=== PATIENT | male | born 1935 | race Caucasian/White ===

== ENCOUNTER 2017-06-27 16:12 | Inpatient (IN) | payer OTHER, MEDICARE ==
--- NOTE | 2017-06-27 16:53 | PDOC ---
History of Present Illness - General History Source: Patient Exam Limitations: No Limitations - History of Present Illness Initial Comments: 06/27/17 17:22 The patient is a 82 year old male with a significant past medical history of breast cancer s/p right mastectomy (2003), anemia, AFib (1999 on coumadin, PPM, 2004), s/p pacemaker, diabetes, hypertension and hyperlipidemia who presents to the ED, via EMS, s/p injury earlier today. Patient states he was at [employer] in a self-driving shopping cart when he went to turn a corner and fell onto his left side. Patient comes into the ED with a wound to his left wrist, pain to his left shoulder and pain to his left hip. Denies head injury. Denies loss of consciousness. Denies focal numbness, weakness or tingling. Denies nausea or vomiting. Denies any other symptoms. <Nishant Sutton - Last Filed: 06/27/17 19:55> <Barbara Orellana - Last Filed: 06/27/17 23:09> - General Stated Complaint: FALL Time Seen by Provider: 06/27/17 16:29 Past History <Nishant Sutton - Last Filed: 06/27/17 19:55> - Past Medical History Anemia: Yes Asthma: No Cancer: Yes (S/P RIGHT BREAST CANCER;MASTECTOMY 2003) Cardiac Disorders: Yes (H/O A FIB 1999,PPM 2004) CVA: No COPD: No CHF: No Dementia: No Diabetes: Yes GI Disorders: No Disorders: No HTN: Yes Hypercholesterolemia: Yes Liver Disease: No Seizures: No Thyroid Disease: No - Surgical History Abdominal Surgery: No Appendectomy: No Cardiac Surgery: Yes (PACEMAKER) Cholecystectomy: No Lung Surgery: No Neurologic Surgery: No Orthopedic Surgery: No - Immunization History Immunization Up to Date: Yes - Suicide/Smoking/Psychosocial Hx Smoking Status: No Smoking History: Unknown if ever smoked Have you smoked in the past 12 months: No Number of Cigarettes Smoked Daily: 0 Cigars Per Day: 0 Hx Alcohol Use: No Drug/Substance Use Hx: No Substance Use Type: None Hx Substance Use Treatment: No <Barbara Orellana - Last Filed: 06/27/17 23:09> - Past Medical History Allergies/Adverse Reactions: Allergies Allergy/AdvReac Type Severity Reaction Status Date / Time levofloxacin [From Levaquin] Allergy Rash Verified 06/27/17 17:39 Home Medications: Ambulatory Orders Colchicine [Colcrys] 0.6 mg PO DAILY 03/27/15 Pantoprazole Sodium [Protonix] 40 mg PO DAILY 03/27/15 Sertraline HCl [Zoloft -] 50 mg PO DAILY 03/27/15 Simvastatin [Zocor -] 20 mg PO HS 03/27/15 Amlodipine Besylate [Norvasc -] 5 mg PO DAILY #30 tablet 09/27/15 Carvedilol [Coreg -] 25 mg PO BID #60 tablet 09/27/15 Furosemide [Lasix -] 40 mg PO DAILY #30 tablet 09/27/15 Polyethylene Glycol 3350 [Miralax 119 gm Btl -] 17 gm PO DAILY PRN #1 bottle Valsartan [Diovan] 160 mg PO DAILY #30 tablet 09/27/15 Warfarin Na [Coumadin -] 5 mg PO DAILY@1800 #30 tablet 09/27/15 Review of Systems - Review of Systems Able to Perform ROS?: Yes Comments:: 06/27/17 17:22 CONSTITUTIONAL: Absent: fever, chills, diaphoresis, generalized weakness, malaise, loss of appetite HEENT: Absent: rhinorrhea, nasal congestion, throat pain, throat swelling, difficulty swallowing, mouth swelling, ear pain, eye pain, visual Changes CARDIOVASCULAR: Absent: chest pain, syncope, palpitations, irregular heart rate, lightheadedness , peripheral edema RESPIRATORY: Absent: cough, shortness of breath, dyspnea with exertion, orthopnea, wheezing, stridor, hemoptysis GASTROINTESTINAL: Absent: abdominal pain, abdominal distension, nausea, vomiting, diarrhea, constipation, melena, hematochezia GENITOURINARY: Absent: dysuria, frequency, urgency, hesitancy, hematuria, flank pain, genital pain MUSCULOSKELETAL: + left hip pain, left shoulder pain Absent: joint swelling SKIN: + wrist wound Absent: rash, itching, pallor HEMATOLOGIC/IMMUNOLOGIC: Absent: easy bleeding, easy bruising, lymphadenopathy, frequent infections ENDOCRINE: Absent: unexplained weight gain, unexplained weight loss, heat intolerance, cold intolerance NEUROLOGIC: Absent: headache, focal weakness or paresthesias, dizziness, unsteady gait, seizure, mental status changes, bladder or bowel incontinence PSYCHIATRIC: Absent: anxiety, depression, suicidal or homicidal ideation, hallucinations. All Other Systems: Reviewed and Negative <Nishant Sutton - Last Filed: 06/27/17 19:55> *Physical Exam - Physical Exam Comments: 06/27/17 17:22 GENERAL: + cachectic Awake and alert. No acute distress. HEENT: Normocephalic, atraumatic. PERRLA, EOMI. No conjunctival pallor. Sclera are non- icteric. Moist mucous membranes. Oropharynx is clear. NECK: Supple. Full ROM. No JVD. Carotid pulses 2+ and symmetric, without bruits. No thyromegaly. No lymphadenopathy. CARDIOVASCULAR: Regular rate and rhythm. No murmurs, rubs, or gallops. Distal pulses are 2+ and symmetric. PULMONARY: No evidence of respiratory distress. Lungs clear to auscultation bilaterally. No wheezing, rales or rhonchi. ABDOMINAL: Soft. Non-tender. Non-distended. No rebound or guarding. No organomegaly. Normoactive bowel sounds. MUSCULOSKELETAL Normal range of motion at all joints. No bony deformities or tenderness. No CVA tenderness. EXTREMITIES: + left shoulder pain, left hip pain No cyanosis. No clubbing. No edema. No calf tenderness. SKIN: + abrasion on left wrist. well healed right mastectomy scar Warm and dry. Normal capillary refill. No rashes. No jaundice. NEUROLOGICAL: + require walker for ambulation Alert, awake, appropriate. Cranial nerves 2-12 intact. No deficits to light touch and temperature in face, upper extremities and lower extremities. No motor deficits in the in face, upper extremities and lower extremities. Normoreflexic in the upper and lower extremities. Normal speech. Toes are down- going bilaterally. PSYCHIATRIC: Cooperative. Good eye contact. Appropriate mood and affect. <Nishant Sutton - Last Filed: 06/27/17 19:55> ED Treatment Course - RADIOLOGY Radiograph Interpretation: 06/27/17 19:55 EXAM: CT HEAD WITHOUT IV CONTRAST IMPRESSION: No acute intracranial abnormality or skull fracture. This CT exam has been performed using low dose protocols to limit radiation exposure to as low as reasonably achievable. This center is recognized and certified by the [employer], a designation awarded to centers who have demonstrated faculty competency, clinical image excellence and radiation safety compliance requirements. Reported by: Imaging loan documentation specialist <Nishant Sutton - Last Filed: 06/27/17 19:55> - LABORATORY CBC & Chemistry Diagram: 06/27/17 19:42 06/27/17 19:42 - RADIOLOGY Radiology Studies Ordered: Category Date Time Status HEAD CT WITHOUT CONTRAST [CT] Stat CT Scan 06/27/17 16:51 Ordered <Barbara Orellana - Last Filed: 06/27/17 23:09> *DC/Admit/Observation/Transfer - Attestations Scribe Attestion: 06/27/17 17:23 Documentation prepared by Nishant Sutton, acting as diagnostic medical sonographer for Barbara Orellana MD <Nishant Sutton - Last Filed: 06/27/17 19:55> - Discharge Dispostion Decision to Admit order: Yes <Barbara Orellana - Last Filed: 06/27/17 23:09> Diagnosis at time of Disposition: Pacemaker, Supratherapeutic INR Chronic kidney disease (CKD) Qualifiers: Chronic kidney disease stage: unspecified stage Qualified Code(s): N18.9 - Chronic kidney disease, unspecified Anemia Qualifiers: Anemia type: unspecified type Qualified Code(s): D64.9 - Anemia, unspecified Afib Qualifiers: Atrial fibrillation type: chronic Qualified Code(s): I48.2 - Chronic atrial fibrillation Closed left hip fracture Qualifiers: Encounter type: initial encounter Qualified Code(s): S72.002A - Fracture of unspecified part of neck of left femur, initial encounter for closed fracture Shoulder injury Qualifiers: Encounter type: initial encounter Laterality: left Qualified Code(s): S49.92XA - Unspecified injury of left shoulder and upper arm, initial encounter - Referrals Referrals: Garret Huang MD [Primary Care Provider] - - Patient Instructions - Post Discharge Activity
[2017-06-27 17:39] VITALS: BMI 22.1
[2017-06-27] MEDS ORDERED: morphine CARPU-JECT 2 MG/1 ML DISP.SYRIN IVPUSH ONE (20:04)
[2017-06-27] MEDS ORDERED: morphine SULFATE 4 MG/ML VIAL ONE (20:33)
[2017-06-27 20:52] LABS: BASO % 0.6 % (0-2.0); EOS % 0.8 % (0-4.5); HEMOGLOBIN 10.4 GM/dL (11.7-16.9); LYMPH % 15.1 % (8-40); MCH 27.8 pg (25.7-33.7); MCHC 32.5 g/dl (32.0-35.9); MEAN CELL VOLUME 85.5 fl (80-96); MEAN PLT VOLUME 8.8 fl (7.5-11.1); NEUT % 68.5 % (42.8-82.8); PLATELET COUNT 203 K/MM3 (134-434); RBC 3.75 M/mm3 (4.00-5.60); RDW 20.2 % (11.9-15.9); WHITE BLOOD COUNT 5.3 K/mm3 (4.0-10.0)
[2017-06-27 21:08] LABS: PROTHROMBIN TIME (PATIENT) 69.9 SEC (9.7-13.0)
[2017-06-27 21:14] LABS: INR 6.19 (0.82-1.09)
[2017-06-27 21:19] LABS: ALBUMIN 3.1 g/dl (3.4-5.0); ALK PHOS 131 U/L (45-117); ANION GAP 9 (8-16); BILIRUBIN,TOTAL 0.9 mg/dL (0.2-1.0); BLOOD UREA NITROGEN 57 mg/dL (7-18); CALCIUM 8.7 mg/dL (8.5-10.1); CHLORIDE 101 mmol/L (98-107); CO2 28 mmol/L (21-32); CREATININE 1.9 mg/dL (0.7-1.3); GLUCOSE,RANDOM 92 mg/dL (74-106); POTASSIUM 3.9 mmol/L (3.5-5.1); SGOT/AST 21 U/L (15-37); SGPT/ALT 24 U/L (12-78); SODIUM 138 mmol/L (136-145); TOT PROT 6.4 g/dl (6.4-8.2)
--- NOTE | 2017-06-27 23:29 | HP ---
CHIEF COMPLAINT: L hip and shoulder pain PCP: Sal HISTORY OF PRESENT ILLNESS: This is an 82 year old male with a significant PMH of Afib on warfarin, anemia, HTN< CHF who presented to the ED s/p mechanical fall. Pt states that he was riding a mechanical shopping cart which tipped when he made a turn and he fell onto his left side. He is c/o pain to left shoulder and left hip. ER course was notable for: (1) L hip fx (2) ? L shoulder avulsion fx (3) INR 6.1 Recent Travel: pt denies PAST MEDICAL HISTORY: Afib, HTN, HLD, CHF, Anemia, DM, BrCA R, gout PAST SURGICAL HISTORY: PPM R mastectomy with LND (negative) 2003 PPM 2004 Social History: Smoking: pt denies Alcohol: pt denies Drugs: pt denies Family History: mother age 82, unk COD father age 86, unk COD Allergies levofloxacin [From Levaquin] Allergy (Verified 06/27/17 17:39) Rash HOME MEDICATIONS: 3 Medication Instructions Recorded Colchicine [Colcrys] 0.6 mg PO DAILY 03/27/15 Pantoprazole Sodium [Protonix] 40 mg PO DAILY 03/27/15 Sertraline HCl [Zoloft -] 50 mg PO DAILY 03/27/15 Simvastatin [Zocor -] 20 mg PO HS 03/27/15 Amlodipine Besylate [Norvasc -] 5 mg PO DAILY #30 tablet 09/27/15 Carvedilol [Coreg -] 25 mg PO BID #60 tablet 09/27/15 Furosemide [Lasix -] 40 mg PO DAILY #30 tablet 09/27/15 Polyethylene Glycol 3350 [Miralax 17 gm PO DAILY PRN #1 bottle 09/27/15 119 gm Btl -] Valsartan [Diovan] 160 mg PO DAILY #30 tablet 09/27/15 Warfarin Na [Coumadin -] 5 mg PO DAILY@1800 #30 tablet 09/27/15 REVIEW OF SYSTEMS CONSTITUTIONAL: Absent: fever, chills, diaphoresis, generalized weakness, malaise, loss of appetite, weight change HEENT: Absent: rhinorrhea, nasal congestion, throat pain, throat swelling, difficulty swallowing, mouth swelling, ear pain, eye pain, visual changes CARDIOVASCULAR: Absent: chest pain, syncope, palpitations, irregular heart rate, lightheadedness , peripheral edema RESPIRATORY: Absent: cough, shortness of breath, dyspnea with exertion, orthopnea, wheezing, stridor, hemoptysis GASTROINTESTINAL: Absent: abdominal pain, abdominal distension, nausea, vomiting, diarrhea, constipation, melena, hematochezia GENITOURINARY: Absent: dysuria, frequency, urgency, hesitancy, hematuria, flank pain, genital pain MUSCULOSKELETAL: Present: L hip and shoulder pain Absent: myalgia, arthralgia, joint swelling, back pain, neck pain SKIN: Absent: rash, itching, pallor HEMATOLOGIC/IMMUNOLOGIC: Absent: easy bleeding, easy bruising, lymphadenopathy, frequent infections ENDOCRINE: Absent: unexplained weight gain, unexplained weight loss, heat intolerance, cold intolerance NEUROLOGIC: Absent: headache, focal weakness or paresthesias, dizziness, unsteady gait, seizure, mental status changes, bladder or bowel incontinence PSYCHIATRIC: Absent: anxiety, depression, suicidal or homicidal ideation, hallucinations. PHYSICAL EXAMINATION Vital Signs - 24 hr 3 06/27/17 17:37 Temperature 97.3 F L Pulse Rate 67 Respiratory 17 Rate Blood Pressure 103/66 O2 Sat by Pulse 98 Oximetry (%) GENERAL: Awake, alert, and fully oriented, in no acute distress. HEAD: Normal with no signs of trauma. EYES: Pupils equal, round and reactive to light, extraocular movements intact, sclera anicteric, conjunctiva clear. No lid lag. EARS, NOSE, THROAT: Ears normal, nares patent, oropharynx clear without exudates. Moist mucous membranes. NECK: Normal range of motion, supple without lymphadenopathy, JVD, or masses. LUNGS: Breath sounds equal, clear to auscultation bilaterally. No wheezes, and no crackles. No accessory muscle use. HEART: Regular rate and rhythm, normal S1 and S2 without murmur, rub or gallop. ABDOMEN: Soft, nontender, not distended, normoactive bowel sounds, no guarding, no rebound, no masses. No hepatomegaly or splenomegaly. MUSCULOSKELETAL: Normal range of motion at all joints except L hip. No bony deformities or tenderness. No CVA tenderness. L leg shortened and rotated UPPER EXTREMITIES: 2+ pulses, warm, well-perfused. No cyanosis. No clubbing. No peripheral edema. LOWER EXTREMITIES: 2+ pulses, warm, well-perfused. No calf tenderness. No peripheral edema. NEUROLOGICAL: Cranial nerves II-XII intact. Normal speech. PSYCHIATRIC: Cooperative. Good eye contact. Appropriate mood and affect. SKIN: Warm, dry, normal turgor, no rashes or lesions noted, normal capillary refill. Laboratory Results - last 24 hr 3 06/27/17 06/27/17 06/27/17 06/27/17 19:42 19:42 19:42 19:47 WBC 5.3 D RBC 3.75 L D Hgb 10.4 L D Hct 32.0 L MCV 85.5 MCH 27.8 MCHC 32.5 RDW 20.2 H D Plt Count 203 D MPV 8.8 D Neutrophils % 68.5 Lymphocytes % 15.1 Monocytes % 15.0 H Eosinophils % 0.8 Basophils % 0.6 PT with INR 69.90 H INR 6.19 H* D Sodium 138 Potassium 3.9 Chloride 101 Carbon Dioxide 28 Anion Gap 9 BUN 57 H Creatinine 1.9 H Creat Clearance w eGFR 34.19 Random Glucose 92 D Calcium 8.7 Total Bilirubin 0.9 D AST 21 D ALT 24 D Alkaline Phosphatase 131 H B-Natriuretic Peptide 7633.37 H Total Protein 6.4 Albumin 3.1 L Blood Type B POSITIVE Antibody Screen Negative ECG ventricular paced rhythm with frequent premature ventricular complexes vent rate 66, QTC 555 Radiology Report L hip xray + fem neck fracture L shoulder ? avulsion fx CT head, read pending ASSESSMENT/PLAN: 82yM with PMH Afib, HTN, HLD, CHF, Anemia, DM, BrCA R mastectomy, gout, PPM presented to the ED with left hip and shoulder pain s/p fall. Left hip fracture - ortho consult - INR elevated, hold warfarin - will need surgery when INR normalizes - morphine prn Left shoulder pain, ? avulsion fx - await xray read - ortho consult Afib with supratherapeutic INR - INR 6.1, hold coumadin, if active bleeding noted or drop in H/H will give vit K HTN/HLD/CHF - cont home meds, no s/s fluid overload. DM - as per history, glucose 92 on labs, cont to monitor on BMP and add novolog ss and bgm if elevated CKD - bun / cr close to baseline, cont to monitor DVT PPX - heparin deferred as INR elevated, would start after surgery FEN - defer IVF. tolerating po - BMP in am - low sodium diet as tolerated Dispo: pt currently requires further inpatient management of his emergent condition. Visit type - Emergency Visit Emergency Visit: Yes ED Registration Date: 06/27/17 Care time: The patient presented to the Emergency Department on the above date and was hospitalized for further evaluation of their emergent condition. - New Patient This patient is new to me today: Yes Date on this admission: 06/27/17 - Critical Care Critical Care patient: No Hospitalist Screening - Colonoscopy Questionnaire Colonoscopy Questionnaire: Colonoscopy Questionnaire - Patient: 50 - 75 years old and never had a screening colonoscopy: No History of colon or rectal polyps, or CA: No History of IBD, Crohn's disease or UC: No History of abdominal radiation therapy as a child: No - Relative: 1 with colon or rectal CA, or polyps at age 60 or younger: No Colon or rectal CA diagnosed at age 45 or younger: No Multiple relatives with colon or rectal CA: No - Outcome: Screening Result: Negative Screen
[2017-06-28] MEDS ORDERED: morphine CARPU-JECT 4 MG/1 ML DISP.SYRIN IVPUSH STA (00:02)
[2017-06-28] MEDS ORDERED: morphine SULFATE 4 MG/ML VIAL ONE (00:04)
[2017-06-28] MEDS ORDERED: POLYETHYLENE GLYCOL 3350 119 GM BTL PO PRN (00:35)
[2017-06-28] MEDS: morphine CARPU-JECT 2 MG/1 ML DISP.SYRIN IVPUSH PRN ×2 (06:02→10:41)
[2017-06-28] MEDS ORDERED: morphine CARPU-JECT 2 MG/1 ML DISP.SYRIN ONE ×2 (06:03→10:38)
[2017-06-28 07:45] LABS: BASO % 0.8 % (0-2.0); EOS % 1.4 % (0-4.5); HEMATOCRIT 29.4 % (35.4-49); HEMOGLOBIN 9.7 GM/dL (11.7-16.9); LYMPH % 19.4 % (8-40); MCH 28.2 pg (25.7-33.7); MCHC 32.9 g/dl (32.0-35.9); MEAN CELL VOLUME 85.9 fl (80-96); MEAN PLT VOLUME 9.3 fl (7.5-11.1); MONO % 17.8 % (3.8-10.2); NEUT % 60.6 % (42.8-82.8); PLATELET COUNT 187 K/MM3 (134-434); RBC 3.43 M/mm3 (4.00-5.60); RDW 20.1 % (11.9-15.9); WHITE BLOOD COUNT 4.3 K/mm3 (4.0-10.0)
[2017-06-28 08:22] LABS: CHLORIDE 99 mmol/L (98-107); POTASSIUM 3.8 mmol/L (3.5-5.1); SODIUM 137 mmol/L (136-145)
[2017-06-28 08:38] LABS: ANION GAP 9 (8-16); BLOOD UREA NITROGEN 60 mg/dL (7-18); CALCIUM 8.6 mg/dL (8.5-10.1); CO2 29 mmol/L (21-32); CREATININE 1.9 mg/dL (0.7-1.3); GLUCOSE,RANDOM 155 mg/dL (74-106); MAGNESIUM 2.1 mg/dL (1.8-2.4); PHOSPHOROUS 3.7 mg/dL (2.5-4.9)
[2017-06-28] MEDS ORDERED: VALSARTAN 160 MG TABLET (UD) PO SCH (10:00)
[2017-06-28] MEDS ORDERED: COLCHICINE 0.6 MG TABLET (FP) PO SCH (10:00)
[2017-06-28] MEDS ORDERED: FUROSEMIDE 40 MG TABLET (FP) PO SCH (10:00)
[2017-06-28] MEDS ORDERED: CARVEDILOL 25 MG TABLET (FP) PO SCH (10:00)
[2017-06-28] MEDS ORDERED: PANTOPRAZOLE 40 MG TABLET (FP) PO SCH (10:00)
[2017-06-28] MEDS ORDERED: SERTRALINE HCL 50 MG TABLET (FP) PO SCH (10:00)
[2017-06-28] MEDS ORDERED: amLODIPine BESYLATE 5 MG TABLET (FP) PO SCH (10:00)
[2017-06-28 10:07] LABS: PROTHROMBIN TIME (PATIENT) 88.2 SEC (9.7-13.0)
[2017-06-28 10:31] LABS: INR 7.81 (0.82-1.09)
--- NOTE | 2017-06-28 11:33 | CON.ORTH ---
Consult Reason for Consultation:: left hip fx, shoulder fx - Past Medical History Cardio/Vascular: Yes: AFIB, CAD, CHF, HTN, Hyperlipdemia Renal/: Yes: Renal Inusuff Endocrine: Yes: Diabetes Mellitus - Past Surgical History Past Surgical History: Yes: Permanent Pacemaker - Alcohol/Substance Use Hx Alcohol Use: No - Smoking History Smoking history: Unknown if ever smoked Have you smoked in the past 12 months: No Aproximately how many cigarettes per day: 0 Home Medications - Allergies Allergies/Adverse Reactions: Allergies Allergy/AdvReac Type Severity Reaction Status Date / Time levofloxacin [From Levaquin] Allergy Rash Verified 06/27/17 17:39 - Home Medications Home Medications: Ambulatory Orders Colchicine [Colcrys] 0.6 mg PO DAILY 03/27/15 Pantoprazole Sodium [Protonix] 40 mg PO DAILY 03/27/15 Sertraline HCl [Zoloft -] 50 mg PO DAILY 03/27/15 Simvastatin [Zocor -] 20 mg PO HS 03/27/15 Amlodipine Besylate [Norvasc -] 5 mg PO DAILY #30 tablet 09/27/15 Carvedilol [Coreg -] 25 mg PO BID #60 tablet 09/27/15 Furosemide [Lasix -] 40 mg PO DAILY #30 tablet 09/27/15 Polyethylene Glycol 3350 [Miralax 119 gm Btl -] 17 gm PO DAILY PRN #1 bottle Valsartan [Diovan] 160 mg PO DAILY #30 tablet 09/27/15 Warfarin Na [Coumadin -] 5 mg PO DAILY@1800 #30 tablet 09/27/15 Physical Exam for Ortho Vital Signs: Vital Signs Temperature 98.6 F 06/28/17 05:39 Pulse Rate 73 06/28/17 10:42 Respiratory Rate 18 06/28/17 10:42 Blood Pressure 113/71 06/28/17 10:42 O2 Sat by Pulse Oximetry (%) 100 06/28/17 10:42 Labs: CBC, BMP 06/28/17 06:33 06/28/17 06:33 INR, PTT INR 7.81 (0.82-1.09) H* 06/28/17 09:35 - Upper Extremity Shoulder: Yes: Left, Limited ROM, Pain, Tenderness, Other (nvi) - Lower Extremity Hip: Yes: Left, Decreased ROM, Leg Externally Rotated, Leg Shortened, Pain, Swelling, Other (nvi) Imaging - Results X-ray: Report Reviewed, Image Reviewed Assessment/Plan 82 year old male with a significant PMH of Afib on warfarin, anemia, HTN< CHF who presented to the ED s/p mechanical fall. Pt states that he was riding a mechanical shopping cart which tipped when he made a turn and he fell onto his left side. He is c/o pain to left shoulder and left hip. a/p left displaced femoral neck fx, left acromion avulsion fx NTD for acromion other than pain control, ROM exercises- no immobilization needed Risks and benefits were d/w pt and family regarding left hip Recommend left hip hemiarthroplasty Pt and family are thinking about transferring to another hospital If decide not to, will need surgical clearance INR significantly elevated Family to decide shortly d/w Dr. Sandoval
--- NOTE | 2017-06-28 11:49 | PN ---
Progress Note, Physician History of Present Illness: pt seen/ examined in er chart reviewed. comfortable pain ok Family at bedside Requesting transfer to [facility] Pt denies cp/ sob. no bleeding - Current Medication List Current Medications: Active Medications Amlodipine Besylate (Norvasc -) 5 mg PO DAILY [facility] Last Admin: 06/28/17 10:18 Dose: 5 mg Atorvastatin Calcium (Lipitor -) 10 mg PO [facility] Carvedilol (Coreg -) 25 mg PO BID [facility] Last Admin: 06/28/17 10:17 Dose: 25 mg Colchicine (Colcrys -) 0.6 mg PO DAILY [facility] Last Admin: 06/28/17 10:17 Dose: 0.6 mg Furosemide (Lasix -) 40 mg PO DAILY [facility] Last Admin: 06/28/17 10:18 Dose: 40 mg Morphine Sulfate (Morphine Injection -) 2 mg IVPUSH Q4H PRN PRN Reason: PAIN LEVEL 6-10 Last Admin: 06/28/17 10:41 Dose: 2 mg Pantoprazole Sodium (Protonix -) 40 mg PO DAILY [facility] Last Admin: 06/28/17 10:18 Dose: 40 mg Polyethylene Glycol (Miralax (For Daily Use) -) 17 gm PO DAILY PRN PRN Reason: CONSTIPATION Sertraline HCl (Zoloft -) 50 mg PO DAILY [facility] Last Admin: 06/28/17 10:18 Dose: 50 mg Valsartan (Diovan -) 160 mg PO DAILY [facility] Last Admin: 06/28/17 10:18 Dose: 160 mg - Objective Vital Signs: Vital Signs Temperature 98.6 F 06/28/17 05:39 Pulse Rate 73 06/28/17 10:42 Respiratory Rate 18 06/28/17 10:42 Blood Pressure 113/71 06/28/17 10:42 O2 Sat by Pulse Oximetry (%) 100 06/28/17 10:42 Constitutional: Yes: No Distress, Calm Eyes: Yes: Conjunctiva Clear Neck: Yes: Supple, Trachea Midline Cardiovascular: Yes: Pulse Irregular Respiratory: Yes: Diminished Gastrointestinal: Yes: Normal Bowel Sounds, Soft, Other (Anterior Abdominal wall hernia +) Edema: No Peripheral Pulses WNL: Yes Neurological: Yes: Alert Psychiatric: Yes: Alert Labs: CBC, BMP 06/28/17 06:33 06/28/17 06:33 INR, PTT INR 7.81 (0.82-1.09) H* 06/28/17 09:35 - ....Imaging Chest X-ray: Report Reviewed X-ray: Report Reviewed Problem List - Problems (1) Afib Code(s): I48.91 - UNSPECIFIED ATRIAL FIBRILLATION Qualifiers: Atrial fibrillation type: chronic Qualified Code(s): I48.2 - Chronic atrial fibrillation (2) Anemia Code(s): D64.9 - ANEMIA, UNSPECIFIED Qualifiers: Anemia type: unspecified type Qualified Code(s): D64.9 - Anemia, unspecified (3) Chronic kidney disease (CKD) Code(s): N18.9 - CHRONIC KIDNEY DISEASE, UNSPECIFIED Qualifiers: Chronic kidney disease stage: unspecified stage Qualified Code(s): N18.9 - Chronic kidney disease, unspecified (4) Closed left hip fracture Code(s): S72.002A - FRACTURE OF UNSP PART OF NECK OF LEFT FEMUR, INIT Qualifiers: Encounter type: initial encounter Qualified Code(s): S72.002A - Fracture of unspecified part of neck of left femur, initial encounter for closed fracture (5) Pacemaker Code(s): Z95.0 - PRESENCE OF CARDIAC PACEMAKER (6) Shoulder injury Code(s): S49.90XA - UNSP INJURY OF SHOULDER AND UPPER ARM, UNSP ARM, INIT ENCNTR Qualifiers: Encounter type: initial encounter Laterality: left Qualified Code(s): S49.92XA - Unspecified injury of left shoulder and upper arm, initial encounter (7) Supratherapeutic INR Code(s): R79.1 - ABNORMAL COAGULATION PROFILE (8) Coronary artery disease Code(s): I25.10 - ATHSCL HEART DISEASE OF [place] CORONARY ARTERY W/O ANG PCTRS Qualifiers: Coronary Disease-Associated Artery/Lesion type: [place] artery [place] vs. transplanted heart: [place] heart Associated angina: without angina Qualified Code(s): I25.10 - Atherosclerotic heart disease of [place] coronary artery without angina pectoris Assessment/Plan Discussed in detail wit pts family They are making arrangement for transfer continue present care Coumadin on hold will allow inr to come down on its own - unless develops bleed. Ortho consult also noted I expect transfer later today Discussed with nursing staff also Time spend 30 min in examining/ documenting and coordating care will follow
[2017-06-28 19:03] VITALS: BP 99/68; PULSE 63; TEMP 96
[2017-06-28] MEDS ORDERED: ATORVASTATIN CA 10 MG TABLET (FP) PO SCH (22:00)
--- NOTE | 2017-06-28 23:45 | EKG ---
Test Reason : Blood Pressure : / mmHG Vent. Rate : 066 BPM Atrial Rate : 416 BPM P-R Int : 000 ms QRS Dur : 214 ms QT Int : 530 ms P-R-T Axes : 000 -73 093 degrees QTc Int : 555 ms Ventricular-paced rhythm WITH FREQUENT PREMATURE VENTRICULAR COMPLEXES UNDERLYING ATRIAL FIBRILLATION ABNORMAL ECG WHEN COMPARED WITH ECG OF 14-SEP-2015 09:40, PREMATURE VENTRICULAR COMPLEXES ARE NOW PRESENT VENT. RATE HAS INCREASED BY 3 BPM Confirmed by JETT ORTEGA, BRYANT ([id number]) on 06/28/2017 11:45:01 PM Referred By: Confirmed By:BRYANT FRAUSTO MD
--- NOTE | 2017-06-29 15:15 | DS ---
Physical Examination Vital Signs: Vital Signs Temperature 96.0 F L 06/28/17 18:00 Pulse Rate 63 06/28/17 18:00 Respiratory Rate 20 06/28/17 18:00 Blood Pressure 99/68 06/28/17 18:00 O2 Sat by Pulse Oximetry (%) 100 06/28/17 10:42 Findings/Remarks: see progress note of 06/28 Labs: CBC, BMP 06/28/17 06:33 06/28/17 06:33 Discharge Summary Reason For Visit: CHRONIC KIDNEY DISEASE, ANEMIA Hospital Course: patient transferred to another hospital----for further care--- per patient's family request Diagnoses--- fall----hip fracture Condition: Stable - Instructions Referrals: Garret Huang MD [Primary Care Provider] - Disposition: TRANSFER ACUTE CARE/OTHER HOSP - Home Medications Comprehensive Discharge Medication List: Ambulatory Orders Colchicine [Colcrys] 0.6 mg PO DAILY 03/27/15 Pantoprazole Sodium [Protonix] 40 mg PO DAILY 03/27/15 Sertraline HCl [Zoloft -] 50 mg PO DAILY 03/27/15 Simvastatin [Zocor -] 20 mg PO HS 03/27/15 Amlodipine Besylate [Norvasc -] 5 mg PO DAILY #30 tablet 09/27/15 Carvedilol [Coreg -] 25 mg PO BID #60 tablet 09/27/15 Furosemide [Lasix -] 40 mg PO DAILY #30 tablet 09/27/15 Polyethylene Glycol 3350 [Miralax 119 gm Btl -] 17 gm PO DAILY PRN #1 bottle Valsartan [Diovan] 160 mg PO DAILY #30 tablet 09/27/15 Warfarin Na [Coumadin -] 5 mg PO DAILY@1800 #30 tablet 09/27/15
== END 2017-06-28 20:15 | disposition short-term general hospital (02) | DRG 536 ==
LOC: JER 16:12 → JERBED 23:21 → J5S 06-28 14:45
PROVIDERS: ADMIT Internal Medicine; ATTEND Internal Medicine
DX: S72.002A Fracture of unspecified part of neck of left femur, initial encounter for closed fracture (principal); I13.0 Hypertensive heart and chronic kidney disease with heart failure and stage 1 through stage 4 chronic kidney disease, or unspecified chronic kidney disease; S42.122A Displaced fracture of acromial process, left shoulder, initial encounter for closed fracture; I48.2 Chronic atrial fibrillation; I25.10 Atherosclerotic heart disease of native coronary artery without angina pectoris; E78.5 Hyperlipidemia, unspecified; D64.9 Anemia, unspecified; M10.9 Gout, unspecified; E11.22 Type 2 diabetes mellitus with diabetic chronic kidney disease; N18.9 Chronic kidney disease, unspecified; K46.9 Unspecified abdominal hernia without obstruction or gangrene; I50.9 Heart failure, unspecified; R79.1 Abnormal coagulation profile; Z85.3 Personal history of malignant neoplasm of breast; Z95.0 Presence of cardiac pacemaker; W17.82XA Fall from (out of) grocery cart, initial encounter; Y93.89 Activity, other specified
CPT/HCPCS: 36415; 70450-TC; 71045-TC-FY; 73030-TC-LT-FY; 73523-TC-FY; 80048; 80053; 83735; 83880; 84100; 85025; 85610; 85730; 86850; 86900; 86901; 93005; 93010; 99283-25

== ENCOUNTER 2018-02-07 16:01 | Inpatient (IN) | payer OTHER, MEDICARE ==
[2018-02-07] MEDS ORDERED: ONDANSETRON 4 MG/2 ML VIAL IVPUSH ONE (16:38)
--- NOTE | 2018-02-07 16:57 | PDOC ---
Attending Attestation - HPI HPI: 02/07/18 17:54 "The patient is an 82-year-old male with a past medical history significant for CAD s/p PCI stent, AFib on Warfarin, HTN, CHF, DM, hx of breast CA s/p mastectomy, CKD presents to the emergency department with nausea, vomiting, and shortness of breath. The patient presents with several days of nausea with NBNB vomiting accompanied with shortness of breath. The patient denies abdominal pain but reports pressure with palpation. The patient reports relief with laying on his right side. The patient has a hx of a right-sided hernia. Pt dneis any cp, fever/chills, cough, diarrhea, dysuria, Pt endorses some LE edema but is currently improved. per aid pt usually sleeps in an incline, and has been asking her to reposition him to the R side recently. Allergies: Levofloxacin Social history: None reported Surgical history: PPM, R mastectomy 2003 PCP: Garret Ahn MD" 02/07/18 18:03 - Medical Decision Making 02/07/18 17:55 Documentation prepared by Liana Gomes, acting as medical imaging director for Travis Singh MD. <Liana Gomes - Last Filed: 02/07/18 18:03> - Resident Resident Name: Esteban Mendosa - ED Attending Attestation I have performed the following: I have examined & evaluated the patient, The case was reviewed & discussed with the resident, I agree w/resident's findings & plan, Exceptions are as noted - Physicial Exam PE: 02/07/18 17:46 GENERAL: The patient is awake, alert, and fully oriented, Nontoxic - in no acute distress. HEAD: Normocephalic, atraumatic. EYES: extraocular movements intact, sclera anicteric, conjunctiva clear. ENT: Normal voice, Moist mucous membranes. NECK: Normal range of motion, supple LUNGS:deminished breasth sounds in R base HEART: Regular rate and rhythm, normal S1 and S2 without murmur, rub or gallop. ABDOMEN: +abd hernia without focal tenderness, reducible, soft EXTREMITIES: Normal range of motion, trace edema. no calf tenderness NEUROLOGICAL: No facial assymetry, Normal speech, moving all 4 ext spontaneously and symmetrically PSYCH: Normal mood, normal affect. SKIN: Warm, Dry, normal turgor, - Medical Decision Making 02/07/18 17:46 The patient is an 82-year-old male with a past medical history significant for CAD s/p PCI stent, AFib on Warfarin, HTN, CHF, DM, hx of breast CA s/p mastectomy, CKD presents with sob x several days associated with nauesa. on exam pt in no distress +soft reducible abd hernia deminshed breath sounds in R base trace pitting edmea ddx - pna, chf, pleural effusion, pericardial effusion will ck labs, cxr, ekg will reasesss A portion of this note was documented by scribe services under my direction. I have reviewed the details of the note, within reason, and agree with the documentation with the following case summary and management plan written by me 02/07/18 18:43 The patient's lab work was reviewed cxr suggestive of pleural effusion - will obtain CT to furthe evaluate signed out to evening team to fu with results and dispo pt, likely admission original sat noted to be hypoxic, but repeat sat was normal <Travis Singh - Last Filed: 02/12/18 07:09> Heart Score/ECG Review - ECG Impressions Comment:: 02/07/18 17:50 Twelve-lead EKG was performed and reviewed by me. irregularly irregular rate of 78 twi in lateral leads <Travis Singh - Last Filed: 02/12/18 07:09>
[2018-02-07] MEDS ORDERED: ONDANSETRON 4 MG/2 ML VIAL ONE (18:01)
[2018-02-07 18:02] LABS: BASO % 0.5 % (0-2.0); EOS % 0.6 % (0-4.5); HEMATOCRIT 37.5 % (35.4-49); HEMOGLOBIN 11.9 GM/dL (11.7-16.9); LYMPH % 13.3 % (8-40); MCHC 31.7 g/dl (32.0-35.9); MEAN CELL VOLUME 97.6 fl (80-96); MEAN PLT VOLUME 8.6 fl (7.5-11.1); MONO % 6.3 % (3.8-10.2); NEUT % 79.3 % (42.8-82.8); PLATELET COUNT 186 K/MM3 (134-434); RBC 3.84 M/mm3 (4.00-5.60); RDW 17.7 % (11.9-15.9); WHITE BLOOD COUNT 6.2 K/mm3 (4.0-10.0)
[2018-02-07 18:22] LABS: INR 3.17 (0.83-1.09); PROTHROMBIN TIME (PATIENT) 37.9 SEC (9.7-13.0)
[2018-02-07 18:34] LABS: ALBUMIN 2.4 g/dl (3.4-5.0); ALK PHOS 155 U/L (45-117); ANION GAP 8 MMOL/L (8-16); BILIRUBIN,TOTAL 0.4 mg/dL (0.2-1); BLOOD UREA NITROGEN 25 mg/dL (7-18); CALCIUM 7.5 mg/dL (8.5-10.1); CHLORIDE 112 mmol/L (98-107); CO2 23 mmol/L (21-32); CREATININE 1.4 mg/dL (0.55-1.3); GLUCOSE,RANDOM 93 mg/dL (74-106); LIPASE 110 U/L (73-393); POTASSIUM 3.7 mmol/L (3.5-5.1); SGOT/AST 19 U/L (15-37); SGPT/ALT 15 U/L (13-61); SODIUM 143 mmol/L (136-145)
--- NOTE | 2018-02-07 19:00 | PDOC ---
History of Present Illness - General Chief Complaint: Pain Stated Complaint: ABD PAIN Time Seen by Provider: 02/07/18 16:27 History Source: Patient, Care Provider Exam Limitations: No Limitations - History of Present Illness Initial Comments: 02/07/18 18:55 Patient is an 82M with history of CAD s/p stenting, afib on warfain, HTN, CHF, DM, breast cancer s/p mastectomy, CKD here today complaining of vomiting and shortness of breath for the past two days. Denies fevers chills. Denies blood in vomit. Patient does have history of right sided hernia but denies pain. Patient only complains of a pressure in his abdomen. Patient states that he has had to sleep more on his right side lately. Past History - Past Medical History Allergies/Adverse Reactions: Allergies Allergy/AdvReac Type Severity Reaction Status Date / Time levofloxacin [From Levaquin] Allergy Rash Verified 02/07/18 16:18 Home Medications: Ambulatory Orders Colchicine [Colcrys] 0.6 mg PO DAILY 03/27/15 Pantoprazole Sodium [Protonix] 40 mg PO DAILY 03/27/15 Sertraline HCl [Zoloft -] 50 mg PO DAILY 03/27/15 Simvastatin [Zocor -] 20 mg PO HS 03/27/15 Amlodipine Besylate [Norvasc -] 5 mg PO DAILY #30 tablet 09/27/15 Carvedilol [Coreg -] 25 mg PO BID #60 tablet 09/27/15 Furosemide [Lasix -] 40 mg PO DAILY #30 tablet 09/27/15 Polyethylene Glycol 3350 [Miralax 119 gm Btl -] 17 gm PO DAILY PRN #1 bottle Valsartan [Diovan] 160 mg PO DAILY #30 tablet 09/27/15 Warfarin Na [Coumadin -] 5 mg PO DAILY@1800 #30 tablet 09/27/15 Anemia: Yes Asthma: No Cancer: Yes (S/P RIGHT BREAST CANCER;MASTECTOMY 2003) Cardiac Disorders: Yes (H/O A FIB 1999,PPM 2004) CVA: No COPD: No CHF: No Dementia: No Diabetes: Yes GI Disorders: No Disorders: No HTN: Yes Hypercholesterolemia: Yes Liver Disease: No Seizures: No Thyroid Disease: No - Surgical History Abdominal Surgery: No Appendectomy: No Cardiac Surgery: Yes (PACEMAKER) Cholecystectomy: No Lung Surgery: No Neurologic Surgery: No Orthopedic Surgery: No - Immunization History Immunization Up to Date: Yes - Suicide/Smoking/Psychosocial Hx Smoking Status: No Smoking History: Never smoked Have you smoked in the past 12 months: No Number of Cigarettes Smoked Daily: 0 Cigars Per Day: 0 Hx Alcohol Use: No Drug/Substance Use Hx: No Substance Use Type: None Hx Substance Use Treatment: No Review of Systems - Review of Systems Comments:: 02/07/18 18:56 GENERAL/CONSTITUTIONAL: No fever or chills. No weakness. HEAD, EYES, EARS, NOSE AND THROAT: No change in vision. No sore throat. CARDIOVASCULAR: No chest pain +shortness of breath RESPIRATORY: No cough, wheezing, or hemoptysis. GASTROINTESTINAL: +nausea, +vomiting, no diarrhea or constipation. GENITOURINARY: No dysuria, frequency, or change in urination. MUSCULOSKELETAL: No joint or muscle swelling or pain. No neck or back pain. SKIN: No rash NEUROLOGIC: No headache, vertigo, loss of consciousness, or change in strength/ sensation. ALLERGIC/IMMUNOLOGIC: No hives or skin allergy. *Physical Exam - Vital Signs Last Vital Signs Temp Pulse Resp BP Pulse Ox 97.4 F L 80 22 H 150/93 98 02/07/18 16:07 02/07/18 17:30 02/07/18 17:30 02/07/18 17:30 02/07/18 18:18 - Physical Exam Comments: 02/07/18 18:57 GENERAL: Awake, alert, and fully oriented, laying on right side HEAD: No signs of trauma, normocephalic, atraumatic EYES: PERRLA, EOMI, sclera anicteric, conjunctiva clear ENT: Auricles normal inspection, hearing grossly normal, nares patent, oropharynx clear without exudates. Moist mucosa NECK: Normal ROM, supple, no lymphadenopathy, JVD, or masses LUNGS: No distress, speaks full sentences, coarse breath sounds on right HEART: Regular rate and rhythm, normal S1 and S2, no murmurs, rubs or gallops, peripheral pulses normal and equal bilaterally. ABDOMEN: Soft, nontender, normoactive bowel sounds. No guarding, no rebound. No masses EXTREMITIES: Normal inspection, Normal range of motion, no edema. No clubbing or cyanosis. NEUROLOGICAL: Cranial nerves II through XII grossly intact. Normal speech, normal gait, no focal sensorimotor deficits SKIN: Warm, Dry, normal turgor, no rashes or lesions noted. Moderate Sedation - Procedure Monitoring Vital Signs: Procedure Monitoring Vital Signs Temperature 97.4 F L 02/07/18 16:07 Pulse Rate 80 02/07/18 17:30 Respiratory Rate 22 H 02/07/18 17:30 Blood Pressure 150/93 02/07/18 17:30 O2 Sat by Pulse Oximetry (%) 98 02/07/18 18:18 ED Treatment Course - LABORATORY CBC & Chemistry Diagram: 02/07/18 17:55 02/07/18 17:55 - ADDITIONAL ORDERS Additional order review: Laboratory Results 02/07/18 02/07/18 17:55 17:55 PT with INR 37.90 H INR 3.17 H Sodium 143 Potassium 3.7 Chloride 112 H Carbon Dioxide 23 Anion Gap 8 BUN 25 H Creatinine 1.4 H Creat Clearance w eGFR 48.64 Random Glucose 93 Calcium 7.5 L Total Bilirubin 0.4 AST 19 ALT 15 Alkaline Phosphatase 155 H Creatine Kinase 53 Troponin I 0.02 Total Protein 6.0 L Albumin 2.4 L Lipase 110 02/07/18 17:55 RBC 3.84 L MCV 97.6 H MCHC 31.7 L RDW 17.7 H MPV 8.6 Neutrophils % 79.3 D Lymphocytes % 13.3 D Monocytes % 6.3 Eosinophils % 0.6 Basophils % 0.5 - RADIOLOGY Radiology Studies Ordered: Category Date Time Status ABDOMEN & PELVIS CT WITH CONTR [CT] Stat CT Scan 02/07/18 16:[address] WITH CONTRAST [CT] Stat CT Scan 02/07/18 18:41 Ordered CXRPORT [CHEST X-RAY PORTABLE*] [RAD] Stat Radiology 02/07/18 16:39 Taken - Medications Given in the ED: ED Medications Discontinued Medications Generic Name Dose Route Start Last Admin Trade Name Freq PRN Reason Stop Dose Admin Ondansetron HCl 4 mg 02/07/18 16:38 02/07/18 17:58 Zofran Injection IVPUSH 02/07/18 16:39 4 mg ONCE ONE Administration Medical Decision Making - Medical Decision Making 02/07/18 18:58 Patient is 82m with history of afib on coumadin, cad, htn, chf, dm, breast cancer here today with vomiting and shortness of breath. Vitals normal and stable. Patient is a limited historian, and it's difficult to link his symptoms of vomiting and shortness of breath. Given patient laying on right side, concern for an aspiration of fluid in the right lung. DDx includes, but is not limited to: sbo, pneumonia, chf, aspiration. EKG shows afib with rate of 78. No st elevations. ST depressions in V4-V6. T wave inversions in lateral leads. Normal axis. Normal QRS/QTc intervals. CXR shows effusion vs infiltrate on right. Will evaluate further with CT chest and a/p given vomiting and hernia. Cr 1.4. Trop <.05. CBC stable. Pending CTs. Signed out to night team. *DC/Admit/Observation/Transfer Diagnosis at time of Disposition: Vomiting - Discharge Dispostion Condition at time of disposition: Stable - Referrals - Patient Instructions - Post Discharge Activity
[2018-02-07 19:03] LABS: URINE APPEARANCE CLOUDY; URINE BILIRUBIN NEGATIVE (<2.0 mg/dL); URINE COLOR YELLOW; URINE GLUCOSE (UA) NEGATIVE (NEGATIVE); URINE KETONE NEGATIVE (NEGATIVE); URINE LEUK ESTERASE 3+ (NEGATIVE); URINE NITRITE NEGATIVE (NEGATIVE); URINE PROTEIN 2+ (NEGATIVE); URINE UROBILINOGEN NEGATIVE mg/dL (0.2-1.0)
[2018-02-07 19:10] LABS: URINE BACTERIA MODERATE /hpf (NONE SEEN); URINE MUCUS RARE; YEAST FEW
--- NOTE | 2018-02-07 19:57 | PDOC ---
*Physical Exam - Vital Signs Last Vital Signs Temp Pulse Resp BP Pulse Ox 97.4 F L 80 22 H 150/93 98 02/07/18 16:07 02/07/18 17:30 02/07/18 17:30 02/07/18 17:30 02/07/18 18:18 - Physical Exam Comments: 02/07/18 20:03 GENERAL: Awake, alert, and fully oriented, in no acute distress HEAD: No signs of trauma, normocephalic, atraumatic EYES: PERRLA, EOMI, sclera anicteric, conjunctiva clear ENT: Hearing grossly normal, nares patent, oropharynx clear without exudates. Moist mucosa NECK: Normal ROM, supple, no lymphadenopathy, JVD, or masses LUNGS: Diminished right sided lung sounds at base. No distress, speaks full sentences. HEART: Regular rate and rhythm, normal S1 and S2, no murmurs, rubs or gallops, peripheral pulses normal and equal bilaterally. ABDOMEN: + Epigastric ttp. Soft, nontender, normoactive bowel sounds. No guarding, no rebound. No masses. Neg CVA ttp. EXTREMITIES : Normal inspection, Normal range of motion, no edema. No clubbing or cyanosis. NEUROLOGICAL: Cranial nerves II through XII grossly intact. Normal speech, normal gait, no focal sensorimotor deficits SKIN: Warm, Dry, normal turgor, no rashes or lesions noted ED Treatment Course - LABORATORY CBC & Chemistry Diagram: 02/07/18 17:55 02/07/18 17:55 - ADDITIONAL ORDERS Additional order review: Laboratory Results 02/07/18 02/07/18 02/07/18 18:54 17:55 17:55 PT with INR 37.90 H INR 3.17 H Sodium 143 Potassium 3.7 Chloride 112 H Carbon Dioxide 23 Anion Gap 8 BUN 25 H Creatinine 1.4 H Creat Clearance w eGFR 48.64 Random Glucose 93 Calcium 7.5 L Total Bilirubin 0.4 AST 19 ALT 15 Alkaline Phosphatase 155 H Creatine Kinase 53 Troponin I 0.02 Total Protein 6.0 L Albumin 2.4 L Lipase 110 Urine Color Yellow Urine Appearance Cloudy Urine pH 5.0 D Ur Specific [place] 1.006 L Urine Protein 2+ H Urine Glucose (UA) Negative Urine Ketones Negative Urine Blood 2+ H Urine Nitrite Negative Urine Bilirubin Negative Urine Urobilinogen Negative Ur Leukocyte Esterase 3+ H Urine WBC (Auto) 776 Urine RBC (Auto) 13 Urine Bacteria Moderate Urine Mucus Rare Urine Yeast Few 02/07/18 17:55 RBC 3.84 L MCV 97.6 H MCHC 31.7 L RDW 17.7 H MPV 8.6 Neutrophils % 79.3 D Lymphocytes % 13.3 D Monocytes % 6.3 Eosinophils % 0.6 Basophils % 0.5 - Medications Given in the ED: ED Medications Discontinued Medications Generic Name Dose Route Start Last Admin Trade Name Kendra PRN Reason Stop Dose Admin Ondansetron HCl 4 mg 02/07/18 16:38 02/07/18 17:58 Zofran Injection IVPUSH 02/07/18 16:39 4 mg ONCE ONE Administration Medical Decision Making - Medical Decision Making 02/07/18 19:53 82 yo M with h/o HTN, CAD, CHF, DM, A-fib on Coumadin, CAD, who p/w worsening vomiting and SOB. Worsening SOB, when laying on left side. Received sign out from Dr. Mendosa. CXR with worsening R sided plerual effusion compared to 2017. O2 90% RA, vitals otherwise wnl. Trop neg, CBC, CMP Unremarkable. EKG shows afib with rate of 78. STD V4-V6. TWI lateral leads. Normal axis and interval duration. Pending CT AP, and CT CHEST. ED Course: UA: 2+ blood, 3 + LE, 776 wbc, RBC 13 02/07/18 20:52 CT CHEST: Very large/large Right pleural effusion. Plan to admit to med/surg Pleural effusion 02/07/18 21:57 BNP: 44,403 02/07/18 22:17 Pt. endorsed to medicine service. Admitted to med/surg. Ifudu. *DC/Admit/Observation/Transfer Diagnosis at time of Disposition: Vomiting, Pleural effusion, right - Discharge Dispostion Condition at time of disposition: Stable Decision to Admit order: Yes - Referrals - Patient Instructions - Post Discharge Activity
[2018-02-07 21:53] LABS: N-TERMINAL BNP 44440.3 pg/ml (5-450)
--- NOTE | 2018-02-08 01:04 | PN ---
Teaching Attending Note Name of Resident: Farrukh Lisa ATTENDING PHYSICIAN STATEMENT I saw and evaluated the patient. I reviewed the resident's note and discussed the case with the resident. I agree with the resident's findings and plan as documented. SUBJECTIVE: Patient is an 82 year old man with a PMH of CAD s/p PCI stent, AFib on Warfarin , HTN, wheel chair use, CHF, DM, hx of breast CA s/p mastectomy, and ?CKD who presents to the ER with nausea, vomiting, and shortness of breath for several days. The patient denies abdominal pain but reports pressure with palpation. The patient reports relief with laying on his right side. The patient has a hx of a right-sided hernia. He dneis any chest pain, fever/chills, cough, diarrhea , or dysuria. He has LE edema but is currently improved and also lower abdominal bloating. His CAKE WRINGER says he usually sleeps in an incline, and has been asking her to reposition him to the R side recently. OBJECTIVE: Alert Vital Signs Period Temp Pulse Resp BP Sys/Soria Pulse Ox Last 24 Hr 97.4 F 80-82 20-22 150-150/93-93 90-98 HEENT: No Jaundice, eye redness or discharge, PERRLA, EOMI. Normocephalic, atraumatic. External ears are normal and hearing is grossly intact. No nasal discharge. Neck: Supple, nontender. No palpable adenopathy or thyromegaly. No JVD Chest: Good effort. Right mastectomy. Diminished breath sounds in lung bases with R>L. Heart: Irregularly irregular. No S3, rub or murmur Abdomen: Not distended, soft, nontender and no HSM. Reducible right abdominal ventral hernia; No rebound or guarding. Normoactive bowel sounds. Ext: Peripheral pulses intact. No leg edema. Flank edema. Skin: Warm and dry. No petechiae, rash or ecchymosis. Neuro: Alert. Oriented x3. CN 2-12 grossly intact. Sensation grossly intact in all four extremities and DTR are symmetric. Home Medications Medication Instructions Recorded Colchicine [Colcrys] 0.6 mg PO DAILY 03/27/15 Pantoprazole Sodium [Protonix] 40 mg PO DAILY 03/27/15 Sertraline HCl [Zoloft -] 50 mg PO DAILY 03/27/15 Simvastatin [Zocor -] 20 mg PO HS 03/27/15 Amlodipine Besylate [Norvasc -] 5 mg PO DAILY #30 tablet 09/27/15 Carvedilol [Coreg -] 25 mg PO BID #60 tablet 09/27/15 Furosemide [Lasix -] 40 mg PO DAILY #30 tablet 09/27/15 Polyethylene Glycol 3350 [Miralax 17 gm PO DAILY PRN #1 bottle 09/27/15 119 gm Btl -] Valsartan [Diovan] 160 mg PO DAILY #30 tablet 09/27/15 Warfarin Na [Coumadin -] 5 mg PO DAILY@1800 #30 tablet 09/27/15 Abnormal Lab Results 02/07/18 02/07/18 02/07/18 17:55 17:55 17:55 RBC 3.84 L MCV 97.6 H MCHC 31.7 L RDW 17.7 H PT with INR 37.90 H INR 3.17 H Chloride 112 H BUN 25 H Creatinine 1.4 H Calcium 7.5 L Alkaline Phosphatase 155 H B-Natriuretic Peptide 38996.3 H Total Protein 6.0 L Albumin 2.4 L Ur Specific [place] Urine Protein Urine Blood Ur Leukocyte Esterase 02/07/18 18:54 RBC MCV MCHC RDW PT with INR INR Chloride BUN Creatinine Calcium Alkaline Phosphatase B-Natriuretic Peptide Total Protein Albumin Ur Specific [place] 1.006 L Urine Protein 2+ H Urine Blood 2+ H Ur Leukocyte Esterase 3+ H ASSESSMENT AND PLAN: 1. Right pleural effusion/SOB - Most recent ECHO showed moderately reduced LV systolic function. CHF may be the primary cause of the bilateral effusion (R>L) , but with history of breast cancer, must exclude malignant effusion and/or hemothorax in view of high INR. Will hold coumadin, get a diagnostic thoracentesis once INR is in the acceptable range and consult cardiology. EKG shows Afib with t wave inversion in V4-6. Troponin is normal. Will repeat EKG. He has flank edema but does not have pedal edema - low albumin and proteinuria suggest concomitant nephrotic syndrome. Will treat with IV lasix, monitor daily weight, K and Mg and restrict dietary salt intake. Consult cardiology (and repeat ECHO?). Consult PT. Will treat asymptomatic UTI with Ceftriaxone 1 gm q 24 hours pending urine culture report. 2. Hypoalbuminemia - Possibly due to combined effects of proteinuria, malnutrition and inflammation associated with comorbid chronic conditions. Will ensure adequate dietary protein intake and also consult helicopter pilot instructor. 3. Diet controlled DM - Says he stopped his oral diabetes medication 3 years ago. Will implement sliding scale insulin regimen. Provide comprehensive diabetes care with patient teaching and counseling about the importance of euglycemia, eye care and foot care. 4. CKD? - Needs nephrologic workup for nephrosis - it may not necessarily be diabetic nephropathy. Will consult nephrology and avoid nephrotoxic agents such as NSAIDS, aminoglycosides, contrast dyes and certain Alternative medicine products. 5. DVT prophylaxis - On coumadin 6. Advance directives - Full code
--- NOTE | 2018-02-08 01:24 | HP ---
CHIEF COMPLAINT: PCP: Garret Ahn HISTORY OF PRESENT ILLNESS: 82 yo M PMH CAD s/p PCI stent, s/p PPM (2004), AFib on Warfarin, HTN, HLD, Anemia, CHF, DM, hx of breast CA s/p R mastectomy (2003), gout, CKD, R sided hernia p/w n/v, bloating, and SOB x2wks but acutely worsening x2d. vomit is NBNB. The patient denies abdominal pain but reports pressure with palpation/ bloating. The patient reports relief with laying on his right side. Pt endorses some LE edema and says he thinks he has been eating a little more salt in the past few weeks but has been compliant w/ his meds and has otherwise been in good health w/o complaints or obvious inciting factors. Per aid pt usually sleeps in an incline, and has been asking her to reposition him to the R side recently. Denies any cp, fever/chills, cough, diarrhea, blood in stools, urinary sxs, weight loss, night sweats, recent illness ER course was notable for: (1)Zofran (2)3+ leuk est, wbc 776, moderate bacteria. BNP 13818. INR 3.17 (3)CXR: R side opacification. CT chest: Very large Right pleural effusion, small L pleural effusion. Focal opacity, scarring? R apex. b/l flank SQ edema. CT A/P R anterior pelvic wall hernia w/ segment R colon small ascites. small ascites in RUQ but improved from 03/2015 (4)EKG shows afib with rate of 78. No st elevations. ST depressions in V4-V6. T wave inversions in lateral leads. Normal axis. Normal QRS intervals. QTc 476 Recent Travel: pt denies PAST MEDICAL HISTORY: echo 09/2015: severe pulm HTN, RV > 60, severe apical wall hypokinesis, LVSFN mod reduced, mod global hypokinesis of LV PAST SURGICAL HISTORY: R mastectomy with LND (negative) 2003 PPM 2005 L hip arthroplasty Social History: Smoking: pt denies Alcohol: pt denies Drugs: pt denies Lives at home w/ . mostly wheelchair bound. has Home health aide Family History: mother age 82, unk COD father age 86, unk COD Allergies levofloxacin [From Levaquin] Allergy (Verified 02/07/18 16:18) Rash HOME MEDICATIONS: Home Medications Medication Instructions Recorded Colchicine [Colcrys] 0.6 mg PO DAILY 03/27/15 Pantoprazole Sodium [Protonix] 40 mg PO DAILY 03/27/15 Sertraline HCl [Zoloft -] 50 mg PO DAILY 03/27/15 Simvastatin [Zocor -] 20 mg PO HS 03/27/15 Amlodipine Besylate [Norvasc -] 5 mg PO DAILY #30 tablet 09/27/15 Carvedilol [Coreg -] 25 mg PO BID #60 tablet 09/27/15 Furosemide [Lasix -] 40 mg PO DAILY #30 tablet 09/27/15 Polyethylene Glycol 3350 [Miralax 17 gm PO DAILY PRN #1 bottle 09/27/15 119 gm Btl -] Valsartan [Diovan] 160 mg PO DAILY #30 tablet 09/27/15 Warfarin Na [Coumadin -] 5 mg PO DAILY@1800 #30 tablet 09/27/15 REVIEW OF SYSTEMS as per hpi PHYSICAL EXAMINATION Vital Signs - 24 hr 02/07/18 02/07/18 02/07/18 16:07 17:30 18:18 Temperature 97.4 F L Pulse Rate 82 Pulse Rate [ 80 Apical] Respiratory 20 22 H Rate Blood Pressure 150/93 Blood Pressure 150/93 [Right Arm] O2 Sat by Pulse 90 L 97 98 Oximetry (%) GENERAL: AOX3 NAD. lying on R side HEAD: NCAT EYES: extraocular movements intact, sclera anicteric, conjunctiva clear. No lid lag. EARS, NOSE, THROAT: nares patent, oropharynx clear without exudates. Moist mucous membranes. NECK: Normal range of motion, supple without lymphadenopathy, JVD, or masses. LUNGS: diminished breath sounds R lung. L lung CTA. HEART: irregular , normal S1 and S2 without murmur, rub or gallop. ABDOMEN: Soft, NT distended and edematous, , normoactive bowel sounds, no guarding, no rebound, no masses. +ventral hernia MUSCULOSKELETAL: Normal range of motion at all joints. No bony deformities or tenderness. +flank SQ edema UPPER EXTREMITIES: 2+ pulses, warm, well-perfused. No cyanosis. No clubbing. No peripheral edema. LOWER EXTREMITIES: 2+ pulses, warm, well-perfused. No calf tenderness. No peripheral edema. NEUROLOGICAL: Cranial nerves II-XII intact. Normal speech. PSYCHIATRIC: Cooperative. Good eye contact. Appropriate mood and affect. SKIN: Warm, dry, normal turgor, no rashes or lesions noted, normal capillary refill. Laboratory Results - last 24 hr 02/07/18 02/07/18 02/07/18 17:55 17:55 17:55 WBC 6.2 RBC 3.84 L Hgb 11.9 Hct 37.5 D MCV 97.6 H MCH 31.0 MCHC 31.7 L RDW 17.7 H Plt Count 186 MPV 8.6 Absolute Neuts (auto) 4.9 Neutrophils % 79.3 D Lymphocytes % 13.3 D Monocytes % 6.3 Eosinophils % 0.6 Basophils % 0.5 Nucleated RBC % 0 PT with INR 37.90 H INR 3.17 H Sodium 143 Potassium 3.7 Chloride 112 H Carbon Dioxide 23 Anion Gap 8 BUN 25 H Creatinine 1.4 H Creat Clearance w eGFR 48.64 Random Glucose 93 Calcium 7.5 L Total Bilirubin 0.4 AST 19 ALT 15 Alkaline Phosphatase 155 H Creatine Kinase 53 Troponin I 0.02 B-Natriuretic Peptide 06399.3 H Total Protein 6.0 L Albumin 2.4 L Lipase 110 Urine Color Urine Appearance Urine pH Ur Specific [place] Urine Protein Urine Glucose (UA) Urine Ketones Urine Blood Urine Nitrite Urine Bilirubin Urine Urobilinogen Ur Leukocyte Esterase Urine WBC (Auto) Urine RBC (Auto) Urine Bacteria Urine Mucus Urine Yeast 02/07/18 18:54 WBC RBC Hgb Hct MCV MCH MCHC RDW Plt Count MPV Absolute Neuts (auto) Neutrophils % Lymphocytes % Monocytes % Eosinophils % Basophils % Nucleated RBC % PT with INR INR Sodium Potassium Chloride Carbon Dioxide Anion Gap BUN Creatinine Creat Clearance w eGFR Random Glucose Calcium Total Bilirubin AST ALT Alkaline Phosphatase Creatine Kinase Troponin I B-Natriuretic Peptide Total Protein Albumin Lipase Urine Color Yellow Urine Appearance Cloudy Urine pH 5.0 D Ur Specific [place] 1.006 L Urine Protein 2+ H Urine Glucose (UA) Negative Urine Ketones Negative Urine Blood 2+ H Urine Nitrite Negative Urine Bilirubin Negative Urine Urobilinogen Negative Ur Leukocyte Esterase 3+ H Urine WBC (Auto) 776 Urine RBC (Auto) 13 Urine Bacteria Moderate Urine Mucus Rare Urine Yeast Few ASSESSMENT/PLAN: 82 yo M PMH CAD s/p PCI stent, s/p PPM (2004), AFib on Warfarin, HTN, CHF, DM, hx of breast CA s/p R mastectomy (2003), gout, CKD p/w n/v and SOB x2wks but acutely worsening x2d. R pleural effusion - CXR: R side opacification. CT chest: Very large Right pleural effusion, small L pleural effusion. Focal opacity, scarring? R apex. b/ l flank SQ edema. unlikely due to CHF given unilateral effusion rather than typical b/l. possibly neoplastic given pt PMH of R breast CA and unilateral effusion. hold coumadin for IR procedure until INR at safe levels monitor INR IR consult for therapeutic and diagnostic thoracentisis r/o ACS - EKG shows afib with rate of 78. No st elevations. ST depressions in V4 -V6. T wave inversions in lateral leads. Normal axis. Normal QRS intervals. QTc 476 trop neg x1 rpt trop and EKG cardio consult for possible echo? echo 09/2015: severe pulm HTN, RV > 60, severe apical wall hypokinesis, LVSFN mod reduced, mod global hypokinesis of LV UTI - 3+ leuk est, wbc 776, moderate bacteria. CTX 1g qd IV monitor Cr Afib - High INR 3.17. HR ctl hold coumadin for potential IR guided thoracentisis of R pleural effusion coreg MINOO? on CKD - Cr 1.4 may be pt baseline, has had worse Cr in prior visits. Prerenal? unlikely post renal given CT findings. encourage PO liquids CT A/P - Mild bilateral renal atrophy. There is no hydronephrosis Bilateral renal cortical cysts. A stable 2 cm left renal upper pole cortical mildly hyperdense focus is seen which is also unchanged in comparison to a more remote CT study of 01/26/2013 probably representing a complex cyst. avoid nephrotoxic agents monitor Cr hold lasix, pt may be intravascular depleted CHF home coreg, diovan hold lasix, pt may be intravascular depleted and does not clinically appear to be in CHF exacerbation HTN home dose norvasc CAD/HLD Lipitor Gout home dose colchicine DM BGM ACHS ISS FEN no IVF replete prn renal diet, low sodium, low fat, diabetic ctl ppx SCDs, hold coumadin for potential IR guided thoracentisis protonix Full code Dispo Med/surg Visit type - Emergency Visit Emergency Visit: Yes ED Registration Date: 02/08/18 Care time: The patient presented to the Emergency Department on the above date and was hospitalized for further evaluation of their emergent condition. - New Patient This patient is new to me today: Yes Date on this admission: 02/08/18 - Critical Care Critical Care patient: No
[2018-02-08] MEDS ORDERED: CEFTRIAXONE 1 GM in DEXTROSE 5%-WATER - 50 ML IVPB ONE (01:36)
[2018-02-08] MEDS ORDERED: CEFTRIAXONE 1 GM/50 ML BAG ONE (01:58)
[2018-02-08] MEDS: INSULIN SLIDING SCALE (NOVOLOG) 1 VIAL SQ SCH ×4 (06:02→21:35)
[2018-02-08 06:36] VITALS: BMI 25.7
[2018-02-08 09:01] LABS: BASO % 0.5 % (0-2.0); EOS % 0.7 % (0-4.5); HEMATOCRIT 36.7 % (35.4-49); HEMOGLOBIN 11.5 GM/dL (11.7-16.9); LYMPH % 19.2 % (8-40); MCH 30.6 pg (25.7-33.7); MCHC 31.3 g/dl (32.0-35.9); MEAN CELL VOLUME 97.8 fl (80-96); MEAN PLT VOLUME 8.5 fl (7.5-11.1); MONO % 9.4 % (3.8-10.2); NEUT % 70.2 % (42.8-82.8); PLATELET COUNT 169 K/MM3 (134-434); RBC 3.75 M/mm3 (4.00-5.60); RDW 17.5 % (11.9-15.9); WHITE BLOOD COUNT 5.8 K/mm3 (4.0-10.0)
[2018-02-08] MEDS ORDERED: INSULIN (NOVOLOG) ASPART 100 UNITS/ML 10ML VIAL ONE (09:12)
[2018-02-08 09:28] LABS: INR 3.16 (0.83-1.09); PROTHROMBIN TIME (PATIENT) 37.7 SEC (9.7-13.0)
[2018-02-08 09:30] LABS: ACTIVATED PTT 45.7 SECONDS (25.2-36.5)
[2018-02-08] MEDS: amLODIPine BESYLATE 5 MG TABLET (FP) PO SCH (09:48)
[2018-02-08] MEDS: PANTOPRAZOLE 40 MG TABLET (FP) PO SCH (09:48)
[2018-02-08] MEDS: COLCHICINE 0.6 MG TABLET (FP) PO SCH (09:48)
[2018-02-08] MEDS: SERTRALINE HCL 50 MG TABLET (FP) PO SCH (09:48)
[2018-02-08] MEDS: CARVEDILOL 25 MG TABLET (FP) PO SCH ×2 (09:48→21:35)
[2018-02-08 09:54] LABS: ALBUMIN 2.4 g/dl (3.4-5.0); ALK PHOS 133 U/L (45-117); ANION GAP 9 MMOL/L (8-16); BILIRUBIN,TOTAL 0.4 mg/dL (0.2-1); BLOOD UREA NITROGEN 27 mg/dL (7-18); CALCIUM 7.3 mg/dL (8.5-10.1); CHLORIDE 112 mmol/L (98-107); CO2 21 mmol/L (21-32); CREATININE 1.6 mg/dL (0.55-1.3); GLUCOSE,RANDOM 68 mg/dL (74-106); MAGNESIUM 1.3 mg/dL (1.8-2.4); PHOSPHOROUS 3.1 mg/dL (2.5-4.9); POTASSIUM 3.8 mmol/L (3.5-5.1); SGOT/AST 14 U/L (15-37); SGPT/ALT 13 U/L (13-61); SODIUM 142 mmol/L (136-145); TOT PROT 5.5 g/dl (6.4-8.2)
[2018-02-08] MEDS ORDERED: VALSARTAN 160 MG TABLET (UD) PO SCH (10:00)
--- NOTE | 2018-02-08 13:04 | PN ---
Progress Note (short form) - Note Progress Note: Events noted Pt known to me from previous admission He has recurrent right pleural effusion-- had thoracentesis done 2016 -- no malignant cells seen Today he is comfortable No distress No chest pain Lying down Vital Signs - 24 hr 02/07/18 02/07/18 02/07/18 16:07 17:30 18:18 Temperature 97.4 F L Pulse Rate 82 Pulse Rate [ 80 Apical] Respiratory 20 22 H Rate Blood Pressure 150/93 Blood Pressure 150/93 [Right Arm] O2 Sat by Pulse 90 L 97 98 Oximetry (%) 02/08/18 02/08/18 02/08/18 02:41 03:20 03:32 Temperature 98.1 F Pulse Rate 86 Pulse Rate [ 76 Apical] Respiratory 18 20 Rate Blood Pressure 139/88 Blood Pressure 146/80 [Right Arm] O2 Sat by Pulse 98 95 Oximetry (%) 02/08/18 09:25 Temperature 97.8 F Pulse Rate 98 H Pulse Rate [ Apical] Respiratory 18 Rate Blood Pressure 127/84 Blood Pressure [Right Arm] O2 Sat by Pulse Oximetry (%) Current Medications Generic Name Dose Route Start Last Admin Trade Name Freq PRN Reason Stop Dose Admin Amlodipine Besylate 5 mg 02/08/18 10:00 02/08/18 09:48 Norvasc - PO 5 mg DAILY ALEX Administration Atorvastatin Calcium 10 mg 02/08/18 22:00 Lipitor - PO HS ALEX Carvedilol 25 mg 02/08/18 10:00 02/08/18 09:48 Coreg - PO 25 mg BID ALEX Administration Colchicine 0.6 mg 02/08/18 10:00 02/08/18 09:48 Colcrys - PO 0.6 mg DAILY ALEX Administration Ceftriaxone Sodium 1,000 mg/ 50 mls @ 100 mls/hr 02/09/18 08:00 Dextrose IVPB DAILY@0800 [facility] Insulin Aspart 1 vial 02/08/18 07:00 02/08/18 11:34 Novolog Vial Sliding Scale - SQ Not Given ACHS [facility] Protocol Pantoprazole Sodium 40 mg 02/08/18 10:00 02/08/18 09:48 Protonix - PO 40 mg DAILY ALEX Administration Sertraline HCl 50 mg 02/08/18 10:00 02/08/18 09:48 Zoloft - PO 50 mg DAILY ALEX Administration Valsartan 160 mg 02/08/18 10:00 02/08/18 09:48 Diovan - PO 160 mg DAILY ALEX Administration Laboratory Results - last 24 hr 02/07/18 02/07/18 02/07/18 17:55 17:55 17:55 WBC 6.2 RBC 3.84 L Hgb 11.9 Hct 37.5 D MCV 97.6 H MCH 31.0 MCHC 31.7 L RDW 17.7 H Plt Count 186 MPV 8.6 Absolute Neuts (auto) 4.9 Neutrophils % 79.3 D Lymphocytes % 13.3 D Monocytes % 6.3 Eosinophils % 0.6 Basophils % 0.5 Nucleated RBC % 0 PT with INR 37.90 H INR 3.17 H PTT (Actin FS) Sodium 143 Potassium 3.7 Chloride 112 H Carbon Dioxide 23 Anion Gap 8 BUN 25 H Creatinine 1.4 H Creat Clearance w eGFR 48.64 POC Glucometer Random Glucose 93 Calcium 7.5 L Phosphorus Magnesium Total Bilirubin 0.4 AST 19 ALT 15 Alkaline Phosphatase 155 H Creatine Kinase 53 Troponin I 0.02 B-Natriuretic Peptide 62065.3 H Total Protein 6.0 L Albumin 2.4 L Lipase 110 Urine Color Urine Appearance Urine pH Ur Specific [place] Urine Protein Urine Glucose (UA) Urine Ketones Urine Blood Urine Nitrite Urine Bilirubin Urine Urobilinogen Ur Leukocyte Esterase Urine WBC (Auto) Urine RBC (Auto) Urine Bacteria Urine Mucus Urine Yeast Blood Type Antibody Screen 02/07/18 02/08/18 02/08/18 18:54 02:50 05:33 WBC RBC Hgb Hct MCV MCH MCHC RDW Plt Count MPV Absolute Neuts (auto) Neutrophils % Lymphocytes % Monocytes % Eosinophils % Basophils % Nucleated RBC % PT with INR INR PTT (Actin FS) Sodium Potassium Chloride Carbon Dioxide Anion Gap BUN Creatinine Creat Clearance w eGFR POC Glucometer 55 Random Glucose Calcium Phosphorus Magnesium Total Bilirubin AST ALT Alkaline Phosphatase Creatine Kinase Troponin I 0.02 B-Natriuretic Peptide Total Protein Albumin Lipase Urine Color Yellow Urine Appearance Cloudy Urine pH 5.0 D Ur Specific [place] 1.006 L Urine Protein 2+ H Urine Glucose (UA) Negative Urine Ketones Negative Urine Blood 2+ H Urine Nitrite Negative Urine Bilirubin Negative Urine Urobilinogen Negative Ur Leukocyte Esterase 3+ H Urine WBC (Auto) 776 Urine RBC (Auto) 13 Urine Bacteria Moderate Urine Mucus Rare Urine Yeast Few Blood Type Antibody Screen 02/08/18 02/08/18 02/08/18 07:07 08:43 08:43 WBC 5.8 RBC 3.75 L Hgb 11.5 L Hct 36.7 MCV 97.8 H MCH 30.6 MCHC 31.3 L RDW 17.5 H Plt Count 169 MPV 8.5 Absolute Neuts (auto) 4.0 Neutrophils % 70.2 Lymphocytes % 19.2 D Monocytes % 9.4 Eosinophils % 0.7 Basophils % 0.5 Nucleated RBC % 0 PT with INR 37.70 H INR 3.16 H PTT (Actin FS) 45.7 H Sodium Potassium Chloride Carbon Dioxide Anion Gap BUN Creatinine Creat Clearance w eGFR POC Glucometer 105 Random Glucose Calcium Phosphorus Magnesium Total Bilirubin AST ALT Alkaline Phosphatase Creatine Kinase Troponin I B-Natriuretic Peptide Total Protein Albumin Lipase Urine Color Urine Appearance Urine pH Ur Specific [place] Urine Protein Urine Glucose (UA) Urine Ketones Urine Blood Urine Nitrite Urine Bilirubin Urine Urobilinogen Ur Leukocyte Esterase Urine WBC (Auto) Urine RBC (Auto) Urine Bacteria Urine Mucus Urine Yeast Blood Type Antibody Screen 02/08/18 02/08/18 02/08/18 08:43 08:43 11:33 WBC RBC Hgb Hct MCV MCH MCHC RDW Plt Count MPV Absolute Neuts (auto) Neutrophils % Lymphocytes % Monocytes % Eosinophils % Basophils % Nucleated RBC % PT with INR INR PTT (Actin FS) Sodium 142 Potassium 3.8 Chloride 112 H Carbon Dioxide 21 Anion Gap 9 BUN 27 H Creatinine 1.6 H Creat Clearance w eGFR 41.69 POC Glucometer 65 Random Glucose 68 L Calcium 7.3 L Phosphorus 3.1 Magnesium 1.3 L Total Bilirubin 0.4 AST 14 L ALT 13 Alkaline Phosphatase 133 H Creatine Kinase Troponin I B-Natriuretic Peptide Total Protein 5.5 L Albumin 2.4 L Lipase Urine Color Urine Appearance Urine pH Ur Specific [place] Urine Protein Urine Glucose (UA) Urine Ketones Urine Blood Urine Nitrite Urine Bilirubin Urine Urobilinogen Ur Leukocyte Esterase Urine WBC (Auto) Urine RBC (Auto) Urine Bacteria Urine Mucus Urine Yeast Blood Type B POSITIVE Antibody Screen Negative S1 S2 Irregular Lungs decreased breath sounds right ABd- soft,NT ND. BS+, ventral hernia+ no edema PLAN Pleural effusion -- recurrent -- unsure malignant --INR elevated- will hold off Coumadin and have INR decrease without reversing it, in anticipation for thoracentesis -- Pulmonary eval Afib-- rate is controlled -- spoke with Cardiology -- coumadin on hold UTI -- on IV Ceftriaxone -- urine cultures pending -- check a bladder scan if pt has urinary retention -as CT shows bladder to have 600ml urine, may need to place anne if retention Acute on CKD -- creatinine worsening -- Lasix on hold -- dc Valsartan spoke with daughter Piper manzanares Problem List - Problems (1) Pleural effusion, right Code(s): J90 - PLEURAL EFFUSION, NOT ELSEWHERE CLASSIFIED (2) Acute on chronic renal failure Code(s): N17.9 - ACUTE KIDNEY FAILURE, UNSPECIFIED; N18.9 - CHRONIC KIDNEY DISEASE, UNSPECIFIED (3) Afib Code(s): I48.91 - UNSPECIFIED ATRIAL FIBRILLATION Qualifiers: Atrial fibrillation type: chronic Qualified Code(s): I48.2 - Chronic atrial fibrillation (4) Anemia Code(s): D64.9 - ANEMIA, UNSPECIFIED Qualifiers: Anemia type: unspecified type Qualified Code(s): D64.9 - Anemia, unspecified (5) Ascites Code(s): R18.8 - OTHER ASCITES Qualifiers: Ascites type: other type Qualified Code(s): R18.8 - Other ascites (6) Breast cancer in male Code(s): C50.929 - MALIGNANT NEOPLASM OF UNSP SITE OF UNSPECIFIED MALE BREAST
[2018-02-08] MEDS ORDERED: MAGNESIUM SULF 50% (8.12 MEQ/2 ML-1 GM VIAL) IVPB ONE (13:15)
--- NOTE | 2018-02-08 13:26 | CON.CARD ---
Consult Consult Specialty:: Cardiology Referred by:: Adán Martinez MD Reason for Consultation:: Cardiac evaluation - History of Present Illness Chief Complaint: SOB History of Present Illness: Patient is an 82 year old male with underlying history of CAD, s/p PCI/stent, angina pectoris, systolic LV dysfunction with chronic class 2 NYHA classification LV failure, persistent AF [id number] score of 6 on chronic anticoagulation with Coumadin, sinus node dysfunction, AV block, s/p PPM, advanced pulmonary HTN, mitral valve regurgitation, tricuspid valve regurgitation, HTN/HCVD, DM, hypercholesterolemia, breast CA post mastectomy post chemotherapy, CKD and pleural effusion who presents with worsening shortness of breath for past 2 weeks. CXR reveals right side opacification. CT chest reveals large right pleural effusion, small left pleural effusion, focal opacity and scarring. He denies paroxysmal nocturnal dyspnea or orthopnea. He denies fever or chills. He denies headache or lightheadedness. He denies nausea or abdominal pain, but had an episode of vomiting. - History Source History Provided By: Patient, Medical Record Limitations to Obtaining History: No Limitations - Past Medical History Cardio/Vascular: Yes: AFIB, CAD, CHF, HTN, Hyperlipdemia, Mitral Insufficiency, Pulmonary Hypertension, Other (LV systolic dysfunction with class 2 NYHA classification LV failure) Renal/: Yes: Renal Inusuff Heme/Onc: Yes: Cancer (Breast CA s/p mastectomy and chemotherapy) Endocrine: Yes: Diabetes Mellitus - Past Surgical History Past Surgical History: Yes: Mastectomy, Permanent Pacemaker - Alcohol/Substance Use Hx Alcohol Use: No - Smoking History Smoking history: Never smoked Have you smoked in the past 12 months: No Aproximately how many cigarettes per day: 0 Home Medications - Allergies Allergies/Adverse Reactions: Allergies Allergy/AdvReac Type Severity Reaction Status Date / Time levofloxacin [From Levaquin] Allergy Rash Verified 02/07/18 16:18 - Home Medications Home Medications: Ambulatory Orders Colchicine [Colcrys] 0.6 mg PO DAILY 03/27/15 Pantoprazole Sodium [Protonix] 40 mg PO DAILY 03/27/15 Sertraline HCl [Zoloft -] 50 mg PO DAILY 03/27/15 Simvastatin [Zocor -] 20 mg PO HS 03/27/15 Amlodipine Besylate [Norvasc -] 5 mg PO DAILY #30 tablet 09/27/15 Carvedilol [Coreg -] 25 mg PO BID #60 tablet 09/27/15 Furosemide [Lasix -] 40 mg PO DAILY #30 tablet 09/27/15 Polyethylene Glycol 3350 [Miralax 119 gm Btl -] 17 gm PO DAILY PRN #1 bottle Valsartan [Diovan] 160 mg PO DAILY #30 tablet 09/27/15 Warfarin Na [Coumadin -] 5 mg PO DAILY@1800 #30 tablet 09/27/15 Family Disease History - Family Disease History Other Family History: CAD Review of Systems - Review of Systems Constitutional: denies: Chills, Fever Cardiovascular: reports: Shortness of Breath. denies: Chest Pain, Palpitations Respiratory: reports: SOB, SOB on Exertion. denies: Cough, Hemoptysis, Orthopnea, PND Gastrointestinal: reports: Vomiting. denies: Abdominal Pain, Constipation, Diarrhea, Melena, Nausea, Rectal Bleeding Genitourinary: denies: Dysuria, Hematuria Neurological: denies: Dizziness, Headache, Seizure, Syncope Vital Signs: Vital Signs Temperature 97.8 F 02/08/18 09:25 Pulse Rate 98 H 02/08/18 09:25 Respiratory Rate 18 02/08/18 09:25 Blood Pressure 127/84 02/08/18 09:25 O2 Sat by Pulse Oximetry (%) 95 02/08/18 03:32 Eyes: Yes: PERRL HENT: Yes: Atraumatic Neck: Yes: Supple Respiratory: Yes: Diminished Gastrointestinal: Yes: Normal Bowel Sounds, Soft. No: Tenderness Cardiovascular: Yes: Pulse Irregular JVD: No Carotid Bruit: No PMI: Non-Displaced Heart Sounds: Yes: S1, S2 Murmur: Yes: Systolic Murmur, Grade 2 (apical systolic murmur) Edema: No - Other Data Labs, Other Data: CBC, BMP 02/08/18 08:43 02/08/18 08:43 INR, PTT INR 3.16 (0.83-1.09) H 02/08/18 08:43 Troponin, BNP 02/07/18 02/08/18 17:55 02:50 Troponin I 0.02 0.02 B-Natriuretic Peptide 71360.3 H Laboratory Results - last 24 hr 02/07/18 02/07/18 02/07/18 17:55 17:55 17:55 WBC 6.2 RBC 3.84 L Hgb 11.9 Hct 37.5 D MCV 97.6 H MCH 31.0 MCHC 31.7 L RDW 17.7 H Plt Count 186 MPV 8.6 Absolute Neuts (auto) 4.9 Neutrophils % 79.3 D Lymphocytes % 13.3 D Monocytes % 6.3 Eosinophils % 0.6 Basophils % 0.5 Nucleated RBC % 0 PT with INR 37.90 H INR 3.17 H PTT (Actin FS) Sodium 143 Potassium 3.7 Chloride 112 H Carbon Dioxide 23 Anion Gap 8 BUN 25 H Creatinine 1.4 H Creat Clearance w eGFR 48.64 POC Glucometer Random Glucose 93 Calcium 7.5 L Phosphorus Magnesium Total Bilirubin 0.4 AST 19 ALT 15 Alkaline Phosphatase 155 H Creatine Kinase 53 Troponin I 0.02 B-Natriuretic Peptide 30502.3 H Total Protein 6.0 L Albumin 2.4 L Lipase 110 Urine Color Urine Appearance Urine pH Ur Specific [place] Urine Protein Urine Glucose (UA) Urine Ketones Urine Blood Urine Nitrite Urine Bilirubin Urine Urobilinogen Ur Leukocyte Esterase Urine WBC (Auto) Urine RBC (Auto) Urine Bacteria Urine Mucus Urine Yeast Blood Type Antibody Screen 02/07/18 02/08/18 02/08/18 18:54 02:50 05:33 WBC RBC Hgb Hct MCV MCH MCHC RDW Plt Count MPV Absolute Neuts (auto) Neutrophils % Lymphocytes % Monocytes % Eosinophils % Basophils % Nucleated RBC % PT with INR INR PTT (Actin FS) Sodium Potassium Chloride Carbon Dioxide Anion Gap BUN Creatinine Creat Clearance w eGFR POC Glucometer 55 Random Glucose Calcium Phosphorus Magnesium Total Bilirubin AST ALT Alkaline Phosphatase Creatine Kinase Troponin I 0.02 B-Natriuretic Peptide Total Protein Albumin Lipase Urine Color Yellow Urine Appearance Cloudy Urine pH 5.0 D Ur Specific [place] 1.006 L Urine Protein 2+ H Urine Glucose (UA) Negative Urine Ketones Negative Urine Blood 2+ H Urine Nitrite Negative Urine Bilirubin Negative Urine Urobilinogen Negative Ur Leukocyte Esterase 3+ H Urine WBC (Auto) 776 Urine RBC (Auto) 13 Urine Bacteria Moderate Urine Mucus Rare Urine Yeast Few Blood Type Antibody Screen 02/08/18 02/08/18 02/08/18 07:07 08:43 08:43 WBC 5.8 RBC 3.75 L Hgb 11.5 L Hct 36.7 MCV 97.8 H MCH 30.6 MCHC 31.3 L RDW 17.5 H Plt Count 169 MPV 8.5 Absolute Neuts (auto) 4.0 Neutrophils % 70.2 Lymphocytes % 19.2 D Monocytes % 9.4 Eosinophils % 0.7 Basophils % 0.5 Nucleated RBC % 0 PT with INR 37.70 H INR 3.16 H PTT (Actin FS) 45.7 H Sodium Potassium Chloride Carbon Dioxide Anion Gap BUN Creatinine Creat Clearance w eGFR POC Glucometer 105 Random Glucose Calcium Phosphorus Magnesium Total Bilirubin AST ALT Alkaline Phosphatase Creatine Kinase Troponin I B-Natriuretic Peptide Total Protein Albumin Lipase Urine Color Urine Appearance Urine pH Ur Specific [place] Urine Protein Urine Glucose (UA) Urine Ketones Urine Blood Urine Nitrite Urine Bilirubin Urine Urobilinogen Ur Leukocyte Esterase Urine WBC (Auto) Urine RBC (Auto) Urine Bacteria Urine Mucus Urine Yeast Blood Type Antibody Screen 02/08/18 02/08/18 02/08/18 08:43 08:43 11:33 WBC RBC Hgb Hct MCV MCH MCHC RDW Plt Count MPV Absolute Neuts (auto) Neutrophils % Lymphocytes % Monocytes % Eosinophils % Basophils % Nucleated RBC % PT with INR INR PTT (Actin FS) Sodium 142 Potassium 3.8 Chloride 112 H Carbon Dioxide 21 Anion Gap 9 BUN 27 H Creatinine 1.6 H Creat Clearance w eGFR 41.69 POC Glucometer 65 Random Glucose 68 L Calcium 7.3 L Phosphorus 3.1 Magnesium 1.3 L Total Bilirubin 0.4 AST 14 L ALT 13 Alkaline Phosphatase 133 H Creatine Kinase Troponin I B-Natriuretic Peptide Total Protein 5.5 L Albumin 2.4 L Lipase Urine Color Urine Appearance Urine pH Ur Specific [place] Urine Protein Urine Glucose (UA) Urine Ketones Urine Blood Urine Nitrite Urine Bilirubin Urine Urobilinogen Ur Leukocyte Esterase Urine WBC (Auto) Urine RBC (Auto) Urine Bacteria Urine Mucus Urine Yeast Blood Type B POSITIVE Antibody Screen Negative Atrial fibrillation with nonspecific ST-T abnormality Problem List - Problems (1) Pleural effusion, right Code(s): J90 - PLEURAL EFFUSION, NOT ELSEWHERE CLASSIFIED (2) Acute on chronic congestive heart failure Code(s): I50.9 - HEART FAILURE, UNSPECIFIED Qualifiers: Qualified Code(s): I50.43 - Acute on chronic combined systolic (congestive) and diastolic (congestive) heart failure (3) Afib Code(s): I48.91 - UNSPECIFIED ATRIAL FIBRILLATION Qualifiers: Qualified Code(s): I48.2 - Chronic atrial fibrillation (4) Anemia Code(s): D64.9 - ANEMIA, UNSPECIFIED Qualifiers: Qualified Code(s): D64.9 - Anemia, unspecified (5) Breast cancer in male Code(s): C50.929 - MALIGNANT NEOPLASM OF UNSP SITE OF UNSPECIFIED MALE BREAST (6) Chronic kidney disease (CKD) Code(s): N18.9 - CHRONIC KIDNEY DISEASE, UNSPECIFIED Qualifiers: Qualified Code(s): N18.9 - Chronic kidney disease, unspecified (7) Coronary artery disease Code(s): I25.10 - ATHSCL HEART DISEASE OF [place] CORONARY ARTERY W/O ANG PCTRS Qualifiers: Qualified Code(s): I25.10 - Atherosclerotic heart disease of [place] coronary artery without angina pectoris (8) HTN (hypertension) Code(s): I10 - ESSENTIAL (PRIMARY) HYPERTENSION Qualifiers: Qualified Code(s): I10 - Essential (primary) hypertension (9) Hyperlipidemia Code(s): E78.5 - HYPERLIPIDEMIA, UNSPECIFIED Qualifiers: Qualified Code(s): E78.00 - Pure hypercholesterolemia, unspecified; E78.0 - Pure hypercholesterolemia (10) Pacemaker Code(s): Z95.0 - PRESENCE OF CARDIAC PACEMAKER (11) Pulmonary hypertension Code(s): I27.2 - OTHER SECONDARY PULMONARY HYPERTENSION * DO NOT USE * (12) Sick sinus syndrome Code(s): I49.5 - SICK SINUS SYNDROME (13) Status post coronary artery stent placement Code(s): Z95.5 - PRESENCE OF CORONARY ANGIOPLASTY IMPLANT AND GRAFT (14) Systolic and diastolic CHF, acute on chronic Code(s): I50.43 - ACUTE ON CHRONIC COMBINED SYSTOLIC AND DIASTOLIC HRT FAIL (15) Type 2 diabetes mellitus Code(s): E11.9 - TYPE 2 DIABETES MELLITUS WITHOUT COMPLICATIONS Assessment/Plan 1. Right pleural effusion with underlying history of breast CA s/p mastectomy and chemotherapy 2. History of acute on chronic LV systolic dysfunction and class 2 NYHA classification LV failure 3. Persistent AF on NOAC, [id number] score of 6 4. HTN/HCVD 5. Hypercholesterolemia 6. DM 7. CAD, PCI/stent, angina pectoris 8. AV block s/p PPM 9. Mitral valve and tricuspid valve regurgitation 10. CKD PLAN: 1. Hold Warfarin and let INR drift down. Once INR below 2.0, bridge with Heparin 2. IR evaluation for drainage of pleural effusion 3. Continue Carvedilol, Valsartan and Amlodipin 4. Continue statin 5. Continue Colchicine 6. Diuretic as needed 7. Empiric antibiotic coverage Further plans are to follow Chente Gasca MD
[2018-02-08] MEDS: ATORVASTATIN CA 10 MG TABLET (FP) PO SCH (21:35)
[2018-02-09] MEDS: INSULIN SLIDING SCALE (NOVOLOG) 1 VIAL SQ SCH ×4 (06:00→22:05)
[2018-02-09 06:30] LABS: HEMATOCRIT 30.3 % (35.4-49); HEMOGLOBIN 9.8 GM/dL (11.7-16.9); MCH 31.3 pg (25.7-33.7); MCHC 32.6 g/dl (32.0-35.9); MEAN CELL VOLUME 96.3 fl (80-96); MEAN PLT VOLUME 8.4 fl (7.5-11.1); PLATELET COUNT 130 K/MM3 (134-434); RBC 3.14 M/mm3 (4.00-5.60); RDW 17.3 % (11.9-15.9); WHITE BLOOD COUNT 4.8 K/mm3 (4.0-10.0)
[2018-02-09 06:56] LABS: INR 3.52 (0.83-1.09); PROTHROMBIN TIME (PATIENT) 42.1 SEC (9.7-13.0)
[2018-02-09 07:04] LABS: ALK PHOS 111 U/L (45-117); ANION GAP 7 MMOL/L (8-16); BILIRUBIN,TOTAL 0.4 mg/dL (0.2-1); BLOOD UREA NITROGEN 28 mg/dL (7-18); CHLORIDE 110 mmol/L (98-107); CO2 23 mmol/L (21-32); CREATININE 1.7 mg/dL (0.55-1.3); GLUCOSE,RANDOM 58 mg/dL (74-106); POTASSIUM 3.8 mmol/L (3.5-5.1); SGOT/AST 12 U/L (15-37); SGPT/ALT 11 U/L (13-61); SODIUM 140 mmol/L (136-145); TOT PROT 4.7 g/dl (6.4-8.2)
[2018-02-09] MEDS ORDERED: cefTRIAXone SODIUM 1 GM VIAL ONE (09:42)
[2018-02-09] MEDS ORDERED: PT OWN MED DRAWER 7, Y5N ONE ×2 (09:42→12:59)
[2018-02-09] MEDS ORDERED: DEXTROSE 5%-WATER - 50 ML IVPB ONE (09:43)
[2018-02-09] MEDS: PANTOPRAZOLE 40 MG TABLET (FP) PO SCH (10:58)
[2018-02-09] MEDS: CEFTRIAXONE 1 GM in DEXTROSE 5%-WATER - 50 ML IVPB SCH (10:58)
[2018-02-09] MEDS: COLCHICINE 0.6 MG TABLET (FP) PO SCH (10:58)
[2018-02-09] MEDS: amLODIPine BESYLATE 5 MG TABLET (FP) PO SCH (10:58)
[2018-02-09] MEDS: CARVEDILOL 25 MG TABLET (FP) PO SCH ×2 (10:58→21:49)
[2018-02-09] MEDS: SERTRALINE HCL 50 MG TABLET (FP) PO SCH (10:58)
--- NOTE | 2018-02-09 11:00 | PN ---
Progress Note (short form) - Note Progress Note: No distress No chest pain Lying down Vital Signs - 24 hr 02/08/18 02/08/18 02/08/18 14:09 18:00 21:00 Temperature 97.5 F L 97.9 F Pulse Rate 98 H 66 Respiratory 18 18 18 Rate Blood Pressure 129/69 120/58 L O2 Sat by Pulse 96 Oximetry (%) 02/08/18 02/09/18 02/09/18 22:00 01:48 05:00 Temperature 97.8 F 98.5 F -97 F L Pulse Rate 64 60 Respiratory 18 18 Rate Blood Pressure 120/74 109/61 O2 Sat by Pulse Oximetry (%) 02/09/18 09:00 Temperature 97.3 F L Pulse Rate 67 Respiratory 18 Rate Blood Pressure 116/73 O2 Sat by Pulse Oximetry (%) Current Medications Generic Name Dose Route Start Last Admin Trade Name Freq PRN Reason Stop Dose Admin Amlodipine Besylate 5 mg 02/08/18 10:00 02/09/18 10:58 Norvasc - PO 5 mg DAILY ALEX Administration Atorvastatin Calcium 10 mg 02/08/18 22:00 02/08/18 21:35 Lipitor - PO 10 mg HS ALEX Administration Carvedilol 25 mg 02/08/18 10:00 02/09/18 10:58 Coreg - PO 25 mg BID ALEX Administration Colchicine 0.6 mg 02/08/18 10:00 02/09/18 10:58 Colcrys - PO 0.6 mg DAILY ALEX Administration Ceftriaxone Sodium 1 gm/ 50 mls @ 100 mls/hr 02/09/18 08:00 02/09/18 10:58 Dextrose IVPB 100 mls/hr DAILY@0800 ALEX Administration Insulin Aspart 1 vial 02/08/18 07:00 02/09/18 06:00 Novolog Vial Sliding Scale - SQ Not Given ACHS ALEX Protocol Pantoprazole Sodium 40 mg 02/08/18 10:00 02/09/18 10:58 Protonix - PO 40 mg DAILY ALEX Administration Phytonadione 5 mg 02/09/18 11:00 Mephyton - PO 02/09/18 11:01 ONCE ONE Sertraline HCl 50 mg 02/08/18 10:00 02/09/18 10:58 Zoloft - PO 50 mg DAILY ALEX Administration Laboratory Results - last 24 hr 02/08/18 02/08/18 02/08/18 11:33 16:55 21:34 WBC RBC Hgb Hct MCV MCH MCHC RDW Plt Count MPV PT with INR INR Sodium Potassium Chloride Carbon Dioxide Anion Gap BUN Creatinine Creat Clearance w eGFR POC Glucometer 65 86 64 Random Glucose Calcium Total Bilirubin AST ALT Alkaline Phosphatase Total Protein Albumin 02/09/18 02/09/18 02/09/18 05:35 05:35 05:35 WBC 4.8 RBC 3.14 L Hgb 9.8 L Hct 30.3 L D MCV 96.3 H MCH 31.3 MCHC 32.6 RDW 17.3 H Plt Count 130 L D MPV 8.4 PT with INR 42.10 H INR 3.52 H Sodium 140 Potassium 3.8 Chloride 110 H Carbon Dioxide 23 Anion Gap 7 L BUN 28 H Creatinine 1.7 H Creat Clearance w eGFR 38.88 POC Glucometer Random Glucose 58 L Calcium 7.0 L Total Bilirubin 0.4 AST 12 L ALT 11 L Alkaline Phosphatase 111 Total Protein 4.7 L Albumin 2.0 L 02/09/18 05:51 WBC RBC Hgb Hct MCV MCH MCHC RDW Plt Count MPV PT with INR INR Sodium Potassium Chloride Carbon Dioxide Anion Gap BUN Creatinine Creat Clearance w eGFR POC Glucometer 66 Random Glucose Calcium Total Bilirubin AST ALT Alkaline Phosphatase Total Protein Albumin S1 S2 Irregular Lungs decreased breath sounds right ABd- soft,NT ND. BS+, ventral hernia+ no edema PLAN Pleural effusion -- recurrent -- unsure malignant --INR elevated- more today- will give Vit K -- Pulmonary eval Afib-- rate is controlled -- spoke with Cardiology -- coumadin on hold UTI -- on IV Ceftriaxone -- urine cultures pending Acute on CKD -- creatinine worsening -- Lasix on hold -- dc Valsartan Problem List - Problems (1) Pleural effusion, right Code(s): J90 - PLEURAL EFFUSION, NOT ELSEWHERE CLASSIFIED (2) Acute on chronic renal failure Code(s): N17.9 - ACUTE KIDNEY FAILURE, UNSPECIFIED; N18.9 - CHRONIC KIDNEY DISEASE, UNSPECIFIED (3) Afib Code(s): I48.91 - UNSPECIFIED ATRIAL FIBRILLATION Qualifiers: Atrial fibrillation type: chronic Qualified Code(s): I48.2 - Chronic atrial fibrillation (4) Anemia Code(s): D64.9 - ANEMIA, UNSPECIFIED Qualifiers: Anemia type: unspecified type Qualified Code(s): D64.9 - Anemia, unspecified (5) Ascites Code(s): R18.8 - OTHER ASCITES Qualifiers: Ascites type: other type Qualified Code(s): R18.8 - Other ascites (6) Breast cancer in male Code(s): C50.929 - MALIGNANT NEOPLASM OF UNSP SITE OF UNSPECIFIED MALE BREAST
[2018-02-09] MEDS ORDERED: PHYTONADIONE 5 MG TABLET PO ONE (12:30)
--- NOTE | 2018-02-09 15:06 | PN ---
Progress Note (short form) - Note Progress Note: PULMONARY CONSULTATION DICTATED 02/09/18 IMP ACUTE ON CHRONIC CHF BILATERAL EFFUSIONS R>L ? SECONDARY TO CHF,? MALIGNANT AFIB ASHD S/P STENTS S/P PPM ACUTE ON CHRONIC KIDNEY DISEASE H/O BREAST CA S/P R MASTECTOMY,S/P CHEMO PULMONARY HTN MITRAL AND TRICUSPID REGURG DM HTN HLD PLAN LASIX O2 DAILY WTS HOLD COUMADIN THORACENTESIS WHEN INR CORRECTED MONITOR LYTES,RENAL FUNCTION DR AKINS Problem List - Problems (1) Pleural effusion, right Code(s): J90 - PLEURAL EFFUSION, NOT ELSEWHERE CLASSIFIED (2) Acute on chronic congestive heart failure Code(s): I50.9 - HEART FAILURE, UNSPECIFIED Qualifiers: Qualified Code(s): I50.43 - Acute on chronic combined systolic (congestive) and diastolic (congestive) heart failure (3) Acute on chronic renal failure Code(s): N17.9 - ACUTE KIDNEY FAILURE, UNSPECIFIED; N18.9 - CHRONIC KIDNEY DISEASE, UNSPECIFIED (4) Afib Code(s): I48.91 - UNSPECIFIED ATRIAL FIBRILLATION Qualifiers: Atrial fibrillation type: chronic Qualified Code(s): I48.2 - Chronic atrial fibrillation (5) Anemia Code(s): D64.9 - ANEMIA, UNSPECIFIED Qualifiers: Anemia type: unspecified type Qualified Code(s): D64.9 - Anemia, unspecified (6) Breast cancer in male Code(s): C50.929 - MALIGNANT NEOPLASM OF UNSP SITE OF UNSPECIFIED MALE BREAST (7) Coronary artery disease Code(s): I25.10 - ATHSCL HEART DISEASE OF [place] CORONARY ARTERY W/O ANG PCTRS Qualifiers: Coronary Disease-Associated Artery/Lesion type: [place] artery [place] vs. transplanted heart: [place] heart Associated angina: without angina Qualified Code(s): I25.10 - Atherosclerotic heart disease of [place] coronary artery without angina pectoris (8) Edema, peripheral Code(s): R60.9 - EDEMA, UNSPECIFIED (9) HTN (hypertension) Code(s): I10 - ESSENTIAL (PRIMARY) HYPERTENSION Qualifiers: Hypertension type: essential hypertension Qualified Code(s): I10 - Essential (primary) hypertension (10) Hyperlipidemia Code(s): E78.5 - HYPERLIPIDEMIA, UNSPECIFIED Qualifiers: Hyperlipidemia type: pure hypercholesterolemia (11) Pulmonary hypertension Code(s): I27.2 - OTHER SECONDARY PULMONARY HYPERTENSION * DO NOT USE * (12) Sick sinus syndrome Code(s): I49.5 - SICK SINUS SYNDROME (13) Status post coronary artery stent placement Code(s): Z95.5 - PRESENCE OF CORONARY ANGIOPLASTY IMPLANT AND GRAFT (14) Supratherapeutic INR Code(s): R79.1 - ABNORMAL COAGULATION PROFILE (15) Type 2 diabetes mellitus Code(s): E11.9 - TYPE 2 DIABETES MELLITUS WITHOUT COMPLICATIONS Qualifiers: Diabetes mellitus complication status: with kidney complications Diabetes mellitus complication detail: with chronic kidney disease Chronic kidney disease stage: stage 3 (moderate)
--- NOTE | 2018-02-09 15:29 | CONS ---
DATE OF CONSULTATION: 02/09/2018 REFERRING PHYSICIAN: Adán Martinez MD HISTORY: The patient is an 82-year-old white male with a past medical history of ASHD status post stents, systolic LV dysfunction, persistent atrial fibrillation maintained on anticoagulation, AV block status post permanent pacemaker, advanced pulmonary hypertension, mitral regurgitation, tricuspid valve regurgitation, hypertensive cardiovascular disease, diabetes, hypertension, hypercholesterolemia; history of breast cancer status post right mastectomy in 2004, postop treated with chemo; chronic kidney disease, nonsmoker, admitted to [facility] on February 08 with complaint of 2-week history of increasing shortness of breath. Patient denies any complaints of chest pain, nausea, vomiting, or diaphoresis. Denies any fevers, chills. Denies any cough or hemoptysis. He states for the past couple of weeks though he started noticing increasing shortness of breath with minimal exertion. He also states that he sleeps on his left side on 2 pillows secondary to orthopnea. He denies any history of DVT or PE in the past. There is no history of recent travel. PAST MEDICAL HISTORY: Again includes atrial fibrillation, ASHD status post stents, status post permanent pacemaker secondary to AV block, LV dysfunction, pulmonary hypertension, mitral regurgitation, tricuspid regurgitation, hypertensive cardiovascular disease, diabetes, hypercholesterolemia, history of breast cancer status post mastectomy status post chemo. SOCIAL HISTORY: Nonsmoker. 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 Denies any occupational exposures to chemicals, fumes. CURRENT MEDICATIONS: Include Flomax, ceftriaxone, Zoloft, Colcrys, Coreg, Norvasc, Lipitor, NovoLog, and Protonix. REVIEW OF SYSTEMS: Positive orthopnea, positive dyspnea. No chest pain, no cough, no hemoptysis. No abdominal pain. Positive lower extremity edema. PHYSICAL EXAMINATION: General: The patient is an elderly white male, thin, , awake, alert, currently in no acute distress. Vital Signs: He is currently afebrile. Blood pressure is 122/74. Respiratory rate is 18. O2 saturation is 97% on nasal O2. HEENT: Exam is normocephalic, atraumatic. Neck: Supple. Heart: Irregularly irregular, S1, S2. Chest: Diminished breath sounds on the right, few crackles on the left base. Abdomen: Soft. Bowel sounds are positive. Extremities: Bilateral lower extremity edema. LABORATORY: BUN 28, creatinine 1.7. BNP is 44,440. INR is 3.52. WBC is 4.8, hemoglobin 9.8, hematocrit 30.3, and platelet count of 133,000. Chest CT: Very large right pleural effusion with compressive atelectasis of right lung. There is small left pleural effusion as well as a focal opacity in the right apex. No change since 2016. IMPRESSION: 1. Dyspnea, most likely secondary to [id number] congestive heart failure. 2. Arteriosclerotic heart disease status post stents. 3. Large right pleural effusion, small left pleural effusion, possibly secondary to congestive heart failure. Cannot exclude possible malignant etiology in view of history of breast cancer. 4. Permanent atrial fibrillation. 5. Pulmonary hypertension. 6. [id number] kidney injury. 7. Hypertension. 8. Tricuspid and mitral valve regurgitation. PLAN: Supplemental O2, Lasix, daily weights, chest x-rays. Will schedule for thoracentesis with ultrasound guidance once INR corrected. Monitor electrolytes and renal function. Thank you. Will follow closely with you. HIWOT AKINS M.D. [id number]
--- NOTE | 2018-02-09 19:01 | ECHO ---
Version: 1 Name: EFREN CORDOBA Exam: Adult Echocardiogram Study Date: 02/09/2018, 9:49 AM Age: 82 Years MMode/2D Measurements & Calculations IVSd: 1.05 cm LVIDs: 4.2 cm LVIDd: 4.9 cm LVPWd: 0.77 cm LAV (MOD-bp): 135.0 ml LVOT diam: 2.39 cm Ao root diam: 3.3 cm LA dimension: 3.7 cm Doppler Measurements & Calculations MV E max joo: 47.9 cm/sec Med E/e': 15.4 MV A max joo: 23.7 cm/sec Med Peak E' Joo: 3.1 cm/sec MV E/A: 2.02 Lat E/e': 7.5 Lat Peak E' Joo: 6.4 cm/sec MR max P.7 mmHg Ao max P.8 mmHg CATHY(I,D): 0.40 cm Ao mean P.8 mmHg LV V1 mean: 16.6 cm/sec Ao V2 max: 151.9 cm/sec LV V1 mean P.17 mmHg AI P1/2t: 614.5 msec PI end-d joo: 136.6 cm/sec TR max joo: 309.3 cm/sec TR max P.0 mmHg Procedure A two-dimensional transthoracic echocardiogram with color flow and Doppler was performed. The study was technically difficult with many images being suboptimal in quality. Left Ventricle The left ventricle is grossly normal size. Left ventricular systolic function is severely reduced. A pical wall motion abnormality may reflect pacemaker activation. There is severe global hypokinesis of the left ventricle. Right Ventricle There is a pacemaker lead in the right ventricle. The right ventricle is not well visualized. Atria Normal left and right atrial size and function. The atrial septum is aneurysmal. Mitral Valve There is mild mitral valve thickening. There is no mitral valve stenosis. There is moderate mitral regurgitation. Tricuspid Valve There is mild to moderate tricuspid valve thickening. There is no tricuspid stenosis. There is sever e pulmonary hypertension. Right ventricular systolic pressure is elevated at >60mmHg. There is severe tricuspid regurgitation. Aortic Valve The aortic valve is not well visualized. There is mild to moderate aortic valve thickening. There is mild to moderate aortic sclerosis.;. Hemodynamically significant valvular aortic stenosis cannot be excluded . Moderate aortic regurgitation. Pulmonic Valve The pulmonic valve is not well visualized. There is no pulmonic valvular stenosis. Moderate pulmonic valvular regurgitation. Great Vessels The aortic root is normal size. There is aortic root sclerosis/calcification. Pericardium/Pleura There is no pericardial effusion. Summary Statements The left ventricle is grossly normal size. Apical wall motion abnormality may reflect pacemaker activation. Left ventricular systolic function is severely reduced. There is severe global hypokinesis of the left ventricle. There is a pacemaker lead in the right ventricle. There is severe pulmonary hypertension. Right ventricular systolic pressure is elevated at >60mmHg. There is severe tricuspid regurgitation. The aortic valve is not well visualized. There is mild to moderate aortic valve thickening. There is mild to moderate aortic sclerosis.; The study was technically difficult with many images being suboptimal in quality. The right ventricle is not well visualized. The atrial septum is aneurysmal. There is moderate mitral regurgitation. Hemodynamically significant valvular aortic stenosis cannot be excluded. There is aortic root sclerosis/calcification. MD Jorge Denise 02/09/2018, 7:00 PM Ordering Physician: Ginette Ayala Referring Physician: GINETTE AYALA Performed By: Lisa Marie
--- NOTE | 2018-02-09 19:05 | EKG ---
Test Reason : Blood Pressure : / mmHG Vent. Rate : 086 BPM Atrial Rate : 060 BPM P-R Int : 000 ms QRS Dur : 104 ms QT Int : 416 ms P-R-T Axes : 000 -20 209 degrees QTc Int : 497 ms ATRIAL FIBRILLATION WITH PREMATURE VENTRICULAR OR ABERRANTLY CONDUCTED COMPLEXES BASELINE ARTIFACT PROLONGED QT ABNORMAL ECG WHEN COMPARED WITH ECG OF 27-JUN-2017 22:47, ATRIAL FIBRILLATION HAS REPLACED BASELINE ARTIFACT; SUGGEST REPEAT STUDY Confirmed by KELTON ORTEGA, JULIANN ([id number]) on 02/09/2018 7:05:24 PM Referred By: Confirmed By:JULIANN MELARA MD
--- NOTE | 2018-02-09 19:06 | EKG ---
Test Reason : Blood Pressure : / mmHG Vent. Rate : 078 BPM Atrial Rate : 081 BPM P-R Int : 000 ms QRS Dur : 116 ms QT Int : 418 ms P-R-T Axes : 000 -23 159 degrees QTc Int : 476 ms ATRIAL FIBRILLATION POSSIBLE ANTERIOR INFARCT , AGE UNDETERMINED ABNORMAL ECG WHEN COMPARED WITH ECG OF 27-JUN-2017 22:47, ATRIAL FIBRILLATION HAS REPLACED ELECTRONIC VENTRICULAR PACEMAKER Confirmed by KELTON ORTEGA, JULIANN ([id number]) on 02/09/2018 7:06:28 PM Referred By: Confirmed By:JULIANN MELARA MD
[2018-02-09] MEDS: FUROSEMIDE 40 MG/4 ML INJECTABLE VIAL IVPUSH SCH (21:49)
[2018-02-09] MEDS: ATORVASTATIN CA 10 MG TABLET (FP) PO SCH (21:49)
[2018-02-10] MEDS: INSULIN SLIDING SCALE (NOVOLOG) 1 VIAL SQ SCH ×4 (06:46→21:48)
[2018-02-10 08:09] LABS: INR 2.03 (0.83-1.09); PROTHROMBIN TIME (PATIENT) 24.1 SEC (9.7-13.0)
[2018-02-10 08:26] LABS: ANION GAP 7 MMOL/L (8-16); BLOOD UREA NITROGEN 28 mg/dL (7-18); CHLORIDE 108 mmol/L (98-107); CO2 23 mmol/L (21-32); CREATININE 1.9 mg/dL (0.55-1.3); GLUCOSE,RANDOM 79 mg/dL (74-106); POTASSIUM 4.3 mmol/L (3.5-5.1); SODIUM 138 mmol/L (136-145)
[2018-02-10] MEDS ORDERED: cefTRIAXone SODIUM 1 GM VIAL ONE (09:20)
[2018-02-10] MEDS ORDERED: DEXTROSE 5%-WATER - 50 ML IVPB ONE (09:20)
[2018-02-10] MEDS: CEFTRIAXONE 1 GM in DEXTROSE 5%-WATER - 50 ML IVPB SCH (09:38)
[2018-02-10] MEDS: FUROSEMIDE 40 MG/4 ML INJECTABLE VIAL IVPUSH SCH (09:38)
[2018-02-10] MEDS: TAMSULOSIN HCL 0.4 MG CAP PO SCH (09:38)
[2018-02-10] MEDS: COLCHICINE 0.6 MG TABLET (FP) PO SCH (09:38)
[2018-02-10] MEDS: PANTOPRAZOLE 40 MG TABLET (FP) PO SCH (09:38)
[2018-02-10] MEDS: SERTRALINE HCL 50 MG TABLET (FP) PO SCH (09:38)
[2018-02-10] MEDS: CARVEDILOL 25 MG TABLET (FP) PO SCH ×2 (09:38→21:48)
[2018-02-10] MEDS: amLODIPine BESYLATE 5 MG TABLET (FP) PO SCH (09:38)
--- NOTE | 2018-02-10 10:16 | PN ---
Progress Note, Physician Chief Complaint: Not in distress History of Present Illness: Patient was seen and examined. Chart was reviewed - Current Medication List Current Medications: Active Medications Amlodipine Besylate (Norvasc -) 5 mg PO DAILY [facility] Last Admin: 02/10/18 09:38 Dose: 5 mg Atorvastatin Calcium (Lipitor -) 10 mg PO HS [facility] Last Admin: 02/09/18 21:49 Dose: 10 mg Carvedilol (Coreg -) 25 mg PO BID [facility] Last Admin: 02/10/18 09:38 Dose: 25 mg Colchicine (Colcrys -) 0.6 mg PO DAILY [facility] Last Admin: 02/10/18 09:38 Dose: 0.6 mg Furosemide (Lasix Injection -) 40 mg IVPUSH DAILY [facility] Last Admin: 02/10/18 09:38 Dose: 40 mg Ceftriaxone Sodium 1 gm/ (Dextrose) 50 mls @ 100 mls/hr IVPB DAILY@0800 [facility] Last Admin: 02/10/18 09:38 Dose: 100 mls/hr Insulin Aspart (Novolog Vial Sliding Scale -) 1 vial SQ ACHS [facility]; Protocol Last Admin: 02/10/18 06:46 Dose: Not Given Pantoprazole Sodium (Protonix -) 40 mg PO DAILY [facility] Last Admin: 02/10/18 09:38 Dose: 40 mg Sertraline HCl (Zoloft -) 50 mg PO DAILY [facility] Last Admin: 02/10/18 09:38 Dose: 50 mg Tamsulosin HCl (Flomax -) 0.4 mg PO DAILY@0830 [facility] Last Admin: 02/10/18 09:38 Dose: 0.4 mg - Objective Vital Signs: Vital Signs Temperature 97.4 F L 02/10/18 05:30 Pulse Rate 62 02/10/18 06:38 Respiratory Rate 18 02/10/18 06:38 Blood Pressure 97/61 02/10/18 06:38 O2 Sat by Pulse Oximetry (%) 94 L 02/09/18 21:00 Neck: Yes: Supple Cardiovascular: Yes: Pulse Irregular, S1, S2 Respiratory: Yes: Diminished Gastrointestinal: Yes: Normal Bowel Sounds, Soft. No: Tenderness Edema: No Labs: CBC, BMP 02/09/18 05:35 02/10/18 07:00 INR, PTT INR 2.03 (0.83-1.09) H 02/10/18 07:00 Problem List - Problems (1) Pleural effusion, right Code(s): J90 - PLEURAL EFFUSION, NOT ELSEWHERE CLASSIFIED (2) Acute on chronic congestive heart failure Code(s): I50.9 - HEART FAILURE, UNSPECIFIED (3) Afib Code(s): I48.91 - UNSPECIFIED ATRIAL FIBRILLATION Qualifiers: Atrial fibrillation type: chronic Qualified Code(s): I48.2 - Chronic atrial fibrillation (4) Anemia Code(s): D64.9 - ANEMIA, UNSPECIFIED Qualifiers: Anemia type: unspecified type Qualified Code(s): D64.9 - Anemia, unspecified (5) Breast cancer in male Code(s): C50.929 - MALIGNANT NEOPLASM OF UNSP SITE OF UNSPECIFIED MALE BREAST (6) Chronic kidney disease (CKD) Code(s): N18.9 - CHRONIC KIDNEY DISEASE, UNSPECIFIED Qualifiers: Chronic kidney disease stage: unspecified stage Qualified Code(s): N18.9 - Chronic kidney disease, unspecified (7) Coronary artery disease Code(s): I25.10 - ATHSCL HEART DISEASE OF [place] CORONARY ARTERY W/O ANG PCTRS Qualifiers: Coronary Disease-Associated Artery/Lesion type: [place] artery [place] vs. transplanted heart: [place] heart Associated angina: without angina Qualified Code(s): I25.10 - Atherosclerotic heart disease of [place] coronary artery without angina pectoris (8) HTN (hypertension) Code(s): I10 - ESSENTIAL (PRIMARY) HYPERTENSION Qualifiers: Hypertension type: essential hypertension Qualified Code(s): I10 - Essential (primary) hypertension (9) Hyperlipidemia Code(s): E78.5 - HYPERLIPIDEMIA, UNSPECIFIED Qualifiers: Hyperlipidemia type: pure hypercholesterolemia Qualified Code(s): E78.00 - Pure hypercholesterolemia, unspecified; E78.0 - Pure hypercholesterolemia (10) Pacemaker Code(s): Z95.0 - PRESENCE OF CARDIAC PACEMAKER (11) Pulmonary hypertension Code(s): I27.2 - OTHER SECONDARY PULMONARY HYPERTENSION * DO NOT USE * (12) Sick sinus syndrome Code(s): I49.5 - SICK SINUS SYNDROME (13) Status post coronary artery stent placement Code(s): Z95.5 - PRESENCE OF CORONARY ANGIOPLASTY IMPLANT AND GRAFT (14) Systolic and diastolic CHF, acute on chronic Code(s): I50.43 - ACUTE ON CHRONIC COMBINED SYSTOLIC AND DIASTOLIC HRT FAIL (15) Type 2 diabetes mellitus Code(s): E11.9 - TYPE 2 DIABETES MELLITUS WITHOUT COMPLICATIONS Qualifiers: Diabetes mellitus complication status: with kidney complications Diabetes mellitus complication detail: with chronic kidney disease Chronic kidney disease stage: stage 3 (moderate) Assessment/Plan 1. Right pleural effusion with underlying history of breast CA s/p mastectomy and chemotherapy 2. History of acute on chronic LV systolic dysfunction and class 2 NYHA classification LV failure 3. Persistent AF on NOAC, [id number] score of 6 4. HTN/HCVD 5. Hypercholesterolemia 6. DM 7. CAD, PCI/stent, angina pectoris 8. AV block s/p PPM 9. Mitral valve and tricuspid valve regurgitation 10. CKD PLAN: 1. Hold Warfarin and let INR drift down. Once INR below 2.0, bridge with Heparin 2. IR evaluation for drainage of pleural effusion 3. Continue Carvedilol, Valsartan and Amlodipine 4. Continue statin 5. Continue Colchicine 6. Diuretic as needed 7. Empiric antibiotic coverage Further plans are to follow Chente Gasca MD
--- NOTE | 2018-02-10 11:43 | PN ---
Progress Note (short form) - Note Progress Note: PULMONARY States breathing about the same. No chest pain. No cough or fevers. Vital Signs Period Temp Pulse Resp BP Sys/Soria Pulse Ox Last 24 Hr 97.4 F-97.6 F 60-70 18-18 91-122/55-74 94 Gen: NAD at rest Heart: RRR Lung: decreased breath sounds R 2/3 up Abd: soft, nontender Ext: no edema CBC, BMP 02/09/18 05:35 02/10/18 07:00 Active Medications Amlodipine Besylate (Norvasc -) 5 mg PO DAILY [facility] Last Admin: 02/10/18 09:38 Dose: 5 mg Atorvastatin Calcium (Lipitor -) 10 mg PO HS [facility] Last Admin: 02/09/18 21:49 Dose: 10 mg Carvedilol (Coreg -) 25 mg PO BID [facility] Last Admin: 02/10/18 09:38 Dose: 25 mg Colchicine (Colcrys -) 0.6 mg PO DAILY [facility] Last Admin: 02/10/18 09:38 Dose: 0.6 mg Furosemide (Lasix Injection -) 40 mg IVPUSH DAILY [facility] Last Admin: 02/10/18 09:38 Dose: 40 mg Ceftriaxone Sodium 1 gm/ (Dextrose) 50 mls @ 100 mls/hr IVPB DAILY@0800 [facility] Last Admin: 02/10/18 09:38 Dose: 100 mls/hr Insulin Aspart (Novolog Vial Sliding Scale -) 1 vial SQ ACHS [facility]; Protocol Last Admin: 02/10/18 06:46 Dose: Not Given Pantoprazole Sodium (Protonix -) 40 mg PO DAILY [facility] Last Admin: 02/10/18 09:38 Dose: 40 mg Sertraline HCl (Zoloft -) 50 mg PO DAILY [facility] Last Admin: 02/10/18 09:38 Dose: 50 mg Tamsulosin HCl (Flomax -) 0.4 mg PO DAILY@0830 [facility] Last Admin: 02/10/18 09:38 Dose: 0.4 mg A/P Acute on Chronic Systolic Heart Failure Bilateral Pleural Effusions R>L Atrial Fibrillation h/o AV Block s/p PPM CAD Mitral/Tricuspid Regurgitation HTN DM Hypercholesterolemia CKD - continue lasix - monitor urine output, creatinine - daily weights - for right thoracentesis when INR allows - o2 to keep SpO2>90%
--- NOTE | 2018-02-10 12:22 | PN ---
Progress Note (short form) - Note Progress Note: No distress No chest pain Lying down Vital Signs - 24 hr 02/09/18 02/09/18 02/09/18 12:59 21:00 22:00 Temperature 97.4 F L Pulse Rate 64 60 Respiratory 18 18 Rate Blood Pressure 122/74 118/59 L O2 Sat by Pulse 94 L Oximetry (%) 02/10/18 02/10/18 02/10/18 01:37 05:30 06:38 Temperature 97.5 F L 97.4 F L Pulse Rate 65 70 62 Respiratory 18 18 18 Rate Blood Pressure 111/69 91/55 L 97/61 O2 Sat by Pulse Oximetry (%) 02/10/18 09:00 Temperature 97.6 F Pulse Rate 61 Respiratory 18 Rate Blood Pressure 117/63 O2 Sat by Pulse Oximetry (%) Current Medications Generic Name Dose Route Start Last Admin Trade Name Freq PRN Reason Stop Dose Admin Amlodipine Besylate 5 mg 02/08/18 10:00 02/10/18 09:38 Norvasc - PO 5 mg DAILY [facility] Administration Atorvastatin Calcium 10 mg 02/08/18 22:00 02/09/18 21:49 Lipitor - PO 10 mg HS [facility] Administration Carvedilol 25 mg 02/08/18 10:00 02/10/18 09:38 Coreg - PO 25 mg BID [facility] Administration Colchicine 0.6 mg 02/08/18 10:00 02/10/18 09:38 Colcrys - PO 0.6 mg DAILY [facility] Administration Furosemide 40 mg 02/09/18 19:15 02/10/18 09:38 Lasix Injection - IVPUSH 40 mg DAILY [facility] Administration Ceftriaxone Sodium 1 gm/ 50 mls @ 100 mls/hr 02/09/18 08:00 02/10/18 09:38 Dextrose IVPB 100 mls/hr DAILY@0800 [facility] Administration Insulin Aspart 1 vial 02/08/18 07:00 02/10/18 12:05 Novolog Vial Sliding Scale - SQ Not Given ACHS [facility] Protocol Pantoprazole Sodium 40 mg 02/08/18 10:00 02/10/18 09:38 Protonix - PO 40 mg DAILY [facility] Administration Sertraline HCl 50 mg 02/08/18 10:00 02/10/18 09:38 Zoloft - PO 50 mg DAILY [facility] Administration Tamsulosin HCl 0.4 mg 02/10/18 08:30 02/10/18 09:38 Flomax - PO 0.4 mg DAILY@0830 [facility] Administration Laboratory Results - last 24 hr 02/09/18 02/09/18 02/10/18 17:00 22:03 06:34 PT with INR INR Sodium Potassium Chloride Carbon Dioxide Anion Gap BUN Creatinine Creat Clearance w eGFR POC Glucometer 71 97 57 Random Glucose Calcium 02/10/18 02/10/18 02/10/18 07:00 07:00 07:52 PT with INR 24.10 H INR 2.03 H Sodium 138 Potassium 4.3 Chloride 108 H Carbon Dioxide 23 Anion Gap 7 L BUN 28 H Creatinine 1.9 H Creat Clearance w eGFR 34.19 POC Glucometer 90 Random Glucose 79 Calcium 7.0 L S1 S2 Irregular Lungs decreased breath sounds right ABd- soft,NT ND. BS+, ventral hernia+ no edema PLAN Pleural effusion -- recurrent -- unsure malignant --INR therapeutic, will need thoracentesis when INR is low -- Pulmonary eval noted Afib-- rate is controlled -- coumadin on hold UTI -- dc IV Ceftriaxone -- urine cultures noted Acute on CKD -- creatinine worsening -- dc Lasix -- check renal sono -- dc Valsartan Problem List - Problems (1) Pleural effusion, right Code(s): J90 - PLEURAL EFFUSION, NOT ELSEWHERE CLASSIFIED (2) Acute on chronic renal failure Code(s): N17.9 - ACUTE KIDNEY FAILURE, UNSPECIFIED; N18.9 - CHRONIC KIDNEY DISEASE, UNSPECIFIED (3) Afib Code(s): I48.91 - UNSPECIFIED ATRIAL FIBRILLATION Qualifiers: Atrial fibrillation type: chronic Qualified Code(s): I48.2 - Chronic atrial fibrillation (4) Anemia Code(s): D64.9 - ANEMIA, UNSPECIFIED Qualifiers: Anemia type: unspecified type Qualified Code(s): D64.9 - Anemia, unspecified (5) Ascites Code(s): R18.8 - OTHER ASCITES Qualifiers: Ascites type: other type Qualified Code(s): R18.8 - Other ascites (6) Breast cancer in male Code(s): C50.929 - MALIGNANT NEOPLASM OF UNSP SITE OF UNSPECIFIED MALE BREAST
[2018-02-10] MEDS: ATORVASTATIN CA 10 MG TABLET (FP) PO SCH (21:48)
[2018-02-11] MEDS: INSULIN SLIDING SCALE (NOVOLOG) 1 VIAL SQ SCH ×4 (07:13→21:57)
[2018-02-11 07:37] LABS: INR 1.57 (0.83-1.09); PROTHROMBIN TIME (PATIENT) 18.6 SEC (9.7-13.0)
[2018-02-11 07:40] LABS: HEMATOCRIT 33.1 % (35.4-49); HEMOGLOBIN 10.6 GM/dL (11.7-16.9); MCH 30.7 pg (25.7-33.7); MCHC 32.1 g/dl (32.0-35.9); MEAN CELL VOLUME 95.6 fl (80-96); MEAN PLT VOLUME 8.3 fl (7.5-11.1); PLATELET COUNT 130 K/MM3 (134-434); RBC 3.46 M/mm3 (4.00-5.60); RDW 16.5 % (11.9-15.9); WHITE BLOOD COUNT 4.5 K/mm3 (4.0-10.0)
[2018-02-11 08:49] LABS: ANION GAP 8 MMOL/L (8-16); BLOOD UREA NITROGEN 29 mg/dL (7-18); CALCIUM 7.3 mg/dL (8.5-10.1); CHLORIDE 108 mmol/L (98-107); CO2 23 mmol/L (21-32); POTASSIUM 4.5 mmol/L (3.5-5.1); SODIUM 139 mmol/L (136-145)
[2018-02-11 08:54] LABS: GLUCOSE,RANDOM 48 mg/dL (74-106)
[2018-02-11] MEDS ORDERED: cefTRIAXone SODIUM 1 GM VIAL ONE (09:07)
[2018-02-11] MEDS ORDERED: DEXTROSE 5%-WATER - 50 ML IVPB ONE (09:07)
[2018-02-11] MEDS: CEFTRIAXONE 1 GM in DEXTROSE 5%-WATER - 50 ML IVPB SCH (09:10)
[2018-02-11] MEDS: TAMSULOSIN HCL 0.4 MG CAP PO SCH (09:10)
[2018-02-11] MEDS: SERTRALINE HCL 50 MG TABLET (FP) PO SCH (09:11)
[2018-02-11] MEDS: CARVEDILOL 25 MG TABLET (FP) PO SCH ×2 (09:11→22:25)
[2018-02-11] MEDS: amLODIPine BESYLATE 5 MG TABLET (FP) PO SCH (09:11)
[2018-02-11] MEDS: PANTOPRAZOLE 40 MG TABLET (FP) PO SCH (09:11)
[2018-02-11] MEDS ORDERED: HEPARIN NA (PORCINE) 5,000 UNITS/ML 1ML VIAL IVPUSH PRN ×2 (10:38)
--- NOTE | 2018-02-11 10:41 | PN ---
Progress Note (short form) - Note Progress Note: pt seen/ examined chart reviewed. awake/ comfortable denies cp/sob going for Thoracocentesis today Vital Signs Temp 98 F 02/11/18 10:00 Pulse 62 02/11/18 10:00 Resp 18 02/11/18 10:00 BP 113/61 02/11/18 10:00 Pulse Ox 97 02/10/18 21:00 Intake & Output 02/10/18 02/10/18 02/11/18 11:59 23:59 11:59 Intake Total 890 240 Output Total 800 400 200 Balance -800 490 40 Intake: IVPB 50 Oral 840 240 Output: Urine 800 400 200 Void 800 400 200 Other: Voiding Method Urinal Toilet Bowel Movement No No No Active Medications Amlodipine Besylate (Norvasc -) 5 mg PO DAILY [facility] Last Admin: 02/11/18 09:11 Dose: 5 mg Atorvastatin Calcium (Lipitor -) 10 mg PO HS [facility] Last Admin: 02/10/18 21:48 Dose: 10 mg Carvedilol (Coreg -) 25 mg PO BID [facility] Last Admin: 02/11/18 09:11 Dose: 25 mg Heparin Sodium (Porcine) (Heparin -) 1,000 unit IVPUSH PRN PRN PRN Reason: Heparin Heparin Sodium (Porcine) (Heparin -) 5,000 unit IVPUSH PRN PRN PRN Reason: Heparin Ceftriaxone Sodium 1 gm/ (Dextrose) 50 mls @ 100 mls/hr IVPB DAILY@0800 [facility] Last Admin: 02/11/18 09:10 Dose: 100 mls/hr Heparin Sodium/Dextrose (Heparin Infusion -) 25,000 units in 500 mls @ 20 mls/ hr IVPB TITR [facility]; Protocol Insulin Aspart (Novolog Vial Sliding Scale -) 1 vial SQ ACHS [facility]; Protocol Last Admin: 02/11/18 10:19 Dose: Not Given Pantoprazole Sodium (Protonix -) 40 mg PO DAILY [facility] Last Admin: 02/11/18 09:11 Dose: 40 mg Sertraline HCl (Zoloft -) 50 mg PO DAILY [facility] Last Admin: 02/11/18 09:11 Dose: 50 mg Tamsulosin HCl (Flomax -) 0.4 mg PO DAILY@0830 [facility] Last Admin: 02/11/18 09:10 Dose: 0.4 mg Warfarin Sodium (Coumadin -) 5 mg PO DAILY@1800 [facility] CBC, BMP 02/11/18 07:00 02/11/18 07:00 Physical Exam. S1 S2 Irregular Lungs decreased breath sounds right>left ABd- soft,NT ND. BS+, ventral hernia+ no edema. Neuro- aox 3 PLAN For thoracocentesis today. Meds reviewed Restart coumadin tonight Bridge with heparin after procedure monitor lytes will follow physical therapy continue present care. Problem List - Problems (1) Pleural effusion, right Code(s): J90 - PLEURAL EFFUSION, NOT ELSEWHERE CLASSIFIED (2) Acute on chronic renal failure Code(s): N17.9 - ACUTE KIDNEY FAILURE, UNSPECIFIED; N18.9 - CHRONIC KIDNEY DISEASE, UNSPECIFIED (3) Afib Code(s): I48.91 - UNSPECIFIED ATRIAL FIBRILLATION Qualifiers: Atrial fibrillation type: chronic Qualified Code(s): I48.2 - Chronic atrial fibrillation (4) Anemia Code(s): D64.9 - ANEMIA, UNSPECIFIED Qualifiers: Anemia type: unspecified type Qualified Code(s): D64.9 - Anemia, unspecified (5) Breast cancer in male Code(s): C50.929 - MALIGNANT NEOPLASM OF UNSP SITE OF UNSPECIFIED MALE BREAST (6) Chronic kidney disease (CKD) Code(s): N18.9 - CHRONIC KIDNEY DISEASE, UNSPECIFIED Qualifiers: Chronic kidney disease stage: unspecified stage Qualified Code(s): N18.9 - Chronic kidney disease, unspecified (7) Status post coronary artery stent placement Code(s): Z95.5 - PRESENCE OF CORONARY ANGIOPLASTY IMPLANT AND GRAFT
--- NOTE | 2018-02-11 15:35 | PN ---
Progress Note, Physician History of Present Illness: pulmonary alert,no distress,s/p r thoracentesis tolerated procedure well w/o complications - Current Medication List Current Medications: Active Medications Amlodipine Besylate (Norvasc -) 5 mg PO DAILY [facility] Last Admin: 02/11/18 09:11 Dose: 5 mg Atorvastatin Calcium (Lipitor -) 10 mg PO HS [facility] Last Admin: 02/10/18 21:48 Dose: 10 mg Carvedilol (Coreg -) 25 mg PO BID [facility] Last Admin: 02/11/18 09:11 Dose: 25 mg Heparin Sodium (Porcine) (Heparin -) 1,000 unit IVPUSH PRN PRN PRN Reason: Heparin Heparin Sodium (Porcine) (Heparin -) 5,000 unit IVPUSH PRN PRN PRN Reason: Heparin Ceftriaxone Sodium 1 gm/ (Dextrose) 50 mls @ 100 mls/hr IVPB DAILY@0800 [facility] Last Admin: 02/11/18 09:10 Dose: 100 mls/hr Heparin Sodium/Dextrose (Heparin Infusion -) 25,000 units in 500 mls @ 20 mls/ hr IVPB TITR [facility]; Protocol Insulin Aspart (Novolog Vial Sliding Scale -) 1 vial SQ ACHS [facility]; Protocol Last Admin: 02/11/18 10:19 Dose: Not Given Pantoprazole Sodium (Protonix -) 40 mg PO DAILY [facility] Last Admin: 02/11/18 09:11 Dose: 40 mg Sertraline HCl (Zoloft -) 50 mg PO DAILY [facility] Last Admin: 02/11/18 09:11 Dose: 50 mg Tamsulosin HCl (Flomax -) 0.4 mg PO DAILY@0830 [facility] Last Admin: 02/11/18 09:10 Dose: 0.4 mg Warfarin Sodium (Coumadin -) 5 mg PO DAILY@1800 [facility] - Objective Vital Signs: Vital Signs Temperature 97.2 F L 02/11/18 14:20 Pulse Rate 63 02/11/18 11:09 Respiratory Rate 18 02/11/18 14:20 Blood Pressure 114/67 02/11/18 14:20 O2 Sat by Pulse Oximetry (%) 97 02/10/18 21:00 Constitutional: Yes: Well Nourished, Calm Eyes: Yes: WNL HENT: Yes: WNL Neck: Yes: WNL Cardiovascular: Yes: Pulse Irregular, S1, S2 Respiratory: Yes: Diminished Gastrointestinal: Yes: Normal Bowel Sounds, Soft Extremities: Yes: WNL Edema: No Labs: CBC, BMP 02/11/18 07:00 02/11/18 07:00 INR, PTT INR 1.57 (0.83-1.09) H 02/11/18 07:00 Problem List - Problems (1) Pleural effusion, right Code(s): J90 - PLEURAL EFFUSION, NOT ELSEWHERE CLASSIFIED (2) Acute on chronic congestive heart failure Code(s): I50.9 - HEART FAILURE, UNSPECIFIED (3) Acute on chronic renal failure Code(s): N17.9 - ACUTE KIDNEY FAILURE, UNSPECIFIED; N18.9 - CHRONIC KIDNEY DISEASE, UNSPECIFIED (4) Afib Code(s): I48.91 - UNSPECIFIED ATRIAL FIBRILLATION Qualifiers: Atrial fibrillation type: chronic Qualified Code(s): I48.2 - Chronic atrial fibrillation (5) Anemia Code(s): D64.9 - ANEMIA, UNSPECIFIED Qualifiers: Anemia type: unspecified type Qualified Code(s): D64.9 - Anemia, unspecified (6) Breast cancer in male Code(s): C50.929 - MALIGNANT NEOPLASM OF UNSP SITE OF UNSPECIFIED MALE BREAST (7) Coronary artery disease Code(s): I25.10 - ATHSCL HEART DISEASE OF [place] CORONARY ARTERY W/O ANG PCTRS Qualifiers: Coronary Disease-Associated Artery/Lesion type: [place] artery [place] vs. transplanted heart: [place] heart Associated angina: without angina Qualified Code(s): I25.10 - Atherosclerotic heart disease of [place] coronary artery without angina pectoris (8) Edema, peripheral Code(s): R60.9 - EDEMA, UNSPECIFIED (9) HTN (hypertension) Code(s): I10 - ESSENTIAL (PRIMARY) HYPERTENSION Qualifiers: Hypertension type: essential hypertension Qualified Code(s): I10 - Essential (primary) hypertension (10) Hyperlipidemia Code(s): E78.5 - HYPERLIPIDEMIA, UNSPECIFIED Qualifiers: Hyperlipidemia type: pure hypercholesterolemia Qualified Code(s): E78.00 - Pure hypercholesterolemia, unspecified; E78.0 - Pure hypercholesterolemia (11) Pulmonary hypertension Code(s): I27.2 - OTHER SECONDARY PULMONARY HYPERTENSION * DO NOT USE * (12) Sick sinus syndrome Code(s): I49.5 - SICK SINUS SYNDROME (13) Status post coronary artery stent placement Code(s): Z95.5 - PRESENCE OF CORONARY ANGIOPLASTY IMPLANT AND GRAFT (14) Supratherapeutic INR Code(s): R79.1 - ABNORMAL COAGULATION PROFILE (15) Type 2 diabetes mellitus Code(s): E11.9 - TYPE 2 DIABETES MELLITUS WITHOUT COMPLICATIONS Qualifiers: Diabetes mellitus complication status: with kidney complications Diabetes mellitus complication detail: with chronic kidney disease Chronic kidney disease stage: stage 3 (moderate) Assessment/Plan IMP ACUTE ON CHRONIC CHF BILATERAL EFFUSIONS R>L ? SECONDARY TO CHF,? MALIGNANT AFIB ASHD S/P STENTS S/P PPM ACUTE ON CHRONIC KIDNEY DISEASE H/O BREAST CA S/P R MASTECTOMY,S/P CHEMO PULMONARY HTN MITRAL AND TRICUSPID REGURG DM HTN HLD PLAN LASIX O2 DAILY WTS HOLD COUMADIN CHECK RESULTS OF PLEURAL FLUID MONITOR LYTES,RENAL FUNCTION DR AKINS Problem List - Problems (1) Pleural effusion, right Code(s): J90 - PLEURAL EFFUSION, NOT ELSEWHERE CLASSIFIED (2) Acute on chronic congestive heart failure Code(s): I50.9 - HEART FAILURE, UNSPECIFIED Qualifiers: Qualified Code(s): I50.43 - Acute on chronic combined systolic (congestive) and diastolic (congestive) heart failure (3) Acute on chronic renal failure Code(s): N17.9 - ACUTE KIDNEY FAILURE, UNSPECIFIED; N18.9 - CHRONIC KIDNEY DISEASE, UNSPECIFIED (4) Afib Code(s): I48.91 - UNSPECIFIED ATRIAL FIBRILLATION Qualifiers: Atrial fibrillation type: chronic Qualified Code(s): I48.2 - Chronic atrial fibrillation (5) Anemia Code(s): D64.9 - ANEMIA, UNSPECIFIED Qualifiers: Anemia type: unspecified type Qualified Code(s): D64.9 - Anemia, unspecified (6) Breast cancer in male Code(s): C50.929 - MALIGNANT NEOPLASM OF UNSP SITE OF UNSPECIFIED MALE BREAST (7) Coronary artery disease Code(s): I25.10 - ATHSCL HEART DISEASE OF [place] CORONARY ARTERY W/O ANG PCTRS Qualifiers: Coronary Disease-Associated Artery/Lesion type: [place] artery [place] vs. transplanted heart: [place] heart Associated angina: without angina Qualified Code(s): I25.10 - Atherosclerotic heart disease of [place] coronary artery without angina pectoris (8) Edema, peripheral Code(s): R60.9 - EDEMA, UNSPECIFIED (9) HTN (hypertension) Code(s): I10 - ESSENTIAL (PRIMARY) HYPERTENSION Qualifiers: Hypertension type: essential hypertension Qualified Code(s): I10 - Essential (primary) hypertension (10) Hyperlipidemia Code(s): E78.5 - HYPERLIPIDEMIA, UNSPECIFIED Qualifiers: Hyperlipidemia type: pure hypercholesterolemia (11) Pulmonary hypertension Code(s): I27.2 - OTHER SECONDARY PULMONARY HYPERTENSION * DO NOT USE * (12) Sick sinus syndrome Code(s): I49.5 - SICK SINUS SYNDROME (13) Status post coronary artery stent placement Code(s): Z95.5 - PRESENCE OF CORONARY ANGIOPLASTY IMPLANT AND GRAFT (14) Supratherapeutic INR Code(s): R79.1 - ABNORMAL COAGULATION PROFILE (15) Type 2 diabetes mellitus Code(s): E11.9 - TYPE 2 DIABETES MELLITUS WITHOUT COMPLICATIONS Qualifiers: Diabetes mellitus complication status: with kidney complications Diabetes mellitus complication detail: with chronic kidney disease Chronic kidney disease stage: stage 3 (moderate)
[2018-02-11] MEDS: HEPARIN INFUSION - 25,000 UNITS/500 ML INFUS.BAG IVPB SCH (16:33)
[2018-02-11 17:41] LABS: BF WBC & OTHER NUCLEATED CELLS 33 /mm3; BODY FLUID MACROPHAGES 10 %; BODY FLUID MONOCYTE 40 %; BODYL FLD EOSINOPHIL 2 %
--- NOTE | 2018-02-11 17:41 | PN ---
Progress Note, Physician History of Present Illness: Dyspnea improved after right thoracentesis. - Current Medication List Current Medications: Active Medications Amlodipine Besylate (Norvasc -) 5 mg PO DAILY [facility] Last Admin: 02/11/18 09:11 Dose: 5 mg Atorvastatin Calcium (Lipitor -) 10 mg PO HS [facility] Last Admin: 02/10/18 21:48 Dose: 10 mg Carvedilol (Coreg -) 25 mg PO BID [facility] Last Admin: 02/11/18 09:11 Dose: 25 mg Heparin Sodium (Porcine) (Heparin -) 1,000 unit IVPUSH PRN PRN PRN Reason: Heparin Heparin Sodium (Porcine) (Heparin -) 5,000 unit IVPUSH PRN PRN PRN Reason: Heparin Ceftriaxone Sodium 1 gm/ (Dextrose) 50 mls @ 100 mls/hr IVPB DAILY@0800 [facility] Last Admin: 02/11/18 09:10 Dose: 100 mls/hr Heparin Sodium/Dextrose (Heparin Infusion -) 25,000 units in 500 mls @ 20 mls/ hr IVPB TITR [facility]; Protocol Last Admin: 02/11/18 16:33 Dose: 1,000 units/hr, 20 mls/hr Insulin Aspart (Novolog Vial Sliding Scale -) 1 vial SQ ACHS [facility]; Protocol Last Admin: 02/11/18 16:52 Dose: Not Given Pantoprazole Sodium (Protonix -) 40 mg PO DAILY [facility] Last Admin: 02/11/18 09:11 Dose: 40 mg Sertraline HCl (Zoloft -) 50 mg PO DAILY [facility] Last Admin: 02/11/18 09:11 Dose: 50 mg Tamsulosin HCl (Flomax -) 0.4 mg PO DAILY@0830 [facility] Last Admin: 02/11/18 09:10 Dose: 0.4 mg Warfarin Sodium (Coumadin -) 5 mg PO DAILY@1800 [facility] - Objective Vital Signs: Vital Signs Temperature 97.2 F L 02/11/18 14:20 Pulse Rate 63 02/11/18 11:09 Respiratory Rate 18 02/11/18 14:20 Blood Pressure 114/67 02/11/18 14:20 O2 Sat by Pulse Oximetry (%) 97 02/10/18 21:00 Constitutional: Yes: No Distress, Calm, Thin Neck: Yes: Supple Cardiovascular: Yes: Regular Rate and Rhythm Respiratory: Yes: Regular, Diminished Gastrointestinal: Yes: Normal Bowel Sounds, Soft Edema: No Labs: CBC, BMP 02/11/18 07:00 02/11/18 07:00 INR, PTT INR 1.57 (0.83-1.09) H 02/11/18 07:00 Problem List - Problems (1) Pleural effusion, right Code(s): J90 - PLEURAL EFFUSION, NOT ELSEWHERE CLASSIFIED (2) Acute on chronic congestive heart failure Code(s): I50.9 - HEART FAILURE, UNSPECIFIED (3) Afib Code(s): I48.91 - UNSPECIFIED ATRIAL FIBRILLATION Qualifiers: Atrial fibrillation type: chronic Qualified Code(s): I48.2 - Chronic atrial fibrillation (4) Chronic kidney disease (CKD) Code(s): N18.9 - CHRONIC KIDNEY DISEASE, UNSPECIFIED Qualifiers: Chronic kidney disease stage: unspecified stage Qualified Code(s): N18.9 - Chronic kidney disease, unspecified (5) Coronary artery disease Code(s): I25.10 - ATHSCL HEART DISEASE OF [place] CORONARY ARTERY W/O ANG PCTRS Qualifiers: Coronary Disease-Associated Artery/Lesion type: [place] artery [place] vs. transplanted heart: [place] heart Associated angina: without angina Qualified Code(s): I25.10 - Atherosclerotic heart disease of [place] coronary artery without angina pectoris (6) HTN (hypertension) Code(s): I10 - ESSENTIAL (PRIMARY) HYPERTENSION Qualifiers: Hypertension type: essential hypertension Qualified Code(s): I10 - Essential (primary) hypertension (7) Hyperlipidemia Code(s): E78.5 - HYPERLIPIDEMIA, UNSPECIFIED Qualifiers: Hyperlipidemia type: pure hypercholesterolemia Qualified Code(s): E78.00 - Pure hypercholesterolemia, unspecified; E78.0 - Pure hypercholesterolemia (8) Pacemaker Code(s): Z95.0 - PRESENCE OF CARDIAC PACEMAKER (9) Sick sinus syndrome Code(s): I49.5 - SICK SINUS SYNDROME (10) Status post coronary artery stent placement Code(s): Z95.5 - PRESENCE OF CORONARY ANGIOPLASTY IMPLANT AND GRAFT (11) Systolic and diastolic CHF, acute on chronic Code(s): I50.43 - ACUTE ON CHRONIC COMBINED SYSTOLIC AND DIASTOLIC HRT FAIL (12) Type 2 diabetes mellitus Code(s): E11.9 - TYPE 2 DIABETES MELLITUS WITHOUT COMPLICATIONS Qualifiers: Diabetes mellitus complication status: with kidney complications Diabetes mellitus complication detail: with chronic kidney disease Chronic kidney disease stage: stage 3 (moderate) Assessment/Plan 1. Right pleural effusion with underlying history of breast CA s/p mastectomy and chemotherapy post thoracentesis 2. History of acute on chronic LV systolic dysfunction and class 2 NYHA classification LV failure 3. Persistent AF on NOAC, [id number] score of 6 4. HTN/HCVD 5. Hypercholesterolemia 6. DM 7. CAD, PCI/stent, angina pectoris 8. AV block s/p PPM 9. Mitral valve and tricuspid valve regurgitation 10. Acute on CKD with proteinuria PLAN: 1. Heparin -> coumadin per INR 2. F/u pleural effusion fluid studies 3. Continue Carvedilol 25 bid, Lipitor 10 qhs and Amlodipine 5 qd 4. Resume Valsartan and diuretics once renal function stabilizes 5. Complete empiric antibiotic coverage
[2018-02-11] MEDS: WARFARIN NA 5 MG TABLET (UD) PO SCH (17:58)
[2018-02-11] MEDS: ATORVASTATIN CA 10 MG TABLET (FP) PO SCH (22:25)
[2018-02-12] MEDS: INSULIN SLIDING SCALE (NOVOLOG) 1 VIAL SQ SCH ×4 (06:07→21:55)
[2018-02-12 09:06] LABS: BASO % 0.7 % (0-2.0); EOS % 1.5 % (0-4.5); HEMATOCRIT 31.7 % (35.4-49); HEMOGLOBIN 10.2 GM/dL (11.7-16.9); LYMPH % 15.8 % (8-40); MCH 30.6 pg (25.7-33.7); MCHC 32.1 g/dl (32.0-35.9); MEAN CELL VOLUME 95.3 fl (80-96); MEAN PLT VOLUME 8.3 fl (7.5-11.1); MONO % 9.8 % (3.8-10.2); NEUT % 72.2 % (42.8-82.8); PLATELET COUNT 115 K/MM3 (134-434); RBC 3.33 M/mm3 (4.00-5.60); RDW 16.4 % (11.9-15.9); WHITE BLOOD COUNT 5.2 K/mm3 (4.0-10.0)
[2018-02-12 09:17] LABS: INR 1.76 (0.83-1.09); PROTHROMBIN TIME (PATIENT) 20.9 SEC (9.7-13.0)
[2018-02-12] MEDS ORDERED: PT OWN MED DRAWER 7, Y5N ONE (09:25)
[2018-02-12] MEDS ORDERED: DEXTROSE 5%-WATER - 50 ML IVPB ONE (09:25)
[2018-02-12] MEDS ORDERED: cefTRIAXone SODIUM 1 GM VIAL ONE (09:25)
[2018-02-12] MEDS: PANTOPRAZOLE 40 MG TABLET (FP) PO SCH (09:29)
[2018-02-12] MEDS: SERTRALINE HCL 50 MG TABLET (FP) PO SCH (09:29)
[2018-02-12] MEDS: CEFTRIAXONE 1 GM in DEXTROSE 5%-WATER - 50 ML IVPB SCH (09:30)
[2018-02-12] MEDS: CARVEDILOL 25 MG TABLET (FP) PO SCH ×2 (09:30→21:54)
[2018-02-12] MEDS: amLODIPine BESYLATE 5 MG TABLET (FP) PO SCH (09:30)
[2018-02-12] MEDS: TAMSULOSIN HCL 0.4 MG CAP PO SCH (09:30)
[2018-02-12] MEDS: HEPARIN INFUSION - 25,000 UNITS/500 ML INFUS.BAG IVPB SCH (11:00)
[2018-02-12 11:19] LABS: ALBUMIN 1.9 g/dl (3.4-5.0); ALK PHOS 137 U/L (45-117); ANION GAP 9 MMOL/L (8-16); BILIRUBIN,TOTAL 0.4 mg/dL (0.2-1); BLOOD UREA NITROGEN 30 mg/dL (7-18); CHLORIDE 107 mmol/L (98-107); CO2 22 mmol/L (21-32); GLUCOSE,RANDOM 63 mg/dL (74-106); POTASSIUM 4.1 mmol/L (3.5-5.1); SGOT/AST 17 U/L (15-37); SGPT/ALT 12 U/L (13-61); SODIUM 138 mmol/L (136-145); TOT PROT 4.6 g/dl (6.4-8.2)
[2018-02-12 11:31] LABS: CALCIUM 6.9 mg/dL (8.5-10.1)
--- NOTE | 2018-02-12 12:06 | PN ---
Progress Note (short form) - Note Progress Note: Lying in bed off O2, comfortable. Denies CP or SOB. No acute events overnight. Intake & Output 02/09/18 02/10/18 02/11/18 02/12/18 23:59 23:59 23:59 23:59 Intake Total 850 890 490 200 Output Total 1200 450 Balance 850 -310 40 200 Weight 174 lb Last Vital Signs Temp Pulse Resp BP Pulse Ox 98.2 F 66 18 107/60 97 02/12/18 05:47 02/12/18 05:47 02/12/18 05:47 02/12/18 05:47 02/11/18 21:00 Active Medications Amlodipine Besylate (Norvasc -) 5 mg PO DAILY [facility] Last Admin: 02/12/18 09:30 Dose: 5 mg Atorvastatin Calcium (Lipitor -) 10 mg PO HS [facility] Last Admin: 02/11/18 22:25 Dose: 10 mg Carvedilol (Coreg -) 25 mg PO BID [facility] Last Admin: 02/12/18 09:30 Dose: 25 mg Heparin Sodium (Porcine) (Heparin -) 1,000 unit IVPUSH PRN PRN PRN Reason: Heparin Heparin Sodium (Porcine) (Heparin -) 5,000 unit IVPUSH PRN PRN PRN Reason: Heparin Ceftriaxone Sodium 1 gm/ (Dextrose) 50 mls @ 100 mls/hr IVPB DAILY@0800 [facility] Last Admin: 02/12/18 09:30 Dose: 100 mls/hr Heparin Sodium/Dextrose (Heparin Infusion -) 25,000 units in 500 mls @ 20 mls/ hr IVPB TITR [facility]; Protocol Last Admin: 02/12/18 11:00 Dose: 650 units/hr, 13 mls/hr Insulin Aspart (Novolog Vial Sliding Scale -) 1 vial SQ ACHS [facility]; Protocol Last Admin: 02/12/18 06:07 Dose: Not Given Pantoprazole Sodium (Protonix -) 40 mg PO DAILY [facility] Last Admin: 02/12/18 09:29 Dose: 40 mg Sertraline HCl (Zoloft -) 50 mg PO DAILY [facility] Last Admin: 02/12/18 09:29 Dose: 50 mg Tamsulosin HCl (Flomax -) 0.4 mg PO DAILY@0830 [facility] Last Admin: 02/12/18 09:30 Dose: 0.4 mg Warfarin Sodium (Coumadin -) 5 mg PO DAILY@1800 [facility] Last Admin: 02/11/18 17:58 Dose: 5 mg Constitutional: Yes: NAD Eyes: Yes: WNL HENT: Yes: WNL Neck: Yes: WNL Cardiovascular: Yes: Pulse Irregular, S1, S2 Respiratory: Yes: Diminished at the bases Gastrointestinal: Yes: Normal Bowel Sounds, Soft Extremities: Yes: WNL Edema: No Labs: Laboratory Results - last 24 hr 02/11/18 02/11/18 02/11/18 14:00 15:10 16:50 WBC RBC Hgb Hct MCV MCH MCHC RDW Plt Count MPV Absolute Neuts (auto) Neutrophils % Lymphocytes % Monocytes % Eosinophils % Basophils % Nucleated RBC % PT with INR INR PTT (Actin FS) 37.8 H Sodium Potassium Chloride Carbon Dioxide Anion Gap BUN Creatinine Creat Clearance w eGFR POC Glucometer 72 Random Glucose Calcium Total Bilirubin AST ALT Alkaline Phosphatase Total Protein Albumin Fluid Source Pleural fluid Fluid WBC 33 Fluid RBC 563 Fluid Neutrophils 16 Fluid Lymphocytes 36 Pleural Monocytes 40 Pleural Eosinophils 2 Pleural Macrophages 10 02/11/18 02/11/18 02/12/18 22:30 22:32 05:30 WBC RBC Hgb Hct MCV MCH MCHC RDW Plt Count MPV Absolute Neuts (auto) Neutrophils % Lymphocytes % Monocytes % Eosinophils % Basophils % Nucleated RBC % PT with INR INR PTT (Actin FS) 80.5 H Sodium Potassium Chloride Carbon Dioxide Anion Gap BUN Creatinine Creat Clearance w eGFR POC Glucometer 88 88 Random Glucose Calcium Total Bilirubin AST ALT Alkaline Phosphatase Total Protein Albumin Fluid Source Fluid WBC Fluid RBC Fluid Neutrophils Fluid Lymphocytes Pleural Monocytes Pleural Eosinophils Pleural Macrophages 02/12/18 02/12/18 02/12/18 08:50 08:50 08:50 WBC 5.2 RBC 3.33 L Hgb 10.2 L Hct 31.7 L MCV 95.3 MCH 30.6 MCHC 32.1 RDW 16.4 H Plt Count 115 L MPV 8.3 Absolute Neuts (auto) 3.8 Neutrophils % 72.2 Lymphocytes % 15.8 Monocytes % 9.8 Eosinophils % 1.5 D Basophils % 0.7 Nucleated RBC % 0 PT with INR 20.90 H INR 1.76 H PTT (Actin FS) Sodium 138 Potassium 4.1 Chloride 107 Carbon Dioxide 22 Anion Gap 9 BUN 30 H Creatinine 2.0 H Creat Clearance w eGFR 32.23 POC Glucometer Random Glucose 63 L Calcium 6.9 L* Total Bilirubin 0.4 AST 17 ALT 12 L Alkaline Phosphatase 137 H Total Protein 4.6 L Albumin 1.9 L Fluid Source Fluid WBC Fluid RBC Fluid Neutrophils Fluid Lymphocytes Pleural Monocytes Pleural Eosinophils Pleural Macrophages 02/12/18 08:50 WBC RBC Hgb Hct MCV MCH MCHC RDW Plt Count MPV Absolute Neuts (auto) Neutrophils % Lymphocytes % Monocytes % Eosinophils % Basophils % Nucleated RBC % PT with INR INR PTT (Actin FS) 191.0 H Sodium Potassium Chloride Carbon Dioxide Anion Gap BUN Creatinine Creat Clearance w eGFR POC Glucometer Random Glucose Calcium Total Bilirubin AST ALT Alkaline Phosphatase Total Protein Albumin Fluid Source Fluid WBC Fluid RBC Fluid Neutrophils Fluid Lymphocytes Pleural Monocytes Pleural Eosinophils Pleural Macrophages Problem List - Problems (1) Pleural effusion, right Code(s): J90 - PLEURAL EFFUSION, NOT ELSEWHERE CLASSIFIED (2) Acute on chronic congestive heart failure Code(s): I50.9 - HEART FAILURE, UNSPECIFIED (3) Acute on chronic renal failure Code(s): N17.9 - ACUTE KIDNEY FAILURE, UNSPECIFIED; N18.9 - CHRONIC KIDNEY DISEASE, UNSPECIFIED (4) Afib Code(s): I48.91 - UNSPECIFIED ATRIAL FIBRILLATION Qualifiers: Atrial fibrillation type: chronic Qualified Code(s): I48.2 - Chronic atrial fibrillation (5) Anemia Code(s): D64.9 - ANEMIA, UNSPECIFIED Qualifiers: Anemia type: unspecified type Qualified Code(s): D64.9 - Anemia, unspecified (6) Breast cancer in male Code(s): C50.929 - MALIGNANT NEOPLASM OF UNSP SITE OF UNSPECIFIED MALE BREAST (7) Coronary artery disease Code(s): I25.10 - ATHSCL HEART DISEASE OF [place] CORONARY ARTERY W/O ANG PCTRS Qualifiers: Coronary Disease-Associated Artery/Lesion type: [place] artery [place] vs. transplanted heart: [place] heart Associated angina: without angina Qualified Code(s): I25.10 - Atherosclerotic heart disease of [place] coronary artery without angina pectoris (8) Edema, peripheral Code(s): R60.9 - EDEMA, UNSPECIFIED (9) HTN (hypertension) Code(s): I10 - ESSENTIAL (PRIMARY) HYPERTENSION Qualifiers: Hypertension type: essential hypertension Qualified Code(s): I10 - Essential (primary) hypertension (10) Hyperlipidemia Code(s): E78.5 - HYPERLIPIDEMIA, UNSPECIFIED Qualifiers: Hyperlipidemia type: pure hypercholesterolemia Qualified Code(s): E78.00 - Pure hypercholesterolemia, unspecified; E78.0 - Pure hypercholesterolemia (11) Pulmonary hypertension Code(s): I27.2 - OTHER SECONDARY PULMONARY HYPERTENSION * DO NOT USE * (12) Sick sinus syndrome Code(s): I49.5 - SICK SINUS SYNDROME (13) Status post coronary artery stent placement Code(s): Z95.5 - PRESENCE OF CORONARY ANGIOPLASTY IMPLANT AND GRAFT (14) Supratherapeutic INR Code(s): R79.1 - ABNORMAL COAGULATION PROFILE (15) Type 2 diabetes mellitus Code(s): E11.9 - TYPE 2 DIABETES MELLITUS WITHOUT COMPLICATIONS Qualifiers: Diabetes mellitus complication status: with kidney complications Diabetes mellitus complication detail: with chronic kidney disease Chronic kidney disease stage: stage 3 (moderate) Assessment/Plan IMP ACUTE ON CHRONIC CHF BILATERAL EFFUSIONS R>L ? SECONDARY TO CHF,? MALIGNANT AFIB ASHD S/P STENTS S/P PPM ACUTE ON CHRONIC KIDNEY DISEASE H/O BREAST CA S/P R MASTECTOMY,S/P CHEMO PULMONARY HTN MITRAL AND TRICUSPID REGURG DM HTN HLD PLAN LASIX O2 DAILY WTS FOLLOW RESULTS OF PLEURAL FLUID ABX AC WITH IV HEPRAIN AND COUMADIN DR HART
--- NOTE | 2018-02-12 12:08 | PN ---
Progress Note (short form) - Note Progress Note: pt seen/ examined awake/ comfortable denies pain s/p thoracocentesis yesterday Vital Signs Temp 98.2 F 02/12/18 05:47 Pulse 66 02/12/18 05:47 Resp 18 02/12/18 05:47 BP 107/60 02/12/18 05:47 Pulse Ox 97 02/11/18 21:00 Intake & Output 02/11/18 02/12/18 02/12/18 23:59 11:59 23:59 Intake Total 250 200 Output Total 250 Balance 0 200 Weight 174 lb Intake: IVPB 50 Oral 200 200 Output: Urine 250 Void 250 Other: Voiding Method Urinal Urinal # Unmeasured Voids Void 1 2 Bowel Movement Yes # Bowel Movements 1 Height 5 ft 9 in Body Mass Index (BMI) 25.7 Active Medications Amlodipine Besylate (Norvasc -) 5 mg PO DAILY [facility] Last Admin: 02/12/18 09:30 Dose: 5 mg Atorvastatin Calcium (Lipitor -) 10 mg PO HS [facility] Last Admin: 02/11/18 22:25 Dose: 10 mg Carvedilol (Coreg -) 25 mg PO BID [facility] Last Admin: 02/12/18 09:30 Dose: 25 mg Heparin Sodium (Porcine) (Heparin -) 1,000 unit IVPUSH PRN PRN PRN Reason: Heparin Heparin Sodium (Porcine) (Heparin -) 5,000 unit IVPUSH PRN PRN PRN Reason: Heparin Ceftriaxone Sodium 1 gm/ (Dextrose) 50 mls @ 100 mls/hr IVPB DAILY@0800 [facility] Last Admin: 02/12/18 09:30 Dose: 100 mls/hr Heparin Sodium/Dextrose (Heparin Infusion -) 25,000 units in 500 mls @ 20 mls/ hr IVPB TITR [facility]; Protocol Last Admin: 02/12/18 11:00 Dose: 650 units/hr, 13 mls/hr Insulin Aspart (Novolog Vial Sliding Scale -) 1 vial SQ ACHS [facility]; Protocol Last Admin: 02/12/18 06:07 Dose: Not Given Pantoprazole Sodium (Protonix -) 40 mg PO DAILY [facility] Last Admin: 02/12/18 09:29 Dose: 40 mg Sertraline HCl (Zoloft -) 50 mg PO DAILY [facility] Last Admin: 02/12/18 09:29 Dose: 50 mg Tamsulosin HCl (Flomax -) 0.4 mg PO DAILY@0830 [facility] Last Admin: 02/12/18 09:30 Dose: 0.4 mg Warfarin Sodium (Coumadin -) 5 mg PO DAILY@1800 [facility] Last Admin: 02/11/18 17:58 Dose: 5 mg CBC, BMP 02/12/18 08:50 02/12/18 08:50 Physical Exam. awake/ comfortable S1 S2 Irregular Lungs decreased breath sounds -- better ABd- soft,NT ND. BS+, ventral hernia+ no edema. Neuro- aox 3 PLAN s/p thoracocentesis. Meds reviewed Restarted coumadin Bridged with heparin after procedure monitor lytes cr remains elevated [place] held will consult renal abx will follow physical therapy continue present care. Problem List - Problems (1) Pleural effusion, right Code(s): J90 - PLEURAL EFFUSION, NOT ELSEWHERE CLASSIFIED (2) Acute on chronic renal failure Code(s): N17.9 - ACUTE KIDNEY FAILURE, UNSPECIFIED; N18.9 - CHRONIC KIDNEY DISEASE, UNSPECIFIED (3) Afib Code(s): I48.91 - UNSPECIFIED ATRIAL FIBRILLATION Qualifiers: Atrial fibrillation type: chronic Qualified Code(s): I48.2 - Chronic atrial fibrillation (4) Anemia Code(s): D64.9 - ANEMIA, UNSPECIFIED Qualifiers: Anemia type: unspecified type Qualified Code(s): D64.9 - Anemia, unspecified (5) Breast cancer in male Code(s): C50.929 - MALIGNANT NEOPLASM OF UNSP SITE OF UNSPECIFIED MALE BREAST (6) Chronic kidney disease (CKD) Code(s): N18.9 - CHRONIC KIDNEY DISEASE, UNSPECIFIED Qualifiers: Chronic kidney disease stage: unspecified stage Qualified Code(s): N18.9 - Chronic kidney disease, unspecified (7) Status post coronary artery stent placement Code(s): Z95.5 - PRESENCE OF CORONARY ANGIOPLASTY IMPLANT AND GRAFT Problem List - Problems (1) Pleural effusion, right Code(s): J90 - PLEURAL EFFUSION, NOT ELSEWHERE CLASSIFIED (2) Acute on chronic renal failure Code(s): N17.9 - ACUTE KIDNEY FAILURE, UNSPECIFIED; N18.9 - CHRONIC KIDNEY DISEASE, UNSPECIFIED (3) Afib Code(s): I48.91 - UNSPECIFIED ATRIAL FIBRILLATION Qualifiers: Atrial fibrillation type: chronic Qualified Code(s): I48.2 - Chronic atrial fibrillation (4) Anemia Code(s): D64.9 - ANEMIA, UNSPECIFIED Qualifiers: Anemia type: unspecified type Qualified Code(s): D64.9 - Anemia, unspecified (5) Breast cancer in male Code(s): C50.929 - MALIGNANT NEOPLASM OF UNSP SITE OF UNSPECIFIED MALE BREAST (6) Chronic kidney disease (CKD) Code(s): N18.9 - CHRONIC KIDNEY DISEASE, UNSPECIFIED Qualifiers: Chronic kidney disease stage: unspecified stage Qualified Code(s): N18.9 - Chronic kidney disease, unspecified (7) Status post coronary artery stent placement Code(s): Z95.5 - PRESENCE OF CORONARY ANGIOPLASTY IMPLANT AND GRAFT
--- NOTE | 2018-02-12 13:31 | CONSULT ---
Consult Consult Specialty:: Nephrology ( Jose C/ Mookie) Reason for Consultation:: Abnormal kidney functions, Low serum Calcium - History of Present Illness Chief Complaint: 82 yo M PMH CAD s/p PCI stent, s/p PPM, AFib on Warfarin, HTN, HLD, Anemia, CHF, DM, breast CA s/p R mastectomy, gout, CKD, Right sided hernia , bloating, and SOB x2wks but acutely worsening x2d. Pt had LE edema. CXR: R side opacification. CT chest: Very large Right pleural effusion, small L pleural effusion. The patient had thoracentesis yesteday, and 2 lit of fluid removal. - History Source History Provided By: Patient, Medical Record - Past Medical History Cardio/Vascular: Yes: AFIB, CAD, CHF, HTN, Hyperlipdemia, Mitral Insufficiency, Pulmonary Hypertension, Other (LV systolic dysfunction with class 2 NYHA classification LV failure) Renal/: Yes: Renal Inusuff Endocrine: Yes: Diabetes Mellitus - Past Surgical History Past Surgical History: Yes: Mastectomy, Permanent Pacemaker - Alcohol/Substance Use Hx Alcohol Use: No - Smoking History Smoking history: Never smoked Have you smoked in the past 12 months: No Aproximately how many cigarettes per day: 0 Home Medications - Allergies Allergies/Adverse Reactions: Allergies Allergy/AdvReac Type Severity Reaction Status Date / Time levofloxacin [From Levaquin] Allergy Rash Verified 02/07/18 16:18 - Home Medications Home Medications: Ambulatory Orders Colchicine [Colcrys] 0.6 mg PO DAILY 03/27/15 Pantoprazole Sodium [Protonix] 40 mg PO DAILY 03/27/15 Sertraline HCl [Zoloft -] 50 mg PO DAILY 03/27/15 Simvastatin [Zocor -] 20 mg PO HS 03/27/15 Amlodipine Besylate [Norvasc -] 5 mg PO DAILY #30 tablet 09/27/15 Carvedilol [Coreg -] 25 mg PO BID #60 tablet 09/27/15 Furosemide [Lasix -] 40 mg PO DAILY #30 tablet 09/27/15 Polyethylene Glycol 3350 [Miralax 119 gm Btl -] 17 gm PO DAILY PRN #1 bottle Valsartan [Diovan] 160 mg PO DAILY #30 tablet 09/27/15 Warfarin Na [Coumadin -] 5 mg PO DAILY@1800 #30 tablet 09/27/15 Family Disease History - Family Disease History Other Family History: CAD Review of Systems - Review of Systems Constitutional: reports: No Symptoms, Lethargy HENT: reports: No Symptoms, Throat Pain Cardiovascular: reports: Shortness of Breath. denies: Chest Pain Respiratory: reports: Cough Genitourinary: denies: Burning Breasts: reports: Other (h/o Ca breast) Musculoskeletal: reports: No Symptoms Physical Exam Vital Signs: Vital Signs Temperature 98.2 F 02/12/18 05:47 Pulse Rate 66 02/12/18 05:47 Respiratory Rate 18 02/12/18 05:47 Blood Pressure 107/60 02/12/18 05:47 O2 Sat by Pulse Oximetry (%) 97 02/11/18 21:00 Constitutional: Yes: No Distress, Calm, Pallor Eyes: Yes: Conjunctiva Clear HENT: Yes: Normocephalic Neck: Yes: Trachea Midline Cardiovascular: Yes: Bradycardia, Tachycardia, Pulse Irregular, S1, S2 Respiratory: Yes: CTA Bilaterally, Diminished, Poor Air Entry Gastrointestinal: Yes: Normal Bowel Sounds, Soft Renal/: No: Bladder Distention, CVA Tenderness - Left, CVA Tenderness - Right Labs: CBC, BMP 02/12/18 08:50 02/12/18 08:50 Problem List - Problems (1) Pleural effusion, right Code(s): J90 - PLEURAL EFFUSION, NOT ELSEWHERE CLASSIFIED (2) Acute on chronic congestive heart failure Code(s): I50.9 - HEART FAILURE, UNSPECIFIED (3) Acute on chronic renal failure Code(s): N17.9 - ACUTE KIDNEY FAILURE, UNSPECIFIED; N18.9 - CHRONIC KIDNEY DISEASE, UNSPECIFIED (4) Anemia Code(s): D64.9 - ANEMIA, UNSPECIFIED Qualifiers: Anemia type: unspecified type Qualified Code(s): D64.9 - Anemia, unspecified (5) Ascites Code(s): R18.8 - OTHER ASCITES Qualifiers: Ascites type: other type Qualified Code(s): R18.8 - Other ascites (6) Breast cancer in male Code(s): C50.929 - MALIGNANT NEOPLASM OF UNSP SITE OF UNSPECIFIED MALE BREAST (7) Chronic kidney disease (CKD) Code(s): N18.9 - CHRONIC KIDNEY DISEASE, UNSPECIFIED Qualifiers: Chronic kidney disease stage: unspecified stage Qualified Code(s): N18.9 - Chronic kidney disease, unspecified (8) Coronary artery disease Code(s): I25.10 - ATHSCL HEART DISEASE OF [place] CORONARY ARTERY W/O ANG PCTRS Qualifiers: Coronary Disease-Associated Artery/Lesion type: [place] artery [place] vs. transplanted heart: [place] heart Associated angina: without angina Qualified Code(s): I25.10 - Atherosclerotic heart disease of [place] coronary artery without angina pectoris (9) HTN (hypertension) Code(s): I10 - ESSENTIAL (PRIMARY) HYPERTENSION Qualifiers: Hypertension type: essential hypertension Qualified Code(s): I10 - Essential (primary) hypertension (10) Hyperlipidemia Code(s): E78.5 - HYPERLIPIDEMIA, UNSPECIFIED Qualifiers: Hyperlipidemia type: pure hypercholesterolemia Qualified Code(s): E78.00 - Pure hypercholesterolemia, unspecified; E78.0 - Pure hypercholesterolemia (11) Pacemaker Code(s): Z95.0 - PRESENCE OF CARDIAC PACEMAKER Assessment/Plan 82 yo M PMH CAD s/p PCI stent, s/p PPM, AFib on Warfarin, HTN, HLD, Anemia, CHF , DM, breast CA s/p R mastectomy, gout, CKD, Right sided hernia, bloating, and SOB x2wks but acutely worsening x2d. Pt had LE edema. CXR: R side opacification. CT chest: Very large Right pleural effusion, small L pleural effusion. The patient had thoracentesis and 2 lit of fluid removal. IMP: Acute Kidney Injury, superimposed on CKD. The MINOO is hemodynamic due to altered hemodynamics, resulting in renal hypoperfusion. Hypocalcemia... in the presence of severe Hypoalbuminemia. Corrected Serum Calcium in acceptable range. Nutritional deficiency a major factor. There is no indication at this point to start the patient on any Calcium supplements. It is highly unlikely that the patient will become symptomatic from the apparent Hypocalcemia. Will monitor the renal / electrolyte profile with you. No specific interventions suggested at this point. Will check Serum Mg. Thank you. Nela Woodall MD
--- NOTE | 2018-02-12 13:46 | PN ---
Progress Note (short form) - Note Progress Note: Chief Complaint: Events noted, notes reviewed, dyspnea improved, denies any chest pain History of Present Illness: Patient seen and examined. Events noted, notes reviewed, dyspnea improved, denies any chest pain - Current Medication List Current Medications: Active Medications Current Medications Amlodipine Besylate (Norvasc -) 5 mg PO DAILY [facility] Last Admin: 02/12/18 09:30 Dose: 5 mg Atorvastatin Calcium (Lipitor -) 10 mg PO HS [facility] Last Admin: 02/11/18 22:25 Dose: 10 mg Carvedilol (Coreg -) 25 mg PO BID [facility] Last Admin: 02/12/18 09:30 Dose: 25 mg Heparin Sodium (Porcine) (Heparin -) 1,000 unit IVPUSH PRN PRN PRN Reason: Heparin Heparin Sodium (Porcine) (Heparin -) 5,000 unit IVPUSH PRN PRN PRN Reason: Heparin Ceftriaxone Sodium 1 gm/ (Dextrose) 50 mls @ 100 mls/hr IVPB DAILY@0800 [facility] Last Admin: 02/12/18 09:30 Dose: 100 mls/hr Heparin Sodium/Dextrose (Heparin Infusion -) 25,000 units in 500 mls @ 20 mls/ hr IVPB TITR [facility]; Protocol Last Admin: 02/12/18 11:00 Dose: 650 units/hr, 13 mls/hr Insulin Aspart (Novolog Vial Sliding Scale -) 1 vial SQ ACHS [facility]; Protocol Last Admin: 02/12/18 12:44 Dose: Not Given Pantoprazole Sodium (Protonix -) 40 mg PO DAILY [facility] Last Admin: 02/12/18 09:29 Dose: 40 mg Sertraline HCl (Zoloft -) 50 mg PO DAILY [facility] Last Admin: 02/12/18 09:29 Dose: 50 mg Tamsulosin HCl (Flomax -) 0.4 mg PO DAILY@0830 [facility] Last Admin: 02/12/18 09:30 Dose: 0.4 mg Warfarin Sodium (Coumadin -) 5 mg PO DAILY@1800 [facility] Last Admin: 02/11/18 17:58 Dose: 5 mg - Review of Systems Constitutional: denies: Chills, Fever Cardiovascular: As noted above Respiratory: denies: Cough or Sputum Production Gastrointestinal: denies: Nausea, Vomiting, Diarrhea, Constipation or Abdominal Pain Genitourinary: denies: Dysuria, Hematuria Neurological: denies: Dizziness - Objective Vital Signs: Last Vital Signs Temp Pulse Resp BP Pulse Ox 98.2 F 66 18 107/60 97 02/12/18 05:47 02/12/18 05:47 02/12/18 05:47 02/12/18 05:47 02/11/18 21:00 Intake & Output 02/09/18 02/10/18 02/11/18 02/12/18 23:59 23:59 23:59 23:59 Intake Total 850 890 490 200 Output Total 1200 450 100 Balance 850 -310 40 100 Weight 174 lb Neck: Supple Negative JVD Cardiovascular: S1 S2 Regularly Rate and Rhythm Respiratory: diminished Breath Sounds Bilaterally Gastrointestinal: Soft Benign Normal Bowel Sounds Ext: negative Edema Labs: CBC, BMP 02/12/18 08:50 02/12/18 08:50 Hepatic Panel Total Bilirubin 0.4 mg/dL (0.2-1) 02/12/18 08:50 AST 17 U/L (15-37) 02/12/18 08:50 ALT 12 U/L (13-61) L 02/12/18 08:50 Alkaline Phosphatase 137 U/L (45-117) H 02/12/18 08:50 Albumin 1.9 g/dl (3.4-5.0) L 02/12/18 08:50 INR, PTT INR 1.76 (0.83-1.09) H 02/12/18 08:50 Assessment/Plan ASSESSMENT: 1. Right pleural effusion with underlying history of breast CA post mastectomy and chemotherapy post thoracentesis 2. Acute on chronic class II NYHA classification LV failure related LV systolic dysfunction, resolved 3. CAD post PCI/stent angina pectoris 4. Persistent atrial fibrillation on A/C, [id number] score of 6 5. AV block s/p PPM 6. Mitral valve and tricuspid valve regurgitation 7. HTN/HCVD 8. DM 9. Hypercholesterolemia 10. Acute on CKD PLAN: 1. Continue A/C with Heparin and Coumadin as per INR 2. Continue Carvedilol 3. Continue Amlodipine 4. Continue Lipitor 5. Resume Valsartan and diuretics once renal function stabilizes/at baseline with close monitoring of renal function 6. Antibiotic coverage as per the primary team Adriel Phoenix M.D.
[2018-02-12 18:45] LABS: INR 1.83 (0.83-1.09); PROTHROMBIN TIME (PATIENT) 21.7 SEC (9.7-13.0)
[2018-02-12] MEDS: WARFARIN NA 5 MG TABLET (UD) PO SCH (18:48)
[2018-02-12 18:56] LABS: ACTIVATED PTT 78.5 SECONDS (25.2-36.5)
[2018-02-12] MEDS: ATORVASTATIN CA 10 MG TABLET (FP) PO SCH (21:54)
[2018-02-13] MEDS: INSULIN SLIDING SCALE (NOVOLOG) 1 VIAL SQ SCH ×4 (06:02→22:22)
--- NOTE | 2018-02-13 09:29 | PN ---
Progress Note, Physician Chief Complaint: The patient seen in his room, lying comfortably in bed. Maintains good urine output. "I want to go home". Seems to be comfortable. History of Present Illness: 82 yo M PMH CAD s/p PCI stent, s/p PPM, AFib on Warfarin, HTN, HLD, Anemia, CHF , DM, breast CA s/p R mastectomy, gout, CKD, Right sided hernia, LE edema. CXR: R side opacification. CT chest: Very large Right pleural effusion, small L pleural effusion. The patient had thoracentesis 2 lit of fluid removal. Renal functions acutely worsened - Current Medication List Current Medications: Active Medications Amlodipine Besylate (Norvasc -) 5 mg PO DAILY [facility] Last Admin: 02/12/18 09:30 Dose: 5 mg Atorvastatin Calcium (Lipitor -) 10 mg PO HS [facility] Last Admin: 02/12/18 21:54 Dose: 10 mg Carvedilol (Coreg -) 25 mg PO BID [facility] Last Admin: 02/12/18 21:54 Dose: 25 mg Heparin Sodium (Porcine) (Heparin -) 1,000 unit IVPUSH PRN PRN PRN Reason: Heparin Heparin Sodium (Porcine) (Heparin -) 5,000 unit IVPUSH PRN PRN PRN Reason: Heparin Ceftriaxone Sodium 1 gm/ (Dextrose) 50 mls @ 100 mls/hr IVPB DAILY@0800 [facility] Last Admin: 02/12/18 09:30 Dose: 100 mls/hr Heparin Sodium/Dextrose (Heparin Infusion -) 25,000 units in 500 mls @ 20 mls/ hr IVPB TITR [facility]; Protocol Last Titration: 02/12/18 18:59 Dose: 600 units/hr, 12 mls/hr Insulin Aspart (Novolog Vial Sliding Scale -) 1 vial SQ ACHS [facility]; Protocol Last Admin: 02/13/18 06:02 Dose: Not Given Pantoprazole Sodium (Protonix -) 40 mg PO DAILY [facility] Last Admin: 02/12/18 09:29 Dose: 40 mg Sertraline HCl (Zoloft -) 50 mg PO DAILY [facility] Last Admin: 02/12/18 09:29 Dose: 50 mg Tamsulosin HCl (Flomax -) 0.4 mg PO DAILY@0830 [facility] Last Admin: 02/12/18 09:30 Dose: 0.4 mg Warfarin Sodium (Coumadin -) 5 mg PO DAILY@1800 [facility] Last Admin: 02/12/18 18:48 Dose: 5 mg - Objective Vital Signs: Vital Signs Temperature 97.8 F 02/12/18 21:50 Pulse Rate 70 02/13/18 05:02 Respiratory Rate 18 02/13/18 05:02 Blood Pressure 107/56 L 02/13/18 05:02 O2 Sat by Pulse Oximetry (%) 97 02/12/18 09:00 Constitutional: Yes: Anxious, Mild Distress Eyes: Yes: Conjunctiva Clear HENT: Yes: Normocephalic Neck: Yes: Trachea Midline Respiratory: Yes: Diminished, Dullness, Poor Air Entry Gastrointestinal: Yes: Normal Bowel Sounds, Soft Genitourinary: No: Bladder Distention, CVA Tenderness - Left, CVA Tenderness - Right, Hematuria Edema: Yes Edema: LLE: 1+, RLE: 1+ Neurological: Yes: Alert, Confusion Labs: INR, PTT INR 1.83 (0.83-1.09) H 02/12/18 17:36 Problem List - Problems (1) Pleural effusion, right Code(s): J90 - PLEURAL EFFUSION, NOT ELSEWHERE CLASSIFIED (2) Acute on chronic congestive heart failure Code(s): I50.9 - HEART FAILURE, UNSPECIFIED (3) Acute on chronic renal failure Code(s): N17.9 - ACUTE KIDNEY FAILURE, UNSPECIFIED; N18.9 - CHRONIC KIDNEY DISEASE, UNSPECIFIED (4) Anemia Code(s): D64.9 - ANEMIA, UNSPECIFIED Qualifiers: Anemia type: unspecified type Qualified Code(s): D64.9 - Anemia, unspecified (5) Ascites Code(s): R18.8 - OTHER ASCITES Qualifiers: Ascites type: other type Qualified Code(s): R18.8 - Other ascites (6) Breast cancer in male Code(s): C50.929 - MALIGNANT NEOPLASM OF UNSP SITE OF UNSPECIFIED MALE BREAST (7) Chronic kidney disease (CKD) Code(s): N18.9 - CHRONIC KIDNEY DISEASE, UNSPECIFIED Qualifiers: Chronic kidney disease stage: unspecified stage Qualified Code(s): N18.9 - Chronic kidney disease, unspecified (8) Coronary artery disease Code(s): I25.10 - ATHSCL HEART DISEASE OF [place] CORONARY ARTERY W/O ANG PCTRS Qualifiers: Coronary Disease-Associated Artery/Lesion type: [place] artery [place] vs. transplanted heart: [place] heart Associated angina: without angina Qualified Code(s): I25.10 - Atherosclerotic heart disease of [place] coronary artery without angina pectoris (9) HTN (hypertension) Code(s): I10 - ESSENTIAL (PRIMARY) HYPERTENSION Qualifiers: Hypertension type: essential hypertension Qualified Code(s): I10 - Essential (primary) hypertension (10) Hyperlipidemia Code(s): E78.5 - HYPERLIPIDEMIA, UNSPECIFIED Qualifiers: Hyperlipidemia type: pure hypercholesterolemia Qualified Code(s): E78.00 - Pure hypercholesterolemia, unspecified; E78.0 - Pure hypercholesterolemia (11) Pacemaker Code(s): Z95.0 - PRESENCE OF CARDIAC PACEMAKER Assessment/Plan 82 yo M PMH CAD s/p PCI stent, s/p PPM, AFib on Warfarin, HTN, HLD, Anemia, CHF , DM, breast CA s/p R mastectomy, gout, CKD, Right sided hernia, bloating, and SOB. Pt had LE edema. The patient had thoracentesis and 2 lit of fluid removed. IMP: Acute Kidney Injury, superimposed on CKD. The MINOO is hemodynamic due to altered hemodynamics, resulting in renal hypoperfusion. Today's labs pending. Hypocalcemia... in the presence of severe Hypoalbuminemia. Corrected Serum Calcium in acceptable range. Nutritional deficiency a major factor. There is no indication at this point to start the patient on any Calcium supplements. It is highly unlikely that the patient will become symptomatic from the apparent Hypocalcemia. Will monitor the renal / electrolyte profile with you. No specific interventions suggested at this point. Serum Mg pending. Will follow Nela Woodall MD
[2018-02-13] MEDS ORDERED: cefTRIAXone SODIUM 1 GM VIAL ONE (11:05)
[2018-02-13] MEDS ORDERED: DEXTROSE 5%-WATER - 50 ML IVPB ONE (11:06)
[2018-02-13] MEDS: CEFTRIAXONE 1 GM in DEXTROSE 5%-WATER - 50 ML IVPB SCH (11:07)
[2018-02-13] MEDS: CARVEDILOL 25 MG TABLET (FP) PO SCH ×2 (11:08→22:20)
[2018-02-13] MEDS: PANTOPRAZOLE 40 MG TABLET (FP) PO SCH (11:08)
[2018-02-13] MEDS: TAMSULOSIN HCL 0.4 MG CAP PO SCH (11:08)
[2018-02-13] MEDS: SERTRALINE HCL 50 MG TABLET (FP) PO SCH (11:08)
[2018-02-13] MEDS: amLODIPine BESYLATE 5 MG TABLET (FP) PO SCH (11:08)
--- NOTE | 2018-02-13 11:17 | PN ---
Progress Note (short form) - Note Progress Note: Awake/ comfortable no distress denies pain Vital Signs Temp 97.8 F 02/12/18 21:50 Pulse 70 02/13/18 05:02 Resp 18 02/13/18 05:02 BP 107/56 L 02/13/18 05:02 Pulse Ox 97 02/12/18 09:00 Intake & Output 02/12/18 02/12/18 02/13/18 11:59 23:59 11:59 Intake Total 200 700 144 Output Total 400 300 Balance 200 300 -156 Intake: IV 100 144 HEPARIN INFUSION - 25,000 100 144 units In 500 ml @ 1,000 UNITS/HR 20 mls/hr IVPB TITR [facility] Rx#:[id number] IVPB 100 Oral 200 500 Output: Urine 400 300 Void 400 300 Other: Voiding Method Urinal Urinal Urinal # Unmeasured Voids Void 2 Bowel Movement No Active Medications Amlodipine Besylate (Norvasc -) 5 mg PO DAILY [facility] Last Admin: 02/13/18 11:08 Dose: 5 mg Atorvastatin Calcium (Lipitor -) 10 mg PO HS [facility] Last Admin: 02/12/18 21:54 Dose: 10 mg Carvedilol (Coreg -) 25 mg PO BID [facility] Last Admin: 02/13/18 11:08 Dose: 25 mg Heparin Sodium (Porcine) (Heparin -) 1,000 unit IVPUSH PRN PRN PRN Reason: Heparin Heparin Sodium (Porcine) (Heparin -) 5,000 unit IVPUSH PRN PRN PRN Reason: Heparin Ceftriaxone Sodium 1 gm/ (Dextrose) 50 mls @ 100 mls/hr IVPB DAILY@0800 [facility] Last Admin: 02/13/18 11:07 Dose: 100 mls/hr Heparin Sodium/Dextrose (Heparin Infusion -) 25,000 units in 500 mls @ 20 mls/ hr IVPB TITR [facility]; Protocol Last Titration: 02/12/18 18:59 Dose: 600 units/hr, 12 mls/hr Insulin Aspart (Novolog Vial Sliding Scale -) 1 vial SQ ACHS [facility]; Protocol Last Admin: 02/13/18 06:02 Dose: Not Given Pantoprazole Sodium (Protonix -) 40 mg PO DAILY [facility] Last Admin: 02/13/18 11:08 Dose: 40 mg Sertraline HCl (Zoloft -) 50 mg PO DAILY [facility] Last Admin: 02/13/18 11:08 Dose: 50 mg Tamsulosin HCl (Flomax -) 0.4 mg PO DAILY@0830 [facility] Last Admin: 02/13/18 11:08 Dose: 0.4 mg Warfarin Sodium (Coumadin -) 5 mg PO DAILY@1800 [facility] Last Admin: 02/12/18 18:48 Dose: 5 mg Today Labs - Pending Physical Exam. awake/ comfortable S1 S2 Irregular Lungs decreased breath sounds -- better ABd- soft,NT ND. BS+, ventral hernia+ no edema. Neuro- aox 3 PLAN s/p thoracocentesis. Meds reviewed Restarted coumadin Bridged with heparin after procedure monitor lytes cr remains elevated [place] held renal consult noted/ appreciated abx physical therapy continue present care. overall better anticipate d/c tomorrow Problem List - Problems (1) Pleural effusion, right Code(s): J90 - PLEURAL EFFUSION, NOT ELSEWHERE CLASSIFIED (2) Acute on chronic renal failure Code(s): N17.9 - ACUTE KIDNEY FAILURE, UNSPECIFIED; N18.9 - CHRONIC KIDNEY DISEASE, UNSPECIFIED (3) Afib Code(s): I48.91 - UNSPECIFIED ATRIAL FIBRILLATION Qualifiers: Atrial fibrillation type: chronic Qualified Code(s): I48.2 - Chronic atrial fibrillation (4) Anemia Code(s): D64.9 - ANEMIA, UNSPECIFIED Qualifiers: Anemia type: unspecified type Qualified Code(s): D64.9 - Anemia, unspecified (5) Breast cancer in male Code(s): C50.929 - MALIGNANT NEOPLASM OF UNSP SITE OF UNSPECIFIED MALE BREAST (6) Chronic kidney disease (CKD) Code(s): N18.9 - CHRONIC KIDNEY DISEASE, UNSPECIFIED Qualifiers: Chronic kidney disease stage: unspecified stage Qualified Code(s): N18.9 - Chronic kidney disease, unspecified (7) Status post coronary artery stent placement Code(s): Z95.5 - PRESENCE OF CORONARY ANGIOPLASTY IMPLANT AND GRAFT
--- NOTE | 2018-02-13 11:34 | PN ---
Progress Note (short form) - Note Progress Note: Chief Complaint: Events noted, notes reviewed, dyspnea improved, denies any chest pain History of Present Illness: Patient seen and examined. Events noted, notes reviewed, dyspnea improved, denies any chest pain, A/C in progress with Heparin and Coumadin - Current Medication List Current Medications: Active Medications Current Medications Amlodipine Besylate (Norvasc -) 5 mg PO DAILY [facility] Last Admin: 02/13/18 11:08 Dose: 5 mg Atorvastatin Calcium (Lipitor -) 10 mg PO HS [facility] Last Admin: 02/12/18 21:54 Dose: 10 mg Carvedilol (Coreg -) 25 mg PO BID [facility] Last Admin: 02/13/18 11:08 Dose: 25 mg Heparin Sodium (Porcine) (Heparin -) 1,000 unit IVPUSH PRN PRN PRN Reason: Heparin Heparin Sodium (Porcine) (Heparin -) 5,000 unit IVPUSH PRN PRN PRN Reason: Heparin Ceftriaxone Sodium 1 gm/ (Dextrose) 50 mls @ 100 mls/hr IVPB DAILY@0800 [facility] Last Admin: 02/13/18 11:07 Dose: 100 mls/hr Heparin Sodium/Dextrose (Heparin Infusion -) 25,000 units in 500 mls @ 20 mls/ hr IVPB TITR [facility]; Protocol Last Titration: 02/12/18 18:59 Dose: 600 units/hr, 12 mls/hr Insulin Aspart (Novolog Vial Sliding Scale -) 1 vial SQ ACHS [facility]; Protocol Last Admin: 02/13/18 06:02 Dose: Not Given Pantoprazole Sodium (Protonix -) 40 mg PO DAILY [facility] Last Admin: 02/13/18 11:08 Dose: 40 mg Sertraline HCl (Zoloft -) 50 mg PO DAILY [facility] Last Admin: 02/13/18 11:08 Dose: 50 mg Tamsulosin HCl (Flomax -) 0.4 mg PO DAILY@0830 [facility] Last Admin: 02/13/18 11:08 Dose: 0.4 mg Warfarin Sodium (Coumadin -) 5 mg PO DAILY@1800 [facility] Last Admin: 02/12/18 18:48 Dose: 5 mg - Review of Systems Constitutional: denies: Chills, Fever Cardiovascular: As noted above Respiratory: denies: Cough or Sputum Production Gastrointestinal: denies: Nausea, Vomiting, Diarrhea, Constipation or Abdominal Pain Genitourinary: denies: Dysuria, Hematuria Neurological: denies: Dizziness - Objective Vital Signs: Last Vital Signs Temp Pulse Resp BP Pulse Ox 97.8 F 70 18 107/56 L 97 02/12/18 21:50 02/13/18 05:02 02/13/18 05:02 02/13/18 05:02 02/12/18 09:00 Intake & Output 02/10/18 02/11/18 02/12/18 02/13/18 23:59 23:59 23:59 23:59 Intake Total 890 490 900 144 Output Total 1200 450 400 300 Balance -310 40 500 -156 Weight 174 lb Neck: Supple Negative JVD Cardiovascular: S1 S2 Irregularly Irregular Respiratory: diminished Breath Sounds Bilaterally Gastrointestinal: Soft Benign Normal Bowel Sounds Ext: negative Edema Labs: INR, PTT INR 1.83 (0.83-1.09) H 02/12/18 17:36 Blood test pending from today, (lab was contacted; there is a system error which explains AM lab delay) Assessment/Plan ASSESSMENT: 1. Right pleural effusion with underlying history of breast CA post mastectomy and chemotherapy post thoracentesis 2. Acute on chronic class II NYHA classification LV failure related LV systolic dysfunction, resolved 3. CAD post PCI/stent angina pectoris 4. Persistent atrial fibrillation on A/C, [id number] score of 6 5. AV block s/p PPM 6. Mitral valve and tricuspid valve regurgitation 7. HTN/HCVD 8. DM 9. Hypercholesterolemia 10. Acute on CKD PLAN: 1. Continue A/C with Heparin and Coumadin as per INR 2. Continue Carvedilol 3. Continue Amlodipine 4. Continue Lipitor 5. Resume Valsartan and diuretics once renal function stabilizes/at baseline with close monitoring of renal function 6. Antibiotic as per the primary team Adriel Phoenix M.D.
--- NOTE | 2018-02-13 12:17 | PN ---
Progress Note (short form) - Note Progress Note: Resting in NAD. Denies CP or SOB. No acute events overnight. Intake & Output 02/10/18 02/11/18 02/12/18 02/13/18 23:59 23:59 23:59 23:59 Intake Total 890 490 900 144 Output Total 1200 450 400 300 Balance -310 40 500 -156 Weight 174 lb Last Vital Signs Temp Pulse Resp BP Pulse Ox 97.8 F 70 18 107/56 L 97 02/12/18 21:50 02/13/18 05:02 02/13/18 05:02 02/13/18 05:02 02/12/18 09:00 Active Medications Amlodipine Besylate (Norvasc -) 5 mg PO DAILY [facility] Last Admin: 02/13/18 11:08 Dose: 5 mg Atorvastatin Calcium (Lipitor -) 10 mg PO HS [facility] Last Admin: 02/12/18 21:54 Dose: 10 mg Carvedilol (Coreg -) 25 mg PO BID [facility] Last Admin: 02/13/18 11:08 Dose: 25 mg Heparin Sodium (Porcine) (Heparin -) 1,000 unit IVPUSH PRN PRN PRN Reason: Heparin Heparin Sodium (Porcine) (Heparin -) 5,000 unit IVPUSH PRN PRN PRN Reason: Heparin Ceftriaxone Sodium 1 gm/ (Dextrose) 50 mls @ 100 mls/hr IVPB DAILY@0800 [facility] Last Admin: 02/13/18 11:07 Dose: 100 mls/hr Heparin Sodium/Dextrose (Heparin Infusion -) 25,000 units in 500 mls @ 20 mls/ hr IVPB TITR [facility]; Protocol Last Titration: 02/12/18 18:59 Dose: 600 units/hr, 12 mls/hr Insulin Aspart (Novolog Vial Sliding Scale -) 1 vial SQ ACHS [facility]; Protocol Last Admin: 02/13/18 06:02 Dose: Not Given Pantoprazole Sodium (Protonix -) 40 mg PO DAILY [facility] Last Admin: 02/13/18 11:08 Dose: 40 mg Sertraline HCl (Zoloft -) 50 mg PO DAILY [facility] Last Admin: 02/13/18 11:08 Dose: 50 mg Tamsulosin HCl (Flomax -) 0.4 mg PO DAILY@0830 [facility] Last Admin: 02/13/18 11:08 Dose: 0.4 mg Warfarin Sodium (Coumadin -) 5 mg PO DAILY@1800 [facility] Last Admin: 02/12/18 18:48 Dose: 5 mg Constitutional: Yes: NAD Eyes: Yes: WNL HENT: Yes: WNL Neck: Yes: WNL Cardiovascular: Yes: Pulse Irregular, S1, S2 Respiratory: Yes: Diminished at the bases Gastrointestinal: Yes: Normal Bowel Sounds, Soft Extremities: Yes: WNL Edema: No Labs: Laboratory Results - last 24 hr 02/12/18 02/12/18 02/12/18 12:40 17:27 17:36 PT with INR 21.70 H INR 1.83 H PTT (Actin FS) 78.5 H POC Glucometer 64 68 02/12/18 02/13/18 02/13/18 21:52 05:28 06:35 PT with INR INR PTT (Actin FS) Cancelled POC Glucometer 58 99 Problem List - Problems (1) Pleural effusion, right Code(s): J90 - PLEURAL EFFUSION, NOT ELSEWHERE CLASSIFIED (2) Acute on chronic congestive heart failure Code(s): I50.9 - HEART FAILURE, UNSPECIFIED (3) Acute on chronic renal failure Code(s): N17.9 - ACUTE KIDNEY FAILURE, UNSPECIFIED; N18.9 - CHRONIC KIDNEY DISEASE, UNSPECIFIED (4) Afib Code(s): I48.91 - UNSPECIFIED ATRIAL FIBRILLATION Qualifiers: Atrial fibrillation type: chronic Qualified Code(s): I48.2 - Chronic atrial fibrillation (5) Anemia Code(s): D64.9 - ANEMIA, UNSPECIFIED Qualifiers: Anemia type: unspecified type Qualified Code(s): D64.9 - Anemia, unspecified (6) Breast cancer in male Code(s): C50.929 - MALIGNANT NEOPLASM OF UNSP SITE OF UNSPECIFIED MALE BREAST (7) Coronary artery disease Code(s): I25.10 - ATHSCL HEART DISEASE OF [place] CORONARY ARTERY W/O ANG PCTRS Qualifiers: Coronary Disease-Associated Artery/Lesion type: [place] artery [place] vs. transplanted heart: [place] heart Associated angina: without angina Qualified Code(s): I25.10 - Atherosclerotic heart disease of [place] coronary artery without angina pectoris (8) Edema, peripheral Code(s): R60.9 - EDEMA, UNSPECIFIED (9) HTN (hypertension) Code(s): I10 - ESSENTIAL (PRIMARY) HYPERTENSION Qualifiers: Hypertension type: essential hypertension Qualified Code(s): I10 - Essential (primary) hypertension (10) Hyperlipidemia Code(s): E78.5 - HYPERLIPIDEMIA, UNSPECIFIED Qualifiers: Hyperlipidemia type: pure hypercholesterolemia Qualified Code(s): E78.00 - Pure hypercholesterolemia, unspecified; E78.0 - Pure hypercholesterolemia (11) Pulmonary hypertension Code(s): I27.2 - OTHER SECONDARY PULMONARY HYPERTENSION * DO NOT USE * (12) Sick sinus syndrome Code(s): I49.5 - SICK SINUS SYNDROME (13) Status post coronary artery stent placement Code(s): Z95.5 - PRESENCE OF CORONARY ANGIOPLASTY IMPLANT AND GRAFT (14) Supratherapeutic INR Code(s): R79.1 - ABNORMAL COAGULATION PROFILE (15) Type 2 diabetes mellitus Code(s): E11.9 - TYPE 2 DIABETES MELLITUS WITHOUT COMPLICATIONS Qualifiers: Diabetes mellitus complication status: with kidney complications Diabetes mellitus complication detail: with chronic kidney disease Chronic kidney disease stage: stage 3 (moderate) Assessment/Plan IMP ACUTE ON CHRONIC CHF BILATERAL EFFUSIONS R>L ? SECONDARY TO CHF,? MALIGNANT AFIB ASHD S/P STENTS S/P PPM ACUTE ON CHRONIC KIDNEY DISEASE H/O BREAST CA S/P R MASTECTOMY,S/P CHEMO PULMONARY HTN MITRAL AND TRICUSPID REGURG DM HTN HLD PLAN LASIX O2 DAILY WTS FOLLOW RESULTS OF PLEURAL FLUID ABX AC WITH IV HEPRAIN AND COUMADIN D/C PLANNING DR HART
[2018-02-13 12:32] LABS: ALK PHOS 140 U/L (45-117); ANION GAP 7 MMOL/L (8-16); BILIRUBIN,TOTAL 0.3 mg/dL (0.2-1); BLOOD UREA NITROGEN 31 mg/dL (7-18); CALCIUM 7.1 mg/dL (8.5-10.1); CHLORIDE 106 mmol/L (98-107); CO2 25 mmol/L (21-32); CREATININE 2.2 mg/dL (0.55-1.3); GLUCOSE,RANDOM 67 mg/dL (74-106); MAGNESIUM 1.6 mg/dL (1.8-2.4); POTASSIUM 4.3 mmol/L (3.5-5.1); SGOT/AST 13 U/L (15-37); SGPT/ALT 11 U/L (13-61); SODIUM 138 mmol/L (136-145); TOT PROT 4.7 g/dl (6.4-8.2)
[2018-02-13 12:49] LABS: ACTIVATED PTT 54.9 SECONDS (25.2-36.5); INR 1.88 (0.83-1.09); PROTHROMBIN TIME (PATIENT) 22.3 SEC (9.7-13.0)
[2018-02-13] MEDS: HEPARIN INFUSION - 25,000 UNITS/500 ML INFUS.BAG IVPB SCH ×2 (13:31→18:58)
[2018-02-13 14:04] LABS: BASO % 0.6 % (0-2.0); EOS % 1.3 % (0-4.5); HEMATOCRIT 32.3 % (35.4-49); HEMOGLOBIN 10.4 GM/dL (11.7-16.9); LYMPH % 18.7 % (8-40); MCH 30.8 pg (25.7-33.7); MCHC 32.2 g/dl (32.0-35.9); MEAN CELL VOLUME 95.5 fl (80-96); MEAN PLT VOLUME 8.5 fl (7.5-11.1); MONO % 9.7 % (3.8-10.2); NEUT % 69.7 % (42.8-82.8); PLATELET COUNT 116 K/MM3 (134-434); RBC 3.39 M/mm3 (4.00-5.60); WHITE BLOOD COUNT 4.8 K/mm3 (4.0-10.0)
[2018-02-13] MEDS: WARFARIN NA 5 MG TABLET (UD) PO SCH (18:02)
[2018-02-13] MEDS: ATORVASTATIN CA 10 MG TABLET (FP) PO SCH (22:20)
[2018-02-14] MEDS: INSULIN SLIDING SCALE (NOVOLOG) 1 VIAL SQ SCH ×2 (06:08→12:46)
[2018-02-14 07:25] LABS: INR 2.37 (0.83-1.09); PROTHROMBIN TIME (PATIENT) 28.2 SEC (9.7-13.0)
[2018-02-14 07:41] LABS: ALBUMIN 2.2 g/dl (3.4-5.0); ALK PHOS 138 U/L (45-117); ANION GAP 8 MMOL/L (8-16); BILIRUBIN,TOTAL 0.6 mg/dL (0.2-1); BLOOD UREA NITROGEN 32 mg/dL (7-18); CALCIUM 7.4 mg/dL (8.5-10.1); CHLORIDE 107 mmol/L (98-107); CO2 24 mmol/L (21-32); GLUCOSE,RANDOM 71 mg/dL (74-106); POTASSIUM 4.7 mmol/L (3.5-5.1); SGOT/AST 19 U/L (15-37); SGPT/ALT 14 U/L (13-61); SODIUM 138 mmol/L (136-145); TOT PROT 4.9 g/dl (6.4-8.2)
[2018-02-14 07:58] VITALS: BP 102/62; PULSE 72; TEMP 97.1
[2018-02-14 08:30] LABS: HEMATOCRIT 31.5 % (35.4-49); HEMOGLOBIN 11.2 GM/dL (11.7-16.9); MCH 33.2 pg (25.7-33.7); MCHC 35.5 g/dl (32.0-35.9); MEAN CELL VOLUME 93.5 fl (80-96); MEAN PLT VOLUME 9.2 fl (7.5-11.1); PLATELET COUNT 123 K/MM3 (134-434); RBC 3.36 M/mm3 (4.00-5.60); RDW 16.2 % (11.9-15.9); WHITE BLOOD COUNT 4.1 K/mm3 (4.0-10.0)
[2018-02-14] MEDS ORDERED: DEXTROSE 5%-WATER - 50 ML IVPB ONE (10:26)
[2018-02-14] MEDS ORDERED: cefTRIAXone SODIUM 1 GM VIAL ONE (10:26)
[2018-02-14] MEDS: TAMSULOSIN HCL 0.4 MG CAP PO SCH (10:47)
[2018-02-14] MEDS: SERTRALINE HCL 50 MG TABLET (FP) PO SCH (10:47)
[2018-02-14] MEDS: PANTOPRAZOLE 40 MG TABLET (FP) PO SCH (10:47)
[2018-02-14] MEDS: amLODIPine BESYLATE 5 MG TABLET (FP) PO SCH (10:47)
[2018-02-14] MEDS: CARVEDILOL 25 MG TABLET (FP) PO SCH (10:47)
[2018-02-14] MEDS: HEPARIN INFUSION - 25,000 UNITS/500 ML INFUS.BAG IVPB SCH (10:48)
[2018-02-14] MEDS: CEFTRIAXONE 1 GM in DEXTROSE 5%-WATER - 50 ML IVPB SCH (10:48)
--- NOTE | 2018-02-14 11:45 | PN ---
Progress Note, Physician History of Present Illness: Dyspnea improved after right thoracentesis. - Current Medication List Current Medications: Active Medications Amlodipine Besylate (Norvasc -) 5 mg PO DAILY [facility] Last Admin: 02/14/18 10:47 Dose: 5 mg Atorvastatin Calcium (Lipitor -) 10 mg PO HS [facility] Last Admin: 02/13/18 22:20 Dose: 10 mg Carvedilol (Coreg -) 25 mg PO BID [facility] Last Admin: 02/14/18 10:47 Dose: 25 mg Heparin Sodium (Porcine) (Heparin -) 1,000 unit IVPUSH PRN PRN PRN Reason: Heparin Heparin Sodium (Porcine) (Heparin -) 5,000 unit IVPUSH PRN PRN PRN Reason: Heparin Ceftriaxone Sodium 1 gm/ (Dextrose) 50 mls @ 100 mls/hr IVPB DAILY@0800 [facility] Last Admin: 02/14/18 10:48 Dose: 100 mls/hr Heparin Sodium/Dextrose (Heparin Infusion -) 25,000 units in 500 mls @ 20 mls/ hr IVPB TITR [facility]; Protocol Last Admin: 02/14/18 10:48 Dose: Not Given Insulin Aspart (Novolog Vial Sliding Scale -) 1 vial SQ ACHS [facility]; Protocol Last Admin: 02/14/18 06:08 Dose: Not Given Pantoprazole Sodium (Protonix -) 40 mg PO DAILY [facility] Last Admin: 02/14/18 10:47 Dose: 40 mg Sertraline HCl (Zoloft -) 50 mg PO DAILY [facility] Last Admin: 02/14/18 10:47 Dose: 50 mg Tamsulosin HCl (Flomax -) 0.4 mg PO DAILY@0830 [facility] Last Admin: 02/14/18 10:47 Dose: 0.4 mg Warfarin Sodium (Coumadin -) 5 mg PO DAILY@1800 [facility] Last Admin: 02/13/18 18:02 Dose: 5 mg - Objective Vital Signs: Vital Signs Temperature 97.1 F L 02/14/18 06:00 Pulse Rate 72 02/14/18 06:00 Respiratory Rate 18 02/14/18 06:00 Blood Pressure 102/62 02/14/18 06:00 O2 Sat by Pulse Oximetry (%) 99 02/13/18 21:00 Constitutional: Yes: No Distress, Calm, Thin Neck: Yes: Supple Cardiovascular: Yes: Regular Rate and Rhythm, Murmur (3/6 SM) Respiratory: Yes: Regular, Diminished Gastrointestinal: Yes: Normal Bowel Sounds, Soft Edema: No Labs: CBC, BMP 02/14/18 06:00 02/14/18 06:00 INR, PTT INR 2.37 (0.83-1.09) H 02/14/18 06:00 Problem List - Problems (1) Pleural effusion, right Code(s): J90 - PLEURAL EFFUSION, NOT ELSEWHERE CLASSIFIED (2) Acute on chronic congestive heart failure Code(s): I50.9 - HEART FAILURE, UNSPECIFIED (3) Afib Code(s): I48.91 - UNSPECIFIED ATRIAL FIBRILLATION Qualifiers: Atrial fibrillation type: chronic Qualified Code(s): I48.2 - Chronic atrial fibrillation (4) Chronic kidney disease (CKD) Code(s): N18.9 - CHRONIC KIDNEY DISEASE, UNSPECIFIED Qualifiers: Chronic kidney disease stage: unspecified stage Qualified Code(s): N18.9 - Chronic kidney disease, unspecified (5) Coronary artery disease Code(s): I25.10 - ATHSCL HEART DISEASE OF [place] CORONARY ARTERY W/O ANG PCTRS Qualifiers: Coronary Disease-Associated Artery/Lesion type: [place] artery [place] vs. transplanted heart: [place] heart Associated angina: without angina Qualified Code(s): I25.10 - Atherosclerotic heart disease of [place] coronary artery without angina pectoris (6) HTN (hypertension) Code(s): I10 - ESSENTIAL (PRIMARY) HYPERTENSION Qualifiers: Hypertension type: essential hypertension Qualified Code(s): I10 - Essential (primary) hypertension (7) Hyperlipidemia Code(s): E78.5 - HYPERLIPIDEMIA, UNSPECIFIED Qualifiers: Hyperlipidemia type: pure hypercholesterolemia Qualified Code(s): E78.00 - Pure hypercholesterolemia, unspecified; E78.0 - Pure hypercholesterolemia (8) Pacemaker Code(s): Z95.0 - PRESENCE OF CARDIAC PACEMAKER (9) Sick sinus syndrome Code(s): I49.5 - SICK SINUS SYNDROME (10) Status post coronary artery stent placement Code(s): Z95.5 - PRESENCE OF CORONARY ANGIOPLASTY IMPLANT AND GRAFT (11) Systolic and diastolic CHF, acute on chronic Code(s): I50.43 - ACUTE ON CHRONIC COMBINED SYSTOLIC AND DIASTOLIC HRT FAIL (12) Type 2 diabetes mellitus Code(s): E11.9 - TYPE 2 DIABETES MELLITUS WITHOUT COMPLICATIONS Qualifiers: Diabetes mellitus complication status: with kidney complications Diabetes mellitus complication detail: with chronic kidney disease Chronic kidney disease stage: stage 3 (moderate) Assessment/Plan 02/09/2018 Echo: Normal LV size with severely decreased LV fxn, severe TR, severe pulm HTN, pacer in RV 1. Right pleural effusion with underlying history of breast CA post mastectomy and chemotherapy post thoracentesis 2. Acute on chronic class II NYHA classification LV failure related LV systolic dysfunction, resolved 3. CAD post PCI/stent angina pectoris 4. Persistent atrial fibrillation on A/C, [id number] score of 6 with therapeutic INR 5. AV block s/p PPM 6. Mitral valve and tricuspid valve regurgitation 7. HTN/HCVD 8. DM 9. Hypercholesterolemia 10. Acute on CKD PLAN: 1. Continue A/C with Coumadin as per INR 2. Continue Carvedilol 25 bid 3. Continue Amlodipine 5 qd 4. Continue Lipitor 10 qhs 5. Resume Valsartan and diuretics once renal function stabilizes/at baseline with close monitoring of renal function 6. Antibiotic as per the primary team
--- NOTE | 2018-02-14 12:07 | DS ---
Physical Examination Vital Signs: Vital Signs Temperature 97.1 F L 02/14/18 06:00 Pulse Rate 72 02/14/18 06:00 Respiratory Rate 18 02/14/18 06:00 Blood Pressure 102/62 02/14/18 06:00 O2 Sat by Pulse Oximetry (%) 99 02/13/18 21:00 Findings/Remarks: pt seen/ examined awake/ comfortable denies pain wants to go home Constitutional: Yes: No Distress, Calm Neck: Yes: Supple Cardiovascular: Yes: Pulse Irregular. No: Regular Rate and Rhythm Respiratory: Yes: Diminished Edema: No Neurological: Yes: Alert Psychiatric: Yes: Alert Labs: CBC, BMP 02/14/18 06:00 02/14/18 06:00 Discharge Summary Reason For Visit: PLEURAL EFFUSION ON RIGHT Current Active Problems Pleural effusion, right (Acute) Vomiting (Acute) Hospital Course: In summary--82 yo M PMH CAD s/p PCI stent, s/p PPM (2004), AFib on Warfarin, HTN , HLD, Anemia, CHF, DM, hx of breast CA s/p R mastectomy (2003), gout, CKD, R sided hernia p/w n/v, bloating, and SOB x2wks but acutely worsening x2d. vomit is NBNB. The patient denies abdominal pain but reports pressure with palpation/ bloating. The patient reports relief with laying on his right side Pt followed by cardiology/ pulmonary treated with abx for possible pneumonia lasix and camden held due to worsening of ckd echo also done Underwent thoracocentesis-- fluid Exudative Pathology pending. discussed with pulmonary can be followed as out pt. pt to follow with her pmd in 2-3 days/ pulmonary and cardiology as advised. meds reconcilled discussed with nursing staff also. cr back to baseline-- almost-- will restart lasix cam[place] to be restarted as out pt -- when cr back to baseline-- as per his pmd time spend approx - 30 min in examining/ documenting and coordating care Condition: Stable - Instructions Disposition: HOME - Home Medications Comprehensive Discharge Medication List: Ambulatory Orders Colchicine [Colcrys] 0.6 mg PO DAILY 03/27/15 Pantoprazole Sodium [Protonix] 40 mg PO DAILY 03/27/15 Sertraline HCl [Zoloft -] 50 mg PO DAILY 03/27/15 Simvastatin [Zocor -] 20 mg PO HS 03/27/15 Amlodipine Besylate [Norvasc -] 5 mg PO DAILY #30 tablet 09/27/15 Carvedilol [Coreg -] 25 mg PO BID #60 tablet 09/27/15 Polyethylene Glycol 3350 [Miralax 119 gm Btl -] 17 gm PO DAILY PRN #1 bottle Warfarin Na [Coumadin -] 5 mg PO DAILY@1800 #30 tablet 09/27/15 Furosemide [Lasix] 40 mg PO DAILY 30 Days #30 tablet 02/14/18 Tamsulosin HCl [Flomax -] 0.4 mg PO DAILY@0830 cap.er.24h 02/14/18
--- NOTE | 2018-02-14 12:14 | PN ---
Progress Note (short form) - Note Progress Note: Renal follow up for MINOO/CKD Pt seen and examined at the bedside no acute complaints for discharge today making urine no sob, cp Vital Signs Temperature 97.1 F L 02/14/18 06:00 Pulse Rate 72 02/14/18 06:00 Respiratory Rate 18 02/14/18 06:00 Blood Pressure 102/62 02/14/18 06:00 O2 Sat by Pulse Oximetry (%) 99 02/13/18 21:00 Intake & Output 02/11/18 02/12/18 02/13/18 02/14/18 23:59 23:59 23:59 23:59 Intake Total 490 900 384 400 Output Total 450 400 300 Balance 40 500 84 400 Weight 78.925 kg NAD no LE edema CBC, BMP 02/14/18 06:00 02/14/18 06:00 Laboratory Tests 02/09/18 02/10/18 02/11/18 05:35 07:00 07:00 Creatinine 1.7 H 1.9 H 2.0 H 02/12/18 02/13/18 02/14/18 08:50 06:35 06:00 Creatinine 2.0 H 2.2 H 2.0 H Renal Us showed mild right renal atrophy but no hydronephrosis. Did have urinary retention. Current Medications Amlodipine Besylate (Norvasc -) 5 mg PO DAILY [facility] Last Admin: 02/14/18 10:47 Dose: 5 mg Atorvastatin Calcium (Lipitor -) 10 mg PO HS [facility] Last Admin: 02/13/18 22:20 Dose: 10 mg Carvedilol (Coreg -) 25 mg PO BID [facility] Last Admin: 02/14/18 10:47 Dose: 25 mg Heparin Sodium (Porcine) (Heparin -) 1,000 unit IVPUSH PRN PRN PRN Reason: Heparin Heparin Sodium (Porcine) (Heparin -) 5,000 unit IVPUSH PRN PRN PRN Reason: Heparin Insulin Aspart (Novolog Vial Sliding Scale -) 1 vial SQ ACHS [facility]; Protocol Last Admin: 02/14/18 06:08 Dose: Not Given Pantoprazole Sodium (Protonix -) 40 mg PO DAILY [facility] Last Admin: 02/14/18 10:47 Dose: 40 mg Sertraline HCl (Zoloft -) 50 mg PO DAILY [facility] Last Admin: 02/14/18 10:47 Dose: 50 mg Tamsulosin HCl (Flomax -) 0.4 mg PO DAILY@0830 [facility] Last Admin: 02/14/18 10:47 Dose: 0.4 mg Warfarin Sodium (Coumadin -) 5 mg PO DAILY@1800 [facility] Last Admin: 02/13/18 18:02 Dose: 5 mg 82 yo M PMH CAD s/p PCI stent, s/p PPM, AFib on Warfarin, HTN, HLD, Anemia, CHF , DM, breast CA s/p R mastectomy, gout, CKD, Right sided hernia, LE edema. #MINOO/CKD #Pleural effusion s/p Thoracentesis #Urinary retention/BPH Renal function stable SOB improved s/p thoracentesis will need repeat labs within 1 week of discharge advised to follow up with primary liner replacer on discharge d/c planning as per primary Epifanio Damico DO
--- NOTE | 2018-02-14 12:29 | PN ---
Progress Note (short form) - Note Progress Note: Resting in NAD. Denies CP or SOB. No acute events overnight. Intake & Output 02/11/18 02/12/18 02/13/18 02/14/18 23:59 23:59 23:59 23:59 Intake Total 490 900 384 400 Output Total 450 400 300 Balance 40 500 84 400 Weight 174 lb Last Vital Signs Temp Pulse Resp BP Pulse Ox 97.1 F L 72 18 102/62 99 02/14/18 06:00 02/14/18 06:00 02/14/18 06:00 02/14/18 06:00 02/13/18 21:00 Active Medications Amlodipine Besylate (Norvasc -) 5 mg PO DAILY [facility] Last Admin: 02/14/18 10:47 Dose: 5 mg Atorvastatin Calcium (Lipitor -) 10 mg PO HS [facility] Last Admin: 02/13/18 22:20 Dose: 10 mg Carvedilol (Coreg -) 25 mg PO BID [facility] Last Admin: 02/14/18 10:47 Dose: 25 mg Heparin Sodium (Porcine) (Heparin -) 1,000 unit IVPUSH PRN PRN PRN Reason: Heparin Heparin Sodium (Porcine) (Heparin -) 5,000 unit IVPUSH PRN PRN PRN Reason: Heparin Insulin Aspart (Novolog Vial Sliding Scale -) 1 vial SQ [facility]; Protocol Last Admin: 02/14/18 06:08 Dose: Not Given Pantoprazole Sodium (Protonix -) 40 mg PO DAILY [facility] Last Admin: 02/14/18 10:47 Dose: 40 mg Sertraline HCl (Zoloft -) 50 mg PO DAILY [facility] Last Admin: 02/14/18 10:47 Dose: 50 mg Tamsulosin HCl (Flomax -) 0.4 mg PO DAILY@0830 [facility] Last Admin: 02/14/18 10:47 Dose: 0.4 mg Warfarin Sodium (Coumadin -) 5 mg PO DAILY@1800 [facility] Last Admin: 02/13/18 18:02 Dose: 5 mg Constitutional: Yes: NAD Eyes: Yes: WNL HENT: Yes: WNL Neck: Yes: WNL Cardiovascular: Yes: Pulse Irregular, S1, S2 Respiratory: Yes: Diminished at the bases Gastrointestinal: Yes: Normal Bowel Sounds, Soft Extremities: Yes: WNL Edema: No Labs: Laboratory Results - last 24 hr 02/13/18 02/13/18 02/13/18 06:35 06:35 06:35 WBC 4.8 RBC 3.39 L Hgb 10.4 L Hct 32.3 L MCV 95.5 MCH 30.8 MCHC 32.2 RDW 17.0 H Plt Count 116 L MPV 8.5 Absolute Neuts (auto) 3.4 Neutrophils % 69.7 Lymphocytes % 18.7 Monocytes % 9.7 Eosinophils % 1.3 Basophils % 0.6 Nucleated RBC % 0 PT with INR 22.30 H INR 1.88 H PTT (Actin FS) 54.9 H Sodium 138 Potassium 4.3 Chloride 106 Carbon Dioxide 25 Anion Gap 7 L BUN 31 H Creatinine 2.2 H Creat Clearance w eGFR 28.87 POC Glucometer Random Glucose 67 L Calcium 7.1 L Magnesium 1.6 L Total Bilirubin 0.3 AST 13 L ALT 11 L Alkaline Phosphatase 140 H Total Protein 4.7 L Albumin 2.0 L 02/13/18 02/13/18 02/13/18 13:33 17:51 22:21 WBC RBC Hgb Hct MCV MCH MCHC RDW Plt Count MPV Absolute Neuts (auto) Neutrophils % Lymphocytes % Monocytes % Eosinophils % Basophils % Nucleated RBC % PT with INR INR PTT (Actin FS) Sodium Potassium Chloride Carbon Dioxide Anion Gap BUN Creatinine Creat Clearance w eGFR POC Glucometer 116 103 123 Random Glucose Calcium Magnesium Total Bilirubin AST ALT Alkaline Phosphatase Total Protein Albumin 02/14/18 02/14/18 02/14/18 06:00 06:00 06:00 WBC 4.1 RBC 3.36 L Hgb 11.2 L Hct 31.5 L MCV 93.5 MCH 33.2 MCHC 35.5 RDW 16.2 H Plt Count 123 L MPV 9.2 Absolute Neuts (auto) Neutrophils % Lymphocytes % Monocytes % Eosinophils % Basophils % Nucleated RBC % PT with INR 28.20 H INR 2.37 H PTT (Actin FS) 104.6 H Sodium Potassium Chloride Carbon Dioxide Anion Gap BUN Creatinine Creat Clearance w eGFR POC Glucometer Random Glucose Calcium Magnesium Total Bilirubin AST ALT Alkaline Phosphatase Total Protein Albumin 02/14/18 02/14/18 06:00 06:01 WBC RBC Hgb Hct MCV MCH MCHC RDW Plt Count MPV Absolute Neuts (auto) Neutrophils % Lymphocytes % Monocytes % Eosinophils % Basophils % Nucleated RBC % PT with INR INR PTT (Actin FS) Sodium 138 Potassium 4.7 Chloride 107 Carbon Dioxide 24 Anion Gap 8 BUN 32 H Creatinine 2.0 H Creat Clearance w eGFR 32.23 POC Glucometer 80 Random Glucose 71 L Calcium 7.4 L Magnesium Total Bilirubin 0.6 AST 19 ALT 14 Alkaline Phosphatase 138 H Total Protein 4.9 L Albumin 2.2 L Problem List - Problems (1) Pleural effusion, right Code(s): J90 - PLEURAL EFFUSION, NOT ELSEWHERE CLASSIFIED (2) Acute on chronic congestive heart failure Code(s): I50.9 - HEART FAILURE, UNSPECIFIED (3) Acute on chronic renal failure Code(s): N17.9 - ACUTE KIDNEY FAILURE, UNSPECIFIED; N18.9 - CHRONIC KIDNEY DISEASE, UNSPECIFIED (4) Afib Code(s): I48.91 - UNSPECIFIED ATRIAL FIBRILLATION Qualifiers: Atrial fibrillation type: chronic Qualified Code(s): I48.2 - Chronic atrial fibrillation (5) Anemia Code(s): D64.9 - ANEMIA, UNSPECIFIED Qualifiers: Anemia type: unspecified type Qualified Code(s): D64.9 - Anemia, unspecified (6) Breast cancer in male Code(s): C50.929 - MALIGNANT NEOPLASM OF UNSP SITE OF UNSPECIFIED MALE BREAST (7) Coronary artery disease Code(s): I25.10 - ATHSCL HEART DISEASE OF [place] CORONARY ARTERY W/O ANG PCTRS Qualifiers: Coronary Disease-Associated Artery/Lesion type: [place] artery [place] vs. transplanted heart: [place] heart Associated angina: without angina Qualified Code(s): I25.10 - Atherosclerotic heart disease of [place] coronary artery without angina pectoris (8) Edema, peripheral Code(s): R60.9 - EDEMA, UNSPECIFIED (9) HTN (hypertension) Code(s): I10 - ESSENTIAL (PRIMARY) HYPERTENSION Qualifiers: Hypertension type: essential hypertension Qualified Code(s): I10 - Essential (primary) hypertension (10) Hyperlipidemia Code(s): E78.5 - HYPERLIPIDEMIA, UNSPECIFIED Qualifiers: Hyperlipidemia type: pure hypercholesterolemia Qualified Code(s): E78.00 - Pure hypercholesterolemia, unspecified; E78.0 - Pure hypercholesterolemia (11) Pulmonary hypertension Code(s): I27.2 - OTHER SECONDARY PULMONARY HYPERTENSION * DO NOT USE * (12) Sick sinus syndrome Code(s): I49.5 - SICK SINUS SYNDROME (13) Status post coronary artery stent placement Code(s): Z95.5 - PRESENCE OF CORONARY ANGIOPLASTY IMPLANT AND GRAFT (14) Supratherapeutic INR Code(s): R79.1 - ABNORMAL COAGULATION PROFILE (15) Type 2 diabetes mellitus Code(s): E11.9 - TYPE 2 DIABETES MELLITUS WITHOUT COMPLICATIONS Qualifiers: Diabetes mellitus complication status: with kidney complications Diabetes mellitus complication detail: with chronic kidney disease Chronic kidney disease stage: stage 3 (moderate) Assessment/Plan IMP ACUTE ON CHRONIC CHF BILATERAL EFFUSIONS R>L ? SECONDARY TO CHF,? MALIGNANT AFIB ASHD S/P STENTS S/P PPM ACUTE ON CHRONIC KIDNEY DISEASE H/O BREAST CA S/P R MASTECTOMY,S/P CHEMO PULMONARY HTN MITRAL AND TRICUSPID REGURG DM HTN HLD PLAN LASIX O2 COUMADIN D/C PLANNING DR HART
--- NOTE | 2018-02-15 13:54 | PATH ---
Cytology Non-Gynecological Report Patient Name: EFREN CORDOBA [facility]. Rec. #: [id number] /Age/Gender: 1935 (Age: 82) / M Account: [id number] Location: [address] [place] [address] Taken: 02/11/2018 Received: 02/14/2018 Reported: 02/15/2018 Physicians: Colleen Talavera MD Specimen(s) Received A: RIGHT PLEURAL FLUID B: RIGHT PLEURAL FLUID Clinical History Pleural effusion Final Diagnosis A & B. PLEURAL FLUID, RIGHT, THORACENTESIS: SATISFACTORY FOR EVALUATION NO MALIGNANT CELLS IDENTIFIED. MESOTHELIAL CELLS, RARE MACROPHAGES AND FEW LYMPHOCYTES PRESENT. Electronically Signed Tarah Mathis M.D. Gross Description A. Approximately 1500 cc of yellow fluid received fresh. One cytofunnel prepared and Pap stained. One cellblock prepared. B. Approximately 50 cc of yellow fluid received fixed in 50% alcohol. One cytofunnel prepared and Pap stained. One cellblock prepared.
== END 2018-02-14 15:31 | disposition home health service (06) | DRG 186 ==
LOC: JER 16:01 → JERBED 20:43 → OBSVTOIN 02-08 01:26 → J5S 02-08 03:24
PROVIDERS: ADMIT Internal Medicine; ATTEND Internal Medicine
PROC: 0W993ZX Drainage of Right Pleural Cavity, Percutaneous Approach, Diagnostic (ICD-10-PCS; principal; 2018-02-11)
DX: J90 Pleural effusion, not elsewhere classified (principal); I50.43 Acute on chronic combined systolic (congestive) and diastolic (congestive) heart failure; I13.0 Hypertensive heart and chronic kidney disease with heart failure and stage 1 through stage 4 chronic kidney disease, or unspecified chronic kidney disease; N17.9 Acute kidney failure, unspecified; N39.0 Urinary tract infection, site not specified; R18.8 Other ascites; I25.10 Atherosclerotic heart disease of native coronary artery without angina pectoris; D64.9 Anemia, unspecified; E11.22 Type 2 diabetes mellitus with diabetic chronic kidney disease; N18.3 Chronic kidney disease, stage 3 (moderate); I48.2 Chronic atrial fibrillation; E78.00 Pure hypercholesterolemia, unspecified; I27.20 Pulmonary hypertension, unspecified; N40.1 Benign prostatic hyperplasia with lower urinary tract symptoms; R33.8 Other retention of urine; I08.1 Rheumatic disorders of both mitral and tricuspid valves; E88.09 Other disorders of plasma-protein metabolism, not elsewhere classified; M10.9 Gout, unspecified; Z85.3 Personal history of malignant neoplasm of breast; Z95.0 Presence of cardiac pacemaker; Z95.5 Presence of coronary angioplasty implant and graft
CPT/HCPCS: 36415; 71045-TC-FY; 71260-TC; 74177-TC; 76775-TC; 76856-TC; 76942; 80048; 80053; 81003; 81015; 82042; 82150; 82550; 82945; 82962; 83615; 83690; 83735; 83880; 83986; 84100; 84157; 84478; 84484; 85025; 85027; 85610; 85730; 86850; 86900; 86901; 87070; 87075; 87086; 87102; 87116; 87205; 87206; 87210; 88108; 88305-TC; 93005; 93010; 93306-TC; 97116-GP; 97161-GP; 99283-25; G0378; J1644

== ENCOUNTER 2018-02-20 11:46 | Emergency (ER) | payer OTHER, MEDICARE ==
[2018-02-20 11:53] VITALS: BP 126/77; PULSE 69; TEMP 97.3; BMI 22.1
--- NOTE | 2018-02-20 12:47 | PDOC ---
History of Present Illness - General Chief Complaint: Revisit, Lab Variance Stated Complaint: INR HIGH Time Seen by Provider: 02/20/18 11:57 History Source: Patient, Old Records Exam Limitations: No Limitations - History of Present Illness Initial Comments: HPI: 82 y/o male presenting to [facility] ER complaining of supratherapeutic INR of 6. Not able to provide documentation of this result. Pt takes Coumadin for a-fib. PT/ INR was measured at home by home health care nurse. Pt denies acute complaints. Denies bleeding or other recent trauma. Denies recent illness or change in diet. PCP: Dr. Adán Martinez Medical Hx: - CAD s/p PCI stent - s/p Pacemaker Placement (2004) - AFib on Warfarin - HTN - HLD - Anemia - CHF - DM, - hx of breast CA s/p R mastectomy (2003) - Gout - CKD - R sided hernia Past History - Past Medical History Allergies/Adverse Reactions: Allergies Allergy/AdvReac Type Severity Reaction Status Date / Time levofloxacin [From Levaquin] Allergy Rash Verified 02/20/18 11:53 Home Medications: Ambulatory Orders Colchicine [Colcrys] 0.6 mg PO DAILY 03/27/15 Pantoprazole Sodium [Protonix] 40 mg PO DAILY 03/27/15 Sertraline HCl [Zoloft -] 50 mg PO DAILY 03/27/15 Simvastatin [Zocor -] 20 mg PO HS 03/27/15 Amlodipine Besylate [Norvasc -] 5 mg PO DAILY #30 tablet 09/27/15 Carvedilol [Coreg -] 25 mg PO BID #60 tablet 09/27/15 Polyethylene Glycol 3350 [Miralax 119 gm Btl -] 17 gm PO DAILY PRN #1 bottle Warfarin Na [Coumadin -] 5 mg PO DAILY@1800 #30 tablet 09/27/15 Furosemide [Lasix] 40 mg PO DAILY 30 Days #30 tablet 02/14/18 Tamsulosin HCl [Flomax -] 0.4 mg PO DAILY@0830 cap.er.24h 02/14/18 Anemia: Yes Asthma: No Cancer: Yes (S/P RIGHT BREAST CANCER;MASTECTOMY 2003) Cardiac Disorders: Yes (H/O A FIB 1999,PPM 2004) CVA: No COPD: No CHF: Yes Dementia: No Diabetes: Yes GI Disorders: No Disorders: No HTN: Yes Hypercholesterolemia: Yes Liver Disease: No Seizures: No Thyroid Disease: No - Surgical History Abdominal Surgery: No Appendectomy: No Cardiac Surgery: Yes (PACEMAKER) Cholecystectomy: No Lung Surgery: No Neurologic Surgery: No Orthopedic Surgery: No - Immunization History Immunization Up to Date: Yes - Suicide/Smoking/Psychosocial Hx Smoking Status: No Smoking History: Former smoker Have you smoked in the past 12 months: No Number of Cigarettes Smoked Daily: 0 Cigars Per Day: 0 Information on smoking cessation initiated: No Hx Alcohol Use: No Drug/Substance Use Hx: No Substance Use Type: None Hx Substance Use Treatment: No Review of Systems - Review of Systems Able to Perform ROS?: Yes Comments:: In addition to that documented in the HPI above, the additional ROS was obtained : Constitutional: Denies fevers or chills CV: Denies chest pain Resp: Denies SOB GI: Denies vomiting or diarrhea : Denies dysuria, hematuria, or urinary frequency Trauma: denies recent injury Heme: Endorses chronic bruising from Coumadin therapy, no active bleeding *Physical Exam - Vital Signs Last Vital Signs Temp Pulse Resp BP Pulse Ox 97.3 F L 69 18 126/77 100 02/20/18 11:51 02/20/18 11:51 02/20/18 11:51 02/20/18 11:51 02/20/18 11:51 - Physical Exam Comments: Constitutional: Nontoxic elderly male in no acute distress or obvious discomfort. Found semi-fowlers on hospital hallway bed. Alert and oriented x4. Answered all questions appropriately and completely. Speech was non-labored, non -pressured. Head: Normocephalic. No obvious external signs of trauma. Eyes: Sclerae white. EARS: Hearing grossly intact. NOSE: No nasal discharge. Neck: Supple, trachea is midline. Cardiovascular: Irregularly irregular rate and rhythm. No murmur, rubs, clicks, or gallops. Peripheral pulses: Radial pulses full. Respiratory: Breathing unlabored. Equal chest rise and fall. Clear to auscultation bilaterally. No stridor, no wheezing, no rhonchi. Neuro: Alert and oriented. Moving all four extremities spontaneously. Skin: Warm, dry, and intact. Multiple bruises of varying ages on upper and lower extremities. Psych: Affect: appropriate. Mood: normal. Moderate Sedation - Procedure Monitoring Vital Signs: Procedure Monitoring Vital Signs Temperature 97.3 F L 02/20/18 11:51 Pulse Rate 69 02/20/18 11:51 Respiratory Rate 18 02/20/18 11:51 Blood Pressure 126/77 02/20/18 11:51 O2 Sat by Pulse Oximetry (%) 100 02/20/18 11:51 Medical Decision Making - Medical Decision Making *Reviewed vital signs, nursing notes, and prior visit documentation (if available). 82 y/o male presenting with INR elevated to 6.91 without bleeding or other complaints. On Coumadin. 14:07 Telephone page sent for physician covering for Dr. Martinez via answering service. Awaiting call back. 14:[address] Martinez. Verbally appraised of the pts HPI, ED course, and current plan of management. Requests pt hold coumadin today and follow up with with clinic tomorrow. Discussed laboratory results with pt. Answered all questions. Provided return precautions. Pt expressed verbal understanding and agreement with plan to discharge home with outpatient follow up. *DC/Admit/Observation/Transfer Diagnosis at time of Disposition: Abnormal INR, Anticoagulated on Coumadin - Discharge Dispostion Disposition: HOME Condition at time of disposition: Good Decision to Admit order: No - Referrals Referrals: Adán Martinez MD [Staff Physician] - Garret Huang MD [Primary Care Provider] - - Patient Instructions Additional Instructions: You were seen today for an elevated INR. It was elevated to 6.91. This puts you at a high risk of bleeding. Be careful to not fall or brush your teeth with a lot of force. Do not take your Coumadin tonight. Call Dr. Reyes office tomorrow to follow up for further instruction. Go to the nearest emergency department if your condition worsens or you feel like you need additional emergency evaluation. - Post Discharge Activity
[2018-02-20 13:29] LABS: PROTHROMBIN TIME (PATIENT) 83.1 SEC (9.7-13.0)
[2018-02-20 13:49] LABS: INR 6.91 (0.83-1.09)
--- NOTE | 2018-02-20 14:05 | PDOC ---
Attending Attestation - HPI HPI: 02/20/18 14:31 The patient is a 82 year old male, with a significant past medical history of CAD (s/p PCI stent), AFib (on Warfarin), HTN, CHF, DM, breast CA (s/p mastectomy ), and CKD , who presents to the emergency department with, an at home INR of 6. Patient denies any currently symptoms present. He denies any recent fevers, chills, headache or dizziness. He denies any recent nausea, vomit, diarrhea or constipation. He denies any recent chest pain or shortness of breath. He denies any recent dysuria, frequency, urgency or hematuria. Allergies: Levofloxacin Past surgical history: PPM, R mastectomy 2003 Social History: Nonsmoker. Denies EtOH use and recreational drug use. Primary Care Physician: Garret Ahn <Ivelisse Parker - Last Filed: 02/20/18 14:31> - Resident Resident Name: Martín Sloan - ED Attending Attestation I have performed the following: I have examined & evaluated the patient, The case was reviewed & discussed with the resident, I agree w/resident's findings & plan, Exceptions are as noted - Physicial Exam PE: GENERAL: Awake, alert, and fully oriented, in no acute distress HEAD: No signs of trauma EYES: PERRLA, EOMI, sclera anicteric, conjunctiva clear ENT: Auricles normal inspection, hearing grossly normal, nares patent, oropharynx clear without exudates. Moist mucosa NECK: Normal ROM, supple, no lymphadenopathy, JVD, or masses LUNGS: Breath sounds equal, clear to auscultation bilaterally. No wheezes, and no crackles HEART: Regular rate and rhythm, normal S1 and S2, no murmurs, rubs or gallops ABDOMEN: Soft, nontender, normoactive bowel sounds. No guarding, no rebound. No masses EXTREMITIES: Normal range of motion, no edema. No clubbing or cyanosis. No cords, erythema, or tenderness NEUROLOGICAL: Cranial nerves II through XII grossly intact. Normal speech, normal gait. Motor and sensation intact SKIN: Warm, Dry, normal turgor, no rashes. No open lesions. - Medical Decision Making Pt with high INR, however, no bleeding gums, no open lesions. No anemic symptoms. Will DC home, as he has 24 hr care. D/w Dr. Martinez. <Saniya Heart - Last Filed: 02/20/18 14:55> Attestations - Attestations 02/20/18 14:31 Documentation prepared by Ivelisse Parker, acting as medical records auditor for Saniya Heart MD. <Ivelisse Parker - Last Filed: 02/20/18 14:31>
== END 2018-02-20 16:55 | disposition home or self-care (01) ==
LOC: SUPCPDRO 11:46 → JER 11:46
DX: D68.8 Other specified coagulation defects (principal); I25.10 Atherosclerotic heart disease of native coronary artery without angina pectoris; I13.0 Hypertensive heart and chronic kidney disease with heart failure and stage 1 through stage 4 chronic kidney disease, or unspecified chronic kidney disease; N18.9 Chronic kidney disease, unspecified; I50.9 Heart failure, unspecified; Z95.5 Presence of coronary angioplasty implant and graft; I48.91 Unspecified atrial fibrillation; Z79.01 Long term (current) use of anticoagulants; E11.9 Type 2 diabetes mellitus without complications; E78.5 Hyperlipidemia, unspecified; D64.9 Anemia, unspecified; M10.9 Gout, unspecified; Z95.0 Presence of cardiac pacemaker; Z85.3 Personal history of malignant neoplasm of breast; Z90.11 Acquired absence of right breast and nipple
CPT/HCPCS: 36415; 85610; 99281-25

== ENCOUNTER 2018-03-17 19:05 | Inpatient (IN) | payer OTHER, MEDICARE ==
--- NOTE | 2018-03-17 20:00 | PDOC ---
Attending Attestation - HPI HPI: 03/17/18 20:27 The patient is an 82 year old male with a significant past medical history of CAD (s/p PCI stent), AFib (on Warfarin), HTN, CHF, DM, breast CA (s/p mastectomy ), and CKD, who presents to the emergency department today complaining of mucous congestion for over a month. He states for the last week the mucus build up has been so severe that he has the feeling that he cant get it up and has associated nausea and vomiting. Patient also reports RLQ pain, which he states to be related to a hernia he has. The patient denies chest pain, shortness of breath, headache and dizziness. Denies fever, chills, diarrhea and constipation. Denies dysuria, frequency, urgency and hematuria. Allergies: Levofloxacin Past surgical history: PPM, R mastectomy 2004 Social History: None reported Primary Care Physician: Dr. Huang - Physicial Exam PE: 03/17/18 20:28 Agree with resident's exam. <Linda Quach - Last Filed: 03/17/18 20:27> - Resident Resident Name: Wan Reddy - ED Attending Attestation I have performed the following: I have examined & evaluated the patient, The case was reviewed & discussed with the resident, I agree w/resident's findings & plan - Critical Care Time Total Critical Care Time: 40 Critical Care Statement: The care of this patient involved high complexity decision making to prevent further life threatening deterioration of the patient 's condition and/or to evaluate & treat vital organ system(s) failure or risk of failure. - Medical Decision Making 03/18/18 00:36 82-year-old male with complaints of cough and abdominal pain CT scan was performed of the chest abdomen and pelvis and showed a large right pleural effusion as well as an area of incarcerated large bowel with no evidence of strangulation Case was discussed with the on-call surgeon, Dr. Hill who recommends ICU admission and will see the patient in the morning <Treva Sales - Last Filed: 03/18/18 00:37> Attestations - Attestations 03/17/18 20:28 Documentation prepared by Linda Quach, acting as medical hospital sales for Treva Sales DO. <Linda Quach - Last Filed: 03/17/18 20:27>
--- NOTE | 2018-03-17 20:17 | PDOC ---
History of Present Illness - General Chief Complaint: Pain, Acute Stated Complaint: ABDOMINAL PAIN Time Seen by Provider: 03/17/18 19:50 History Source: Patient Exam Limitations: No Limitations - History of Present Illness Initial Comments: 03/17/18 20:04 The patient is an 82M with a PMH of CAD (s/p PCI stent), AFib (on Warfarin), HTN , CHF, DM, breast CA (s/p mastectomy), and CKD who presents to the ER with complaints of 1 month of worsening mucous and 1 week of nausea and vomiting from the worsening sputum production with "feeling like it's stuck". He denies any CP, SOB, fever, chills, dysuria, and cough. Past History - Past Medical History Allergies/Adverse Reactions: Allergies Allergy/AdvReac Type Severity Reaction Status Date / Time levofloxacin [From Levaquin] Allergy Rash Verified 03/17/18 19:27 Home Medications: Ambulatory Orders Colchicine [Colcrys] 0.6 mg PO DAILY 03/27/15 Pantoprazole Sodium [Protonix] 40 mg PO DAILY 03/27/15 Sertraline HCl [Zoloft -] 50 mg PO DAILY 03/27/15 Simvastatin [Zocor -] 20 mg PO HS 03/27/15 Amlodipine Besylate [Norvasc -] 5 mg PO DAILY #30 tablet 09/27/15 Carvedilol [Coreg -] 25 mg PO BID #60 tablet 09/27/15 Polyethylene Glycol 3350 [Miralax 119 gm Btl -] 17 gm PO DAILY PRN #1 bottle Warfarin Na [Coumadin -] 5 mg PO DAILY@1800 #30 tablet 09/27/15 Furosemide [Lasix] 40 mg PO DAILY 30 Days #30 tablet 02/14/18 Tamsulosin HCl [Flomax -] 0.4 mg PO DAILY@0830 cap.er.24h 02/14/18 Anemia: Yes Asthma: No Cancer: Yes (S/P RIGHT BREAST CANCER;MASTECTOMY 2003) Cardiac Disorders: Yes (H/O A FIB 1999,PPM 2004) CVA: No COPD: No CHF: Yes Dementia: No Diabetes: Yes GI Disorders: No Disorders: No HTN: Yes Hypercholesterolemia: Yes Liver Disease: No Seizures: No Thyroid Disease: No - Surgical History Abdominal Surgery: No Appendectomy: No Cardiac Surgery: Yes (PACEMAKER) Cholecystectomy: No Lung Surgery: No Neurologic Surgery: No Orthopedic Surgery: No - Immunization History Immunization Up to Date: Yes - Suicide/Smoking/Psychosocial Hx Smoking Status: No Smoking History: Never smoked Have you smoked in the past 12 months: No Number of Cigarettes Smoked Daily: 0 Cigars Per Day: 0 Information on smoking cessation initiated: No Hx Alcohol Use: No Drug/Substance Use Hx: No Substance Use Type: None Hx Substance Use Treatment: No Review of Systems - Review of Systems Able to Perform ROS?: Yes Comments:: 03/17/18 20:32 GENERAL/CONSTITUTIONAL: No fever or chills. No weakness. HEAD, EYES, EARS, NOSE AND THROAT: Positive for No change in vision. No ear pain or discharge. CARDIOVASCULAR: No chest pain, palpitations, or lightheadedness. RESPIRATORY: Positive for mucous production. No cough, wheezing, shortness of breath, or hemoptysis. GASTROINTESTINAL: Positive for nausea, vomiting, and abdominal pain. GENITOURINARY: No dysuria, frequency, hematuria, or change in urination. MUSCULOSKELETAL: No joint or muscle swelling or pain. No neck or back pain. SKIN: No rash or lesions. NEUROLOGIC: No headache, numbness, tingling, focal weakness, loss of consciousness, or change in strength/sensation. Is the patient limited [place] proficient: No *Physical Exam - Vital Signs Last Vital Signs Temp Pulse Resp BP Pulse Ox 98.9 F 92 H 18 133/115 H 96 03/17/18 19:27 03/17/18 19:27 03/17/18 19:27 03/17/18 19:27 03/17/18 19:27 - Physical Exam Comments: 03/17/18 20:34 GENERAL: Well developed, well nourished. Awake and alert. No acute distress. HEENT: Normocephalic, atraumatic. Hearing grossly normal. Moist mucous membranes. PERRLA, EOMI. No conjunctival pallor. Sclera are non-icteric. NECK: Supple. Full ROM. No JVD. CARDIOVASCULAR: Regular rate and rhythm. No murmurs, rubs, or gallops. PULMONARY: No evidence of respiratory distress. Decreased lung sounds on the R side. ABDOMINAL: Soft. Large hernia appreciated on R side, TTP. No rebound or guarding. GENITOURINARY: No CVA tenderness bilaterally. MUSCULOSKELETAL: Normal range of motion at all joints. No bony deformities or tenderness. EXTREMITIES: No cyanosis. No clubbing. No edema. No calf tenderness or swelling. SKIN: Warm and dry. Normal capillary refill. No rashes. No jaundice. NEUROLOGICAL: Alert, awake, appropriate. Cranial nerves 2-12 grossly intact. Normal speech. PSYCHIATRIC: Cooperative. Good eye contact. Appropriate mood and affect. Moderate Sedation - Procedure Monitoring Vital Signs: Procedure Monitoring Vital Signs Temperature 98.9 F 03/17/18 19:27 Pulse Rate 92 H 03/17/18 19:27 Respiratory Rate 18 03/17/18 19:27 Blood Pressure 133/115 H 03/17/18 19:27 O2 Sat by Pulse Oximetry (%) 96 03/17/18 19:27 ED Treatment Course - LABORATORY CBC & Chemistry Diagram: 03/17/18 20:25 03/17/18 20:25 - RADIOLOGY Radiology Studies Ordered: Category Date Time Status ABDOMEN & PELVIS CT WITH CONTR [CT] Stat CT Scan 03/17/18 19:[address] WITHOUT CONTRAST [CT] Stat CT Scan 03/17/18 19:56 Ordered Medical Decision Making - Medical Decision Making 03/17/18 20:38 The patient is an 82M with MMP who presents to the ER with worsening sputum production and decreased lung sounds concerning for PNA, pleural effusion, sepsis. Pending labs and imaging. 03/17/18 21:08 CBC WNL. Pending CMP. 03/17/18 22:33 Cr 2.2, GFR 28. Will cancel contrast and do noncon CT's. 03/17/18 22:34 Influenza negative. 03/17/18 22:42 Lactic acid of 3.2. Will give hydration. 03/18/18 00:30 D/w Dr. Hill. I informed him that he has an incarcerated hernia with elevated lactate, concerning for bowel ischemia. He agrees with ICU admission and states he will see the patient later in the morning. 03/18/18 01:30 Pt endorsed to ICU resident for ICU admission. Pending callback from hospitalist. 03/18/18 02:01 Pt endorsed to [facility] Jimenez for admission under Dr. Martinez. *DC/Admit/Observation/Transfer Diagnosis at time of Disposition: Incarcerated hernia - Discharge Dispostion Condition at time of disposition: Critical Decision to Admit order: Yes - Referrals - Patient Instructions - Post Discharge Activity
[2018-03-17 20:40] LABS: BASO % 0.4 % (0-2.0); EOS % 0.3 % (0-4.5); HEMATOCRIT 33.4 % (35.4-49); HEMOGLOBIN 11.3 GM/dL (11.7-16.9); LYMPH % 10.7 % (8-40); MCH 32.8 pg (25.7-33.7); MCHC 33.8 g/dl (32.0-35.9); MEAN CELL VOLUME 96.9 fl (80-96); MEAN PLT VOLUME 9.5 fl (7.5-11.1); MONO % 15.7 % (3.8-10.2); NEUT % 72.9 % (42.8-82.8); PLATELET COUNT 200 K/MM3 (134-434); RBC 3.45 M/mm3 (4.00-5.60); RDW 15.4 % (11.9-15.9); WHITE BLOOD COUNT 7.4 K/mm3 (4.0-10.0)
[2018-03-17] MEDS ORDERED: ACETAMINOPHEN INJECTION 100 ML IVPB ONE (20:59)
[2018-03-17] MEDS ORDERED: ACETAMINOPHEN 1000 MG/100 ML VIAL (NON FORMULARY) IVPB ONE (20:59)
[2018-03-17 21:12] LABS: PROTHROMBIN TIME (PATIENT) 52.4 SEC (9.7-13.0)
[2018-03-17 21:15] LABS: ACTIVATED PTT 43.9 SECONDS (25.2-36.5)
[2018-03-17 21:20] LABS: INR 4.37 (0.83-1.09)
[2018-03-17 21:27] LABS: ALBUMIN 2.6 g/dl (3.4-5.0); ALK PHOS 134 U/L (45-117); ANION GAP 10 MMOL/L (8-16); BILIRUBIN,TOTAL 0.6 mg/dL (0.2-1); BLOOD UREA NITROGEN 43 mg/dL (7-18); CALCIUM 8.3 mg/dL (8.5-10.1); CHLORIDE 99 mmol/L (98-107); CO2 28 mmol/L (21-32); CREATININE 2.2 mg/dL (0.55-1.3); GLUCOSE,RANDOM 60 mg/dL (74-106); POTASSIUM 5.1 mmol/L (3.5-5.1); SGOT/AST 23 U/L (15-37); SGPT/ALT 17 U/L (13-61); SODIUM 137 mmol/L (136-145); TOT PROT 6.1 g/dl (6.4-8.2)
[2018-03-17] MEDS ORDERED: SODIUM CHLORIDE 0.9% 1000 ML INFUS.BAG IV ONE (22:41)
--- NOTE | 2018-03-18 03:25 | HP ---
Admitting History and Physical - Primary Care Physician PCP: Garret Huang - Admission Chief Complaint: Abdominal Pain, Nausea, Vomiting, Cough History of Present Illness: This is a 82 y/o man with a PMHx of: CAD s/p PCI Stent, Afib (on warfarin), CHF , HTN, DM, CKD, Breast Ca (s/p R- Mastectomy, Chemotherapy, 2003). Who presents to the ED with N/V abdominal pain x 1 week, cough and chest congestion x 1 month. History Source: Patient, Medical Record Limitations to Obtaining History: Poor Historian - Past Medical History Cardiovascular: Yes: AFIB, CAD, CHF, HTN, Hyperlipdemia, Mitral Insufficiency, Pulmonary Hypertension, Other (LV systolic dysfunction with class 2 NYHA classification LV failure) Renal/: Yes: Renal Inusuff Heme/Onc: Yes: Cancer (Breast CA s/p mastectomy and chemotherapy) Endocrine: Yes: Diabetes Mellitus - Past Surgical History Past Surgical History: Yes: Mastectomy, Permanent Pacemaker - Smoking History Smoking history: Never smoked Have you smoked in the past 12 months: No Aproximately how many cigarettes per day: 0 - Alcohol/Substance Use Hx Alcohol Use: No History of Substance Use: reports: None - Social History History of Recent Travel: No Home Medications - Allergies Allergies/Adverse Reactions: Allergies Allergy/AdvReac Type Severity Reaction Status Date / Time levofloxacin [From Levaquin] Allergy Rash Verified 03/17/18 19:27 - Home Medications Home Medications: Ambulatory Orders Colchicine [Colcrys] 0.6 mg PO DAILY 03/27/15 Pantoprazole Sodium [Protonix] 40 mg PO DAILY 03/27/15 Sertraline HCl [Zoloft -] 50 mg PO DAILY 03/27/15 Simvastatin [Zocor -] 20 mg PO HS 03/27/15 Amlodipine Besylate [Norvasc -] 5 mg PO DAILY #30 tablet 09/27/15 Carvedilol [Coreg -] 25 mg PO BID #60 tablet 09/27/15 Polyethylene Glycol 3350 [Miralax 119 gm Btl -] 17 gm PO DAILY PRN #1 bottle Warfarin Na [Coumadin -] 5 mg PO DAILY@1800 #30 tablet 09/27/15 Furosemide [Lasix] 40 mg PO DAILY 30 Days #30 tablet 02/14/18 Tamsulosin HCl [Flomax -] 0.4 mg PO DAILY@0830 cap.er.24h 02/14/18 Family Disease History - Family Disease History Family History: Unable to Obtain Review of Systems - Review of Systems Constitutional: reports: Loss of Appetite Eyes: reports: No Symptoms HENT: reports: No Symptoms Neck: reports: No Symptoms Cardiovascular: reports: No Symptoms Respiratory: reports: Cough Gastrointestinal: reports: Abdominal Pain, Nausea, Vomiting Genitourinary: reports: No Symptoms Breasts: reports: No Symptoms Reported Musculoskeletal: reports: No Symptoms Integumentary: reports: No Symptoms Neurological: reports: No Symptoms Endocrine: reports: No Symptoms Hematology/Lymphatic: reports: No Symptoms Psychiatric: reports: No Symptoms Physical Examination Vital Signs: Vital Signs Temperature 98.9 F 03/17/18 19:27 Pulse Rate 55 L 03/17/18 22:35 Respiratory Rate 18 03/17/18 22:35 Blood Pressure 109/91 03/17/18 22:35 O2 Sat by Pulse Oximetry (%) 95 03/17/18 22:35 Constitutional: Yes: Mild Distress, Poor Hygeine Eyes: Yes: WNL, Conjunctiva Clear, EOM Intact, PERRL HENT: Yes: WNL, Atraumatic, Normocephalic Neck: Yes: WNL, Supple, Trachea Midline Cardiovascular: Yes: Pulse Irregular, S1, S2, Other (PM) Respiratory: Yes: Cough (productive yellow-brown phlegm), Diminished (R- lobes) , Rhonchi Gastrointestinal: Yes: Normal Bowel Sounds, Hernia, Tenderness Edema: No Peripheral Pulses WNL: Yes Neurological: Yes: Alert, Oriented, Cran Nerves II-XII Intact ...Motor Strength: WNL Psychiatric: Yes: Alert, Oriented Labs: CBC, BMP 03/17/18 20:25 03/17/18 20:25 Laboratory Results - last 24 hr 03/17/18 03/17/18 03/17/18 20:25 20:25 20:25 WBC 7.4 RBC 3.45 L Hgb 11.3 L Hct 33.4 L MCV 96.9 H MCH 32.8 MCHC 33.8 RDW 15.4 Plt Count 200 D MPV 9.5 Absolute Neuts (auto) 5.4 Neutrophils % 72.9 Lymphocytes % 10.7 D Monocytes % 15.7 H Eosinophils % 0.3 Basophils % 0.4 Nucleated RBC % 0 PT with INR 52.40 H INR 4.37 H* PTT (Actin FS) 43.9 H Sodium 137 Potassium 5.1 Chloride 99 Carbon Dioxide 28 Anion Gap 10 BUN 43 H Creatinine 2.2 H Creat Clearance w eGFR 28.87 Random Glucose 60 L Lactic Acid Calcium 8.3 L Total Bilirubin 0.6 AST 23 ALT 17 Alkaline Phosphatase 134 H Creatine Kinase 59 Troponin I 0.02 Total Protein 6.1 L Albumin 2.6 L Influenza A (Rapid) Influenza B (Rapid) Blood Type Antibody Screen 03/17/18 03/17/18 03/17/18 20:30 20:30 21:15 WBC RBC Hgb Hct MCV MCH MCHC RDW Plt Count MPV Absolute Neuts (auto) Neutrophils % Lymphocytes % Monocytes % Eosinophils % Basophils % Nucleated RBC % PT with INR INR PTT (Actin FS) Sodium Potassium Chloride Carbon Dioxide Anion Gap BUN Creatinine Creat Clearance w eGFR Random Glucose Lactic Acid 3.2 H* Calcium Total Bilirubin AST ALT Alkaline Phosphatase Creatine Kinase Troponin I Total Protein Albumin Influenza A (Rapid) Negative Influenza B (Rapid) Negative Blood Type B POSITIVE Antibody Screen Negative Intake & Output 03/15/18 03/16/18 03/17/18 03/18/18 23:59 23:59 23:59 23:59 Weight 61.235 kg Imaging - Results Cat Scan: Image Reviewed (CT scan was performed of the chest abdomen and pelvis and showed a large right pleural effusion as well as an area of incarcerated large bowel with no evidence of strangulation) EKG: Image Reviewed (Afib 94bpm with PVCs QT/QTc 364/457) Problem List - Problems (1) Incarcerated hernia Code(s): K46.0 - UNSP ABDOMINAL HERNIA WITH OBSTRUCTION, WITHOUT GANGRENE (2) Vomiting Code(s): R11.10 - VOMITING, UNSPECIFIED (3) Supratherapeutic INR Code(s): R79.1 - ABNORMAL COAGULATION PROFILE (4) Acute on chronic renal failure Code(s): N17.9 - ACUTE KIDNEY FAILURE, UNSPECIFIED; N18.9 - CHRONIC KIDNEY DISEASE, UNSPECIFIED (5) Afib Code(s): I48.91 - UNSPECIFIED ATRIAL FIBRILLATION Qualifiers: Atrial fibrillation type: chronic Qualified Code(s): I48.2 - Chronic atrial fibrillation (6) Pleural effusion, right Code(s): J90 - PLEURAL EFFUSION, NOT ELSEWHERE CLASSIFIED (7) Coronary artery disease Code(s): I25.10 - ATHSCL HEART DISEASE OF [place] CORONARY ARTERY W/O ANG PCTRS Qualifiers: Coronary Disease-Associated Artery/Lesion type: [place] artery [place] vs. transplanted heart: [place] heart Associated angina: without angina Qualified Code(s): I25.10 - Atherosclerotic heart disease of [place] coronary artery without angina pectoris (8) HTN (hypertension) Code(s): I10 - ESSENTIAL (PRIMARY) HYPERTENSION Qualifiers: Hypertension type: essential hypertension Qualified Code(s): I10 - Essential (primary) hypertension (9) Hyperlipidemia Code(s): E78.5 - HYPERLIPIDEMIA, UNSPECIFIED Qualifiers: Hyperlipidemia type: pure hypercholesterolemia Qualified Code(s): E78.00 - Pure hypercholesterolemia, unspecified; E78.0 - Pure hypercholesterolemia (10) Pacemaker Code(s): Z95.0 - PRESENCE OF CARDIAC PACEMAKER (11) Pulmonary hypertension Code(s): I27.2 - OTHER SECONDARY PULMONARY HYPERTENSION * DO NOT USE * (12) Type 2 diabetes mellitus Code(s): E11.9 - TYPE 2 DIABETES MELLITUS WITHOUT COMPLICATIONS Qualifiers: Diabetes mellitus complication status: with kidney complications Diabetes mellitus complication detail: with chronic kidney disease Chronic kidney disease stage: stage 3 (moderate) Assessment/Plan 82 y/o man with a PMHx of: HTN, CAD s/p PCI Stent), Afib (on warfarin), CHF, DM , CKD, Breast Ca (s/p R- Mastectomy, Chemotherapy, 2003). Admitted to ICU for Incarcerated Hernia, Pleural Effusion, Supratherapeutic INR for further evaluation of their emergent condition. Plan: 1. GI: Incarcerated Hernia Admit to ICU Continue cardiac monitoring CTAP- showed a large right pleural effusion as well as an area of incarcerated large bowel with no evidence of strangulation Appreciate Surgical consult- Dr. Hill aware per ED resident will see in am NPO LR 1.5L given in ED Lactic Acid 2.9 possibly due to Sepsis vs ?mesenteric ischemia Trend Lactic Acid, treat accordingly Patient has LV systolic dysfunction with class 2 NYHA classification LV failure Continue gentle IVF monitoring judiciously secondary to HF Monitor CBC, BMP 2. Pulmonary: Pleural Effusion Cough CT Chest- Large right sided pleural effusion, compressive atelectasis to right lower lobe and right middle lobe. Small left sided pleural effusion no lung nodules, masses or infiltrates identified Appreciate Pulm consult Consider IR O2 3. Hematology: INR supratherapeutic 4.37 Hold warfarin Serial INRs 4. Cardiovascular: Afib CHF HTN CAD s/p PCI Stent EKG- Afib with PVCs [id number] Appreciate Cardiology consult- surgical clearance Hold warfarin secondary to supratherapuetic INR Serial INRs Monitor BP Hold po meds secondary to probable surgery 5. Nephrology: CKD Cr 2.2 at baseline (1.1-2.2) Monitor BMPs Consider Nephrology consult 6.Endocrinology: Hypoglycemia D50 prn Monitor BGMs Hold ISS secondary to NPO FEN LR@42ml/hr Monitor Lytes prn NPO DVT ppx SCDs Hold warfarin 2/2 Supratherapeutic Dispo: Requires Inpatient Care Visit type - Emergency Visit Emergency Visit: Yes ED Registration Date: 03/17/18 Care time: The patient presented to the Emergency Department on the above date and was hospitalized for further evaluation of their emergent condition. - New Patient This patient is new to me today: Yes Date on this admission: 03/18/18 - Critical Care Critical Care patient: Yes Total Critical Care Time (in minutes): 35 Critical Care Statement: The care of this patient involved high complexity decision making to prevent further life threatening deterioration of the patient 's condition and/or to evaluate & treat vital organ system(s) failure or risk of failure.
--- NOTE | 2018-03-18 04:04 | CONSULT ---
Consult - Past Medical History Cardio/Vascular: Yes: AFIB, CAD, CHF, HTN, Hyperlipdemia, Mitral Insufficiency, Pulmonary Hypertension, Other (LV systolic dysfunction with class 2 NYHA classification LV failure) Renal/: Yes: Renal Inusuff Endocrine: Yes: Diabetes Mellitus - Past Surgical History Past Surgical History: Yes: Mastectomy, Permanent Pacemaker - Alcohol/Substance Use Hx Alcohol Use: No - Smoking History Smoking history: Never smoked Have you smoked in the past 12 months: No Aproximately how many cigarettes per day: 0 <Gricelda Mcnulty - Last Filed: 03/18/18 10:30> Home Medications <Gricelda Mcnulty - Last Filed: 03/18/18 10:30> <Gordy North - Last Filed: 03/18/18 13:08> - Allergies Allergies/Adverse Reactions: Allergies Allergy/AdvReac Type Severity Reaction Status Date / Time levofloxacin [From Levaquin] Allergy Rash Verified 03/17/18 19:27 - Home Medications Home Medications: Ambulatory Orders Colchicine [Colcrys] 0.6 mg PO DAILY 03/27/15 Pantoprazole Sodium [Protonix] 40 mg PO DAILY 03/27/15 Sertraline HCl [Zoloft -] 50 mg PO DAILY 03/27/15 Simvastatin [Zocor -] 20 mg PO HS 03/27/15 Amlodipine Besylate [Norvasc -] 5 mg PO DAILY #30 tablet 09/27/15 Carvedilol [Coreg -] 25 mg PO BID #60 tablet 09/27/15 Polyethylene Glycol 3350 [Miralax 119 gm Btl -] 17 gm PO DAILY PRN #1 bottle Warfarin Na [Coumadin -] 5 mg PO DAILY@1800 #30 tablet 09/27/15 Furosemide [Lasix] 40 mg PO DAILY 30 Days #30 tablet 02/14/18 Tamsulosin HCl [Flomax -] 0.4 mg PO DAILY@0830 cap.er.24h 02/14/18 Physical Exam Vital Signs: Vital Signs Temperature 98.9 F 03/17/18 19:27 Pulse Rate 55 L 03/17/18 22:35 Respiratory Rate 18 03/17/18 22:35 Blood Pressure 109/91 03/17/18 22:35 O2 Sat by Pulse Oximetry (%) 95 03/17/18 22:35 Labs: CBC, BMP 03/17/18 20:25 <Gricelda Mcnulty - Last Filed: 03/18/18 10:30> Vital Signs: Vital Signs Temperature 98.0 F 03/18/18 11:35 Pulse Rate 92 H 03/18/18 11:35 Respiratory Rate 16 03/18/18 11:35 Blood Pressure 150/71 03/18/18 11:35 O2 Sat by Pulse Oximetry (%) 97 03/18/18 11:35 Labs: CBC, BMP 03/18/18 11:23 03/18/18 11:23 <Gordy North - Last Filed: 03/18/18 13:08> Assessment/Plan 82 yr old with hx of pleural effusions, afib on warfarin, HTN, DM, hx of breast CA presented with sob and abdominal pain found to have incarcerated hernia and elevated INR. CT w/o acute signs of inflammation. Patient is breathing comfortably on room air without c/o abdominal pain, and stable vital signs. He is stable for monitoring on med/surg floor pending any acute changes in medical condition. Thank you for this consultive opportunity. <Gricelda Mcnulty - Last Filed: 03/18/18 10:30> See follow up note: 03/18/2018. Dr North <Gordy North - Last Filed: 03/18/18 13:08>
[2018-03-18] MEDS ORDERED: SODIUM CHLORIDE 500 ML IV STA (06:18)
[2018-03-18] MEDS ORDERED: LACTATED RINGERS SOLUTION 1000 ML INFUS.BAG IV ONE ×2 (06:23→22:42)
[2018-03-18] MEDS ORDERED: DEXTROSE 50%-WATER - 25 GM/50 ML VIAL IVPUSH ONE (06:32)
[2018-03-18] MEDS ORDERED: DEXTROSE 50%-WATER 25 GM/50 ML DISP.SYRIN ONE (06:33)
[2018-03-18] MEDS: LACTATED RINGERS SOLUTION 1,000 ML/1,000 ML INFUS.BAG IV SCH (06:39)
[2018-03-18 07:06] LABS: BASO % 0.1 % (0-2.0); EOS % 0.2 % (0-4.5); HEMATOCRIT 30.6 % (35.4-49); HEMOGLOBIN 10.3 GM/dL (11.7-16.9); LYMPH % 15.2 % (8-40); MCH 32.5 pg (25.7-33.7); MCHC 33.7 g/dl (32.0-35.9); MEAN CELL VOLUME 96.4 fl (80-96); MONO % 12.3 % (3.8-10.2); NEUT % 72.2 % (42.8-82.8); PLATELET COUNT 182 K/MM3 (134-434); RBC 3.17 M/mm3 (4.00-5.60); RDW 15.3 % (11.9-15.9); WHITE BLOOD COUNT 5.7 K/mm3 (4.0-10.0)
[2018-03-18 07:41] LABS: ALBUMIN 2.4 g/dl (3.4-5.0); ALK PHOS 119 U/L (45-117); ANION GAP 8 MMOL/L (8-16); BILIRUBIN,TOTAL 0.5 mg/dL (0.2-1); BLOOD UREA NITROGEN 45 mg/dL (7-18); CALCIUM 7.9 mg/dL (8.5-10.1); CHLORIDE 99 mmol/L (98-107); CO2 28 mmol/L (21-32); CREATININE 2.4 mg/dL (0.55-1.3); GLUCOSE,RANDOM 265 mg/dL (74-106); POTASSIUM 5.3 mmol/L (3.5-5.1); SGOT/AST 20 U/L (15-37); SGPT/ALT 16 U/L (13-61); SODIUM 135 mmol/L (136-145); TOT PROT 5.6 g/dl (6.4-8.2)
[2018-03-18] MEDS ORDERED: MORPHINE SULFATE 2 MG/ML VIAL IVPUSH ONE (08:52)
[2018-03-18] MEDS ORDERED: MORPHINE SULFATE 2 MG/ML VIAL ONE (09:00)
[2018-03-18 09:04] LABS: PROTHROMBIN TIME (PATIENT) 61.4 SEC (9.7-13.0)
[2018-03-18 09:26] LABS: INR 5.12 (0.83-1.09)
[2018-03-18 10:02] LABS: ANISOCYTOSIS 1+; MACROCYTOSIS 1+; OVALOCYTE 1+; PLATELET ESTIMATE NORMAL
--- NOTE | 2018-03-18 10:26 | CON.CARD ---
Consult Consult Specialty:: Cardiology Referred by:: Adán Martinez MD Reason for Consultation:: Cough, dyspnea - History of Present Illness Chief Complaint: Cough, dyspnea History of Present Illness: Patient is an 82 year old male with underlying history of CAD, s/p PCI/stent, angina pectoris, systolic LV dysfunction with chronic class 2 NYHA classification LV failure, persistent AF [id number] score of 6 on chronic anticoagulation with Coumadin, sinus node dysfunction, AV block, s/p PPM, advanced pulmonary HTN, mitral valve regurgitation, tricuspid valve regurgitation, HTN/HCVD, DM, hypercholesterolemia, breast CA post mastectomy post chemotherapy, CKD and pleural effusion who presents with with N/V abdominal pain, cough and chest congestion. Chest CT shows persistent of large right sided pleural effusion with compressive ATX, small left effusion, abd CT shows incarcerated right-sided spigelian hernia w/o strangulation. He reports dyspnea, but denies paroxysmal nocturnal dyspnea or orthopnea, LE edema, near or true syncope, palpitations. He denies fever or chills. He denies headache or lightheadedness. - History Source History Provided By: Patient Limitations to Obtaining History: No Limitations - Past Medical History Cardio/Vascular: Yes: AFIB, CAD, CHF, HTN, Hyperlipdemia, Mitral Insufficiency, Pulmonary Hypertension, Other (LV systolic dysfunction with class 2 NYHA classification LV failure) Renal/: Yes: Renal Inusuff Endocrine: Yes: Diabetes Mellitus - Past Surgical History Past Surgical History: Yes: Mastectomy, Permanent Pacemaker, Stent - Alcohol/Substance Use Hx Alcohol Use: No History of Substance Use: reports: None - Smoking History Smoking history: Never smoked Have you smoked in the past 12 months: No Aproximately how many cigarettes per day: 0 - Social History History of Recent Travel: No Home Medications - Allergies Allergies/Adverse Reactions: Allergies Allergy/AdvReac Type Severity Reaction Status Date / Time levofloxacin [From Levaquin] Allergy Rash Verified 03/17/18 19:27 - Home Medications Home Medications: Ambulatory Orders Colchicine [Colcrys] 0.6 mg PO DAILY 03/27/15 Pantoprazole Sodium [Protonix] 40 mg PO DAILY 03/27/15 Sertraline HCl [Zoloft -] 50 mg PO DAILY 03/27/15 Simvastatin [Zocor -] 20 mg PO HS 03/27/15 Amlodipine Besylate [Norvasc -] 5 mg PO DAILY #30 tablet 09/27/15 Carvedilol [Coreg -] 25 mg PO BID #60 tablet 09/27/15 Polyethylene Glycol 3350 [Miralax 119 gm Btl -] 17 gm PO DAILY PRN #1 bottle Warfarin Na [Coumadin -] 5 mg PO DAILY@1800 #30 tablet 09/27/15 Furosemide [Lasix] 40 mg PO DAILY 30 Days #30 tablet 02/14/18 Tamsulosin HCl [Flomax -] 0.4 mg PO DAILY@0830 cap.er.24h 02/14/18 Review of Systems - Review of Systems Respiratory: reports: Cough, SOB, Wheezing Gastrointestinal: reports: Nausea, Vomiting Vital Signs: Vital Signs Temperature 97.5 F L 03/18/18 09:18 Pulse Rate 84 03/18/18 09:28 Respiratory Rate 18 03/18/18 09:18 Blood Pressure 128/79 03/18/18 09:18 O2 Sat by Pulse Oximetry (%) 96 03/18/18 09:28 Constitutional: Yes: No Distress, Calm, Thin Neck: Yes: Supple Respiratory: Yes: Regular, Diminished, On Nasal O2 Gastrointestinal: Yes: Soft, Hypoactive Bowel Sounds, Other (Right-sided hernia) Cardiovascular: Yes: Pulse Irregular JVD: No Carotid Bruit: No Heart Sounds: Yes: S1, S2 Murmur: Yes: Systolic Murmur, Grade 2 Edema: No - Other Data Labs, Other Data: CBC, BMP 03/18/18 06:52 03/18/18 06:52 INR, PTT INR 5.12 (0.83-1.09) H* 03/18/18 06:52 Troponin, BNP 03/17/18 03/18/18 20:25 06:52 Troponin I 0.02 0.02 Troponin, BNP 03/17/18 03/18/18 20:25 06:52 Troponin I 0.02 0.02 Afib occ PVC Echo: Report Reviewed Prior Cardiac Procedures: PTCA with Stent Ejection Fraction %: LVEF < 40 % Problem List - Problems (1) Incarcerated hernia Code(s): K46.0 - UNSP ABDOMINAL HERNIA WITH OBSTRUCTION, WITHOUT GANGRENE (2) Acute on chronic renal failure Code(s): N17.9 - ACUTE KIDNEY FAILURE, UNSPECIFIED; N18.9 - CHRONIC KIDNEY DISEASE, UNSPECIFIED Qualifiers: Chronic kidney disease stage: stage 3 (moderate) (3) Afib Code(s): I48.91 - UNSPECIFIED ATRIAL FIBRILLATION Qualifiers: Atrial fibrillation type: persistent Qualified Code(s): I48.1 - Persistent atrial fibrillation (4) Anemia Code(s): D64.9 - ANEMIA, UNSPECIFIED Qualifiers: Anemia type: unspecified type Qualified Code(s): D64.9 - Anemia, unspecified (5) Anticoagulated on Coumadin Code(s): Z79.01 - [employer] (CURRENT) USE OF ANTICOAGULANTS (6) Coronary artery disease Code(s): I25.10 - ATHSCL HEART DISEASE OF [place] CORONARY ARTERY W/O ANG PCTRS Qualifiers: Coronary Disease-Associated Artery/Lesion type: [place] artery [place] vs. transplanted heart: [place] heart Associated angina: without angina Qualified Code(s): I25.10 - Atherosclerotic heart disease of [place] coronary artery without angina pectoris (7) HTN (hypertension) Code(s): I10 - ESSENTIAL (PRIMARY) HYPERTENSION Qualifiers: Hypertension type: essential hypertension Qualified Code(s): I10 - Essential (primary) hypertension (8) Hyperlipidemia Code(s): E78.5 - HYPERLIPIDEMIA, UNSPECIFIED Qualifiers: Hyperlipidemia type: pure hypercholesterolemia Qualified Code(s): E78.00 - Pure hypercholesterolemia, unspecified; E78.0 - Pure hypercholesterolemia (9) Pacemaker Code(s): Z95.0 - PRESENCE OF CARDIAC PACEMAKER (10) Pleural effusion, right Code(s): J90 - PLEURAL EFFUSION, NOT ELSEWHERE CLASSIFIED (11) Pulmonary hypertension Code(s): I27.2 - OTHER SECONDARY PULMONARY HYPERTENSION * DO NOT USE * (12) Sick sinus syndrome Code(s): I49.5 - SICK SINUS SYNDROME (13) Status post coronary artery stent placement Code(s): Z95.5 - PRESENCE OF CORONARY ANGIOPLASTY IMPLANT AND GRAFT (14) Supratherapeutic INR Code(s): R79.1 - ABNORMAL COAGULATION PROFILE (15) Systolic and diastolic CHF, acute on chronic Code(s): I50.43 - ACUTE ON CHRONIC COMBINED SYSTOLIC AND DIASTOLIC HRT FAIL (16) Type 2 diabetes mellitus Code(s): E11.9 - TYPE 2 DIABETES MELLITUS WITHOUT COMPLICATIONS Qualifiers: Diabetes mellitus complication status: with kidney complications Diabetes mellitus complication detail: with chronic kidney disease Chronic kidney disease stage: stage 3 (moderate) Assessment/Plan 02/09/2018 Echo: Normal LV size with severely decreased LV fxn, severe TR, severe pulm HTN, pacer in RV 1. Incarcerated spigelian hernia w/o strangulation 2. Right pleural effusion with underlying history of breast CA post mastectomy and chemotherapy h/o thoracentesis 3. Chronic systolic heart failure 4. CAD post PCI/stent angina pectoris 5. Persistent atrial fibrillation on A/C, [id number] score of 6 with supratherapeutic INR 5. AV block s/p PPM 6. Mitral valve and tricuspid valve regurgitation 7. HTN/HCVD 8. DM 9. Hypercholesterolemia 10. Acute on CKD with hyperkalemia 11. Pre-operative cardiovascular evaluation PLAN: 1. Bowel rest, judicious hydration, surgical evaluation 2. Hold a/c with Coumadin pending possible OR 2. Continue Carvedilol 25 bid 3. Continue Amlodipine 5 qd 4. Continue Lipitor 10 qhs 5. Resume Valsartan and diuretics once renal function stabilizes/at baseline with close monitoring of renal function and potassium 6. Consider repeat right thoracentesis of right effusion prior to surgery and when INR acceptable 7. Thank you for consultative opportunity, patient follows up with Dr. Torres as outpatient
[2018-03-18] MEDS ORDERED: MORPHINE SULFATE 2 MG/ML VIAL IVPUSH PRN (11:18)
[2018-03-18] MEDS ORDERED: DEXTROSE 5%-0.45% SALINE 1,000 ML IV SCH (11:30)
[2018-03-18 12:00] LABS: BASO % 0.3 % (0-2.0); EOS % 0.3 % (0-4.5); HEMATOCRIT 32.2 % (35.4-49); HEMOGLOBIN 10.9 GM/dL (11.7-16.9); LYMPH % 15.5 % (8-40); MCH 33.1 pg (25.7-33.7); MEAN CELL VOLUME 97.2 fl (80-96); MEAN PLT VOLUME 9.9 fl (7.5-11.1); NEUT % 67.9 % (42.8-82.8); PLATELET COUNT 197 K/MM3 (134-434); RBC 3.31 M/mm3 (4.00-5.60); RDW 15.8 % (11.9-15.9); WHITE BLOOD COUNT 6.3 K/mm3 (4.0-10.0)
--- NOTE | 2018-03-18 12:06 | PN ---
Progress Note (short form) - Note Progress Note: pt seen/ examined in er chart reviewed had pain before feels better started on fluids -- was hypoglycemic Vital Signs Temp 98.0 F 03/18/18 11:35 Pulse 92 H 03/18/18 11:35 Resp 16 03/18/18 11:35 BP 150/71 03/18/18 11:35 Pulse Ox 97 03/18/18 11:35 Intake & Output 03/17/18 03/18/18 03/18/18 23:59 11:59 23:59 Weight 135 lb Other: Height 5 ft 5 in Body Mass Index (BMI) 22.4 Weight Measurement Method Estimated by Staff Active Medications Chlorhexidine Gluconate (Hibiclens For Decolonization -) 1 applic TP HS ALEX Lactated Ringer's (Lactated Ringers Solution) 1,000 ml in 1,000 mls @ 75 mls/ hr IV ASDIR ALEX Last Admin: 03/18/18 06:39 Dose: Not Given Dextrose/Sodium Chloride (D5-1/2ns -) 1,000 mls @ 100 mls/hr IV ASDIR ALEX Last Admin: 03/18/18 11:26 Dose: 100 mls/hr Morphine Sulfate (Morphine Sulfate) 1 mg IVPUSH Q6H PRN PRN Reason: PAIN LEVEL 6-10 Mupirocin (Bactroban Ointment (For Decolonization) -) 1 applic NS BID ALEX Stop: 03/23/18 09:59 CBC, BMP 03/18/18 11:23 CMP Sodium 135 mmol/L (136-145) L 03/18/18 06:52 Potassium 5.3 mmol/L (3.5-5.1) H 03/18/18 06:52 Chloride 99 mmol/L (98-107) 03/18/18 06:52 Carbon Dioxide 28 mmol/L (21-32) 03/18/18 06:52 Anion Gap 8 MMOL/L (8-16) 03/18/18 06:52 BUN 45 mg/dL (7-18) H 03/18/18 06:52 Creatinine 2.4 mg/dL (0.55-1.3) H 03/18/18 06:52 Creat Clearance w eGFR 26.11 (>60) 03/18/18 06:52 POC Glucometer 75 UNITS (80-120) 03/18/18 11:12 Random Glucose 265 mg/dL (74-106) H 03/18/18 06:52 Lactic Acid 1.9 mmol/L (0.4-2.0) 03/18/18 06:52 Calcium 7.9 mg/dL (8.5-10.1) L 03/18/18 06:52 Total Bilirubin 0.5 mg/dL (0.2-1) 03/18/18 06:52 AST 20 U/L (15-37) 03/18/18 06:52 ALT 16 U/L (13-61) 03/18/18 06:52 Alkaline Phosphatase 119 U/L (45-117) H 03/18/18 06:52 Creatine Kinase 53 U/L (26-308) 03/18/18 06:52 Troponin I 0.02 ng/ml (0.00-0.05) 03/18/18 06:52 Total Protein 5.6 g/dl (6.4-8.2) L 03/18/18 06:52 Albumin 2.4 g/dl (3.4-5.0) L 03/18/18 06:52 INR, PTT INR 5.12 (0.83-1.09) H* 03/18/18 06:52 Physical Examination Constitutional: Yes: No Distress, comfortable Cardiovascular: Yes: Regular Rate and Rhythm Respiratory: Yes: Diminished at bases Gastrointestinal: Yes: soft/ hernia + left side. Edema: No Neuro- a0x3 a/p stable continue present care fluids may start on liquid diet surgery to follow oob - chair manage on floor will follow monitor inr no sign of bleeding Problem List - Problems (1) Incarcerated hernia Code(s): K46.0 - UNSP ABDOMINAL HERNIA WITH OBSTRUCTION, WITHOUT GANGRENE (2) Abnormal INR Code(s): R79.1 - ABNORMAL COAGULATION PROFILE (3) Afib Code(s): I48.91 - UNSPECIFIED ATRIAL FIBRILLATION Qualifiers: Atrial fibrillation type: persistent Qualified Code(s): I48.1 - Persistent atrial fibrillation (4) Anticoagulated on Coumadin Code(s): Z79.01 - ASSISTED (CURRENT) USE OF ANTICOAGULANTS (5) Ascites Code(s): R18.8 - OTHER ASCITES Qualifiers: Ascites type: other type Qualified Code(s): R18.8 - Other ascites (6) Breast cancer in male Code(s): C50.929 - MALIGNANT NEOPLASM OF UNSP SITE OF UNSPECIFIED MALE BREAST (7) Chronic kidney disease (CKD) Code(s): N18.9 - CHRONIC KIDNEY DISEASE, UNSPECIFIED Qualifiers: Chronic kidney disease stage: unspecified stage Qualified Code(s): N18.9 - Chronic kidney disease, unspecified (8) Coronary artery disease Code(s): I25.10 - ATHSCL HEART DISEASE OF [place] CORONARY ARTERY W/O ANG PCTRS Qualifiers: Coronary Disease-Associated Artery/Lesion type: [place] artery [place] vs. transplanted heart: [place] heart Associated angina: without angina Qualified Code(s): I25.10 - Atherosclerotic heart disease of [place] coronary artery without angina pectoris (9) Pacemaker Code(s): Z95.0 - PRESENCE OF CARDIAC PACEMAKER (10) Pleural effusion Code(s): J90 - PLEURAL EFFUSION, NOT ELSEWHERE CLASSIFIED
[2018-03-18 12:41] LABS: ALBUMIN 2.4 g/dl (3.4-5.0); ALK PHOS 123 U/L (45-117); ANION GAP 10 MMOL/L (8-16); BILIRUBIN,TOTAL 0.6 mg/dL (0.2-1); BLOOD UREA NITROGEN 44 mg/dL (7-18); CALCIUM 8.3 mg/dL (8.5-10.1); CHLORIDE 100 mmol/L (98-107); CO2 26 mmol/L (21-32); CREATININE 2.4 mg/dL (0.55-1.3); GLUCOSE,RANDOM 62 mg/dL (74-106); POTASSIUM 4.8 mmol/L (3.5-5.1); SGOT/AST 20 U/L (15-37); SGPT/ALT 16 U/L (13-61); SODIUM 136 mmol/L (136-145); TOT PROT 5.8 g/dl (6.4-8.2)
--- NOTE | 2018-03-18 13:09 | PN ---
Progress Note (short form) - Note Progress Note: Remains in the ER. Resting in NAD. No CP or SOB. Abdominal pain is better. Intake & Output 03/15/18 03/16/18 03/17/18 03/18/18 23:59 23:59 23:59 23:59 Weight 135 lb Last Vital Signs Temp Pulse Resp BP Pulse Ox 98.0 F 92 H 16 150/71 97 03/18/18 11:35 03/18/18 11:35 03/18/18 11:35 03/18/18 11:35 03/18/18 11:35 Active Medications Chlorhexidine Gluconate (Hibiclens For Decolonization -) 1 applic TP HS ALEX Lactated Ringer's (Lactated Ringers Solution) 1,000 ml in 1,000 mls @ 75 mls/ hr IV [facility] Last Admin: 03/18/18 06:39 Dose: Not Given Dextrose/Sodium Chloride (D5-1/2ns -) 1,000 mls @ 100 mls/hr IV [facility] Last Admin: 03/18/18 11:26 Dose: 100 mls/hr Morphine Sulfate (Morphine Sulfate) 1 mg IVPUSH Q6H PRN PRN Reason: PAIN LEVEL 6-10 Mupirocin (Bactroban Ointment (For Decolonization) -) 1 applic NS BID [facility] Stop: 03/23/18 09:59 Constitutional: Yes: No Distress,Thin Neck: Yes: Supple Respiratory: Yes: Diminished at the bases Right > Left Gastrointestinal: Yes: Soft, Hypoactive Bowel Sounds, (+) Right-sided hernia Cardiovascular: Yes: Pulse Irregular JVD: No Carotid Bruit: No Heart Sounds: Yes: S1, S2 Murmur: Yes: Systolic Murmur, Grade 2 Edema: No - Other Data Labs, Other Data: Laboratory Results - last 24 hr 03/17/18 03/17/18 03/17/18 20:25 20:25 20:25 WBC 7.4 RBC 3.45 L Hgb 11.3 L Hct 33.4 L MCV 96.9 H MCH 32.8 MCHC 33.8 RDW 15.4 Plt Count 200 D MPV 9.5 Absolute Neuts (auto) 5.4 Neutrophils % 72.9 Neutrophils % (Manual) Band Neutrophils % Lymphocytes % 10.7 D Lymphocytes % (Manual) Monocytes % 15.7 H Monocytes % (Manual) Eosinophils % 0.3 Eosinophils % (Manual) Basophils % 0.4 Basophils % (Manual) Myelocytes % (Man) Promyelocytes % (Man) Blast Cells % (Manual) Nucleated RBC % 0 Metamyelocytes Hypochromia Platelet Estimate Polychromasia Poikilocytosis Anisocytosis Microcytosis Macrocytosis Ovalocytes PT with INR 52.40 H INR 4.37 H* PTT (Actin FS) 43.9 H Sodium 137 Potassium 5.1 Chloride 99 Carbon Dioxide 28 Anion Gap 10 BUN 43 H Creatinine 2.2 H Creat Clearance w eGFR 28.87 POC Glucometer Random Glucose 60 L Lactic Acid Calcium 8.3 L Total Bilirubin 0.6 AST 23 ALT 17 Alkaline Phosphatase 134 H Creatine Kinase 59 Troponin I 0.02 Total Protein 6.1 L Albumin 2.6 L Influenza A (Rapid) Influenza B (Rapid) Blood Type Antibody Screen 03/17/18 03/17/18 03/17/18 20:30 20:30 21:15 WBC RBC Hgb Hct MCV MCH MCHC RDW Plt Count MPV Absolute Neuts (auto) Neutrophils % Neutrophils % (Manual) Band Neutrophils % Lymphocytes % Lymphocytes % (Manual) Monocytes % Monocytes % (Manual) Eosinophils % Eosinophils % (Manual) Basophils % Basophils % (Manual) Myelocytes % (Man) Promyelocytes % (Man) Blast Cells % (Manual) Nucleated RBC % Metamyelocytes Hypochromia Platelet Estimate Polychromasia Poikilocytosis Anisocytosis Microcytosis Macrocytosis Ovalocytes PT with INR INR PTT (Actin FS) Sodium Potassium Chloride Carbon Dioxide Anion Gap BUN Creatinine Creat Clearance w eGFR POC Glucometer Random Glucose Lactic Acid 3.2 H* Calcium Total Bilirubin AST ALT Alkaline Phosphatase Creatine Kinase Troponin I Total Protein Albumin Influenza A (Rapid) Negative Influenza B (Rapid) Negative Blood Type B POSITIVE Antibody Screen Negative 03/18/18 03/18/18 03/18/18 06:31 06:52 06:52 WBC 5.7 RBC 3.17 L Hgb 10.3 L Hct 30.6 L MCV 96.4 H MCH 32.5 MCHC 33.7 RDW 15.3 Plt Count 182 MPV 9.0 Absolute Neuts (auto) 4.1 Neutrophils % 72.2 Neutrophils % (Manual) 76.3 Band Neutrophils % 1.0 Lymphocytes % 15.2 D Lymphocytes % (Manual) 11.4 Monocytes % 12.3 H Monocytes % (Manual) 8 Eosinophils % 0.2 Eosinophils % (Manual) 0.0 Basophils % 0.1 Basophils % (Manual) 0.0 Myelocytes % (Man) 1 Promyelocytes % (Man) 0 Blast Cells % (Manual) 0 Nucleated RBC % 1 H Metamyelocytes 1 Hypochromia 0 Platelet Estimate Normal Polychromasia 1+ Poikilocytosis 1+ Anisocytosis 1+ Microcytosis 0 Macrocytosis 1+ Ovalocytes 1+ PT with INR INR PTT (Actin FS) Sodium 135 L Potassium 5.3 H Chloride 99 Carbon Dioxide 28 Anion Gap 8 BUN 45 H Creatinine 2.4 H Creat Clearance w eGFR 26.11 POC Glucometer 21 Random Glucose 265 H Lactic Acid Calcium 7.9 L Total Bilirubin 0.5 AST 20 ALT 16 Alkaline Phosphatase 119 H Creatine Kinase 53 Troponin I 0.02 Total Protein 5.6 L Albumin 2.4 L Influenza A (Rapid) Influenza B (Rapid) Blood Type Antibody Screen 03/18/18 03/18/18 03/18/18 06:52 06:52 07:27 WBC RBC Hgb Hct MCV MCH MCHC RDW Plt Count MPV Absolute Neuts (auto) Neutrophils % Neutrophils % (Manual) Band Neutrophils % Lymphocytes % Lymphocytes % (Manual) Monocytes % Monocytes % (Manual) Eosinophils % Eosinophils % (Manual) Basophils % Basophils % (Manual) Myelocytes % (Man) Promyelocytes % (Man) Blast Cells % (Manual) Nucleated RBC % Metamyelocytes Hypochromia Platelet Estimate Polychromasia Poikilocytosis Anisocytosis Microcytosis Macrocytosis Ovalocytes PT with INR 61.40 H INR 5.12 H* PTT (Actin FS) Sodium Potassium Chloride Carbon Dioxide Anion Gap BUN Creatinine Creat Clearance w eGFR POC Glucometer 161 Random Glucose Lactic Acid 1.9 Calcium Total Bilirubin AST ALT Alkaline Phosphatase Creatine Kinase Troponin I Total Protein Albumin Influenza A (Rapid) Influenza B (Rapid) Blood Type Antibody Screen 03/18/18 03/18/18 03/18/18 11:12 11:23 11:23 WBC 6.3 RBC 3.31 L Hgb 10.9 L Hct 32.2 L MCV 97.2 H MCH 33.1 MCHC 34.0 RDW 15.8 Plt Count 197 MPV 9.9 Absolute Neuts (auto) 4.3 Neutrophils % 67.9 Neutrophils % (Manual) Band Neutrophils % Lymphocytes % 15.5 Lymphocytes % (Manual) Monocytes % 16.0 H Monocytes % (Manual) Eosinophils % 0.3 Eosinophils % (Manual) Basophils % 0.3 Basophils % (Manual) Myelocytes % (Man) Promyelocytes % (Man) Blast Cells % (Manual) Nucleated RBC % 1 H Metamyelocytes Hypochromia Platelet Estimate Polychromasia Poikilocytosis Anisocytosis Microcytosis Macrocytosis Ovalocytes PT with INR INR PTT (Actin FS) Sodium Potassium Chloride Carbon Dioxide Anion Gap BUN Creatinine Creat Clearance w eGFR POC Glucometer 75 Random Glucose Lactic Acid Calcium Total Bilirubin AST ALT Alkaline Phosphatase Creatine Kinase 59 Troponin I 0.02 Total Protein Albumin Influenza A (Rapid) Influenza B (Rapid) Blood Type Antibody Screen 03/18/18 11:23 WBC RBC Hgb Hct MCV MCH MCHC RDW Plt Count MPV Absolute Neuts (auto) Neutrophils % Neutrophils % (Manual) Band Neutrophils % Lymphocytes % Lymphocytes % (Manual) Monocytes % Monocytes % (Manual) Eosinophils % Eosinophils % (Manual) Basophils % Basophils % (Manual) Myelocytes % (Man) Promyelocytes % (Man) Blast Cells % (Manual) Nucleated RBC % Metamyelocytes Hypochromia Platelet Estimate Polychromasia Poikilocytosis Anisocytosis Microcytosis Macrocytosis Ovalocytes PT with INR INR PTT (Actin FS) Sodium 136 Potassium 4.8 Chloride 100 Carbon Dioxide 26 Anion Gap 10 BUN 44 H Creatinine 2.4 H Creat Clearance w eGFR 26.11 POC Glucometer Random Glucose 62 L Lactic Acid Calcium 8.3 L Total Bilirubin 0.6 AST 20 ALT 16 Alkaline Phosphatase 123 H Creatine Kinase Troponin I Total Protein 5.8 L Albumin 2.4 L Influenza A (Rapid) Influenza B (Rapid) Blood Type Antibody Screen Problem List - Problems (1) Incarcerated hernia Code(s): K46.0 - UNSP ABDOMINAL HERNIA WITH OBSTRUCTION, WITHOUT GANGRENE (2) Acute on chronic renal failure Code(s): N17.9 - ACUTE KIDNEY FAILURE, UNSPECIFIED; N18.9 - CHRONIC KIDNEY DISEASE, UNSPECIFIED Qualifiers: Chronic kidney disease stage: stage 3 (moderate) (3) Afib Code(s): I48.91 - UNSPECIFIED ATRIAL FIBRILLATION Qualifiers: Atrial fibrillation type: persistent Qualified Code(s): I48.1 - Persistent atrial fibrillation (4) Anemia Code(s): D64.9 - ANEMIA, UNSPECIFIED Qualifiers: Anemia type: unspecified type Qualified Code(s): D64.9 - Anemia, unspecified (5) Anticoagulated on Coumadin Code(s): Z79.01 - MCC (CURRENT) USE OF ANTICOAGULANTS (6) Coronary artery disease Code(s): I25.10 - ATHSCL HEART DISEASE OF [place] CORONARY ARTERY W/O ANG PCTRS Qualifiers: Coronary Disease-Associated Artery/Lesion type: [place] artery [place] vs. transplanted heart: [place] heart Associated angina: without angina Qualified Code(s): I25.10 - Atherosclerotic heart disease of [place] coronary artery without angina pectoris (7) HTN (hypertension) Code(s): I10 - ESSENTIAL (PRIMARY) HYPERTENSION Qualifiers: Hypertension type: essential hypertension Qualified Code(s): I10 - Essential (primary) hypertension (8) Hyperlipidemia Code(s): E78.5 - HYPERLIPIDEMIA, UNSPECIFIED Qualifiers: Hyperlipidemia type: pure hypercholesterolemia Qualified Code(s): E78.00 - Pure hypercholesterolemia, unspecified; E78.0 - Pure hypercholesterolemia (9) Pacemaker Code(s): Z95.0 - PRESENCE OF CARDIAC PACEMAKER (10) Pleural effusion, right Code(s): J90 - PLEURAL EFFUSION, NOT ELSEWHERE CLASSIFIED (11) Pulmonary hypertension Code(s): I27.2 - OTHER SECONDARY PULMONARY HYPERTENSION * DO NOT USE * (12) Sick sinus syndrome Code(s): I49.5 - SICK SINUS SYNDROME (13) Status post coronary artery stent placement Code(s): Z95.5 - PRESENCE OF CORONARY ANGIOPLASTY IMPLANT AND GRAFT (14) Supratherapeutic INR Code(s): R79.1 - ABNORMAL COAGULATION PROFILE (15) Systolic and diastolic CHF, acute on chronic Code(s): I50.43 - ACUTE ON CHRONIC COMBINED SYSTOLIC AND DIASTOLIC HRT FAIL (16) Type 2 diabetes mellitus Code(s): E11.9 - TYPE 2 DIABETES MELLITUS WITHOUT COMPLICATIONS Qualifiers: Diabetes mellitus complication status: with kidney complications Diabetes mellitus complication detail: with chronic kidney disease Chronic kidney disease stage: stage 3 (moderate) Assessment/Plan Bowel rest IVF Surgical evaluation has been called Hold AC if the patient needs OR May need to consider repeat Right thoracentesis if enlarges or becomes symptomatic Please call for any change in condition. Can be monitored on the Cardiac Telemetry unit for now Will follow Dr North
--- NOTE | 2018-03-18 13:19 | EKG ---
Test Reason : Blood Pressure : / mmHG Vent. Rate : 105 BPM Atrial Rate : 110 BPM P-R Int : 000 ms QRS Dur : 104 ms QT Int : 308 ms P-R-T Axes : 000 -30 163 degrees QTc Int : 407 ms ATRIAL FIBRILLATION WITH RAPID VENTRICULAR RESPONSE WITH PREMATURE VENTRICULAR OR ABERRANTLY CONDUCTED COMPLEXES LEFT AXIS DEVIATION ABNORMAL ECG WHEN COMPARED WITH ECG OF 08-FEB-2018 01:53, ST NO LONGER DEPRESSED IN ANTERIOR LEADS T WAVE INVERSION LESS EVIDENT IN ANTERIOR LEADS QT HAS SHORTENED Confirmed by RALPH ORTEGA, SUSANNE ([id number]) on 03/18/2018 1:18:52 PM Referred By: Confirmed By:SUSANNE ROSAS MD
[2018-03-18 13:48] LABS: ANISOCYTOSIS 1+; MACROCYTOSIS 1+; OVALOCYTE 1+; PLATELET ESTIMATE NORMAL
[2018-03-18 14:11] LABS: URINE APPEARANCE CLEAR; URINE BILIRUBIN NEGATIVE (<2.0 mg/dL); URINE COLOR YELLOW; URINE GLUCOSE (UA) NEGATIVE (NEGATIVE); URINE KETONE NEGATIVE (NEGATIVE); URINE LEUK ESTERASE 2+ (NEGATIVE); URINE NITRITE NEGATIVE (NEGATIVE); URINE PROTEIN 2+ (NEGATIVE); URINE UROBILINOGEN NEGATIVE mg/dL (0.2-1.0)
[2018-03-18] MEDS ORDERED: guaiFENesin 200 MG/10 ML 10 ML UNIT-DOSE CUPS ONE (18:44)
[2018-03-18] MEDS: guaiFENesin 200 MG/10 ML 10 ML UNIT-DOSE CUPS PO PRN (18:50)
--- NOTE | 2018-03-18 20:25 | CONSULT ---
- Consultation REQUESTING PROVIDER: Mónica ROSA CONSULT REQUEST: We have been asked to surgically evaluate this patient for a ? incarcerated abdominal wall hernia ? PCP:Adán Martinez HISTORY OF PRESENT ILLNESS: 82 y/o male presented w/ a known abdominal wall hernia for at least 10 years; he presented to the ER w/cough and SOB; he is on anticoagulation and has a known right pleural effusion PMHx: HTN/AFib/HLD/BPH/CAD/CKD PSHx: ? Home Medications Medication Instructions Recorded Colchicine [Colcrys] 0.6 mg PO DAILY 03/27/15 Pantoprazole Sodium [Protonix] 40 mg PO DAILY 03/27/15 Sertraline HCl [Zoloft -] 50 mg PO DAILY 03/27/15 Simvastatin [Zocor -] 20 mg PO HS 03/27/15 Amlodipine Besylate [Norvasc -] 5 mg PO DAILY #30 tablet 09/27/15 Carvedilol [Coreg -] 25 mg PO BID #60 tablet 09/27/15 Polyethylene Glycol 3350 [Miralax 17 gm PO DAILY PRN #1 bottle 09/27/15 119 gm Btl -] Warfarin Na [Coumadin -] 5 mg PO DAILY@1800 #30 tablet 09/27/15 Furosemide [Lasix] 40 mg PO DAILY 30 Days #30 tablet 02/14/18 Tamsulosin HCl [Flomax -] 0.4 mg PO DAILY@0830 cap.er.24h 02/14/18 Allergies Allergy/AdvReac Type Severity Reaction Status Date / Time levofloxacin [From Levaquin] Allergy Rash Verified 03/17/18 19:27 PHYSICAL EXAM: GENERAL: Awake, alert, and fully oriented, in no acute distress. HEAD: Normal with no signs of trauma. EYES: PERRL, sclera anicteric, conjunctiva clear. NECK: Normal ROM, supple without lymphadenopathy, JVD, or masses. ABDOMEN: Soft, nontender, not distended, normoactive bowel sounds, no guarding, no rebound, no masses. No organomegaly. partially reducinle hernia at the umbilicus. MUSCULOSKELETAL: Normal ROM at all joints. No bony deformities or tenderness. No CVA tenderness. UPPER EXTREMITIES: 2+ pulses, warm, well-perfused. No cyanosis. Cap refill <2 seconds. No peripheral edema. LOWER EXTREMITIES: 2+ pulses, warm, well-perfused. No calf tenderness. No peripheral edema. NEUROLOGICAL: Normal speech, gait not observed. PSYCH: Cooperative. Good eye contact. Appropriate mood and affect. SKIN: Warm, dry, normal turgor, no rashes or lesions noted. Vital Signs Temperature 98.1 F 03/18/18 18:57 Pulse Rate 94 H 03/18/18 18:57 Respiratory Rate 16 03/18/18 18:57 Blood Pressure 107/66 03/18/18 18:57 O2 Sat by Pulse Oximetry (%) 96 03/18/18 18:57 Lab Results WBC 6.3 K/mm3 (4.0-10.0) 03/18/18 11:23 RBC 3.31 M/mm3 (4.00-5.60) L 03/18/18 11:23 Hgb 10.9 GM/dL (11.7-16.9) L 03/18/18 11:23 Hct 32.2 % (35.4-49) L 03/18/18 11:23 MCV 97.2 fl (80-96) H 03/18/18 11:23 MCHC 34.0 g/dl (32.0-35.9) 03/18/18 11:23 RDW 15.8 % (11.9-15.9) 03/18/18 11:23 Plt Count 197 K/MM3 (134-434) 03/18/18 11:23 Sodium 136 mmol/L (136-145) 03/18/18 11:23 Potassium 4.8 mmol/L (3.5-5.1) 03/18/18 11:23 Chloride 100 mmol/L (98-107) 03/18/18 11:23 Carbon Dioxide 26 mmol/L (21-32) 03/18/18 11:23 Anion Gap 10 MMOL/L (8-16) 03/18/18 11:23 BUN 44 mg/dL (7-18) H 03/18/18 11:23 Creatinine 2.4 mg/dL (0.55-1.3) H 03/18/18 11:23 Random Glucose 62 mg/dL (74-106) L 03/18/18 11:23 Calcium 8.3 mg/dL (8.5-10.1) L 03/18/18 11:23 Blood Type B POSITIVE 03/17/18 20:30 Antibody Screen Negative 03/17/18 20:30 INR 5.12 (0.83-1.09) H* 03/18/18 06:52 CT a/p reviewed IMP:Chronically incarcerated but not strangulated abdominal wall hernia w/no evidence of an acute surgical abdomen PLAN: NPO/IVF/remainder of issues to be managed by the medical service. Regan Hill MD FACS
[2018-03-18] MEDS ORDERED: CHLORHEXIDINE GLUCONATE 4% CLEANSER FOR DECOLONIZATION TP SCH (22:00)
--- NOTE | 2018-03-19 06:54 | PN ---
Progress Note (short form) - Note Progress Note: Chief Complaint: Events noted, notes reviewed, Denies any chest discomfort, reports persistent dyspnea but improved History of Present Illness: Seen and examined. Events noted, notes reviewed, Denies any chest discomfort, reports persistent dyspnea but improved Echocardiography dated 02/09/2018 revealed normal LV size with severely decreased LV systolic function, severe TR, severe pulmonary HTN, pacer in RV Current Medications: Current Medications Guaifenesin (Robitussin -) 10 ml PO Q6H PRN PRN Reason: COUGH Last Admin: 03/18/18 18:50 Dose: 10 ml Potassium Chloride/Dextrose/Sod Cl (D5-1/2ns+20 Meq Kcl -) 20 meq in 1,000 mls @ 70 mls/hr IV ASDIR ALEX Morphine Sulfate (Morphine Sulfate) 1 mg IVPUSH Q6H PRN PRN Reason: PAIN LEVEL 6-10 Last Admin: 03/19/18 09:41 Dose: 1 mg - Objective Vital Signs: Last Vital Signs Temp Pulse Resp BP Pulse Ox 97.6 F 126 H 18 125/70 96 03/19/18 08:45 03/19/18 08:45 03/19/18 08:45 03/19/18 08:45 03/19/18 01:11 Intake & Output 03/16/18 03/17/18 03/18/18 03/19/18 23:59 23:59 23:59 23:59 Intake Total 400 Balance 400 Weight 135 lb Neck: Supple Negative JVD No bruit Respiratory: Diminished breath sounds at the bases Cardiovascular: S1, S2 Irregularly Irregular Gastrointestinal: Soft Benign Normal Bowel Sounds Ext: Negative Edema Labs: CBC, BMP 03/19/18 06:30 03/19/18 06:30 Troponin, BNP 03/18/18 11:23 Troponin I 0.02 Hepatic Panel Total Bilirubin 0.7 mg/dL (0.2-1) 03/19/18 06:30 AST 93 U/L (15-37) H 03/19/18 06:30 ALT 64 U/L (13-61) H 03/19/18 06:30 Alkaline Phosphatase 124 U/L (45-117) H 03/19/18 06:30 Albumin 2.5 g/dl (3.4-5.0) L 03/19/18 06:30 INR, PTT INR 7.24 (0.83-1.09) H* 03/19/18 06:30 Assessment/Plan ASSESSMENT: 1. Incarcerated spigelian hernia without strangulation 2. Right pleural effusion with underlying history of breast carcinoma post mastectomy post chemotherapy, prior history of thoracentesis 3. 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 CAD post PCI/stent angina pectoris 5. Persistent/chronic atrial fibrillation on A/C, [id number] score of 6, supra- therapeutic INR 6. AV block post PPM 7. Mitral valve and tricuspid valve regurgitation 8. HTN/HCVD 9. DM 10. Hypercholesterolemia 11. Acute on CKD with hyperkalemia, resolved Hyperkalemia PLAN: 1. Cautious hydration 2. Continue to withhold anticoagulation therapy/Coumadin in view of the above- noted supra-therapeutic INR 3. Resume Carvedilol once PO intake, hemodynamics permitting 4. Resume Amlodipine once PO intake, hemodynamics permitting 5. Resume Diovan preferably Entresto therapy and diuretics therapy once renal function stabilizes/at baseline/once PO intake, hemodynamics permitting; with close monitoring of renal function and potassium level 6. As outlined in the initial consult, consider repeat right thoracentesis once INR is acceptable/appropriate Adriel Phoenix M.D.
[2018-03-19 07:47] LABS: BASO % 0.2 % (0-2.0); EOS % 0.3 % (0-4.5); HEMATOCRIT 33.6 % (35.4-49); HEMOGLOBIN 10.9 GM/dL (11.7-16.9); LYMPH % 21.6 % (8-40); MCHC 32.5 g/dl (32.0-35.9); MEAN CELL VOLUME 98.4 fl (80-96); MEAN PLT VOLUME 9.5 fl (7.5-11.1); MONO % 15.4 % (3.8-10.2); NEUT % 62.5 % (42.8-82.8); PLATELET COUNT 230 K/MM3 (134-434); RBC 3.41 M/mm3 (4.00-5.60); RDW 15.9 % (11.9-15.9); WHITE BLOOD COUNT 9.7 K/mm3 (4.0-10.0)
[2018-03-19 07:58] LABS: PROTHROMBIN TIME (PATIENT) 87.1 SEC (9.7-13.0)
[2018-03-19 08:03] LABS: ALBUMIN 2.5 g/dl (3.4-5.0); ALK PHOS 124 U/L (45-117); ANION GAP 10 MMOL/L (8-16); BILIRUBIN,TOTAL 0.7 mg/dL (0.2-1); BLOOD UREA NITROGEN 45 mg/dL (7-18); CALCIUM 7.7 mg/dL (8.5-10.1); CHLORIDE 98 mmol/L (98-107); CO2 25 mmol/L (21-32); CREATININE 2.6 mg/dL (0.55-1.3); POTASSIUM 4.9 mmol/L (3.5-5.1); SGOT/AST 93 U/L (15-37); SGPT/ALT 64 U/L (13-61); SODIUM 134 mmol/L (136-145)
[2018-03-19 08:12] LABS: INR 7.24 (0.83-1.09)
[2018-03-19 08:13] LABS: GLUCOSE,RANDOM 39 mg/dL (74-106)
[2018-03-19] MEDS ORDERED: DEXTROSE 50%-WATER 25 GM/50 ML DISP.SYRIN ONE (08:27)
[2018-03-19] MEDS ORDERED: LACTATED RINGERS SOLUTION 1,000 ML/1,000 ML INFUS.BAG IV SCH (08:37)
[2018-03-19] MEDS ORDERED: DEXTROSE 50%-WATER - 25 GM/50 ML VIAL IVPUSH STA (08:40)
[2018-03-19] MEDS ORDERED: MUPIROCIN 2% TOPICAL OINTMENT FOR DECOLONIZATION NS SCH (10:00)
[2018-03-19 10:28] LABS: ANISOCYTOSIS 1+; MACROCYTOSIS 1+; OVALOCYTE 1+; PLATELET ESTIMATE NORMAL
[2018-03-19] MEDS ORDERED: D5-1/2NS+20 MEQ KCL - 20 MEQ/1,000 ML INFUS.BAG IV SCH (11:00)
--- NOTE | 2018-03-19 12:30 | PN ---
Progress Note (short form) - Note Progress Note: coughing+ not SOB no abd pain passed flatus+ Vital Signs - 24 hr 03/18/18 03/19/18 03/19/18 18:57 00:05 01:11 Temperature 98.1 F 97.8 F 97.9 F Pulse Rate 103 H Pulse Rate [ 94 H 98 H Left Radial] Respiratory 16 18 19 Rate Blood Pressure 149/86 Blood Pressure 107/66 102/73 [Left Arm] O2 Sat by Pulse 96 98 96 Oximetry (%) 03/19/18 08:45 Temperature 97.6 F Pulse Rate 126 H Pulse Rate [ Left Radial] Respiratory 18 Rate Blood Pressure 125/70 Blood Pressure [Left Arm] O2 Sat by Pulse Oximetry (%) Current Medications Generic Name Dose Route Start Last Admin Trade Name Freq PRN Reason Stop Dose Admin Guaifenesin 10 ml 03/18/18 18:32 03/18/18 18:50 Robitussin - PO 10 ml Q6H PRN Administration COUGH Potassium Chloride/Dextrose/Sod Cl 20 meq in 1,000 mls @ 60 mls/hr 03/19/18 12 :28 D5-1/2ns+20 Meq Kcl - IV ASDIR ALEX Morphine Sulfate 1 mg 03/18/18 11:18 03/19/18 09:41 Morphine Sulfate IVPUSH 1 mg Q6H PRN Administration PAIN LEVEL 6-10 Laboratory Results - last 24 hr 03/17/18 03/18/18 03/18/18 13:45 11:23 11:23 WBC RBC Hgb Hct MCV MCH MCHC RDW Plt Count MPV Absolute Neuts (auto) Neutrophils % Neutrophils % (Manual) 70.0 Band Neutrophils % 0.0 Lymphocytes % Lymphocytes % (Manual) 13.0 Monocytes % Monocytes % (Manual) 16 H D Eosinophils % Eosinophils % (Manual) 0.0 Basophils % Basophils % (Manual) 0.0 Myelocytes % (Man) 0 D Promyelocytes % (Man) 0 Blast Cells % (Manual) 0 Nucleated RBC % Metamyelocytes 0 D Hypochromia 0 Platelet Estimate Normal Polychromasia 1+ Poikilocytosis 1+ Anisocytosis 1+ Microcytosis 0 Macrocytosis 1+ Ovalocytes 1+ Schistocytes PT with INR INR Sodium Potassium Chloride Carbon Dioxide Anion Gap BUN Creatinine Creat Clearance w eGFR POC Glucometer Random Glucose Calcium Total Bilirubin AST ALT Alkaline Phosphatase Creatine Kinase 59 Troponin I 0.02 Total Protein Albumin Urine Color Yellow Urine Appearance Clear Urine pH 5.0 Ur Specific [place] 1.013 Urine Protein 2+ H Urine Glucose (UA) Negative Urine Ketones Negative Urine Blood 2+ H Urine Nitrite Negative Urine Bilirubin Negative Urine Urobilinogen Negative Ur Leukocyte Esterase 2+ H Urine WBC (Auto) 38 Urine RBC (Auto) 2 03/18/18 03/18/18 03/18/18 11:23 18:47 23:41 WBC RBC Hgb Hct MCV MCH MCHC RDW Plt Count MPV Absolute Neuts (auto) Neutrophils % Neutrophils % (Manual) Band Neutrophils % Lymphocytes % Lymphocytes % (Manual) Monocytes % Monocytes % (Manual) Eosinophils % Eosinophils % (Manual) Basophils % Basophils % (Manual) Myelocytes % (Man) Promyelocytes % (Man) Blast Cells % (Manual) Nucleated RBC % Metamyelocytes Hypochromia Platelet Estimate Polychromasia Poikilocytosis Anisocytosis Microcytosis Macrocytosis Ovalocytes Schistocytes PT with INR INR Sodium 136 Potassium 4.8 Chloride 100 Carbon Dioxide 26 Anion Gap 10 BUN 44 H Creatinine 2.4 H Creat Clearance w eGFR 26.11 POC Glucometer 87 123 Random Glucose 62 L Calcium 8.3 L Total Bilirubin 0.6 AST 20 ALT 16 Alkaline Phosphatase 123 H Creatine Kinase Troponin I Total Protein 5.8 L Albumin 2.4 L Urine Color Urine Appearance Urine pH Ur Specific [place] Urine Protein Urine Glucose (UA) Urine Ketones Urine Blood Urine Nitrite Urine Bilirubin Urine Urobilinogen Ur Leukocyte Esterase Urine WBC (Auto) Urine RBC (Auto) 03/19/18 03/19/18 03/19/18 06:30 06:30 06:30 WBC 9.7 RBC 3.41 L Hgb 10.9 L Hct 33.6 L MCV 98.4 H MCH 32.0 MCHC 32.5 RDW 15.9 Plt Count 230 MPV 9.5 Absolute Neuts (auto) 6.0 Neutrophils % 62.5 Neutrophils % (Manual) 61.0 Band Neutrophils % 2.0 Lymphocytes % 21.6 D Lymphocytes % (Manual) 20.0 D Monocytes % 15.4 H Monocytes % (Manual) 12 H Eosinophils % 0.3 Eosinophils % (Manual) 2.0 D Basophils % 0.2 Basophils % (Manual) 0.0 Myelocytes % (Man) 2 D Promyelocytes % (Man) 0 Blast Cells % (Manual) 0 Nucleated RBC % 2 H Metamyelocytes 0 Hypochromia 0 Platelet Estimate Normal Polychromasia 1+ Poikilocytosis 1+ Anisocytosis 1+ Microcytosis 0 Macrocytosis 1+ Ovalocytes 1+ Schistocytes 1+ PT with INR 87.10 H INR 7.24 H* Sodium 134 L Potassium 4.9 Chloride 98 Carbon Dioxide 25 Anion Gap 10 BUN 45 H Creatinine 2.6 H Creat Clearance w eGFR 23.81 POC Glucometer Random Glucose 39 L* Calcium 7.7 L Total Bilirubin 0.7 AST 93 H ALT 64 H Alkaline Phosphatase 124 H Creatine Kinase Troponin I Total Protein 6.0 L Albumin 2.5 L Urine Color Urine Appearance Urine pH Ur Specific [place] Urine Protein Urine Glucose (UA) Urine Ketones Urine Blood Urine Nitrite Urine Bilirubin Urine Urobilinogen Ur Leukocyte Esterase Urine WBC (Auto) Urine RBC (Auto) 03/19/18 03/19/18 08:10 08:55 WBC RBC Hgb Hct MCV MCH MCHC RDW Plt Count MPV Absolute Neuts (auto) Neutrophils % Neutrophils % (Manual) Band Neutrophils % Lymphocytes % Lymphocytes % (Manual) Monocytes % Monocytes % (Manual) Eosinophils % Eosinophils % (Manual) Basophils % Basophils % (Manual) Myelocytes % (Man) Promyelocytes % (Man) Blast Cells % (Manual) Nucleated RBC % Metamyelocytes Hypochromia Platelet Estimate Polychromasia Poikilocytosis Anisocytosis Microcytosis Macrocytosis Ovalocytes Schistocytes PT with INR INR Sodium Potassium Chloride Carbon Dioxide Anion Gap BUN Creatinine Creat Clearance w eGFR POC Glucometer 36 103 Random Glucose Calcium Total Bilirubin AST ALT Alkaline Phosphatase Creatine Kinase Troponin I Total Protein Albumin Urine Color Urine Appearance Urine pH Ur Specific [place] Urine Protein Urine Glucose (UA) Urine Ketones Urine Blood Urine Nitrite Urine Bilirubin Urine Urobilinogen Ur Leukocyte Esterase Urine WBC (Auto) Urine RBC (Auto) Physical Examination Constitutional: Yes: No Distress, comfortable Cardiovascular: Yes: Regular Rate and Rhythm Respiratory: Yes: Diminished ++ Gastrointestinal: Yes: soft/ hernia + bs present, NT Edema: No Neuro- a0x3 a/p stable gentle fluids monitor for hypoglycemia continue with meds Cardiology and surgical eval noted INR elevated-- no signs of bleeding --hold off Coumadin may start on clears Problem List - Problems (1) Incarcerated hernia Code(s): K46.0 - UNSP ABDOMINAL HERNIA WITH OBSTRUCTION, WITHOUT GANGRENE (2) Abnormal INR Code(s): R79.1 - ABNORMAL COAGULATION PROFILE (3) Afib Code(s): I48.91 - UNSPECIFIED ATRIAL FIBRILLATION Qualifiers: Atrial fibrillation type: persistent Qualified Code(s): I48.1 - Persistent atrial fibrillation (4) Anemia Code(s): D64.9 - ANEMIA, UNSPECIFIED Qualifiers: Anemia type: unspecified type Qualified Code(s): D64.9 - Anemia, unspecified (5) Anticoagulated on Coumadin 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
--- NOTE | 2018-03-19 13:49 | PN ---
Progress Note, Physician History of Present Illness: PULMONARY ALERT,C/O MILD SOB,+ MILD ABD DISCOMFORT - Current Medication List Current Medications: Active Medications Carvedilol (Coreg -) 25 mg PO BID ALEX Guaifenesin (Robitussin -) 10 ml PO Q6H PRN PRN Reason: COUGH Last Admin: 03/18/18 18:50 Dose: 10 ml Potassium Chloride/Dextrose/Sod Cl (D5-1/2ns+20 Meq Kcl -) 20 meq in 1,000 mls @ 60 mls/hr IV ASDIR ALEX Pantoprazole Sodium (Protonix -) 40 mg PO DAILY ALEX Sertraline HCl (Zoloft -) 50 mg PO DAILY ALEX Tamsulosin HCl (Flomax -) 0.4 mg PO DAILY@0830 [facility] - Objective Vital Signs: Vital Signs Temperature 97.6 F 03/19/18 08:45 Pulse Rate 126 H 03/19/18 08:45 Respiratory Rate 18 03/19/18 08:45 Blood Pressure 125/70 03/19/18 08:45 O2 Sat by Pulse Oximetry (%) 96 03/19/18 01:11 Constitutional: Yes: Well Nourished, Calm Eyes: Yes: WNL HENT: Yes: WNL Neck: Yes: WNL Cardiovascular: Yes: Pulse Irregular, S1, S2 Respiratory: Yes: Diminished Gastrointestinal: Yes: Soft, Tenderness Extremities: Yes: WNL Edema: No Labs: CBC, BMP 03/19/18 06:30 03/19/18 06:30 INR, PTT INR 7.24 (0.83-1.09) H* 03/19/18 06:30 Assessment/Plan Problem List - Problems (1) Incarcerated hernia Code(s): K46.0 - UNSP ABDOMINAL HERNIA WITH OBSTRUCTION, WITHOUT GANGRENE (2) Acute on chronic renal failure Code(s): N17.9 - ACUTE KIDNEY FAILURE, UNSPECIFIED; N18.9 - CHRONIC KIDNEY DISEASE, UNSPECIFIED Qualifiers: Chronic kidney disease stage: stage 3 (moderate) (3) Afib Code(s): I48.91 - UNSPECIFIED ATRIAL FIBRILLATION Qualifiers: Atrial fibrillation type: persistent Qualified Code(s): I48.1 - Persistent atrial fibrillation (4) Anemia Code(s): D64.9 - ANEMIA, UNSPECIFIED Qualifiers: Anemia type: unspecified type Qualified Code(s): D64.9 - Anemia, unspecified (5) Anticoagulated on Coumadin Code(s): Z79.01 - [facility] (CURRENT) USE OF ANTICOAGULANTS (6) Coronary artery disease Code(s): I25.10 - ATHSCL HEART DISEASE OF [place] CORONARY ARTERY W/O ANG PCTRS Qualifiers: Coronary Disease-Associated Artery/Lesion type: [place] artery Hoh vs. transplanted heart: [place] heart Associated angina: without angina Qualified Code(s): I25.10 - Atherosclerotic heart disease of [place] coronary artery without angina pectoris (7) HTN (hypertension) Code(s): I10 - ESSENTIAL (PRIMARY) HYPERTENSION Qualifiers: Hypertension type: essential hypertension Qualified Code(s): I10 - Essential (primary) hypertension (8) Hyperlipidemia Code(s): E78.5 - HYPERLIPIDEMIA, UNSPECIFIED Qualifiers: Hyperlipidemia type: pure hypercholesterolemia Qualified Code(s): E78.00 - Pure hypercholesterolemia, unspecified; E78.0 - Pure hypercholesterolemia (9) Pacemaker Code(s): Z95.0 - PRESENCE OF CARDIAC PACEMAKER (10) Pleural effusion, right Code(s): J90 - PLEURAL EFFUSION, NOT ELSEWHERE CLASSIFIED (11) Pulmonary hypertension Code(s): I27.2 - OTHER SECONDARY PULMONARY HYPERTENSION * DO NOT USE * (12) Sick sinus syndrome Code(s): I49.5 - SICK SINUS SYNDROME (13) Status post coronary artery stent placement Code(s): Z95.5 - PRESENCE OF CORONARY ANGIOPLASTY IMPLANT AND GRAFT (14) Supratherapeutic INR Code(s): R79.1 - ABNORMAL COAGULATION PROFILE (15) Systolic and diastolic CHF, acute on chronic Code(s): I50.43 - ACUTE ON CHRONIC COMBINED SYSTOLIC AND DIASTOLIC HRT FAIL (16) Type 2 diabetes mellitus Code(s): E11.9 - TYPE 2 DIABETES MELLITUS WITHOUT COMPLICATIONS Qualifiers: Diabetes mellitus complication status: with kidney complications Diabetes mellitus complication detail: with chronic kidney disease Chronic kidney disease stage: stage 3 (moderate) Assessment/Plan Bowel rest IVF repeat Right thoracentesis if enlarges or becomes symptomatic monitor inr f/u chest x-ray analgesics DR AKINS
--- NOTE | 2018-03-19 13:52 | PN ---
Progress Note (short form) - Note Progress Note: Attending Surgeon Seen in f/u No c/o VSS AF abdomen-soft; non tender; hernia reduces easily IMP: NO evidence of an acute surgical abdomen PLAN: Patient is a prohibitie risk for hernia repair given # co morbid conditions; advance diet as tolerated. Regan Hill MD FACS
[2018-03-19] MEDS: D5-1/2NS+20 MEQ KCL - 20 MEQ/1,000 ML INFUS.BAG IV SCH (15:00)
[2018-03-19] MEDS: guaiFENesin 200 MG/10 ML 10 ML UNIT-DOSE CUPS PO PRN (17:34)
[2018-03-19] MEDS ORDERED: ACETAMINOPHEN 500 MG TABLET (FP) PO ONE (17:38)
[2018-03-19] MEDS ORDERED: ALBUTEROL SO4 2.5/IPRATROPIUM 0.5 INH SOL 3 ML VIAL.NEB. NEB ONE (17:46)
[2018-03-19] MEDS ORDERED: MORPHINE SULFATE 2 MG/ML VIAL IVPUSH PRN (18:04)
[2018-03-19] MEDS: ALBUTEROL SO4 2.5/IPRATROPIUM 0.5 INH SOL 3 ML VIAL.NEB. NEB PRN ×2 (18:13→22:02)
[2018-03-19] MEDS: CARVEDILOL 25 MG TABLET (FP) PO SCH (21:53)
[2018-03-19] MEDS ORDERED: CHLORHEXIDINE GLUCONATE 4% CLEANSER FOR DECOLONIZATION TP SCH (22:00)
[2018-03-19] MEDS ORDERED: DEXTROSE 50%-WATER - 25 GM/50 ML VIAL ONE (23:15)
[2018-03-19] MEDS ORDERED: DEXTROSE 50%-WATER - 25 GM/50 ML VIAL IVPUSH ONE (23:21)
[2018-03-20] MEDS: guaiFENesin 200 MG/10 ML 10 ML UNIT-DOSE CUPS PO PRN ×2 (00:30→09:25)
[2018-03-20] MEDS: D5-1/2NS+20 MEQ KCL - 20 MEQ/1,000 ML INFUS.BAG IV SCH (02:52)
[2018-03-20] MEDS ORDERED: DEXTROSE 50%-WATER - 25 GM/50 ML VIAL IVPUSH ONE (04:32)
[2018-03-20] MEDS ORDERED: DEXTROSE 50%-WATER - 25 GM/50 ML VIAL ONE (04:35)
[2018-03-20] MEDS: DEXTROSE 4 GM TAB.CHEW PO PRN ×2 (04:44→22:04)
[2018-03-20 07:46] LABS: PROTHROMBIN TIME (PATIENT) 79.4 SEC (9.7-13.0)
--- NOTE | 2018-03-20 08:28 | PN ---
Progress Note (short form) - Note Progress Note: Chief Complaint: Events noted, notes reviewed, Denies any chest discomfort, reports persistent dyspnea but improved since yesterday History of Present Illness: Seen and examined. Events noted, notes reviewed, Denies any chest discomfort, reports persistent dyspnea but improved since yesterday Echocardiography dated 02/09/2018 revealed normal LV size with severely decreased LV systolic function, severe TR, severe pulmonary HTN, pacer in RV Current Medications: Current Medications Albuterol/Ipratropium (Duoneb -) 1 amp NEB Q6H PRN PRN Reason: SHORTNESS OF BREATH Last Admin: 03/19/18 22:02 Dose: 1 amp Carvedilol (Coreg -) 25 mg PO BID ALEX Last Admin: 03/19/18 21:53 Dose: 25 mg Dextrose (Glucose Tablet -) 4 gm PO ONCE PRN PRN Reason: BG < 60mg/dl Last Admin: 03/20/18 04:44 Dose: 4 gm Guaifenesin (Robitussin -) 10 ml PO Q6H PRN PRN Reason: COUGH Last Admin: 03/20/18 00:30 Dose: 10 ml Potassium Chloride/Dextrose/Sod Cl (D5-1/2ns+20 Meq Kcl -) 20 meq in 1,000 mls @ 60 mls/hr IV ASDIR ALEX Last Admin: 03/20/18 02:52 Dose: 60 mls/hr Morphine Sulfate (Morphine Sulfate) 1 mg IVPUSH Q6H PRN PRN Reason: PAIN LEVEL 7 - 10 Last Admin: 03/19/18 21:53 Dose: 1 mg Pantoprazole Sodium (Protonix -) 40 mg PO DAILY [facility] Sertraline HCl (Zoloft -) 50 mg PO DAILY ALEX Tamsulosin HCl (Flomax -) 0.4 mg PO DAILY@0830 [facility] - Objective Vital Signs: Last Vital Signs Temp Pulse Resp BP Pulse Ox 97.4 F L 76 18 102/62 95 03/20/18 06:00 03/20/18 06:00 03/20/18 06:00 03/20/18 06:00 03/19/18 21:00 Intake & Output 03/17/18 03/18/18 03/19/18 03/20/18 23:59 23:59 23:59 23:59 Intake Total 2059 1020 Balance 2059 1020 Weight 135 lb Neck: Supple Negative JVD No bruit Respiratory: Diminished breath sounds at the bases Cardiovascular: S1, S2 Irregularly Irregular Gastrointestinal: Soft Benign Normal Bowel Sounds Ext: Negative Edema Labs: CBC, BMP 03/19/18 06:30 INR, PTT INR 7.24 (0.83-1.09) H* 03/19/18 06:30 Hepatic Panel Total Bilirubin 0.7 mg/dL (0.2-1) 03/19/18 06:30 AST 93 U/L (15-37) H 03/19/18 06:30 ALT 64 U/L (13-61) H 03/19/18 06:30 Alkaline Phosphatase 124 U/L (45-117) H 03/19/18 06:30 Albumin 2.5 g/dl (3.4-5.0) L 03/19/18 06:30 Assessment/Plan ASSESSMENT: 1. Incarcerated spigelian hernia without strangulation, for conservative management as per surgical team considering patient's co-morbidities 2. Right pleural effusion with underlying history of breast carcinoma post mastectomy post chemotherapy, prior history of thoracentesis 3. 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 CAD post PCI/stent angina pectoris 5. Persistent/chronic atrial fibrillation on A/C, [id number] score of 6, supra- therapeutic INR 6. AV block post PPM 7. Mitral valve and tricuspid valve regurgitation 8. HTN/HCVD 9. DM 10. Hypercholesterolemia 11. Acute on CKD with hyperkalemia, resolved Hyperkalemia PLAN: 1. Continue to withhold anticoagulation therapy/Coumadin in view of the above- noted supra-therapeutic INR to be resumed once in range unless intervention is planned 2. Continue Carvedilol but decrease dosage, hemodynamics permitting 3. Initiate Entresto unless it is absolutely contraindicated, hemodynamics permitting with close monitoring of renal function and potassium level 4. Withhold resumption of Amlodipine 5. As outlined in the initial consult, consider repeat right thoracentesis once INR is acceptable/appropriate, to be discussed with the pulmonary team Adriel Phoenix M.D.
[2018-03-20 08:33] LABS: INR 6.6 (0.83-1.09)
[2018-03-20 09:07] LABS: ANION GAP 9 MMOL/L (8-16); BLOOD UREA NITROGEN 47 mg/dL (7-18); CHLORIDE 100 mmol/L (98-107); CO2 24 mmol/L (21-32); CREATININE 2.8 mg/dL (0.55-1.3); GLUCOSE,RANDOM 101 mg/dL (74-106); SODIUM 133 mmol/L (136-145)
[2018-03-20] MEDS: CARVEDILOL 25 MG TABLET (FP) PO SCH ×2 (11:18→21:48)
[2018-03-20] MEDS: TAMSULOSIN HCL 0.4 MG CAP PO SCH (11:19)
[2018-03-20] MEDS: SERTRALINE HCL 50 MG TABLET (FP) PO SCH (11:19)
[2018-03-20] MEDS: PANTOPRAZOLE 40 MG TABLET (FP) PO SCH (11:19)
--- NOTE | 2018-03-20 13:51 | PN ---
Progress Note, Physician History of Present Illness: PULMONARY ALERT, C/O COUGH DIFFICULTY BRING UP SPUTUM. LESS DYSPNEIC,LESS ABD DISCOMFORT - Current Medication List Current Medications: Active Medications Albuterol/Ipratropium (Duoneb -) 1 amp NEB Q6H PRN PRN Reason: SHORTNESS OF BREATH Last Admin: 03/19/18 22:02 Dose: 1 amp Carvedilol (Coreg -) 25 mg PO BID [facility] Last Admin: 03/20/18 11:18 Dose: Not Given Dextrose (Glucose Tablet -) 4 gm PO ONCE PRN PRN Reason: BG < 60mg/dl Last Admin: 03/20/18 04:44 Dose: 4 gm Guaifenesin (Robitussin -) 10 ml PO Q6H PRN PRN Reason: COUGH Last Admin: 03/20/18 09:25 Dose: 10 ml Morphine Sulfate (Morphine Sulfate) 1 mg IVPUSH Q6H PRN PRN Reason: PAIN LEVEL 7 - 10 Last Admin: 03/19/18 21:53 Dose: 1 mg Pantoprazole Sodium (Protonix -) 40 mg PO DAILY [facility] Last Admin: 03/20/18 11:19 Dose: 40 mg Sertraline HCl (Zoloft -) 50 mg PO DAILY [facility] Last Admin: 03/20/18 11:19 Dose: 50 mg Tamsulosin HCl (Flomax -) 0.4 mg PO DAILY@0830 [facility] Last Admin: 03/20/18 11:19 Dose: 0.4 mg - Objective Vital Signs: Vital Signs Temperature 97.4 F L 03/20/18 06:00 Pulse Rate 76 03/20/18 06:00 Respiratory Rate 18 03/20/18 06:00 Blood Pressure 102/62 03/20/18 06:00 O2 Sat by Pulse Oximetry (%) 95 03/19/18 21:00 Constitutional: Yes: Well Nourished, Calm Eyes: Yes: WNL HENT: Yes: WNL Neck: Yes: WNL Cardiovascular: Yes: Pulse Irregular, S1, S2 Respiratory: Yes: Diminished, Rales (FEW CRACKLES) Gastrointestinal: Yes: Normal Bowel Sounds, Soft Extremities: Yes: WNL Edema: No Labs: CBC, BMP 03/19/18 06:30 03/20/18 06:40 INR, PTT INR 6.60 (0.83-1.09) H* 03/20/18 06:40 Assessment/Plan Problem List - Problems (1) Incarcerated hernia Code(s): K46.0 - UNSP ABDOMINAL HERNIA WITH OBSTRUCTION, WITHOUT GANGRENE NOT A SURGICAL CANDIDATE (2) Acute on chronic renal failure Code(s): N17.9 - ACUTE KIDNEY FAILURE, UNSPECIFIED; N18.9 - CHRONIC KIDNEY DISEASE, UNSPECIFIED Qualifiers: Chronic kidney disease stage: stage 3 (moderate) (3) Afib Code(s): I48.91 - UNSPECIFIED ATRIAL FIBRILLATION Qualifiers: Atrial fibrillation type: persistent Qualified Code(s): I48.1 - Persistent atrial fibrillation (4) Anemia Code(s): D64.9 - ANEMIA, UNSPECIFIED Qualifiers: Anemia type: unspecified type Qualified Code(s): D64.9 - Anemia, unspecified (5) Anticoagulated on Coumadin Code(s): Z79.01 - PRINTING SPECIALIST (CURRENT) USE OF ANTICOAGULANTS (6) Coronary artery disease Code(s): I25.10 - ATHSCL HEART DISEASE OF [place] CORONARY ARTERY W/O ANG PCTRS Qualifiers: Coronary Disease-Associated Artery/Lesion type: [place] artery [place] vs. transplanted heart: [place] heart Associated angina: without angina Qualified Code(s): I25.10 - Atherosclerotic heart disease of [place] coronary artery without angina pectoris (7) HTN (hypertension) Code(s): I10 - ESSENTIAL (PRIMARY) HYPERTENSION Qualifiers: Hypertension type: essential hypertension Qualified Code(s): I10 - Essential (primary) hypertension (8) Hyperlipidemia Code(s): E78.5 - HYPERLIPIDEMIA, UNSPECIFIED Qualifiers: Hyperlipidemia type: pure hypercholesterolemia Qualified Code(s): E78.00 - Pure hypercholesterolemia, unspecified; E78.0 - Pure hypercholesterolemia (9) Pacemaker Code(s): Z95.0 - PRESENCE OF CARDIAC PACEMAKER (10) Pleural effusion, right Code(s): J90 - PLEURAL EFFUSION, NOT ELSEWHERE CLASSIFIED (11) Pulmonary hypertension Code(s): I27.2 - OTHER SECONDARY PULMONARY HYPERTENSION * DO NOT USE * (12) Sick sinus syndrome Code(s): I49.5 - SICK SINUS SYNDROME (13) Status post coronary artery stent placement Code(s): Z95.5 - PRESENCE OF CORONARY ANGIOPLASTY IMPLANT AND GRAFT (14) Supratherapeutic INR Code(s): R79.1 - ABNORMAL COAGULATION PROFILE (15) Systolic and diastolic CHF, acute on chronic Code(s): I50.43 - ACUTE ON CHRONIC COMBINED SYSTOLIC AND DIASTOLIC HRT FAIL (16) Type 2 diabetes mellitus Code(s): E11.9 - TYPE 2 DIABETES MELLITUS WITHOUT COMPLICATIONS Qualifiers: Diabetes mellitus complication status: with kidney complications Diabetes mellitus complication detail: with chronic kidney disease Chronic kidney disease stage: stage 3 (moderate) Assessment/Plan repeat Right thoracentesis if enlarges or becomes symptomatic monitor inr f/u chest x-ray analgesics inhaled bronchodilators DR AKINS
[2018-03-20] MEDS: ALBUTEROL SO4 2.5/IPRATROPIUM 0.5 INH SOL 3 ML VIAL.NEB. NEB PRN ×2 (14:28→21:45)
--- NOTE | 2018-03-20 16:20 | PN ---
Progress Note (short form) - Note Progress Note: coughing+ not SOB no abd pain tolerating diet Vital Signs - 24 hr 03/19/18 03/19/18 03/19/18 18:42 21:00 23:00 Temperature 97.6 F Pulse Rate 64 80 Respiratory 18 18 22 H Rate Blood Pressure 116/56 L 127/100 O2 Sat by Pulse 95 Oximetry (%) 03/20/18 03/20/18 03/20/18 06:00 09:00 10:54 Temperature 97.4 F L 97.2 F L Pulse Rate 76 108 H Respiratory 18 18 18 Rate Blood Pressure 102/62 90/55 L O2 Sat by Pulse 94 L Oximetry (%) 03/20/18 15:43 Temperature 97.4 F L Pulse Rate 74 Respiratory 18 Rate Blood Pressure 109/64 O2 Sat by Pulse Oximetry (%) Current Medications Generic Name Dose Route Start Last Admin Trade Name Freq PRN Reason Stop Dose Admin Albuterol/Ipratropium 1 amp 03/19/18 17:38 03/20/18 14:28 Duoneb - NEB 1 amp Q6H PRN Administration SHORTNESS OF BREATH Carvedilol 25 mg 03/19/18 22:00 03/20/18 11:18 Coreg - PO Not Given BID [facility] Dextrose 4 gm 03/19/18 23:22 03/20/18 04:44 Glucose Tablet - PO 4 gm ONCE PRN Administration BG < 60mg/dl Guaifenesin 10 ml 03/18/18 18:32 03/20/18 09:25 Robitussin - PO 10 ml Q6H PRN Administration COUGH Morphine Sulfate 1 mg 03/19/18 18:04 03/19/18 21:53 Morphine Sulfate IVPUSH 1 mg Q6H PRN Administration PAIN LEVEL 7 - 10 Pantoprazole Sodium 40 mg 03/20/18 10:00 03/20/18 11:19 Protonix - PO 40 mg DAILY [facility] Administration Sertraline HCl 50 mg 03/20/18 10:00 03/20/18 11:19 Zoloft - PO 50 mg DAILY [facility] Administration Tamsulosin HCl 0.4 mg 03/20/18 08:30 03/20/18 11:19 Flomax - PO 0.4 mg DAILY@0830 [facility] Administration Laboratory Results - last 24 hr 03/19/18 03/20/18 03/20/18 08:08 06:40 06:40 PT with INR 79.40 H INR 6.60 H* Sodium 133 L Potassium 5.0 Chloride 100 Carbon Dioxide 24 Anion Gap 9 BUN 47 H Creatinine 2.8 H Creat Clearance w eGFR 21.86 POC Glucometer 31 Random Glucose 101 Calcium 7.0 L 03/20/18 14:12 PT with INR INR Sodium Potassium Chloride Carbon Dioxide Anion Gap BUN Creatinine Creat Clearance w eGFR POC Glucometer 79 Random Glucose Calcium Physical Examination Constitutional: Yes: No Distress, comfortable Cardiovascular: Yes: Regular Rate and Rhythm Respiratory: Yes: Diminished ++ Gastrointestinal: Yes: soft/ hernia + bs present, NT Edema: No Neuro- a0x3 a/p stable dc iv fluids INR decreasing monitor for hypoglycemia continue with meds Cardiology and surgical eval noted advance diet as tolerated pt does not want any surgical interventions for hernia Problem List - Problems (1) Incarcerated hernia Code(s): K46.0 - UNSP ABDOMINAL HERNIA WITH OBSTRUCTION, WITHOUT GANGRENE (2) Abnormal INR Code(s): R79.1 - ABNORMAL COAGULATION PROFILE (3) Afib Code(s): I48.91 - UNSPECIFIED ATRIAL FIBRILLATION Qualifiers: Atrial fibrillation type: persistent Qualified Code(s): I48.1 - Persistent atrial fibrillation (4) Anemia Code(s): D64.9 - ANEMIA, UNSPECIFIED Qualifiers: Anemia type: unspecified type Qualified Code(s): D64.9 - Anemia, unspecified (5) Anticoagulated on Coumadin Code(s): Z79.01 - HALF-WAY (CURRENT) USE OF ANTICOAGULANTS (6) Breast cancer in male Code(s): C50.929 - MALIGNANT NEOPLASM OF UNSP SITE OF UNSPECIFIED MALE BREAST (7) Chronic kidney disease (CKD) Code(s): N18.9 - CHRONIC KIDNEY DISEASE, UNSPECIFIED Qualifiers: Chronic kidney disease stage: unspecified stage Qualified Code(s): N18.9 - Chronic kidney disease, unspecified
[2018-03-21] MEDS ORDERED: DEXTROSE 50%-WATER 25 GM/50 ML DISP.SYRIN ONE (02:52)
[2018-03-21] MEDS ORDERED: DEXTROSE 50%-WATER - 25 GM/50 ML VIAL IVPUSH ONE (03:00)
[2018-03-21] MEDS: LACTATED RINGERS SOLUTION 1,000 ML/1,000 ML INFUS.BAG IV SCH (07:58)
[2018-03-21] MEDS: MUPIROCIN 2% TOPICAL OINTMENT FOR DECOLONIZATION NS SCH (07:59)
[2018-03-21 09:16] LABS: PROTHROMBIN TIME (PATIENT) 78.3 SEC (9.7-13.0)
[2018-03-21 10:17] LABS: INR 6.51 (0.83-1.09)
[2018-03-21] MEDS: CARVEDILOL 25 MG TABLET (FP) PO SCH ×2 (11:01→21:13)
[2018-03-21] MEDS: TAMSULOSIN HCL 0.4 MG CAP PO SCH (11:02)
[2018-03-21] MEDS: guaiFENesin 200 MG/10 ML 10 ML UNIT-DOSE CUPS PO PRN (11:02)
[2018-03-21] MEDS: SERTRALINE HCL 50 MG TABLET (FP) PO SCH (11:02)
[2018-03-21] MEDS: PANTOPRAZOLE 40 MG TABLET (FP) PO SCH (11:02)
--- NOTE | 2018-03-21 11:40 | PN ---
Progress Note (short form) - Note Progress Note: pt seen/ examined comfortable c/c - cough tolerating diet denies abd pain Vital Signs Temp 97.9 F 03/21/18 09:13 Pulse 70 03/21/18 09:13 Resp 18 03/21/18 09:13 BP 108/61 03/21/18 09:13 Pulse Ox 94 L 03/20/18 21:00 Intake & Output 03/20/18 03/20/18 03/21/18 11:59 23:59 11:59 Intake Total 1380 840 450 Output Total 200 Balance 1380 840 250 Intake: IV 720 240 D5-1/2NS+20 MEQ KCL - 20 720 240 meq In 1,000 ml @ 60 mls/ hr IV ASDIR [facility] Rx#: [id number] IVPB 100 Oral 560 600 450 Output: Urine 200 Void 200 Other: Voiding Method Incontinent Incontinent Incontinent # Unmeasured Voids Void 2 1 Bowel Movement No No No Active Medications Albuterol/Ipratropium (Duoneb -) 1 amp NEB Q6H PRN PRN Reason: SHORTNESS OF BREATH Last Admin: 03/20/18 21:45 Dose: 1 amp Carvedilol (Coreg -) 25 mg PO BID [facility] Last Admin: 03/21/18 11:01 Dose: 25 mg Dextrose (Glucose Tablet -) 4 gm PO ONCE PRN PRN Reason: BG < 60mg/dl Last Admin: 03/20/18 22:04 Dose: 4 gm Guaifenesin (Robitussin -) 10 ml PO Q6H PRN PRN Reason: COUGH Last Admin: 03/21/18 11:02 Dose: 10 ml Morphine Sulfate (Morphine Sulfate) 1 mg IVPUSH Q6H PRN PRN Reason: PAIN LEVEL 7 - 10 Last Admin: 03/19/18 21:53 Dose: 1 mg Pantoprazole Sodium (Protonix -) 40 mg PO DAILY [facility] Last Admin: 03/21/18 11:02 Dose: 40 mg Sertraline HCl (Zoloft -) 50 mg PO DAILY [facility] Last Admin: 03/21/18 11:02 Dose: 50 mg Tamsulosin HCl (Flomax -) 0.4 mg PO DAILY@0830 [facility] Last Admin: 03/21/18 11:02 Dose: 0.4 mg CBC, BMP 03/19/18 06:30 03/20/18 06:40 INR, PTT INR 6.51 (0.83-1.09) H* 03/21/18 08:15 Physical exam Awake and comfortable No distress Lungs--- diminished at bases CVS--heart sounds irregular abdomen--soft. hernia present. Extremities--no edema Neuro--alert and awake assessment and plan Clinically stable no acute Hernia issues--- not incarcerated Conservative management f/u labs/ renal function still gets short of breath and coughing cxr Physical therapy daily oob - chair monitor inr Coumadin on hold no evidence of bleeding will follow Problem List - Problems (1) Incarcerated hernia Code(s): K46.0 - UNSP ABDOMINAL HERNIA WITH OBSTRUCTION, WITHOUT GANGRENE (2) Abnormal INR Code(s): R79.1 - ABNORMAL COAGULATION PROFILE (3) Afib Code(s): I48.91 - UNSPECIFIED ATRIAL FIBRILLATION Qualifiers: Atrial fibrillation type: persistent Qualified Code(s): I48.1 - Persistent atrial fibrillation (4) Anticoagulated on Coumadin Code(s): Z79.01 - CAR SPOTTER (CURRENT) USE OF ANTICOAGULANTS (5) Ascites Code(s): R18.8 - OTHER ASCITES Qualifiers: Ascites type: other type Qualified Code(s): R18.8 - Other ascites (6) Breast cancer in male Code(s): C50.929 - MALIGNANT NEOPLASM OF UNSP SITE OF UNSPECIFIED MALE BREAST (7) Chronic kidney disease (CKD) Code(s): N18.9 - CHRONIC KIDNEY DISEASE, UNSPECIFIED Qualifiers: Chronic kidney disease stage: unspecified stage Qualified Code(s): N18.9 - Chronic kidney disease, unspecified (8) Coronary artery disease Code(s): I25.10 - ATHSCL HEART DISEASE OF [place] CORONARY ARTERY W/O ANG PCTRS Qualifiers: Coronary Disease-Associated Artery/Lesion type: [place] artery [place] vs. transplanted heart: [place] heart Associated angina: without angina Qualified Code(s): I25.10 - Atherosclerotic heart disease of [place] coronary artery without angina pectoris (9) Pacemaker Code(s): Z95.0 - PRESENCE OF CARDIAC PACEMAKER (10) Pleural effusion Code(s): J90 - PLEURAL EFFUSION, NOT ELSEWHERE CLASSIFIED
[2018-03-21] MEDS: DEXTROSE 4 GM TAB.CHEW PO PRN ×2 (11:57→15:23)
--- NOTE | 2018-03-21 12:29 | PN ---
Progress Note, Physician History of Present Illness: N/V abdominal pain, cough and chest congestion, dyspnea resolving. Tolerating lunch. - Current Medication List Current Medications: Active Medications Albuterol/Ipratropium (Duoneb -) 1 amp NEB Q6H PRN PRN Reason: SHORTNESS OF BREATH Last Admin: 03/20/18 21:45 Dose: 1 amp Carvedilol (Coreg -) 25 mg PO BID [facility] Last Admin: 03/21/18 11:01 Dose: 25 mg Dextrose (Glucose Tablet -) 4 gm PO ONCE PRN PRN Reason: BG < 60mg/dl Last Admin: 03/21/18 11:57 Dose: 4 gm Guaifenesin (Robitussin -) 10 ml PO Q6H PRN PRN Reason: COUGH Last Admin: 03/21/18 11:02 Dose: 10 ml Morphine Sulfate (Morphine Sulfate) 1 mg IVPUSH Q6H PRN PRN Reason: PAIN LEVEL 7 - 10 Last Admin: 03/19/18 21:53 Dose: 1 mg Pantoprazole Sodium (Protonix -) 40 mg PO DAILY [facility] Last Admin: 03/21/18 11:02 Dose: 40 mg Sertraline HCl (Zoloft -) 50 mg PO DAILY [facility] Last Admin: 03/21/18 11:02 Dose: 50 mg Tamsulosin HCl (Flomax -) 0.4 mg PO DAILY@0830 [facility] Last Admin: 03/21/18 11:02 Dose: 0.4 mg - Objective Vital Signs: Vital Signs Temperature 97.9 F 03/21/18 09:13 Pulse Rate 70 03/21/18 09:13 Respiratory Rate 18 03/21/18 09:13 Blood Pressure 108/61 03/21/18 09:13 O2 Sat by Pulse Oximetry (%) 94 L 03/20/18 21:00 Constitutional: Yes: No Distress, Calm Neck: Yes: Supple Cardiovascular: Yes: Pulse Irregular Respiratory: Yes: Regular, Diminished Gastrointestinal: Yes: Normal Bowel Sounds, Soft Edema: No Labs: CBC, BMP 03/19/18 06:30 03/20/18 06:40 INR, PTT INR 6.51 (0.83-1.09) H* 03/21/18 08:15 Problem List - Problems (1) Incarcerated hernia Code(s): K46.0 - UNSP ABDOMINAL HERNIA WITH OBSTRUCTION, WITHOUT GANGRENE (2) Acute on chronic renal failure Code(s): N17.9 - ACUTE KIDNEY FAILURE, UNSPECIFIED; N18.9 - CHRONIC KIDNEY DISEASE, UNSPECIFIED Qualifiers: Chronic kidney disease stage: stage 3 (moderate) (3) Afib Code(s): I48.91 - UNSPECIFIED ATRIAL FIBRILLATION Qualifiers: Atrial fibrillation type: persistent Qualified Code(s): I48.1 - Persistent atrial fibrillation (4) Anemia Code(s): D64.9 - ANEMIA, UNSPECIFIED Qualifiers: Anemia type: unspecified type Qualified Code(s): D64.9 - Anemia, unspecified (5) Anticoagulated on Coumadin Code(s): Z79.01 - MCC (CURRENT) USE OF ANTICOAGULANTS (6) Coronary artery disease Code(s): I25.10 - ATHSCL HEART DISEASE OF [place] CORONARY ARTERY W/O ANG PCTRS Qualifiers: Coronary Disease-Associated Artery/Lesion type: [place] artery [place] vs. transplanted heart: [place] heart Associated angina: without angina Qualified Code(s): I25.10 - Atherosclerotic heart disease of [place] coronary artery without angina pectoris (7) HTN (hypertension) Code(s): I10 - ESSENTIAL (PRIMARY) HYPERTENSION Qualifiers: Hypertension type: essential hypertension Qualified Code(s): I10 - Essential (primary) hypertension (8) Hyperlipidemia Code(s): E78.5 - HYPERLIPIDEMIA, UNSPECIFIED Qualifiers: Hyperlipidemia type: pure hypercholesterolemia Qualified Code(s): E78.00 - Pure hypercholesterolemia, unspecified; E78.0 - Pure hypercholesterolemia (9) Pacemaker Code(s): Z95.0 - PRESENCE OF CARDIAC PACEMAKER (10) Pleural effusion, right Code(s): J90 - PLEURAL EFFUSION, NOT ELSEWHERE CLASSIFIED (11) Pulmonary hypertension Code(s): I27.2 - OTHER SECONDARY PULMONARY HYPERTENSION * DO NOT USE * (12) Sick sinus syndrome Code(s): I49.5 - SICK SINUS SYNDROME (13) Status post coronary artery stent placement Code(s): Z95.5 - PRESENCE OF CORONARY ANGIOPLASTY IMPLANT AND GRAFT (14) Supratherapeutic INR Code(s): R79.1 - ABNORMAL COAGULATION PROFILE (15) Systolic and diastolic CHF, acute on chronic Code(s): I50.43 - ACUTE ON CHRONIC COMBINED SYSTOLIC AND DIASTOLIC HRT FAIL (16) Type 2 diabetes mellitus Code(s): E11.9 - TYPE 2 DIABETES MELLITUS WITHOUT COMPLICATIONS Qualifiers: Diabetes mellitus complication status: with kidney complications Diabetes mellitus complication detail: with chronic kidney disease Chronic kidney disease stage: stage 3 (moderate) Assessment/Plan 02/09/2018 Echo: Normal LV size with severely decreased LV fxn, severe TR, severe pulm HTN, pacer in RV 1. Incarcerated spigelian hernia without strangulation, for conservative management as per surgical team considering patient's co-morbidities 2. Right pleural effusion with underlying history of breast carcinoma post mastectomy post chemotherapy, prior history of thoracentesis 3. 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 CAD post PCI/stent angina pectoris 5. Persistent/chronic atrial fibrillation on A/C, [id number] score of 6, supratherapeutic INR 6. AV block post PPM 7. Mitral valve and tricuspid valve regurgitation 8. HTN/HCVD 9. DM 10. Hypercholesterolemia 11. Acute on CKD with hyperkalemia, resolved Hyperkalemia PLAN: 1. Continue to withhold anticoagulation therapy/Coumadin in view of the above- noted supratherapeutic INR to be resumed once in range unless intervention is planned 2. Continue Carvedilol 25 bid hemodynamics permitting 3. Initiate Entresto once Acute on CKD with hyperkalemia resolves 4. As outlined in the initial consult, consider repeat right thoracentesis once INR is acceptable/appropriate, to be discussed with the pulmonary team
--- NOTE | 2018-03-21 12:46 | PN ---
Progress Note, Physician History of Present Illness: PULMONARY ALERT,ABD PAIN IMPROVED NO DISTRESS,+ COUGH - Current Medication List Current Medications: Active Medications Albuterol/Ipratropium (Duoneb -) 1 amp NEB Q6H PRN PRN Reason: SHORTNESS OF BREATH Last Admin: 03/20/18 21:45 Dose: 1 amp Carvedilol (Coreg -) 25 mg PO BID [facility] Last Admin: 03/21/18 11:01 Dose: 25 mg Dextrose (Glucose Tablet -) 4 gm PO ONCE PRN PRN Reason: BG < 60mg/dl Last Admin: 03/21/18 11:57 Dose: 4 gm Guaifenesin (Robitussin -) 10 ml PO Q6H PRN PRN Reason: COUGH Last Admin: 03/21/18 11:02 Dose: 10 ml Morphine Sulfate (Morphine Sulfate) 1 mg IVPUSH Q6H PRN PRN Reason: PAIN LEVEL 7 - 10 Last Admin: 03/19/18 21:53 Dose: 1 mg Pantoprazole Sodium (Protonix -) 40 mg PO DAILY [facility] Last Admin: 03/21/18 11:02 Dose: 40 mg Sertraline HCl (Zoloft -) 50 mg PO DAILY [facility] Last Admin: 03/21/18 11:02 Dose: 50 mg Tamsulosin HCl (Flomax -) 0.4 mg PO DAILY@0830 [facility] Last Admin: 03/21/18 11:02 Dose: 0.4 mg - Objective Vital Signs: Vital Signs Temperature 97.9 F 03/21/18 09:13 Pulse Rate 70 03/21/18 09:13 Respiratory Rate 18 03/21/18 09:13 Blood Pressure 108/61 03/21/18 09:13 O2 Sat by Pulse Oximetry (%) 94 L 03/20/18 21:00 Constitutional: Yes: Calm, Thin Eyes: Yes: WNL HENT: Yes: WNL Neck: Yes: WNL Cardiovascular: Yes: Regular Rate and Rhythm, S1, S2 Respiratory: Yes: Diminished Gastrointestinal: Yes: Normal Bowel Sounds, Soft Extremities: Yes: WNL Edema: No Labs: CBC, BMP Assessment/Plan Problem List - Problems (1) Incarcerated hernia Code(s): K46.0 - UNSP ABDOMINAL HERNIA WITH OBSTRUCTION, WITHOUT GANGRENE NOT A SURGICAL CANDIDATE (2) Acute on chronic renal failure Code(s): N17.9 - ACUTE KIDNEY FAILURE, UNSPECIFIED; N18.9 - CHRONIC KIDNEY DISEASE, UNSPECIFIED Qualifiers: Chronic kidney disease stage: stage 3 (moderate) (3) Afib Code(s): I48.91 - UNSPECIFIED ATRIAL FIBRILLATION Qualifiers: Atrial fibrillation type: persistent Qualified Code(s): I48.1 - Persistent atrial fibrillation (4) Anemia Code(s): D64.9 - ANEMIA, UNSPECIFIED Qualifiers: Anemia type: unspecified type Qualified Code(s): D64.9 - Anemia, unspecified (5) Anticoagulated on Coumadin Code(s): Z79.01 - SUGAR PLANTATION MANAGER (CURRENT) USE OF ANTICOAGULANTS (6) Coronary artery disease Code(s): I25.10 - ATHSCL HEART DISEASE OF [place] CORONARY ARTERY W/O ANG PCTRS Qualifiers: Coronary Disease-Associated Artery/Lesion type: [place] artery [place] vs. transplanted heart: [place] heart Associated angina: without angina Qualified Code(s): I25.10 - Atherosclerotic heart disease of [place] coronary artery without angina pectoris (7) HTN (hypertension) Code(s): I10 - ESSENTIAL (PRIMARY) HYPERTENSION Qualifiers: Hypertension type: essential hypertension Qualified Code(s): I10 - Essential (primary) hypertension (8) Hyperlipidemia Code(s): E78.5 - HYPERLIPIDEMIA, UNSPECIFIED Qualifiers: Hyperlipidemia type: pure hypercholesterolemia Qualified Code(s): E78.00 - Pure hypercholesterolemia, unspecified; E78.0 - Pure hypercholesterolemia (9) Pacemaker Code(s): Z95.0 - PRESENCE OF CARDIAC PACEMAKER (10) Pleural effusion, right Code(s): J90 - PLEURAL EFFUSION, NOT ELSEWHERE CLASSIFIED (11) Pulmonary hypertension Code(s): I27.2 - OTHER SECONDARY PULMONARY HYPERTENSION * DO NOT USE * (12) Sick sinus syndrome Code(s): I49.5 - SICK SINUS SYNDROME (13) Status post coronary artery stent placement Code(s): Z95.5 - PRESENCE OF CORONARY ANGIOPLASTY IMPLANT AND GRAFT (14) Supratherapeutic INR Code(s): R79.1 - ABNORMAL COAGULATION PROFILE (15) Systolic and diastolic CHF, acute on chronic Code(s): I50.43 - ACUTE ON CHRONIC COMBINED SYSTOLIC AND DIASTOLIC HRT FAIL (16) Type 2 diabetes mellitus Code(s): E11.9 - TYPE 2 DIABETES MELLITUS WITHOUT COMPLICATIONS Qualifiers: Diabetes mellitus complication status: with kidney complications Diabetes mellitus complication detail: with chronic kidney disease Chronic kidney disease stage: stage 3 (moderate) Assessment/Plan repeat Right thoracentesis if enlarges or becomes symptomatic monitor inr f/u chest x-ray today analgesics inhaled bronchodilators DR AKINS
[2018-03-22 07:38] LABS: BASO % 0.1 % (0-2.0); EOS % 1.1 % (0-4.5); HEMATOCRIT 29.3 % (35.4-49); HEMOGLOBIN 9.7 GM/dL (11.7-16.9); LYMPH % 8.9 % (8-40); MCH 32.1 pg (25.7-33.7); MCHC 33.1 g/dl (32.0-35.9); MEAN PLT VOLUME 8.7 fl (7.5-11.1); MONO % 8.8 % (3.8-10.2); NEUT % 81.1 % (42.8-82.8); PLATELET COUNT 159 K/MM3 (134-434); PROTHROMBIN TIME (PATIENT) 61.2 SEC (9.7-13.0); RBC 3.02 M/mm3 (4.00-5.60); RDW 15.9 % (11.9-15.9); WHITE BLOOD COUNT 8.3 K/mm3 (4.0-10.0)
[2018-03-22 08:09] LABS: ALBUMIN 2.2 g/dl (3.4-5.0); ALK PHOS 113 U/L (45-117); ANION GAP 5 MMOL/L (8-16); BILIRUBIN,TOTAL 0.8 mg/dL (0.2-1); BLOOD UREA NITROGEN 47 mg/dL (7-18); CHLORIDE 98 mmol/L (98-107); CO2 29 mmol/L (21-32); CREATININE 2.6 mg/dL (0.55-1.3); GLUCOSE,RANDOM 70 mg/dL (74-106); SGOT/AST 34 U/L (15-37); SGPT/ALT 57 U/L (13-61); SODIUM 132 mmol/L (136-145); TOT PROT 5.3 g/dl (6.4-8.2)
[2018-03-22 08:19] LABS: INR 5.1 (0.83-1.09)
[2018-03-22] MEDS: SERTRALINE HCL 50 MG TABLET (FP) PO SCH (09:10)
[2018-03-22] MEDS: CARVEDILOL 25 MG TABLET (FP) PO SCH ×2 (09:10→22:16)
[2018-03-22] MEDS: PANTOPRAZOLE 40 MG TABLET (FP) PO SCH (09:10)
[2018-03-22] MEDS: TAMSULOSIN HCL 0.4 MG CAP PO SCH (09:10)
[2018-03-22 11:19] LABS: ANISOCYTOSIS 1+; MACROCYTOSIS 1+; PLATELET ESTIMATE NORMAL
[2018-03-22 12:31] LABS: CALCIUM 6.9 mg/dL (8.5-10.1)
--- NOTE | 2018-03-22 12:33 | PN ---
Progress Note (short form) - Note Progress Note: PULMONARY Denies shortness of breath but with persistent cough. Vital Signs Period Temp Pulse Resp BP Sys/[place]oria Pulse Ox Last 24 Hr 97.3 F-98.0 F 63-92 18-20 95-104/49-72 96 Gen: NAD at rest Heart: RRR Lung: scattered rhonchi Abd: soft, nontender Ext: no edema CBC, BMP 03/22/18 06:45 03/22/18 06:45 INR, PTT INR 5.10 (0.83-1.09) H* 03/22/18 06:45 Active Medications Albuterol/Ipratropium (Duoneb -) 1 amp NEB Q6H PRN PRN Reason: SHORTNESS OF BREATH Last Admin: 03/20/18 21:45 Dose: 1 amp Carvedilol (Coreg -) 25 mg PO BID [facility] Last Admin: 03/22/18 09:10 Dose: 25 mg Dextrose (Glucose Tablet -) 4 gm PO ONCE PRN PRN Reason: BG < 60mg/dl Last Admin: 03/21/18 15:23 Dose: 4 gm Guaifenesin (Robitussin -) 10 ml PO Q6H PRN PRN Reason: COUGH Last Admin: 03/21/18 11:02 Dose: 10 ml Morphine Sulfate (Morphine Sulfate) 1 mg IVPUSH Q6H PRN PRN Reason: PAIN LEVEL 7 - 10 Last Admin: 03/19/18 21:53 Dose: 1 mg Pantoprazole Sodium (Protonix -) 40 mg PO DAILY [facility] Last Admin: 03/22/18 09:10 Dose: 40 mg Sertraline HCl (Zoloft -) 50 mg PO DAILY [facility] Last Admin: 03/22/18 09:10 Dose: 50 mg Tamsulosin HCl (Flomax -) 0.4 mg PO DAILY@0830 [facility] Last Admin: 03/22/18 09:10 Dose: 0.4 mg A/P Incarcerated Hernia Right Pleural Effusion h/o Breast Ca Acute on Chronic Renal Failure LV Systolic Dysfunction CAD Atrial Fibrillation/AV block s/p PPM Mitral Regurgitation HTN DM - inhaled bronchodilators - O2 to keep SpO2 >90% - hold anticoagulation - right sided thoracentesis when INR tolerates
--- NOTE | 2018-03-22 12:58 | PN ---
Progress Note (short form) - Note Progress Note: coughing+ not SOB no abd pain tolerating diet Vital Signs - 24 hr 03/21/18 03/21/18 03/21/18 15:28 21:00 22:00 Temperature 98.0 F 97.6 F Pulse Rate 68 67 Respiratory 18 20 20 Rate Blood Pressure 101/62 95/62 O2 Sat by Pulse 96 Oximetry (%) 03/22/18 03/22/18 03/22/18 02:00 06:00 09:12 Temperature 97.3 F L 98.0 F 97.3 F L Pulse Rate 63 90 92 H Respiratory 20 20 20 Rate Blood Pressure 104/57 L 101/49 L 104/72 O2 Sat by Pulse Oximetry (%) Current Medications Generic Name Dose Route Start Last Admin Trade Name Freq PRN Reason Stop Dose Admin Albuterol/Ipratropium 1 amp 03/19/18 17:38 03/20/18 21:45 Duoneb - NEB 1 amp Q6H PRN Administration SHORTNESS OF BREATH Carvedilol 25 mg 03/19/18 22:00 03/22/18 09:10 Coreg - PO 25 mg BID ALEX Administration Dextrose 4 gm 03/19/18 23:22 03/21/18 15:23 Glucose Tablet - PO 4 gm ONCE PRN Administration BG < 60mg/dl Guaifenesin 10 ml 03/18/18 18:32 03/21/18 11:02 Robitussin - PO 10 ml Q6H PRN Administration COUGH Morphine Sulfate 1 mg 03/19/18 18:04 03/19/18 21:53 Morphine Sulfate IVPUSH 1 mg Q6H PRN Administration PAIN LEVEL 7 - 10 Pantoprazole Sodium 40 mg 03/20/18 10:00 03/22/18 09:10 Protonix - PO 40 mg DAILY ALEX Administration Sertraline HCl 50 mg 03/20/18 10:00 03/22/18 09:10 Zoloft - PO 50 mg DAILY ALEX Administration Tamsulosin HCl 0.4 mg 03/20/18 08:30 03/22/18 09:10 Flomax - PO 0.4 mg DAILY@0830 ALEX Administration Laboratory Results - last 24 hr 03/21/18 03/22/18 03/22/18 15:18 03:59 06:29 WBC RBC Hgb Hct MCV MCH MCHC RDW Plt Count MPV Absolute Neuts (auto) Neutrophils % Neutrophils % (Manual) Band Neutrophils % Lymphocytes % Lymphocytes % (Manual) Monocytes % Monocytes % (Manual) Eosinophils % Eosinophils % (Manual) Basophils % Basophils % (Manual) Myelocytes % (Man) Promyelocytes % (Man) Blast Cells % (Manual) Nucleated RBC % Metamyelocytes Hypochromia Platelet Estimate Polychromasia Poikilocytosis Anisocytosis Microcytosis Macrocytosis PT with INR INR Sodium Potassium Chloride Carbon Dioxide Anion Gap BUN Creatinine Creat Clearance w eGFR POC Glucometer 60 61 77 Random Glucose Calcium Total Bilirubin AST ALT Alkaline Phosphatase Total Protein Albumin 03/22/18 03/22/18 03/22/18 06:45 06:45 06:45 WBC 8.3 RBC 3.02 L Hgb 9.7 L Hct 29.3 L MCV 97.0 H MCH 32.1 MCHC 33.1 RDW 15.9 Plt Count 159 D MPV 8.7 Absolute Neuts (auto) 6.7 Neutrophils % 81.1 D Neutrophils % (Manual) 80.0 D Band Neutrophils % 0.0 Lymphocytes % 8.9 D Lymphocytes % (Manual) 4.0 L D Monocytes % 8.8 Monocytes % (Manual) 14 H Eosinophils % 1.1 D Eosinophils % (Manual) 0.0 D Basophils % 0.1 Basophils % (Manual) 0.0 Myelocytes % (Man) 0 D Promyelocytes % (Man) 0 Blast Cells % (Manual) 0 Nucleated RBC % 0 Metamyelocytes 1 D Hypochromia 0 Platelet Estimate Normal Polychromasia 1+ Poikilocytosis 0 Anisocytosis 1+ Microcytosis 0 Macrocytosis 1+ PT with INR 61.20 H INR 5.10 H* Sodium 132 L Potassium 5.0 Chloride 98 Carbon Dioxide 29 Anion Gap 5 L BUN 47 H Creatinine 2.6 H Creat Clearance w eGFR 23.81 POC Glucometer Random Glucose 70 L Calcium 6.9 L* Total Bilirubin 0.8 AST 34 ALT 57 Alkaline Phosphatase 113 Total Protein 5.3 L Albumin 2.2 L Physical Examination Constitutional: Yes: No Distress, comfortable Cardiovascular: Yes: Regular Rate and Rhythm Respiratory: Yes: Diminished ++ Gastrointestinal: Yes: soft/ hernia + bs present, NT Edema: No Neuro- a0x3 a/p stable dc iv fluids INR decreasing monitor for hypoglycemia continue with meds Cardiology and surgical eval noted pt does not want any surgical interventions for hernia thoracentesis when INR permits Problem List - Problems (1) Incarcerated hernia Code(s): K46.0 - UNSP ABDOMINAL HERNIA WITH OBSTRUCTION, WITHOUT GANGRENE (2) Abnormal INR Code(s): R79.1 - ABNORMAL COAGULATION PROFILE (3) Afib Code(s): I48.91 - UNSPECIFIED ATRIAL FIBRILLATION Qualifiers: Atrial fibrillation type: persistent Qualified Code(s): I48.1 - Persistent atrial fibrillation (4) Anemia Code(s): D64.9 - ANEMIA, UNSPECIFIED Qualifiers: Anemia type: unspecified type Qualified Code(s): D64.9 - Anemia, unspecified (5) Anticoagulated on Coumadin Code(s): Z79.01 - 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
--- NOTE | 2018-03-22 13:28 | PN ---
Progress Note, Physician Chief Complaint: Events noted No chest pain or SOB History of Present Illness: Patient was seen and examined. Chart was reviewed - Current Medication List Current Medications: Active Medications Albuterol/Ipratropium (Duoneb -) 1 amp NEB Q6H PRN PRN Reason: SHORTNESS OF BREATH Last Admin: 03/20/18 21:45 Dose: 1 amp Carvedilol (Coreg -) 25 mg PO BID [facility] Last Admin: 03/22/18 09:10 Dose: 25 mg Dextrose (Glucose Tablet -) 4 gm PO ONCE PRN PRN Reason: BG < 60mg/dl Last Admin: 03/21/18 15:23 Dose: 4 gm Guaifenesin (Robitussin -) 10 ml PO Q6H PRN PRN Reason: COUGH Last Admin: 03/21/18 11:02 Dose: 10 ml Morphine Sulfate (Morphine Sulfate) 1 mg IVPUSH Q6H PRN PRN Reason: PAIN LEVEL 7 - 10 Last Admin: 03/19/18 21:53 Dose: 1 mg Pantoprazole Sodium (Protonix -) 40 mg PO DAILY [facility] Last Admin: 03/22/18 09:10 Dose: 40 mg Sertraline HCl (Zoloft -) 50 mg PO DAILY [facility] Last Admin: 03/22/18 09:10 Dose: 50 mg Tamsulosin HCl (Flomax -) 0.4 mg PO DAILY@0830 [facility] Last Admin: 03/22/18 09:10 Dose: 0.4 mg - Objective Vital Signs: Vital Signs Temperature 97.3 F L 03/22/18 09:12 Pulse Rate 92 H 03/22/18 09:12 Respiratory Rate 20 03/22/18 09:12 Blood Pressure 104/72 03/22/18 09:12 O2 Sat by Pulse Oximetry (%) 96 03/21/18 21:00 Neck: Yes: Supple Cardiovascular: Yes: Regular Rate and Rhythm, S1, S2 Respiratory: Yes: Diminished Gastrointestinal: Yes: Normal Bowel Sounds, Soft. No: Tenderness Edema: No Labs: CBC, BMP 03/22/18 06:45 03/22/18 06:45 INR, PTT INR 5.10 (0.83-1.09) H* 03/22/18 06:45 Problem List - Problems (1) Incarcerated hernia Code(s): K46.0 - UNSP ABDOMINAL HERNIA WITH OBSTRUCTION, WITHOUT GANGRENE (2) Acute on chronic congestive heart failure Code(s): I50.9 - HEART FAILURE, UNSPECIFIED (3) Acute on chronic renal failure Code(s): N17.9 - ACUTE KIDNEY FAILURE, UNSPECIFIED; N18.9 - CHRONIC KIDNEY DISEASE, UNSPECIFIED Qualifiers: Chronic kidney disease stage: stage 3 (moderate) (4) Afib Code(s): I48.91 - UNSPECIFIED ATRIAL FIBRILLATION Qualifiers: Atrial fibrillation type: persistent Qualified Code(s): I48.1 - Persistent atrial fibrillation (5) Anemia Code(s): D64.9 - ANEMIA, UNSPECIFIED Qualifiers: Anemia type: unspecified type Qualified Code(s): D64.9 - Anemia, unspecified (6) Anticoagulated on Coumadin Code(s): Z79.01 - STATISTICIAN MATHEMATICAL (CURRENT) USE OF ANTICOAGULANTS (7) Chronic kidney disease (CKD) Code(s): N18.9 - CHRONIC KIDNEY DISEASE, UNSPECIFIED Qualifiers: Chronic kidney disease stage: unspecified stage Qualified Code(s): N18.9 - Chronic kidney disease, unspecified (8) Coronary artery disease Code(s): I25.10 - ATHSCL HEART DISEASE OF [place] CORONARY ARTERY W/O ANG PCTRS Qualifiers: Coronary Disease-Associated Artery/Lesion type: [place] artery [place] vs. transplanted heart: [place] heart Associated angina: without angina Qualified Code(s): I25.10 - Atherosclerotic heart disease of [place] coronary artery without angina pectoris (9) HTN (hypertension) Code(s): I10 - ESSENTIAL (PRIMARY) HYPERTENSION Qualifiers: Hypertension type: essential hypertension Qualified Code(s): I10 - Essential (primary) hypertension (10) Hyperlipidemia Code(s): E78.5 - HYPERLIPIDEMIA, UNSPECIFIED Qualifiers: Hyperlipidemia type: pure hypercholesterolemia Qualified Code(s): E78.00 - Pure hypercholesterolemia, unspecified; E78.0 - Pure hypercholesterolemia (11) Pacemaker Code(s): Z95.0 - PRESENCE OF CARDIAC PACEMAKER (12) Pleural effusion Code(s): J90 - PLEURAL EFFUSION, NOT ELSEWHERE CLASSIFIED (13) Pulmonary hypertension Code(s): I27.2 - OTHER SECONDARY PULMONARY HYPERTENSION * DO NOT USE * (14) Sick sinus syndrome Code(s): I49.5 - SICK SINUS SYNDROME (15) Status post coronary artery stent placement Code(s): Z95.5 - PRESENCE OF CORONARY ANGIOPLASTY IMPLANT AND GRAFT (16) Supratherapeutic INR Code(s): R79.1 - ABNORMAL COAGULATION PROFILE (17) Systolic and diastolic CHF, acute on chronic Code(s): I50.43 - ACUTE ON CHRONIC COMBINED SYSTOLIC AND DIASTOLIC HRT FAIL (18) Type 2 diabetes mellitus Code(s): E11.9 - TYPE 2 DIABETES MELLITUS WITHOUT COMPLICATIONS Qualifiers: Diabetes mellitus complication status: with kidney complications Diabetes mellitus complication detail: with chronic kidney disease Chronic kidney disease stage: stage 3 (moderate) Assessment/Plan 1. Incarcerated spigelian hernia without strangulation, for conservative management considering patient's co-morbidities 2. Right pleural effusion with underlying history of breast carcinoma post mastectomy post chemotherapy, prior history of thoracentesis 3. 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 CAD post PCI/stent angina pectoris 5. Persistent/chronic atrial fibrillation on A/C, [id number] score of 6, supratherapeutic INR 6. AV block post PPM 7. Mitral valve and tricuspid valve regurgitation 8. HTN/HCVD 9. DM 10. Hypercholesterolemia 11. Acute on CKD with hyperkalemia PLAN: 1. Continue to withhold anticoagulation therapy/Coumadin in view of the above- noted supratherapeutic INR 2. Continue Carvedilol 25 mg BID as tolerated 3. Initiate Entresto once Acute on CKD with hyperkalemia resolves 4. Consider repeat right thoracentesis once INR is acceptable/appropriate Further plans are to follow Chente Gasca MD
[2018-03-22] MEDS: ALBUTEROL SO4 2.5/IPRATROPIUM 0.5 INH SOL 3 ML VIAL.NEB. NEB PRN ×2 (19:14→21:32)
[2018-03-22] MEDS ORDERED: PT OWN MED DRAWER 7, Y5N ONE (22:19)
[2018-03-22] MEDS: DEXTROSE 4 GM TAB.CHEW PO PRN (22:19)
[2018-03-23] MEDS: DEXTROSE 4 GM TAB.CHEW PO PRN (03:09)
[2018-03-23] MEDS: ALBUTEROL SO4 2.5/IPRATROPIUM 0.5 INH SOL 3 ML VIAL.NEB. NEB PRN ×3 (04:00→20:42)
[2018-03-23] MEDS ORDERED: PT OWN MED DRAWER 7, Y5N ONE (07:48)
[2018-03-23 08:29] LABS: INR 3.16 (0.83-1.09); PROTHROMBIN TIME (PATIENT) 37.7 SEC (9.7-13.0)
[2018-03-23] MEDS: TAMSULOSIN HCL 0.4 MG CAP PO SCH (09:25)
[2018-03-23] MEDS: SERTRALINE HCL 50 MG TABLET (FP) PO SCH (09:25)
[2018-03-23] MEDS: PANTOPRAZOLE 40 MG TABLET (FP) PO SCH (09:26)
[2018-03-23] MEDS: CARVEDILOL 25 MG TABLET (FP) PO SCH ×2 (09:26→21:56)
--- NOTE | 2018-03-23 11:17 | PN ---
Progress Note (short form) - Note Progress Note: coughing+ not SOB no abd pain appears to be weak Vital Signs - 24 hr 03/22/18 03/22/18 03/23/18 21:00 22:00 02:00 Temperature 97.6 F 97.8 F Pulse Rate 74 73 Respiratory 21 H 21 H 20 Rate Blood Pressure 121/62 111/56 L O2 Sat by Pulse 96 Oximetry (%) 03/23/18 03/23/18 03/23/18 06:00 09:00 09:04 Temperature 97.3 F L 97.5 F L Pulse Rate 70 65 Respiratory 21 H 20 20 Rate Blood Pressure 104/57 L 110/60 O2 Sat by Pulse 96 Oximetry (%) Current Medications Generic Name Dose Route Start Last Admin Trade Name Freq PRN Reason Stop Dose Admin Albuterol/Ipratropium 1 amp 03/19/18 17:38 03/23/18 11:39 Duoneb - NEB 1 amp Q6H PRN Administration SHORTNESS OF BREATH Carvedilol 25 mg 03/19/18 22:00 03/23/18 09:26 Coreg - PO 25 mg BID ALEX Administration Dextrose 4 gm 03/19/18 23:22 03/23/18 03:09 Glucose Tablet - PO 4 gm ONCE PRN Administration BG < 60mg/dl Guaifenesin 10 ml 03/18/18 18:32 03/21/18 11:02 Robitussin - PO 10 ml Q6H PRN Administration COUGH Pantoprazole Sodium 40 mg 03/20/18 10:00 03/23/18 09:26 Protonix - PO 40 mg DAILY ALEX Administration Polyethylene Glycol 17 gm 03/23/18 11:30 03/23/18 12:33 Miralax (For Daily Use) - PO 17 grams BID ALEX Administration Senna 2 tab 03/23/18 11:16 Senna - PO HS PRN CONSTIPATION Sertraline HCl 50 mg 03/20/18 10:00 03/23/18 09:25 Zoloft - PO 50 mg DAILY ALEX Administration Tamsulosin HCl 0.4 mg 03/20/18 08:30 03/23/18 09:25 Flomax - PO 0.4 mg DAILY@0830 ALEX Administration Laboratory Results - last 24 hr 03/19/18 03/19/18 03/19/18 11:11 15:03 17:21 PT with INR INR POC Glucometer 75 75 63 03/19/18 03/19/18 03/20/18 18:52 22:40 00:25 PT with INR INR POC Glucometer 84 56 99 03/20/18 03/20/18 03/20/18 04:21 05:25 10:07 PT with INR INR POC Glucometer 68 160 116 03/20/18 03/21/18 03/21/18 23:05 02:03 11:55 PT with INR INR POC Glucometer 87 54 55 03/21/18 03/21/18 03/22/18 19:28 22:44 11:20 PT with INR INR POC Glucometer 84 80 73 03/22/18 03/22/18 03/22/18 15:30 18:46 22:17 PT with INR INR POC Glucometer 76 73 55 03/23/18 03/23/18 03/23/18 03:06 06:30 06:30 PT with INR 37.70 H INR 3.16 H POC Glucometer 52 68 03/23/18 03/23/18 11:10 15:18 PT with INR INR POC Glucometer 71 82 Physical Examination Constitutional: Yes: No Distress, comfortable Cardiovascular: Yes: Regular Rate and Rhythm Respiratory: Yes: Diminished ++ Gastrointestinal: Yes: soft/ hernia + bs present, NT Edema: No Neuro- a0x3 a/p stable dc iv fluids nebs prn INR decreasing monitor for hypoglycemia continue with meds Cardiology and surgical eval noted pt does not want any surgical interventions for hernia thoracentesis when INR permits Problem List - Problems (1) Incarcerated hernia Code(s): K46.0 - UNSP ABDOMINAL HERNIA WITH OBSTRUCTION, WITHOUT GANGRENE (2) Abnormal INR Code(s): R79.1 - ABNORMAL COAGULATION PROFILE (3) Afib Code(s): I48.91 - UNSPECIFIED ATRIAL FIBRILLATION Qualifiers: Atrial fibrillation type: persistent Qualified Code(s): I48.1 - Persistent atrial fibrillation (4) Anemia Code(s): D64.9 - ANEMIA, UNSPECIFIED Qualifiers: Anemia type: unspecified type Qualified Code(s): D64.9 - Anemia, unspecified (5) Anticoagulated on Coumadin Code(s): Z79.01 - GROUP HOME (CURRENT) USE OF ANTICOAGULANTS (6) Breast cancer in male Code(s): C50.929 - MALIGNANT NEOPLASM OF UNSP SITE OF UNSPECIFIED MALE BREAST (7) Chronic kidney disease (CKD) Code(s): N18.9 - CHRONIC KIDNEY DISEASE, UNSPECIFIED Qualifiers: Chronic kidney disease stage: unspecified stage Qualified Code(s): N18.9 - Chronic kidney disease, unspecified
[2018-03-23] MEDS: POLYETHYLENE GLYCOL 3350 119 GM BTL PO SCH ×2 (12:33→21:56)
--- NOTE | 2018-03-23 15:31 | PN ---
Progress Note, Physician History of Present Illness: pulmonary awake,comfortable,-resp distress,+ moist cough,-sputum - Current Medication List Current Medications: Active Medications Albuterol/Ipratropium (Duoneb -) 1 amp NEB Q6H PRN PRN Reason: SHORTNESS OF BREATH Last Admin: 03/23/18 11:39 Dose: 1 amp Carvedilol (Coreg -) 25 mg PO BID [facility] Last Admin: 03/23/18 09:26 Dose: 25 mg Dextrose (Glucose Tablet -) 4 gm PO ONCE PRN PRN Reason: BG < 60mg/dl Last Admin: 03/23/18 03:09 Dose: 4 gm Guaifenesin (Robitussin -) 10 ml PO Q6H PRN PRN Reason: COUGH Last Admin: 03/21/18 11:02 Dose: 10 ml Pantoprazole Sodium (Protonix -) 40 mg PO DAILY [facility] Last Admin: 03/23/18 09:26 Dose: 40 mg Polyethylene Glycol (Miralax (For Daily Use) -) 17 gm PO BID [facility] Last Admin: 03/23/18 12:33 Dose: 17 grams Senna (Senna -) 2 tab PO HS PRN PRN Reason: CONSTIPATION Sertraline HCl (Zoloft -) 50 mg PO DAILY [facility] Last Admin: 03/23/18 09:25 Dose: 50 mg Tamsulosin HCl (Flomax -) 0.4 mg PO DAILY@0830 [facility] Last Admin: 03/23/18 09:25 Dose: 0.4 mg - Objective Vital Signs: Vital Signs Temperature 97.5 F L 03/23/18 09:04 Pulse Rate 65 03/23/18 09:04 Respiratory Rate 20 03/23/18 09:04 Blood Pressure 110/60 03/23/18 09:04 O2 Sat by Pulse Oximetry (%) 96 03/23/18 09:00 Constitutional: Yes: Calm, Thin Eyes: Yes: WNL HENT: Yes: WNL Neck: Yes: WNL Cardiovascular: Yes: Pulse Irregular, S1, S2 Respiratory: Yes: Rhonchi (scattered roseann rhonchi) Gastrointestinal: Yes: Normal Bowel Sounds, Soft Extremities: Yes: WNL Edema: No Assessment/Plan Problem List - Problems (1) Incarcerated hernia Code(s): K46.0 - UNSP ABDOMINAL HERNIA WITH OBSTRUCTION, WITHOUT GANGRENE NOT A SURGICAL CANDIDATE (2) Acute on chronic renal failure Code(s): N17.9 - ACUTE KIDNEY FAILURE, UNSPECIFIED; N18.9 - CHRONIC KIDNEY DISEASE, UNSPECIFIED Qualifiers: Chronic kidney disease stage: stage 3 (moderate) (3) Afib Code(s): I48.91 - UNSPECIFIED ATRIAL FIBRILLATION Qualifiers: Atrial fibrillation type: persistent Qualified Code(s): I48.1 - Persistent atrial fibrillation (4) Anemia Code(s): D64.9 - ANEMIA, UNSPECIFIED Qualifiers: Anemia type: unspecified type Qualified Code(s): D64.9 - Anemia, unspecified (5) Anticoagulated on Coumadin Code(s): Z79.01 - 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 transplanted heart: [place] heart Associated angina: without angina Qualified Code(s): I25.10 - Atherosclerotic heart disease of [place] coronary artery without angina pectoris (7) HTN (hypertension) Code(s): I10 - ESSENTIAL (PRIMARY) HYPERTENSION Qualifiers: Hypertension type: essential hypertension Qualified Code(s): I10 - Essential (primary) hypertension (8) Hyperlipidemia Code(s): E78.5 - HYPERLIPIDEMIA, UNSPECIFIED Qualifiers: Hyperlipidemia type: pure hypercholesterolemia Qualified Code(s): E78.00 - Pure hypercholesterolemia, unspecified; E78.0 - Pure hypercholesterolemia (9) Pacemaker Code(s): Z95.0 - PRESENCE OF CARDIAC PACEMAKER (10) Pleural effusion, right Code(s): J90 - PLEURAL EFFUSION, NOT ELSEWHERE CLASSIFIED (11) Pulmonary hypertension Code(s): I27.2 - OTHER SECONDARY PULMONARY HYPERTENSION * DO NOT USE * (12) Sick sinus syndrome Code(s): I49.5 - SICK SINUS SYNDROME (13) Status post coronary artery stent placement Code(s): Z95.5 - PRESENCE OF CORONARY ANGIOPLASTY IMPLANT AND GRAFT (14) Supratherapeutic INR Code(s): R79.1 - ABNORMAL COAGULATION PROFILE (15) Systolic and diastolic CHF, acute on chronic Code(s): I50.43 - ACUTE ON CHRONIC COMBINED SYSTOLIC AND DIASTOLIC HRT FAIL (16) Type 2 diabetes mellitus Code(s): E11.9 - TYPE 2 DIABETES MELLITUS WITHOUT COMPLICATIONS Qualifiers: Diabetes mellitus complication status: with kidney complications Diabetes mellitus complication detail: with chronic kidney disease Chronic kidney disease stage: stage 3 (moderate) A/P Incarcerated Hernia Right Pleural Effusion h/o Breast Ca Acute on Chronic Renal Failure LV Systolic Dysfunction CAD Atrial Fibrillation/AV block s/p PPM Mitral Regurgitation HTN DM Supratherapeutic INR - inhaled bronchodilators - O2 to keep SpO2 >90% - anticoagulation on hold - right sided thoracentesis when INR corrected DR AKINS
[2018-03-23] MEDS: guaiFENesin 200 MG/10 ML 10 ML UNIT-DOSE CUPS PO PRN (17:11)
[2018-03-24] MEDS ORDERED: PT OWN MED DRAWER 7, Y5N ONE ×3 (03:04→10:07)
[2018-03-24] MEDS: DEXTROSE 4 GM TAB.CHEW PO PRN (03:05)
[2018-03-24] MEDS: ALBUTEROL SO4 2.5/IPRATROPIUM 0.5 INH SOL 3 ML VIAL.NEB. NEB PRN ×3 (06:29→21:06)
[2018-03-24 07:39] LABS: HEMATOCRIT 29.4 % (35.4-49); HEMOGLOBIN 9.8 GM/dL (11.7-16.9); MCH 32.2 pg (25.7-33.7); MCHC 33.3 g/dl (32.0-35.9); MEAN CELL VOLUME 96.5 fl (80-96); PLATELET COUNT 142 K/MM3 (134-434); RBC 3.05 M/mm3 (4.00-5.60); RDW 15.9 % (11.9-15.9); WHITE BLOOD COUNT 8.1 K/mm3 (4.0-10.0)
[2018-03-24 07:50] LABS: INR 2.5 (0.83-1.09); PROTHROMBIN TIME (PATIENT) 29.8 SEC (9.7-13.0)
[2018-03-24 08:00] LABS: ANION GAP 5 MMOL/L (8-16); BLOOD UREA NITROGEN 44 mg/dL (7-18); CALCIUM 7.2 mg/dL (8.5-10.1); CHLORIDE 102 mmol/L (98-107); CO2 30 mmol/L (21-32); CREATININE 2.3 mg/dL (0.55-1.3); GLUCOSE,RANDOM 59 mg/dL (74-106); POTASSIUM 4.5 mmol/L (3.5-5.1); SODIUM 137 mmol/L (136-145)
[2018-03-24] MEDS: PANTOPRAZOLE 40 MG TABLET (FP) PO SCH (10:13)
[2018-03-24] MEDS: SERTRALINE HCL 50 MG TABLET (FP) PO SCH (10:13)
[2018-03-24] MEDS: TAMSULOSIN HCL 0.4 MG CAP PO SCH (10:13)
[2018-03-24] MEDS: CARVEDILOL 25 MG TABLET (FP) PO SCH ×2 (10:13→21:46)
[2018-03-24] MEDS: POLYETHYLENE GLYCOL 3350 119 GM BTL PO SCH ×2 (10:13→21:45)
--- NOTE | 2018-03-24 11:33 | PN ---
Progress Note (short form) - Note Progress Note: PULMONARY Denies shortness of breath but with persistent cough. Vital Signs Period Temp Pulse Resp BP Sys/Soria Pulse Ox Last 24 Hr 97.4 F-98.4 F 65-78 18-20 96-118/52-69 Gen: NAD at rest Heart: RRR Lung: scattered rhonchi Abd: soft, nontender Ext: no edema CBC, BMP 03/24/18 06:20 03/24/18 06:20 Active Medications Albuterol/Ipratropium (Duoneb -) 1 amp NEB Q6H PRN PRN Reason: SHORTNESS OF BREATH Last Admin: 03/24/18 06:29 Dose: 1 amp Carvedilol (Coreg -) 25 mg PO BID [facility] Last Admin: 03/24/18 10:13 Dose: 25 mg Dextrose (Glucose Tablet -) 4 gm PO ONCE PRN PRN Reason: BG < 60mg/dl Last Admin: 03/24/18 03:05 Dose: 4 gm Guaifenesin (Robitussin -) 10 ml PO Q6H PRN PRN Reason: COUGH Last Admin: 03/23/18 17:11 Dose: 10 ml Pantoprazole Sodium (Protonix -) 40 mg PO DAILY [facility] Last Admin: 03/24/18 10:13 Dose: 40 mg Polyethylene Glycol (Miralax (For Daily Use) -) 17 gm PO BID [facility] Last Admin: 03/24/18 10:13 Dose: 17 grams Senna (Senna -) 2 tab PO HS PRN PRN Reason: CONSTIPATION Sertraline HCl (Zoloft -) 50 mg PO DAILY [facility] Last Admin: 03/24/18 10:13 Dose: 50 mg Tamsulosin HCl (Flomax -) 0.4 mg PO DAILY@0830 [facility] Last Admin: 03/24/18 10:13 Dose: 0.4 mg A/P Incarcerated Hernia Right Pleural Effusion h/o Breast Ca Acute on Chronic Renal Failure LV Systolic Dysfunction CAD Atrial Fibrillation/AV block s/p PPM Mitral Regurgitation HTN DM - inhaled bronchodilators - O2 to keep SpO2 >90% - hold anticoagulation - right sided thoracentesis when INR allows
--- NOTE | 2018-03-24 11:48 | PN ---
Progress Note (short form) - Note Progress Note: coughing+ not SOB no abd pain Vital Signs - 24 hr 03/23/18 03/23/18 03/24/18 18:40 22:00 02:00 Temperature 97.4 F L 97.9 F Pulse Rate 74 74 65 Respiratory 19 20 18 Rate Blood Pressure 118/69 96/60 106/65 03/24/18 03/24/18 06:00 09:23 Temperature 98.4 F 97.7 F Pulse Rate 78 72 Respiratory 18 18 Rate Blood Pressure 107/52 L 114/67 Current Medications Generic Name Dose Route Start Last Admin Trade Name Freq PRN Reason Stop Dose Admin Albuterol/Ipratropium 1 amp 03/19/18 17:38 03/24/18 06:29 Duoneb - NEB 1 amp Q6H PRN Administration SHORTNESS OF BREATH Carvedilol 25 mg 03/19/18 22:00 03/24/18 10:13 Coreg - PO 25 mg BID ALEX Administration Dextrose 4 gm 03/19/18 23:22 03/24/18 03:05 Glucose Tablet - PO 4 gm ONCE PRN Administration BG < 60mg/dl Guaifenesin 10 ml 03/18/18 18:32 03/23/18 17:11 Robitussin - PO 10 ml Q6H PRN Administration COUGH Pantoprazole Sodium 40 mg 03/20/18 10:00 03/24/18 10:13 Protonix - PO 40 mg DAILY ALEX Administration Polyethylene Glycol 17 gm 03/23/18 11:30 03/24/18 10:13 Miralax (For Daily Use) - PO 17 grams BID ALEX Administration Senna 2 tab 03/23/18 11:16 Senna - PO HS PRN CONSTIPATION Sertraline HCl 50 mg 03/20/18 10:00 03/24/18 10:13 Zoloft - PO 50 mg DAILY ALEX Administration Tamsulosin HCl 0.4 mg 03/20/18 08:30 03/24/18 10:13 Flomax - PO 0.4 mg DAILY@0830 ALEX Administration Laboratory Results - last 24 hr 03/23/18 03/23/18 03/23/18 15:18 19:19 22:56 WBC RBC Hgb Hct MCV MCH MCHC RDW Plt Count MPV PT with INR INR Sodium Potassium Chloride Carbon Dioxide Anion Gap BUN Creatinine Creat Clearance w eGFR POC Glucometer 82 85 75 Random Glucose Calcium 03/24/18 03/24/18 03/24/18 02:54 06:09 06:20 WBC 8.1 RBC 3.05 L Hgb 9.8 L Hct 29.4 L MCV 96.5 H MCH 32.2 MCHC 33.3 RDW 15.9 Plt Count 142 MPV 8.0 PT with INR INR Sodium Potassium Chloride Carbon Dioxide Anion Gap BUN Creatinine Creat Clearance w eGFR POC Glucometer 59 81 Random Glucose Calcium 03/24/18 03/24/18 03/24/18 06:20 06:20 10:11 WBC RBC Hgb Hct MCV MCH MCHC RDW Plt Count MPV PT with INR 29.80 H INR 2.50 H Sodium 137 Potassium 4.5 Chloride 102 Carbon Dioxide 30 Anion Gap 5 L BUN 44 H Creatinine 2.3 H Creat Clearance w eGFR 27.43 POC Glucometer 67 Random Glucose 59 L Calcium 7.2 L Physical Examination rt eye -- slight erythema and increased lacrimation Constitutional: Yes: No Distress, comfortable Cardiovascular: Yes: Regular Rate and Rhythm Respiratory: Yes: Diminished ++ Gastrointestinal: Yes: soft/ hernia + bs present, NT Edema: No Neuro- a0x3 a/p stable not SOB no JVD dc iv fluids nebs prn INR decreasing will need INR to be 1.5 in order for him to undergo thoracentesis should be on Lovenox bridging if INR <2 monitor for hypoglycemia continue with meds Cardiology and surgical eval noted pt does not want any surgical interventions for hernia refusing eye drops Problem List - Problems (1) Incarcerated hernia Code(s): K46.0 - UNSP ABDOMINAL HERNIA WITH OBSTRUCTION, WITHOUT GANGRENE (2) Abnormal INR Code(s): R79.1 - ABNORMAL COAGULATION PROFILE (3) Afib Code(s): I48.91 - UNSPECIFIED ATRIAL FIBRILLATION Qualifiers: Atrial fibrillation type: persistent Qualified Code(s): I48.1 - Persistent atrial fibrillation (4) Anemia Code(s): D64.9 - ANEMIA, UNSPECIFIED Qualifiers: Anemia type: unspecified type Qualified Code(s): D64.9 - Anemia, unspecified (5) Anticoagulated on Coumadin Code(s): Z79.01 - SHELTER (CURRENT) USE OF ANTICOAGULANTS (6) Breast cancer in male Code(s): C50.929 - MALIGNANT NEOPLASM OF [facility] SITE OF UNSPECIFIED MALE BREAST (7) Chronic kidney disease (CKD) Code(s): N18.9 - CHRONIC KIDNEY DISEASE, UNSPECIFIED Qualifiers: Chronic kidney disease stage: unspecified stage Qualified Code(s): N18.9 - Chronic kidney disease, unspecified
--- NOTE | 2018-03-24 13:11 | PN ---
Progress Note, Physician History of Present Illness: Resting, dyspnea resolved, occ cough. - Current Medication List Current Medications: Active Medications Albuterol/Ipratropium (Duoneb -) 1 amp NEB Q6H PRN PRN Reason: SHORTNESS OF BREATH Last Admin: 03/24/18 06:29 Dose: 1 amp Carvedilol (Coreg -) 25 mg PO BID [facility] Last Admin: 03/24/18 10:13 Dose: 25 mg Dextrose (Glucose Tablet -) 4 gm PO ONCE PRN PRN Reason: BG < 60mg/dl Last Admin: 03/24/18 03:05 Dose: 4 gm Guaifenesin (Robitussin -) 10 ml PO Q6H PRN PRN Reason: COUGH Last Admin: 03/23/18 17:11 Dose: 10 ml Pantoprazole Sodium (Protonix -) 40 mg PO DAILY [facility] Last Admin: 03/24/18 10:13 Dose: 40 mg Polyethylene Glycol (Miralax (For Daily Use) -) 17 gm PO BID [facility] Last Admin: 03/24/18 10:13 Dose: 17 grams Senna (Senna -) 2 tab PO HS PRN PRN Reason: CONSTIPATION Sertraline HCl (Zoloft -) 50 mg PO DAILY [facility] Last Admin: 03/24/18 10:13 Dose: 50 mg Tamsulosin HCl (Flomax -) 0.4 mg PO DAILY@0830 [facility] Last Admin: 03/24/18 10:13 Dose: 0.4 mg - Objective Vital Signs: Vital Signs Temperature 97.7 F 03/24/18 09:23 Pulse Rate 72 03/24/18 09:23 Respiratory Rate 18 03/24/18 09:23 Blood Pressure 114/67 03/24/18 09:23 O2 Sat by Pulse Oximetry (%) 96 03/23/18 09:00 Constitutional: Yes: No Distress, Calm, Thin Neck: Yes: Supple Cardiovascular: Yes: Regular Rate and Rhythm Respiratory: Yes: Regular, Diminished Gastrointestinal: Yes: Normal Bowel Sounds, Soft, Hernia Edema: No Labs: CBC, BMP 03/24/18 06:20 03/24/18 06:20 INR, PTT INR 2.50 (0.83-1.09) H 03/24/18 06:20 Problem List - Problems (1) Incarcerated hernia Code(s): K46.0 - UNSP ABDOMINAL HERNIA WITH OBSTRUCTION, WITHOUT GANGRENE (2) Acute on chronic renal failure Code(s): N17.9 - ACUTE KIDNEY FAILURE, UNSPECIFIED; N18.9 - CHRONIC KIDNEY DISEASE, UNSPECIFIED Qualifiers: Chronic kidney disease stage: stage 3 (moderate) (3) Afib Code(s): I48.91 - UNSPECIFIED ATRIAL FIBRILLATION Qualifiers: Atrial fibrillation type: persistent Qualified Code(s): I48.1 - Persistent atrial fibrillation (4) Anemia Code(s): D64.9 - ANEMIA, UNSPECIFIED Qualifiers: Anemia type: unspecified type Qualified Code(s): D64.9 - Anemia, unspecified (5) Anticoagulated on Coumadin Code(s): Z79.01 - SUBASSEMBLIES WIRER (CURRENT) USE OF ANTICOAGULANTS (6) Coronary artery disease Code(s): I25.10 - ATHSCL HEART DISEASE OF [place] CORONARY ARTERY W/O ANG PCTRS Qualifiers: Coronary Disease-Associated Artery/Lesion type: [place] artery [place] vs. transplanted heart: [place] heart Associated angina: without angina Qualified Code(s): I25.10 - Atherosclerotic heart disease of [place] coronary artery without angina pectoris (7) HTN (hypertension) Code(s): I10 - ESSENTIAL (PRIMARY) HYPERTENSION Qualifiers: Hypertension type: essential hypertension Qualified Code(s): I10 - Essential (primary) hypertension (8) Hyperlipidemia Code(s): E78.5 - HYPERLIPIDEMIA, UNSPECIFIED Qualifiers: Hyperlipidemia type: pure hypercholesterolemia Qualified Code(s): E78.00 - Pure hypercholesterolemia, unspecified; E78.0 - Pure hypercholesterolemia (9) Pacemaker Code(s): Z95.0 - PRESENCE OF CARDIAC PACEMAKER (10) Pleural effusion, right Code(s): J90 - PLEURAL EFFUSION, NOT ELSEWHERE CLASSIFIED (11) Pulmonary hypertension Code(s): I27.2 - OTHER SECONDARY PULMONARY HYPERTENSION * DO NOT USE * (12) Sick sinus syndrome Code(s): I49.5 - SICK SINUS SYNDROME (13) Status post coronary artery stent placement Code(s): Z95.5 - PRESENCE OF CORONARY ANGIOPLASTY IMPLANT AND GRAFT (14) Systolic and diastolic CHF, acute on chronic Code(s): I50.43 - ACUTE ON CHRONIC COMBINED SYSTOLIC AND DIASTOLIC HRT FAIL (15) Type 2 diabetes mellitus Code(s): E11.9 - TYPE 2 DIABETES MELLITUS WITHOUT COMPLICATIONS Qualifiers: Diabetes mellitus complication status: with kidney complications Diabetes mellitus complication detail: with chronic kidney disease Chronic kidney disease stage: stage 3 (moderate) Assessment/Plan 02/09/2018 Echo: Normal LV size with severely decreased LV fxn, severe TR, severe pulm HTN, pacer in RV 1. Incarcerated spigelian hernia without strangulation, for conservative management considering patient's co-morbidities 2. Right pleural effusion with underlying history of breast carcinoma post mastectomy post chemotherapy, prior history of thoracentesis 3. 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 CAD post PCI/stent angina pectoris 5. Persistent/chronic atrial fibrillation on A/C, [id number] score of 6, therapeutic INR 6. AV block post PPM 7. Mitral valve and tricuspid valve regurgitation 8. HTN/HCVD 9. DM 10. Hypercholesterolemia 11. Acute on CKD with resolved hyperkalemia PLAN: 1. Continue to withhold anticoagulation therapy/Coumadin in view of the above- noted supratherapeutic INR 2. Continue Carvedilol 25 mg BID as tolerated 3. Initiate Entresto once Acute on CKD with hyperkalemia resolves 4. Consider repeat right thoracentesis once INR is acceptable/appropriate
[2018-03-25] MEDS ORDERED: INSULIN (NOVOLOG) ASPART 100 UNITS/ML 10ML VIAL ONE (06:26)
[2018-03-25 09:11] LABS: INR 1.94 (0.83-1.09); PROTHROMBIN TIME (PATIENT) 23.1 SEC (9.7-13.0)
--- NOTE | 2018-03-25 11:13 | PN ---
Progress Note, Physician History of Present Illness: Resting, dyspnea and cough resolved. - Current Medication List Current Medications: Active Medications Albuterol/Ipratropium (Duoneb -) 1 amp NEB Q6H PRN PRN Reason: SHORTNESS OF BREATH Last Admin: 03/24/18 21:06 Dose: 1 amp Carvedilol (Coreg -) 25 mg PO BID [facility] Last Admin: 03/24/18 21:46 Dose: 25 mg Dextrose (Glucose Tablet -) 4 gm PO ONCE PRN PRN Reason: BG < 60mg/dl Last Admin: 03/24/18 03:05 Dose: 4 gm Guaifenesin (Robitussin -) 10 ml PO Q6H PRN PRN Reason: COUGH Last Admin: 03/23/18 17:11 Dose: 10 ml Pantoprazole Sodium (Protonix -) 40 mg PO DAILY [facility] Last Admin: 03/24/18 10:13 Dose: 40 mg Polyethylene Glycol (Miralax (For Daily Use) -) 17 gm PO BID [facility] Last Admin: 03/24/18 21:45 Dose: 17 grams Senna (Senna -) 2 tab PO HS PRN PRN Reason: CONSTIPATION Sertraline HCl (Zoloft -) 50 mg PO DAILY [facility] Last Admin: 03/24/18 10:13 Dose: 50 mg Tamsulosin HCl (Flomax -) 0.4 mg PO DAILY@0830 [facility] Last Admin: 03/24/18 10:13 Dose: 0.4 mg - Objective Vital Signs: Vital Signs Temperature 98.1 F 03/25/18 06:00 Pulse Rate 73 03/25/18 09:07 Respiratory Rate 18 03/25/18 09:07 Blood Pressure 116/63 03/25/18 09:07 O2 Sat by Pulse Oximetry (%) 96 03/23/18 09:00 Constitutional: Yes: No Distress, Calm, Thin Neck: Yes: Supple Cardiovascular: Yes: Regular Rate and Rhythm Respiratory: Yes: Regular, Diminished Gastrointestinal: Yes: Soft, Hernia, Hypoactive Bowel Sounds Edema: No Labs: CBC, BMP 03/24/18 06:20 03/24/18 06:20 INR, PTT INR 1.94 (0.83-1.09) H 03/25/18 07:56 Problem List - Problems (1) Incarcerated hernia Code(s): K46.0 - UNSP ABDOMINAL HERNIA WITH OBSTRUCTION, WITHOUT GANGRENE (2) Acute on chronic renal failure Code(s): N17.9 - ACUTE KIDNEY FAILURE, UNSPECIFIED; N18.9 - CHRONIC KIDNEY DISEASE, UNSPECIFIED Qualifiers: Chronic kidney disease stage: stage 3 (moderate) (3) Afib Code(s): I48.91 - UNSPECIFIED ATRIAL FIBRILLATION Qualifiers: Atrial fibrillation type: persistent Qualified Code(s): I48.1 - Persistent atrial fibrillation (4) Anemia Code(s): D64.9 - ANEMIA, UNSPECIFIED Qualifiers: Anemia type: unspecified type Qualified Code(s): D64.9 - Anemia, unspecified (5) Anticoagulated on Coumadin Code(s): Z79.01 - FINISHER HOT STRIP (CURRENT) USE OF ANTICOAGULANTS (6) Coronary artery disease Code(s): I25.10 - ATHSCL HEART DISEASE OF [place] CORONARY ARTERY W/O ANG PCTRS Qualifiers: Coronary Disease-Associated Artery/Lesion type: [place] artery [place] vs. transplanted heart: [place] heart Associated angina: without angina Qualified Code(s): I25.10 - Atherosclerotic heart disease of [place] coronary artery without angina pectoris (7) HTN (hypertension) Code(s): I10 - ESSENTIAL (PRIMARY) HYPERTENSION Qualifiers: Hypertension type: essential hypertension Qualified Code(s): I10 - Essential (primary) hypertension (8) Hyperlipidemia Code(s): E78.5 - HYPERLIPIDEMIA, UNSPECIFIED Qualifiers: Hyperlipidemia type: pure hypercholesterolemia Qualified Code(s): E78.00 - Pure hypercholesterolemia, unspecified; E78.0 - Pure hypercholesterolemia (9) Pacemaker Code(s): Z95.0 - PRESENCE OF CARDIAC PACEMAKER (10) Pleural effusion, right Code(s): J90 - PLEURAL EFFUSION, NOT ELSEWHERE CLASSIFIED (11) Pulmonary hypertension Code(s): I27.2 - OTHER SECONDARY PULMONARY HYPERTENSION * DO NOT USE * (12) Sick sinus syndrome Code(s): I49.5 - SICK SINUS SYNDROME (13) Status post coronary artery stent placement Code(s): Z95.5 - PRESENCE OF CORONARY ANGIOPLASTY IMPLANT AND GRAFT (14) Systolic and diastolic CHF, acute on chronic Code(s): I50.43 - ACUTE ON CHRONIC COMBINED SYSTOLIC AND DIASTOLIC HRT FAIL (15) Type 2 diabetes mellitus Code(s): E11.9 - TYPE 2 DIABETES MELLITUS WITHOUT COMPLICATIONS Qualifiers: Diabetes mellitus complication status: with kidney complications Diabetes mellitus complication detail: with chronic kidney disease Chronic kidney disease stage: stage 3 (moderate) Assessment/Plan 02/09/2018 Echo: Normal LV size with severely decreased LV fxn, severe TR, severe pulm HTN, pacer in RV 1. Incarcerated spigelian hernia without strangulation, for conservative management considering patient's co-morbidities 2. Right pleural effusion with underlying history of breast carcinoma post mastectomy post chemotherapy, prior history of thoracentesis 3. 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 CAD post PCI/stent angina pectoris 5. Persistent/chronic atrial fibrillation on A/C, [id number] score of 6, subtherapeutic INR 6. AV block post PPM 7. Mitral valve and tricuspid valve regurgitation 8. HTN/HCVD 9. DM 10. Hypercholesterolemia 11. Acute on CKD with proteinuria and resolved hyperkalemia PLAN: 1. Continue to withhold anticoagulation therapy/Coumadin in view of planned right thoracentesis 2. Continue Carvedilol 25 mg BID as tolerated 3. Initiate Entresto once Acute on CKD with hyperkalemia resolves 4. Consider repeat right thoracentesis once INR is acceptable/appropriate
--- NOTE | 2018-03-25 11:33 | PN ---
Progress Note, Physician History of Present Illness: pulmonary awake,c/o sob,+ cough,-cp - Current Medication List Current Medications: Active Medications Albuterol/Ipratropium (Duoneb -) 1 amp NEB Q6H PRN PRN Reason: SHORTNESS OF BREATH Last Admin: 03/24/18 21:06 Dose: 1 amp Carvedilol (Coreg -) 25 mg PO BID [facility] Last Admin: 03/24/18 21:46 Dose: 25 mg Dextrose (Glucose Tablet -) 4 gm PO ONCE PRN PRN Reason: BG < 60mg/dl Last Admin: 03/24/18 03:05 Dose: 4 gm Guaifenesin (Robitussin -) 10 ml PO Q6H PRN PRN Reason: COUGH Last Admin: 03/23/18 17:11 Dose: 10 ml Pantoprazole Sodium (Protonix -) 40 mg PO DAILY [facility] Last Admin: 03/24/18 10:13 Dose: 40 mg Polyethylene Glycol (Miralax (For Daily Use) -) 17 gm PO BID [facility] Last Admin: 03/24/18 21:45 Dose: 17 grams Senna (Senna -) 2 tab PO HS PRN PRN Reason: CONSTIPATION Sertraline HCl (Zoloft -) 50 mg PO DAILY [facility] Last Admin: 03/24/18 10:13 Dose: 50 mg Tamsulosin HCl (Flomax -) 0.4 mg PO DAILY@0830 [facility] Last Admin: 03/24/18 10:13 Dose: 0.4 mg - Objective Vital Signs: Vital Signs Temperature 98.1 F 03/25/18 06:00 Pulse Rate 73 03/25/18 09:07 Respiratory Rate 18 03/25/18 09:07 Blood Pressure 116/63 03/25/18 09:07 O2 Sat by Pulse Oximetry (%) 96 03/23/18 09:00 Constitutional: Yes: Calm, Thin Eyes: Yes: WNL HENT: Yes: WNL Neck: Yes: WNL Cardiovascular: Yes: Pulse Irregular, S1 Respiratory: Yes: Diminished Gastrointestinal: Yes: Normal Bowel Sounds, Soft Extremities: Yes: WNL Edema: No Labs: CBC, BMP INR 1.94 (0.83-1.09) H 03/25/18 07:56 Assessment/Plan Problem List - Problems (1) Incarcerated hernia Code(s): K46.0 - UNSP ABDOMINAL HERNIA WITH OBSTRUCTION, WITHOUT GANGRENE NOT A SURGICAL CANDIDATE (2) Acute on chronic renal failure Code(s): N17.9 - ACUTE KIDNEY FAILURE, UNSPECIFIED; N18.9 - CHRONIC KIDNEY DISEASE, UNSPECIFIED Qualifiers: Chronic kidney disease stage: stage 3 (moderate) (3) Afib Code(s): I48.91 - UNSPECIFIED ATRIAL FIBRILLATION Qualifiers: Atrial fibrillation type: persistent Qualified Code(s): I48.1 - Persistent atrial fibrillation (4) Anemia Code(s): D64.9 - ANEMIA, UNSPECIFIED Qualifiers: Anemia type: unspecified type Qualified Code(s): D64.9 - Anemia, unspecified (5) Anticoagulated on Coumadin Code(s): Z79.01 - CUSTODIAL (CURRENT) USE OF ANTICOAGULANTS (6) Coronary artery disease Code(s): I25.10 - ATHSCL HEART DISEASE OF [place] CORONARY ARTERY W/O ANG PCTRS Qualifiers: Coronary Disease-Associated Artery/Lesion type: [place] artery [place] vs. transplanted heart: [place] heart Associated angina: without angina Qualified Code(s): I25.10 - Atherosclerotic heart disease of [place] coronary artery without angina pectoris (7) HTN (hypertension) Code(s): I10 - ESSENTIAL (PRIMARY) HYPERTENSION Qualifiers: Hypertension type: essential hypertension Qualified Code(s): I10 - Essential (primary) hypertension (8) Hyperlipidemia Code(s): E78.5 - HYPERLIPIDEMIA, UNSPECIFIED Qualifiers: Hyperlipidemia type: pure hypercholesterolemia Qualified Code(s): E78.00 - Pure hypercholesterolemia, unspecified; E78.0 - Pure hypercholesterolemia (9) Pacemaker Code(s): Z95.0 - PRESENCE OF CARDIAC PACEMAKER (10) Pleural effusion, right Code(s): J90 - PLEURAL EFFUSION, NOT ELSEWHERE CLASSIFIED (11) Pulmonary hypertension Code(s): I27.2 - OTHER SECONDARY PULMONARY HYPERTENSION * DO NOT USE * (12) Sick sinus syndrome Code(s): I49.5 - SICK SINUS SYNDROME (13) Status post coronary artery stent placement Code(s): Z95.5 - PRESENCE OF CORONARY ANGIOPLASTY IMPLANT AND GRAFT (14) Supratherapeutic INR Code(s): R79.1 - ABNORMAL COAGULATION PROFILE (15) Systolic and diastolic CHF, acute on chronic Code(s): I50.43 - ACUTE ON CHRONIC COMBINED SYSTOLIC AND DIASTOLIC HRT FAIL (16) Type 2 diabetes mellitus Code(s): E11.9 - TYPE 2 DIABETES MELLITUS WITHOUT COMPLICATIONS Qualifiers: Diabetes mellitus complication status: with kidney complications Diabetes mellitus complication detail: with chronic kidney disease Chronic kidney disease stage: stage 3 (moderate) A/P Incarcerated Hernia Right Pleural Effusion h/o Breast Ca Acute on Chronic Renal Failure LV Systolic Dysfunction CAD Atrial Fibrillation/AV block s/p PPM Mitral Regurgitation HTN DM Supratherapeutic INR improved - inhaled bronchodilators - O2 to keep SpO2 >90% - anticoagulation on hold - right sided thoracentesis when INR corrected DR AKINS
[2018-03-25] MEDS: DEXTROSE 4 GM TAB.CHEW PO PRN (11:43)
--- NOTE | 2018-03-25 12:00 | PN ---
Progress Note (short form) - Note Progress Note: pt seen/ examined awake/ comfortable going for thoracocentesis/ chest tube today discussed with nursing staff/ Dr. Oren espinoza cough + denies cp afebrile Vital Signs Temp 98.1 F 03/25/18 06:00 Pulse 73 03/25/18 09:07 Resp 18 03/25/18 09:07 BP 116/63 03/25/18 09:07 Pulse Ox 96 03/23/18 09:00 Intake & Output 03/24/18 03/24/18 03/25/18 11:59 23:59 11:59 Output Total 175 Balance -175 Output: Urine 175 Void 175 Other: Voiding Method Urinal Urinal Urinal # Unmeasured Voids Void 2 2 Bowel Movement No Body Mass Index (BMI) 19.9 Active Medications Albuterol/Ipratropium (Duoneb -) 1 amp NEB Q6H PRN PRN Reason: SHORTNESS OF BREATH Last Admin: 03/24/18 21:06 Dose: 1 amp Carvedilol (Coreg -) 25 mg PO BID [facility] Last Admin: 03/24/18 21:46 Dose: 25 mg Dextrose (Glucose Tablet -) 4 gm PO ONCE PRN PRN Reason: BG < 60mg/dl Last Admin: 03/25/18 11:43 Dose: 4 gm Guaifenesin (Robitussin -) 10 ml PO Q6H PRN PRN Reason: COUGH Last Admin: 03/23/18 17:11 Dose: 10 ml Pantoprazole Sodium (Protonix -) 40 mg PO DAILY [facility] Last Admin: 03/24/18 10:13 Dose: 40 mg Polyethylene Glycol (Miralax (For Daily Use) -) 17 gm PO BID [facility] Last Admin: 03/24/18 21:45 Dose: 17 grams Senna (Senna -) 2 tab PO HS PRN PRN Reason: CONSTIPATION Sertraline HCl (Zoloft -) 50 mg PO DAILY [facility] Last Admin: 03/24/18 10:13 Dose: 50 mg Tamsulosin HCl (Flomax -) 0.4 mg PO DAILY@0830 [facility] Last Admin: 03/24/18 10:13 Dose: 0.4 mg CBC, BMP 03/24/18 06:20 03/24/18 06:20 CMP Sodium 137 mmol/L (136-145) 03/24/18 06:20 Potassium 4.5 mmol/L (3.5-5.1) 03/24/18 06:20 Chloride 102 mmol/L (98-107) 03/24/18 06:20 Carbon Dioxide 30 mmol/L (21-32) 03/24/18 06:20 Anion Gap 5 MMOL/L (8-16) L 03/24/18 06:20 BUN 44 mg/dL (7-18) H 03/24/18 06:20 Creatinine 2.3 mg/dL (0.55-1.3) H 03/24/18 06:20 Creat Clearance w eGFR 27.43 (>60) 03/24/18 06:20 POC Glucometer 73 UNITS (80-120) 03/25/18 11:42 Random Glucose 59 mg/dL (74-106) L 03/24/18 06:20 Lactic Acid 1.9 mmol/L (0.4-2.0) 03/18/18 06:52 Calcium 7.2 mg/dL (8.5-10.1) L 03/24/18 06:20 Total Bilirubin 0.8 mg/dL (0.2-1) 03/22/18 06:45 AST 34 U/L (15-37) 03/22/18 06:45 ALT 57 U/L (13-61) 03/22/18 06:45 Alkaline Phosphatase 113 U/L (45-117) 03/22/18 06:45 Creatine Kinase 59 U/L (26-308) 03/18/18 11:23 Troponin I 0.02 ng/ml (0.00-0.05) 03/18/18 11:23 Total Protein 5.3 g/dl (6.4-8.2) L 03/22/18 06:45 Albumin 2.2 g/dl (3.4-5.0) L 03/22/18 06:45 INR, PTT INR 1.94 (0.83-1.09) H 03/25/18 07:56 Physical Examination Constitutional: Yes: No Distress, comfortable Cardiovascular: Yes: Regular Rate and Rhythm Respiratory: Yes: Diminished ++ at bases Gastrointestinal: Yes: soft/ hernia + bs present, non tender . Edema: No a/p stable nebs prn coumadin on hold continue with meds will follow Problem List - Problems (1) Incarcerated hernia Code(s): K46.0 - UNSP ABDOMINAL HERNIA WITH OBSTRUCTION, WITHOUT GANGRENE (2) Abnormal INR Code(s): R79.1 - ABNORMAL COAGULATION PROFILE (3) Afib Code(s): I48.91 - UNSPECIFIED ATRIAL FIBRILLATION Qualifiers: Atrial fibrillation type: persistent Qualified Code(s): I48.1 - Persistent atrial fibrillation (4) Anticoagulated on Coumadin Code(s): Z79.01 - BAR WELDER (CURRENT) USE OF ANTICOAGULANTS (5) Ascites Code(s): R18.8 - OTHER ASCITES Qualifiers: Ascites type: other type Qualified Code(s): R18.8 - Other ascites (6) Breast cancer in male Code(s): C50.929 - MALIGNANT NEOPLASM OF UNSP SITE OF UNSPECIFIED MALE BREAST (7) Chronic kidney disease (CKD) Code(s): N18.9 - CHRONIC KIDNEY DISEASE, UNSPECIFIED Qualifiers: Chronic kidney disease stage: unspecified stage Qualified Code(s): N18.9 - Chronic kidney disease, unspecified (8) Coronary artery disease Code(s): I25.10 - ATHSCL HEART DISEASE OF [place] CORONARY ARTERY W/O ANG PCTRS Qualifiers: Coronary Disease-Associated Artery/Lesion type: [place] artery [place] vs. transplanted heart: [place] heart Associated angina: without angina Qualified Code(s): I25.10 - Atherosclerotic heart disease of [place] coronary artery without angina pectoris (9) Pacemaker Code(s): Z95.0 - PRESENCE OF CARDIAC PACEMAKER (10) Pleural effusion Code(s): J90 - PLEURAL EFFUSION, NOT ELSEWHERE CLASSIFIED
[2018-03-25] MEDS: TAMSULOSIN HCL 0.4 MG CAP PO SCH (15:41)
[2018-03-25] MEDS: SERTRALINE HCL 50 MG TABLET (FP) PO SCH (15:41)
[2018-03-25] MEDS: CARVEDILOL 25 MG TABLET (FP) PO SCH ×2 (15:41→22:23)
[2018-03-25] MEDS: PANTOPRAZOLE 40 MG TABLET (FP) PO SCH (15:41)
[2018-03-25] MEDS: POLYETHYLENE GLYCOL 3350 119 GM BTL PO SCH ×2 (15:43→22:23)
[2018-03-25] MEDS ORDERED: PT OWN MED DRAWER 7, Y5N ONE (19:42)
[2018-03-25] MEDS: guaiFENesin 200 MG/10 ML 10 ML UNIT-DOSE CUPS PO PRN (22:28)
[2018-03-26] MEDS: PANTOPRAZOLE 40 MG TABLET (FP) PO SCH (10:21)
[2018-03-26] MEDS: SERTRALINE HCL 50 MG TABLET (FP) PO SCH (10:21)
[2018-03-26] MEDS: TAMSULOSIN HCL 0.4 MG CAP PO SCH (10:21)
[2018-03-26] MEDS: CARVEDILOL 25 MG TABLET (FP) PO SCH ×2 (10:21→22:27)
[2018-03-26] MEDS: POLYETHYLENE GLYCOL 3350 119 GM BTL PO SCH ×2 (10:21→22:27)
--- NOTE | 2018-03-26 13:03 | PN ---
Progress Note (short form) - Note Progress Note: PULMONARY s/p right sided chest tube placement with >2000mL serous drainage. Pleural studies pending.Denies shortness of breath but with persistent cough. Vital Signs Period Temp Pulse Resp BP Sys/[place] Pulse Ox Last 24 Hr 98.1 F-98.1 F 64-81 18-20 102-123/48-77 Intake & Output 03/23/18 03/24/18 03/25/18 03/26/18 23:59 23:59 23:59 23:59 Intake Total 300 200 Output Total 3175 1400 Balance -2875 -1200 Gen: NAD at rest Heart: RRR Lung: decreased breath sounds right base Abd: soft, nontender Ext: no edema CBC, BMP 03/24/18 06:20 03/24/18 06:20 INR, PTT INR 1.94 (0.83-1.09) H 03/25/18 07:56 Active Medications Albuterol/Ipratropium (Duoneb -) 1 amp NEB Q6H PRN PRN Reason: SHORTNESS OF BREATH Last Admin: 03/24/18 21:06 Dose: 1 amp Carvedilol (Coreg -) 25 mg PO BID [facility] Last Admin: 03/26/18 10:21 Dose: 25 mg Dextrose (Glucose Tablet -) 4 gm PO ONCE PRN PRN Reason: BG < 60mg/dl Last Admin: 03/25/18 11:43 Dose: 4 gm Guaifenesin (Robitussin -) 10 ml PO Q6H PRN PRN Reason: COUGH Last Admin: 03/25/18 22:28 Dose: 10 ml Pantoprazole Sodium (Protonix -) 40 mg PO DAILY [facility] Last Admin: 03/26/18 10:21 Dose: 40 mg Polyethylene Glycol (Miralax (For Daily Use) -) 17 gm PO BID [facility] Last Admin: 03/26/18 10:21 Dose: 17 grams Senna (Senna -) 2 tab PO HS PRN PRN Reason: CONSTIPATION Sertraline HCl (Zoloft -) 50 mg PO DAILY [facility] Last Admin: 03/26/18 10:21 Dose: 50 mg Tamsulosin HCl (Flomax -) 0.4 mg PO DAILY@0830 [facility] Last Admin: 03/26/18 10:21 Dose: 0.4 mg A/P Incarcerated Hernia Right Pleural Effusion s/p pigtail catheter placement h/o Breast Ca Acute on Chronic Renal Failure LV Systolic Dysfunction CAD Atrial Fibrillation/AV block s/p PPM Mitral Regurgitation HTN DM - monitor chest tube output - repeat CXR in AM - f/u pleural studies - inhaled bronchodilators - O2 to keep SpO2 >90% - can resume anticoagulation
--- NOTE | 2018-03-26 13:19 | PN ---
Progress Note (short form) - Note Progress Note: pt seen/ examined s/p right side chest tube feels better says cough better as well as sob Vital Signs Temp 98.1 F 03/26/18 06:00 Pulse 69 03/26/18 06:00 Resp 20 03/26/18 06:00 BP 102/60 03/26/18 06:00 Pulse Ox 96 03/23/18 09:00 Intake & Output 03/25/18 03/26/18 03/26/18 23:59 11:59 23:59 Intake Total 300 200 Output Total 3000 1400 Balance -2700 -1200 Intake: Oral 300 200 Output: Chest Tube Drainage 2600 1100 Right Mediastinal 2600 1100 Urine 400 300 Void 400 300 Other: Voiding Method Urinal Urinal # Unmeasured Voids Void 1 1 Bowel Movement No Active Medications Albuterol/Ipratropium (Duoneb -) 1 amp NEB Q6H PRN PRN Reason: SHORTNESS OF BREATH Last Admin: 03/24/18 21:06 Dose: 1 amp Carvedilol (Coreg -) 25 mg PO BID [facility] Last Admin: 03/26/18 10:21 Dose: 25 mg Dextrose (Glucose Tablet -) 4 gm PO ONCE PRN PRN Reason: BG < 60mg/dl Last Admin: 03/25/18 11:43 Dose: 4 gm Guaifenesin (Robitussin -) 10 ml PO Q6H PRN PRN Reason: COUGH Last Admin: 03/25/18 22:28 Dose: 10 ml Pantoprazole Sodium (Protonix -) 40 mg PO DAILY [facility] Last Admin: 03/26/18 10:21 Dose: 40 mg Polyethylene Glycol (Miralax (For Daily Use) -) 17 gm PO BID [facility] Last Admin: 03/26/18 10:21 Dose: 17 grams Senna (Senna -) 2 tab PO HS PRN PRN Reason: CONSTIPATION Sertraline HCl (Zoloft -) 50 mg PO DAILY [facility] Last Admin: 03/26/18 10:21 Dose: 50 mg Tamsulosin HCl (Flomax -) 0.4 mg PO DAILY@0830 [facility] Last Admin: 03/26/18 10:21 Dose: 0.4 mg Warfarin Sodium (Coumadin -) 5 mg PO DAILY@1800 [facility] CBC, BMP 03/24/18 06:20 02/14/19 06:20 Physical Examination Constitutional: Yes: No Distress, comfortable Cardiovascular: Yes: Regular Rate and Rhythm Respiratory: Yes: Diminished .. Right side chest tube + Gastrointestinal: Yes: soft/ hernia + bs present, non tender . Edema: No a/p stable nebs prn coumadin -- restart continue with meds f/u labs daily - oob -chair will follow Problem List - Problems (1) Incarcerated hernia Code(s): K46.0 - UNSP ABDOMINAL HERNIA WITH OBSTRUCTION, WITHOUT GANGRENE (2) Abnormal INR Code(s): R79.1 - ABNORMAL COAGULATION PROFILE (3) Afib Code(s): I48.91 - UNSPECIFIED ATRIAL FIBRILLATION Qualifiers: Atrial fibrillation type: persistent Qualified Code(s): I48.1 - Persistent atrial fibrillation (4) Anticoagulated on Coumadin Code(s): Z79.01 - HALF-WAY (CURRENT) USE OF ANTICOAGULANTS (5) Ascites Code(s): R18.8 - OTHER ASCITES Qualifiers: Ascites type: other type Qualified Code(s): R18.8 - Other ascites (6) Breast cancer in male Code(s): C50.929 - MALIGNANT NEOPLASM OF UNSP SITE OF UNSPECIFIED MALE BREAST (7) Chronic kidney disease (CKD) Code(s): N18.9 - CHRONIC KIDNEY DISEASE, UNSPECIFIED Qualifiers: Chronic kidney disease stage: unspecified stage Qualified Code(s): N18.9 - Chronic kidney disease, unspecified (8) Coronary artery disease Code(s): I25.10 - ATHSCL HEART DISEASE OF [place] CORONARY ARTERY W/O ANG PCTRS Qualifiers: Coronary Disease-Associated Artery/Lesion type: [place] artery [place] vs. transplanted heart: [place] heart Associated angina: without angina Qualified Code(s): I25.10 - Atherosclerotic heart disease of [place] coronary artery without angina pectoris (9) Pacemaker Code(s): Z95.0 - PRESENCE OF CARDIAC PACEMAKER (10) Pleural effusion Code(s): J90 - PLEURAL EFFUSION, NOT ELSEWHERE CLASSIFIED
[2018-03-26 16:18] LABS: INR 1.66 (0.83-1.09); PROTHROMBIN TIME (PATIENT) 19.7 SEC (9.7-13.0)
[2018-03-26] MEDS: WARFARIN NA 5 MG TABLET (UD) PO SCH (18:01)
[2018-03-27 09:16] LABS: BASO % 0.1 % (0-2.0); EOS % 0.8 % (0-4.5); HEMATOCRIT 29.7 % (35.4-49); HEMOGLOBIN 10.1 GM/dL (11.7-16.9); LYMPH % 11.3 % (8-40); MEAN PLT VOLUME 8.1 fl (7.5-11.1); MONO % 10.1 % (3.8-10.2); NEUT % 77.7 % (42.8-82.8); PLATELET COUNT 106 K/MM3 (134-434); RBC 3.06 M/mm3 (4.00-5.60); RDW 16.2 % (11.9-15.9); WHITE BLOOD COUNT 6.5 K/mm3 (4.0-10.0)
[2018-03-27 09:30] LABS: INR 1.7 (0.83-1.09); PROTHROMBIN TIME (PATIENT) 20.2 SEC (9.7-13.0)
[2018-03-27 09:53] LABS: ALBUMIN 2.1 g/dl (3.4-5.0); ALK PHOS 117 U/L (45-117); ANION GAP 9 MMOL/L (8-16); BILIRUBIN,TOTAL 0.7 mg/dL (0.2-1); BLOOD UREA NITROGEN 39 mg/dL (7-18); CALCIUM 7.2 mg/dL (8.5-10.1); CHLORIDE 106 mmol/L (98-107); CO2 27 mmol/L (21-32); CREATININE 1.9 mg/dL (0.55-1.3); GLUCOSE,RANDOM 59 mg/dL (74-106); POTASSIUM 4.4 mmol/L (3.5-5.1); SGOT/AST 20 U/L (15-37); SGPT/ALT 28 U/L (13-61); SODIUM 142 mmol/L (136-145); TOT PROT 4.9 g/dl (6.4-8.2)
--- NOTE | 2018-03-27 10:40 | PN ---
Progress Note (short form) - Note Progress Note: awake/ comfortable. denies pain cough better afebrile Vital Signs Temp 98.0 F 03/26/18 16:55 Pulse 74 03/27/18 09:04 Resp 18 03/27/18 09:04 BP 100/50 L 03/27/18 09:04 Pulse Ox 96 03/23/18 09:00 Intake & Output 03/26/18 03/26/18 03/27/18 11:59 23:59 11:59 Intake Total 200 Output Total 1400 200 40 Balance -1200 -200 -40 Intake: Oral 200 Output: Chest Tube Drainage 1100 40 Right Mediastinal 1100 40 Urine 300 200 Void 300 200 Other: Voiding Method Urinal Urinal # Unmeasured Voids Void 1 1 1 Bowel Movement Yes Active Medications Albuterol/Ipratropium (Duoneb -) 1 amp NEB Q6H PRN PRN Reason: SHORTNESS OF BREATH Last Admin: 03/24/18 21:06 Dose: 1 amp Carvedilol (Coreg -) 25 mg PO BID [facility] Last Admin: 03/26/18 22:27 Dose: 25 mg Dextrose (Glucose Tablet -) 4 gm PO ONCE PRN PRN Reason: BG < 60mg/dl Last Admin: 03/25/18 11:43 Dose: 4 gm Guaifenesin (Robitussin -) 10 ml PO Q6H PRN PRN Reason: COUGH Last Admin: 03/25/18 22:28 Dose: 10 ml Pantoprazole Sodium (Protonix -) 40 mg PO DAILY [facility] Last Admin: 03/26/18 10:21 Dose: 40 mg Polyethylene Glycol (Miralax (For Daily Use) -) 17 gm PO BID [facility] Last Admin: 03/26/18 22:27 Dose: Not Given Senna (Senna -) 2 tab PO HS PRN PRN Reason: CONSTIPATION Sertraline HCl (Zoloft -) 50 mg PO DAILY [facility] Last Admin: 03/26/18 10:21 Dose: 50 mg Tamsulosin HCl (Flomax -) 0.4 mg PO DAILY@0830 [facility] Last Admin: 03/26/18 10:21 Dose: 0.4 mg Warfarin Sodium (Coumadin -) 5 mg PO DAILY@1800 [facility] Last Admin: 03/26/18 18:01 Dose: 5 mg CBC, BMP 03/27/18 07:30 03/27/18 07:30 INR, PTT INR 1.70 (0.83-1.09) H 03/27/18 07:30 Physical Examination Constitutional: Yes: No Distress, comfortable. Cardiovascular: Yes: Regular Rate and Rhythm Respiratory: Yes: Diminished .. Right side chest tube + Gastrointestinal: Yes: soft/ hernia + bs present, non tender .bs + Edema: No. a/p stable nebs prn coumadin -- per inr continue with meds daily - oob -chair f/u cxr will follow Problem List - Problems (1) Incarcerated hernia Code(s): K46.0 - UNSP ABDOMINAL HERNIA WITH OBSTRUCTION, WITHOUT GANGRENE (2) Abnormal INR Code(s): R79.1 - ABNORMAL COAGULATION PROFILE (3) Afib Code(s): I48.91 - UNSPECIFIED ATRIAL FIBRILLATION Qualifiers: Atrial fibrillation type: persistent Qualified Code(s): I48.1 - Persistent atrial fibrillation (4) Anticoagulated on Coumadin Code(s): Z79.01 - RESIDENTIAL (CURRENT) USE OF ANTICOAGULANTS (5) Ascites Code(s): R18.8 - OTHER ASCITES Qualifiers: Ascites type: other type Qualified Code(s): R18.8 - Other ascites (6) Breast cancer in male Code(s): C50.929 - MALIGNANT NEOPLASM OF UNSP SITE OF UNSPECIFIED MALE BREAST (7) Chronic kidney disease (CKD) Code(s): N18.9 - CHRONIC KIDNEY DISEASE, UNSPECIFIED Qualifiers: Chronic kidney disease stage: unspecified stage Qualified Code(s): N18.9 - Chronic kidney disease, unspecified (8) Coronary artery disease Code(s): I25.10 - ATHSCL HEART DISEASE OF [place] CORONARY ARTERY W/O ANG PCTRS Qualifiers: Coronary Disease-Associated Artery/Lesion type: [place] artery [place] vs. transplanted heart: [place] heart Associated angina: without angina Qualified Code(s): I25.10 - Atherosclerotic heart disease of [place] coronary artery without angina pectoris (9) Pacemaker Code(s): Z95.0 - PRESENCE OF CARDIAC PACEMAKER (10) Pleural effusion Code(s): J90 - PLEURAL EFFUSION, NOT ELSEWHERE CLASSIFIED
--- NOTE | 2018-03-27 11:45 | PN ---
Progress Note (short form) - Note Progress Note: PULMONARY Chest tube output decreasing. Pleural studies pending.Denies shortness of breath but with persistent cough. Vital Signs Period Temp Pulse Resp BP Sys/[place]oria Pulse Ox Last 24 Hr 98.0 F 65-74 18-20 99-109/50-52 97 Gen: NAD at rest Heart: RRR Lung: decreased breath sounds right base Abd: soft, nontender Ext: no edema CBC, BMP 03/27/18 07:30 03/27/18 07:30 Active Medications Albuterol/Ipratropium (Duoneb -) 1 amp NEB Q6H PRN PRN Reason: SHORTNESS OF BREATH Last Admin: 03/24/18 21:06 Dose: 1 amp Carvedilol (Coreg -) 25 mg PO BID [facility] Last Admin: 03/26/18 22:27 Dose: 25 mg Dextrose (Glucose Tablet -) 4 gm PO ONCE PRN PRN Reason: BG < 60mg/dl Last Admin: 03/25/18 11:43 Dose: 4 gm Guaifenesin (Robitussin -) 10 ml PO Q6H PRN PRN Reason: COUGH Last Admin: 03/25/18 22:28 Dose: 10 ml Pantoprazole Sodium (Protonix -) 40 mg PO DAILY [facility] Last Admin: 03/26/18 10:21 Dose: 40 mg Polyethylene Glycol (Miralax (For Daily Use) -) 17 gm PO BID [facility] Last Admin: 03/26/18 22:27 Dose: Not Given Senna (Senna -) 2 tab PO HS PRN PRN Reason: CONSTIPATION Sertraline HCl (Zoloft -) 50 mg PO DAILY [facility] Last Admin: 03/26/18 10:21 Dose: 50 mg Tamsulosin HCl (Flomax -) 0.4 mg PO DAILY@0830 [facility] Last Admin: 03/26/18 10:21 Dose: 0.4 mg Warfarin Sodium (Coumadin -) 5 mg PO DAILY@1800 [facility] Last Admin: 03/26/18 18:01 Dose: 5 mg A/P Incarcerated Hernia Right Pleural Effusion s/p pigtail catheter placement h/o Breast Ca Acute on Chronic Renal Failure LV Systolic Dysfunction CAD Atrial Fibrillation/AV block s/p PPM Mitral Regurgitation HTN DM - monitor chest tube output - daily CXR - f/u pleural studies - inhaled bronchodilators - O2 to keep SpO2 >90% - can resume anticoagulation
--- NOTE | 2018-03-27 12:20 | PN ---
Progress Note, Physician History of Present Illness: Resting, dyspnea and cough resolved. - Current Medication List Current Medications: Active Medications Albuterol/Ipratropium (Duoneb -) 1 amp NEB Q6H PRN PRN Reason: SHORTNESS OF BREATH Last Admin: 03/24/18 21:06 Dose: 1 amp Carvedilol (Coreg -) 25 mg PO BID [facility] Last Admin: 03/26/18 22:27 Dose: 25 mg Dextrose (Glucose Tablet -) 4 gm PO ONCE PRN PRN Reason: BG < 60mg/dl Last Admin: 03/25/18 11:43 Dose: 4 gm Guaifenesin (Robitussin -) 10 ml PO Q6H PRN PRN Reason: COUGH Last Admin: 03/25/18 22:28 Dose: 10 ml Pantoprazole Sodium (Protonix -) 40 mg PO DAILY [facility] Last Admin: 03/26/18 10:21 Dose: 40 mg Polyethylene Glycol (Miralax (For Daily Use) -) 17 gm PO BID [facility] Last Admin: 03/26/18 22:27 Dose: Not Given Senna (Senna -) 2 tab PO HS PRN PRN Reason: CONSTIPATION Sertraline HCl (Zoloft -) 50 mg PO DAILY [facility] Last Admin: 03/26/18 10:21 Dose: 50 mg Tamsulosin HCl (Flomax -) 0.4 mg PO DAILY@0830 [facility] Last Admin: 03/26/18 10:21 Dose: 0.4 mg Warfarin Sodium (Coumadin -) 5 mg PO DAILY@1800 [facility] Last Admin: 03/26/18 18:01 Dose: 5 mg - Objective Vital Signs: Vital Signs Temperature 98.0 F 03/26/18 16:55 Pulse Rate 74 03/27/18 09:04 Respiratory Rate 18 03/27/18 09:04 Blood Pressure 100/50 L 03/27/18 09:04 O2 Sat by Pulse Oximetry (%) 97 03/27/18 10:00 Constitutional: Yes: No Distress, Calm Neck: Yes: Supple Cardiovascular: Yes: Pulse Irregular Respiratory: Yes: Regular, Diminished, Other (Right chest tube in place) Gastrointestinal: Yes: Normal Bowel Sounds, Soft Edema: No Labs: CBC, BMP 03/27/18 07:30 03/27/18 07:30 INR, PTT INR 1.70 (0.83-1.09) H 03/27/18 07:30 Problem List - Problems (1) Incarcerated hernia Code(s): K46.0 - UNSP ABDOMINAL HERNIA WITH OBSTRUCTION, WITHOUT GANGRENE (2) Acute on chronic renal failure Code(s): N17.9 - ACUTE KIDNEY FAILURE, UNSPECIFIED; N18.9 - CHRONIC KIDNEY DISEASE, UNSPECIFIED Qualifiers: Chronic kidney disease stage: stage 3 (moderate) (3) Afib Code(s): I48.91 - UNSPECIFIED ATRIAL FIBRILLATION Qualifiers: Atrial fibrillation type: persistent Qualified Code(s): I48.1 - Persistent atrial fibrillation (4) Anemia Code(s): D64.9 - ANEMIA, UNSPECIFIED Qualifiers: Anemia type: unspecified type Qualified Code(s): D64.9 - Anemia, unspecified (5) Anticoagulated on Coumadin Code(s): 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 transplanted heart: [place] heart Associated angina: without angina Qualified Code(s): I25.10 - Atherosclerotic heart disease of [place] coronary artery without angina pectoris (7) HTN (hypertension) Code(s): I10 - ESSENTIAL (PRIMARY) HYPERTENSION Qualifiers: Hypertension type: essential hypertension Qualified Code(s): I10 - Essential (primary) hypertension (8) Hyperlipidemia Code(s): E78.5 - HYPERLIPIDEMIA, UNSPECIFIED Qualifiers: Hyperlipidemia type: pure hypercholesterolemia Qualified Code(s): E78.00 - Pure hypercholesterolemia, unspecified; E78.0 - Pure hypercholesterolemia (9) Pacemaker Code(s): Z95.0 - PRESENCE OF CARDIAC PACEMAKER (10) Pleural effusion, right Code(s): J90 - PLEURAL EFFUSION, NOT ELSEWHERE CLASSIFIED (11) Pulmonary hypertension Code(s): I27.2 - OTHER SECONDARY PULMONARY HYPERTENSION * DO NOT USE * (12) Sick sinus syndrome Code(s): I49.5 - SICK SINUS SYNDROME (13) Status post coronary artery stent placement Code(s): Z95.5 - PRESENCE OF CORONARY ANGIOPLASTY IMPLANT AND GRAFT (14) Systolic and diastolic CHF, acute on chronic Code(s): I50.43 - ACUTE ON CHRONIC COMBINED SYSTOLIC AND DIASTOLIC HRT FAIL (15) Type 2 diabetes mellitus Code(s): E11.9 - TYPE 2 DIABETES MELLITUS WITHOUT COMPLICATIONS Qualifiers: Diabetes mellitus complication status: with kidney complications Diabetes mellitus complication detail: with chronic kidney disease Chronic kidney disease stage: stage 3 (moderate) Assessment/Plan 02/09/2018 Echo: Normal LV size with severely decreased LV fxn, severe TR, severe pulm HTN, pacer in RV 1. Incarcerated spigelian hernia without strangulation, for conservative management considering patient's co-morbidities 2. Right pleural effusion with underlying history of breast carcinoma post mastectomy post chemotherapy, s/p pigtail catheter placement 3. 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 CAD post PCI/stent angina pectoris 5. Persistent/chronic atrial fibrillation on A/C, [id number] score of 6, subtherapeutic INR 6. AV block post PPM 7. Mitral valve and tricuspid valve regurgitation 8. HTN/HCVD 9. DM 10. Hypercholesterolemia 11. Acute on CKD with proteinuria and resolved hyperkalemia PLAN: 1. Resume coumadin per INR post right pig-tail placement 2. Continue Carvedilol 25 mg BID as tolerated 3. Initiate Entresto once Acute on CKD with hyperkalemia resolves 4. Monitor chest tube output, daily CXR
[2018-03-27] MEDS: POLYETHYLENE GLYCOL 3350 119 GM BTL PO SCH ×2 (12:23→21:57)
[2018-03-27] MEDS: CARVEDILOL 25 MG TABLET (FP) PO SCH ×2 (12:26→22:06)
[2018-03-27] MEDS: DEXTROSE 4 GM TAB.CHEW PO PRN (12:26)
[2018-03-27] MEDS: SERTRALINE HCL 50 MG TABLET (FP) PO SCH (12:26)
[2018-03-27] MEDS: PANTOPRAZOLE 40 MG TABLET (FP) PO SCH (12:26)
[2018-03-27] MEDS: TAMSULOSIN HCL 0.4 MG CAP PO SCH (12:26)
[2018-03-27] MEDS: WARFARIN NA 5 MG TABLET (UD) PO SCH (18:12)
[2018-03-28] MEDS: ALBUTEROL SO4 2.5/IPRATROPIUM 0.5 INH SOL 3 ML VIAL.NEB. NEB PRN ×2 (07:25→14:12)
[2018-03-28 08:20] LABS: INR 2.34 (0.83-1.09); PROTHROMBIN TIME (PATIENT) 27.9 SEC (9.7-13.0)
[2018-03-28] MEDS: TAMSULOSIN HCL 0.4 MG CAP PO SCH (10:10)
[2018-03-28] MEDS: CARVEDILOL 25 MG TABLET (FP) PO SCH ×2 (10:10→21:24)
[2018-03-28] MEDS: SERTRALINE HCL 50 MG TABLET (FP) PO SCH (10:10)
[2018-03-28] MEDS: PANTOPRAZOLE 40 MG TABLET (FP) PO SCH (10:11)
[2018-03-28] MEDS: POLYETHYLENE GLYCOL 3350 119 GM BTL PO SCH ×2 (13:31→21:04)
--- NOTE | 2018-03-28 13:36 | PN ---
Progress Note (short form) - Note Progress Note: comfortable no distress Vital Signs Temp 97.3 F L 03/28/18 06:00 Pulse 67 03/28/18 06:00 Resp 18 03/28/18 09:00 BP 114/70 03/28/18 06:00 Pulse Ox 99 03/28/18 09:00 Intake & Output 03/27/18 03/28/18 03/28/18 23:59 11:59 23:59 Output Total 110 Balance -110 Output: Chest Tube Drainage 10 Right Mediastinal 10 Urine 100 Void 100 Other: Voiding Method Urinal Urinal # Unmeasured Voids Void 3 Bowel Movement Yes Active Medications Albuterol/Ipratropium (Duoneb -) 1 amp NEB Q6H PRN PRN Reason: SHORTNESS OF BREATH Last Admin: 03/28/18 07:25 Dose: 1 amp Carvedilol (Coreg -) 25 mg PO BID [facility] Last Admin: 03/28/18 10:10 Dose: 25 mg Dextrose (Glucose Tablet -) 4 gm PO ONCE PRN PRN Reason: BG < 60mg/dl Last Admin: 03/27/18 12:26 Dose: 4 gm Guaifenesin (Robitussin -) 10 ml PO Q6H PRN PRN Reason: COUGH Last Admin: 03/25/18 22:28 Dose: 10 ml Nystatin (Nystop Powder -) [facility] Pantoprazole Sodium (Protonix -) 40 mg PO DAILY [facility] Last Admin: 03/28/18 10:11 Dose: 40 mg Polyethylene Glycol (Miralax (For Daily Use) -) 17 gm PO BID [facility] Last Admin: 03/28/18 13:31 Dose: Not Given Senna (Senna -) 2 tab PO HS PRN PRN Reason: CONSTIPATION Sertraline HCl (Zoloft -) 50 mg PO DAILY [facility] Last Admin: 03/28/18 10:10 Dose: 50 mg Tamsulosin HCl (Flomax -) 0.4 mg PO DAILY@0830 [facility] Last Admin: 03/28/18 10:10 Dose: 0.4 mg Warfarin Sodium (Coumadin -) 5 mg PO DAILY@1800 [facility] Last Admin: 03/27/18 18:12 Dose: 5 mg CBC, BMP 03/27/18 07:30 03/27/18 07:30 INR, PTT INR 2.34 (0.83-1.09) H 03/28/18 07:28 Physical Examination Constitutional: Yes: No Distress, comfortable. Cardiovascular: Yes: Regular Rate and Rhythm Respiratory: Yes: Diminished .. Right side chest tube + Gastrointestinal: Yes: soft/ hernia + bs present, non tender .bs + Edema: No. a/p stable nebs prn coumadin -- per inr continue with meds daily - oob -chair discussed with today -- Chest tube to be adjusted will follow Problem List - Problems (1) Incarcerated hernia Code(s): K46.0 - UNSP ABDOMINAL HERNIA WITH OBSTRUCTION, WITHOUT GANGRENE (2) Abnormal INR Code(s): R79.1 - ABNORMAL COAGULATION PROFILE (3) Afib Code(s): I48.91 - UNSPECIFIED ATRIAL FIBRILLATION Qualifiers: Atrial fibrillation type: persistent Qualified Code(s): I48.1 - Persistent atrial fibrillation (4) Anticoagulated on Coumadin Code(s): Z79.01 - INTERMEDIATE (CURRENT) USE OF ANTICOAGULANTS (5) Ascites Code(s): R18.8 - OTHER ASCITES Qualifiers: Ascites type: other type Qualified Code(s): R18.8 - Other ascites (6) Breast cancer in male Code(s): C50.929 - MALIGNANT NEOPLASM OF UNSP SITE OF UNSPECIFIED MALE BREAST (7) Chronic kidney disease (CKD) Code(s): N18.9 - CHRONIC KIDNEY DISEASE, UNSPECIFIED Qualifiers: Chronic kidney disease stage: unspecified stage Qualified Code(s): N18.9 - Chronic kidney disease, unspecified (8) Coronary artery disease Code(s): I25.10 - ATHSCL HEART DISEASE OF [place] CORONARY ARTERY W/O ANG PCTRS Qualifiers: Coronary Disease-Associated Artery/Lesion type: [place] artery [place] vs. transplanted heart: [place] heart Associated angina: without angina Qualified Code(s): I25.10 - Atherosclerotic heart disease of [place] coronary artery without angina pectoris (9) Pacemaker Code(s): Z95.0 - PRESENCE OF CARDIAC PACEMAKER (10) Pleural effusion Code(s): J90 - PLEURAL EFFUSION, NOT ELSEWHERE CLASSIFIED
[2018-03-28] MEDS ORDERED: PT OWN MED DRAWER 7, Y5N ONE (13:52)
[2018-03-28] MEDS: NYSTATIN POWDER 100,000 UNITS/GM - 15 GM TOPICAL POWDER TP SCH (13:59)
--- NOTE | 2018-03-28 15:00 | PN ---
Progress Note (short form) - Note Progress Note: PULMONARY Chest tube output decreasing, sent for repositioning of tube. afebrile Gen: NAD at rest Heart: RRR Lung: decreased breath sounds right base Abd: soft, nontender Ext: no edema Active Medications reviewed labs/notes/images/reviewed A/P Incarcerated Hernia Right Pleural Effusion s/p pigtail catheter placement h/o Breast Ca Acute on Chronic Renal Failure LV Systolic Dysfunction CAD Atrial Fibrillation/AV block s/p PPM Mitral Regurgitation HTN DM - monitor chest tube output - daily CXR - f/u pleural studies - inhaled bronchodilators - O2 to keep SpO2 >90% - can resume anticoagulation Primo CAMP MD
--- NOTE | 2018-03-28 15:41 | PN ---
Progress Note, Physician History of Present Illness: Resting, dyspnea and cough resolved. Right chest tube external catheters and pleurvac replaced. - Current Medication List Current Medications: Active Medications Albuterol/Ipratropium (Duoneb -) 1 amp NEB Q6H PRN PRN Reason: SHORTNESS OF BREATH Last Admin: 03/28/18 14:12 Dose: 1 amp Carvedilol (Coreg -) 25 mg PO BID [facility] Last Admin: 03/28/18 10:10 Dose: 25 mg Dextrose (Glucose Tablet -) 4 gm PO ONCE PRN PRN Reason: BG < 60mg/dl Last Admin: 03/27/18 12:26 Dose: 4 gm Guaifenesin (Robitussin -) 10 ml PO Q6H PRN PRN Reason: COUGH Last Admin: 03/25/18 22:28 Dose: 10 ml Nystatin (Nystop Powder -) 1 applic TP QSHIFT [facility] Last Admin: 03/28/18 13:59 Dose: 1 applic Pantoprazole Sodium (Protonix -) 40 mg PO DAILY [facility] Last Admin: 03/28/18 10:11 Dose: 40 mg Polyethylene Glycol (Miralax (For Daily Use) -) 17 gm PO BID [facility] Last Admin: 03/28/18 13:31 Dose: Not Given Senna (Senna -) 2 tab PO HS PRN PRN Reason: CONSTIPATION Sertraline HCl (Zoloft -) 50 mg PO DAILY [facility] Last Admin: 03/28/18 10:10 Dose: 50 mg Tamsulosin HCl (Flomax -) 0.4 mg PO DAILY@0830 [facility] Last Admin: 03/28/18 10:10 Dose: 0.4 mg Warfarin Sodium (Coumadin -) 5 mg PO DAILY@1800 [facility] Last Admin: 03/27/18 18:12 Dose: 5 mg - Objective Vital Signs: Vital Signs Temperature 97.3 F L 03/28/18 06:00 Pulse Rate 67 03/28/18 06:00 Respiratory Rate 18 03/28/18 09:00 Blood Pressure 114/70 03/28/18 06:00 O2 Sat by Pulse Oximetry (%) 99 03/28/18 09:00 Constitutional: Yes: No Distress, Calm, Thin Neck: Yes: Supple Cardiovascular: Yes: Regular Rate and Rhythm Respiratory: Yes: Regular, Diminished Gastrointestinal: Yes: Soft, Hypoactive Bowel Sounds Edema: No Labs: CBC, BMP 03/27/18 07:30 03/27/18 07:30 INR, PTT INR 2.34 (0.83-1.09) H 03/28/18 07:28 Problem List - Problems (1) Incarcerated hernia Code(s): K46.0 - UNSP ABDOMINAL HERNIA WITH OBSTRUCTION, WITHOUT GANGRENE (2) Acute on chronic renal failure Code(s): N17.9 - ACUTE KIDNEY FAILURE, UNSPECIFIED; N18.9 - CHRONIC KIDNEY DISEASE, UNSPECIFIED Qualifiers: Chronic kidney disease stage: stage 3 (moderate) (3) Afib Code(s): I48.91 - UNSPECIFIED ATRIAL FIBRILLATION Qualifiers: Atrial fibrillation type: persistent Qualified Code(s): I48.1 - Persistent atrial fibrillation (4) Anemia Code(s): D64.9 - ANEMIA, UNSPECIFIED Qualifiers: Anemia type: unspecified type Qualified Code(s): D64.9 - Anemia, unspecified (5) Anticoagulated on Coumadin Code(s): Z79.01 - ASSISTED (CURRENT) USE OF ANTICOAGULANTS (6) Coronary artery disease Code(s): I25.10 - ATHSCL HEART DISEASE OF [place] CORONARY ARTERY W/O ANG PCTRS Qualifiers: Coronary Disease-Associated Artery/Lesion type: [place] artery [place] vs. transplanted heart: [place] heart Associated angina: without angina Qualified Code(s): I25.10 - Atherosclerotic heart disease of [place] coronary artery without angina pectoris (7) HTN (hypertension) Code(s): I10 - ESSENTIAL (PRIMARY) HYPERTENSION Qualifiers: Hypertension type: essential hypertension Qualified Code(s): I10 - Essential (primary) hypertension (8) Hyperlipidemia Code(s): E78.5 - HYPERLIPIDEMIA, UNSPECIFIED Qualifiers: Hyperlipidemia type: pure hypercholesterolemia Qualified Code(s): E78.00 - Pure hypercholesterolemia, unspecified; E78.0 - Pure hypercholesterolemia (9) Pacemaker Code(s): Z95.0 - PRESENCE OF CARDIAC PACEMAKER (10) Pleural effusion, right Code(s): J90 - PLEURAL EFFUSION, NOT ELSEWHERE CLASSIFIED (11) Pulmonary hypertension Code(s): I27.2 - OTHER SECONDARY PULMONARY HYPERTENSION * DO NOT USE * (12) Sick sinus syndrome Code(s): I49.5 - SICK SINUS SYNDROME (13) Status post coronary artery stent placement Code(s): Z95.5 - PRESENCE OF CORONARY ANGIOPLASTY IMPLANT AND GRAFT (14) Systolic and diastolic CHF, acute on chronic Code(s): I50.43 - ACUTE ON CHRONIC COMBINED SYSTOLIC AND DIASTOLIC HRT FAIL (15) Type 2 diabetes mellitus Code(s): E11.9 - TYPE 2 DIABETES MELLITUS WITHOUT COMPLICATIONS Qualifiers: Diabetes mellitus complication status: with kidney complications Diabetes mellitus complication detail: with chronic kidney disease Chronic kidney disease stage: stage 3 (moderate) Assessment/Plan 02/09/2018 Echo: Normal LV size with severely decreased LV fxn, severe TR, severe pulm HTN, pacer in RV 1. Incarcerated spigelian hernia without strangulation, for conservative management considering patient's co-morbidities 2. Right pleural effusion with underlying history of breast carcinoma post mastectomy post chemotherapy, s/p pigtail catheter placement and repositioning for decreased drainage 3. 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 CAD post PCI/stent angina pectoris 5. Persistent/chronic atrial fibrillation on A/C, [id number] score of 6, with therapeutic INR 6. AV block post PPM 7. Mitral valve and tricuspid valve regurgitation 8. HTN/HCVD 9. DM 10. Hypercholesterolemia 11. Acute on CKD with proteinuria and resolved hyperkalemia PLAN: 1. Resumed coumadin per INR post right pig-tail placement and repositioning 2. Continue Carvedilol 25 mg BID as tolerated 3. Initiate Entresto once Acute on CKD with hyperkalemia resolves 4. Monitor chest tube output, daily CXR, BD, O2 to keep SpO2 >90%
[2018-03-28] MEDS: WARFARIN NA 5 MG TABLET (UD) PO SCH (17:12)
[2018-03-29] MEDS: NYSTATIN POWDER 100,000 UNITS/GM - 15 GM TOPICAL POWDER TP SCH ×4 (00:39→23:10)
[2018-03-29 06:56] LABS: BASO % 0.2 % (0-2.0); EOS % 1.1 % (0-4.5); HEMATOCRIT 29.1 % (35.4-49); HEMOGLOBIN 9.8 GM/dL (11.7-16.9); LYMPH % 8.4 % (8-40); MCH 32.5 pg (25.7-33.7); MCHC 33.8 g/dl (32.0-35.9); MEAN CELL VOLUME 96.3 fl (80-96); MEAN PLT VOLUME 9.2 fl (7.5-11.1); MONO % 8.9 % (3.8-10.2); NEUT % 81.4 % (42.8-82.8); PLATELET COUNT 103 K/MM3 (134-434); RBC 3.03 M/mm3 (4.00-5.60); RDW 16.6 % (11.9-15.9); WHITE BLOOD COUNT 7.3 K/mm3 (4.0-10.0)
[2018-03-29 07:31] LABS: ALK PHOS 124 U/L (45-117); ANION GAP 6 MMOL/L (8-16); BILIRUBIN,TOTAL 0.8 mg/dL (0.2-1); BLOOD UREA NITROGEN 38 mg/dL (7-18); CALCIUM 7.5 mg/dL (8.5-10.1); CHLORIDE 106 mmol/L (98-107); CO2 29 mmol/L (21-32); CREATININE 1.8 mg/dL (0.55-1.3); GLUCOSE,RANDOM 96 mg/dL (74-106); SGOT/AST 16 U/L (15-37); SGPT/ALT 21 U/L (13-61); SODIUM 141 mmol/L (136-145); TOT PROT 4.9 g/dl (6.4-8.2)
[2018-03-29 07:32] LABS: INR 3.31 (0.83-1.09); PROTHROMBIN TIME (PATIENT) 39.5 SEC (9.7-13.0)
[2018-03-29] MEDS: ALBUTEROL SO4 2.5/IPRATROPIUM 0.5 INH SOL 3 ML VIAL.NEB. NEB PRN ×2 (08:40→20:36)
[2018-03-29] MEDS: TAMSULOSIN HCL 0.4 MG CAP PO SCH (08:53)
[2018-03-29] MEDS ORDERED: PT OWN MED DRAWER 7, Y5N ONE (09:04)
[2018-03-29] MEDS: CARVEDILOL 25 MG TABLET (FP) PO SCH ×2 (09:09→21:18)
[2018-03-29] MEDS: PANTOPRAZOLE 40 MG TABLET (FP) PO SCH (09:09)
[2018-03-29] MEDS: SERTRALINE HCL 50 MG TABLET (FP) PO SCH (09:09)
[2018-03-29] MEDS: POLYETHYLENE GLYCOL 3350 119 GM BTL PO SCH ×2 (09:11→21:19)
--- NOTE | 2018-03-29 12:11 | PN ---
Progress Note, Physician History of Present Illness: PULMONARY ALERT,NO DISTRESS,SOB IMPROVED. CHEST TUBE DRAINAGE 820CC - Current Medication List Current Medications: Active Medications Albuterol/Ipratropium (Duoneb -) 1 amp NEB Q6H PRN PRN Reason: SHORTNESS OF BREATH Last Admin: 03/29/18 08:40 Dose: 1 amp Carvedilol (Coreg -) 25 mg PO BID [facility] Last Admin: 03/29/18 09:09 Dose: 25 mg Dextrose (Glucose Tablet -) 4 gm PO ONCE PRN PRN Reason: BG < 60mg/dl Last Admin: 03/27/18 12:26 Dose: 4 gm Guaifenesin (Robitussin -) 10 ml PO Q6H PRN PRN Reason: COUGH Last Admin: 03/25/18 22:28 Dose: 10 ml Nystatin (Nystop Powder -) 1 applic TP QSHIFT [facility] Last Admin: 03/29/18 06:23 Dose: 1 applic Pantoprazole Sodium (Protonix -) 40 mg PO DAILY [facility] Last Admin: 03/29/18 09:09 Dose: 40 mg Polyethylene Glycol (Miralax (For Daily Use) -) 17 gm PO BID [facility] Last Admin: 03/29/18 09:11 Dose: 17 grams Senna (Senna -) 2 tab PO HS PRN PRN Reason: CONSTIPATION Sertraline HCl (Zoloft -) 50 mg PO DAILY [facility] Last Admin: 03/29/18 09:09 Dose: 50 mg Tamsulosin HCl (Flomax -) 0.4 mg PO DAILY@0830 [facility] Last Admin: 03/29/18 08:53 Dose: 0.4 mg Warfarin Sodium (Coumadin -) 5 mg PO DAILY@1800 [facility] Last Admin: 03/28/18 17:12 Dose: 5 mg - Objective Vital Signs: Vital Signs Temperature 97.5 F L 03/29/18 09:00 Pulse Rate 68 03/29/18 09:00 Respiratory Rate 18 03/29/18 09:00 Blood Pressure 119/60 03/29/18 09:00 O2 Sat by Pulse Oximetry (%) 99 03/28/18 21:00 Constitutional: Yes: Calm, Thin Eyes: Yes: WNL HENT: Yes: WNL Neck: Yes: WNL Cardiovascular: Yes: Pulse Irregular, S1, S2 Respiratory: Yes: Other (IMPROVED BS ON R) Gastrointestinal: Yes: Normal Bowel Sounds, Soft Extremities: Yes: WNL Edema: No Labs: CBC, BMP 03/29/18 06:00 03/29/18 06:00 INR, PTT INR 3.31 (0.83-1.09) H 03/29/18 06:00 Assessment/Plan Problem List - Problems (1) Incarcerated hernia Code(s): K46.0 - UNSP ABDOMINAL HERNIA WITH OBSTRUCTION, WITHOUT GANGRENE NOT A SURGICAL CANDIDATE (2) Acute on chronic renal failure Code(s): N17.9 - ACUTE KIDNEY FAILURE, UNSPECIFIED; N18.9 - CHRONIC KIDNEY DISEASE, UNSPECIFIED Qualifiers: Chronic kidney disease stage: stage 3 (moderate) (3) Afib Code(s): I48.91 - UNSPECIFIED ATRIAL FIBRILLATION Qualifiers: Atrial fibrillation type: persistent Qualified Code(s): I48.1 - Persistent atrial fibrillation (4) Anemia Code(s): D64.9 - ANEMIA, UNSPECIFIED Qualifiers: Anemia type: unspecified type Qualified Code(s): D64.9 - Anemia, unspecified (5) Anticoagulated on Coumadin Code(s): Z79.01 - RETIREMENT (CURRENT) USE OF ANTICOAGULANTS (6) Coronary artery disease Code(s): I25.10 - ATHSCL HEART DISEASE OF [place] CORONARY ARTERY W/O ANG PCTRS Qualifiers: Coronary Disease-Associated Artery/Lesion type: [place] artery [place] vs. transplanted heart: [place] heart Associated angina: without angina Qualified Code(s): I25.10 - Atherosclerotic heart disease of [place] coronary artery without angina pectoris (7) HTN (hypertension) Code(s): I10 - ESSENTIAL (PRIMARY) HYPERTENSION Qualifiers: Hypertension type: essential hypertension Qualified Code(s): I10 - Essential (primary) hypertension (8) Hyperlipidemia Code(s): E78.5 - HYPERLIPIDEMIA, UNSPECIFIED Qualifiers: Hyperlipidemia type: pure hypercholesterolemia Qualified Code(s): E78.00 - Pure hypercholesterolemia, unspecified; E78.0 - Pure hypercholesterolemia (9) Pacemaker Code(s): Z95.0 - PRESENCE OF CARDIAC PACEMAKER (10) Pleural effusion, right Code(s): J90 - PLEURAL EFFUSION, NOT ELSEWHERE CLASSIFIED (11) Pulmonary hypertension Code(s): I27.2 - OTHER SECONDARY PULMONARY HYPERTENSION * DO NOT USE * (12) Sick sinus syndrome Code(s): I49.5 - SICK SINUS SYNDROME (13) Status post coronary artery stent placement Code(s): Z95.5 - PRESENCE OF CORONARY ANGIOPLASTY IMPLANT AND GRAFT (14) Supratherapeutic INR Code(s): R79.1 - ABNORMAL COAGULATION PROFILE (15) Systolic and diastolic CHF, acute on chronic Code(s): I50.43 - ACUTE ON CHRONIC COMBINED SYSTOLIC AND DIASTOLIC HRT FAIL (16) Type 2 diabetes mellitus Code(s): E11.9 - TYPE 2 DIABETES MELLITUS WITHOUT COMPLICATIONS Qualifiers: Diabetes mellitus complication status: with kidney complications Diabetes mellitus complication detail: with chronic kidney disease Chronic kidney disease stage: stage 3 (moderate) A/P Incarcerated Hernia Right Pleural Effusion S/P chest tube h/o Breast Ca Acute on Chronic Renal Failure LV Systolic Dysfunction CAD Atrial Fibrillation/AV block s/p PPM Mitral Regurgitation HTN DM Supratherapeutic INR improved - inhaled bronchodilators - O2 to keep SpO2 >90% - anticoagulation as per cardiology - monitor chest tube output DR AKINS
--- NOTE | 2018-03-29 12:29 | PN ---
Progress Note (short form) - Note Progress Note: coughing less s/p thoracentesis chest tube draining not SOB no abd pain Vital Signs - 24 hr 03/28/18 03/28/18 03/28/18 14:46 18:00 21:00 Temperature 97.4 F L 97.0 F L Pulse Rate 73 69 Respiratory 18 18 Rate Blood Pressure 96/57 L O2 Sat by Pulse 99 Oximetry (%) 03/28/18 03/29/18 03/29/18 21:23 06:00 09:00 Temperature 98.0 F 97.5 F L Pulse Rate 64 66 68 Respiratory 18 18 18 Rate Blood Pressure 118/75 114/56 L 119/60 O2 Sat by Pulse Oximetry (%) Current Medications Generic Name Dose Route Start Last Admin Trade Name Freq PRN Reason Stop Dose Admin Albuterol/Ipratropium 1 amp 03/19/18 17:38 03/29/18 08:40 Duoneb - NEB 1 amp Q6H PRN Administration SHORTNESS OF BREATH Carvedilol 25 mg 03/19/18 22:00 03/29/18 09:09 Coreg - PO 25 mg BID [facility] Administration Dextrose 4 gm 03/19/18 23:22 03/27/18 12:26 Glucose Tablet - PO 4 gm ONCE PRN Administration BG < 60mg/dl Guaifenesin 10 ml 03/18/18 18:32 03/25/18 22:28 Robitussin - PO 10 ml Q6H PRN Administration COUGH Insulin Aspart 0 units 03/29/18 16:30 Novolog Vial SQ ACHS [facility] Protocol Nystatin 1 applic 03/28/18 14:00 03/29/18 06:23 Nystop Powder - TP 1 applic QSHIFT [facility] Administration Pantoprazole Sodium 40 mg 03/20/18 10:00 03/29/18 09:09 Protonix - PO 40 mg DAILY [facility] Administration Polyethylene Glycol 17 gm 03/23/18 11:30 03/29/18 09:11 Miralax (For Daily Use) - PO 17 grams BID [facility] Administration Senna 2 tab 03/23/18 11:16 Senna - PO HS PRN CONSTIPATION Sertraline HCl 50 mg 03/20/18 10:00 03/29/18 09:09 Zoloft - PO 50 mg DAILY [facility] Administration Tamsulosin HCl 0.4 mg 03/20/18 08:30 03/29/18 08:53 Flomax - PO 0.4 mg DAILY@0830 [facility] Administration Laboratory Results - last 24 hr 03/25/18 03/28/18 03/28/18 02:53 16:33 21:18 WBC RBC Hgb Hct MCV MCH MCHC RDW Plt Count MPV Absolute Neuts (auto) Neutrophils % Lymphocytes % Monocytes % Eosinophils % Basophils % Nucleated RBC % PT with INR INR Sodium Potassium Chloride Carbon Dioxide Anion Gap BUN Creatinine Creat Clearance w eGFR POC Glucometer 91 183 186 Random Glucose Calcium Total Bilirubin AST ALT Alkaline Phosphatase Total Protein Albumin 03/29/18 03/29/18 03/29/18 05:53 06:00 06:00 WBC 7.3 RBC 3.03 L Hgb 9.8 L Hct 29.1 L MCV 96.3 H MCH 32.5 MCHC 33.8 RDW 16.6 H Plt Count 103 L MPV 9.2 D Absolute Neuts (auto) 5.9 Neutrophils % 81.4 Lymphocytes % 8.4 D Monocytes % 8.9 Eosinophils % 1.1 Basophils % 0.2 Nucleated RBC % 0 PT with INR 39.50 H INR 3.31 H Sodium Potassium Chloride Carbon Dioxide Anion Gap BUN Creatinine Creat Clearance w eGFR POC Glucometer 97 Random Glucose Calcium Total Bilirubin AST ALT Alkaline Phosphatase Total Protein Albumin 03/29/18 03/29/18 06:00 11:05 WBC RBC Hgb Hct MCV MCH MCHC RDW Plt Count MPV Absolute Neuts (auto) Neutrophils % Lymphocytes % Monocytes % Eosinophils % Basophils % Nucleated RBC % PT with INR INR Sodium 141 Potassium 4.0 Chloride 106 Carbon Dioxide 29 Anion Gap 6 L BUN 38 H Creatinine 1.8 H Creat Clearance w eGFR 36.39 POC Glucometer 171 Random Glucose 96 Calcium 7.5 L Total Bilirubin 0.8 AST 16 ALT 21 Alkaline Phosphatase 124 H Total Protein 4.9 L Albumin 2.0 L Physical Examination Constitutional: Yes: No Distress, comfortable Cardiovascular: Yes: Regular Rate and Rhythm Respiratory: Yes: Diminished - chest tube Gastrointestinal: Yes: soft/ hernia + bs present, NT Edema: No Neuro- a0x3 a/p stable not SOB no JVD dc iv fluids nebs prn hold coumadin today , INR high monitor for hypoglycemia continue with meds pt does not want any surgical interventions for hernia Problem List - Problems (1) Incarcerated hernia Code(s): K46.0 - UNSP ABDOMINAL HERNIA WITH OBSTRUCTION, WITHOUT GANGRENE (2) Abnormal INR Code(s): R79.1 - ABNORMAL COAGULATION PROFILE (3) Afib Code(s): I48.91 - UNSPECIFIED ATRIAL FIBRILLATION Qualifiers: Atrial fibrillation type: persistent Qualified Code(s): I48.1 - Persistent atrial fibrillation (4) Anemia Code(s): D64.9 - ANEMIA, UNSPECIFIED Qualifiers: Anemia type: unspecified type Qualified Code(s): D64.9 - Anemia, unspecified (5) Anticoagulated on Coumadin Code(s): Z79.01 - PRISON (CURRENT) USE OF ANTICOAGULANTS (6) Breast cancer in male Code(s): C50.929 - MALIGNANT NEOPLASM OF UNSP SITE OF UNSPECIFIED MALE BREAST (7) Chronic kidney disease (CKD) Code(s): N18.9 - CHRONIC KIDNEY DISEASE, UNSPECIFIED Qualifiers: Chronic kidney disease stage: unspecified stage Qualified Code(s): N18.9 - Chronic kidney disease, unspecified
--- NOTE | 2018-03-29 14:14 | PN ---
Progress Note, Physician Chief Complaint: Events noted No chest pain or SOB History of Present Illness: Patient was seen and examined. Chart was reviewed Not in distress Chest tube draining - Current Medication List Current Medications: Active Medications Albuterol/Ipratropium (Duoneb -) 1 amp NEB Q6H PRN PRN Reason: SHORTNESS OF BREATH Last Admin: 03/29/18 08:40 Dose: 1 amp Carvedilol (Coreg -) 25 mg PO BID [facility] Last Admin: 03/29/18 09:09 Dose: 25 mg Dextrose (Glucose Tablet -) 4 gm PO ONCE PRN PRN Reason: BG < 60mg/dl Last Admin: 03/27/18 12:26 Dose: 4 gm Guaifenesin (Robitussin -) 10 ml PO Q6H PRN PRN Reason: COUGH Last Admin: 03/25/18 22:28 Dose: 10 ml Insulin Aspart (Novolog Vial Sliding Scale -) 1 vial SQ [facility]; Protocol Nystatin (Nystop Powder -) 1 applic TP QSHIFT [facility] Last Admin: 03/29/18 13:21 Dose: 1 applic Pantoprazole Sodium (Protonix -) 40 mg PO DAILY [facility] Last Admin: 03/29/18 09:09 Dose: 40 mg Polyethylene Glycol (Miralax (For Daily Use) -) 17 gm PO BID [facility] Last Admin: 03/29/18 09:11 Dose: 17 grams Senna (Senna -) 2 tab PO HS PRN PRN Reason: CONSTIPATION Sertraline HCl (Zoloft -) 50 mg PO DAILY [facility] Last Admin: 03/29/18 09:09 Dose: 50 mg Tamsulosin HCl (Flomax -) 0.4 mg PO DAILY@0830 [facility] Last Admin: 03/29/18 08:53 Dose: 0.4 mg - Objective Vital Signs: Vital Signs Temperature 97.5 F L 03/29/18 09:00 Pulse Rate 68 03/29/18 09:00 Respiratory Rate 18 03/29/18 09:00 Blood Pressure 119/60 03/29/18 09:00 O2 Sat by Pulse Oximetry (%) 99 03/28/18 21:00 Neck: Yes: Supple Cardiovascular: Yes: Regular Rate and Rhythm, S1, S2 Respiratory: Yes: Diminished Gastrointestinal: Yes: Normal Bowel Sounds, Soft. No: Tenderness Edema: No Labs: CBC, BMP 03/29/18 06:00 03/29/18 06:00 INR, PTT INR 3.31 (0.83-1.09) H 03/29/18 06:00 Problem List - Problems (1) Incarcerated hernia Code(s): K46.0 - UNSP ABDOMINAL HERNIA WITH OBSTRUCTION, WITHOUT GANGRENE (2) Acute on chronic congestive heart failure Code(s): I50.9 - HEART FAILURE, UNSPECIFIED (3) Acute on chronic renal failure Code(s): N17.9 - ACUTE KIDNEY FAILURE, UNSPECIFIED; N18.9 - CHRONIC KIDNEY DISEASE, UNSPECIFIED Qualifiers: Chronic kidney disease stage: stage 3 (moderate) (4) Afib Code(s): I48.91 - UNSPECIFIED ATRIAL FIBRILLATION Qualifiers: Atrial fibrillation type: persistent Qualified Code(s): I48.1 - Persistent atrial fibrillation (5) Anemia Code(s): D64.9 - ANEMIA, UNSPECIFIED Qualifiers: Anemia type: unspecified type Qualified Code(s): D64.9 - Anemia, unspecified (6) Anticoagulated on Coumadin 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 transplanted heart: [place] heart Associated angina: without angina Qualified Code(s): I25.10 - Atherosclerotic heart disease of [place] coronary artery without angina pectoris (9) HTN (hypertension) Code(s): I10 - ESSENTIAL (PRIMARY) HYPERTENSION Qualifiers: Hypertension type: essential hypertension Qualified Code(s): I10 - Essential (primary) hypertension (10) Hyperlipidemia Code(s): E78.5 - HYPERLIPIDEMIA, UNSPECIFIED Qualifiers: Hyperlipidemia type: pure hypercholesterolemia Qualified Code(s): E78.00 - Pure hypercholesterolemia, unspecified; E78.0 - Pure hypercholesterolemia (11) Pacemaker Code(s): Z95.0 - PRESENCE OF CARDIAC PACEMAKER (12) Pleural effusion Code(s): J90 - PLEURAL EFFUSION, NOT ELSEWHERE CLASSIFIED (13) Pulmonary hypertension Code(s): I27.2 - OTHER SECONDARY PULMONARY HYPERTENSION * DO NOT USE * (14) Sick sinus syndrome Code(s): I49.5 - SICK SINUS SYNDROME (15) Status post coronary artery stent placement Code(s): Z95.5 - PRESENCE OF CORONARY ANGIOPLASTY IMPLANT AND GRAFT (16) Supratherapeutic INR Code(s): R79.1 - ABNORMAL COAGULATION PROFILE (17) Systolic and diastolic CHF, acute on chronic Code(s): I50.43 - ACUTE ON CHRONIC COMBINED SYSTOLIC AND DIASTOLIC HRT FAIL (18) Type 2 diabetes mellitus Code(s): E11.9 - TYPE 2 DIABETES MELLITUS WITHOUT COMPLICATIONS Qualifiers: Diabetes mellitus complication status: with kidney complications Diabetes mellitus complication detail: with chronic kidney disease Chronic kidney disease stage: stage 3 (moderate) Assessment/Plan 1. Incarcerated spigelian hernia without strangulation, for conservative management considering patient's co-morbidities 2. Right pleural effusion with underlying history of breast carcinoma post mastectomy post chemotherapy, s/p pigtail catheter placement and chest tube 3. 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 CAD post PCI/stent angina pectoris 5. Persistent/chronic atrial fibrillation on A/C, [id number] score of 6, with therapeutic INR 6. AV block post PPM 7. Mitral valve and tricuspid valve regurgitation 8. HTN/HCVD 9. DM 10. Hypercholesterolemia 11. Acute on CKD with proteinuria and resolved hyperkalemia PLAN: 1. Coumadin per INR 2. Continue Carvedilol 25 mg BID as tolerated 3. Initiate Entresto once Acute on CKD with hyperkalemia resolves 4. Monitor chest tube output, daily CXR, bronchodilator and O2 Further plans are to follow Chente Gasca MD
[2018-03-29] MEDS: INSULIN SLIDING SCALE (NOVOLOG) 1 VIAL SQ SCH ×2 (16:41→21:24)
[2018-03-30] MEDS: INSULIN SLIDING SCALE (NOVOLOG) 1 VIAL SQ SCH ×4 (06:41→22:28)
[2018-03-30] MEDS: NYSTATIN POWDER 100,000 UNITS/GM - 15 GM TOPICAL POWDER TP SCH ×3 (06:53→22:17)
[2018-03-30 07:30] LABS: INR 3.4 (0.83-1.09); PROTHROMBIN TIME (PATIENT) 40.6 SEC (9.7-13.0)
[2018-03-30] MEDS: PANTOPRAZOLE 40 MG TABLET (FP) PO SCH (09:19)
[2018-03-30] MEDS: TAMSULOSIN HCL 0.4 MG CAP PO SCH (09:19)
[2018-03-30] MEDS: SERTRALINE HCL 50 MG TABLET (FP) PO SCH (09:19)
[2018-03-30] MEDS: CARVEDILOL 25 MG TABLET (FP) PO SCH ×2 (09:20→22:17)
[2018-03-30] MEDS: POLYETHYLENE GLYCOL 3350 119 GM BTL PO SCH ×2 (09:21→22:17)
--- NOTE | 2018-03-30 11:43 | PN ---
Progress Note (short form) - Note Progress Note: coughing less s/p thoracentesis chest tube draining not SOB no abd pain wants to go home Vital Signs - 24 hr 03/29/18 03/29/18 03/29/18 15:52 18:22 21:00 Temperature 97.1 F L Pulse Rate 69 67 Respiratory 18 18 Rate Blood Pressure 102/62 115/70 O2 Sat by Pulse 98 Oximetry (%) 03/29/18 03/30/18 03/30/18 21:16 06:00 10:00 Temperature 98.0 F 97.4 F L Pulse Rate 69 82 86 Respiratory 18 18 18 Rate Blood Pressure 123/50 L 124/65 105/71 O2 Sat by Pulse Oximetry (%) Current Medications Generic Name Dose Route Start Last Admin Trade Name Freq PRN Reason Stop Dose Admin Albuterol/Ipratropium 1 amp 03/19/18 17:38 03/29/18 20:36 Duoneb - NEB 1 amp Q6H PRN Administration SHORTNESS OF BREATH Carvedilol 25 mg 03/19/18 22:00 03/30/18 09:20 Coreg - PO 25 mg BID [facility] Administration Dextrose 4 gm 03/19/18 23:22 03/27/18 12:26 Glucose Tablet - PO 4 gm ONCE PRN Administration BG < 60mg/dl Guaifenesin 10 ml 03/18/18 18:32 03/25/18 22:28 Robitussin - PO 10 ml Q6H PRN Administration COUGH Insulin Aspart 1 vial 03/29/18 16:30 03/30/18 06:41 Novolog Vial Sliding Scale - SQ Not Given ACHS [facility] Protocol Nystatin 1 applic 03/28/18 14:00 03/30/18 06:53 Nystop Powder - TP 1 applic QSHIFT [facility] Administration Pantoprazole Sodium 40 mg 03/20/18 10:00 03/30/18 09:19 Protonix - PO 40 mg DAILY [facility] Administration Polyethylene Glycol 17 gm 03/23/18 11:30 03/30/18 09:21 Miralax (For Daily Use) - PO 17 grams BID [facility] Administration Senna 2 tab 03/23/18 11:16 Senna - PO HS PRN CONSTIPATION Sertraline HCl 50 mg 03/20/18 10:00 03/30/18 09:19 Zoloft - PO 50 mg DAILY [facility] Administration Tamsulosin HCl 0.4 mg 03/20/18 08:30 03/30/18 09:19 Flomax - PO 0.4 mg DAILY@0830 [facility] Administration Laboratory Results - last 24 hr 03/29/18 03/29/18 03/30/18 16:39 21:23 05:58 PT with INR INR POC Glucometer 134 140 75 03/30/18 03/30/18 06:00 11:34 PT with INR 40.60 H INR 3.40 H POC Glucometer 100 Physical Examination Constitutional: Yes: No Distress, comfortable Cardiovascular: Yes: Regular Rate and Rhythm Respiratory: Yes: Diminished - chest tube Gastrointestinal: Yes: soft/ hernia + bs present, NT Edema: No Neuro- a0x3 a/p stable not SOB no JVD dc iv fluids nebs prn hold coumadin today , INR high check CXR monitor for hypoglycemia continue with meds pt does not want any surgical interventions for hernia Problem List - Problems (1) Incarcerated hernia Code(s): K46.0 - UNSP ABDOMINAL HERNIA WITH OBSTRUCTION, WITHOUT GANGRENE (2) Abnormal INR Code(s): R79.1 - ABNORMAL COAGULATION PROFILE (3) Afib Code(s): I48.91 - UNSPECIFIED ATRIAL FIBRILLATION Qualifiers: Atrial fibrillation type: persistent Qualified Code(s): I48.1 - Persistent atrial fibrillation (4) Anemia Code(s): D64.9 - ANEMIA, UNSPECIFIED Qualifiers: Anemia type: unspecified type Qualified Code(s): D64.9 - Anemia, unspecified (5) Anticoagulated on Coumadin Code(s): Z79.01 - SNF (CURRENT) USE OF ANTICOAGULANTS (6) Breast cancer in male Code(s): C50.929 - MALIGNANT NEOPLASM OF [place] SITE OF UNSPECIFIED MALE BREAST (7) Chronic kidney disease (CKD) Code(s): N18.9 - CHRONIC KIDNEY DISEASE, UNSPECIFIED Qualifiers: Chronic kidney disease stage: unspecified stage Qualified Code(s): N18.9 - Chronic kidney disease, unspecified
--- NOTE | 2018-03-30 13:38 | PN ---
Progress Note, Physician Chief Complaint: pulmonary alert,no distress,sob improved. chest tube drainage 600cc - Current Medication List Current Medications: Active Medications Albuterol/Ipratropium (Duoneb -) 1 amp NEB Q6H PRN PRN Reason: SHORTNESS OF BREATH Last Admin: 03/29/18 20:36 Dose: 1 amp Carvedilol (Coreg -) 25 mg PO BID [facility] Last Admin: 03/30/18 09:20 Dose: 25 mg Dextrose (Glucose Tablet -) 4 gm PO ONCE PRN PRN Reason: BG < 60mg/dl Last Admin: 03/27/18 12:26 Dose: 4 gm Guaifenesin (Robitussin -) 10 ml PO Q6H PRN PRN Reason: COUGH Last Admin: 03/25/18 22:28 Dose: 10 ml Insulin Aspart (Novolog Vial Sliding Scale -) 1 vial SQ [facility]; Protocol Last Admin: 03/30/18 11:40 Dose: Not Given Nystatin (Nystop Powder -) 1 applic TP QSHIFT [facility] Last Admin: 03/30/18 06:53 Dose: 1 applic Pantoprazole Sodium (Protonix -) 40 mg PO DAILY [facility] Last Admin: 03/30/18 09:19 Dose: 40 mg Polyethylene Glycol (Miralax (For Daily Use) -) 17 gm PO BID [facility] Last Admin: 03/30/18 09:21 Dose: 17 grams Senna (Senna -) 2 tab PO HS PRN PRN Reason: CONSTIPATION Sertraline HCl (Zoloft -) 50 mg PO DAILY [facility] Last Admin: 03/30/18 09:19 Dose: 50 mg Tamsulosin HCl (Flomax -) 0.4 mg PO DAILY@0830 [facility] Last Admin: 03/30/18 09:19 Dose: 0.4 mg - Objective Vital Signs: Vital Signs Temperature 97.4 F L 03/30/18 10:00 Pulse Rate 86 03/30/18 10:00 Respiratory Rate 18 03/30/18 10:00 Blood Pressure 105/71 03/30/18 10:00 O2 Sat by Pulse Oximetry (%) 98 03/29/18 21:00 Constitutional: Yes: Calm, Thin Eyes: Yes: WNL HENT: Yes: WNL Neck: Yes: WNL Cardiovascular: Yes: Pulse Irregular, S1, S2 Respiratory: Yes: Other (improving bs on r) Gastrointestinal: Yes: Normal Bowel Sounds, Soft Extremities: Yes: WNL Edema: No Labs: CBC, BMP 03/29/18 06:00 INR, PTT INR 3.40 (0.83-1.09) H 03/30/18 06:00 Assessment/Plan Problem List - Problems (1) Incarcerated hernia Code(s): K46.0 - UNSP ABDOMINAL HERNIA WITH OBSTRUCTION, WITHOUT GANGRENE NOT A SURGICAL CANDIDATE (2) Acute on chronic renal failure Code(s): N17.9 - ACUTE KIDNEY FAILURE, UNSPECIFIED; N18.9 - CHRONIC KIDNEY DISEASE, UNSPECIFIED Qualifiers: Chronic kidney disease stage: stage 3 (moderate) (3) Afib Code(s): I48.91 - UNSPECIFIED ATRIAL FIBRILLATION Qualifiers: Atrial fibrillation type: persistent Qualified Code(s): I48.1 - Persistent atrial fibrillation (4) Anemia Code(s): D64.9 - ANEMIA, UNSPECIFIED Qualifiers: Anemia type: unspecified type Qualified Code(s): D64.9 - Anemia, unspecified (5) Anticoagulated on Coumadin Code(s): Z79.01 - SUPERINTENDENT METERS (CURRENT) USE OF ANTICOAGULANTS (6) Coronary artery disease Code(s): I25.10 - ATHSCL HEART DISEASE OF [place] CORONARY ARTERY W/O ANG PCTRS Qualifiers: Coronary Disease-Associated Artery/Lesion type: [place] artery [place] vs. transplanted heart: [place] heart Associated angina: without angina Qualified Code(s): I25.10 - Atherosclerotic heart disease of [place] coronary artery without angina pectoris (7) HTN (hypertension) Code(s): I10 - ESSENTIAL (PRIMARY) HYPERTENSION Qualifiers: Hypertension type: essential hypertension Qualified Code(s): I10 - Essential (primary) hypertension (8) Hyperlipidemia Code(s): E78.5 - HYPERLIPIDEMIA, UNSPECIFIED Qualifiers: Hyperlipidemia type: pure hypercholesterolemia Qualified Code(s): E78.00 - Pure hypercholesterolemia, unspecified; E78.0 - Pure hypercholesterolemia (9) Pacemaker Code(s): Z95.0 - PRESENCE OF CARDIAC PACEMAKER (10) Pleural effusion, right Code(s): J90 - PLEURAL EFFUSION, NOT ELSEWHERE CLASSIFIED (11) Pulmonary hypertension Code(s): I27.2 - OTHER SECONDARY PULMONARY HYPERTENSION * DO NOT USE * (12) Sick sinus syndrome Code(s): I49.5 - SICK SINUS SYNDROME (13) Status post coronary artery stent placement Code(s): Z95.5 - PRESENCE OF CORONARY ANGIOPLASTY IMPLANT AND GRAFT (14) Supratherapeutic INR Code(s): R79.1 - ABNORMAL COAGULATION PROFILE (15) Systolic and diastolic CHF, acute on chronic Code(s): I50.43 - ACUTE ON CHRONIC COMBINED SYSTOLIC AND DIASTOLIC HRT FAIL (16) Type 2 diabetes mellitus Code(s): E11.9 - TYPE 2 DIABETES MELLITUS WITHOUT COMPLICATIONS Qualifiers: Diabetes mellitus complication status: with kidney complications Diabetes mellitus complication detail: with chronic kidney disease Chronic kidney disease stage: stage 3 (moderate) A/P Incarcerated Hernia Right Pleural Effusion S/P chest tube h/o Breast Ca Acute on Chronic Renal Failure LV Systolic Dysfunction CAD Atrial Fibrillation/AV block s/p PPM Mitral Regurgitation HTN DM Supratherapeutic INR improved - inhaled bronchodilators - O2 to keep SpO2 >90% - anticoagulation as per INR - monitor chest tube output DR AKINS
[2018-03-30] MEDS: ALBUTEROL SO4 2.5/IPRATROPIUM 0.5 INH SOL 3 ML VIAL.NEB. NEB PRN (20:48)
[2018-03-30] MEDS: SENNOSIDES 8.6MG TABLET (FP) PO PRN (22:17)
[2018-03-30] MEDS: guaiFENesin 200 MG/10 ML 10 ML UNIT-DOSE CUPS PO PRN (22:22)
[2018-03-31] MEDS: INSULIN SLIDING SCALE (NOVOLOG) 1 VIAL SQ SCH ×4 (06:54→22:15)
[2018-03-31] MEDS: NYSTATIN POWDER 100,000 UNITS/GM - 15 GM TOPICAL POWDER TP SCH ×3 (06:54→22:09)
[2018-03-31] MEDS ORDERED: PT OWN MED DRAWER 7, Y5N ONE ×3 (06:56→14:24)
[2018-03-31] MEDS: DEXTROSE 4 GM TAB.CHEW PO PRN (06:56)
[2018-03-31 07:49] LABS: INR 3.11 (0.83-1.09); PROTHROMBIN TIME (PATIENT) 37.1 SEC (9.7-13.0)
[2018-03-31] MEDS: TAMSULOSIN HCL 0.4 MG CAP PO SCH (09:08)
[2018-03-31] MEDS: CARVEDILOL 25 MG TABLET (FP) PO SCH ×2 (10:17→22:09)
[2018-03-31] MEDS: SERTRALINE HCL 50 MG TABLET (FP) PO SCH (10:17)
[2018-03-31] MEDS: PANTOPRAZOLE 40 MG TABLET (FP) PO SCH (10:17)
[2018-03-31] MEDS: POLYETHYLENE GLYCOL 3350 119 GM BTL PO SCH ×2 (10:20→22:10)
--- NOTE | 2018-03-31 10:44 | PN ---
Progress Note (short form) - Note Progress Note: coughing less s/p thoracentesis chest tube draining not SOB as per RN, during the evening shift around 400 cc of fluid drained Vital Signs - 24 hr 03/30/18 03/30/18 03/30/18 14:45 18:00 21:00 Temperature 97.7 F 97.0 F L Pulse Rate 71 64 Respiratory 18 18 Rate Blood Pressure 103/63 112/60 O2 Sat by Pulse 96 Oximetry (%) 03/30/18 03/31/18 03/31/18 22:00 06:00 10:06 Temperature 97.5 F L 97.3 F L Pulse Rate 82 73 63 Respiratory 18 18 20 Rate Blood Pressure 116/65 110/60 103/47 L O2 Sat by Pulse Oximetry (%) Current Medications Generic Name Dose Route Start Last Admin Trade Name Freq PRN Reason Stop Dose Admin Albuterol/Ipratropium 1 amp 03/19/18 17:38 03/30/18 20:48 Duoneb - NEB 1 amp Q6H PRN Administration SHORTNESS OF BREATH Carvedilol 25 mg 03/19/18 22:00 03/31/18 10:17 Coreg - PO 25 mg BID ALEX Administration Dextrose 4 gm 03/19/18 23:22 03/31/18 06:56 Glucose Tablet - PO 4 gm ONCE PRN Administration BG < 60mg/dl Guaifenesin 10 ml 03/18/18 18:32 03/25/18 22:28 Robitussin - PO 10 ml Q6H PRN Administration COUGH Insulin Aspart 1 vial 03/29/18 16:30 03/31/18 06:54 Novolog Vial Sliding Scale - SQ Not Given ACHS [facility] Protocol Nystatin 1 applic 03/28/18 14:00 03/31/18 06:54 Nystop Powder - TP 1 applic QSHIFT ALEX Administration Pantoprazole Sodium 40 mg 03/20/18 10:00 03/31/18 10:17 Protonix - PO 40 mg DAILY ALEX Administration Polyethylene Glycol 17 gm 03/23/18 11:30 03/31/18 10:20 Miralax (For Daily Use) - PO 17 grams BID ALEX Administration Senna 2 tab 03/23/18 11:16 03/30/18 22:17 Senna - PO 2 tab HS PRN Administration CONSTIPATION Sertraline HCl 50 mg 03/20/18 10:00 03/31/18 10:17 Zoloft - PO 50 mg DAILY ALEX Administration Tamsulosin HCl 0.4 mg 03/20/18 08:30 03/31/18 09:08 Flomax - PO 0.4 mg DAILY@0830 ALEX Administration Laboratory Results - last 24 hr 03/30/18 03/30/18 03/30/18 11:34 16:14 22:26 PT with INR INR POC Glucometer 100 102 97 03/31/18 03/31/18 03/31/18 06:30 06:53 08:14 PT with INR 37.10 H INR 3.11 H POC Glucometer 55 71 Intake & Output 03/28/18 03/29/18 03/30/18 03/31/18 23:59 23:59 23:59 23:59 Intake Total 185 761 8447 Output Total 350 1525 750 200 Balance 315 -545 690 -200 Physical Examination Constitutional: Yes: No Distress, comfortable Cardiovascular: Yes: Regular Rate and Rhythm Respiratory: Yes: Diminished - chest tube Gastrointestinal: Yes: soft/ hernia + bs present, NT Edema: No Neuro- a0x3 a/p stable not SOB no JVD dc iv fluids nebs prn hold coumadin today , INR high check CXR monitor output from chest tube, cannot remove chest tube at this time as he is still having drainage monitor for hypoglycemia continue with meds pt does not want any surgical interventions for hernia Problem List - Problems (1) Incarcerated hernia Code(s): K46.0 - UNSP ABDOMINAL HERNIA WITH OBSTRUCTION, WITHOUT GANGRENE (2) Abnormal INR Code(s): R79.1 - ABNORMAL COAGULATION PROFILE (3) Afib Code(s): I48.91 - UNSPECIFIED ATRIAL FIBRILLATION Qualifiers: Atrial fibrillation type: persistent Qualified Code(s): I48.1 - Persistent atrial fibrillation (4) Anemia Code(s): D64.9 - ANEMIA, UNSPECIFIED Qualifiers: Anemia type: unspecified type Qualified Code(s): D64.9 - Anemia, unspecified (5) Anticoagulated on Coumadin Code(s): Z79.01 - [place] (CURRENT) USE OF ANTICOAGULANTS (6) Breast cancer in male Code(s): C50.929 - MALIGNANT NEOPLASM OF UNSP SITE OF UNSPECIFIED MALE BREAST (7) Chronic kidney disease (CKD) Code(s): N18.9 - CHRONIC KIDNEY DISEASE, UNSPECIFIED Qualifiers: Chronic kidney disease stage: unspecified stage Qualified Code(s): N18.9 - Chronic kidney disease, unspecified
--- NOTE | 2018-03-31 11:53 | PN ---
Progress Note, Physician History of Present Illness: Resting, dyspnea and cough resolved. Right chest tube external catheters and pleurvac removed. - Current Medication List Current Medications: Active Medications Acetaminophen (Tylenol -) 650 mg PO Q6H PRN PRN Reason: MODERATE PAIN Albuterol/Ipratropium (Duoneb -) 1 amp NEB Q6H PRN PRN Reason: SHORTNESS OF BREATH Last Admin: 03/30/18 20:48 Dose: 1 amp Carvedilol (Coreg -) 25 mg PO BID [facility] Last Admin: 03/31/18 10:17 Dose: 25 mg Dextrose (Glucose Tablet -) 4 gm PO ONCE PRN PRN Reason: BG < 60mg/dl Last Admin: 03/31/18 06:56 Dose: 4 gm Guaifenesin (Robitussin -) 10 ml PO Q6H PRN PRN Reason: COUGH Last Admin: 03/25/18 22:28 Dose: 10 ml Insulin Aspart (Novolog Vial Sliding Scale -) 1 vial SQ [facility]; Protocol Last Admin: 03/31/18 06:54 Dose: Not Given Nystatin (Nystop Powder -) 1 applic TP QSHIFT [facility] Last Admin: 03/31/18 06:54 Dose: 1 applic Pantoprazole Sodium (Protonix -) 40 mg PO DAILY [facility] Last Admin: 03/31/18 10:17 Dose: 40 mg Polyethylene Glycol (Miralax (For Daily Use) -) 17 gm PO BID [facility] Last Admin: 03/31/18 10:20 Dose: 17 grams Senna (Senna -) 2 tab PO HS PRN PRN Reason: CONSTIPATION Last Admin: 03/30/18 22:17 Dose: 2 tab Sertraline HCl (Zoloft -) 50 mg PO DAILY [facility] Last Admin: 03/31/18 10:17 Dose: 50 mg Tamsulosin HCl (Flomax -) 0.4 mg PO DAILY@0830 [facility] Last Admin: 03/31/18 09:08 Dose: 0.4 mg - Objective Vital Signs: Vital Signs Temperature 97.3 F L 03/31/18 10:06 Pulse Rate 63 03/31/18 10:06 Respiratory Rate 20 03/31/18 10:06 Blood Pressure 103/47 L 03/31/18 10:06 O2 Sat by Pulse Oximetry (%) 96 03/30/18 21:00 Constitutional: Yes: No Distress, Calm, Thin Neck: Yes: Supple Cardiovascular: Yes: Pulse Irregular, Murmur (2/6 SM) Respiratory: Yes: Regular, Diminished Gastrointestinal: Yes: Soft, Hypoactive Bowel Sounds Edema: No Labs: CBC, BMP 03/29/18 06:00 03/29/18 06:00 INR, PTT INR 3.11 (0.83-1.09) H 03/31/18 06:30 - ....Imaging Chest X-ray: Report Reviewed (Right effusion stable) Problem List - Problems (1) Incarcerated hernia Code(s): K46.0 - UNSP ABDOMINAL HERNIA WITH OBSTRUCTION, WITHOUT GANGRENE (2) Acute on chronic renal failure Code(s): N17.9 - ACUTE KIDNEY FAILURE, UNSPECIFIED; N18.9 - CHRONIC KIDNEY DISEASE, UNSPECIFIED Qualifiers: Chronic kidney disease stage: stage 3 (moderate) (3) Afib Code(s): I48.91 - UNSPECIFIED ATRIAL FIBRILLATION Qualifiers: Atrial fibrillation type: persistent Qualified Code(s): I48.1 - Persistent atrial fibrillation (4) Anemia Code(s): D64.9 - ANEMIA, UNSPECIFIED Qualifiers: Anemia type: unspecified type Qualified Code(s): D64.9 - Anemia, unspecified (5) Anticoagulated on Coumadin Code(s): Z79.01 - [place] (CURRENT) USE OF ANTICOAGULANTS (6) Coronary artery disease Code(s): I25.10 - ATHSCL HEART DISEASE OF [place] CORONARY ARTERY W/O ANG PCTRS Qualifiers: Coronary Disease-Associated Artery/Lesion type: [place] artery [place] vs. transplanted heart: [place] heart Associated angina: without angina Qualified Code(s): I25.10 - Atherosclerotic heart disease of [place] coronary artery without angina pectoris (7) HTN (hypertension) Code(s): I10 - ESSENTIAL (PRIMARY) HYPERTENSION Qualifiers: Hypertension type: essential hypertension Qualified Code(s): I10 - Essential (primary) hypertension (8) Hyperlipidemia Code(s): E78.5 - HYPERLIPIDEMIA, UNSPECIFIED Qualifiers: Hyperlipidemia type: pure hypercholesterolemia Qualified Code(s): E78.00 - Pure hypercholesterolemia, unspecified; E78.0 - Pure hypercholesterolemia (9) Pacemaker Code(s): Z95.0 - PRESENCE OF CARDIAC PACEMAKER (10) Pleural effusion, right Code(s): J90 - PLEURAL EFFUSION, NOT ELSEWHERE CLASSIFIED (11) Pulmonary hypertension Code(s): I27.2 - OTHER SECONDARY PULMONARY HYPERTENSION * DO NOT USE * (12) Sick sinus syndrome Code(s): I49.5 - SICK SINUS SYNDROME (13) Status post coronary artery stent placement Code(s): Z95.5 - PRESENCE OF CORONARY ANGIOPLASTY IMPLANT AND GRAFT (14) Systolic and diastolic CHF, acute on chronic Code(s): I50.43 - ACUTE ON CHRONIC COMBINED SYSTOLIC AND DIASTOLIC HRT FAIL (15) Type 2 diabetes mellitus Code(s): E11.9 - TYPE 2 DIABETES MELLITUS WITHOUT COMPLICATIONS Qualifiers: Diabetes mellitus complication status: with kidney complications Diabetes mellitus complication detail: with chronic kidney disease Chronic kidney disease stage: stage 3 (moderate) Assessment/Plan 02/09/2018 Echo: Normal LV size with severely decreased LV fxn, severe TR, severe pulm HTN, pacer in RV 1. Incarcerated spigelian hernia without strangulation, for conservative management considering patient's co-morbidities 2. Right pleural effusion with underlying history of breast carcinoma post mastectomy post chemotherapy, s/p pigtail catheter placement and chest tube 3. 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 CAD post PCI/stent angina pectoris 5. Persistent/chronic atrial fibrillation on A/C, [id number] score of 6, with supratherapeutic INR 6. AV block post PPM 7. Mitral valve and tricuspid valve regurgitation 8. HTN/HCVD 9. DM 10. Hypercholesterolemia 11. Acute on CKD with proteinuria and hyperkalemia resolving PLAN: 1. Dose coumadin per INR 2. Continue Carvedilol 25 mg BID as tolerated 3. Initiate Entresto 24/26 bid once Acute on CKD with hyperkalemia resolves 4. Chest tube d/lianet, bronchodilator and O2 as needed
[2018-03-31] MEDS: ACETAMINOPHEN 325 MG TABLET (FP) PO PRN ×2 (12:37→22:08)
--- NOTE | 2018-03-31 13:26 | PN ---
Progress Note, Physician History of Present Illness: pulmonary alert feeling better,-sob - Current Medication List Current Medications: Active Medications Acetaminophen (Tylenol -) 650 mg PO Q6H PRN PRN Reason: MODERATE PAIN Last Admin: 03/31/18 12:37 Dose: 650 mg Carvedilol (Coreg -) 25 mg PO BID [facility] Last Admin: 03/31/18 10:17 Dose: 25 mg Dextrose (Glucose Tablet -) 4 gm PO ONCE PRN PRN Reason: BG < 60mg/dl Last Admin: 03/31/18 06:56 Dose: 4 gm Guaifenesin (Robitussin -) 10 ml PO Q6H PRN PRN Reason: COUGH Last Admin: 03/25/18 22:28 Dose: 10 ml Insulin Aspart (Novolog Vial Sliding Scale -) 1 vial SQ [facility]; Protocol Last Admin: 03/31/18 12:07 Dose: Not Given Nystatin (Nystop Powder -) 1 applic TP QSHIFT [facility] Last Admin: 03/31/18 06:54 Dose: 1 applic Pantoprazole Sodium (Protonix -) 40 mg PO DAILY [facility] Last Admin: 03/31/18 10:17 Dose: 40 mg Polyethylene Glycol (Miralax (For Daily Use) -) 17 gm PO BID [facility] Last Admin: 03/31/18 10:20 Dose: 17 grams Senna (Senna -) 2 tab PO HS PRN PRN Reason: CONSTIPATION Last Admin: 03/30/18 22:17 Dose: 2 tab Sertraline HCl (Zoloft -) 50 mg PO DAILY [facility] Last Admin: 03/31/18 10:17 Dose: 50 mg Tamsulosin HCl (Flomax -) 0.4 mg PO DAILY@0830 [facility] Last Admin: 03/31/18 09:08 Dose: 0.4 mg - Objective Vital Signs: Vital Signs Temperature 97.3 F L 03/31/18 10:06 Pulse Rate 63 03/31/18 10:06 Respiratory Rate 20 03/31/18 10:06 Blood Pressure 103/47 L 03/31/18 10:06 O2 Sat by Pulse Oximetry (%) 96 03/30/18 21:00 Constitutional: Yes: Calm, Thin Eyes: Yes: WNL HENT: Yes: WNL Neck: Yes: WNL Cardiovascular: Yes: Pulse Irregular, S1, S2 Respiratory: Yes: Diminished Gastrointestinal: Yes: Normal Bowel Sounds, Soft Extremities: Yes: WNL Edema: No Labs: CBC, BMP 03/29/18 06:00 03/29/18 06:00 INR, PTT INR 3.11 (0.83-1.09) H 03/31/18 06:30 Assessment/Plan Problem List - Problems (1) Incarcerated hernia Code(s): K46.0 - UNSP ABDOMINAL HERNIA WITH OBSTRUCTION, WITHOUT GANGRENE NOT A SURGICAL CANDIDATE (2) Acute on chronic renal failure Code(s): N17.9 - ACUTE KIDNEY FAILURE, UNSPECIFIED; N18.9 - CHRONIC KIDNEY DISEASE, UNSPECIFIED Qualifiers: Chronic kidney disease stage: stage 3 (moderate) (3) Afib Code(s): I48.91 - UNSPECIFIED ATRIAL FIBRILLATION Qualifiers: Atrial fibrillation type: persistent Qualified Code(s): I48.1 - Persistent atrial fibrillation (4) Anemia Code(s): D64.9 - ANEMIA, UNSPECIFIED Qualifiers: Anemia type: unspecified type Qualified Code(s): D64.9 - Anemia, unspecified (5) Anticoagulated on Coumadin Code(s): Z79.01 - [facility] (CURRENT) USE OF ANTICOAGULANTS (6) Coronary artery disease Code(s): I25.10 - ATHSCL HEART DISEASE OF [place] CORONARY ARTERY W/O ANG PCTRS Qualifiers: Coronary Disease-Associated Artery/Lesion type: [place] artery [place] vs. transplanted heart: [place] heart Associated angina: without angina Qualified Code(s): I25.10 - Atherosclerotic heart disease of [place] coronary artery without angina pectoris (7) HTN (hypertension) Code(s): I10 - ESSENTIAL (PRIMARY) HYPERTENSION Qualifiers: Hypertension type: essential hypertension Qualified Code(s): I10 - Essential (primary) hypertension (8) Hyperlipidemia Code(s): E78.5 - HYPERLIPIDEMIA, UNSPECIFIED Qualifiers: Hyperlipidemia type: pure hypercholesterolemia Qualified Code(s): E78.00 - Pure hypercholesterolemia, unspecified; E78.0 - Pure hypercholesterolemia (9) Pacemaker Code(s): Z95.0 - PRESENCE OF CARDIAC PACEMAKER (10) Pleural effusion, right Code(s): J90 - PLEURAL EFFUSION, NOT ELSEWHERE CLASSIFIED (11) Pulmonary hypertension Code(s): I27.2 - OTHER SECONDARY PULMONARY HYPERTENSION * DO NOT USE * (12) Sick sinus syndrome Code(s): I49.5 - SICK SINUS SYNDROME (13) Status post coronary artery stent placement Code(s): Z95.5 - PRESENCE OF CORONARY ANGIOPLASTY IMPLANT AND GRAFT (14) Supratherapeutic INR Code(s): R79.1 - ABNORMAL COAGULATION PROFILE (15) Systolic and diastolic CHF, acute on chronic Code(s): I50.43 - ACUTE ON CHRONIC COMBINED SYSTOLIC AND DIASTOLIC HRT FAIL (16) Type 2 diabetes mellitus Code(s): E11.9 - TYPE 2 DIABETES MELLITUS WITHOUT COMPLICATIONS Qualifiers: Diabetes mellitus complication status: with kidney complications Diabetes mellitus complication detail: with chronic kidney disease Chronic kidney disease stage: stage 3 (moderate) A/P Incarcerated Hernia Right Pleural Effusion S/P chest tube h/o Breast Ca Acute on Chronic Renal Failure LV Systolic Dysfunction CAD Atrial Fibrillation/AV block s/p PPM Mitral Regurgitation HTN DM Supratherapeutic INR improved - inhaled bronchodilators - O2 to keep SpO2 >90% - anticoagulation as per INR - monitor chest tube output DR AKINS
[2018-03-31] MEDS: SENNOSIDES 8.6MG TABLET (FP) PO PRN (22:08)
[2018-04-01] MEDS: ALBUTEROL SO4 2.5/IPRATROPIUM 0.5 INH SOL 3 ML VIAL.NEB. NEB PRN ×4 (01:47→21:05)
[2018-04-01] MEDS: INSULIN SLIDING SCALE (NOVOLOG) 1 VIAL SQ SCH ×4 (06:01→22:03)
[2018-04-01] MEDS: NYSTATIN POWDER 100,000 UNITS/GM - 15 GM TOPICAL POWDER TP SCH ×3 (06:26→22:03)
[2018-04-01 07:18] LABS: ANION GAP 5 MMOL/L (8-16); BLOOD UREA NITROGEN 37 mg/dL (7-18); CALCIUM 7.8 mg/dL (8.5-10.1); CHLORIDE 107 mmol/L (98-107); CO2 27 mmol/L (21-32); CREATININE 1.5 mg/dL (0.55-1.3); GLUCOSE,RANDOM 81 mg/dL (74-106); POTASSIUM 4.1 mmol/L (3.5-5.1); SODIUM 139 mmol/L (136-145)
[2018-04-01 07:27] LABS: INR 2.64 (0.83-1.09); PROTHROMBIN TIME (PATIENT) 31.5 SEC (9.7-13.0)
[2018-04-01] MEDS ORDERED: PT OWN MED DRAWER 7, Y5N ONE (09:36)
[2018-04-01] MEDS: SERTRALINE HCL 50 MG TABLET (FP) PO SCH (09:38)
[2018-04-01] MEDS: PANTOPRAZOLE 40 MG TABLET (FP) PO SCH (09:38)
[2018-04-01] MEDS: TAMSULOSIN HCL 0.4 MG CAP PO SCH (09:38)
[2018-04-01] MEDS: POLYETHYLENE GLYCOL 3350 119 GM BTL PO SCH ×2 (09:39→22:03)
[2018-04-01] MEDS: CARVEDILOL 25 MG TABLET (FP) PO SCH ×2 (09:39→22:03)
--- NOTE | 2018-04-01 11:25 | PN ---
Progress Note (short form) - Note Progress Note: pt seen/ examined chart reviewed. awake/ comfortable denies pain wants to go home all f/u noted f/u cxr -- no change Vital Signs Temp 97.3 F L 04/01/18 09:40 Pulse 76 04/01/18 09:40 Resp 18 04/01/18 09:40 BP 95/45 L 04/01/18 09:40 Pulse Ox 96 03/31/18 21:00 Intake & Output 03/31/18 03/31/18 04/01/18 11:59 23:59 11:59 Intake Total 180 465 Output Total 600 9 0 Balance -420 456 0 Intake: Oral 180 465 Output: Chest Tube Drainage 400 9 0 Right Mediastinal 400 9 0 Urine 200 Void 200 Other: Voiding Method Incontinent Incontinent # Unmeasured Voids Void 2 Bowel Movement No Yes # Bowel Movements 1 Body Mass Index (BMI) 19.9 Active Medications Acetaminophen (Tylenol -) 650 mg PO Q6H PRN PRN Reason: MODERATE PAIN Last Admin: 03/31/18 22:08 Dose: 650 mg Albuterol/Ipratropium (Duoneb -) 1 amp NEB Q6H PRN PRN Reason: SHORTNESS OF BREATH Last Admin: 04/01/18 07:30 Dose: 1 amp Carvedilol (Coreg -) 25 mg PO BID [facility] Last Admin: 04/01/18 09:39 Dose: Not Given Dextrose (Glucose Tablet -) 4 gm PO ONCE PRN PRN Reason: BG < 60mg/dl Last Admin: 03/31/18 06:56 Dose: 4 gm Guaifenesin (Robitussin -) 10 ml PO Q6H PRN PRN Reason: COUGH Last Admin: 03/25/18 22:28 Dose: 10 ml Insulin Aspart (Novolog Vial Sliding Scale -) 1 vial SQ ACHS [facility]; Protocol Last Admin: 04/01/18 06:01 Dose: Not Given Nystatin (Nystop Powder -) 1 applic TP QSHIFT [facility] Last Admin: 04/01/18 06:26 Dose: 1 applic Pantoprazole Sodium (Protonix -) 40 mg PO DAILY [facility] Last Admin: 04/01/18 09:38 Dose: 40 mg Polyethylene Glycol (Miralax (For Daily Use) -) 17 gm PO BID [facility] Last Admin: 02/22/19 09:39 Dose: Not Given Senna (Senna -) 2 tab PO HS PRN PRN Reason: CONSTIPATION Last Admin: 03/31/18 22:08 Dose: 2 tab Sertraline HCl (Zoloft -) 50 mg PO DAILY [facility] Last Admin: 04/01/18 09:38 Dose: 50 mg Tamsulosin HCl (Flomax -) 0.4 mg PO DAILY@0830 [facility] Last Admin: 04/01/18 09:38 Dose: 0.4 mg Warfarin Sodium (Coumadin -) 3 mg PO DAILY@1800 [facility] CBC, BMP 03/29/18 06:00 04/01/18 05:40 INR, PTT INR 2.64 (0.83-1.09) H 04/01/18 05:40 Physical Examination Constitutional: Yes: No Distress, comfortable Cardiovascular: Yes: Regular Rate and Rhythm Respiratory: Yes: Diminished - chest tube + Gastrointestinal: Yes: soft/ hernia + bs present, NT . Edema: No Neuro- alert/awake A/P stable cxr - no change. nebs prn restart coumadin continue with meds pt does not want any surgical interventions for hernia daily oob - chair. pulmonary to follow will follow. Problem List - Problems (1) Incarcerated hernia Code(s): K46.0 - UNSP ABDOMINAL HERNIA WITH OBSTRUCTION, WITHOUT GANGRENE (2) Abnormal INR Code(s): R79.1 - ABNORMAL COAGULATION PROFILE (3) Afib Code(s): I48.91 - UNSPECIFIED ATRIAL FIBRILLATION Qualifiers: Atrial fibrillation type: persistent Qualified Code(s): I48.1 - Persistent atrial fibrillation (4) Anticoagulated on Coumadin Code(s): Z79.01 - [facility]F-WAY (CURRENT) USE OF ANTICOAGULANTS (5) Ascites Code(s): R18.8 - OTHER ASCITES Qualifiers: Ascites type: other type Qualified Code(s): R18.8 - Other ascites (6) Breast cancer in male Code(s): C50.929 - MALIGNANT NEOPLASM OF UNSP SITE OF UNSPECIFIED MALE BREAST (7) Chronic kidney disease (CKD) Code(s): N18.9 - CHRONIC KIDNEY DISEASE, UNSPECIFIED Qualifiers: Chronic kidney disease stage: unspecified stage Qualified Code(s): N18.9 - Chronic kidney disease, unspecified (8) Coronary artery disease Code(s): I25.10 - ATHSCL HEART DISEASE OF [place] CORONARY ARTERY W/O ANG PCTRS Qualifiers: Coronary Disease-Associated Artery/Lesion type: [place] artery [place] vs. transplanted heart: [place] heart Associated angina: without angina Qualified Code(s): I25.10 - Atherosclerotic heart disease of [place] coronary artery without angina pectoris (9) Pacemaker Code(s): Z95.0 - PRESENCE OF CARDIAC PACEMAKER (10) Pleural effusion Code(s): J90 - PLEURAL EFFUSION, NOT ELSEWHERE CLASSIFIED
--- NOTE | 2018-04-01 11:50 | PN ---
Progress Note, Physician History of Present Illness: Resting, dyspnea and cough resolved. Right chest tube external catheters and pleurvac in place. - Current Medication List Current Medications: Active Medications Acetaminophen (Tylenol -) 650 mg PO Q6H PRN PRN Reason: MODERATE PAIN Last Admin: 03/31/18 22:08 Dose: 650 mg Albuterol/Ipratropium (Duoneb -) 1 amp NEB Q6H PRN PRN Reason: SHORTNESS OF BREATH Last Admin: 04/01/18 07:30 Dose: 1 amp Carvedilol (Coreg -) 25 mg PO BID [facility] Last Admin: 04/01/18 09:39 Dose: Not Given Dextrose (Glucose Tablet -) 4 gm PO ONCE PRN PRN Reason: BG < 60mg/dl Last Admin: 03/31/18 06:56 Dose: 4 gm Guaifenesin (Robitussin -) 10 ml PO Q6H PRN PRN Reason: COUGH Last Admin: 03/25/18 22:28 Dose: 10 ml Insulin Aspart (Novolog Vial Sliding Scale -) 1 vial SQ [facility]; Protocol Last Admin: 04/01/18 06:01 Dose: Not Given Nystatin (Nystop Powder -) 1 applic TP QSHIFT [facility] Last Admin: 04/01/18 06:26 Dose: 1 applic Pantoprazole Sodium (Protonix -) 40 mg PO DAILY [facility] Last Admin: 04/01/18 09:38 Dose: 40 mg Polyethylene Glycol (Miralax (For Daily Use) -) 17 gm PO BID [facility] Last Admin: 04/01/18 09:39 Dose: Not Given Senna (Senna -) 2 tab PO HS PRN PRN Reason: CONSTIPATION Last Admin: 03/31/18 22:08 Dose: 2 tab Sertraline HCl (Zoloft -) 50 mg PO DAILY [facility] Last Admin: 04/01/18 09:38 Dose: 50 mg Tamsulosin HCl (Flomax -) 0.4 mg PO DAILY@0830 [facility] Last Admin: 04/01/18 09:38 Dose: 0.4 mg Warfarin Sodium (Coumadin -) 3 mg PO DAILY@1800 [facility] - Objective Vital Signs: Vital Signs Temperature 97.3 F L 04/01/18 09:40 Pulse Rate 76 04/01/18 09:40 Respiratory Rate 18 04/01/18 09:40 Blood Pressure 95/45 L 04/01/18 09:40 O2 Sat by Pulse Oximetry (%) 96 03/31/18 21:00 Constitutional: Yes: No Distress, Calm Neck: Yes: Supple Cardiovascular: Yes: Regular Rate and Rhythm Respiratory: Yes: Regular, Diminished, Other (Right chest tube) Gastrointestinal: Yes: Normal Bowel Sounds, Soft Edema: No Labs: CBC, BMP 03/29/18 06:00 04/01/18 05:40 INR, PTT INR 2.64 (0.83-1.09) H 04/01/18 05:40 - ....Imaging Chest X-ray: Report Reviewed (Right effusion and ATX with chest tube in place) Problem List - Problems (1) Incarcerated hernia Code(s): K46.0 - UNSP ABDOMINAL HERNIA WITH OBSTRUCTION, WITHOUT GANGRENE (2) Acute on chronic renal failure Code(s): N17.9 - ACUTE KIDNEY FAILURE, UNSPECIFIED; N18.9 - CHRONIC KIDNEY DISEASE, UNSPECIFIED Qualifiers: Chronic kidney disease stage: stage 3 (moderate) (3) Afib Code(s): I48.91 - UNSPECIFIED ATRIAL FIBRILLATION Qualifiers: Atrial fibrillation type: persistent Qualified Code(s): I48.1 - Persistent atrial fibrillation (4) Anemia Code(s): D64.9 - ANEMIA, UNSPECIFIED Qualifiers: Anemia type: unspecified type Qualified Code(s): D64.9 - Anemia, unspecified (5) Anticoagulated on Coumadin Code(s): Z79.01 - [employer] (CURRENT) USE OF ANTICOAGULANTS (6) Coronary artery disease Code(s): I25.10 - ATHSCL HEART DISEASE OF [place] CORONARY ARTERY W/O ANG PCTRS Qualifiers: Coronary Disease-Associated Artery/Lesion type: [place] artery [place] vs. transplanted heart: [place] heart Associated angina: without angina Qualified Code(s): I25.10 - Atherosclerotic heart disease of [place] coronary artery without angina pectoris (7) HTN (hypertension) Code(s): I10 - ESSENTIAL (PRIMARY) HYPERTENSION Qualifiers: Hypertension type: essential hypertension Qualified Code(s): I10 - Essential (primary) hypertension (8) Hyperlipidemia Code(s): E78.5 - HYPERLIPIDEMIA, UNSPECIFIED Qualifiers: Hyperlipidemia type: pure hypercholesterolemia Qualified Code(s): E78.00 - Pure hypercholesterolemia, unspecified; E78.0 - Pure hypercholesterolemia (9) Pacemaker Code(s): Z95.0 - PRESENCE OF CARDIAC PACEMAKER (10) Pleural effusion, right Code(s): J90 - PLEURAL EFFUSION, NOT ELSEWHERE CLASSIFIED (11) Pulmonary hypertension Code(s): I27.2 - OTHER SECONDARY PULMONARY HYPERTENSION * DO NOT USE * (12) Sick sinus syndrome Code(s): I49.5 - SICK SINUS SYNDROME (13) Status post coronary artery stent placement Code(s): Z95.5 - PRESENCE OF CORONARY ANGIOPLASTY IMPLANT AND GRAFT (14) Systolic and diastolic CHF, acute on chronic Code(s): I50.43 - ACUTE ON CHRONIC COMBINED SYSTOLIC AND DIASTOLIC HRT FAIL (15) Type 2 diabetes mellitus Code(s): E11.9 - TYPE 2 DIABETES MELLITUS WITHOUT COMPLICATIONS Qualifiers: Diabetes mellitus complication status: with kidney complications Diabetes mellitus complication detail: with chronic kidney disease Chronic kidney disease stage: stage 3 (moderate) Assessment/Plan 02/09/2018 Echo: Normal LV size with severely decreased LV fxn, severe TR, severe pulm HTN, pacer in RV 1. Incarcerated spigelian hernia without strangulation, for conservative management considering patient's co-morbidities 2. Right pleural effusion with underlying history of breast carcinoma post mastectomy post chemotherapy, s/p pigtail catheter placement and chest tube 3. 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 CAD post PCI/stent angina pectoris 5. Persistent/chronic atrial fibrillation on A/C, [id number] score of 6, with therapeutic INR 6. AV block post PPM 7. Mitral valve and tricuspid valve regurgitation 8. HTN/HCVD 9. DM 10. Hypercholesterolemia 11. Acute on CKD with proteinuria and hyperkalemia resolving PLAN: 1. Dose coumadin per INR 2. Continue Carvedilol 25 mg BID as tolerated 3. Initiate Entresto 24/26 bid once Acute on CKD with hyperkalemia resolves to baseline 4. Chest tube management, bronchodilator and O2 as needed 5. Declines hernia repair
--- NOTE | 2018-04-01 15:13 | PN ---
Progress Note (short form) - Note Progress Note: PULMONARY 400 CC out from 03/30 to 03/31 now 9 cc from 03/31 to now CXR pending for today afebrile Gen: NAD at rest Heart: RRR Lung: decreased breath sounds right base/right small bore tube in place Abd: soft, nontender Ext: no edema Active Medications reviewed labs/notes/images/reviewed A/P Incarcerated Hernia Right Pleural Effusion s/p pigtail catheter placement h/o Breast Ca Acute on Chronic Renal Failure LV Systolic Dysfunction CAD Atrial Fibrillation/AV block s/p PPM Mitral Regurgitation HTN DM - monitor chest tube output - daily CXR - f/u pleural studies - inhaled bronchodilators - O2 to keep SpO2 >90% - can resume anticoagulation - may need tube reposition like previous R ZOË ORTEGA
[2018-04-01] MEDS: WARFARIN NA 3 MG TABLET PO SCH (18:03)
[2018-04-01] MEDS: guaiFENesin 200 MG/10 ML 10 ML UNIT-DOSE CUPS PO PRN (22:03)
[2018-04-02] MEDS: NYSTATIN POWDER 100,000 UNITS/GM - 15 GM TOPICAL POWDER TP SCH ×3 (05:50→22:15)
[2018-04-02] MEDS: INSULIN SLIDING SCALE (NOVOLOG) 1 VIAL SQ SCH ×4 (06:01→22:15)
[2018-04-02] MEDS: ALBUTEROL SO4 2.5/IPRATROPIUM 0.5 INH SOL 3 ML VIAL.NEB. NEB PRN ×2 (07:40→21:08)
[2018-04-02] MEDS: TAMSULOSIN HCL 0.4 MG CAP PO SCH (08:51)
[2018-04-02] MEDS: CARVEDILOL 25 MG TABLET (FP) PO SCH ×2 (09:55→22:15)
[2018-04-02] MEDS: POLYETHYLENE GLYCOL 3350 119 GM BTL PO SCH ×2 (09:55→22:15)
[2018-04-02] MEDS: SERTRALINE HCL 50 MG TABLET (FP) PO SCH (09:55)
[2018-04-02] MEDS: PANTOPRAZOLE 40 MG TABLET (FP) PO SCH (09:55)
--- NOTE | 2018-04-02 12:43 | PN ---
Progress Note (short form) - Note Progress Note: no distress chest tube draining -4cc today documented not SOB Vital Signs - 24 hr 04/01/18 04/01/18 04/01/18 14:53 18:00 21:00 Temperature 97.3 F L 97.4 F L Pulse Rate 72 70 Respiratory 22 H 18 20 Rate Blood Pressure 117/59 L 116/63 O2 Sat by Pulse 95 Oximetry (%) 04/01/18 04/02/18 04/02/18 22:00 06:13 09:42 Temperature 98.5 F 97.3 F L Pulse Rate 63 75 73 Respiratory 20 20 24 H Rate Blood Pressure 127/65 101/53 L 127/68 O2 Sat by Pulse Oximetry (%) 04/02/18 10:30 Temperature Pulse Rate Respiratory Rate Blood Pressure O2 Sat by Pulse 100 Oximetry (%) Current Medications Generic Name Dose Route Start Last Admin Trade Name Freq PRN Reason Stop Dose Admin Acetaminophen 650 mg 03/31/18 10:44 03/31/18 22:08 Tylenol - PO 650 mg Q6H PRN Administration MODERATE PAIN Albuterol/Ipratropium 1 amp 04/01/18 01:10 04/02/18 07:40 Duoneb - NEB 1 amp Q6H PRN Administration SHORTNESS OF BREATH Carvedilol 25 mg 03/19/18 22:00 04/02/18 09:55 Coreg - PO 25 mg BID ALEX Administration Dextrose 4 gm 03/19/18 23:22 03/31/18 06:56 Glucose Tablet - PO 4 gm ONCE PRN Administration BG < 60mg/dl Guaifenesin 10 ml 03/18/18 18:32 04/01/18 22:03 Robitussin - PO 10 ml Q6H PRN Administration COUGH Insulin Aspart 1 vial 03/29/18 16:30 04/02/18 11:27 Novolog Vial Sliding Scale - SQ Not Given ACHS [facility] Protocol Nystatin 1 applic 03/28/18 14:00 04/02/18 05:50 Nystop Powder - TP 1 applic QSHIFT ALEX Administration Pantoprazole Sodium 40 mg 03/20/18 10:00 04/02/18 09:55 Protonix - PO 40 mg DAILY ALEX Administration Polyethylene Glycol 17 gm 03/23/18 11:30 04/02/18 09:55 Miralax (For Daily Use) - PO Not Given BID ALEX Senna 2 tab 03/23/18 11:16 03/31/18 22:08 Senna - PO 2 tab HS PRN Administration CONSTIPATION Sertraline HCl 50 mg 03/20/18 10:00 04/02/18 09:55 Zoloft - PO 50 mg DAILY ALEX Administration Tamsulosin HCl 0.4 mg 03/20/18 08:30 04/02/18 08:51 Flomax - PO 0.4 mg DAILY@0830 [facility] Administration Warfarin Sodium 3 mg 04/01/18 18:00 04/01/18 18:03 Coumadin - PO 3 mg DAILY@1800 ALEX Administration Laboratory Results - last 24 hr 04/01/18 04/01/18 04/02/18 17:21 22:01 05:45 POC Glucometer 180 134 79 04/02/18 11:26 POC Glucometer 99 Intake & Output 03/30/18 03/31/18 04/01/18 04/02/18 23:59 23:59 23:59 23:59 Intake Total 1440 645 445 680 Output Total 750 609 2 704 Balance 690 36 443 -24 Physical Examination Constitutional: Yes: No Distress, comfortable Cardiovascular: Yes: Regular Rate and Rhythm Respiratory: Yes: Diminished - chest tube Gastrointestinal: Yes: soft/ hernia + bs present, NT Edema: No Neuro- a0x3 a/p stable not SOB no JVD dc iv fluids nebs prn continue with coumadin check INR CXR noted monitor output from chest tube monitor for hypoglycemia continue with meds pt does not want any surgical interventions for hernia may need to reposition tube-- IR Problem List - Problems (1) Incarcerated hernia Code(s): K46.0 - UNSP ABDOMINAL HERNIA WITH OBSTRUCTION, WITHOUT GANGRENE (2) Abnormal INR Code(s): R79.1 - ABNORMAL COAGULATION PROFILE (3) Afib Code(s): I48.91 - UNSPECIFIED ATRIAL FIBRILLATION Qualifiers: Atrial fibrillation type: persistent Qualified Code(s): I48.1 - Persistent atrial fibrillation (4) Anemia Code(s): D64.9 - ANEMIA, UNSPECIFIED Qualifiers: Anemia type: unspecified type Qualified Code(s): D64.9 - Anemia, unspecified (5) Anticoagulated on Coumadin Code(s): Z79.01 - LONG-TERM (CURRENT) USE OF ANTICOAGULANTS (6) Breast cancer in male Code(s): C50.929 - [facility] S[facility] OF UNSPECIFIED MALE BREAST (7) Chronic kidney disease (CKD) Code(s): N18.9 - CHRONIC KIDNEY DISEASE, UNSPECIFIED Qualifiers: Chronic kidney disease stage: unspecified stage Qualified Code(s): N18.9 - Chronic kidney disease, unspecified
[2018-04-02 15:29] LABS: INR 2.68 (0.83-1.09); PROTHROMBIN TIME (PATIENT) 31.9 SEC (9.7-13.0)
--- NOTE | 2018-04-02 15:35 | PN ---
Progress Note (short form) - Note Progress Note: PULMONARY Little output from tube in 24 hours CXR pending for today afebrile Gen: NAD at rest Heart: RRR Lung: decreased breath sounds right base/right small bore tube in place Abd: soft, nontender Ext: no edema Active Medications reviewed labs/notes/images/reviewed A/P Incarcerated Hernia Right Pleural Effusion s/p pigtail catheter placement h/o Breast Ca Acute on Chronic Renal Failure LV Systolic Dysfunction CAD Atrial Fibrillation/AV block s/p PPM Mitral Regurgitation HTN DM - monitor chest tube output - daily CXR - f/u pleural studies - inhaled bronchodilators - O2 to keep SpO2 >90% - can resume anticoagulation - may need tube reposition like previous R ZOË ORTEGA
--- NOTE | 2018-04-02 15:46 | PN ---
Progress Note, Physician Chief Complaint: Events noted No chest pain or SOB History of Present Illness: Patient was seen and examined. Chart was reviewed Not in distress - Current Medication List Current Medications: Active Medications Acetaminophen (Tylenol -) 650 mg PO Q6H PRN PRN Reason: MODERATE PAIN Last Admin: 03/31/18 22:08 Dose: 650 mg Albuterol/Ipratropium (Duoneb -) 1 amp NEB Q6H PRN PRN Reason: SHORTNESS OF BREATH Last Admin: 04/02/18 07:40 Dose: 1 amp Carvedilol (Coreg -) 25 mg PO BID [facility] Last Admin: 04/02/18 09:55 Dose: 25 mg Dextrose (Glucose Tablet -) 4 gm PO ONCE PRN PRN Reason: BG < 60mg/dl Last Admin: 03/31/18 06:56 Dose: 4 gm Guaifenesin (Robitussin -) 10 ml PO Q6H PRN PRN Reason: COUGH Last Admin: 04/01/18 22:03 Dose: 10 ml Insulin Aspart (Novolog Vial Sliding Scale -) 1 vial SQ [facility]; Protocol Last Admin: 04/02/18 11:27 Dose: Not Given Nystatin (Nystop Powder -) 1 applic TP QSHIFT [facility] Last Admin: 04/02/18 13:41 Dose: 1 applic Pantoprazole Sodium (Protonix -) 40 mg PO DAILY [facility] Last Admin: 04/02/18 09:55 Dose: 40 mg Polyethylene Glycol (Miralax (For Daily Use) -) 17 gm PO BID [facility] Last Admin: 04/02/18 09:55 Dose: Not Given Senna (Senna -) 2 tab PO HS PRN PRN Reason: CONSTIPATION Last Admin: 03/31/18 22:08 Dose: 2 tab Sertraline HCl (Zoloft -) 50 mg PO DAILY [facility] Last Admin: 04/02/18 09:55 Dose: 50 mg Tamsulosin HCl (Flomax -) 0.4 mg PO DAILY@0830 [facility] Last Admin: 04/02/18 08:51 Dose: 0.4 mg Warfarin Sodium (Coumadin -) 3 mg PO DAILY@1800 [facility] Last Admin: 04/01/18 18:03 Dose: 3 mg - Objective Vital Signs: Vital Signs Temperature 97.1 F L 04/02/18 15:19 Pulse Rate 70 04/02/18 15:19 Respiratory Rate 20 04/02/18 15:19 Blood Pressure 91/55 L 04/02/18 15:19 O2 Sat by Pulse Oximetry (%) 100 04/02/18 10:30 Eyes: Yes: PERRL HENT: Yes: Atraumatic Neck: Yes: Supple Cardiovascular: Yes: Regular Rate and Rhythm, S1, S2 Respiratory: Yes: Diminished Gastrointestinal: Yes: Normal Bowel Sounds, Soft. No: Tenderness Edema: No Labs: CBC, BMP 03/29/18 06:00 04/01/18 05:40 INR, PTT INR 2.68 (0.83-1.09) H 04/02/18 14:48 Problem List - Problems (1) Incarcerated hernia Code(s): K46.0 - UNSP ABDOMINAL HERNIA WITH OBSTRUCTION, WITHOUT GANGRENE (2) Acute on chronic congestive heart failure Code(s): I50.9 - HEART FAILURE, UNSPECIFIED (3) Acute on chronic renal failure Code(s): N17.9 - ACUTE KIDNEY FAILURE, UNSPECIFIED; N18.9 - CHRONIC KIDNEY DISEASE, UNSPECIFIED Qualifiers: Chronic kidney disease stage: stage 3 (moderate) (4) Afib Code(s): I48.91 - UNSPECIFIED ATRIAL FIBRILLATION Qualifiers: Atrial fibrillation type: persistent Qualified Code(s): I48.1 - Persistent atrial fibrillation (5) Anemia Code(s): D64.9 - ANEMIA, UNSPECIFIED Qualifiers: Anemia type: unspecified type Qualified Code(s): D64.9 - Anemia, unspecified (6) Anticoagulated on Coumadin Code(s): Z79.01 - LONGTERM (CURRENT) USE OF ANTICOAGULANTS (7) Chronic kidney disease (CKD) Code(s): N18.9 - CHRONIC KIDNEY DISEASE, UNSPECIFIED Qualifiers: Chronic kidney disease stage: unspecified stage Qualified Code(s): N18.9 - Chronic kidney disease, unspecified (8) Coronary artery disease Code(s): I25.10 - ATHSCL HEART DISEASE OF [place] CORONARY ARTERY W/O ANG PCTRS Qualifiers: Coronary Disease-Associated Artery/Lesion type: [place] artery [place] vs. transplanted heart: [place] heart Associated angina: without angina Qualified Code(s): I25.10 - Atherosclerotic heart disease of [place] coronary artery without angina pectoris (9) HTN (hypertension) Code(s): I10 - ESSENTIAL (PRIMARY) HYPERTENSION Qualifiers: Hypertension type: essential hypertension Qualified Code(s): I10 - Essential (primary) hypertension (10) Hyperlipidemia Code(s): E78.5 - HYPERLIPIDEMIA, UNSPECIFIED Qualifiers: Hyperlipidemia type: pure hypercholesterolemia Qualified Code(s): E78.00 - Pure hypercholesterolemia, unspecified; E78.0 - Pure hypercholesterolemia (11) Pacemaker Code(s): Z95.0 - PRESENCE OF CARDIAC PACEMAKER (12) Pleural effusion Code(s): J90 - PLEURAL EFFUSION, NOT ELSEWHERE CLASSIFIED (13) Pulmonary hypertension Code(s): I27.2 - OTHER SECONDARY PULMONARY HYPERTENSION * DO NOT USE * (14) Sick sinus syndrome Code(s): I49.5 - SICK SINUS SYNDROME (15) Status post coronary artery stent placement Code(s): Z95.5 - PRESENCE OF CORONARY ANGIOPLASTY IMPLANT AND GRAFT (16) Supratherapeutic INR Code(s): R79.1 - ABNORMAL COAGULATION PROFILE (17) Systolic and diastolic CHF, acute on chronic Code(s): I50.43 - ACUTE ON CHRONIC COMBINED SYSTOLIC AND DIASTOLIC HRT FAIL (18) Type 2 diabetes mellitus Code(s): E11.9 - TYPE 2 DIABETES MELLITUS WITHOUT COMPLICATIONS Qualifiers: Diabetes mellitus complication status: with kidney complications Diabetes mellitus complication detail: with chronic kidney disease Chronic kidney disease stage: stage 3 (moderate) Assessment/Plan 1. Incarcerated spigelian hernia without strangulation, for conservative management 2. Right pleural effusion with underlying history of breast carcinoma post mastectomy post chemotherapy, s/p pigtail catheter placement and chest tube 3. 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 CAD post PCI/stent angina pectoris 5. Persistent/chronic atrial fibrillation on anticoagulation, [id number] score of 6, with therapeutic INR 6. AV block post PPM 7. Mitral valve and tricuspid valve regurgitation 8. HTN/HCVD 9. DM 10. Hypercholesterolemia 11. Acute on CKD with proteinuria and hyperkalemia resolving PLAN: 1. Dose Coumadin per INR 2. Continue Carvedilol 25 mg BID as tolerated 3. Entresto 24/26 mg BID once acute on CKD with hyperkalemia resolves to baseline 4. Chest tube management (pulmonary input noted), bronchodilator and O2 as needed Further plans are to follow Chente Gasca MD
[2018-04-02] MEDS: WARFARIN NA 3 MG TABLET PO SCH (18:21)
[2018-04-02] MEDS: guaiFENesin 200 MG/10 ML 10 ML UNIT-DOSE CUPS PO PRN (22:15)
[2018-04-03] MEDS: INSULIN SLIDING SCALE (NOVOLOG) 1 VIAL SQ SCH ×2 (06:51→17:27)
[2018-04-03] MEDS: NYSTATIN POWDER 100,000 UNITS/GM - 15 GM TOPICAL POWDER TP SCH ×3 (06:51→22:00)
[2018-04-03] MEDS: TAMSULOSIN HCL 0.4 MG CAP PO SCH (08:23)
[2018-04-03 08:26] LABS: INR 2.37 (0.83-1.09); PROTHROMBIN TIME (PATIENT) 28.2 SEC (9.7-13.0)
--- NOTE | 2018-04-03 09:32 | PN ---
Progress Note (short form) - Note Progress Note: no distress chest tube draining less pt has no c/o pain , SOB Vital Signs - 24 hr 04/02/18 04/02/18 04/02/18 18:00 21:00 22:00 Temperature 97.4 F L Pulse Rate 81 73 Respiratory 20 20 20 Rate Blood Pressure 137/56 L 111/65 O2 Sat by Pulse 97 Oximetry (%) 04/03/18 04/03/18 04/03/18 06:00 09:40 15:37 Temperature 98.4 F 97.0 F L Pulse Rate 67 72 70 Respiratory 20 20 20 Rate Blood Pressure 105/56 L 111/71 97/52 L O2 Sat by Pulse Oximetry (%) Current Medications Generic Name Dose Route Start Last Admin Trade Name Freq PRN Reason Stop Dose Admin Acetaminophen 650 mg 03/31/18 10:44 03/31/18 22:08 Tylenol - PO 650 mg Q6H PRN Administration MODERATE PAIN Albuterol/Ipratropium 1 amp 04/01/18 01:10 04/02/18 21:08 Duoneb - NEB 1 amp Q6H PRN Administration SHORTNESS OF BREATH Carvedilol 25 mg 03/19/18 22:00 04/03/18 09:45 Coreg - PO 25 mg BID ALEX Administration Dextrose 4 gm 03/19/18 23:22 03/31/18 06:56 Glucose Tablet - PO 4 gm ONCE PRN Administration BG < 60mg/dl Guaifenesin 10 ml 03/18/18 18:32 04/02/18 22:15 Robitussin - PO 10 ml Q6H PRN Administration COUGH Insulin Aspart 1 vial 04/03/18 16:30 04/03/18 17:27 Novolog Vial Sliding Scale - SQ Not Given BIDI [facility] Protocol Nystatin 1 applic 03/28/18 14:00 04/03/18 14:50 Nystop Powder - TP 1 applic QSHIFT ALEX Administration Pantoprazole Sodium 40 mg 03/20/18 10:00 04/03/18 09:45 Protonix - PO 40 mg DAILY ALEX Administration Polyethylene Glycol 17 gm 03/23/18 11:30 04/03/18 09:45 Miralax (For Daily Use) - PO 17 grams BID ALEX Administration Senna 2 tab 03/23/18 11:16 03/31/18 22:08 Senna - PO 2 tab HS PRN Administration CONSTIPATION Sertraline HCl 50 mg 03/20/18 10:00 04/03/18 09:45 Zoloft - PO 50 mg DAILY ALEX Administration Tamsulosin HCl 0.4 mg 03/20/18 08:30 04/03/18 08:23 Flomax - PO 0.4 mg DAILY@0830 ALEX Administration Warfarin Sodium 3 mg 04/01/18 18:00 04/02/18 18:21 Coumadin - PO 3 mg DAILY@1800 ALEX Administration Laboratory Results - last 24 hr 04/02/18 04/03/18 04/03/18 22:08 05:49 07:10 PT with INR 28.20 H INR 2.37 H POC Glucometer 103 74 04/03/18 17:26 PT with INR INR POC Glucometer 119 Physical Examination Constitutional: Yes: No Distress, comfortable Cardiovascular: Yes: Regular Rate and Rhythm Respiratory: Yes: Diminished - chest tube Gastrointestinal: Yes: soft/ hernia + bs present, NT Edema: No Neuro- a0x3 a/p stable not SOB no JVD nebs prn continue with coumadin check INR CXR daily monitor output from chest tube monitor for hypoglycemia continue with meds pt does not want any surgical interventions for hernia may need to reposition tube-- IR tomorrow Problem List - Problems (1) Incarcerated hernia Code(s): K46.0 - UNSP ABDOMINAL HERNIA WITH OBSTRUCTION, WITHOUT GANGRENE (2) Abnormal INR Code(s): R79.1 - ABNORMAL COAGULATION PROFILE (3) Afib Code(s): I48.91 - UNSPECIFIED ATRIAL FIBRILLATION Qualifiers: Atrial fibrillation type: persistent Qualified Code(s): I48.1 - Persistent atrial fibrillation (4) Anemia Code(s): D64.9 - ANEMIA, UNSPECIFIED Qualifiers: Anemia type: unspecified type Qualified Code(s): D64.9 - Anemia, unspecified (5) Anticoagulated on Coumadin Code(s): Z79.01 - [place] (CURRENT) USE OF ANTICOAGULANTS (6) Breast cancer in male Code(s): C50.929 - MALIGNANT NEOPLASM OF [place] SITE OF UNSPECIFIED MALE BREAST (7) Chronic kidney disease (CKD) Code(s): N18.9 - CHRONIC KIDNEY DISEASE, UNSPECIFIED Qualifiers: Chronic kidney disease stage: unspecified stage Qualified Code(s): N18.9 - Chronic kidney disease, unspecified
[2018-04-03] MEDS: PANTOPRAZOLE 40 MG TABLET (FP) PO SCH (09:45)
[2018-04-03] MEDS: SERTRALINE HCL 50 MG TABLET (FP) PO SCH (09:45)
[2018-04-03] MEDS: POLYETHYLENE GLYCOL 3350 119 GM BTL PO SCH ×2 (09:45→22:07)
[2018-04-03] MEDS: CARVEDILOL 25 MG TABLET (FP) PO SCH ×2 (09:45→22:07)
--- NOTE | 2018-04-03 12:33 | PN ---
Progress Note (short form) - Note Progress Note: PULMONARY Little output from tube in 24 hours CXR REVIEWED afebrile Gen: NAD at rest Heart: RRR Lung: decreased breath sounds right base/right small bore tube in place Abd: soft, nontender Ext: no edema Active Medications reviewed labs/notes/images/reviewed A/P Incarcerated Hernia Right Pleural Effusion s/p pigtail catheter placement h/o Breast Ca Acute on Chronic Renal Failure LV Systolic Dysfunction CAD Atrial Fibrillation/AV block s/p PPM Mitral Regurgitation HTN DM - monitor chest tube output - daily CXR - f/u pleural studies - inhaled bronchodilators - O2 to keep SpO2 >90% - can resume anticoagulation - likely needs tube reposition like previous R ZOË ORTEGA
[2018-04-03] MEDS: WARFARIN NA 3 MG TABLET PO SCH (18:00)
[2018-04-03] MEDS: ALBUTEROL SO4 2.5/IPRATROPIUM 0.5 INH SOL 3 ML VIAL.NEB. NEB PRN (19:55)
[2018-04-04] MEDS: INSULIN SLIDING SCALE (NOVOLOG) 1 VIAL SQ SCH ×2 (06:31→18:14)
[2018-04-04] MEDS: NYSTATIN POWDER 100,000 UNITS/GM - 15 GM TOPICAL POWDER TP SCH ×3 (06:31→23:42)
[2018-04-04] MEDS: TAMSULOSIN HCL 0.4 MG CAP PO SCH (09:35)
[2018-04-04] MEDS ORDERED: PT OWN MED DRAWER 7, Y5N ONE (10:07)
[2018-04-04] MEDS: SERTRALINE HCL 50 MG TABLET (FP) PO SCH (10:53)
[2018-04-04] MEDS: PANTOPRAZOLE 40 MG TABLET (FP) PO SCH (10:53)
[2018-04-04] MEDS: CARVEDILOL 25 MG TABLET (FP) PO SCH ×2 (10:53→23:41)
[2018-04-04] MEDS: POLYETHYLENE GLYCOL 3350 119 GM BTL PO SCH ×2 (10:54→23:41)
--- NOTE | 2018-04-04 11:32 | PN ---
Progress Note (short form) - Note Progress Note: pt seen/ examined chart reviewed all f/u noted for OR today for adjusting of Chest tube cxr-- Worsening Vital Signs Temp 97.6 F 04/04/18 10:00 Pulse 71 04/04/18 10:00 Resp 19 04/04/18 10:00 BP 105/63 04/04/18 10:00 Pulse Ox 100 04/03/18 21:00 Intake & Output 04/03/18 04/03/18 04/04/18 11:59 23:59 11:59 Intake Total 900 1130 Output Total 650 753 201 Balance 250 377 -201 Intake: Oral 900 1130 Output: Chest Tube Drainage 0 3 1 Right Mediastinal 0 3 1 Urine 650 750 200 Void 650 750 200 Other: Voiding Method Urinal Urinal Bowel Movement No Yes No Active Medications Acetaminophen (Tylenol -) 650 mg PO Q6H PRN PRN Reason: MODERATE PAIN Last Admin: 03/31/18 22:08 Dose: 650 mg Albuterol/Ipratropium (Duoneb -) 1 amp NEB Q6H PRN PRN Reason: SHORTNESS OF BREATH Last Admin: 04/03/18 19:55 Dose: 1 amp Carvedilol (Coreg -) 25 mg PO BID [facility] Last Admin: 04/04/18 10:53 Dose: 25 mg Dextrose (Glucose Tablet -) 4 gm PO ONCE PRN PRN Reason: BG < 60mg/dl Last Admin: 03/31/18 06:56 Dose: 4 gm Guaifenesin (Robitussin -) 10 ml PO Q6H PRN PRN Reason: COUGH Last Admin: 04/02/18 22:15 Dose: 10 ml Insulin Aspart (Novolog Vial Sliding Scale -) 1 vial SQ BIDI [facility]; Protocol Last Admin: 04/04/18 06:31 Dose: Not Given Nystatin (Nystop Powder -) 1 applic TP QSHIFT [facility] Last Admin: 04/04/18 06:31 Dose: 1 applic Pantoprazole Sodium (Protonix -) 40 mg PO DAILY [facility] Last Admin: 04/04/18 10:53 Dose: 40 mg Polyethylene Glycol (Miralax (For Daily Use) -) 17 gm PO BID [facility] Last Admin: 04/04/18 10:54 Dose: Not Given Senna (Senna -) 2 tab PO HS PRN PRN Reason: CONSTIPATION Last Admin: 03/31/18 22:08 Dose: 2 tab Sertraline HCl (Zoloft -) 50 mg PO DAILY [facility] Last Admin: 04/04/18 10:53 Dose: 50 mg Tamsulosin HCl (Flomax -) 0.4 mg PO DAILY@0830 [facility] Last Admin: 04/04/18 09:35 Dose: 0.4 mg Warfarin Sodium (Coumadin -) 3 mg PO DAILY@1800 [facility] Last Admin: 04/03/18 18:00 Dose: 3 mg CBC, BMP 03/29/18 06:00 04/01/18 05:40 INR, PTT INR 2.37 (0.83-1.09) H 04/03/18 07:10 cxr-- worse-- reviewed Physical Examination Constitutional: Yes: No Distress, awake. Cardiovascular: Yes: Regular Rate and Rhythm Respiratory: Yes: Diminished on right side - chest tube + Gastrointestinal: Yes: soft/ hernia + bs present, NT . Edema: No Neuro- alert/awake A/P stable cxr - worse nebs prn restarted coumadin continue with meds daily oob - chair. pulmonary on case for or today will follow. Problem List - Problems (1) Incarcerated hernia Code(s): K46.0 - UNSP ABDOMINAL HERNIA WITH OBSTRUCTION, WITHOUT GANGRENE (2) Abnormal INR Code(s): R79.1 - ABNORMAL COAGULATION PROFILE (3) Afib Code(s): I48.91 - UNSPECIFIED ATRIAL FIBRILLATION Qualifiers: Atrial fibrillation type: persistent Qualified Code(s): I48.1 - Persistent atrial fibrillation (4) Anticoagulated on Coumadin Code(s): Z79.01 - TRANSMISSION MECHANIC (CURRENT) USE OF ANTICOAGULANTS (5) Ascites Code(s): R18.8 - OTHER ASCITES Qualifiers: Ascites type: other type Qualified Code(s): R18.8 - Other ascites (6) Breast cancer in male Code(s): C50.929 - MALIGNANT NEOPLASM OF [place] SITE OF UNSPECIFIED MALE BREAST (7) Chronic kidney disease (CKD) Code(s): N18.9 - CHRONIC KIDNEY DISEASE, UNSPECIFIED Qualifiers: Chronic kidney disease stage: unspecified stage Qualified Code(s): N18.9 - Chronic kidney disease, unspecified (8) Coronary artery disease Code(s): I25.10 - ATHSCL HEART DISEASE OF [place] CORONARY ARTERY W/O ANG PCTRS Qualifiers: Coronary Disease-Associated Artery/Lesion type: [place] artery [place] vs. transplanted heart: [place] heart Associated angina: without angina Qualified Code(s): I25.10 - Atherosclerotic heart disease of [place] coronary artery without angina pectoris (9) Pacemaker Code(s): Z95.0 - PRESENCE OF CARDIAC PACEMAKER (10) Pleural effusion Code(s): J90 - PLEURAL EFFUSION, NOT ELSEWHERE CLASSIFIED
--- NOTE | 2018-04-04 11:44 | PN ---
Progress Note (short form) - Note Progress Note: PULMONARY Chest tube output decreasing. Denies shortness of breath but with persistent cough. Vital Signs Period Temp Pulse Resp BP Sys/Soria Pulse Ox Last 24 Hr 97.0 F-98.6 F 68-76 18-20 97-114/52-76 100 Gen: NAD at rest Heart: RRR Lung: decreased breath sounds right base Abd: soft, nontender Ext: no edema CBC, BMP 03/29/18 06:00 04/01/18 05:40 Active Medications Acetaminophen (Tylenol -) 650 mg PO Q6H PRN PRN Reason: MODERATE PAIN Last Admin: 03/31/18 22:08 Dose: 650 mg Albuterol/Ipratropium (Duoneb -) 1 amp NEB Q6H PRN PRN Reason: SHORTNESS OF BREATH Last Admin: 04/03/18 19:55 Dose: 1 amp Carvedilol (Coreg -) 25 mg PO BID [facility] Last Admin: 04/04/18 10:53 Dose: 25 mg Dextrose (Glucose Tablet -) 4 gm PO ONCE PRN PRN Reason: BG < 60mg/dl Last Admin: 03/31/18 06:56 Dose: 4 gm Guaifenesin (Robitussin -) 10 ml PO Q6H PRN PRN Reason: COUGH Last Admin: 04/02/18 22:15 Dose: 10 ml Insulin Aspart (Novolog Vial Sliding Scale -) 1 vial SQ BIDI [facility]; Protocol Last Admin: 04/04/18 06:31 Dose: Not Given Nystatin (Nystop Powder -) 1 applic TP QSHIFT [facility] Last Admin: 04/04/18 06:31 Dose: 1 applic Pantoprazole Sodium (Protonix -) 40 mg PO DAILY [facility] Last Admin: 04/04/18 10:53 Dose: 40 mg Polyethylene Glycol (Miralax (For Daily Use) -) 17 gm PO BID [facility] Last Admin: 04/04/18 10:54 Dose: Not Given Senna (Senna -) 2 tab PO HS PRN PRN Reason: CONSTIPATION Last Admin: 03/31/18 22:08 Dose: 2 tab Sertraline HCl (Zoloft -) 50 mg PO DAILY [facility] Last Admin: 04/04/18 10:53 Dose: 50 mg Tamsulosin HCl (Flomax -) 0.4 mg PO DAILY@0830 [facility] Last Admin: 02/25/19 09:35 Dose: 0.4 mg Warfarin Sodium (Coumadin -) 3 mg PO DAILY@1800 [facility] Last Admin: 04/03/18 18:00 Dose: 3 mg A/P Incarcerated Hernia Right Pleural Effusion s/p pigtail catheter placement h/o Breast Ca Acute on Chronic Renal Failure LV Systolic Dysfunction CAD Atrial Fibrillation/AV block s/p PPM Mitral Regurgitation HTN DM - for chest tube repositioning - send pleural studies, cytology - monitor chest tube output - inhaled bronchodilators - O2 to keep SpO2 >90% - rate controlled
--- NOTE | 2018-04-04 13:22 | PN ---
Progress Note, Physician History of Present Illness: Resting, dyspnea and cough resolved. Right chest tube with decreased drainage. - Current Medication List Current Medications: Active Medications Acetaminophen (Tylenol -) 650 mg PO Q6H PRN PRN Reason: MODERATE PAIN Last Admin: 03/31/18 22:08 Dose: 650 mg Albuterol/Ipratropium (Duoneb -) 1 amp NEB Q6H PRN PRN Reason: SHORTNESS OF BREATH Last Admin: 04/03/18 19:55 Dose: 1 amp Carvedilol (Coreg -) 25 mg PO BID [facility] Last Admin: 04/04/18 10:53 Dose: 25 mg Dextrose (Glucose Tablet -) 4 gm PO ONCE PRN PRN Reason: BG < 60mg/dl Last Admin: 03/31/18 06:56 Dose: 4 gm Guaifenesin (Robitussin -) 10 ml PO Q6H PRN PRN Reason: COUGH Last Admin: 04/02/18 22:15 Dose: 10 ml Insulin Aspart (Novolog Vial Sliding Scale -) 1 vial SQ BIDI [facility]; Protocol Last Admin: 04/04/18 06:31 Dose: Not Given Nystatin (Nystop Powder -) 1 applic TP QSHIFT [facility] Last Admin: 04/04/18 06:31 Dose: 1 applic Pantoprazole Sodium (Protonix -) 40 mg PO DAILY [facility] Last Admin: 04/04/18 10:53 Dose: 40 mg Polyethylene Glycol (Miralax (For Daily Use) -) 17 gm PO BID [facility] Last Admin: 04/04/18 10:54 Dose: Not Given Senna (Senna -) 2 tab PO HS PRN PRN Reason: CONSTIPATION Last Admin: 03/31/18 22:08 Dose: 2 tab Sertraline HCl (Zoloft -) 50 mg PO DAILY [facility] Last Admin: 04/04/18 10:53 Dose: 50 mg Tamsulosin HCl (Flomax -) 0.4 mg PO DAILY@0830 [facility] Last Admin: 04/04/18 09:35 Dose: 0.4 mg Warfarin Sodium (Coumadin -) 3 mg PO DAILY@1800 [facility] Last Admin: 04/03/18 18:00 Dose: 3 mg - Objective Vital Signs: Vital Signs Temperature 97.6 F 04/04/18 10:00 Pulse Rate 71 04/04/18 10:00 Respiratory Rate 19 04/04/18 10:00 Blood Pressure 105/63 04/04/18 10:00 O2 Sat by Pulse Oximetry (%) 100 04/03/18 21:00 Constitutional: Yes: No Distress, Calm Neck: Yes: Supple Cardiovascular: Yes: Pulse Irregular Respiratory: Yes: Regular, Diminished, Other (Right chest tube in place) Gastrointestinal: Yes: Normal Bowel Sounds, Soft Edema: No Labs: CBC, BMP 03/29/18 06:00 04/01/18 05:40 INR, PTT INR 2.37 (0.83-1.09) H 04/03/18 07:10 - ....Imaging Chest X-ray: Report Reviewed (Right effusion and chest tube) Problem List - Problems (1) Incarcerated hernia Code(s): K46.0 - UNSP ABDOMINAL HERNIA WITH OBSTRUCTION, WITHOUT GANGRENE (2) Acute on chronic renal failure Code(s): N17.9 - ACUTE KIDNEY FAILURE, UNSPECIFIED; N18.9 - CHRONIC KIDNEY DISEASE, UNSPECIFIED Qualifiers: Chronic kidney disease stage: stage 3 (moderate) (3) Afib Code(s): I48.91 - UNSPECIFIED ATRIAL FIBRILLATION Qualifiers: Atrial fibrillation type: persistent Qualified Code(s): I48.1 - Persistent atrial fibrillation (4) Anemia Code(s): D64.9 - ANEMIA, UNSPECIFIED Qualifiers: Anemia type: unspecified type Qualified Code(s): D64.9 - Anemia, unspecified (5) Anticoagulated on Coumadin Code(s): Z79.01 - SHELTER (CURRENT) USE OF ANTICOAGULANTS (6) Coronary artery disease Code(s): I25.10 - ATHSCL HEART DISEASE OF [place] CORONARY ARTERY W/O ANG PCTRS Qualifiers: Coronary Disease-Associated Artery/Lesion type: [place] artery [place] vs. transplanted heart: [place] heart Associated angina: without angina Qualified Code(s): I25.10 - Atherosclerotic heart disease of [place] coronary artery without angina pectoris (7) HTN (hypertension) Code(s): I10 - ESSENTIAL (PRIMARY) HYPERTENSION Qualifiers: Hypertension type: essential hypertension Qualified Code(s): I10 - Essential (primary) hypertension (8) Hyperlipidemia Code(s): E78.5 - HYPERLIPIDEMIA, UNSPECIFIED Qualifiers: Hyperlipidemia type: pure hypercholesterolemia Qualified Code(s): E78.00 - Pure hypercholesterolemia, unspecified; E78.0 - Pure hypercholesterolemia (9) Pacemaker Code(s): Z95.0 - PRESENCE OF CARDIAC PACEMAKER (10) Pleural effusion, right Code(s): J90 - PLEURAL EFFUSION, NOT ELSEWHERE CLASSIFIED (11) Pulmonary hypertension Code(s): I27.2 - OTHER SECONDARY PULMONARY HYPERTENSION * DO NOT USE * (12) Sick sinus syndrome Code(s): I49.5 - SICK SINUS SYNDROME (13) Status post coronary artery stent placement Code(s): Z95.5 - PRESENCE OF CORONARY ANGIOPLASTY IMPLANT AND GRAFT (14) Systolic and diastolic CHF, acute on chronic Code(s): I50.43 - ACUTE ON CHRONIC COMBINED SYSTOLIC AND DIASTOLIC HRT FAIL (15) Type 2 diabetes mellitus Code(s): E11.9 - TYPE 2 DIABETES MELLITUS WITHOUT COMPLICATIONS Qualifiers: Diabetes mellitus complication status: with kidney complications Diabetes mellitus complication detail: with chronic kidney disease Chronic kidney disease stage: stage 3 (moderate) Assessment/Plan 02/09/2018 Echo: Normal LV size with severely decreased LV fxn, severe TR, severe pulm HTN, pacer in RV 1. Incarcerated spigelian hernia without strangulation, for conservative management 2. Right pleural effusion with underlying history of breast carcinoma post mastectomy post chemotherapy, s/p pigtail catheter placement and chest tube 3. 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 CAD post PCI/stent angina pectoris 5. Persistent/chronic atrial fibrillation on anticoagulation, [id number] score of 6, with therapeutic INR 6. AV block post PPM 7. Mitral valve and tricuspid valve regurgitation 8. HTN/HCVD 9. DM 10. Hypercholesterolemia 11. Acute on CKD with proteinuria and hyperkalemia resolving PLAN: 1. Dose Coumadin per INR 2. Continue Carvedilol 25 mg BID as tolerated 3. Resume Entresto 24/26 mg BID as acute on CKD with hyperkalemia resolved to baseline 4. Chest tube repositioning and f/u fluid studies, bronchodilator and O2 as needed
[2018-04-04] MEDS: WARFARIN NA 3 MG TABLET PO SCH (20:05)
[2018-04-04 21:33] LABS: INR 2.31 (0.83-1.09); PROTHROMBIN TIME (PATIENT) 27.5 SEC (9.7-13.0)
[2018-04-04] MEDS: SENNOSIDES 8.6MG TABLET (FP) PO PRN (23:41)
[2018-04-04] MEDS: SACUBITRIL/VALSARTAN 24 MG-26 MG TABLET PO SCH (23:43)
[2018-04-05] MEDS ORDERED: WARFARIN NA 3 MG TABLET PO ONE (03:15)
[2018-04-05] MEDS: NYSTATIN POWDER 100,000 UNITS/GM - 15 GM TOPICAL POWDER TP SCH ×3 (06:39→23:37)
[2018-04-05] MEDS: INSULIN SLIDING SCALE (NOVOLOG) 1 VIAL SQ SCH ×2 (06:44→16:53)
[2018-04-05] MEDS ORDERED: PT OWN MED DRAWER 7, Y5N ONE (09:06)
[2018-04-05] MEDS: TAMSULOSIN HCL 0.4 MG CAP PO SCH (09:10)
[2018-04-05] MEDS: SERTRALINE HCL 50 MG TABLET (FP) PO SCH (09:10)
[2018-04-05] MEDS: POLYETHYLENE GLYCOL 3350 119 GM BTL PO SCH ×2 (09:10→22:54)
[2018-04-05] MEDS: PANTOPRAZOLE 40 MG TABLET (FP) PO SCH (09:10)
[2018-04-05] MEDS: SACUBITRIL/VALSARTAN 24 MG-26 MG TABLET PO SCH ×3 (09:11→23:45)
[2018-04-05] MEDS: CARVEDILOL 25 MG TABLET (FP) PO SCH ×3 (10:01→23:46)
--- NOTE | 2018-04-05 10:44 | PN ---
Progress Note, Physician Chief Complaint: Events noted No chest pain or SOB History of Present Illness: Patient was seen and examined. Chart was reviewed Not in distress - Current Medication List Current Medications: Active Medications Acetaminophen (Tylenol -) 650 mg PO Q6H PRN PRN Reason: MODERATE PAIN Last Admin: 03/31/18 22:08 Dose: 650 mg Albuterol/Ipratropium (Duoneb -) 1 amp NEB Q6H PRN PRN Reason: SHORTNESS OF BREATH Last Admin: 04/03/18 19:55 Dose: 1 amp Carvedilol (Coreg -) 25 mg PO BID [facility] Last Admin: 04/05/18 10:01 Dose: 25 mg Dextrose (Glucose Tablet -) 4 gm PO ONCE PRN PRN Reason: BG < 60mg/dl Last Admin: 03/31/18 06:56 Dose: 4 gm Guaifenesin (Robitussin -) 10 ml PO Q6H PRN PRN Reason: COUGH Last Admin: 04/02/18 22:15 Dose: 10 ml Insulin Aspart (Novolog Vial Sliding Scale -) 1 vial SQ BIDI [facility]; Protocol Last Admin: 04/05/18 06:44 Dose: Not Given Nystatin (Nystop Powder -) 1 applic TP QSHIFT [facility] Last Admin: 04/05/18 06:39 Dose: 1 applic Pantoprazole Sodium (Protonix -) 40 mg PO DAILY [facility] Last Admin: 04/05/18 09:10 Dose: 40 mg Polyethylene Glycol (Miralax (For Daily Use) -) 17 gm PO BID [facility] Last Admin: 04/05/18 09:10 Dose: 17 grams Sacubitril/Valsartan (Entresto 24 Mg-26 Mg Tablet) 1 tab PO BID [facility] Last Admin: 04/05/18 09:11 Dose: 1 tab Senna (Senna -) 2 tab PO HS PRN PRN Reason: CONSTIPATION Last Admin: 04/04/18 23:41 Dose: 2 tab Sertraline HCl (Zoloft -) 50 mg PO DAILY [facility] Last Admin: 04/05/18 09:10 Dose: 50 mg Tamsulosin HCl (Flomax -) 0.4 mg PO DAILY@0830 [facility] Last Admin: 04/05/18 09:10 Dose: 0.4 mg Warfarin Sodium (Coumadin -) 3 mg PO DAILY@1800 [facility] Last Admin: 04/04/18 20:05 Dose: Not Given - Objective Vital Signs: Vital Signs Temperature 98.1 F 04/05/18 09:25 Pulse Rate 69 04/05/18 09:25 Respiratory Rate 19 04/05/18 09:25 Blood Pressure 102/63 04/05/18 09:25 O2 Sat by Pulse Oximetry (%) 100 04/04/18 21:00 Eyes: Yes: PERRL HENT: Yes: Atraumatic Neck: Yes: Supple Cardiovascular: Yes: Regular Rate and Rhythm, S1, S2 Respiratory: Yes: Diminished Gastrointestinal: Yes: Normal Bowel Sounds, Soft. No: Tenderness Edema: No Labs: CBC, BMP 03/29/18 06:00 04/01/18 05:40 INR, PTT INR 2.31 (0.83-1.09) H 04/04/18 21:30 Problem List - Problems (1) Incarcerated hernia Code(s): K46.0 - UNSP ABDOMINAL HERNIA WITH OBSTRUCTION, WITHOUT GANGRENE (2) Acute on chronic congestive heart failure Code(s): I50.9 - HEART FAILURE, UNSPECIFIED (3) Acute on chronic renal failure Code(s): N17.9 - ACUTE KIDNEY FAILURE, UNSPECIFIED; N18.9 - CHRONIC KIDNEY DISEASE, UNSPECIFIED Qualifiers: Chronic kidney disease stage: stage 3 (moderate) (4) Afib Code(s): I48.91 - UNSPECIFIED ATRIAL FIBRILLATION Qualifiers: Atrial fibrillation type: persistent Qualified Code(s): I48.1 - Persistent atrial fibrillation (5) Anemia Code(s): D64.9 - ANEMIA, UNSPECIFIED Qualifiers: Anemia type: unspecified type Qualified Code(s): D64.9 - Anemia, unspecified (6) Anticoagulated on Coumadin Code(s): Z79.01 - SURGERY ASSISTANT (CURRENT) USE OF ANTICOAGULANTS (7) Chronic kidney disease (CKD) Code(s): N18.9 - CHRONIC KIDNEY DISEASE, UNSPECIFIED Qualifiers: Chronic kidney disease stage: unspecified stage Qualified Code(s): N18.9 - Chronic kidney disease, unspecified (8) Coronary artery disease Code(s): I25.10 - ATHSCL HEART DISEASE OF [place] CORONARY ARTERY W/O ANG PCTRS Qualifiers: Coronary Disease-Associated Artery/Lesion type: [place] artery [place] vs. transplanted heart: [place] heart Associated angina: without angina Qualified Code(s): I25.10 - Atherosclerotic heart disease of [place] coronary artery without angina pectoris (9) HTN (hypertension) Code(s): I10 - ESSENTIAL (PRIMARY) HYPERTENSION Qualifiers: Hypertension type: essential hypertension Qualified Code(s): I10 - Essential (primary) hypertension (10) Hyperlipidemia Code(s): E78.5 - HYPERLIPIDEMIA, UNSPECIFIED Qualifiers: Hyperlipidemia type: pure hypercholesterolemia Qualified Code(s): E78.00 - Pure hypercholesterolemia, unspecified; E78.0 - Pure hypercholesterolemia (11) Pacemaker Code(s): Z95.0 - PRESENCE OF CARDIAC PACEMAKER (12) Pleural effusion Code(s): J90 - PLEURAL EFFUSION, NOT ELSEWHERE CLASSIFIED (13) Pulmonary hypertension Code(s): I27.2 - OTHER SECONDARY PULMONARY HYPERTENSION * DO NOT USE * (14) Sick sinus syndrome Code(s): I49.5 - SICK SINUS SYNDROME (15) Status post coronary artery stent placement Code(s): Z95.5 - PRESENCE OF CORONARY ANGIOPLASTY IMPLANT AND GRAFT (16) Supratherapeutic INR Code(s): R79.1 - ABNORMAL COAGULATION PROFILE (17) Systolic and diastolic CHF, acute on chronic Code(s): I50.43 - ACUTE ON CHRONIC COMBINED SYSTOLIC AND DIASTOLIC HRT FAIL (18) Type 2 diabetes mellitus Code(s): E11.9 - TYPE 2 DIABETES MELLITUS WITHOUT COMPLICATIONS Qualifiers: Diabetes mellitus complication status: with kidney complications Diabetes mellitus complication detail: with chronic kidney disease Chronic kidney disease stage: stage 3 (moderate) Assessment/Plan 1. Incarcerated spigelian hernia without strangulation, for conservative management 2. Right pleural effusion with underlying history of breast carcinoma post mastectomy post chemotherapy, s/p pigtail catheter placement and chest tube 3. 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 CAD post PCI/stent angina pectoris 5. Persistent/chronic atrial fibrillation on anticoagulation, [id number] score of 6, with therapeutic INR 6. AV block post PPM 7. Mitral valve and tricuspid valve regurgitation 8. HTN/HCVD 9. DM 10. Hypercholesterolemia 11. Acute on CKD with proteinuria and hyperkalemia resolving PLAN: 1. Dose Coumadin per INR 2. Continue Carvedilol 25 mg BID as tolerated (BP permitting) 3. Entresto 24/26 mg BID once acute on CKD with hyperkalemia resolves to baseline 4. Chest tube management, bronchodilator and O2 as needed Further plans are to follow Chente Gasca MD
--- NOTE | 2018-04-05 11:34 | PN ---
Progress Note (short form) - Note Progress Note: PULMONARY s/p chest tube repositioning. CXR this AM showing small pneumothorax. Vital Signs Period Temp Pulse Resp BP Sys/Soria Pulse Ox Last 24 Hr 98.0 F-98.3 F 49-74 18-20 102-132/56-71 100 Gen: NAD at rest Heart: RRR Lung: decreased breath sounds right base Abd: soft, nontender Ext: no edema CBC, BMP 03/29/18 06:00 04/01/18 05:40 Active Medications Acetaminophen (Tylenol -) 650 mg PO Q6H PRN PRN Reason: MODERATE PAIN Last Admin: 03/31/18 22:08 Dose: 650 mg Albuterol/Ipratropium (Duoneb -) 1 amp NEB Q6H PRN PRN Reason: SHORTNESS OF BREATH Last Admin: 04/03/18 19:55 Dose: 1 amp Carvedilol (Coreg -) 25 mg PO BID [facility] Last Admin: 04/05/18 10:01 Dose: 25 mg Dextrose (Glucose Tablet -) 4 gm PO ONCE PRN PRN Reason: BG < 60mg/dl Last Admin: 03/31/18 06:56 Dose: 4 gm Guaifenesin (Robitussin -) 10 ml PO Q6H PRN PRN Reason: COUGH Last Admin: 04/02/18 22:15 Dose: 10 ml Insulin Aspart (Novolog Vial Sliding Scale -) 1 vial SQ BIDI [facility]; Protocol Last Admin: 04/05/18 06:44 Dose: Not Given Nystatin (Nystop Powder -) 1 applic TP QSHIFT [facility] Last Admin: 04/05/18 06:39 Dose: 1 applic Pantoprazole Sodium (Protonix -) 40 mg PO DAILY [facility] Last Admin: 04/05/18 09:10 Dose: 40 mg Polyethylene Glycol (Miralax (For Daily Use) -) 17 gm PO BID [facility] Last Admin: 04/05/18 09:10 Dose: 17 grams Sacubitril/Valsartan (Entresto 24 Mg-26 Mg Tablet) 1 tab PO BID [facility] Last Admin: 04/05/18 09:11 Dose: 1 tab Senna (Senna -) 2 tab PO HS PRN PRN Reason: CONSTIPATION Last Admin: 04/04/18 23:41 Dose: 2 tab Sertraline HCl (Zoloft -) 50 mg PO DAILY [facility] Last Admin: 04/05/18 09:10 Dose: 50 mg Tamsulosin HCl (Flomax -) 0.4 mg PO DAILY@0830 [facility] Last Admin: 04/05/18 09:10 Dose: 0.4 mg Warfarin Sodium (Coumadin -) 3 mg PO DAILY@1800 [facility] Last Admin: 04/04/18 20:05 Dose: Not Given A/P Incarcerated Hernia Right Pleural Effusion s/p pigtail catheter placement h/o Breast Ca Acute on Chronic Renal Failure LV Systolic Dysfunction CAD Atrial Fibrillation/AV block s/p PPM Mitral Regurgitation HTN DM - would place chest tube to low wall suction - send pleural studies, cytology - monitor chest tube output - inhaled bronchodilators - O2 to keep SpO2 >90% - rate controlled
--- NOTE | 2018-04-05 14:14 | PN ---
Progress Note (short form) - Note Progress Note: no distress chest tube repositioned pt has no c/o pain , SOB Vital Signs - 24 hr 04/04/18 04/04/18 04/04/18 16:25 18:00 21:00 Temperature 98.0 F 98.1 F Pulse Rate 72 49 L Respiratory 19 20 Rate Blood Pressure 116/70 132/71 O2 Sat by Pulse 100 Oximetry (%) 04/04/18 04/05/18 04/05/18 22:00 06:00 09:25 Temperature 98.3 F 98.1 F Pulse Rate 74 67 69 Respiratory 18 18 19 Rate Blood Pressure 116/59 L 105/56 L 102/63 O2 Sat by Pulse Oximetry (%) Current Medications Generic Name Dose Route Start Last Admin Trade Name Freq PRN Reason Stop Dose Admin Acetaminophen 650 mg 03/31/18 10:44 03/31/18 22:08 Tylenol - PO 650 mg Q6H PRN Administration MODERATE PAIN Albuterol/Ipratropium 1 amp 04/01/18 01:10 04/03/18 19:55 Duoneb - NEB 1 amp Q6H PRN Administration SHORTNESS OF BREATH Carvedilol 25 mg 03/19/18 22:00 04/05/18 10:01 Coreg - PO 25 mg BID [facility] Administration Dextrose 4 gm 03/19/18 23:22 03/31/18 06:56 Glucose Tablet - PO 4 gm ONCE PRN Administration BG < 60mg/dl Guaifenesin 10 ml 03/18/18 18:32 04/02/18 22:15 Robitussin - PO 10 ml Q6H PRN Administration COUGH Insulin Aspart 1 vial 04/03/18 16:30 04/05/18 06:44 Novolog Vial Sliding Scale - SQ Not Given BIDI [facility] Protocol Nystatin 1 applic 03/28/18 14:00 04/05/18 06:39 Nystop Powder - TP 1 applic QSHIFT [facility] Administration Pantoprazole Sodium 40 mg 03/20/18 10:00 04/05/18 09:10 Protonix - PO 40 mg DAILY [facility] Administration Polyethylene Glycol 17 gm 03/23/18 11:30 04/05/18 09:10 Miralax (For Daily Use) - PO 17 grams BID [facility] Administration Sacubitril/Valsartan 1 tab 04/04/18 22:00 04/05/18 09:11 Entresto 24 Mg-26 Mg Tablet PO 1 tab BID [facility] Administration Senna 2 tab 03/23/18 11:16 04/04/18 23:41 Senna - PO 2 tab HS PRN Administration CONSTIPATION Sertraline HCl 50 mg 03/20/18 10:00 04/05/18 09:10 Zoloft - PO 50 mg DAILY [facility] Administration Tamsulosin HCl 0.4 mg 03/20/18 08:30 04/05/18 09:10 Flomax - PO 0.4 mg DAILY@0830 [facility] Administration Warfarin Sodium 3 mg 04/01/18 18:00 04/04/18 20:05 Coumadin - PO Not Given DAILY@1800 [facility] Laboratory Results - last 24 hr 04/04/18 04/04/18 04/04/18 18:08 19:30 21:30 PT with INR Cancelled 27.50 H INR Cancelled 2.31 H POC Glucometer 109 04/05/18 06:44 PT with INR INR POC Glucometer 68 Physical Examination Constitutional: Yes: No Distress, comfortable Cardiovascular: Yes: Regular Rate and Rhythm Respiratory: Yes: Diminished - chest tube Gastrointestinal: Yes: soft/ hernia + bs present, NT Edema: No Neuro- a0x3 a/p stable not SOB no JVD nebs prn continue with coumadin check INR CXR daily-- small pneumothorax monitor output from chest tube monitor for hypoglycemia continue with meds pt does not want any surgical interventions for hernia Problem List - Problems (1) Incarcerated hernia Code(s): K46.0 - UNSP ABDOMINAL HERNIA WITH OBSTRUCTION, WITHOUT GANGRENE (2) Abnormal INR Code(s): R79.1 - ABNORMAL COAGULATION PROFILE (3) Afib Code(s): I48.91 - UNSPECIFIED ATRIAL FIBRILLATION Qualifiers: Atrial fibrillation type: persistent Qualified Code(s): I48.1 - Persistent atrial fibrillation (4) Anemia Code(s): D64.9 - ANEMIA, UNSPECIFIED Qualifiers: Anemia type: unspecified type Qualified Code(s): D64.9 - Anemia, unspecified (5) Anticoagulated on Coumadin Code(s): Z79.01 - PENITENTIARY (CURRENT) USE OF ANTICOAGULANTS (6) Breast cancer in male Code(s): C50.929 - MALIGNANT NEOPLASM OF UNSP SITE OF UNSPECIFIED MALE BREAST (7) Chronic kidney disease (CKD) Code(s): N18.9 - CHRONIC KIDNEY DISEASE, UNSPECIFIED Qualifiers: Chronic kidney disease stage: unspecified stage Qualified Code(s): N18.9 - Chronic kidney disease, unspecified
[2018-04-05] MEDS: WARFARIN NA 3 MG TABLET PO SCH (18:53)
[2018-04-05] MEDS: SENNOSIDES 8.6MG TABLET (FP) PO PRN (23:35)
[2018-04-06] MEDS: ALBUTEROL SO4 2.5/IPRATROPIUM 0.5 INH SOL 3 ML VIAL.NEB. NEB PRN (03:16)
[2018-04-06] MEDS: NYSTATIN POWDER 100,000 UNITS/GM - 15 GM TOPICAL POWDER TP SCH ×3 (06:24→23:10)
[2018-04-06] MEDS: INSULIN SLIDING SCALE (NOVOLOG) 1 VIAL SQ SCH ×2 (06:24→16:54)
[2018-04-06] MEDS: DEXTROSE 4 GM TAB.CHEW PO PRN (06:26)
[2018-04-06] MEDS ORDERED: SODIUM CHLORIDE 500 ML IV STA (06:50)
[2018-04-06 07:25] LABS: BASO % 0.3 % (0-2.0); EOS % 0.2 % (0-4.5); HEMOGLOBIN 10.4 GM/dL (11.7-16.9); LYMPH % 8.7 % (8-40); MCH 32.4 pg (25.7-33.7); MCHC 33.6 g/dl (32.0-35.9); MEAN CELL VOLUME 96.3 fl (80-96); MONO % 9.2 % (3.8-10.2); NEUT % 81.6 % (42.8-82.8); PLATELET COUNT 193 K/MM3 (134-434); RBC 3.22 M/mm3 (4.00-5.60); RDW 16.6 % (11.9-15.9); WHITE BLOOD COUNT 7.1 K/mm3 (4.0-10.0)
[2018-04-06 07:50] LABS: INR 3.08 (0.83-1.09); PROTHROMBIN TIME (PATIENT) 36.8 SEC (9.7-13.0)
[2018-04-06 07:56] LABS: ANION GAP 6 MMOL/L (8-16); BLOOD UREA NITROGEN 41 mg/dL (7-18); CALCIUM 8.7 mg/dL (8.5-10.1); CHLORIDE 108 mmol/L (98-107); CO2 28 mmol/L (21-32); CREATININE 1.7 mg/dL (0.55-1.3); POTASSIUM 4.9 mmol/L (3.5-5.1); SODIUM 141 mmol/L (136-145)
[2018-04-06 08:17] LABS: GLUCOSE,RANDOM 49 mg/dL (74-106)
[2018-04-06] MEDS: TAMSULOSIN HCL 0.4 MG CAP PO SCH (08:49)
[2018-04-06] MEDS: CARVEDILOL 25 MG TABLET (FP) PO SCH ×2 (10:24→22:45)
[2018-04-06] MEDS: PANTOPRAZOLE 40 MG TABLET (FP) PO SCH (10:24)
[2018-04-06] MEDS: POLYETHYLENE GLYCOL 3350 119 GM BTL PO SCH ×2 (10:24→22:15)
[2018-04-06] MEDS: SERTRALINE HCL 50 MG TABLET (FP) PO SCH (10:24)
[2018-04-06] MEDS: SACUBITRIL/VALSARTAN 24 MG-26 MG TABLET PO SCH ×2 (10:25→22:45)
[2018-04-06] MEDS ORDERED: PT OWN MED DRAWER 7, Y5N ONE ×3 (10:46→21:07)
[2018-04-06] MEDS: ACETAMINOPHEN 325 MG TABLET (FP) PO PRN (10:50)
--- NOTE | 2018-04-06 12:33 | PN ---
Progress Note (short form) - Note Progress Note: no distress chest tube repositioned pt has no c/o pain , SOB there's no drainage from tube per RN Vital Signs - 24 hr 04/05/18 04/05/18 04/05/18 18:30 21:00 22:00 Temperature 97.7 F Pulse Rate 65 76 Respiratory 18 18 Rate Blood Pressure 93/55 L 84/53 L O2 Sat by Pulse 98 Oximetry (%) 04/06/18 04/06/18 04/06/18 01:00 06:30 09:00 Temperature Pulse Rate 80 81 Respiratory 18 18 20 Rate Blood Pressure 96/53 L 81/43 L O2 Sat by Pulse 96 Oximetry (%) 04/06/18 04/06/18 04/06/18 10:00 14:08 15:42 Temperature 98.6 F 97.4 F L Pulse Rate 74 64 69 Respiratory 18 16 18 Rate Blood Pressure 102/73 166/86 109/67 O2 Sat by Pulse Oximetry (%) Current Medications Generic Name Dose Route Start Last Admin Trade Name Freq PRN Reason Stop Dose Admin Acetaminophen 650 mg 03/31/18 10:44 04/06/18 10:50 Tylenol - PO 650 mg Q6H PRN Administration MODERATE PAIN Albuterol/Ipratropium 1 amp 04/01/18 01:10 04/06/18 03:16 Duoneb - NEB 1 amp Q6H PRN Administration SHORTNESS OF BREATH Carvedilol 25 mg 03/19/18 22:00 04/06/18 10:24 Coreg - PO 25 mg BID [facility] Administration Dextrose 4 gm 03/19/18 23:22 04/06/18 06:26 Glucose Tablet - PO 4 gm ONCE PRN Administration BG < 60mg/dl Guaifenesin 10 ml 03/18/18 18:32 04/02/18 22:15 Robitussin - PO 10 ml Q6H PRN Administration COUGH Insulin Aspart 1 vial 04/03/18 16:30 04/06/18 16:54 Novolog Vial Sliding Scale - SQ Not Given [facility]IDI [facility] Protocol Nystatin 1 applic 03/28/18 14:00 04/06/18 15:44 Nystop Powder - TP 1 applic QSHIFT [facility] Administration Pantoprazole Sodium 40 mg 03/20/18 10:00 04/06/18 10:24 Protonix - PO 40 mg DAILY [facility] Administration Polyethylene Glycol 17 gm 03/23/18 11:30 04/06/18 10:24 Miralax (For Daily Use) - PO 17 grams BID [facility] Administration Sacubitril/Valsartan 1 tab 04/04/18 22:00 04/06/18 10:25 Entresto 24 Mg-26 Mg Tablet PO 1 tab BID [facility] Administration Senna 2 tab 03/23/18 11:16 04/05/18 23:35 Senna - PO 2 tab HS PRN Administration CONSTIPATION Sertraline HCl 50 mg 03/20/18 10:00 04/06/18 10:24 Zoloft - PO 50 mg DAILY [facility] Administration Tamsulosin HCl 0.4 mg 03/20/18 08:30 04/06/18 08:49 Flomax - PO 0.4 mg DAILY@0830 [facility] Administration Warfarin Sodium 3 mg 04/01/18 18:00 04/05/18 18:53 Coumadin - PO 3 mg DAILY@1800 [facility] Administration Laboratory Results - last 24 hr 04/05/18 04/06/18 04/06/18 18:19 06:15 06:20 WBC RBC Hgb Hct MCV MCH MCHC RDW Plt Count MPV Absolute Neuts (auto) Neutrophils % Lymphocytes % Monocytes % Eosinophils % Basophils % Nucleated RBC % PT with INR 36.80 H INR 3.08 H Sodium Potassium Chloride Carbon Dioxide Anion Gap BUN Creatinine Creat Clearance w eGFR POC Glucometer 82 46 Random Glucose Calcium 04/06/18 04/06/18 04/06/18 06:20 06:20 08:01 WBC 7.1 RBC 3.22 L Hgb 10.4 L Hct 31.0 L MCV 96.3 H MCH 32.4 MCHC 33.6 RDW 16.6 H Plt Count 193 D MPV 9.0 Absolute Neuts (auto) 5.8 Neutrophils % 81.6 Lymphocytes % 8.7 Monocytes % 9.2 Eosinophils % 0.2 D Basophils % 0.3 Nucleated RBC % 0 PT with INR INR Sodium 141 Potassium 4.9 Chloride 108 H Carbon Dioxide 28 Anion Gap 6 L BUN 41 H Creatinine 1.7 H Creat Clearance w eGFR 38.88 POC Glucometer 94 Random Glucose 49 L* Calcium 8.7 04/06/18 16:45 WBC RBC Hgb Hct MCV MCH MCHC RDW Plt Count MPV Absolute Neuts (auto) Neutrophils % Lymphocytes % Monocytes % Eosinophils % Basophils % Nucleated RBC % PT with INR INR Sodium Potassium Chloride Carbon Dioxide Anion Gap BUN Creatinine Creat Clearance w eGFR POC Glucometer 124 Random Glucose Calcium Physical Examination Constitutional: Yes: No Distress, comfortable Cardiovascular: Yes: Regular Rate and Rhythm Respiratory: Yes: Diminished - chest tube Gastrointestinal: Yes: soft/ hernia + bs present, NT Edema: No Neuro- a0x3 a/p stable not SOB no JVD nebs prn hold coumadin check INR wspoke with Pulmonary-- to clamp the tube and do CXR tomorrow , may be able to remove it tomorrow monitor output from chest tube monitor for hypoglycemia continue with meds pt does not want any surgical interventions for hernia Problem List - Problems (1) Incarcerated hernia Code(s): K46.0 - UNSP ABDOMINAL HERNIA WITH OBSTRUCTION, WITHOUT GANGRENE (2) Abnormal INR Code(s): R79.1 - ABNORMAL COAGULATION PROFILE (3) Afib Code(s): I48.91 - UNSPECIFIED ATRIAL FIBRILLATION Qualifiers: Atrial fibrillation type: persistent Qualified Code(s): I48.1 - Persistent atrial fibrillation (4) Anemia Code(s): D64.9 - ANEMIA, UNSPECIFIED Qualifiers: Anemia type: unspecified type Qualified Code(s): D64.9 - Anemia, unspecified (5) Anticoagulated on Coumadin Code(s): Z79.01 - CARE HOME (CURRENT) USE OF ANTICOAGULANTS (6) Breast cancer in male Code(s): C50.929 - MALIGNANT NEOPLASM OF [place] SITE OF UNSPECIFIED MALE BREAST (7) Chronic kidney disease (CKD) Code(s): N18.9 - CHRONIC KIDNEY DISEASE, UNSPECIFIED Qualifiers: Chronic kidney disease stage: unspecified stage Qualified Code(s): N18.9 - Chronic kidney disease, unspecified
--- NOTE | 2018-04-06 13:20 | PN ---
Progress Note, Physician History of Present Illness: PULMONARY DROWSY,-RESP DISTRESS,MIN CHEST TUBE DRAINAGE,LIKELY POSITIONAL,STILL HAS SIGNIFICANT R PLEURAL EFFUSION - Current Medication List Current Medications: Active Medications Acetaminophen (Tylenol -) 650 mg PO Q6H PRN PRN Reason: MODERATE PAIN Last Admin: 04/06/18 10:50 Dose: 650 mg Albuterol/Ipratropium (Duoneb -) 1 amp NEB Q6H PRN PRN Reason: SHORTNESS OF BREATH Last Admin: 04/06/18 03:16 Dose: 1 amp Carvedilol (Coreg -) 25 mg PO BID [facility] Last Admin: 04/06/18 10:24 Dose: 25 mg Dextrose (Glucose Tablet -) 4 gm PO ONCE PRN PRN Reason: BG < 60mg/dl Last Admin: 04/06/18 06:26 Dose: 4 gm Guaifenesin (Robitussin -) 10 ml PO Q6H PRN PRN Reason: COUGH Last Admin: 04/02/18 22:15 Dose: 10 ml Insulin Aspart (Novolog Vial Sliding Scale -) 1 vial SQ BIDI [facility]; Protocol Last Admin: 04/06/18 06:24 Dose: Not Given Nystatin (Nystop Powder -) 1 applic TP QSHIFT [facility] Last Admin: 04/06/18 06:24 Dose: 1 applic Pantoprazole Sodium (Protonix -) 40 mg PO DAILY [facility] Last Admin: 04/06/18 10:24 Dose: 40 mg Polyethylene Glycol (Miralax (For Daily Use) -) 17 gm PO BID [facility] Last Admin: 04/06/18 10:24 Dose: 17 grams Sacubitril/Valsartan (Entresto 24 Mg-26 Mg Tablet) 1 tab PO BID [facility] Last Admin: 04/06/18 10:25 Dose: 1 tab Senna (Senna -) 2 tab PO HS PRN PRN Reason: CONSTIPATION Last Admin: 04/05/18 23:35 Dose: 2 tab Sertraline HCl (Zoloft -) 50 mg PO DAILY [facility] Last Admin: 04/06/18 10:24 Dose: 50 mg Tamsulosin HCl (Flomax -) 0.4 mg PO DAILY@0830 [facility] Last Admin: 04/06/18 08:49 Dose: 0.4 mg Warfarin Sodium (Coumadin -) 3 mg PO DAILY@1800 [facility] Last Admin: 04/05/18 18:53 Dose: 3 mg - Objective Vital Signs: Vital Signs Temperature 97.7 F 04/05/18 18:30 Pulse Rate 81 04/06/18 06:30 Respiratory Rate 18 04/06/18 06:30 Blood Pressure 81/43 L 04/06/18 06:30 O2 Sat by Pulse Oximetry (%) 98 04/05/18 21:00 Constitutional: Yes: Calm, Thin Eyes: Yes: WNL HENT: Yes: WNL Neck: Yes: WNL Cardiovascular: Yes: Pulse Irregular, S1, S2 Respiratory: Yes: Diminished Gastrointestinal: Yes: Normal Bowel Sounds, Soft Extremities: Yes: WNL Edema: No Labs: CBC, BMP 04/06/18 06:20 04/06/18 06:20 INR, PTT INR 3.08 (0.83-1.09) H 04/06/18 06:20 Assessment/Plan Problem List - Problems (1) Incarcerated hernia Code(s): K46.0 - UNSP ABDOMINAL HERNIA WITH OBSTRUCTION, WITHOUT GANGRENE NOT A SURGICAL CANDIDATE (2) Acute on chronic renal failure Code(s): N17.9 - ACUTE KIDNEY FAILURE, UNSPECIFIED; N18.9 - CHRONIC KIDNEY DISEASE, UNSPECIFIED Qualifiers: Chronic kidney disease stage: stage 3 (moderate) (3) Afib Code(s): I48.91 - UNSPECIFIED ATRIAL FIBRILLATION Qualifiers: Atrial fibrillation type: persistent Qualified Code(s): I48.1 - Persistent atrial fibrillation (4) Anemia Code(s): D64.9 - ANEMIA, UNSPECIFIED Qualifiers: Anemia type: unspecified type Qualified Code(s): D64.9 - Anemia, unspecified (5) Anticoagulated on Coumadin Code(s): Z79.01 - FDC (CURRENT) USE OF ANTICOAGULANTS (6) Coronary artery disease Code(s): I25.10 - ATHSCL HEART DISEASE OF [place] CORONARY ARTERY W/O ANG PCTRS Qualifiers: Coronary Disease-Associated Artery/Lesion type: [place] artery [place] vs. transplanted heart: [place] heart Associated angina: without angina Qualified Code(s): I25.10 - Atherosclerotic heart disease of [place] coronary artery without angina pectoris (7) HTN (hypertension) Code(s): I10 - ESSENTIAL (PRIMARY) HYPERTENSION Qualifiers: Hypertension type: essential hypertension Qualified Code(s): I10 - Essential (primary) hypertension (8) Hyperlipidemia Code(s): E78.5 - HYPERLIPIDEMIA, UNSPECIFIED Qualifiers: Hyperlipidemia type: pure hypercholesterolemia Qualified Code(s): E78.00 - Pure hypercholesterolemia, unspecified; E78.0 - Pure hypercholesterolemia (9) Pacemaker Code(s): Z95.0 - PRESENCE OF CARDIAC PACEMAKER (10) Pleural effusion, right Code(s): J90 - PLEURAL EFFUSION, NOT ELSEWHERE CLASSIFIED (11) Pulmonary hypertension Code(s): I27.2 - OTHER SECONDARY PULMONARY HYPERTENSION * DO NOT USE * (12) Sick sinus syndrome Code(s): I49.5 - SICK SINUS SYNDROME (13) Status post coronary artery stent placement Code(s): Z95.5 - PRESENCE OF CORONARY ANGIOPLASTY IMPLANT AND GRAFT (14) Supratherapeutic INR Code(s): R79.1 - ABNORMAL COAGULATION PROFILE (15) Systolic and diastolic CHF, acute on chronic Code(s): I50.43 - ACUTE ON CHRONIC COMBINED SYSTOLIC AND DIASTOLIC HRT FAIL (16) Type 2 diabetes mellitus Code(s): E11.9 - TYPE 2 DIABETES MELLITUS WITHOUT COMPLICATIONS Qualifiers: Diabetes mellitus complication status: with kidney complications Diabetes mellitus complication detail: with chronic kidney disease Chronic kidney disease stage: stage 3 (moderate) A/P Incarcerated Hernia Right Pleural Effusion S/P chest tube h/o Breast Ca Acute on Chronic Renal Failure LV Systolic Dysfunction CAD Atrial Fibrillation/AV block s/p PPM Mitral Regurgitation HTN DM Supratherapeutic INR - inhaled bronchodilators - O2 to keep SpO2 >90% - anticoagulation as per INR - consider replacing chest tube but will require correcting INR DR AKINS
--- NOTE | 2018-04-06 16:41 | PN ---
Progress Note, Physician History of Present Illness: Resting, dyspnea and cough resolved. Right chest tube with decreased drainage. - Current Medication List Current Medications: Active Medications Acetaminophen (Tylenol -) 650 mg PO Q6H PRN PRN Reason: MODERATE PAIN Last Admin: 04/06/18 10:50 Dose: 650 mg Albuterol/Ipratropium (Duoneb -) 1 amp NEB Q6H PRN PRN Reason: SHORTNESS OF BREATH Last Admin: 04/06/18 03:16 Dose: 1 amp Carvedilol (Coreg -) 25 mg PO BID [facility] Last Admin: 04/06/18 10:24 Dose: 25 mg Dextrose (Glucose Tablet -) 4 gm PO ONCE PRN PRN Reason: BG < 60mg/dl Last Admin: 04/06/18 06:26 Dose: 4 gm Guaifenesin (Robitussin -) 10 ml PO Q6H PRN PRN Reason: COUGH Last Admin: 04/02/18 22:15 Dose: 10 ml Insulin Aspart (Novolog Vial Sliding Scale -) 1 vial SQ BIDI [facility]; Protocol Last Admin: 04/06/18 06:24 Dose: Not Given Nystatin (Nystop Powder -) 1 applic TP QSHIFT [facility] Last Admin: 04/06/18 15:44 Dose: 1 applic Pantoprazole Sodium (Protonix -) 40 mg PO DAILY [facility] Last Admin: 04/06/18 10:24 Dose: 40 mg Polyethylene Glycol (Miralax (For Daily Use) -) 17 gm PO BID [facility] Last Admin: 04/06/18 10:24 Dose: 17 grams Sacubitril/Valsartan (Entresto 24 Mg-26 Mg Tablet) 1 tab PO BID [facility] Last Admin: 04/06/18 10:25 Dose: 1 tab Senna (Senna -) 2 tab PO HS PRN PRN Reason: CONSTIPATION Last Admin: 04/05/18 23:35 Dose: 2 tab Sertraline HCl (Zoloft -) 50 mg PO DAILY [facility] Last Admin: 04/06/18 10:24 Dose: 50 mg Tamsulosin HCl (Flomax -) 0.4 mg PO DAILY@0830 [facility] Last Admin: 04/06/18 08:49 Dose: 0.4 mg Warfarin Sodium (Coumadin -) 3 mg PO DAILY@1800 [facility] Last Admin: 04/05/18 18:53 Dose: 3 mg - Objective Vital Signs: Vital Signs Temperature 97.4 F L 04/06/18 15:42 Pulse Rate 69 04/06/18 15:42 Respiratory Rate 18 04/06/18 15:42 Blood Pressure 109/67 04/06/18 15:42 O2 Sat by Pulse Oximetry (%) 96 04/06/18 09:00 Constitutional: Yes: No Distress, Calm, Thin Neck: Yes: Supple Cardiovascular: Yes: Regular Rate and Rhythm Respiratory: Yes: Regular, Diminished, Other (Rt chest tube in place) Gastrointestinal: Yes: Normal Bowel Sounds, Soft Edema: No Labs: CBC, BMP 04/06/18 06:20 04/06/18 06:20 INR, PTT INR 3.08 (0.83-1.09) H 04/06/18 06:20 - ....Imaging Chest X-ray: Report Reviewed (Rt PTX and chest tube in place) Problem List - Problems (1) Incarcerated hernia Code(s): K46.0 - UNSP ABDOMINAL HERNIA WITH OBSTRUCTION, WITHOUT GANGRENE (2) Acute on chronic renal failure Code(s): N17.9 - ACUTE KIDNEY FAILURE, UNSPECIFIED; N18.9 - CHRONIC KIDNEY DISEASE, UNSPECIFIED Qualifiers: Chronic kidney disease stage: stage 3 (moderate) (3) Afib Code(s): I48.91 - UNSPECIFIED ATRIAL FIBRILLATION Qualifiers: Atrial fibrillation type: persistent Qualified Code(s): I48.1 - Persistent atrial fibrillation (4) Anemia Code(s): D64.9 - ANEMIA, UNSPECIFIED Qualifiers: Anemia type: unspecified type Qualified Code(s): D64.9 - Anemia, unspecified (5) Anticoagulated on Coumadin 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 transplanted heart: [place] heart Associated angina: without angina Qualified Code(s): I25.10 - Atherosclerotic heart disease of [place] coronary artery without angina pectoris (7) HTN (hypertension) Code(s): I10 - ESSENTIAL (PRIMARY) HYPERTENSION Qualifiers: Hypertension type: essential hypertension Qualified Code(s): I10 - Essential (primary) hypertension (8) Hyperlipidemia Code(s): E78.5 - HYPERLIPIDEMIA, UNSPECIFIED Qualifiers: Hyperlipidemia type: pure hypercholesterolemia Qualified Code(s): E78.00 - Pure hypercholesterolemia, unspecified; E78.0 - Pure hypercholesterolemia (9) Pacemaker Code(s): Z95.0 - PRESENCE OF CARDIAC PACEMAKER (10) Pleural effusion, right Code(s): J90 - PLEURAL EFFUSION, NOT ELSEWHERE CLASSIFIED (11) Pulmonary hypertension Code(s): I27.2 - OTHER SECONDARY PULMONARY HYPERTENSION * DO NOT USE * (12) Sick sinus syndrome Code(s): I49.5 - SICK SINUS SYNDROME (13) Status post coronary artery stent placement Code(s): Z95.5 - PRESENCE OF CORONARY ANGIOPLASTY IMPLANT AND GRAFT (14) Systolic and diastolic CHF, acute on chronic Code(s): I50.43 - ACUTE ON CHRONIC COMBINED SYSTOLIC AND DIASTOLIC HRT FAIL (15) Type 2 diabetes mellitus Code(s): E11.9 - TYPE 2 DIABETES MELLITUS WITHOUT COMPLICATIONS Qualifiers: Diabetes mellitus complication status: with kidney complications Diabetes mellitus complication detail: with chronic kidney disease Chronic kidney disease stage: stage 3 (moderate) Assessment/Plan 02/09/2018 Echo: Normal LV size with severely decreased LV fxn, severe TR, severe pulm HTN, pacer in RV 1. Incarcerated spigelian hernia without strangulation, for conservative management 2. Right pleural effusion with underlying history of breast carcinoma post mastectomy post chemotherapy, s/p pigtail catheter placement and chest tube 3. 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 CAD post PCI/stent angina pectoris 5. Persistent/chronic atrial fibrillation on anticoagulation, [id number] score of 6, with therapeutic INR 6. AV block post PPM 7. Mitral valve and tricuspid valve regurgitation 8. HTN/HCVD 9. DM 10. Hypercholesterolemia 11. Acute on CKD with proteinuria and hyperkalemia resolving PLAN: 1. Dose Coumadin per INR 2. Continue Carvedilol 25 mg BID as tolerated (BP permitting) 3. Entresto 24/26 mg BID once acute on CKD with hyperkalemia resolves to baseline 4. Chest tube management, bronchodilator and O2 as needed
[2018-04-06] MEDS: MIRTAZAPINE 15 MG TABLET (FP) PO SCH (22:15)
[2018-04-07] MEDS: SENNOSIDES 8.6MG TABLET (FP) PO PRN (00:08)
[2018-04-07] MEDS: NYSTATIN POWDER 100,000 UNITS/GM - 15 GM TOPICAL POWDER TP SCH ×3 (06:09→22:21)
[2018-04-07] MEDS: INSULIN SLIDING SCALE (NOVOLOG) 1 VIAL SQ SCH ×2 (06:24→16:56)
[2018-04-07 08:21] LABS: PROTHROMBIN TIME (PATIENT) 55.7 SEC (9.7-13.0)
[2018-04-07 08:32] LABS: INR 4.65 (0.83-1.09)
[2018-04-07] MEDS ORDERED: PT OWN MED DRAWER 7, Y5N ONE (08:34)
[2018-04-07] MEDS: TAMSULOSIN HCL 0.4 MG CAP PO SCH (09:04)
[2018-04-07] MEDS: CARVEDILOL 25 MG TABLET (FP) PO SCH ×2 (10:05→22:21)
[2018-04-07] MEDS: SERTRALINE HCL 25 MG TABLET (FP) PO SCH (10:06)
[2018-04-07] MEDS: PANTOPRAZOLE 40 MG TABLET (FP) PO SCH (10:06)
[2018-04-07] MEDS: SACUBITRIL/VALSARTAN 24 MG-26 MG TABLET PO SCH ×2 (10:07→22:21)
[2018-04-07] MEDS: POLYETHYLENE GLYCOL 3350 119 GM BTL PO SCH ×2 (10:09→22:21)
--- NOTE | 2018-04-07 10:52 | PN ---
Progress Note (short form) - Note Progress Note: PULMONARY Minimal drainage from chest tube. CXR still with significant effusion but pt denies shortness of breath. Vital Signs Period Temp Pulse Resp BP Sys/Soria Pulse Ox Last 24 Hr 97.3 F-98.6 F 64-76 16-18 82-166/51-86 96 Intake & Output 04/04/18 04/05/18 04/06/18 04/07/18 23:59 23:59 23:59 23:59 Intake Total 927 934 3612 Output Total 901 470 600 0 Balance -141 130 600 0 Gen: NAD at rest Heart: RRR Lung: decreased breath sounds right base Abd: soft, nontender Ext: no edema CBC, BMP 04/06/18 06:20 04/06/18 06:20 Active Medications Acetaminophen (Tylenol -) 650 mg PO Q6H PRN PRN Reason: MODERATE PAIN Last Admin: 04/06/18 10:50 Dose: 650 mg Albuterol/Ipratropium (Duoneb -) 1 amp NEB Q6H PRN PRN Reason: SHORTNESS OF BREATH Last Admin: 04/06/18 03:16 Dose: 1 amp Carvedilol (Coreg -) 25 mg PO BID [facility] Last Admin: 04/07/18 10:05 Dose: Not Given Dextrose (Glucose Tablet -) 4 gm PO ONCE PRN PRN Reason: BG < 60mg/dl Last Admin: 04/06/18 06:26 Dose: 4 gm Guaifenesin (Robitussin -) 10 ml PO Q6H PRN PRN Reason: COUGH Last Admin: 04/02/18 22:15 Dose: 10 ml Insulin Aspart (Novolog Vial Sliding Scale -) 1 vial SQ BIDI [facility]; Protocol Last Admin: 04/07/18 06:24 Dose: Not Given Mirtazapine (Remeron -) 7.5 mg PO HS [facility] Last Admin: 04/06/18 22:15 Dose: Not Given Nystatin (Nystop Powder -) 1 applic TP QSHIFT [facility] Last Admin: 04/07/18 06:09 Dose: 1 applic Pantoprazole Sodium (Protonix -) 40 mg PO DAILY [facility] Last Admin: 04/07/18 10:06 Dose: 40 mg Polyethylene Glycol (Miralax (For Daily Use) -) 17 gm PO BID [facility] Last Admin: 04/07/18 10:09 Dose: Not Given Sacubitril/Valsartan (Entresto 24 Mg-26 Mg Tablet) 1 tab PO BID [facility] Last Admin: 04/07/18 10:07 Dose: 1 tab Senna (Senna -) 2 tab PO HS PRN PRN Reason: CONSTIPATION Last Admin: 04/07/18 00:08 Dose: 2 tab Sertraline HCl (Zoloft -) 25 mg PO DAILY [facility] Last Admin: 04/07/18 10:06 Dose: 25 mg Tamsulosin HCl (Flomax -) 0.4 mg PO DAILY@0830 [facility] Last Admin: 04/07/18 09:04 Dose: 0.4 mg A/P Incarcerated Hernia Right Pleural Effusion s/p pigtail catheter placement h/o Breast Ca Acute on Chronic Renal Failure LV Systolic Dysfunction CAD Atrial Fibrillation/AV block s/p PPM Mitral Regurgitation HTN DM - will ask thoracic surgery for their opinion but favor conservative treatment as effusion is transudative and pt asymptomatic and with multiple co-morbidities - monitor chest tube output - consider d/c chest tube if minimal output - inhaled bronchodilators - O2 to keep SpO2 >90% - rate controlled
--- NOTE | 2018-04-07 10:59 | PN ---
Progress Note, Physician History of Present Illness: Resting, dyspnea and cough resolved. Right chest tube with decreased drainage. - Current Medication List Current Medications: Active Medications Acetaminophen (Tylenol -) 650 mg PO Q6H PRN PRN Reason: MODERATE PAIN Last Admin: 04/06/18 10:50 Dose: 650 mg Albuterol/Ipratropium (Duoneb -) 1 amp NEB Q6H PRN PRN Reason: SHORTNESS OF BREATH Last Admin: 04/06/18 03:16 Dose: 1 amp Carvedilol (Coreg -) 25 mg PO BID [facility] Last Admin: 04/07/18 10:05 Dose: Not Given Dextrose (Glucose Tablet -) 4 gm PO ONCE PRN PRN Reason: BG < 60mg/dl Last Admin: 04/06/18 06:26 Dose: 4 gm Guaifenesin (Robitussin -) 10 ml PO Q6H PRN PRN Reason: COUGH Last Admin: 04/02/18 22:15 Dose: 10 ml Insulin Aspart (Novolog Vial Sliding Scale -) 1 vial SQ BIDI [facility]; Protocol Last Admin: 04/07/18 06:24 Dose: Not Given Mirtazapine (Remeron -) 7.5 mg PO HS [facility] Last Admin: 04/06/18 22:15 Dose: Not Given Nystatin (Nystop Powder -) 1 applic TP QSHIFT [facility] Last Admin: 04/07/18 06:09 Dose: 1 applic Pantoprazole Sodium (Protonix -) 40 mg PO DAILY [facility] Last Admin: 04/07/18 10:06 Dose: 40 mg Polyethylene Glycol (Miralax (For Daily Use) -) 17 gm PO BID [facility] Last Admin: 04/07/18 10:09 Dose: Not Given Sacubitril/Valsartan (Entresto 24 Mg-26 Mg Tablet) 1 tab PO BID [facility] Last Admin: 04/07/18 10:07 Dose: 1 tab Senna (Senna -) 2 tab PO HS PRN PRN Reason: CONSTIPATION Last Admin: 04/07/18 00:08 Dose: 2 tab Sertraline HCl (Zoloft -) 25 mg PO DAILY [facility] Last Admin: 04/07/18 10:06 Dose: 25 mg Tamsulosin HCl (Flomax -) 0.4 mg PO DAILY@0830 [facility] Last Admin: 04/07/18 09:04 Dose: 0.4 mg - Objective Vital Signs: Vital Signs Temperature 98 F 04/07/18 10:00 Pulse Rate 68 04/07/18 10:00 Respiratory Rate 18 04/07/18 10:00 Blood Pressure 85/51 L 04/07/18 10:00 O2 Sat by Pulse Oximetry (%) 96 04/06/18 21:00 Constitutional: Yes: No Distress, Calm, Thin Neck: Yes: Supple Cardiovascular: Yes: Regular Rate and Rhythm Respiratory: Yes: Regular, Diminished Gastrointestinal: Yes: Soft, Hypoactive Bowel Sounds Edema: No Labs: CBC, BMP 04/06/18 06:20 04/06/18 06:20 INR, PTT INR 4.65 (0.83-1.09) H* 04/07/18 06:40 Problem List - Problems (1) Incarcerated hernia Code(s): K46.0 - UNSP ABDOMINAL HERNIA WITH OBSTRUCTION, WITHOUT GANGRENE (2) Acute on chronic renal failure Code(s): N17.9 - ACUTE KIDNEY FAILURE, UNSPECIFIED; N18.9 - CHRONIC KIDNEY DISEASE, UNSPECIFIED Qualifiers: Chronic kidney disease stage: stage 3 (moderate) (3) Afib Code(s): I48.91 - UNSPECIFIED ATRIAL FIBRILLATION Qualifiers: Atrial fibrillation type: persistent Qualified Code(s): I48.1 - Persistent atrial fibrillation (4) Anemia Code(s): D64.9 - ANEMIA, UNSPECIFIED Qualifiers: Anemia type: unspecified type Qualified Code(s): D64.9 - Anemia, unspecified (5) Anticoagulated on Coumadin 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 transplanted heart: [place] heart Associated angina: without angina Qualified Code(s): I25.10 - Atherosclerotic heart disease of [place] coronary artery without angina pectoris (7) HTN (hypertension) Code(s): I10 - ESSENTIAL (PRIMARY) HYPERTENSION Qualifiers: Hypertension type: essential hypertension Qualified Code(s): I10 - Essential (primary) hypertension (8) Hyperlipidemia Code(s): E78.5 - HYPERLIPIDEMIA, UNSPECIFIED Qualifiers: Hyperlipidemia type: pure hypercholesterolemia Qualified Code(s): E78.00 - Pure hypercholesterolemia, unspecified; E78.0 - Pure hypercholesterolemia (9) Pacemaker Code(s): Z95.0 - PRESENCE OF CARDIAC PACEMAKER (10) Pleural effusion, right Code(s): J90 - PLEURAL EFFUSION, NOT ELSEWHERE CLASSIFIED (11) Pulmonary hypertension Code(s): I27.2 - OTHER SECONDARY PULMONARY HYPERTENSION * DO NOT USE * (12) Sick sinus syndrome Code(s): I49.5 - SICK SINUS SYNDROME (13) Status post coronary artery stent placement Code(s): Z95.5 - PRESENCE OF CORONARY ANGIOPLASTY IMPLANT AND GRAFT (14) Systolic and diastolic CHF, acute on chronic Code(s): I50.43 - ACUTE ON CHRONIC COMBINED SYSTOLIC AND DIASTOLIC HRT FAIL (15) Type 2 diabetes mellitus Code(s): E11.9 - TYPE 2 DIABETES MELLITUS WITHOUT COMPLICATIONS Qualifiers: Diabetes mellitus complication status: with kidney complications Diabetes mellitus complication detail: with chronic kidney disease Chronic kidney disease stage: stage 3 (moderate) Assessment/Plan 02/09/2018 Echo: Normal LV size with severely decreased LV fxn, severe TR, severe pulm HTN, pacer in RV 1. Incarcerated spigelian hernia without strangulation, for conservative management 2. Right pleural effusion with underlying history of breast carcinoma post mastectomy post chemotherapy, s/p pigtail catheter placement and chest tube 3. 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 CAD post PCI/stent angina pectoris 5. Persistent/chronic atrial fibrillation on anticoagulation, [id number] score of 6, with supratherapeutic INR 6. AV block post PPM 7. Mitral valve and tricuspid valve regurgitation 8. HTN/HCVD 9. DM 10. Hypercholesterolemia 11. Acute on CKD with proteinuria and hyperkalemia resolving PLAN: 1. Hold Coumadin per INR 2. Continue Carvedilol 25 mg BID as tolerated (BP permitting) 3. Entresto 24/26 mg BID once acute on CKD with hyperkalemia resolves to baseline 4. Chest tube repositioning, bronchodilator and O2 as needed
[2018-04-07] MEDS ORDERED: PHYTONADIONE 10 MG/1 ML AMP IVPB ONE (11:19)
--- NOTE | 2018-04-07 13:06 | PN ---
Progress Note (short form) - Note Progress Note: no distress chest tube - no drainage pt has no c/o pain , SOB Vital Signs - 24 hr 04/06/18 04/06/18 04/06/18 14:08 15:42 18:30 Temperature 98.6 F 97.4 F L 97.4 F L Pulse Rate 64 69 76 Respiratory 16 18 18 Rate Blood Pressure 166/86 109/67 119/70 O2 Sat by Pulse Oximetry (%) 04/06/18 04/06/18 04/07/18 21:00 22:00 02:33 Temperature Pulse Rate 66 71 Respiratory 18 18 Rate Blood Pressure 83/53 L 82/53 L O2 Sat by Pulse 96 Oximetry (%) 04/07/18 04/07/18 04/07/18 07:11 09:00 10:00 Temperature 97.3 F L 98 F Pulse Rate 73 68 Respiratory 18 18 18 Rate Blood Pressure 91/56 L 85/51 L O2 Sat by Pulse 97 Oximetry (%) Current Medications Generic Name Dose Route Start Last Admin Trade Name Freq PRN Reason Stop Dose Admin Acetaminophen 650 mg 03/31/18 10:44 04/06/18 10:50 Tylenol - PO 650 mg Q6H PRN Administration MODERATE PAIN Albuterol/Ipratropium 1 amp 04/01/18 01:10 04/06/18 03:16 Duoneb - NEB 1 amp Q6H PRN Administration SHORTNESS OF BREATH Carvedilol 25 mg 03/19/18 22:00 04/07/18 10:05 Coreg - PO Not Given BID [facility] Dextrose 4 gm 03/19/18 23:22 04/06/18 06:26 Glucose Tablet - PO 4 gm ONCE PRN Administration BG < 60mg/dl Guaifenesin 10 ml 03/18/18 18:32 04/02/18 22:15 Robitussin - PO 10 ml Q6H PRN Administration COUGH Insulin Aspart 1 vial 04/03/18 16:30 04/07/18 06:24 Novolog Vial Sliding Scale - SQ Not Given BIDI [facility] Protocol Mirtazapine 7.5 mg 04/06/18 22:00 04/06/18 22:15 Remeron - PO Not Given HS [facility] Nystatin 1 applic 03/28/18 14:00 04/07/18 13:01 Nystop Powder - TP 1 applic QSHIFT [facility] Administration Pantoprazole Sodium 40 mg 03/20/18 10:00 04/07/18 10:06 Protonix - PO 40 mg DAILY [facility] Administration Polyethylene Glycol 17 gm 03/23/18 11:30 04/07/18 10:09 Miralax (For Daily Use) - PO Not Given BID [facility] Sacubitril/Valsartan 1 tab 04/04/18 22:00 04/07/18 10:07 Entresto 24 Mg-26 Mg Tablet PO 1 tab BID [facility] Administration Senna 2 tab 03/23/18 11:16 04/07/18 00:08 Senna - PO 2 tab HS PRN Administration CONSTIPATION Sertraline HCl 25 mg 04/07/18 10:00 04/07/18 10:06 Zoloft - PO 25 mg DAILY [facility] Administration Tamsulosin HCl 0.4 mg 03/20/18 08:30 04/07/18 09:04 Flomax - PO 0.4 mg DAILY@0830 [facility] Administration Laboratory Results - last 24 hr 04/06/18 04/07/18 04/07/18 16:45 02:24 06:22 PT with INR INR POC Glucometer 124 110 Lactic Acid 1.5 04/07/18 06:40 PT with INR 55.70 H INR 4.65 H* POC Glucometer Lactic Acid Physical Examination Constitutional: Yes: No Distress, comfortable Cardiovascular: Yes: Regular Rate and Rhythm Respiratory: Yes: Diminished - chest tube Gastrointestinal: Yes: soft/ hernia + bs present, NT Edema: No Neuro- a0x3 a/p stable not SOB no JVD nebs prn hold Coumadin INR elevated -- give Vit K x 1 Pulmonary follow up noted-- may be able to remove chest tube , but will consult cardiothoracic surgeon for an opinion. monitor for hypoglycemia continue with meds pt does not want any surgical interventions for hernia Problem List - Problems (1) Incarcerated hernia Code(s): K46.0 - UNSP ABDOMINAL HERNIA WITH OBSTRUCTION, WITHOUT GANGRENE (2) Abnormal INR Code(s): R79.1 - ABNORMAL COAGULATION PROFILE (3) Afib Code(s): I48.91 - UNSPECIFIED ATRIAL FIBRILLATION Qualifiers: Atrial fibrillation type: persistent Qualified Code(s): I48.1 - Persistent atrial fibrillation (4) Anemia Code(s): D64.9 - ANEMIA, UNSPECIFIED Qualifiers: Anemia type: unspecified type Qualified Code(s): D64.9 - Anemia, unspecified (5) Anticoagulated on Coumadin 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
--- NOTE | 2018-04-07 14:01 | CONSULT ---
- Consultation REQUESTING PROVIDER: CONSULT REQUEST: We have been asked to surgically evaluate this patient for ( Right pleural effusion/pneumothorax). PCP:Adán Martinez HISTORY OF PRESENT ILLNESS: 82 y/o M w/ PMHx CAD s/p PCI Stent, Afib (on warfarin), CHF, HTN, DM, CKD, Breast Ca (s/p R- Mastectomy, Chemotherapy, 2003) , admitted 03/17 with N/V/abdominal pain, cough and chest congestion. Pt found to have R pleural effusion, now s/p chest tube placement on 03/25 with readjustment on 03/28. Thoracic consulted for evaluation. Unable to obtain adequate assessment from pt on how he is feeling currently. Pt requesting to be bottom of bed "pulled back". Multiple attempts made to adjust bed, pt in the bed, pillows/blankets/gown etc to no avail. RN called for assistance. PMHx: as above PSHx: Mastectomy, Permanent Pacemaker Home Medications Medication Instructions Recorded Colchicine [Colcrys] 0.6 mg PO DAILY 03/27/15 Pantoprazole Sodium [Protonix] 40 mg PO DAILY 03/27/15 Sertraline HCl [Zoloft -] 50 mg PO DAILY 03/27/15 Simvastatin [Zocor -] 20 mg PO HS 03/27/15 Amlodipine Besylate [Norvasc -] 5 mg PO DAILY #30 tablet 09/27/15 Carvedilol [Coreg -] 25 mg PO BID #60 tablet 09/27/15 Polyethylene Glycol 3350 [Miralax 17 gm PO DAILY PRN #1 bottle 09/27/15 119 gm Btl -] Warfarin Na [Coumadin -] 5 mg PO DAILY@1800 #30 tablet 09/27/15 Furosemide [Lasix] 40 mg PO DAILY 30 Days #30 tablet 02/14/18 Tamsulosin HCl [Flomax -] 0.4 mg PO DAILY@0830 cap.er.24h 02/14/18 Allergies Allergy/AdvReac Type Severity Reaction Status Date / Time levofloxacin [From Levaquin] Allergy Rash Verified 03/17/18 19:27 REVIEW OF SYSTEMS: Unable to obtain PHYSICAL EXAM: GENERAL: Awake, alert, nad. Shouting throughout evaluation LUNGS: Uncooperative, R chest tube dressing c/d/i, chest tube bedside with serous drainage in reservoir. Vital Signs Temperature 98 F 04/07/18 10:00 Pulse Rate 68 04/07/18 10:00 Respiratory Rate 18 04/07/18 10:00 Blood Pressure 85/51 L 04/07/18 10:00 O2 Sat by Pulse Oximetry (%) 97 04/07/18 09:00 Lab Results WBC 7.1 K/mm3 (4.0-10.0) 04/06/18 06:20 RBC 3.22 M/mm3 (4.00-5.60) L 04/06/18 06:20 Hgb 10.4 GM/dL (11.7-16.9) L 04/06/18 06:20 Hct 31.0 % (35.4-49) L 04/06/18 06:20 MCV 96.3 fl (80-96) H 04/06/18 06:20 MCHC 33.6 g/dl (32.0-35.9) 04/06/18 06:20 RDW 16.6 % (11.9-15.9) H 04/06/18 06:20 Plt Count 193 K/MM3 (134-434) D 04/06/18 06:20 Sodium 141 mmol/L (136-145) 04/06/18 06:20 Potassium 4.9 mmol/L (3.5-5.1) 04/06/18 06:20 Chloride 108 mmol/L (98-107) H 04/06/18 06:20 Carbon Dioxide 28 mmol/L (21-32) 04/06/18 06:20 Anion Gap 6 MMOL/L (8-16) L 04/06/18 06:20 BUN 41 mg/dL (7-18) H 04/06/18 06:20 Creatinine 1.7 mg/dL (0.55-1.3) H 04/06/18 06:20 Random Glucose 49 mg/dL (74-106) L* 04/06/18 06:20 Calcium 8.7 mg/dL (8.5-10.1) 04/06/18 06:20 Blood Type B POSITIVE 03/17/18 20:30 Antibody Screen Negative 03/17/18 20:30 INR 4.65 (0.83-1.09) H* 04/07/18 06:40 A/P: 82 y/o M w/ PMHx CAD s/p PCI Stent, Afib (on warfarin), CHF, HTN, DM, CKD , Breast Ca (s/p R- Mastectomy, Chemotherapy, 2003), admitted 03/17 with N/V/ abdominal pain, cough and chest congestion. Pt found to have R pleural effusion , now s/p chest tube placement on 03/25 with readjustment on 03/28. Thoracic consulted for evaluation. -Case discussed between Dr Berger and Dr Samayoa -No thoracic intervention at this time -June d/c pigtail -Management per medical team d/w attending Dr Samayoa
[2018-04-07] MEDS: ALBUTEROL SO4 2.5/IPRATROPIUM 0.5 INH SOL 3 ML VIAL.NEB. NEB PRN (20:25)
[2018-04-07] MEDS: MIRTAZAPINE 15 MG TABLET (FP) PO SCH (22:30)
[2018-04-08] MEDS: NYSTATIN POWDER 100,000 UNITS/GM - 15 GM TOPICAL POWDER TP SCH ×3 (06:44→22:05)
[2018-04-08] MEDS: INSULIN SLIDING SCALE (NOVOLOG) 1 VIAL SQ SCH ×2 (06:44→17:56)
[2018-04-08 07:45] LABS: INR 1.46 (0.83-1.09); PROTHROMBIN TIME (PATIENT) 17.3 SEC (9.7-13.0)
[2018-04-08] MEDS: TAMSULOSIN HCL 0.4 MG CAP PO SCH (09:05)
[2018-04-08] MEDS: CARVEDILOL 25 MG TABLET (FP) PO SCH ×2 (10:00→22:41)
[2018-04-08] MEDS: SACUBITRIL/VALSARTAN 24 MG-26 MG TABLET PO SCH ×2 (10:01→22:41)
[2018-04-08] MEDS: PANTOPRAZOLE 40 MG TABLET (FP) PO SCH (10:03)
[2018-04-08] MEDS: POLYETHYLENE GLYCOL 3350 119 GM BTL PO SCH ×2 (10:03→22:41)
[2018-04-08] MEDS: SERTRALINE HCL 25 MG TABLET (FP) PO SCH (10:03)
[2018-04-08] MEDS ORDERED: PT OWN MED DRAWER 7, Y5N ONE (10:26)
--- NOTE | 2018-04-08 12:48 | PN ---
Progress Note (short form) - Note Progress Note: pt seen/ examined chart reviewed. awake/ comfortable Vital Signs Temp 98 F 04/08/18 10:00 Pulse 78 04/08/18 10:00 Resp 19 04/08/18 10:00 BP 98/56 L 04/08/18 10:00 Pulse Ox 97 04/07/18 21:00 Intake & Output 04/07/18 04/08/18 04/08/18 23:59 11:59 23:59 Intake Total 950 Output Total 75 0 Balance 875 0 Weight 156 lb Intake: IVPB 50 Oral 900 Output: Chest Tube Drainage 0 0 Right Mediastinal 0 0 Urine 75 Void 75 Other: Voiding Method Urinal Urinal # Unmeasured Voids Void 2 2 Bowel Movement Yes # Bowel Movements 1 Weight Measurement Method Patient Lift Scale Active Medications Acetaminophen (Tylenol -) 650 mg PO Q6H PRN PRN Reason: MODERATE PAIN Last Admin: 04/06/18 10:50 Dose: 650 mg Albuterol/Ipratropium (Duoneb -) 1 amp NEB Q6H PRN PRN Reason: SHORTNESS OF BREATH Last Admin: 04/07/18 20:25 Dose: 1 amp Carvedilol (Coreg -) 25 mg PO BID [facility] Last Admin: 04/08/18 10:00 Dose: Not Given Dextrose (Glucose Tablet -) 4 gm PO ONCE PRN PRN Reason: BG < 60mg/dl Last Admin: 04/06/18 06:26 Dose: 4 gm Guaifenesin (Robitussin -) 10 ml PO Q6H PRN PRN Reason: COUGH Last Admin: 04/02/18 22:15 Dose: 10 ml Insulin Aspart (Novolog Vial Sliding Scale -) 1 vial SQ BIDI [facility]; Protocol Last Admin: 04/08/18 06:44 Dose: Not Given Mirtazapine (Remeron -) 7.5 mg PO HS [facility] Last Admin: 04/07/18 22:30 Dose: Not Given Nystatin (Nystop Powder -) 1 applic TP QSHIFT [facility] Last Admin: 04/08/18 06:44 Dose: 1 applic Pantoprazole Sodium (Protonix -) 40 mg PO DAILY [facility] Last Admin: 04/08/18 10:03 Dose: 40 mg Polyethylene Glycol (Miralax (For Daily Use) -) 17 gm PO BID [facility] Last Admin: 04/08/18 10:03 Dose: Not Given Sacubitril/Valsartan (Entresto 24 Mg-26 Mg Tablet) 1 tab PO BID [facility] Last Admin: 04/08/18 10:01 Dose: 1 tab Senna (Senna -) 2 tab PO HS PRN PRN Reason: CONSTIPATION Last Admin: 04/07/18 00:08 Dose: 2 tab Sertraline HCl (Zoloft -) 25 mg PO DAILY [facility] Last Admin: 04/08/18 10:03 Dose: 25 mg Tamsulosin HCl (Flomax -) 0.4 mg PO DAILY@0830 [facility] Last Admin: 04/08/18 09:05 Dose: 0.4 mg CBC, BMP 04/06/18 06:20 04/06/18 06:20 INR, PTT INR 1.46 (0.83-1.09) H 04/08/18 06:20 Physical Examination Constitutional: Yes: No Distress, comfortable Cardiovascular: Yes: Regular Rate and Rhythm Respiratory: Yes: Diminished - chest tube Gastrointestinal: Yes: soft/ hernia + bs present, NT Edema: No Neuro- Alert/ awake a/p stable c tube not draining discussed with IR-- Recommended to place new tube and replace old one. discussed with Pts daughter also will follow Problem List - Problems (1) Incarcerated hernia Code(s): K46.0 - UNSP ABDOMINAL HERNIA WITH OBSTRUCTION, WITHOUT GANGRENE (2) Abnormal INR Code(s): R79.1 - ABNORMAL COAGULATION PROFILE (3) Afib Code(s): I48.91 - UNSPECIFIED ATRIAL FIBRILLATION Qualifiers: Atrial fibrillation type: persistent Qualified Code(s): I48.1 - Persistent atrial fibrillation (4) Anticoagulated on Coumadin Code(s): Z79.01 - CORRECTION (CURRENT) USE OF ANTICOAGULANTS (5) Ascites Code(s): R18.8 - OTHER ASCITES Qualifiers: Ascites type: other type Qualified Code(s): R18.8 - Other ascites (6) Breast cancer in male Code(s): C50.929 - MALIGNANT NEOPLASM OF UNSP SITE OF UNSPECIFIED MALE BREAST (7) Chronic kidney disease (CKD) Code(s): N18.9 - CHRONIC KIDNEY DISEASE, UNSPECIFIED Qualifiers: Chronic kidney disease stage: unspecified stage Qualified Code(s): N18.9 - Chronic kidney disease, unspecified (8) Coronary artery disease Code(s): I25.10 - ATHSCL HEART DISEASE OF [place] CORONARY ARTERY W/O ANG PCTRS Qualifiers: Coronary Disease-Associated Artery/Lesion type: [place] artery [place] vs. transplanted heart: [place] heart Associated angina: without angina Qualified Code(s): I25.10 - Atherosclerotic heart disease of [place] coronary artery without angina pectoris (9) Pacemaker Code(s): Z95.0 - PRESENCE OF CARDIAC PACEMAKER (10) Pleural effusion Code(s): J90 - PLEURAL EFFUSION, NOT ELSEWHERE CLASSIFIED
--- NOTE | 2018-04-08 14:28 | PN ---
Progress Note, Physician History of Present Illness: PULMONARY ALERT,NO DISTRESS,FOR CHEST TUBE PLACEMENT TODAY - Current Medication List Current Medications: Active Medications Acetaminophen (Tylenol -) 650 mg PO Q6H PRN PRN Reason: MODERATE PAIN Last Admin: 04/06/18 10:50 Dose: 650 mg Albuterol/Ipratropium (Duoneb -) 1 amp NEB Q6H PRN PRN Reason: SHORTNESS OF BREATH Last Admin: 04/07/18 20:25 Dose: 1 amp Carvedilol (Coreg -) 25 mg PO BID [facility] Last Admin: 04/08/18 10:00 Dose: Not Given Dextrose (Glucose Tablet -) 4 gm PO ONCE PRN PRN Reason: BG < 60mg/dl Last Admin: 04/06/18 06:26 Dose: 4 gm Guaifenesin (Robitussin -) 10 ml PO Q6H PRN PRN Reason: COUGH Last Admin: 04/02/18 22:15 Dose: 10 ml Insulin Aspart (Novolog Vial Sliding Scale -) 1 vial SQ BIDI [facility]; Protocol Last Admin: 04/08/18 06:44 Dose: Not Given Mirtazapine (Remeron -) 7.5 mg PO HS [facility] Last Admin: 04/07/18 22:30 Dose: Not Given Nystatin (Nystop Powder -) 1 applic TP QSHIFT [facility] Last Admin: 04/08/18 14:19 Dose: 1 applic Pantoprazole Sodium (Protonix -) 40 mg PO DAILY [facility] Last Admin: 04/08/18 10:03 Dose: 40 mg Polyethylene Glycol (Miralax (For Daily Use) -) 17 gm PO BID [facility] Last Admin: 04/08/18 10:03 Dose: Not Given Sacubitril/Valsartan (Entresto 24 Mg-26 Mg Tablet) 1 tab PO BID [facility] Last Admin: 04/08/18 10:01 Dose: 1 tab Senna (Senna -) 2 tab PO HS PRN PRN Reason: CONSTIPATION Last Admin: 04/07/18 00:08 Dose: 2 tab Sertraline HCl (Zoloft -) 25 mg PO DAILY [facility] Last Admin: 04/08/18 10:03 Dose: 25 mg Tamsulosin HCl (Flomax -) 0.4 mg PO DAILY@0830 [facility] Last Admin: 04/08/18 09:05 Dose: 0.4 mg - Objective Vital Signs: Vital Signs Temperature 98 F 04/08/18 14:23 Pulse Rate 77 04/08/18 14:23 Respiratory Rate 17 04/08/18 14:23 Blood Pressure 93/53 L 04/08/18 14:23 O2 Sat by Pulse Oximetry (%) 97 04/08/18 09:00 Constitutional: Yes: Calm, Thin Eyes: Yes: WNL HENT: Yes: WNL Neck: Yes: WNL Cardiovascular: Yes: Pulse Irregular, S1, S2 Respiratory: Yes: Diminished Gastrointestinal: Yes: Normal Bowel Sounds, Soft Extremities: Yes: WNL Edema: No Labs: Assessment/Plan Problem List - Problems (1) Incarcerated hernia Code(s): K46.0 - UNSP ABDOMINAL HERNIA WITH OBSTRUCTION, WITHOUT GANGRENE NOT A SURGICAL CANDIDATE (2) Acute on chronic renal failure Code(s): N17.9 - ACUTE KIDNEY FAILURE, UNSPECIFIED; N18.9 - CHRONIC KIDNEY DISEASE, UNSPECIFIED Qualifiers: Chronic kidney disease stage: stage 3 (moderate) (3) Afib Code(s): I48.91 - UNSPECIFIED ATRIAL FIBRILLATION Qualifiers: Atrial fibrillation type: persistent Qualified Code(s): I48.1 - Persistent atrial fibrillation (4) Anemia Code(s): D64.9 - ANEMIA, UNSPECIFIED Qualifiers: Anemia type: unspecified type Qualified Code(s): D64.9 - Anemia, unspecified (5) Anticoagulated on Coumadin Code(s): Z79.01 - SKILLED NURSING (CURRENT) USE OF ANTICOAGULANTS (6) Coronary artery disease Code(s): I25.10 - ATHSCL HEART DISEASE OF [place] CORONARY ARTERY W/O ANG PCTRS Qualifiers: Coronary Disease-Associated Artery/Lesion type: [place] artery [place] vs. transplanted heart: [place] heart Associated angina: without angina Qualified Code(s): I25.10 - Atherosclerotic heart disease of [place] coronary artery without angina pectoris (7) HTN (hypertension) Code(s): I10 - ESSENTIAL (PRIMARY) HYPERTENSION Qualifiers: Hypertension type: essential hypertension Qualified Code(s): I10 - Essential (primary) hypertension (8) Hyperlipidemia Code(s): E78.5 - HYPERLIPIDEMIA, UNSPECIFIED Qualifiers: Hyperlipidemia type: pure hypercholesterolemia Qualified Code(s): E78.00 - Pure hypercholesterolemia, unspecified; E78.0 - Pure hypercholesterolemia (9) Pacemaker Code(s): Z95.0 - PRESENCE OF CARDIAC PACEMAKER (10) Pleural effusion, right Code(s): J90 - PLEURAL EFFUSION, NOT ELSEWHERE CLASSIFIED (11) Pulmonary hypertension Code(s): I27.2 - OTHER SECONDARY PULMONARY HYPERTENSION * DO NOT USE * (12) Sick sinus syndrome Code(s): I49.5 - SICK SINUS SYNDROME (13) Status post coronary artery stent placement Code(s): Z95.5 - PRESENCE OF CORONARY ANGIOPLASTY IMPLANT AND GRAFT (14) Supratherapeutic INR Code(s): R79.1 - ABNORMAL COAGULATION PROFILE (15) Systolic and diastolic CHF, acute on chronic Code(s): I50.43 - ACUTE ON CHRONIC COMBINED SYSTOLIC AND DIASTOLIC HRT FAIL (16) Type 2 diabetes mellitus Code(s): E11.9 - TYPE 2 DIABETES MELLITUS WITHOUT COMPLICATIONS Qualifiers: Diabetes mellitus complication status: with kidney complications Diabetes mellitus complication detail: with chronic kidney disease Chronic kidney disease stage: stage 3 (moderate) A/P Incarcerated Hernia Right Pleural Effusion S/P chest tube h/o Breast Ca Acute on Chronic Renal Failure LV Systolic Dysfunction CAD Atrial Fibrillation/AV block s/p PPM Mitral Regurgitation HTN DM Supratherapeutic INR - inhaled bronchodilators - O2 to keep SpO2 >90% - chest tube placement today DR AKINS
--- NOTE | 2018-04-08 14:52 | PN ---
Progress Note, Physician History of Present Illness: Resting, dyspnea and cough resolved. Right chest tube no longer draining and planned for replacement. - Current Medication List Current Medications: Active Medications Acetaminophen (Tylenol -) 650 mg PO Q6H PRN PRN Reason: MODERATE PAIN Last Admin: 04/06/18 10:50 Dose: 650 mg Albuterol/Ipratropium (Duoneb -) 1 amp NEB Q6H PRN PRN Reason: SHORTNESS OF BREATH Last Admin: 04/07/18 20:25 Dose: 1 amp Carvedilol (Coreg -) 25 mg PO BID [facility] Last Admin: 04/08/18 10:00 Dose: Not Given Dextrose (Glucose Tablet -) 4 gm PO ONCE PRN PRN Reason: BG < 60mg/dl Last Admin: 04/06/18 06:26 Dose: 4 gm Guaifenesin (Robitussin -) 10 ml PO Q6H PRN PRN Reason: COUGH Last Admin: 04/02/18 22:15 Dose: 10 ml Insulin Aspart (Novolog Vial Sliding Scale -) 1 vial SQ BIDI [facility]; Protocol Last Admin: 04/08/18 06:44 Dose: Not Given Mirtazapine (Remeron -) 7.5 mg PO HS [facility] Last Admin: 04/07/18 22:30 Dose: Not Given Nystatin (Nystop Powder -) 1 applic TP QSHIFT [facility] Last Admin: 04/08/18 14:19 Dose: 1 applic Pantoprazole Sodium (Protonix -) 40 mg PO DAILY [facility] Last Admin: 04/08/18 10:03 Dose: 40 mg Polyethylene Glycol (Miralax (For Daily Use) -) 17 gm PO BID [facility] Last Admin: 04/08/18 10:03 Dose: Not Given Sacubitril/Valsartan (Entresto 24 Mg-26 Mg Tablet) 1 tab PO BID [facility] Last Admin: 04/08/18 10:01 Dose: 1 tab Senna (Senna -) 2 tab PO HS PRN PRN Reason: CONSTIPATION Last Admin: 04/07/18 00:08 Dose: 2 tab Sertraline HCl (Zoloft -) 25 mg PO DAILY [facility] Last Admin: 04/08/18 10:03 Dose: 25 mg Tamsulosin HCl (Flomax -) 0.4 mg PO DAILY@0830 [facility] Last Admin: 04/08/18 09:05 Dose: 0.4 mg - Objective Vital Signs: Vital Signs Temperature 98 F 04/08/18 14:23 Pulse Rate 77 04/08/18 14:23 Respiratory Rate 17 04/08/18 14:23 Blood Pressure 93/53 L 04/08/18 14:23 O2 Sat by Pulse Oximetry (%) 97 04/08/18 09:00 Labs: CBC, BMP 04/06/18 06:20 04/06/18 06:20 INR, PTT INR 1.46 (0.83-1.09) H 04/08/18 06:20 Problem List - Problems (1) Incarcerated hernia Code(s): K46.0 - UNSP ABDOMINAL HERNIA WITH OBSTRUCTION, WITHOUT GANGRENE (2) Acute on chronic renal failure Code(s): N17.9 - ACUTE KIDNEY FAILURE, UNSPECIFIED; N18.9 - CHRONIC KIDNEY DISEASE, UNSPECIFIED Qualifiers: Chronic kidney disease stage: stage 3 (moderate) (3) Afib Code(s): I48.91 - UNSPECIFIED ATRIAL FIBRILLATION Qualifiers: Atrial fibrillation type: persistent Qualified Code(s): I48.1 - Persistent atrial fibrillation (4) Anemia Code(s): D64.9 - ANEMIA, UNSPECIFIED Qualifiers: Anemia type: unspecified type Qualified Code(s): D64.9 - Anemia, unspecified (5) Anticoagulated on Coumadin Code(s): Z79.01 - SENIOR CARE (CURRENT) USE OF ANTICOAGULANTS (6) Coronary artery disease Code(s): I25.10 - ATHSCL HEART DISEASE OF [place] CORONARY ARTERY W/O ANG PCTRS Qualifiers: Coronary Disease-Associated Artery/Lesion type: [place] artery [place] vs. transplanted heart: [place] heart Associated angina: without angina Qualified Code(s): I25.10 - Atherosclerotic heart disease of [place] coronary artery without angina pectoris (7) HTN (hypertension) Code(s): I10 - ESSENTIAL (PRIMARY) HYPERTENSION Qualifiers: Hypertension type: essential hypertension Qualified Code(s): I10 - Essential (primary) hypertension (8) Hyperlipidemia Code(s): E78.5 - HYPERLIPIDEMIA, UNSPECIFIED Qualifiers: Hyperlipidemia type: pure hypercholesterolemia Qualified Code(s): E78.00 - Pure hypercholesterolemia, unspecified; E78.0 - Pure hypercholesterolemia (9) Pacemaker Code(s): Z95.0 - PRESENCE OF CARDIAC PACEMAKER (10) Pleural effusion, right Code(s): J90 - PLEURAL EFFUSION, NOT ELSEWHERE CLASSIFIED (11) Pulmonary hypertension Code(s): I27.2 - OTHER SECONDARY PULMONARY HYPERTENSION * DO NOT USE * (12) Sick sinus syndrome Code(s): I49.5 - SICK SINUS SYNDROME (13) Status post coronary artery stent placement Code(s): Z95.5 - PRESENCE OF CORONARY ANGIOPLASTY IMPLANT AND GRAFT (14) Systolic and diastolic CHF, acute on chronic Code(s): I50.43 - ACUTE ON CHRONIC COMBINED SYSTOLIC AND DIASTOLIC HRT FAIL (15) Type 2 diabetes mellitus Code(s): E11.9 - TYPE 2 DIABETES MELLITUS WITHOUT COMPLICATIONS Qualifiers: Diabetes mellitus complication status: with kidney complications Diabetes mellitus complication detail: with chronic kidney disease Chronic kidney disease stage: stage 3 (moderate) Assessment/Plan 02/09/2018 Echo: Normal LV size with severely decreased LV fxn, severe TR, severe pulm HTN, pacer in RV 1. Incarcerated spigelian hernia without strangulation, for conservative management 2. Right pleural effusion with underlying history of breast carcinoma post mastectomy post chemotherapy, s/p pigtail catheter placement and chest tube 3. 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 CAD post PCI/stent angina pectoris 5. Persistent/chronic atrial fibrillation on anticoagulation, [id number] score of 6, with supratherapeutic INR 6. AV block post PPM 7. Mitral valve and tricuspid valve regurgitation 8. HTN/HCVD 9. DM 10. Hypercholesterolemia 11. Acute on CKD with proteinuria and hyperkalemia resolving PLAN: 1. Hold Coumadin per INR 2. Continue Carvedilol 25 mg BID as tolerated (BP permitting) 3. Entresto 24/26 mg BID once acute on CKD with hyperkalemia resolves to baseline 4. Chest tube replacement, bronchodilator and O2 as needed
[2018-04-08] MEDS: ALBUTEROL SO4 2.5/IPRATROPIUM 0.5 INH SOL 3 ML VIAL.NEB. NEB PRN (20:30)
[2018-04-08] MEDS: MIRTAZAPINE 15 MG TABLET (FP) PO SCH (22:41)
[2018-04-09] MEDS: INSULIN SLIDING SCALE (NOVOLOG) 1 VIAL SQ SCH ×2 (06:08→17:34)
[2018-04-09] MEDS: NYSTATIN POWDER 100,000 UNITS/GM - 15 GM TOPICAL POWDER TP SCH ×3 (06:08→23:22)
[2018-04-09 08:41] LABS: INR 1.3 (0.83-1.09); PROTHROMBIN TIME (PATIENT) 15.4 SEC (9.7-13.0)
[2018-04-09] MEDS ORDERED: PT OWN MED DRAWER 7, Y5N ONE ×2 (09:50→22:31)
[2018-04-09] MEDS: PANTOPRAZOLE 40 MG TABLET (FP) PO SCH (10:20)
[2018-04-09] MEDS: CARVEDILOL 25 MG TABLET (FP) PO SCH ×2 (10:20→23:21)
[2018-04-09] MEDS: POLYETHYLENE GLYCOL 3350 119 GM BTL PO SCH ×2 (10:20→23:16)
[2018-04-09] MEDS: SACUBITRIL/VALSARTAN 24 MG-26 MG TABLET PO SCH ×2 (10:20→23:21)
[2018-04-09] MEDS: SERTRALINE HCL 25 MG TABLET (FP) PO SCH (10:20)
[2018-04-09] MEDS: TAMSULOSIN HCL 0.4 MG CAP PO SCH (10:20)
--- NOTE | 2018-04-09 12:14 | PN ---
Progress Note (short form) - Note Progress Note: Awake and alert. Pleurl catheter changed yesterday and draining well. Denies CP. SOB is better. CXR: Improving Intake & Output 04/06/18 04/07/18 04/08/18 04/09/18 23:59 23:59 23:59 23:59 Intake Total 1200 950 450 Output Total 600 75 150 1125 Balance 600 875 300 -1125 Weight 156 lb Last Vital Signs Temp Pulse Resp BP Pulse Ox 97.9 F 74 19 104/60 97 04/09/18 06:00 04/09/18 10:00 04/09/18 10:00 04/09/18 10:00 04/08/18 21:00 Active Medications Acetaminophen (Tylenol -) 650 mg PO Q6H PRN PRN Reason: MODERATE PAIN Last Admin: 04/06/18 10:50 Dose: 650 mg Albuterol/Ipratropium (Duoneb -) 1 amp NEB Q6H PRN PRN Reason: SHORTNESS OF BREATH Last Admin: 04/08/18 20:30 Dose: 1 amp Carvedilol (Coreg -) 25 mg PO BID [facility] Last Admin: 04/09/18 10:20 Dose: 25 mg Dextrose (Glucose Tablet -) 4 gm PO ONCE PRN PRN Reason: BG < 60mg/dl Last Admin: 04/06/18 06:26 Dose: 4 gm Guaifenesin (Robitussin -) 10 ml PO Q6H PRN PRN Reason: COUGH Last Admin: 04/02/18 22:15 Dose: 10 ml Insulin Aspart (Novolog Vial Sliding Scale -) 1 vial SQ BIDI [facility]; Protocol Last Admin: 04/09/18 06:08 Dose: Not Given Mirtazapine (Remeron -) 7.5 mg PO HS [facility] Last Admin: 04/08/18 22:41 Dose: Not Given Nystatin (Nystop Powder -) 1 applic TP QSHIFT [facility] Last Admin: 04/09/18 06:08 Dose: 1 applic Pantoprazole Sodium (Protonix -) 40 mg PO DAILY [facility] Last Admin: 04/09/18 10:20 Dose: 40 mg Polyethylene Glycol (Miralax (For Daily Use) -) 17 gm PO BID [facility] Last Admin: 04/09/18 10:20 Dose: Not Given Sacubitril/Valsartan (Entresto 24 Mg-26 Mg Tablet) 1 tab PO BID [facility] Last Admin: 04/09/18 10:20 Dose: 1 tab Senna (Senna -) 2 tab PO HS PRN PRN Reason: CONSTIPATION Last Admin: 04/07/18 00:08 Dose: 2 tab Sertraline HCl (Zoloft -) 25 mg PO DAILY [facility] Last Admin: 04/09/18 10:20 Dose: 25 mg Tamsulosin HCl (Flomax -) 0.4 mg PO DAILY@0830 [facility] Last Admin: 04/09/18 10:20 Dose: 0.4 mg Constitutional: Yes: Calm, Thin Eyes: Yes: WNL HENT: Yes: WNL Neck: Yes: WNL Cardiovascular: Yes: Pulse Irregular, S1, S2 Respiratory: Yes: Diminished, right pleural catheter intact Gastrointestinal: Yes: Normal Bowel Sounds, Soft Extremities: Yes: WNL Edema: No Labs: Laboratory Results - last 24 hr 04/09/18 04/09/18 05:48 07:00 PT with INR 15.40 H INR 1.30 H POC Glucometer 130 Assessment/Plan Problem List - Problems (1) Incarcerated hernia Code(s): K46.0 - UNSP ABDOMINAL HERNIA WITH OBSTRUCTION, WITHOUT GANGRENE NOT A SURGICAL CANDIDATE (2) Acute on chronic renal failure Code(s): N17.9 - ACUTE KIDNEY FAILURE, UNSPECIFIED; N18.9 - CHRONIC KIDNEY DISEASE, UNSPECIFIED Qualifiers: Chronic kidney disease stage: stage 3 (moderate) (3) Afib Code(s): I48.91 - UNSPECIFIED ATRIAL FIBRILLATION Qualifiers: Atrial fibrillation type: persistent Qualified Code(s): I48.1 - Persistent atrial fibrillation (4) Anemia Code(s): D64.9 - ANEMIA, UNSPECIFIED Qualifiers: Anemia type: unspecified type Qualified Code(s): D64.9 - Anemia, unspecified (5) Anticoagulated on Coumadin Code(s): Z79.01 - MACHINE MAINTENANCE (CURRENT) USE OF ANTICOAGULANTS (6) Coronary artery disease Code(s): I25.10 - ATHSCL HEART DISEASE OF [place] CORONARY ARTERY W/O ANG PCTRS Qualifiers: Coronary Disease-Associated Artery/Lesion type: [place] artery [place] vs. transplanted heart: [place] heart Associated angina: without angina Qualified Code(s): I25.10 - Atherosclerotic heart disease of [place] coronary artery without angina pectoris (7) HTN (hypertension) Code(s): I10 - ESSENTIAL (PRIMARY) HYPERTENSION Qualifiers: Hypertension type: essential hypertension Qualified Code(s): I10 - Essential (primary) hypertension (8) Hyperlipidemia Code(s): E78.5 - HYPERLIPIDEMIA, UNSPECIFIED Qualifiers: Hyperlipidemia type: pure hypercholesterolemia Qualified Code(s): E78.00 - Pure hypercholesterolemia, unspecified; E78.0 - Pure hypercholesterolemia (9) Pacemaker Code(s): Z95.0 - PRESENCE OF CARDIAC PACEMAKER (10) Pleural effusion, right Code(s): J90 - PLEURAL EFFUSION, NOT ELSEWHERE CLASSIFIED (11) Pulmonary hypertension Code(s): I27.2 - OTHER SECONDARY PULMONARY HYPERTENSION * DO NOT USE * (12) Sick sinus syndrome Code(s): I49.5 - SICK SINUS SYNDROME (13) Status post coronary artery stent placement Code(s): Z95.5 - PRESENCE OF CORONARY ANGIOPLASTY IMPLANT AND GRAFT (14) Supratherapeutic INR Code(s): R79.1 - ABNORMAL COAGULATION PROFILE (15) Systolic and diastolic CHF, acute on chronic Code(s): I50.43 - ACUTE ON CHRONIC COMBINED SYSTOLIC AND DIASTOLIC HRT FAIL (16) Type 2 diabetes mellitus Code(s): E11.9 - TYPE 2 DIABETES MELLITUS WITHOUT COMPLICATIONS Qualifiers: Diabetes mellitus complication status: with kidney complications Diabetes mellitus complication detail: with chronic kidney disease Chronic kidney disease stage: stage 3 (moderate) A/P Incarcerated Hernia Right Pleural Effusion S/P chest tube h/o Breast Ca Acute on Chronic Renal Failure LV Systolic Dysfunction CAD Atrial Fibrillation/AV block s/p PPM Mitral Regurgitation HTN DM Supratherapeutic INR - inhaled bronchodilators - O2 to keep SpO2 >90% - Monitor pleural catheter drainage - CXR in AM Dr [place]
--- NOTE | 2018-04-09 13:31 | PN ---
Progress Note (short form) - Note Progress Note: pt seen/ examined c tube changed-- draining well now no complains Vital Signs Temp 97.9 F 04/09/18 06:00 Pulse 74 04/09/18 10:00 Resp 19 04/09/18 10:00 BP 104/60 04/09/18 10:00 Pulse Ox 97 04/09/18 09:00 Intake & Output 04/08/18 04/09/18 04/09/18 23:59 11:59 23:59 Intake Total 450 Output Total 150 1125 Balance 300 -1125 Weight 156 lb Intake: Oral 450 Output: Chest Tube Drainage 75 1125 Right Mediastinal 75 1125 Urine 75 Void 75 Other: Voiding Method Urinal Urinal # Unmeasured Voids Void 3 3 Bowel Movement No No Weight Measurement Method Patient Lift Scale Active Medications Acetaminophen (Tylenol -) 650 mg PO Q6H PRN PRN Reason: MODERATE PAIN Last Admin: 04/06/18 10:50 Dose: 650 mg Albuterol/Ipratropium (Duoneb -) 1 amp NEB Q6H PRN PRN Reason: SHORTNESS OF BREATH Last Admin: 04/08/18 20:30 Dose: 1 amp Carvedilol (Coreg -) 25 mg PO BID [facility] Last Admin: 04/09/18 10:20 Dose: 25 mg Dextrose (Glucose Tablet -) 4 gm PO ONCE PRN PRN Reason: BG < 60mg/dl Last Admin: 04/06/18 06:26 Dose: 4 gm Guaifenesin (Robitussin -) 10 ml PO Q6H PRN PRN Reason: COUGH Last Admin: 04/02/18 22:15 Dose: 10 ml Insulin Aspart (Novolog Vial Sliding Scale -) 1 vial SQ BIDI [facility]; Protocol Last Admin: 04/09/18 06:08 Dose: Not Given Mirtazapine (Remeron -) 7.5 mg PO HS [facility] Last Admin: 04/08/18 22:41 Dose: Not Given Nystatin (Nystop Powder -) 1 applic TP QSHIFT [facility] Last Admin: 04/09/18 06:08 Dose: 1 applic Pantoprazole Sodium (Protonix -) 40 mg PO DAILY [facility] Last Admin: 04/09/18 10:20 Dose: 40 mg Polyethylene Glycol (Miralax (For Daily Use) -) 17 gm PO BID [facility] Last Admin: 04/09/18 10:20 Dose: Not Given Sacubitril/Valsartan (Entresto 24 Mg-26 Mg Tablet) 1 tab PO BID [facility] Last Admin: 04/09/18 10:20 Dose: 1 tab Senna (Senna -) 2 tab PO HS PRN PRN Reason: CONSTIPATION Last Admin: 04/07/18 00:08 Dose: 2 tab Sertraline HCl (Zoloft -) 25 mg PO DAILY [facility] Last Admin: 04/09/18 10:20 Dose: 25 mg Tamsulosin HCl (Flomax -) 0.4 mg PO DAILY@0830 [facility] Last Admin: 04/09/18 10:20 Dose: 0.4 mg Warfarin Sodium (Coumadin -) 3 mg PO DAILY@1800 [facility] CBC, BMP 04/06/18 06:20 04/06/18 06:20 INR, PTT INR 1.30 (0.83-1.09) H 04/09/18 07:00 Physical Examination Constitutional: Yes: No Distress, comfortable Cardiovascular: Yes: Regular Rate and Rhythm Respiratory: Yes: Diminished - chest tube Gastrointestinal: Yes: soft/ hernia + bs present, NT Edema: No Neuro- Alert/ awake a/p stable c tube functioning well f/u labs restart on coumadin will follow. 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) USE OF ANTICOAGULANTS (5) Ascites Code(s): R18.8 - OTHER ASCITES Qualifiers: Ascites type: other type Qualified Code(s): R18.8 - Other ascites (6) Breast cancer in male Code(s): C50.929 - MALIGNANT NEOPLASM OF UNSP SITE OF UNSPECIFIED MALE BREAST (7) Chronic kidney disease (CKD) Code(s): N18.9 - CHRONIC KIDNEY DISEASE, UNSPECIFIED Qualifiers: Chronic kidney disease stage: unspecified stage Qualified Code(s): N18.9 - Chronic kidney disease, unspecified (8) Coronary artery disease Code(s): I25.10 - ATHSCL HEART DISEASE OF [place] CORONARY ARTERY W/O ANG PCTRS Qualifiers: Coronary Disease-Associated Artery/Lesion type: [place] artery [place] vs. transplanted heart: [place] heart Associated angina: without angina Qualified Code(s): I25.10 - Atherosclerotic heart disease of [place] coronary artery without angina pectoris (9) Pacemaker Code(s): Z95.0 - PRESENCE OF CARDIAC PACEMAKER (10) Pleural effusion Code(s): J90 - PLEURAL EFFUSION, NOT ELSEWHERE CLASSIFIED
[2018-04-09] MEDS: WARFARIN NA 3 MG TABLET PO SCH (17:34)
--- NOTE | 2018-04-09 18:43 | PN ---
Progress Note (short form) - Note Progress Note: Chief Complaint: Events noted, notes reviewed, Denies any chest discomfort, reports persistent dyspnea but improved History of Present Illness: Seen and examined. Events noted, notes reviewed, Denies any chest discomfort, reports persistent dyspnea Echocardiography dated 02/09/2018 revealed normal LV size with severely decreased LV systolic function, severe TR, severe pulmonary HTN, pacer in RV Current Medications: Current Medications Acetaminophen (Tylenol -) 650 mg PO Q6H PRN PRN Reason: MODERATE PAIN Last Admin: 04/06/18 10:50 Dose: 650 mg Albuterol/Ipratropium (Duoneb -) 1 amp NEB Q6H PRN PRN Reason: SHORTNESS OF BREATH Last Admin: 04/08/18 20:30 Dose: 1 amp Carvedilol (Coreg -) 25 mg PO BID [facility] Last Admin: 04/09/18 10:20 Dose: 25 mg Dextrose (Glucose Tablet -) 4 gm PO ONCE PRN PRN Reason: BG < 60mg/dl Last Admin: 04/06/18 06:26 Dose: 4 gm Guaifenesin (Robitussin -) 10 ml PO Q6H PRN PRN Reason: COUGH Last Admin: 04/02/18 22:15 Dose: 10 ml Insulin Aspart (Novolog Vial Sliding Scale -) 1 vial SQ BIDI [facility]; Protocol Last Admin: 04/09/18 17:34 Dose: Not Given Mirtazapine (Remeron -) 7.5 mg PO HS [facility] Last Admin: 04/08/18 22:41 Dose: Not Given Nystatin (Nystop Powder -) 1 applic TP QSHIFT [facility] Last Admin: 04/09/18 14:35 Dose: 1 applic Pantoprazole Sodium (Protonix -) 40 mg PO DAILY [facility] Last Admin: 04/09/18 10:20 Dose: 40 mg Polyethylene Glycol (Miralax (For Daily Use) -) 17 gm PO BID [facility] Last Admin: 04/09/18 10:20 Dose: Not Given Sacubitril/Valsartan (Entresto 24 Mg-26 Mg Tablet) 1 tab PO BID [facility] Last Admin: 04/09/18 10:20 Dose: 1 tab Senna (Senna -) 2 tab PO HS PRN PRN Reason: CONSTIPATION Last Admin: 04/07/18 00:08 Dose: 2 tab Sertraline HCl (Zoloft -) 25 mg PO DAILY [facility] Last Admin: 04/09/18 10:20 Dose: 25 mg Tamsulosin HCl (Flomax -) 0.4 mg PO DAILY@0830 [facility] Last Admin: 04/09/18 10:20 Dose: 0.4 mg Warfarin Sodium (Coumadin -) 3 mg PO DAILY@1800 [facility] Last Admin: 04/09/18 17:34 Dose: 3 mg - Objective Vital Signs: Last Vital Signs Temp Pulse Resp BP Pulse Ox 97.8 F 74 22 H 106/58 L 97 04/09/18 15:27 04/09/18 15:27 04/09/18 15:27 04/09/18 15:27 04/09/18 09:00 Intake & Output 04/06/18 04/07/18 04/08/18 04/09/18 23:59 23:59 23:59 23:59 Intake Total 1200 950 450 Output Total 600 75 150 1125 Balance 600 875 300 -1125 Weight 156 lb Neck: Supple Negative JVD No bruit Respiratory: Diminished breath sounds at the bases Cardiovascular: S1, S2 Irregularly Irregular Gastrointestinal: Soft Benign Normal Bowel Sounds Ext: Negative Edema Labs: CBC, BMP 04/06/18 06:20 04/06/18 06:20 Hepatic Panel Total Bilirubin 0.8 mg/dL (0.2-1) 03/29/18 06:00 AST 16 U/L (15-37) 03/29/18 06:00 ALT 21 U/L (13-61) 03/29/18 06:00 Alkaline Phosphatase 124 U/L (45-117) H 03/29/18 06:00 Albumin 2.0 g/dl (3.4-5.0) L 03/29/18 06:00 INR, PTT INR 1.30 (0.83-1.09) H 04/09/18 07:00 Assessment/Plan ASSESSMENT: 1. Incarcerated spigelian hernia without strangulation, for conservative management as per surgical team considering patient's co-morbidities 2. Right pleural effusion with underlying history of breast carcinoma post mastectomy post chemotherapy, post chest tube insertion 3. 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 CAD post PCI/stent angina pectoris 5. Persistent/chronic atrial fibrillation on A/C, [id number] score of 6 6. AV block post PPM 7. Mitral valve and tricuspid valve regurgitation 8. HTN/HCVD 9. DM 10. Hypercholesterolemia 11. CKD PLAN: 1. Continue anticoagulation therapy/Coumadin as per INR 2. Continue Carvedilol, hemodynamics permitting 3. Continue Entresto, hemodynamics permitting with close monitoring of renal function and potassium level Adriel Phoenix M.D.
[2018-04-09] MEDS: ALBUTEROL SO4 2.5/IPRATROPIUM 0.5 INH SOL 3 ML VIAL.NEB. NEB PRN (21:20)
[2018-04-09] MEDS: MIRTAZAPINE 15 MG TABLET (FP) PO SCH (23:16)
[2018-04-10] MEDS: NYSTATIN POWDER 100,000 UNITS/GM - 15 GM TOPICAL POWDER TP SCH ×3 (06:23→23:23)
[2018-04-10] MEDS: INSULIN SLIDING SCALE (NOVOLOG) 1 VIAL SQ SCH ×2 (06:25→17:47)
[2018-04-10 08:46] LABS: BASO % 0.2 % (0-2.0); EOS % 1.6 % (0-4.5); HEMATOCRIT 29.2 % (35.4-49); HEMOGLOBIN 9.7 GM/dL (11.7-16.9); LYMPH % 16.2 % (8-40); MCH 31.6 pg (25.7-33.7); MCHC 33.1 g/dl (32.0-35.9); MEAN CELL VOLUME 95.5 fl (80-96); MEAN PLT VOLUME 8.8 fl (7.5-11.1); MONO % 11.5 % (3.8-10.2); NEUT % 70.5 % (42.8-82.8); PLATELET COUNT 191 K/MM3 (134-434); RBC 3.06 M/mm3 (4.00-5.60); RDW 16.1 % (11.9-15.9); WHITE BLOOD COUNT 3.9 K/mm3 (4.0-10.0)
[2018-04-10] MEDS ORDERED: PT OWN MED DRAWER 7, Y5N ONE ×3 (09:13→20:57)
[2018-04-10 09:20] LABS: ALBUMIN 1.5 g/dl (3.4-5.0); ALK PHOS 163 U/L (45-117); ANION GAP 6 MMOL/L (8-16); BILIRUBIN,TOTAL 0.7 mg/dL (0.2-1); BLOOD UREA NITROGEN 47 mg/dL (7-18); CALCIUM 8.6 mg/dL (8.5-10.1); CHLORIDE 107 mmol/L (98-107); CO2 27 mmol/L (21-32); CREATININE 1.8 mg/dL (0.55-1.3); GLUCOSE,RANDOM 76 mg/dL (74-106); POTASSIUM 4.7 mmol/L (3.5-5.1); SGOT/AST 28 U/L (15-37); SGPT/ALT 32 U/L (13-61); SODIUM 141 mmol/L (136-145); TOT PROT 4.7 g/dl (6.4-8.2)
[2018-04-10] MEDS: PANTOPRAZOLE 40 MG TABLET (FP) PO SCH (09:20)
[2018-04-10] MEDS: TAMSULOSIN HCL 0.4 MG CAP PO SCH (09:20)
[2018-04-10] MEDS: POLYETHYLENE GLYCOL 3350 119 GM BTL PO SCH ×2 (09:20→23:23)
[2018-04-10] MEDS: SERTRALINE HCL 25 MG TABLET (FP) PO SCH (09:20)
[2018-04-10] MEDS: CARVEDILOL 25 MG TABLET (FP) PO SCH ×2 (09:22→23:24)
[2018-04-10] MEDS: SACUBITRIL/VALSARTAN 24 MG-26 MG TABLET PO SCH ×2 (09:22→23:24)
[2018-04-10 09:40] LABS: INR 1.27 (0.83-1.09)
--- NOTE | 2018-04-10 11:05 | PN ---
Progress Note (short form) - Note Progress Note: pt seen/ examined comfortable. no new issues Vital Signs Temp 98.0 F 04/10/18 09:18 Pulse 66 04/10/18 09:18 Resp 19 04/10/18 09:18 BP 98/55 L 04/10/18 09:18 Pulse Ox 97 04/10/18 09:00 Intake & Output 04/09/18 04/09/18 04/10/18 11:59 23:59 11:59 Intake Total 900 Output Total 1125 1280 550 Balance -1125 -380 -550 Intake: Oral 900 Output: Chest Tube Drainage 1125 880 250 Right Mediastinal 1125 880 250 Urine 400 300 Void 400 300 Other: Voiding Method Urinal Urinal Urinal # Unmeasured Voids Void 3 0 Bowel Movement No No No Active Medications Acetaminophen (Tylenol -) 650 mg PO Q6H PRN PRN Reason: MODERATE PAIN Last Admin: 04/06/18 10:50 Dose: 650 mg Albuterol/Ipratropium (Duoneb -) 1 amp NEB Q6H PRN PRN Reason: SHORTNESS OF BREATH Last Admin: 04/09/18 21:20 Dose: 1 amp Carvedilol (Coreg -) 25 mg PO BID [facility] Last Admin: 04/10/18 09:22 Dose: Not Given Dextrose (Glucose Tablet -) 4 gm PO ONCE PRN PRN Reason: BG < 60mg/dl Last Admin: 04/06/18 06:26 Dose: 4 gm Guaifenesin (Robitussin -) 10 ml PO Q6H PRN PRN Reason: COUGH Last Admin: 04/02/18 22:15 Dose: 10 ml Insulin Aspart (Novolog Vial Sliding Scale -) 1 vial SQ BIDI [facility]; Protocol Last Admin: 04/10/18 06:25 Dose: Not Given Mirtazapine (Remeron -) 7.5 mg PO HS [facility] Last Admin: 04/09/18 23:16 Dose: Not Given Nystatin (Nystop Powder -) 1 applic TP QSHIFT [facility] Last Admin: 04/10/18 06:23 Dose: 1 applic Pantoprazole Sodium (Protonix -) 40 mg PO DAILY [facility] Last Admin: 04/10/18 09:20 Dose: 40 mg Polyethylene Glycol (Miralax (For Daily Use) -) 17 gm PO BID [facility] Last Admin: 04/10/18 09:20 Dose: 17 grams Sacubitril/Valsartan (Entresto 24 Mg-26 Mg Tablet) 1 tab PO BID [facility] Last Admin: 04/10/18 09:22 Dose: Not Given Senna (Senna -) 2 tab PO HS PRN PRN Reason: CONSTIPATION Last Admin: 04/07/18 00:08 Dose: 2 tab Sertraline HCl (Zoloft -) 25 mg PO DAILY [facility] Last Admin: 04/10/18 09:20 Dose: 25 mg Tamsulosin HCl (Flomax -) 0.4 mg PO DAILY@0830 [facility] Last Admin: 04/10/18 09:20 Dose: 0.4 mg Warfarin Sodium (Coumadin -) 3 mg PO DAILY@1800 [facility] Last Admin: 04/09/18 17:34 Dose: 3 mg CBC, BMP 04/10/18 07:45 04/10/18 07:45 INR, PTT INR 1.27 (0.83-1.09) H 04/10/18 07:45 Physical Examination Constitutional: Yes: No Distress, comfortable Cardiovascular: Yes: Regular Rate and Rhythm Respiratory: Yes: Diminished - chest tube Gastrointestinal: Yes: soft/ hernia + bs present, NT Edema: No Neuro- Alert/ awake a/p stable c tube functioning well now f/u labs restarted on coumadin will follow. 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 (5) Ascites Code(s): R18.8 - OTHER ASCITES Qualifiers: Ascites type: other type Qualified Code(s): R18.8 - Other ascites (6) Breast cancer in male Code(s): C50.929 - MALIGNANT NEOPLASM OF UNSP SITE OF UNSPECIFIED MALE BREAST (7) Chronic kidney disease (CKD) Code(s): N18.9 - CHRONIC KIDNEY DISEASE, UNSPECIFIED Qualifiers: Chronic kidney disease stage: unspecified stage Qualified Code(s): N18.9 - Chronic kidney disease, unspecified (8) Coronary artery disease Code(s): I25.10 - ATHSCL HEART DISEASE OF [place] CORONARY ARTERY W/O ANG PCTRS Qualifiers: Coronary Disease-Associated Artery/Lesion type: [place] artery [place] vs. transplanted heart: [place] heart Associated angina: without angina Qualified Code(s): I25.10 - Atherosclerotic heart disease of [place] coronary artery without angina pectoris (9) Pacemaker Code(s): Z95.0 - PRESENCE OF CARDIAC PACEMAKER (10) Pleural effusion Code(s): J90 - PLEURAL EFFUSION, NOT ELSEWHERE CLASSIFIED
--- NOTE | 2018-04-10 11:41 | PN ---
Progress Note (short form) - Note Progress Note: Awake and alert. Pleural catheter continues to drain. Denies CP. SOB is better. CXR: Improving aeration on the right Intake & Output 04/07/18 04/08/18 04/09/18 04/10/18 23:59 23:59 23:59 23:59 Intake Total 950 450 900 Output Total 75 150 2405 550 Balance 875 300 -1505 -550 Weight 156 lb Last Vital Signs Temp Pulse Resp BP Pulse Ox 98.0 F 66 19 98/55 L 97 04/10/18 09:18 04/10/18 09:18 04/10/18 09:18 04/10/18 09:18 04/10/18 09:00 Active Medications Acetaminophen (Tylenol -) 650 mg PO Q6H PRN PRN Reason: MODERATE PAIN Last Admin: 04/06/18 10:50 Dose: 650 mg Carvedilol (Coreg -) 25 mg PO BID [facility] Last Admin: 04/10/18 09:22 Dose: Not Given Dextrose (Glucose Tablet -) 4 gm PO ONCE PRN PRN Reason: BG < 60mg/dl Last Admin: 04/06/18 06:26 Dose: 4 gm Guaifenesin (Robitussin -) 10 ml PO Q6H PRN PRN Reason: COUGH Last Admin: 04/02/18 22:15 Dose: 10 ml Insulin Aspart (Novolog Vial Sliding Scale -) 1 vial SQ BIDI [facility]; Protocol Last Admin: 04/10/18 06:25 Dose: Not Given Mirtazapine (Remeron -) 7.5 mg PO HS [facility] Last Admin: 04/09/18 23:16 Dose: Not Given Nystatin (Nystop Powder -) 1 applic TP QSHIFT [facility] Last Admin: 04/10/18 06:23 Dose: 1 applic Pantoprazole Sodium (Protonix -) 40 mg PO DAILY [facility] Last Admin: 04/10/18 09:20 Dose: 40 mg Polyethylene Glycol (Miralax (For Daily Use) -) 17 gm PO BID [facility] Last Admin: 04/10/18 09:20 Dose: 17 grams Sacubitril/Valsartan (Entresto 24 Mg-26 Mg Tablet) 1 tab PO BID [facility] Last Admin: 04/10/18 09:22 Dose: Not Given Senna (Senna -) 2 tab PO HS PRN PRN Reason: CONSTIPATION Last Admin: 04/07/18 00:08 Dose: 2 tab Sertraline HCl (Zoloft -) 25 mg PO DAILY [facility] Last Admin: 04/10/18 09:20 Dose: 25 mg Tamsulosin HCl (Flomax -) 0.4 mg PO DAILY@0830 [facility] Last Admin: 04/10/18 09:20 Dose: 0.4 mg Warfarin Sodium (Coumadin -) 3 mg PO DAILY@1800 [facility] Last Admin: 04/09/18 17:34 Dose: 3 mg Constitutional: Yes: Calm, Thin Eyes: Yes: WNL HENT: Yes: WNL Neck: Yes: WNL Cardiovascular: Yes: Pulse Irregular, S1, S2 Respiratory: Yes: Diminished, right pleural catheter intact Gastrointestinal: Yes: Normal Bowel Sounds, Soft Extremities: Yes: WNL Edema: No Labs: Laboratory Results - last 24 hr 04/10/18 04/10/18 04/10/18 06:21 07:45 07:45 WBC 3.9 L RBC 3.06 L Hgb 9.7 L Hct 29.2 L MCV 95.5 MCH 31.6 MCHC 33.1 RDW 16.1 H Plt Count 191 MPV 8.8 Absolute Neuts (auto) 2.7 Neutrophils % 70.5 Lymphocytes % 16.2 D Monocytes % 11.5 H Eosinophils % 1.6 D Basophils % 0.2 Nucleated RBC % 0 PT with INR 15.00 H INR 1.27 H Sodium Potassium Chloride Carbon Dioxide Anion Gap BUN Creatinine Creat Clearance w eGFR POC Glucometer 97 Random Glucose Calcium Total Bilirubin AST ALT Alkaline Phosphatase Total Protein Albumin 04/10/18 07:45 WBC RBC Hgb Hct MCV MCH MCHC RDW Plt Count MPV Absolute Neuts (auto) Neutrophils % Lymphocytes % Monocytes % Eosinophils % Basophils % Nucleated RBC % PT with INR INR Sodium 141 Potassium 4.7 Chloride 107 Carbon Dioxide 27 Anion Gap 6 L BUN 47 H Creatinine 1.8 H Creat Clearance w eGFR 36.39 POC Glucometer Random Glucose 76 Calcium 8.6 Total Bilirubin 0.7 AST 28 ALT 32 Alkaline Phosphatase 163 H Total Protein 4.7 L Albumin 1.5 L Assessment/Plan Problem List - Problems (1) Incarcerated hernia Code(s): K46.0 - UNSP ABDOMINAL HERNIA WITH OBSTRUCTION, WITHOUT GANGRENE NOT A SURGICAL CANDIDATE (2) Acute on chronic renal failure Code(s): N17.9 - ACUTE KIDNEY FAILURE, UNSPECIFIED; N18.9 - CHRONIC KIDNEY DISEASE, UNSPECIFIED Qualifiers: Chronic kidney disease stage: stage 3 (moderate) (3) Afib Code(s): I48.91 - UNSPECIFIED ATRIAL FIBRILLATION Qualifiers: Atrial fibrillation type: persistent Qualified Code(s): I48.1 - Persistent atrial fibrillation (4) Anemia Code(s): D64.9 - ANEMIA, UNSPECIFIED Qualifiers: Anemia type: unspecified type Qualified Code(s): D64.9 - Anemia, unspecified (5) Anticoagulated on Coumadin Code(s): Z79.01 - LACE PINNER (CURRENT) USE OF ANTICOAGULANTS (6) Coronary artery disease Code(s): I25.10 - ATHSCL HEART DISEASE OF [place] CORONARY ARTERY W/O ANG PCTRS Qualifiers: Coronary Disease-Associated Artery/Lesion type: [place] artery [place] vs. transplanted heart: [place] heart Associated angina: without angina Qualified Code(s): I25.10 - Atherosclerotic heart disease of [place] coronary artery without angina pectoris (7) HTN (hypertension) Code(s): I10 - ESSENTIAL (PRIMARY) HYPERTENSION Qualifiers: Hypertension type: essential hypertension Qualified Code(s): I10 - Essential (primary) hypertension (8) Hyperlipidemia Code(s): E78.5 - HYPERLIPIDEMIA, UNSPECIFIED Qualifiers: Hyperlipidemia type: pure hypercholesterolemia Qualified Code(s): E78.00 - Pure hypercholesterolemia, unspecified; E78.0 - Pure hypercholesterolemia (9) Pacemaker Code(s): Z95.0 - PRESENCE OF CARDIAC PACEMAKER (10) Pleural effusion, right Code(s): J90 - PLEURAL EFFUSION, NOT ELSEWHERE CLASSIFIED (11) Pulmonary hypertension Code(s): I27.2 - OTHER SECONDARY PULMONARY HYPERTENSION * DO NOT USE * (12) Sick sinus syndrome Code(s): I49.5 - SICK SINUS SYNDROME (13) Status post coronary artery stent placement Code(s): Z95.5 - PRESENCE OF CORONARY ANGIOPLASTY IMPLANT AND GRAFT (14) Supratherapeutic INR Code(s): R79.1 - ABNORMAL COAGULATION PROFILE (15) Systolic and diastolic CHF, acute on chronic Code(s): I50.43 - ACUTE ON CHRONIC COMBINED SYSTOLIC AND DIASTOLIC HRT FAIL (16) Type 2 diabetes mellitus Code(s): E11.9 - TYPE 2 DIABETES MELLITUS WITHOUT COMPLICATIONS Qualifiers: Diabetes mellitus complication status: with kidney complications Diabetes mellitus complication detail: with chronic kidney disease Chronic kidney disease stage: stage 3 (moderate) A/P Incarcerated Hernia Right Pleural Effusion S/P chest tube h/o Breast Ca Acute on Chronic Renal Failure LV Systolic Dysfunction CAD Atrial Fibrillation/AV block s/p PPM Mitral Regurgitation HTN DM Supratherapeutic INR - inhaled bronchodilators - O2 to keep SpO2 >90% - Monitor pleural catheter drainage - Incentive Spirometry - Follow CXR in AM Dr [place]
--- NOTE | 2018-04-10 14:54 | PN ---
Progress Note (short form) - Note Progress Note: Chief Complaint: Events noted, notes reviewed, Denies any chest discomfort, reports persistent dyspnea but improved History of Present Illness: Seen and examined. Events noted, notes reviewed, Denies any chest discomfort, reports persistent dyspnea Echocardiography dated 02/09/2018 revealed normal LV size with severely decreased LV systolic function, severe TR, severe pulmonary HTN, pacer in RV Current Medications: Current Medications Acetaminophen (Tylenol -) 650 mg PO Q6H PRN PRN Reason: MODERATE PAIN Last Admin: 04/06/18 10:50 Dose: 650 mg Carvedilol (Coreg -) 25 mg PO BID [facility] Last Admin: 04/10/18 09:22 Dose: Not Given Dextrose (Glucose Tablet -) 4 gm PO ONCE PRN PRN Reason: BG < 60mg/dl Last Admin: 04/06/18 06:26 Dose: 4 gm Guaifenesin (Robitussin -) 10 ml PO Q6H PRN PRN Reason: COUGH Last Admin: 04/02/18 22:15 Dose: 10 ml Insulin Aspart (Novolog Vial Sliding Scale -) 1 vial SQ BIDI [facility]; Protocol Last Admin: 04/10/18 06:25 Dose: Not Given Mirtazapine (Remeron -) 7.5 mg PO HS [facility] Last Admin: 04/09/18 23:16 Dose: Not Given Nystatin (Nystop Powder -) 1 applic TP QSHIFT [facility] Last Admin: 04/10/18 06:23 Dose: 1 applic Pantoprazole Sodium (Protonix -) 40 mg PO DAILY [facility] Last Admin: 04/10/18 09:20 Dose: 40 mg Polyethylene Glycol (Miralax (For Daily Use) -) 17 gm PO BID [facility] Last Admin: 04/10/18 09:20 Dose: 17 grams Sacubitril/Valsartan (Entresto 24 Mg-26 Mg Tablet) 1 tab PO BID [facility] Last Admin: 04/10/18 09:22 Dose: Not Given Senna (Senna -) 2 tab PO HS PRN PRN Reason: CONSTIPATION Last Admin: 04/07/18 00:08 Dose: 2 tab Sertraline HCl (Zoloft -) 25 mg PO DAILY [facility] Last Admin: 04/10/18 09:20 Dose: 25 mg Tamsulosin HCl (Flomax -) 0.4 mg PO DAILY@0830 [facility] Last Admin: 04/10/18 09:20 Dose: 0.4 mg Warfarin Sodium (Coumadin -) 3 mg PO DAILY@1800 [facility] Last Admin: 04/09/18 17:34 Dose: 3 mg - Objective Vital Signs: Last Vital Signs Temp Pulse Resp BP Pulse Ox 98.0 F 88 17 126/82 97 04/10/18 09:18 04/10/18 13:50 04/10/18 13:50 04/10/18 13:50 04/10/18 09:00 Intake & Output 04/07/18 04/08/18 04/09/18 04/10/18 23:59 23:59 23:59 23:59 Intake Total 950 450 900 Output Total 75 150 2405 550 Balance 875 300 -1505 -550 Weight 156 lb Neck: Supple Negative JVD No bruit Respiratory: Diminished breath sounds at the bases Cardiovascular: S1, S2 Irregularly Irregular Gastrointestinal: Soft Benign Normal Bowel Sounds Ext: Negative Edema Labs: CBC, BMP 04/10/18 07:45 04/10/18 07:45 INR, PTT INR 1.27 (0.83-1.09) H 04/10/18 07:45 Assessment/Plan ASSESSMENT: 1. Incarcerated spigelian hernia without strangulation, for conservative management as per surgical team considering patient's co-morbidities 2. Right pleural effusion with underlying history of breast carcinoma post mastectomy post chemotherapy, post chest tube insertion 3. 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 CAD post PCI/stent angina pectoris 5. Persistent/chronic atrial fibrillation on A/C, [id number] score of 6 6. AV block post PPM 7. Mitral valve and tricuspid valve regurgitation 8. HTN/HCVD 9. DM 10. Hypercholesterolemia 11. CKD PLAN: 1. Continue anticoagulation therapy/Coumadin as per INR 2. Continue Carvedilol, hemodynamics permitting 3. Continue Entresto, hemodynamics permitting with close monitoring of renal function and potassium level Adriel Phoenix M.D.
[2018-04-10] MEDS: WARFARIN NA 3 MG TABLET PO SCH (17:46)
[2018-04-10] MEDS: MIRTAZAPINE 15 MG TABLET (FP) PO SCH (23:24)
[2018-04-11] MEDS: NYSTATIN POWDER 100,000 UNITS/GM - 15 GM TOPICAL POWDER TP SCH ×3 (07:46→23:30)
[2018-04-11] MEDS: INSULIN SLIDING SCALE (NOVOLOG) 1 VIAL SQ SCH ×2 (07:46→16:31)
[2018-04-11] MEDS: TAMSULOSIN HCL 0.4 MG CAP PO SCH (09:19)
[2018-04-11] MEDS: CARVEDILOL 25 MG TABLET (FP) PO SCH ×2 (10:41→23:30)
[2018-04-11] MEDS: PANTOPRAZOLE 40 MG TABLET (FP) PO SCH (10:42)
[2018-04-11] MEDS: SACUBITRIL/VALSARTAN 24 MG-26 MG TABLET PO SCH ×2 (10:42→23:29)
[2018-04-11] MEDS: SERTRALINE HCL 25 MG TABLET (FP) PO SCH (10:42)
[2018-04-11] MEDS: POLYETHYLENE GLYCOL 3350 119 GM BTL PO SCH ×2 (10:43→23:30)
--- NOTE | 2018-04-11 11:57 | PN ---
Progress Note (short form) - Note Progress Note: pt seen/ examined comfortable draining chest tube now Vital Signs Temp 97.2 F L 04/11/18 10:00 Pulse 56 L 04/11/18 10:00 Resp 20 04/11/18 10:00 BP 94/62 04/11/18 10:00 Pulse Ox 98 04/10/18 21:00 Intake & Output 04/10/18 04/10/18 04/11/18 11:59 23:59 11:59 Intake Total 500 400 Output Total 550 675 250 Balance -550 -175 150 Intake: Oral 500 400 Output: Chest Tube Drainage 250 125 150 Right Mediastinal 250 125 150 Urine 300 550 100 Void 300 550 100 Other: Voiding Method Urinal Urinal Urinal Bowel Movement No No # Bowel Movements 1 Active Medications Acetaminophen (Tylenol -) 650 mg PO Q6H PRN PRN Reason: MODERATE PAIN Last Admin: 04/06/18 10:50 Dose: 650 mg Carvedilol (Coreg -) 25 mg PO BID [facility] Last Admin: 04/11/18 10:41 Dose: Not Given Dextrose (Glucose Tablet -) 4 gm PO ONCE PRN PRN Reason: BG < 60mg/dl Last Admin: 04/06/18 06:26 Dose: 4 gm Guaifenesin (Robitussin -) 10 ml PO Q6H PRN PRN Reason: COUGH Last Admin: 04/02/18 22:15 Dose: 10 ml Insulin Aspart (Novolog Vial Sliding Scale -) 1 vial SQ BIDI [facility]; Protocol Last Admin: 04/11/18 07:46 Dose: Not Given Mirtazapine (Remeron -) 7.5 mg PO [facility] Last Admin: 04/10/18 23:24 Dose: Not Given Nystatin (Nystop Powder -) 1 applic TP QSHIFT [facility] Last Admin: 04/11/18 07:46 Dose: Not Given Pantoprazole Sodium (Protonix -) 40 mg PO DAILY [facility] Last Admin: 04/11/18 10:42 Dose: 40 mg Polyethylene Glycol (Miralax (For Daily Use) -) 17 gm PO BID [facility] Last Admin: 04/11/18 10:43 Dose: Not Given Sacubitril/Valsartan (Entresto 24 Mg-26 Mg Tablet) 1 tab PO BID [facility] Last Admin: 04/11/18 10:42 Dose: 1 tab Senna (Senna -) 2 tab PO HS PRN PRN Reason: CONSTIPATION Last Admin: 04/07/18 00:08 Dose: 2 tab Sertraline HCl (Zoloft -) 25 mg PO DAILY [facility] Last Admin: 04/11/18 10:42 Dose: 25 mg Tamsulosin HCl (Flomax -) 0.4 mg PO DAILY@0830 [facility] Last Admin: 04/11/18 09:19 Dose: 0.4 mg Warfarin Sodium (Coumadin -) 3 mg PO DAILY@1800 [facility] Last Admin: 04/10/18 17:46 Dose: 3 mg Warfarin Sodium (Coumadin -) 2 mg PO ONCE@1800 ONE Stop: 04/11/18 18:01 CBC, BMP 04/10/18 07:45 04/10/18 07:45 cxr-- improved . Physical Examination Constitutional: Yes: No Distress, comfortable Cardiovascular: Yes: Regular Rate and Rhythm Respiratory: Yes: Diminished - chest tube Gastrointestinal: Yes: soft/ hernia + bs present, NT Edema: No Neuro- Alert/ awake a/p stable c tube functioning well f/u labs restarted on coumadin-- extra dose today will follow. Problem List - Problems (1) Incarcerated hernia Code(s): K46.0 - UNSP ABDOMINAL HERNIA WITH OBSTRUCTION, WITHOUT GANGRENE (2) Abnormal INR Code(s): R79.1 - ABNORMAL COAGULATION PROFILE (3) Afib Code(s): I48.91 - UNSPECIFIED ATRIAL FIBRILLATION Qualifiers: Atrial fibrillation type: persistent Qualified Code(s): I48.1 - Persistent atrial fibrillation (4) Anticoagulated on Coumadin Code(s): Z79.01 - STRUCTURAL WELDER (CURRENT) USE OF ANTICOAGULANTS (5) Ascites Code(s): R18.8 - OTHER ASCITES Qualifiers: Ascites type: other type Qualified Code(s): R18.8 - Other ascites (6) Breast cancer in male Code(s): C50.929 - MALIGNANT NEOPLASM OF UNSP SITE OF UNSPECIFIED MALE BREAST (7) Chronic kidney disease (CKD) Code(s): N18.9 - CHRONIC KIDNEY DISEASE, UNSPECIFIED Qualifiers: Chronic kidney disease stage: unspecified stage Qualified Code(s): N18.9 - Chronic kidney disease, unspecified (8) Coronary artery disease Code(s): I25.10 - ATHSCL HEART DISEASE OF [place] CORONARY ARTERY W/O ANG PCTRS Qualifiers: Coronary Disease-Associated Artery/Lesion type: [place] artery [place] vs. transplanted heart: [place] heart Associated angina: without angina Qualified Code(s): I25.10 - Atherosclerotic heart disease of [place] coronary artery without angina pectoris (9) Pacemaker Code(s): Z95.0 - PRESENCE OF CARDIAC PACEMAKER (10) Pleural effusion Code(s): J90 - PLEURAL EFFUSION, NOT ELSEWHERE CLASSIFIED
--- NOTE | 2018-04-11 12:17 | PN ---
Progress Note, Physician History of Present Illness: Resting, dyspnea and cough resolved. Right chest tube draining again. - Current Medication List Current Medications: Active Medications Acetaminophen (Tylenol -) 650 mg PO Q6H PRN PRN Reason: MODERATE PAIN Last Admin: 04/06/18 10:50 Dose: 650 mg Carvedilol (Coreg -) 25 mg PO BID [facility] Last Admin: 04/11/18 10:41 Dose: Not Given Dextrose (Glucose Tablet -) 4 gm PO ONCE PRN PRN Reason: BG < 60mg/dl Last Admin: 04/06/18 06:26 Dose: 4 gm Guaifenesin (Robitussin -) 10 ml PO Q6H PRN PRN Reason: COUGH Last Admin: 04/02/18 22:15 Dose: 10 ml Insulin Aspart (Novolog Vial Sliding Scale -) 1 vial SQ [facility]IDI [facility]; Protocol Last Admin: 04/11/18 07:46 Dose: Not Given Mirtazapine (Remeron -) 7.5 mg PO HS [facility] Last Admin: 04/10/18 23:24 Dose: Not Given Nystatin (Nystop Powder -) 1 applic TP QSHIFT [facility] Last Admin: 04/11/18 07:46 Dose: Not Given Pantoprazole Sodium (Protonix -) 40 mg PO DAILY [facility] Last Admin: 04/11/18 10:42 Dose: 40 mg Polyethylene Glycol (Miralax (For Daily Use) -) 17 gm PO BID [facility] Last Admin: 04/11/18 10:43 Dose: Not Given Sacubitril/Valsartan (Entresto 24 Mg-26 Mg Tablet) 1 tab PO BID [facility] Last Admin: 04/11/18 10:42 Dose: 1 tab Senna (Senna -) 2 tab PO HS PRN PRN Reason: CONSTIPATION Last Admin: 04/07/18 00:08 Dose: 2 tab Sertraline HCl (Zoloft -) 25 mg PO DAILY [facility] Last Admin: 04/11/18 10:42 Dose: 25 mg Tamsulosin HCl (Flomax -) 0.4 mg PO DAILY@0830 [facility] Last Admin: 04/11/18 09:19 Dose: 0.4 mg Warfarin Sodium (Coumadin -) 3 mg PO DAILY@1800 [facility] Last Admin: 04/10/18 17:46 Dose: 3 mg Warfarin Sodium (Coumadin -) 2 mg PO ONCE@1800 ONE Stop: 04/11/18 18:01 - Objective Vital Signs: Vital Signs Temperature 97.2 F L 04/11/18 10:00 Pulse Rate 56 L 04/11/18 10:00 Respiratory Rate 20 04/11/18 10:00 Blood Pressure 94/62 04/11/18 10:00 O2 Sat by Pulse Oximetry (%) 98 04/10/18 21:00 Constitutional: Yes: No Distress, Calm, Thin Neck: Yes: Supple Cardiovascular: Yes: Regular Rate and Rhythm Respiratory: Yes: Regular, Diminished Gastrointestinal: Yes: Normal Bowel Sounds, Soft Edema: No Labs: CBC, BMP 04/10/18 07:45 04/10/18 07:45 INR, PTT INR 1.27 (0.83-1.09) H 04/10/18 07:45 - ....Imaging Chest X-ray: Report Reviewed (Right effusion with chest tube in place) Problem List - Problems (1) Incarcerated hernia Code(s): K46.0 - UNSP ABDOMINAL HERNIA WITH OBSTRUCTION, WITHOUT GANGRENE (2) Acute on chronic renal failure Code(s): N17.9 - ACUTE KIDNEY FAILURE, UNSPECIFIED; N18.9 - CHRONIC KIDNEY DISEASE, UNSPECIFIED Qualifiers: Chronic kidney disease stage: stage 3 (moderate) (3) Afib Code(s): I48.91 - UNSPECIFIED ATRIAL FIBRILLATION Qualifiers: Atrial fibrillation type: persistent Qualified Code(s): I48.1 - Persistent atrial fibrillation (4) Anemia Code(s): D64.9 - ANEMIA, UNSPECIFIED Qualifiers: Anemia type: unspecified type Qualified Code(s): D64.9 - Anemia, unspecified (5) Anticoagulated on Coumadin Code(s): Z79.01 - SENIOR LIVING (CURRENT) USE OF ANTICOAGULANTS (6) Coronary artery disease Code(s): I25.10 - ATHSCL HEART DISEASE OF [place] CORONARY ARTERY W/O ANG PCTRS Qualifiers: Coronary Disease-Associated Artery/Lesion type: [place] artery [place] vs. transplanted heart: [place] heart Associated angina: without angina Qualified Code(s): I25.10 - Atherosclerotic heart disease of [place] coronary artery without angina pectoris (7) HTN (hypertension) Code(s): I10 - ESSENTIAL (PRIMARY) HYPERTENSION Qualifiers: Hypertension type: essential hypertension Qualified Code(s): I10 - Essential (primary) hypertension (8) Hyperlipidemia Code(s): E78.5 - HYPERLIPIDEMIA, UNSPECIFIED Qualifiers: Hyperlipidemia type: pure hypercholesterolemia Qualified Code(s): E78.00 - Pure hypercholesterolemia, unspecified; E78.0 - Pure hypercholesterolemia (9) Pacemaker Code(s): Z95.0 - PRESENCE OF CARDIAC PACEMAKER (10) Pleural effusion, right Code(s): J90 - PLEURAL EFFUSION, NOT ELSEWHERE CLASSIFIED (11) Pulmonary hypertension Code(s): I27.2 - OTHER SECONDARY PULMONARY HYPERTENSION * DO NOT USE * (12) Sick sinus syndrome Code(s): I49.5 - SICK SINUS SYNDROME (13) Status post coronary artery stent placement Code(s): Z95.5 - PRESENCE OF CORONARY ANGIOPLASTY IMPLANT AND GRAFT (14) Systolic and diastolic CHF, acute on chronic Code(s): I50.43 - ACUTE ON CHRONIC COMBINED SYSTOLIC AND DIASTOLIC HRT FAIL (15) Type 2 diabetes mellitus Code(s): E11.9 - TYPE 2 DIABETES MELLITUS WITHOUT COMPLICATIONS Qualifiers: Diabetes mellitus complication status: with kidney complications Diabetes mellitus complication detail: with chronic kidney disease Chronic kidney disease stage: stage 3 (moderate) Assessment/Plan 02/09/2018 Echo: Normal LV size with severely decreased LV fxn, severe TR, severe pulm HTN, pacer in RV 1. Incarcerated spigelian hernia without strangulation, for conservative management 2. Right pleural effusion with underlying history of breast carcinoma post mastectomy post chemotherapy, s/p pigtail catheter placement and chest tube 3. 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 CAD post PCI/stent angina pectoris 5. Persistent/chronic atrial fibrillation on anticoagulation, [id number] score of 6, with subtherapeutic INR 6. AV block post PPM 7. Mitral valve and tricuspid valve regurgitation 8. HTN/HCVD 9. DM 10. Hypercholesterolemia 11. Acute on CKD with proteinuria and hyperkalemia resolving PLAN: 1. Continue Coumadin per INR 2. Continue Carvedilol 25 mg BID as tolerated (BP permitting) 3. Entresto 24/26 mg BID once acute on CKD with hyperkalemia resolves to baseline 4. Chest tube management, bronchodilator and O2 as needed
--- NOTE | 2018-04-11 12:52 | PN ---
Progress Note, Physician History of Present Illness: PULMONARY SLEEPY,NO DISTRESS,CHEST TUBE DRAINING 150CC - Current Medication List Current Medications: Active Medications Acetaminophen (Tylenol -) 650 mg PO Q6H PRN PRN Reason: MODERATE PAIN Last Admin: 04/06/18 10:50 Dose: 650 mg Carvedilol (Coreg -) 25 mg PO BID [facility] Last Admin: 04/11/18 10:41 Dose: Not Given Dextrose (Glucose Tablet -) 4 gm PO ONCE PRN PRN Reason: BG < 60mg/dl Last Admin: 04/06/18 06:26 Dose: 4 gm Guaifenesin (Robitussin -) 10 ml PO Q6H PRN PRN Reason: COUGH Last Admin: 04/02/18 22:15 Dose: 10 ml Insulin Aspart (Novolog Vial Sliding Scale -) 1 vial SQ BIDI [facility]; Protocol Last Admin: 04/11/18 07:46 Dose: Not Given Mirtazapine (Remeron -) 7.5 mg PO HS [facility] Last Admin: 04/10/18 23:24 Dose: Not Given Nystatin (Nystop Powder -) 1 applic TP QSHIFT [facility] Last Admin: 04/11/18 07:46 Dose: Not Given Pantoprazole Sodium (Protonix -) 40 mg PO DAILY [facility] Last Admin: 04/11/18 10:42 Dose: 40 mg Polyethylene Glycol (Miralax (For Daily Use) -) 17 gm PO BID [facility] Last Admin: 04/11/18 10:43 Dose: Not Given Sacubitril/Valsartan (Entresto 24 Mg-26 Mg Tablet) 1 tab PO BID [facility] Last Admin: 04/11/18 10:42 Dose: 1 tab Senna (Senna -) 2 tab PO HS PRN PRN Reason: CONSTIPATION Last Admin: 04/07/18 00:08 Dose: 2 tab Sertraline HCl (Zoloft -) 25 mg PO DAILY [facility] Last Admin: 04/11/18 10:42 Dose: 25 mg Tamsulosin HCl (Flomax -) 0.4 mg PO DAILY@0830 [facility] Last Admin: 04/11/18 09:19 Dose: 0.4 mg Warfarin Sodium (Coumadin -) 3 mg PO DAILY@1800 [facility] Last Admin: 04/10/18 17:46 Dose: 3 mg Warfarin Sodium (Coumadin -) 2 mg PO ONCE@1800 ONE Stop: 03/04/19 18:01 - Objective Vital Signs: Vital Signs Temperature 97.2 F L 04/11/18 10:00 Pulse Rate 56 L 04/11/18 10:00 Respiratory Rate 20 04/11/18 10:00 Blood Pressure 94/62 04/11/18 10:00 O2 Sat by Pulse Oximetry (%) 98 04/11/18 09:00 Constitutional: Yes: Well Nourished, Calm Eyes: Yes: WNL HENT: Yes: WNL Neck: Yes: WNL Cardiovascular: Yes: Pulse Irregular, S1, S2 Respiratory: Yes: Diminished Gastrointestinal: Yes: Normal Bowel Sounds, Soft Extremities: Yes: WNL Edema: No Labs: CBC, BMP 04/10/18 07:45 Assessment/Plan Problem List - Problems (1) Incarcerated hernia Code(s): K46.0 - UNSP ABDOMINAL HERNIA WITH OBSTRUCTION, WITHOUT GANGRENE NOT A SURGICAL CANDIDATE (2) Acute on chronic renal failure Code(s): N17.9 - ACUTE KIDNEY FAILURE, UNSPECIFIED; N18.9 - CHRONIC KIDNEY DISEASE, UNSPECIFIED Qualifiers: Chronic kidney disease stage: stage 3 (moderate) (3) Afib Code(s): I48.91 - UNSPECIFIED ATRIAL FIBRILLATION Qualifiers: Atrial fibrillation type: persistent Qualified Code(s): I48.1 - Persistent atrial fibrillation (4) Anemia Code(s): D64.9 - ANEMIA, UNSPECIFIED Qualifiers: Anemia type: unspecified type Qualified Code(s): D64.9 - Anemia, unspecified (5) Anticoagulated on Coumadin Code(s): Z79.01 - SNF (CURRENT) USE OF ANTICOAGULANTS (6) Coronary artery disease Code(s): I25.10 - ATHSCL HEART DISEASE OF [place] CORONARY ARTERY W/O ANG PCTRS Qualifiers: Coronary Disease-Associated Artery/Lesion type: [place] artery [place] vs. transplanted heart: [place] heart Associated angina: without angina Qualified Code(s): I25.10 - Atherosclerotic heart disease of [place] coronary artery without angina pectoris (7) HTN (hypertension) Code(s): I10 - ESSENTIAL (PRIMARY) HYPERTENSION Qualifiers: Hypertension type: essential hypertension Qualified Code(s): I10 - Essential (primary) hypertension (8) Hyperlipidemia Code(s): E78.5 - HYPERLIPIDEMIA, UNSPECIFIED Qualifiers: Hyperlipidemia type: pure hypercholesterolemia Qualified Code(s): E78.00 - Pure hypercholesterolemia, unspecified; E78.0 - Pure hypercholesterolemia (9) Pacemaker Code(s): Z95.0 - PRESENCE OF CARDIAC PACEMAKER (10) Pleural effusion, right Code(s): J90 - PLEURAL EFFUSION, NOT ELSEWHERE CLASSIFIED (11) Pulmonary hypertension Code(s): I27.2 - OTHER SECONDARY PULMONARY HYPERTENSION * DO NOT USE * (12) Sick sinus syndrome Code(s): I49.5 - SICK SINUS SYNDROME (13) Status post coronary artery stent placement Code(s): Z95.5 - PRESENCE OF CORONARY ANGIOPLASTY IMPLANT AND GRAFT (14) Supratherapeutic INR Code(s): R79.1 - ABNORMAL COAGULATION PROFILE (15) Systolic and diastolic CHF, acute on chronic Code(s): I50.43 - ACUTE ON CHRONIC COMBINED SYSTOLIC AND DIASTOLIC HRT FAIL (16) Type 2 diabetes mellitus Code(s): E11.9 - TYPE 2 DIABETES MELLITUS WITHOUT COMPLICATIONS Qualifiers: Diabetes mellitus complication status: with kidney complications Diabetes mellitus complication detail: with chronic kidney disease Chronic kidney disease stage: stage 3 (moderate) A/P Incarcerated Hernia Right Pleural Effusion S/P chest tube h/o Breast Ca Acute on Chronic Renal Failure LV Systolic Dysfunction CAD Atrial Fibrillation/AV block s/p PPM Mitral Regurgitation HTN DM - inhaled bronchodilators - O2 to keep SpO2 >90% - monitor chest tube drainage DR AKINS
[2018-04-11 16:10] VITALS: BMI 23.0
[2018-04-11] MEDS ORDERED: WARFARIN NA 2 MG TABLET (UD) PO ONE (18:00)
[2018-04-11] MEDS: WARFARIN NA 3 MG TABLET PO SCH (18:13)
[2018-04-11] MEDS: MIRTAZAPINE 15 MG TABLET (FP) PO SCH (23:30)
[2018-04-12] MEDS: NYSTATIN POWDER 100,000 UNITS/GM - 15 GM TOPICAL POWDER TP SCH ×3 (06:39→21:39)
[2018-04-12] MEDS: INSULIN SLIDING SCALE (NOVOLOG) 1 VIAL SQ SCH ×2 (06:40→16:18)
[2018-04-12 07:30] LABS: INR 1.79 (0.83-1.09); PROTHROMBIN TIME (PATIENT) 21.2 SEC (9.7-13.0)
[2018-04-12 07:37] LABS: BASO % 0.2 % (0-2.0); EOS % 2.4 % (0-4.5); HEMATOCRIT 30.7 % (35.4-49); HEMOGLOBIN 10.5 GM/dL (11.7-16.9); MCH 32.6 pg (25.7-33.7); MCHC 34.2 g/dl (32.0-35.9); MEAN CELL VOLUME 95.5 fl (80-96); MEAN PLT VOLUME 8.3 fl (7.5-11.1); MONO % 12.1 % (3.8-10.2); NEUT % 68.3 % (42.8-82.8); PLATELET COUNT 213 K/MM3 (134-434); RBC 3.22 M/mm3 (4.00-5.60); RDW 15.7 % (11.9-15.9); WHITE BLOOD COUNT 4.5 K/mm3 (4.0-10.0)
[2018-04-12 08:13] LABS: ALBUMIN 1.6 g/dl (3.4-5.0); ALK PHOS 166 U/L (45-117); ANION GAP 5 MMOL/L (8-16); BILIRUBIN,TOTAL 0.7 mg/dL (0.2-1); BLOOD UREA NITROGEN 47 mg/dL (7-18); CALCIUM 9.1 mg/dL (8.5-10.1); CHLORIDE 107 mmol/L (98-107); CO2 28 mmol/L (21-32); CREATININE 1.9 mg/dL (0.55-1.3); GLUCOSE,RANDOM 68 mg/dL (74-106); POTASSIUM 4.5 mmol/L (3.5-5.1); SGOT/AST 14 U/L (15-37); SGPT/ALT 24 U/L (13-61); SODIUM 140 mmol/L (136-145); TOT PROT 4.1 g/dl (6.4-8.2)
[2018-04-12] MEDS: TAMSULOSIN HCL 0.4 MG CAP PO SCH (09:26)
[2018-04-12] MEDS ORDERED: PT OWN MED DRAWER 7, Y5N ONE (09:34)
[2018-04-12] MEDS: SERTRALINE HCL 25 MG TABLET (FP) PO SCH (09:36)
[2018-04-12] MEDS: PANTOPRAZOLE 40 MG TABLET (FP) PO SCH (09:36)
[2018-04-12] MEDS: CARVEDILOL 25 MG TABLET (FP) PO SCH ×2 (09:37→21:36)
[2018-04-12] MEDS: SACUBITRIL/VALSARTAN 24 MG-26 MG TABLET PO SCH ×2 (09:37→21:39)
[2018-04-12] MEDS: POLYETHYLENE GLYCOL 3350 119 GM BTL PO SCH ×2 (09:46→21:39)
--- NOTE | 2018-04-12 10:48 | PN ---
Progress Note, Physician Chief Complaint: Events noted No chest pain or SOB History of Present Illness: Patient was seen and examined. Chart was reviewed Not in distress - Current Medication List Current Medications: Active Medications Acetaminophen (Tylenol -) 650 mg PO Q6H PRN PRN Reason: MODERATE PAIN Last Admin: 04/06/18 10:50 Dose: 650 mg Carvedilol (Coreg -) 25 mg PO BID [facility] Last Admin: 04/12/18 09:37 Dose: Not Given Dextrose (Glucose Tablet -) 4 gm PO ONCE PRN PRN Reason: BG < 60mg/dl Last Admin: 04/06/18 06:26 Dose: 4 gm Guaifenesin (Robitussin -) 10 ml PO Q6H PRN PRN Reason: COUGH Last Admin: 04/02/18 22:15 Dose: 10 ml Insulin Aspart (Novolog Vial Sliding Scale -) 1 vial SQ BIDI [facility]; Protocol Last Admin: 04/12/18 06:40 Dose: Not Given Mirtazapine (Remeron -) 7.5 mg PO HS [facility] Last Admin: 04/11/18 23:30 Dose: Not Given Nystatin (Nystop Powder -) 1 applic TP QSHIFT [facility] Last Admin: 04/12/18 06:39 Dose: 1 applic Pantoprazole Sodium (Protonix -) 40 mg PO DAILY [facility] Last Admin: 04/12/18 09:36 Dose: 40 mg Polyethylene Glycol (Miralax (For Daily Use) -) 17 gm PO BID [facility] Last Admin: 04/12/18 09:46 Dose: 17 grams Sacubitril/Valsartan (Entresto 24 Mg-26 Mg Tablet) 1 tab PO BID [facility] Last Admin: 04/12/18 09:37 Dose: 1 tab Senna (Senna -) 2 tab PO HS PRN PRN Reason: CONSTIPATION Last Admin: 04/07/18 00:08 Dose: 2 tab Sertraline HCl (Zoloft -) 25 mg PO DAILY [facility] Last Admin: 04/12/18 09:36 Dose: 25 mg Tamsulosin HCl (Flomax -) 0.4 mg PO DAILY@0830 [facility] Last Admin: 04/12/18 09:26 Dose: 0.4 mg Warfarin Sodium (Coumadin -) 3 mg PO DAILY@1800 [facility] Last Admin: 04/11/18 18:13 Dose: 3 mg - Objective Vital Signs: Vital Signs Temperature 97.8 F 04/12/18 10:00 Pulse Rate 80 04/12/18 10:00 Respiratory Rate 18 04/12/18 10:00 Blood Pressure 98/59 L 04/12/18 10:00 O2 Sat by Pulse Oximetry (%) 98 04/11/18 21:00 Neck: Yes: Supple Cardiovascular: Yes: Regular Rate and Rhythm, S1, S2 Respiratory: Yes: Diminished Gastrointestinal: Yes: Normal Bowel Sounds, Soft. No: Tenderness Edema: No Labs: CBC, BMP 04/12/18 06:30 04/12/18 06:30 INR, PTT INR 1.79 (0.83-1.09) H 04/12/18 06:30 Problem List - Problems (1) Incarcerated hernia Code(s): K46.0 - UNSP ABDOMINAL HERNIA WITH OBSTRUCTION, WITHOUT GANGRENE (2) Acute on chronic congestive heart failure Code(s): I50.9 - HEART FAILURE, UNSPECIFIED (3) Acute on chronic renal failure Code(s): N17.9 - ACUTE KIDNEY FAILURE, UNSPECIFIED; N18.9 - CHRONIC KIDNEY DISEASE, UNSPECIFIED Qualifiers: Chronic kidney disease stage: stage 3 (moderate) (4) Afib Code(s): I48.91 - UNSPECIFIED ATRIAL FIBRILLATION Qualifiers: Atrial fibrillation type: persistent Qualified Code(s): I48.1 - Persistent atrial fibrillation (5) Anemia Code(s): D64.9 - ANEMIA, UNSPECIFIED Qualifiers: Anemia type: unspecified type Qualified Code(s): D64.9 - Anemia, unspecified (6) Anticoagulated on Coumadin Code(s): Z79.01 - 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 transplanted heart: [place] heart Associated angina: without angina Qualified Code(s): I25.10 - Atherosclerotic heart disease of [place] coronary artery without angina pectoris (9) HTN (hypertension) Code(s): I10 - ESSENTIAL (PRIMARY) HYPERTENSION Qualifiers: Hypertension type: essential hypertension Qualified Code(s): I10 - Essential (primary) hypertension (10) Hyperlipidemia Code(s): E78.5 - HYPERLIPIDEMIA, UNSPECIFIED Qualifiers: Hyperlipidemia type: pure hypercholesterolemia Qualified Code(s): E78.00 - Pure hypercholesterolemia, unspecified; E78.0 - Pure hypercholesterolemia (11) Pacemaker Code(s): Z95.0 - PRESENCE OF CARDIAC PACEMAKER (12) Pleural effusion Code(s): J90 - PLEURAL EFFUSION, NOT ELSEWHERE CLASSIFIED (13) Pulmonary hypertension Code(s): I27.2 - OTHER SECONDARY PULMONARY HYPERTENSION * DO NOT USE * (14) Sick sinus syndrome Code(s): I49.5 - SICK SINUS SYNDROME (15) Status post coronary artery stent placement Code(s): Z95.5 - PRESENCE OF CORONARY ANGIOPLASTY IMPLANT AND GRAFT (16) Supratherapeutic INR Code(s): R79.1 - ABNORMAL COAGULATION PROFILE (17) Systolic and diastolic CHF, acute on chronic Code(s): I50.43 - ACUTE ON CHRONIC COMBINED SYSTOLIC AND DIASTOLIC HRT FAIL (18) Type 2 diabetes mellitus Code(s): E11.9 - TYPE 2 DIABETES MELLITUS WITHOUT COMPLICATIONS Qualifiers: Diabetes mellitus complication status: with kidney complications Diabetes mellitus complication detail: with chronic kidney disease Chronic kidney disease stage: stage 3 (moderate) Assessment/Plan 1. Incarcerated spigelian hernia without strangulation, for conservative management 2. Right pleural effusion with underlying history of breast carcinoma post mastectomy post chemotherapy, s/p pigtail catheter placement and chest tube 3. 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 CAD post PCI/stent angina pectoris 5. Persistent/chronic atrial fibrillation on anticoagulation, [id number] score of 6 6. AV block post PPM 7. Mitral valve and tricuspid valve regurgitation 8. HTN/HCVD 9. DM 10. Hypercholesterolemia 11. Acute on CKD with proteinuria and hyperkalemia resolving PLAN: 1. Continue Coumadin per INR 2. Continue Carvedilol 25 mg BID as tolerated (BP permitting) 3. Entresto 24/26 mg BID and monitor renal function and electrolytes 4. Chest tube management, bronchodilator and O2 as needed Chente Gasca MD
--- NOTE | 2018-04-12 11:04 | PN ---
Progress Note (short form) - Note Progress Note: Awake and alert. Pleural catheter continues to drain: 210 cc in last 24 hours. Denies CP. SOB is better. Intake & Output 04/09/18 04/10/18 04/11/18 04/12/18 23:59 23:59 23:59 23:59 Intake Total 900 500 940 240 Output Total 2405 1225 410 270 Balance -1505 -725 530 -30 Last Vital Signs Temp Pulse Resp BP Pulse Ox 97.8 F 80 18 98/59 L 98 04/12/18 10:00 04/12/18 10:00 04/12/18 10:00 04/12/18 10:00 04/11/18 21:00 Active Medications Acetaminophen (Tylenol -) 650 mg PO Q6H PRN PRN Reason: MODERATE PAIN Last Admin: 04/06/18 10:50 Dose: 650 mg Carvedilol (Coreg -) 25 mg PO BID [facility] Last Admin: 04/12/18 09:37 Dose: Not Given Dextrose (Glucose Tablet -) 4 gm PO ONCE PRN PRN Reason: BG < 60mg/dl Last Admin: 04/06/18 06:26 Dose: 4 gm Guaifenesin (Robitussin -) 10 ml PO Q6H PRN PRN Reason: COUGH Last Admin: 04/02/18 22:15 Dose: 10 ml Insulin Aspart (Novolog Vial Sliding Scale -) 1 vial SQ BIDI [facility]; Protocol Last Admin: 04/12/18 06:40 Dose: Not Given Mirtazapine (Remeron -) 7.5 mg PO HS [facility] Last Admin: 04/11/18 23:30 Dose: Not Given Nystatin (Nystop Powder -) 1 applic TP QSHIFT [facility] Last Admin: 04/12/18 06:39 Dose: 1 applic Pantoprazole Sodium (Protonix -) 40 mg PO DAILY [facility] Last Admin: 04/12/18 09:36 Dose: 40 mg Polyethylene Glycol (Miralax (For Daily Use) -) 17 gm PO BID [facility] Last Admin: 04/12/18 09:46 Dose: 17 grams Sacubitril/Valsartan (Entresto 24 Mg-26 Mg Tablet) 1 tab PO BID [facility] Last Admin: 04/12/18 09:37 Dose: 1 tab Senna (Senna -) 2 tab PO HS PRN PRN Reason: CONSTIPATION Last Admin: 04/07/18 00:08 Dose: 2 tab Sertraline HCl (Zoloft -) 25 mg PO DAILY [facility] Last Admin: 04/12/18 09:36 Dose: 25 mg Tamsulosin HCl (Flomax -) 0.4 mg PO DAILY@0830 [facility] Last Admin: 04/12/18 09:26 Dose: 0.4 mg Warfarin Sodium (Coumadin -) 3 mg PO DAILY@1800 [facility] Last Admin: 04/11/18 18:13 Dose: 3 mg Constitutional: Yes: Calm, Thin Eyes: Yes: WNL HENT: Yes: WNL Neck: Yes: WNL Cardiovascular: Yes: Pulse Irregular, S1, S2 Respiratory: Yes: Diminished, right pleural catheter intact Gastrointestinal: Yes: Normal Bowel Sounds, Soft Extremities: Yes: WNL Edema: No Labs: Laboratory Results - last 24 hr 04/12/18 04/12/18 04/12/18 06:30 06:30 06:30 WBC 4.5 RBC 3.22 L Hgb 10.5 L Hct 30.7 L MCV 95.5 MCH 32.6 MCHC 34.2 RDW 15.7 Plt Count 213 MPV 8.3 Absolute Neuts (auto) 3.1 Neutrophils % 68.3 Lymphocytes % 17.0 Monocytes % 12.1 H Eosinophils % 2.4 Basophils % 0.2 Nucleated RBC % 0 PT with INR 21.20 H INR 1.79 H Sodium 140 Potassium 4.5 Chloride 107 Carbon Dioxide 28 Anion Gap 5 L BUN 47 H Creatinine 1.9 H Creat Clearance w eGFR 34.19 POC Glucometer Random Glucose 68 L Calcium 9.1 Total Bilirubin 0.7 AST 14 L ALT 24 Alkaline Phosphatase 166 H Total Protein 4.1 L Albumin 1.6 L 04/12/18 06:36 WBC RBC Hgb Hct MCV MCH MCHC RDW Plt Count MPV Absolute Neuts (auto) Neutrophils % Lymphocytes % Monocytes % Eosinophils % Basophils % Nucleated RBC % PT with INR INR Sodium Potassium Chloride Carbon Dioxide Anion Gap BUN Creatinine Creat Clearance w eGFR POC Glucometer 68 Random Glucose Calcium Total Bilirubin AST ALT Alkaline Phosphatase Total Protein Albumin Assessment/Plan Problem List - Problems (1) Incarcerated hernia Code(s): K46.0 - UNSP ABDOMINAL HERNIA WITH OBSTRUCTION, WITHOUT GANGRENE NOT A SURGICAL CANDIDATE (2) Acute on chronic renal failure Code(s): N17.9 - ACUTE KIDNEY FAILURE, UNSPECIFIED; N18.9 - CHRONIC KIDNEY DISEASE, UNSPECIFIED Qualifiers: Chronic kidney disease stage: stage 3 (moderate) (3) Afib Code(s): I48.91 - UNSPECIFIED ATRIAL FIBRILLATION Qualifiers: Atrial fibrillation type: persistent Qualified Code(s): I48.1 - Persistent atrial fibrillation (4) Anemia Code(s): D64.9 - ANEMIA, UNSPECIFIED Qualifiers: Anemia type: unspecified type Qualified Code(s): D64.9 - Anemia, unspecified (5) Anticoagulated on Coumadin Code(s): 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 transplanted heart: [place] heart Associated angina: without angina Qualified Code(s): I25.10 - Atherosclerotic heart disease of [place] coronary artery without angina pectoris (7) HTN (hypertension) Code(s): I10 - ESSENTIAL (PRIMARY) HYPERTENSION Qualifiers: Hypertension type: essential hypertension Qualified Code(s): I10 - Essential (primary) hypertension (8) Hyperlipidemia Code(s): E78.5 - HYPERLIPIDEMIA, UNSPECIFIED Qualifiers: Hyperlipidemia type: pure hypercholesterolemia Qualified Code(s): E78.00 - Pure hypercholesterolemia, unspecified; E78.0 - Pure hypercholesterolemia (9) Pacemaker Code(s): Z95.0 - PRESENCE OF CARDIAC PACEMAKER (10) Pleural effusion, right Code(s): J90 - PLEURAL EFFUSION, NOT ELSEWHERE CLASSIFIED (11) Pulmonary hypertension Code(s): I27.2 - OTHER SECONDARY PULMONARY HYPERTENSION * DO NOT USE * (12) Sick sinus syndrome Code(s): I49.5 - SICK SINUS SYNDROME (13) Status post coronary artery stent placement Code(s): Z95.5 - PRESENCE OF CORONARY ANGIOPLASTY IMPLANT AND GRAFT (14) Supratherapeutic INR Code(s): R79.1 - ABNORMAL COAGULATION PROFILE (15) Systolic and diastolic CHF, acute on chronic Code(s): I50.43 - ACUTE ON CHRONIC COMBINED SYSTOLIC AND DIASTOLIC HRT FAIL (16) Type 2 diabetes mellitus Code(s): E11.9 - TYPE 2 DIABETES MELLITUS WITHOUT COMPLICATIONS Qualifiers: Diabetes mellitus complication status: with kidney complications Diabetes mellitus complication detail: with chronic kidney disease Chronic kidney disease stage: stage 3 (moderate) A/P Incarcerated Hernia Right Pleural Effusion S/P pleural catheter: etiology ML CHF related h/o Breast Ca Acute on Chronic Renal Failure LV Systolic Dysfunction CAD Atrial Fibrillation/AV block s/p PPM Mitral Regurgitation HTN DM Supratherapeutic INR - inhaled bronchodilators - O2 to keep SpO2 >90% - Monitor pleural catheter drainage - Incentive Spirometry - Follow CXR in AM - Can consider PleureX if continued significant output Dr [place]
--- NOTE | 2018-04-12 11:28 | PN ---
Progress Note (short form) - Note Progress Note: no distress chest tube - s/p replacement output 210cc overnight pt has no c/o pain , SOB spoke with Pulmonary Vital Signs - 24 hr 04/11/18 04/11/18 04/11/18 13:49 18:24 21:00 Temperature 97.5 F L 97.3 F L Pulse Rate 67 79 Respiratory 18 18 20 Rate Blood Pressure 117/68 111/46 L O2 Sat by Pulse 98 Oximetry (%) 04/11/18 04/12/18 04/12/18 23:00 06:00 10:00 Temperature 98.2 F 97.8 F Pulse Rate 71 81 80 Respiratory 20 18 18 Rate Blood Pressure 95/54 L 101/58 L 98/59 L O2 Sat by Pulse Oximetry (%) Current Medications Generic Name Dose Route Start Last Admin Trade Name Freq PRN Reason Stop Dose Admin Acetaminophen 650 mg 03/31/18 10:44 04/06/18 10:50 Tylenol - PO 650 mg Q6H PRN Administration MODERATE PAIN Carvedilol 25 mg 03/19/18 22:00 04/12/18 09:37 Coreg - PO Not Given BID [facility] Dextrose 4 gm 03/19/18 23:22 04/06/18 06:26 Glucose Tablet - PO 4 gm ONCE PRN Administration BG < 60mg/dl Guaifenesin 10 ml 03/18/18 18:32 04/02/18 22:15 Robitussin - PO 10 ml Q6H PRN Administration COUGH Insulin Aspart 1 vial 04/03/18 16:30 04/12/18 06:40 Novolog Vial Sliding Scale - SQ Not Given BIDI [facility] Protocol Mirtazapine 7.5 mg 04/06/18 22:00 04/11/18 23:30 Remeron - PO Not Given HS ALEX Nystatin 1 applic 03/28/18 14:00 04/12/18 06:39 Nystop Powder - TP 1 applic QSHIFT [facility] Administration Pantoprazole Sodium 40 mg 03/20/18 10:00 04/12/18 09:36 Protonix - PO 40 mg DAILY [facility] Administration Polyethylene Glycol 17 gm 03/23/18 11:30 04/12/18 09:46 Miralax (For Daily Use) - PO 17 grams BID [facility] Administration Sacubitril/Valsartan 1 tab 04/04/18 22:00 04/12/18 09:37 Entresto 24 Mg-26 Mg Tablet PO 1 tab BID [facility] Administration Senna 2 tab 03/23/18 11:16 04/07/18 00:08 Senna - PO 2 tab HS PRN Administration CONSTIPATION Sertraline HCl 25 mg 04/07/18 10:00 04/12/18 09:36 Zoloft - PO 25 mg DAILY [facility] Administration Tamsulosin HCl 0.4 mg 03/20/18 08:30 04/12/18 09:26 Flomax - PO 0.4 mg DAILY@0830 [facility] Administration Warfarin Sodium 3 mg 04/09/18 18:00 04/11/18 18:13 Coumadin - PO 3 mg DAILY@1800 [facility] Administration Laboratory Results - last 24 hr 04/12/18 04/12/18 04/12/18 06:30 06:30 06:30 WBC 4.5 RBC 3.22 L Hgb 10.5 L Hct 30.7 L MCV 95.5 MCH 32.6 MCHC 34.2 RDW 15.7 Plt Count 213 MPV 8.3 Absolute Neuts (auto) 3.1 Neutrophils % 68.3 Lymphocytes % 17.0 Monocytes % 12.1 H Eosinophils % 2.4 Basophils % 0.2 Nucleated RBC % 0 PT with INR 21.20 H INR 1.79 H Sodium 140 Potassium 4.5 Chloride 107 Carbon Dioxide 28 Anion Gap 5 L BUN 47 H Creatinine 1.9 H Creat Clearance w eGFR 34.19 POC Glucometer Random Glucose 68 L Calcium 9.1 Total Bilirubin 0.7 AST 14 L ALT 24 Alkaline Phosphatase 166 H Total Protein 4.1 L Albumin 1.6 L 04/12/18 06:36 WBC RBC Hgb Hct MCV MCH MCHC RDW Plt Count MPV Absolute Neuts (auto) Neutrophils % Lymphocytes % Monocytes % Eosinophils % Basophils % Nucleated RBC % PT with INR INR Sodium Potassium Chloride Carbon Dioxide Anion Gap BUN Creatinine Creat Clearance w eGFR POC Glucometer 68 Random Glucose Calcium Total Bilirubin AST ALT Alkaline Phosphatase Total Protein Albumin Physical Examination Constitutional: Yes: No Distress, comfortable Cardiovascular: Yes: Regular Rate and Rhythm Respiratory: Yes: Diminished - chest tube Gastrointestinal: Yes: soft/ hernia + bs present, NT Edema: No Neuro- a0x3 a/p stable not SOB no JVD nebs prn increase coumadin. monitor for hypoglycemia continue with meds may consider pleurex if persistent effusion per Pulmonary Check CXR Problem List - Problems (1) Incarcerated hernia Code(s): K46.0 - UNSP ABDOMINAL HERNIA WITH OBSTRUCTION, WITHOUT GANGRENE (2) Abnormal INR Code(s): R79.1 - ABNORMAL COAGULATION PROFILE (3) Afib Code(s): I48.91 - UNSPECIFIED ATRIAL FIBRILLATION Qualifiers: Atrial fibrillation type: persistent Qualified Code(s): I48.1 - Persistent atrial fibrillation (4) Anemia Code(s): D64.9 - ANEMIA, UNSPECIFIED Qualifiers: Anemia type: unspecified type Qualified Code(s): D64.9 - Anemia, unspecified (5) Anticoagulated on Coumadin Code(s): 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
[2018-04-12] MEDS: WARFARIN NA 2 MG TABLET (UD) PO SCH (17:46)
[2018-04-12] MEDS: MIRTAZAPINE 15 MG TABLET (FP) PO SCH (21:39)
[2018-04-13] MEDS: INSULIN SLIDING SCALE (NOVOLOG) 1 VIAL SQ SCH ×2 (06:04→17:38)
[2018-04-13] MEDS: NYSTATIN POWDER 100,000 UNITS/GM - 15 GM TOPICAL POWDER TP SCH ×3 (06:04→21:45)
[2018-04-13 07:40] LABS: BASO % 0.3 % (0-2.0); EOS % 1.7 % (0-4.5); HEMATOCRIT 30.7 % (35.4-49); HEMOGLOBIN 10.3 GM/dL (11.7-16.9); LYMPH % 14.5 % (8-40); MCHC 33.5 g/dl (32.0-35.9); MEAN CELL VOLUME 95.5 fl (80-96); MEAN PLT VOLUME 8.5 fl (7.5-11.1); MONO % 13.4 % (3.8-10.2); NEUT % 70.1 % (42.8-82.8); PLATELET COUNT 197 K/MM3 (134-434); RBC 3.22 M/mm3 (4.00-5.60); RDW 15.8 % (11.9-15.9); WHITE BLOOD COUNT 5.1 K/mm3 (4.0-10.0)
[2018-04-13 08:19] LABS: ALBUMIN 1.5 g/dl (3.4-5.0); ALK PHOS 188 U/L (45-117); ANION GAP 6 MMOL/L (8-16); BILIRUBIN,TOTAL 0.5 mg/dL (0.2-1); BLOOD UREA NITROGEN 46 mg/dL (7-18); CALCIUM 8.9 mg/dL (8.5-10.1); CHLORIDE 106 mmol/L (98-107); CO2 25 mmol/L (21-32); CREATININE 1.7 mg/dL (0.55-1.3); GLUCOSE,RANDOM 101 mg/dL (74-106); POTASSIUM 4.9 mmol/L (3.5-5.1); SGOT/AST 24 U/L (15-37); SGPT/ALT 24 U/L (13-61); SODIUM 137 mmol/L (136-145); TOT PROT 4.4 g/dl (6.4-8.2)
[2018-04-13 08:28] LABS: INR 2.58 (0.83-1.09); PROTHROMBIN TIME (PATIENT) 30.7 SEC (9.7-13.0)
[2018-04-13] MEDS: TAMSULOSIN HCL 0.4 MG CAP PO SCH (10:07)
[2018-04-13] MEDS: CARVEDILOL 25 MG TABLET (FP) PO SCH ×2 (10:08→21:24)
[2018-04-13] MEDS: POLYETHYLENE GLYCOL 3350 119 GM BTL PO SCH ×2 (10:08→21:24)
[2018-04-13] MEDS ORDERED: SODIUM CHLORIDE 250 ML IV ONE (10:15)
[2018-04-13] MEDS: SERTRALINE HCL 25 MG TABLET (FP) PO SCH (10:55)
[2018-04-13] MEDS: SACUBITRIL/VALSARTAN 24 MG-26 MG TABLET PO SCH ×3 (10:55→21:24)
[2018-04-13] MEDS: PANTOPRAZOLE 40 MG TABLET (FP) PO SCH (10:55)
[2018-04-13 11:20] LABS: ANISOCYTOSIS 1+; MACROCYTOSIS 1+; OVALOCYTE 1+; PLATELET ESTIMATE NORMAL
--- NOTE | 2018-04-13 12:41 | PN ---
Progress Note, Physician History of Present Illness: PULMONARY ALERT,NO DISTRESS,CHEST TUBE DRAINAGE 30cc - Current Medication List Current Medications: Active Medications Acetaminophen (Tylenol -) 650 mg PO Q6H PRN PRN Reason: MODERATE PAIN Last Admin: 04/06/18 10:50 Dose: 650 mg Carvedilol (Coreg -) 25 mg PO BID [facility] Last Admin: 04/13/18 10:08 Dose: Not Given Dextrose (Glucose Tablet -) 4 gm PO ONCE PRN PRN Reason: BG < 60mg/dl Last Admin: 04/06/18 06:26 Dose: 4 gm Guaifenesin (Robitussin -) 10 ml PO Q6H PRN PRN Reason: COUGH Last Admin: 04/02/18 22:15 Dose: 10 ml Insulin Aspart (Novolog Vial Sliding Scale -) 1 vial SQ BIDI [facility]; Protocol Last Admin: 04/13/18 06:04 Dose: Not Given Mirtazapine (Remeron -) 7.5 mg PO HS [facility] Last Admin: 04/12/18 21:39 Dose: 7.5 mg Nystatin (Nystop Powder -) 1 applic TP QSHIFT [facility] Last Admin: 04/13/18 06:04 Dose: 1 applic Pantoprazole Sodium (Protonix -) 40 mg PO DAILY [facility] Last Admin: 04/13/18 10:55 Dose: 40 mg Polyethylene Glycol (Miralax (For Daily Use) -) 17 gm PO BID [facility] Last Admin: 04/13/18 10:08 Dose: Not Given Sacubitril/Valsartan (Entresto 24 Mg-26 Mg Tablet) 1 tab PO BID [facility] Senna (Senna -) 2 tab PO HS PRN PRN Reason: CONSTIPATION Last Admin: 04/07/18 00:08 Dose: 2 tab Sertraline HCl (Zoloft -) 25 mg PO DAILY [facility] Last Admin: 04/13/18 10:55 Dose: 25 mg Tamsulosin HCl (Flomax -) 0.4 mg PO DAILY@0830 [facility] Last Admin: 04/13/18 10:07 Dose: Not Given Warfarin Sodium (Coumadin -) 4 mg PO DAILY@1800 [facility] Last Admin: 04/12/18 17:46 Dose: 4 mg - Objective Vital Signs: Vital Signs Temperature 98 F 04/13/18 11:13 Pulse Rate 63 04/13/18 11:13 Respiratory Rate 18 03/06/19 11:13 Blood Pressure 97/57 L 04/13/18 11:13 O2 Sat by Pulse Oximetry (%) 97 04/12/18 21:00 Constitutional: Yes: Well Nourished, Calm Eyes: Yes: WNL HENT: Yes: WNL Neck: Yes: WNL Cardiovascular: Yes: Pulse Irregular, S1, S2 Respiratory: Yes: Diminished Gastrointestinal: Yes: Normal Bowel Sounds, Soft Extremities: Yes: WNL Edema: No Labs: CBC, BMP 04/13/18 07:00 04/13/18 07:00 INR, PTT INR 2.58 (0.83-1.09) H 04/13/18 07:00 Assessment/Plan Problem List - Problems (1) Incarcerated hernia Code(s): K46.0 - UNSP ABDOMINAL HERNIA WITH OBSTRUCTION, WITHOUT GANGRENE NOT A SURGICAL CANDIDATE (2) Acute on chronic renal failure Code(s): N17.9 - ACUTE KIDNEY FAILURE, UNSPECIFIED; N18.9 - CHRONIC KIDNEY DISEASE, UNSPECIFIED Qualifiers: Chronic kidney disease stage: stage 3 (moderate) (3) Afib Code(s): I48.91 - UNSPECIFIED ATRIAL FIBRILLATION Qualifiers: Atrial fibrillation type: persistent Qualified Code(s): I48.1 - Persistent atrial fibrillation (4) Anemia Code(s): D64.9 - ANEMIA, UNSPECIFIED Qualifiers: Anemia type: unspecified type Qualified Code(s): D64.9 - Anemia, unspecified (5) Anticoagulated on Coumadin Code(s): 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 transplanted heart: [place] heart Associated angina: without angina Qualified Code(s): I25.10 - Atherosclerotic heart disease of [place] coronary artery without angina pectoris (7) HTN (hypertension) Code(s): I10 - ESSENTIAL (PRIMARY) HYPERTENSION Qualifiers: Hypertension type: essential hypertension Qualified Code(s): I10 - Essential (primary) hypertension (8) Hyperlipidemia Code(s): E78.5 - HYPERLIPIDEMIA, UNSPECIFIED Qualifiers: Hyperlipidemia type: pure hypercholesterolemia Qualified Code(s): E78.00 - Pure hypercholesterolemia, unspecified; E78.0 - Pure hypercholesterolemia (9) Pacemaker Code(s): Z95.0 - PRESENCE OF CARDIAC PACEMAKER (10) Pleural effusion, right Code(s): J90 - PLEURAL EFFUSION, NOT ELSEWHERE CLASSIFIED (11) Pulmonary hypertension Code(s): I27.2 - OTHER SECONDARY PULMONARY HYPERTENSION * DO NOT USE * (12) Sick sinus syndrome Code(s): I49.5 - SICK SINUS SYNDROME (13) Status post coronary artery stent placement Code(s): Z95.5 - PRESENCE OF CORONARY ANGIOPLASTY IMPLANT AND GRAFT (14) Supratherapeutic INR Code(s): R79.1 - ABNORMAL COAGULATION PROFILE (15) Systolic and diastolic CHF, acute on chronic Code(s): I50.43 - ACUTE ON CHRONIC COMBINED SYSTOLIC AND DIASTOLIC HRT FAIL (16) Type 2 diabetes mellitus Code(s): E11.9 - TYPE 2 DIABETES MELLITUS WITHOUT COMPLICATIONS Qualifiers: Diabetes mellitus complication status: with kidney complications Diabetes mellitus complication detail: with chronic kidney disease Chronic kidney disease stage: stage 3 (moderate) A/P Incarcerated Hernia Right Pleural Effusion S/P chest tube h/o Breast Ca Acute on Chronic Renal Failure LV Systolic Dysfunction CAD Atrial Fibrillation/AV block s/p PPM Mitral Regurgitation HTN DM - inhaled bronchodilators - O2 to keep SpO2 >90% - monitor chest tube drainage - chest xray - consider pleur-x if significant amt of fluid noted on chest x-ray DR AKINS
--- NOTE | 2018-04-13 16:27 | PN ---
Progress Note, Physician History of Present Illness: Resting, dyspnea and cough resolved. Right chest tube draining again. - Current Medication List Current Medications: Active Medications Acetaminophen (Tylenol -) 650 mg PO Q6H PRN PRN Reason: MODERATE PAIN Last Admin: 04/06/18 10:50 Dose: 650 mg Carvedilol (Coreg -) 25 mg PO BID [facility] Last Admin: 04/13/18 10:08 Dose: Not Given Dextrose (Glucose Tablet -) 4 gm PO ONCE PRN PRN Reason: BG < 60mg/dl Last Admin: 04/06/18 06:26 Dose: 4 gm Guaifenesin (Robitussin -) 10 ml PO Q6H PRN PRN Reason: COUGH Last Admin: 04/02/18 22:15 Dose: 10 ml Insulin Aspart (Novolog Vial Sliding Scale -) 1 vial SQ BIDI [facility]; Protocol Last Admin: 04/13/18 06:04 Dose: Not Given Mirtazapine (Remeron -) 7.5 mg PO HS [facility] Last Admin: 04/12/18 21:39 Dose: 7.5 mg Nystatin (Nystop Powder -) 1 applic TP QSHIFT [facility] Last Admin: 04/13/18 14:19 Dose: 1 applic Pantoprazole Sodium (Protonix -) 40 mg PO DAILY [facility] Last Admin: 04/13/18 10:55 Dose: 40 mg Polyethylene Glycol (Miralax (For Daily Use) -) 17 gm PO BID [facility] Last Admin: 04/13/18 10:08 Dose: Not Given Sacubitril/Valsartan (Entresto 24 Mg-26 Mg Tablet) 1 tab PO BID [facility] Last Admin: 04/13/18 14:18 Dose: Not Given Senna (Senna -) 2 tab PO HS PRN PRN Reason: CONSTIPATION Last Admin: 04/07/18 00:08 Dose: 2 tab Sertraline HCl (Zoloft -) 25 mg PO DAILY [facility] Last Admin: 04/13/18 10:55 Dose: 25 mg Tamsulosin HCl (Flomax -) 0.4 mg PO DAILY@0830 [facility] Last Admin: 04/13/18 10:07 Dose: Not Given Warfarin Sodium (Coumadin -) 4 mg PO DAILY@1800 [facility] Last Admin: 04/12/18 17:46 Dose: 4 mg - Objective Vital Signs: Vital Signs Temperature 97.3 F L 04/13/18 14:12 Pulse Rate 72 04/13/18 14:12 Respiratory Rate 18 04/13/18 14:12 Blood Pressure 89/52 L 04/13/18 14:12 O2 Sat by Pulse Oximetry (%) 97 04/12/18 21:00 Constitutional: Yes: No Distress, Calm, Thin Neck: Yes: Supple Cardiovascular: Yes: Regular Rate and Rhythm, Murmur (2/6 SM) Respiratory: Yes: Regular, Diminished, On Nasal O2, Other (Right chest tube in place) Gastrointestinal: Yes: Normal Bowel Sounds, Soft Edema: No Labs: CBC, BMP 04/13/18 07:00 04/13/18 07:00 INR, PTT INR 2.58 (0.83-1.09) H 04/13/18 07:00 Problem List - Problems (1) Incarcerated hernia Code(s): K46.0 - UNSP ABDOMINAL HERNIA WITH OBSTRUCTION, WITHOUT GANGRENE (2) Acute on chronic renal failure Code(s): N17.9 - ACUTE KIDNEY FAILURE, UNSPECIFIED; N18.9 - CHRONIC KIDNEY DISEASE, UNSPECIFIED Qualifiers: Chronic kidney disease stage: stage 3 (moderate) (3) Afib Code(s): I48.91 - UNSPECIFIED ATRIAL FIBRILLATION Qualifiers: Atrial fibrillation type: persistent Qualified Code(s): I48.1 - Persistent atrial fibrillation (4) Anemia Code(s): D64.9 - ANEMIA, UNSPECIFIED Qualifiers: Anemia type: unspecified type Qualified Code(s): D64.9 - Anemia, unspecified (5) Anticoagulated on Coumadin 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 transplanted heart: [place] heart Associated angina: without angina Qualified Code(s): I25.10 - Atherosclerotic heart disease of [place] coronary artery without angina pectoris (7) HTN (hypertension) Code(s): I10 - ESSENTIAL (PRIMARY) HYPERTENSION Qualifiers: Hypertension type: essential hypertension Qualified Code(s): I10 - Essential (primary) hypertension (8) Hyperlipidemia Code(s): E78.5 - HYPERLIPIDEMIA, UNSPECIFIED Qualifiers: Hyperlipidemia type: pure hypercholesterolemia Qualified Code(s): E78.00 - Pure hypercholesterolemia, unspecified; E78.0 - Pure hypercholesterolemia (9) Pacemaker Code(s): Z95.0 - PRESENCE OF CARDIAC PACEMAKER (10) Pleural effusion, right Code(s): J90 - PLEURAL EFFUSION, NOT ELSEWHERE CLASSIFIED (11) Pulmonary hypertension Code(s): I27.2 - OTHER SECONDARY PULMONARY HYPERTENSION * DO NOT USE * (12) Sick sinus syndrome Code(s): I49.5 - SICK SINUS SYNDROME (13) Status post coronary artery stent placement Code(s): Z95.5 - PRESENCE OF CORONARY ANGIOPLASTY IMPLANT AND GRAFT (14) Systolic and diastolic CHF, acute on chronic Code(s): I50.43 - ACUTE ON CHRONIC COMBINED SYSTOLIC AND DIASTOLIC HRT FAIL (15) Type 2 diabetes mellitus Code(s): E11.9 - TYPE 2 DIABETES MELLITUS WITHOUT COMPLICATIONS Qualifiers: Diabetes mellitus complication status: with kidney complications Diabetes mellitus complication detail: with chronic kidney disease Chronic kidney disease stage: stage 3 (moderate) Assessment/Plan 02/09/2018 Echo: Normal LV size with severely decreased LV fxn, severe TR, severe pulm HTN, pacer in RV 1. Incarcerated spigelian hernia without strangulation, for conservative management 2. Right pleural effusion with underlying history of breast carcinoma post mastectomy post chemotherapy, s/p pigtail catheter placement and chest tube 3. 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 CAD post PCI/stent angina pectoris 5. Persistent/chronic atrial fibrillation on anticoagulation, [id number] score of 6 with therapeutic INR 6. AV block post PPM 7. Mitral valve and tricuspid valve regurgitation 8. HTN/HCVD 9. DM 10. Hypercholesterolemia 11. Acute on CKD with proteinuria and hyperkalemia resolving PLAN: 1. Continue Coumadin per INR 2. Continue Carvedilol 25 mg BID and Entresto 24/26 mg BID as hemodynamics tolerate 3. Chest tube management, bronchodilator and O2 as needed
[2018-04-13] MEDS: WARFARIN NA 2 MG TABLET (UD) PO SCH (17:31)
[2018-04-13] MEDS: MIRTAZAPINE 15 MG TABLET (FP) PO SCH (21:46)
[2018-04-14] MEDS: NYSTATIN POWDER 100,000 UNITS/GM - 15 GM TOPICAL POWDER TP SCH ×3 (05:56→22:01)
[2018-04-14] MEDS: INSULIN SLIDING SCALE (NOVOLOG) 1 VIAL SQ SCH ×2 (06:04→17:00)
[2018-04-14 07:21] LABS: INR 3.15 (0.83-1.09); PROTHROMBIN TIME (PATIENT) 37.6 SEC (9.7-13.0)
[2018-04-14] MEDS ORDERED: PT OWN MED DRAWER 7, Y5N ONE ×3 (08:48→20:34)
[2018-04-14] MEDS: SACUBITRIL/VALSARTAN 24 MG-26 MG TABLET PO SCH ×2 (09:42→22:03)
[2018-04-14] MEDS: SERTRALINE HCL 25 MG TABLET (FP) PO SCH (09:42)
[2018-04-14] MEDS: TAMSULOSIN HCL 0.4 MG CAP PO SCH (09:42)
[2018-04-14] MEDS: CARVEDILOL 25 MG TABLET (FP) PO SCH ×2 (09:42→22:01)
[2018-04-14] MEDS: POLYETHYLENE GLYCOL 3350 119 GM BTL PO SCH ×2 (09:42→22:01)
[2018-04-14] MEDS: PANTOPRAZOLE 40 MG TABLET (FP) PO SCH (09:44)
--- NOTE | 2018-04-14 09:48 | PN ---
Progress Note, Physician Chief Complaint: Events noted No chest pain or SOB History of Present Illness: Patient was seen and examined. Chart was reviewed Not in distress - Current Medication List Current Medications: Active Medications Acetaminophen (Tylenol -) 650 mg PO Q6H PRN PRN Reason: MODERATE PAIN Last Admin: 04/06/18 10:50 Dose: 650 mg Carvedilol (Coreg -) 25 mg PO BID [facility] Last Admin: 04/14/18 09:42 Dose: 25 mg Dextrose (Glucose Tablet -) 4 gm PO ONCE PRN PRN Reason: BG < 60mg/dl Last Admin: 04/06/18 06:26 Dose: 4 gm Guaifenesin (Robitussin -) 10 ml PO Q6H PRN PRN Reason: COUGH Last Admin: 04/02/18 22:15 Dose: 10 ml Insulin Aspart (Novolog Vial Sliding Scale -) 1 vial SQ BIDI [facility]; Protocol Last Admin: 04/14/18 06:04 Dose: Not Given Mirtazapine (Remeron -) 7.5 mg PO HS [facility] Last Admin: 04/13/18 21:46 Dose: 7.5 mg Nystatin (Nystop Powder -) 1 applic TP QSHIFT [facility] Last Admin: 04/14/18 05:56 Dose: 1 applic Pantoprazole Sodium (Protonix -) 40 mg PO DAILY [facility] Last Admin: 04/14/18 09:44 Dose: 40 mg Polyethylene Glycol (Miralax (For Daily Use) -) 17 gm PO BID [facility] Last Admin: 04/14/18 09:42 Dose: Not Given Sacubitril/Valsartan (Entresto 24 Mg-26 Mg Tablet) 1 tab PO BID [facility] Last Admin: 04/14/18 09:42 Dose: 1 tab Senna (Senna -) 2 tab PO HS PRN PRN Reason: CONSTIPATION Last Admin: 04/07/18 00:08 Dose: 2 tab Sertraline HCl (Zoloft -) 25 mg PO DAILY [facility] Last Admin: 04/14/18 09:42 Dose: 25 mg Tamsulosin HCl (Flomax -) 0.4 mg PO DAILY@0830 [facility] Last Admin: 04/14/18 09:42 Dose: 0.4 mg Warfarin Sodium (Coumadin -) 4 mg PO DAILY@1800 [facility] Last Admin: 04/13/18 17:31 Dose: 4 mg - Objective Vital Signs: Vital Signs Temperature 97.0 F L 04/14/18 09:40 Pulse Rate 76 04/14/18 09:40 Respiratory Rate 16 04/14/18 09:40 Blood Pressure 113/65 04/14/18 09:40 O2 Sat by Pulse Oximetry (%) 97 04/13/18 21:00 HENT: Yes: Atraumatic Neck: Yes: Supple Cardiovascular: Yes: Regular Rate and Rhythm, Murmur (SM), S1, S2 Respiratory: Yes: Diminished, Other (Chest tube) Gastrointestinal: Yes: Normal Bowel Sounds, Soft. No: Tenderness Edema: No Labs: CBC, BMP 04/13/18 07:00 04/13/18 07:00 INR, PTT INR 3.15 (0.83-1.09) H 04/14/18 07:00 Problem List - Problems (1) Incarcerated hernia Code(s): K46.0 - UNSP ABDOMINAL HERNIA WITH OBSTRUCTION, WITHOUT GANGRENE (2) Acute on chronic congestive heart failure Code(s): I50.9 - HEART FAILURE, UNSPECIFIED (3) Acute on chronic renal failure Code(s): N17.9 - ACUTE KIDNEY FAILURE, UNSPECIFIED; N18.9 - CHRONIC KIDNEY DISEASE, UNSPECIFIED Qualifiers: Chronic kidney disease stage: stage 3 (moderate) (4) Afib Code(s): I48.91 - UNSPECIFIED ATRIAL FIBRILLATION Qualifiers: Atrial fibrillation type: persistent Qualified Code(s): I48.1 - Persistent atrial fibrillation (5) Anemia Code(s): D64.9 - ANEMIA, UNSPECIFIED Qualifiers: Anemia type: unspecified type Qualified Code(s): D64.9 - Anemia, unspecified (6) Anticoagulated on Coumadin Code(s): Z79.01 - [facility] (CURRENT) USE OF ANTICOAGULANTS (7) Chronic kidney disease (CKD) Code(s): N18.9 - CHRONIC KIDNEY DISEASE, UNSPECIFIED Qualifiers: Chronic kidney disease stage: unspecified stage Qualified Code(s): N18.9 - Chronic kidney disease, unspecified (8) Coronary artery disease Code(s): I25.10 - ATHSCL HEART DISEASE OF [place] CORONARY ARTERY W/O ANG PCTRS Qualifiers: Coronary Disease-Associated Artery/Lesion type: [place] artery [place] vs. transplanted heart: hoh heart Associated angina: without angina Qualified Code(s): I25.10 - Atherosclerotic heart disease of [place] coronary artery without angina pectoris (9) HTN (hypertension) Code(s): I10 - ESSENTIAL (PRIMARY) HYPERTENSION Qualifiers: Hypertension type: essential hypertension Qualified Code(s): I10 - Essential (primary) hypertension (10) Hyperlipidemia Code(s): E78.5 - HYPERLIPIDEMIA, UNSPECIFIED Qualifiers: Hyperlipidemia type: pure hypercholesterolemia Qualified Code(s): E78.00 - Pure hypercholesterolemia, unspecified; E78.0 - Pure hypercholesterolemia (11) Pacemaker Code(s): Z95.0 - PRESENCE OF CARDIAC PACEMAKER (12) Pleural effusion Code(s): J90 - PLEURAL EFFUSION, NOT ELSEWHERE CLASSIFIED (13) Pulmonary hypertension Code(s): I27.2 - OTHER SECONDARY PULMONARY HYPERTENSION * DO NOT USE * (14) Sick sinus syndrome Code(s): I49.5 - SICK SINUS SYNDROME (15) Status post coronary artery stent placement Code(s): Z95.5 - PRESENCE OF CORONARY ANGIOPLASTY IMPLANT AND GRAFT (16) Supratherapeutic INR Code(s): R79.1 - ABNORMAL COAGULATION PROFILE (17) Systolic and diastolic CHF, acute on chronic Code(s): I50.43 - ACUTE ON CHRONIC COMBINED SYSTOLIC AND DIASTOLIC HRT FAIL (18) Type 2 diabetes mellitus Code(s): E11.9 - TYPE 2 DIABETES MELLITUS WITHOUT COMPLICATIONS Qualifiers: Diabetes mellitus complication status: with kidney complications Diabetes mellitus complication detail: with chronic kidney disease Chronic kidney disease stage: stage 3 (moderate) Assessment/Plan 1. Incarcerated spigelian hernia without strangulation, for conservative management 2. Right pleural effusion with underlying history of breast carcinoma post mastectomy post chemotherapy, s/p pigtail catheter placement and chest tube 3. 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 CAD post PCI/stent angina pectoris 5. Persistent/chronic atrial fibrillation on anticoagulation, [id number] score of 6 6. AV block post PPM 7. Mitral valve and tricuspid valve regurgitation 8. HTN/HCVD 9. DM 10. Hypercholesterolemia 11. Acute on CKD with proteinuria and hyperkalemia resolving PLAN: 1. Continue Coumadin per INR 2. Continue Carvedilol 25 mg BID as tolerated (BP permitting) 3. Entresto 24/26 mg BID and monitor renal function and electrolytes 4. Chest tube management, bronchodilator and O2 as needed Chente Gasca MD
--- NOTE | 2018-04-14 10:59 | PN ---
Progress Note (short form) - Note Progress Note: Lethargic but arousable. Pleural catheter drainage significantly decreased: 20 cc reported overnight. 30cc prior shift. CXR: persistent large right effusion. Intake & Output 04/11/18 04/12/18 04/13/18 04/14/18 23:59 23:59 23:59 23:59 Intake Total 940 1180 310 320 Output Total 410 340 30 120 Balance 530 840 280 200 Last Vital Signs Temp Pulse Resp BP Pulse Ox 97.0 F L 76 16 113/65 97 04/14/18 09:40 04/14/18 09:40 04/14/18 09:40 04/14/18 09:40 04/13/18 21:00 Active Medications Acetaminophen (Tylenol -) 650 mg PO Q6H PRN PRN Reason: MODERATE PAIN Last Admin: 04/06/18 10:50 Dose: 650 mg Carvedilol (Coreg -) 25 mg PO BID [facility] Last Admin: 04/14/18 09:42 Dose: 25 mg Dextrose (Glucose Tablet -) 4 gm PO ONCE PRN PRN Reason: BG < 60mg/dl Last Admin: 04/06/18 06:26 Dose: 4 gm Guaifenesin (Robitussin -) 10 ml PO Q6H PRN PRN Reason: COUGH Last Admin: 04/02/18 22:15 Dose: 10 ml Insulin Aspart (Novolog Vial Sliding Scale -) 1 vial SQ BIDI [facility]; Protocol Last Admin: 04/14/18 06:04 Dose: Not Given Mirtazapine (Remeron -) 7.5 mg PO HS [facility] Last Admin: 04/13/18 21:46 Dose: 7.5 mg Nystatin (Nystop Powder -) 1 applic TP QSHIFT [facility] Last Admin: 04/14/18 05:56 Dose: 1 applic Pantoprazole Sodium (Protonix -) 40 mg PO DAILY [facility] Last Admin: 04/14/18 09:44 Dose: 40 mg Polyethylene Glycol (Miralax (For Daily Use) -) 17 gm PO BID [facility] Last Admin: 04/14/18 09:42 Dose: Not Given Sacubitril/Valsartan (Entresto 24 Mg-26 Mg Tablet) 1 tab PO BID [facility] Last Admin: 04/14/18 09:42 Dose: 1 tab Senna (Senna -) 2 tab PO HS PRN PRN Reason: CONSTIPATION Last Admin: 04/07/18 00:08 Dose: 2 tab Sertraline HCl (Zoloft -) 25 mg PO DAILY [facility] Last Admin: 04/14/18 09:42 Dose: 25 mg Tamsulosin HCl (Flomax -) 0.4 mg PO DAILY@0830 [facility] Last Admin: 04/14/18 09:42 Dose: 0.4 mg Warfarin Sodium (Coumadin -) 4 mg PO DAILY@1800 [facility] Last Admin: 04/13/18 17:31 Dose: 4 mg Constitutional: Yes: Calm, Thin Eyes: Yes: WNL HENT: Yes: WNL Neck: Yes: WNL Cardiovascular: Yes: Pulse Irregular, S1, S2 Respiratory: Yes: Diminished, right pleural catheter intact Gastrointestinal: Yes: Normal Bowel Sounds, Soft Extremities: Yes: WNL Edema: No Neuro: Lethargy Labs: Laboratory Results - last 24 hr 04/13/18 04/13/18 04/14/18 07:00 17:37 05:55 Neutrophils % (Manual) 71.0 Band Neutrophils % 2.0 Lymphocytes % (Manual) 13.0 D Monocytes % (Manual) 12 H Eosinophils % (Manual) 0.0 Basophils % (Manual) 0.0 Myelocytes % (Man) 0 Promyelocytes % (Man) 0 Blast Cells % (Manual) 0 Metamyelocytes 0 D Hypochromia 0 Platelet Estimate Normal Polychromasia 0 Poikilocytosis 0 Anisocytosis 1+ Microcytosis 0 Macrocytosis 1+ Ovalocytes 1+ PT with INR INR POC Glucometer 118 121 04/14/18 07:00 Neutrophils % (Manual) Band Neutrophils % Lymphocytes % (Manual) Monocytes % (Manual) Eosinophils % (Manual) Basophils % (Manual) Myelocytes % (Man) Promyelocytes % (Man) Blast Cells % (Manual) Metamyelocytes Hypochromia Platelet Estimate Polychromasia Poikilocytosis Anisocytosis Microcytosis Macrocytosis Ovalocytes PT with INR 37.60 H INR 3.15 H POC Glucometer Assessment/Plan Problem List - Problems (1) Incarcerated hernia Code(s): K46.0 - UNSP ABDOMINAL HERNIA WITH OBSTRUCTION, WITHOUT GANGRENE NOT A SURGICAL CANDIDATE (2) Acute on chronic renal failure Code(s): N17.9 - ACUTE KIDNEY FAILURE, UNSPECIFIED; N18.9 - CHRONIC KIDNEY DISEASE, UNSPECIFIED Qualifiers: Chronic kidney disease stage: stage 3 (moderate) (3) Afib Code(s): I48.91 - UNSPECIFIED ATRIAL FIBRILLATION Qualifiers: Atrial fibrillation type: persistent Qualified Code(s): I48.1 - Persistent atrial fibrillation (4) Anemia Code(s): D64.9 - ANEMIA, UNSPECIFIED Qualifiers: Anemia type: unspecified type Qualified Code(s): D64.9 - Anemia, unspecified (5) Anticoagulated on Coumadin Code(s): Z79.01 - [facility] (CURRENT) USE OF ANTICOAGULANTS (6) Coronary artery disease Code(s): I25.10 - ATHSCL HEART DISEASE OF [place] CORONARY ARTERY W/O ANG PCTRS Qualifiers: Coronary Disease-Associated Artery/Lesion type: [place] artery [place] vs. transplanted heart: [place] heart Associated angina: without angina Qualified Code(s): I25.10 - Atherosclerotic heart disease of [place] coronary artery without angina pectoris (7) HTN (hypertension) Code(s): I10 - ESSENTIAL (PRIMARY) HYPERTENSION Qualifiers: Hypertension type: essential hypertension Qualified Code(s): I10 - Essential (primary) hypertension (8) Hyperlipidemia Code(s): E78.5 - HYPERLIPIDEMIA, UNSPECIFIED Qualifiers: Hyperlipidemia type: pure hypercholesterolemia Qualified Code(s): E78.00 - Pure hypercholesterolemia, unspecified; E78.0 - Pure hypercholesterolemia (9) Pacemaker Code(s): Z95.0 - PRESENCE OF CARDIAC PACEMAKER (10) Pleural effusion, right Code(s): J90 - PLEURAL EFFUSION, NOT ELSEWHERE CLASSIFIED (11) Pulmonary hypertension Code(s): I27.2 - OTHER SECONDARY PULMONARY HYPERTENSION * DO NOT USE * (12) Sick sinus syndrome Code(s): I49.5 - SICK SINUS SYNDROME (13) Status post coronary artery stent placement Code(s): Z95.5 - PRESENCE OF CORONARY ANGIOPLASTY IMPLANT AND GRAFT (14) Supratherapeutic INR Code(s): R79.1 - ABNORMAL COAGULATION PROFILE (15) Systolic and diastolic CHF, acute on chronic Code(s): I50.43 - ACUTE ON CHRONIC COMBINED SYSTOLIC AND DIASTOLIC HRT FAIL (16) Type 2 diabetes mellitus Code(s): E11.9 - TYPE 2 DIABETES MELLITUS WITHOUT COMPLICATIONS Qualifiers: Diabetes mellitus complication status: with kidney complications Diabetes mellitus complication detail: with chronic kidney disease Chronic kidney disease stage: stage 3 (moderate) A/P Incarcerated Hernia Right Pleural Effusion S/P pleural catheter: etiology ML CHF related h/o Breast Ca Acute on Chronic Renal Failure LV Systolic Dysfunction CAD Atrial Fibrillation/AV block s/p PPM Mitral Regurgitation HTN DM Supratherapeutic INR - inhaled bronchodilators - O2 to keep SpO2 >90% - Monitor pleural catheter drainage - Incentive Spirometry - Follow CXR today - Can consider PleureX at this point Dr [place]
--- NOTE | 2018-04-14 11:08 | PN ---
Progress Note (short form) - Note Progress Note: no distress chest tube - s/p replacement output decreased by chest x-ray results noted which is saying that it is worse Patient was drowsy this morning Poor appetite pt has no c/o pain , SOB spoke with Pulmonary Vital Signs - 24 hr 04/13/18 04/13/18 04/13/18 18:00 21:00 22:00 Temperature 98.3 F Pulse Rate 70 77 Respiratory 18 20 20 Rate Blood Pressure 103/61 90/54 L O2 Sat by Pulse 97 Oximetry (%) 04/14/18 09:40 Temperature 97.0 F L Pulse Rate 76 Respiratory 16 Rate Blood Pressure 113/65 O2 Sat by Pulse Oximetry (%) Current Medications Generic Name Dose Route Start Last Admin Trade Name Freq PRN Reason Stop Dose Admin Acetaminophen 650 mg 03/31/18 10:44 04/06/18 10:50 Tylenol - PO 650 mg Q6H PRN Administration MODERATE PAIN Carvedilol 25 mg 03/19/18 22:00 04/14/18 09:42 Coreg - PO 25 mg BID [facility] Administration Dextrose 4 gm 03/19/18 23:22 04/06/18 06:26 Glucose Tablet - PO 4 gm ONCE PRN Administration BG < 60mg/dl Guaifenesin 10 ml 03/18/18 18:32 04/02/18 22:15 Robitussin - PO 10 ml Q6H PRN Administration COUGH Insulin Aspart 1 vial 04/03/18 16:30 04/14/18 06:04 Novolog Vial Sliding Scale - SQ Not Given BIDI [facility] Protocol Mirtazapine 7.5 mg 04/06/18 22:00 04/13/18 21:46 Remeron - PO 7.5 mg HS [facility] Administration Nystatin 1 applic 03/28/18 14:00 04/14/18 05:56 Nystop Powder - TP 1 applic QSHIFT [facility] Administration Pantoprazole Sodium 40 mg 03/20/18 10:00 04/14/18 09:44 Protonix - PO 40 mg DAILY [facility] Administration Polyethylene Glycol 17 gm 03/23/18 11:30 04/14/18 09:42 Miralax (For Daily Use) - PO Not Given BID [facility] Sacubitril/Valsartan 1 tab 04/13/18 12:45 04/14/18 09:42 Entresto 24 Mg-26 Mg Tablet PO 1 tab BID [facility] Administration Senna 2 tab 03/23/18 11:16 04/07/18 00:08 Senna - PO 2 tab HS PRN Administration CONSTIPATION Sertraline HCl 25 mg 04/07/18 10:00 04/14/18 09:42 Zoloft - PO 25 mg DAILY [facility] Administration Tamsulosin HCl 0.4 mg 03/20/18 08:30 04/14/18 09:42 Flomax - PO 0.4 mg DAILY@0830 [facility] Administration Laboratory Results - last 24 hr 04/13/18 04/14/18 04/14/18 17:37 05:55 07:00 PT with INR 37.60 H INR 3.15 H POC Glucometer 118 121 Ammonia 04/14/18 04/14/18 12:20 12:20 PT with INR 35.90 H INR 3.01 H POC Glucometer Ammonia 19.17 Physical Examination Constitutional: Yes: No Distress, comfortable Cardiovascular: Yes: Regular Rate and Rhythm Respiratory: Yes: Diminished - chest tube Gastrointestinal: Yes: soft/ hernia + bs present, NT Edema: No Neuro- a0x3 a/p stable ammonia levels checked not SOB no JVD nebs prn hold Coumadin in anticipation for Pleurx catheter placement monitor for hypoglycemia continue with meds Problem List - Problems (1) Incarcerated hernia Code(s): K46.0 - UNSP ABDOMINAL HERNIA WITH OBSTRUCTION, WITHOUT GANGRENE (2) Abnormal INR Code(s): R79.1 - ABNORMAL COAGULATION PROFILE (3) Afib Code(s): I48.91 - UNSPECIFIED ATRIAL FIBRILLATION Qualifiers: Atrial fibrillation type: persistent Qualified Code(s): I48.1 - Persistent atrial fibrillation (4) Anemia Code(s): D64.9 - ANEMIA, UNSPECIFIED Qualifiers: Anemia type: unspecified type Qualified Code(s): D64.9 - Anemia, unspecified (5) Anticoagulated on Coumadin 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
[2018-04-14 13:16] LABS: INR 3.01 (0.83-1.09); PROTHROMBIN TIME (PATIENT) 35.9 SEC (9.7-13.0)
[2018-04-14] MEDS: MIRTAZAPINE 15 MG TABLET (FP) PO SCH (22:02)
[2018-04-15] MEDS: DEXTROSE 4 GM TAB.CHEW PO PRN (01:20)
[2018-04-15] MEDS: NYSTATIN POWDER 100,000 UNITS/GM - 15 GM TOPICAL POWDER TP SCH ×2 (06:25→23:11)
[2018-04-15] MEDS: INSULIN SLIDING SCALE (NOVOLOG) 1 VIAL SQ SCH (06:25)
[2018-04-15 07:08] LABS: INR 2.8 (0.83-1.09); PROTHROMBIN TIME (PATIENT) 33.4 SEC (9.7-13.0)
[2018-04-15] MEDS ORDERED: PT OWN MED DRAWER 7, Y5N ONE (08:53)
[2018-04-15] MEDS: TAMSULOSIN HCL 0.4 MG CAP PO SCH (09:25)
[2018-04-15] MEDS: PANTOPRAZOLE 40 MG TABLET (FP) PO SCH (09:25)
[2018-04-15] MEDS: POLYETHYLENE GLYCOL 3350 119 GM BTL PO SCH ×2 (09:25→23:12)
[2018-04-15] MEDS: SERTRALINE HCL 25 MG TABLET (FP) PO SCH (09:25)
[2018-04-15] MEDS: CARVEDILOL 25 MG TABLET (FP) PO SCH ×2 (09:25→23:12)
[2018-04-15] MEDS: SACUBITRIL/VALSARTAN 24 MG-26 MG TABLET PO SCH ×2 (09:25→23:12)
--- NOTE | 2018-04-15 10:07 | PN ---
Progress Note, Physician History of Present Illness: Resting, dyspnea and cough resolved. Right chest tube draining again. - Current Medication List Current Medications: Active Medications Acetaminophen (Tylenol -) 650 mg PO Q6H PRN PRN Reason: MODERATE PAIN Last Admin: 04/06/18 10:50 Dose: 650 mg Carvedilol (Coreg -) 25 mg PO BID [facility] Last Admin: 04/15/18 09:25 Dose: 25 mg Dextrose (Glucose Tablet -) 4 gm PO ONCE PRN PRN Reason: BG < 60mg/dl Last Admin: 04/15/18 01:20 Dose: 4 gm Guaifenesin (Robitussin -) 10 ml PO Q6H PRN PRN Reason: COUGH Last Admin: 04/02/18 22:15 Dose: 10 ml Insulin Aspart (Novolog Vial Sliding Scale -) 1 vial SQ BIDI [facility]; Protocol Last Admin: 04/15/18 06:25 Dose: Not Given Mirtazapine (Remeron -) 7.5 mg PO HS [facility] Last Admin: 04/14/18 22:02 Dose: 7.5 mg Nystatin (Nystop Powder -) 1 applic TP QSHIFT [facility] Last Admin: 04/15/18 06:25 Dose: 1 applic Pantoprazole Sodium (Protonix -) 40 mg PO DAILY [facility] Last Admin: 04/15/18 09:25 Dose: 40 mg Polyethylene Glycol (Miralax (For Daily Use) -) 17 gm PO BID [facility] Last Admin: 04/15/18 09:25 Dose: Not Given Sacubitril/Valsartan (Entresto 24 Mg-26 Mg Tablet) 1 tab PO BID [facility] Last Admin: 04/15/18 09:25 Dose: 1 tab Senna (Senna -) 2 tab PO HS PRN PRN Reason: CONSTIPATION Last Admin: 04/07/18 00:08 Dose: 2 tab Sertraline HCl (Zoloft -) 25 mg PO DAILY [facility] Last Admin: 04/15/18 09:25 Dose: 25 mg Tamsulosin HCl (Flomax -) 0.4 mg PO DAILY@0830 [facility] Last Admin: 04/15/18 09:25 Dose: 0.4 mg - Objective Vital Signs: Vital Signs Temperature 98.2 F 04/15/18 06:00 Pulse Rate 71 04/15/18 09:24 Respiratory Rate 18 04/15/18 06:00 Blood Pressure 119/63 04/15/18 09:24 O2 Sat by Pulse Oximetry (%) 97 04/14/18 21:00 Constitutional: Yes: No Distress, Calm, Thin Neck: Yes: Supple Cardiovascular: Yes: Regular Rate and Rhythm Respiratory: Yes: Regular, Diminished, Other (Right chest tube) Gastrointestinal: Yes: Normal Bowel Sounds, Soft Edema: No Labs: CBC, BMP 04/13/18 07:00 04/13/18 07:00 INR, PTT INR 2.80 (0.83-1.09) H 04/15/18 06:10 - ....Imaging Chest X-ray: Report Reviewed (Right pleural effusion with right pigtail catheter in place) Problem List - Problems (1) Incarcerated hernia Code(s): K46.0 - UNSP ABDOMINAL HERNIA WITH OBSTRUCTION, WITHOUT GANGRENE (2) Acute on chronic renal failure Code(s): N17.9 - ACUTE KIDNEY FAILURE, UNSPECIFIED; N18.9 - CHRONIC KIDNEY DISEASE, UNSPECIFIED Qualifiers: Chronic kidney disease stage: stage 3 (moderate) (3) Afib Code(s): I48.91 - UNSPECIFIED ATRIAL FIBRILLATION Qualifiers: Atrial fibrillation type: persistent Qualified Code(s): I48.1 - Persistent atrial fibrillation (4) Anemia Code(s): D64.9 - ANEMIA, UNSPECIFIED Qualifiers: Anemia type: unspecified type Qualified Code(s): D64.9 - Anemia, unspecified (5) Anticoagulated on Coumadin 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 transplanted heart: [place] heart Associated angina: without angina Qualified Code(s): I25.10 - Atherosclerotic heart disease of [place] coronary artery without angina pectoris (7) HTN (hypertension) Code(s): I10 - ESSENTIAL (PRIMARY) HYPERTENSION Qualifiers: Hypertension type: essential hypertension Qualified Code(s): I10 - Essential (primary) hypertension (8) Hyperlipidemia Code(s): E78.5 - HYPERLIPIDEMIA, UNSPECIFIED Qualifiers: Hyperlipidemia type: pure hypercholesterolemia Qualified Code(s): E78.00 - Pure hypercholesterolemia, unspecified; E78.0 - Pure hypercholesterolemia (9) Pacemaker Code(s): Z95.0 - PRESENCE OF CARDIAC PACEMAKER (10) Pleural effusion, right Code(s): J90 - PLEURAL EFFUSION, NOT ELSEWHERE CLASSIFIED (11) Pulmonary hypertension Code(s): I27.2 - OTHER SECONDARY PULMONARY HYPERTENSION * DO NOT USE * (12) Sick sinus syndrome Code(s): I49.5 - SICK SINUS SYNDROME (13) Status post coronary artery stent placement Code(s): Z95.5 - PRESENCE OF CORONARY ANGIOPLASTY IMPLANT AND GRAFT (14) Systolic and diastolic CHF, acute on chronic Code(s): I50.43 - ACUTE ON CHRONIC COMBINED SYSTOLIC AND DIASTOLIC HRT FAIL (15) Type 2 diabetes mellitus Code(s): E11.9 - TYPE 2 DIABETES MELLITUS WITHOUT COMPLICATIONS Qualifiers: Diabetes mellitus complication status: with kidney complications Diabetes mellitus complication detail: with chronic kidney disease Chronic kidney disease stage: stage 3 (moderate) Assessment/Plan 02/09/2018 Echo: Normal LV size with severely decreased LV fxn, severe TR, severe pulm HTN, pacer in RV 1. Incarcerated spigelian hernia without strangulation, for conservative management 2. Right pleural effusion with underlying history of breast carcinoma post mastectomy post chemotherapy, s/p pigtail catheter placement and chest tube 3. 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 CAD post PCI/stent angina pectoris 5. Persistent/chronic atrial fibrillation on anticoagulation, [id number] score of 6 with therapeutic INR 6. AV block post PPM 7. Mitral valve and tricuspid valve regurgitation 8. HTN/HCVD 9. DM 10. Hypercholesterolemia 11. Acute on CKD with proteinuria and hyperkalemia resolving PLAN: 1. Continue Coumadin per INR 2. Continue Carvedilol 25 mg BID as tolerated (BP permitting) 3. Entresto 24/26 mg BID and monitor renal function and electrolytes 4. Chest tube management, bronchodilator and O2 as needed, consider PleurX at this point
--- NOTE | 2018-04-15 10:23 | PN ---
Progress Note (short form) - Note Progress Note: pt seen/ examined chart reviewed all f/u noted afebrile Vital Signs Temp 98.2 F 04/15/18 06:00 Pulse 71 04/15/18 09:24 Resp 18 04/15/18 06:00 BP 119/63 04/15/18 09:24 Pulse Ox 97 04/14/18 21:00 Intake & Output 04/14/18 04/14/18 04/15/18 11:59 23:59 11:59 Intake Total 320 380 600 Output Total 120 210 Balance 200 170 600 Intake: Oral 320 380 600 Output: Chest Tube Drainage 20 10 Right Mediastinal 20 10 Urine 100 200 Void 100 200 Other: Voiding Method Incontinent Urinal # Unmeasured Voids Void 1 2 Bowel Movement No Yes Active Medications Acetaminophen (Tylenol -) 650 mg PO Q6H PRN PRN Reason: MODERATE PAIN Last Admin: 04/06/18 10:50 Dose: 650 mg Carvedilol (Coreg -) 25 mg PO BID [facility] Last Admin: 04/15/18 09:25 Dose: 25 mg Dextrose (Glucose Tablet -) 4 gm PO ONCE PRN PRN Reason: BG < 60mg/dl Last Admin: 04/15/18 01:20 Dose: 4 gm Guaifenesin (Robitussin -) 10 ml PO Q6H PRN PRN Reason: COUGH Last Admin: 04/02/18 22:15 Dose: 10 ml Insulin Aspart (Novolog Vial Sliding Scale -) 1 vial SQ BIDI [facility]; Protocol Last Admin: 04/15/18 06:25 Dose: Not Given Mirtazapine (Remeron -) 7.5 mg PO HS [facility] Last Admin: 04/14/18 22:02 Dose: 7.5 mg Nystatin (Nystop Powder -) 1 applic TP QSHIFT [facility] Last Admin: 04/15/18 06:25 Dose: 1 applic Pantoprazole Sodium (Protonix -) 40 mg PO DAILY [facility] Last Admin: 04/15/18 09:25 Dose: 40 mg Polyethylene Glycol (Miralax (For Daily Use) -) 17 gm PO BID [facility] Last Admin: 04/15/18 09:25 Dose: Not Given Sacubitril/Valsartan (Entresto 24 Mg-26 Mg Tablet) 1 tab PO BID [facility] Last Admin: 04/15/18 09:25 Dose: 1 tab Senna (Senna -) 2 tab PO HS PRN PRN Reason: CONSTIPATION Last Admin: 04/07/18 00:08 Dose: 2 tab Sertraline HCl (Zoloft -) 25 mg PO DAILY [facility] Last Admin: 04/15/18 09:25 Dose: 25 mg Tamsulosin HCl (Flomax -) 0.4 mg PO DAILY@0830 [facility] Last Admin: 04/15/18 09:25 Dose: 0.4 mg CBC, BMP 04/13/18 07:00 04/13/18 07:00 chest x-ray--- reviewed Physical Examination Constitutional: Yes: No Distress, comfortable Cardiovascular: Yes: Regular Rate and Rhythm Respiratory: Yes: Diminished - chest tube Gastrointestinal: Yes: soft/ hernia + bs present, NT Edema: No Neuro- alert and awake a/p stable hold Coumadin in anticipation for Pleurx catheter placement--- further care in this regard --- by pulmonary Pulmonary to follow Will discuss Monitored BGM Continue other medications Will follow Problem List - Problems (1) Incarcerated hernia Code(s): K46.0 - UNSP ABDOMINAL HERNIA WITH OBSTRUCTION, WITHOUT GANGRENE (2) Abnormal INR Code(s): R79.1 - ABNORMAL COAGULATION PROFILE (3) Afib Code(s): I48.91 - UNSPECIFIED ATRIAL FIBRILLATION Qualifiers: Atrial fibrillation type: persistent Qualified Code(s): I48.1 - Persistent atrial fibrillation (4) Anticoagulated on Coumadin Code(s): Z79.01 - RESIDENTIAL (CURRENT) USE OF ANTICOAGULANTS (5) Ascites Code(s): R18.8 - OTHER ASCITES Qualifiers: Ascites type: other type Qualified Code(s): R18.8 - Other ascites (6) Breast cancer in male Code(s): C50.929 - MALIGNANT NEOPLASM OF UNSP SITE OF UNSPECIFIED MALE BREAST (7) Chronic kidney disease (CKD) Code(s): N18.9 - CHRONIC KIDNEY DISEASE, UNSPECIFIED Qualifiers: Chronic kidney disease stage: unspecified stage Qualified Code(s): N18.9 - Chronic kidney disease, unspecified (8) Coronary artery disease Code(s): I25.10 - ATHSCL HEART DISEASE OF [place] CORONARY ARTERY W/O ANG PCTRS Qualifiers: Coronary Disease-Associated Artery/Lesion type: [place] artery [place] vs. transplanted heart: [place] heart Associated angina: without angina Qualified Code(s): I25.10 - Atherosclerotic heart disease of [place] coronary artery without angina pectoris (9) Pacemaker Code(s): Z95.0 - PRESENCE OF CARDIAC PACEMAKER (10) Pleural effusion Code(s): J90 - PLEURAL EFFUSION, NOT ELSEWHERE CLASSIFIED
--- NOTE | 2018-04-15 14:57 | PN ---
Progress Note, Physician History of Present Illness: pulmonary alert,comfortable,-resp distress,chest tube with min drainage - Current Medication List Current Medications: Active Medications Acetaminophen (Tylenol -) 650 mg PO Q6H PRN PRN Reason: MODERATE PAIN Last Admin: 04/06/18 10:50 Dose: 650 mg Carvedilol (Coreg -) 25 mg PO BID [facility] Last Admin: 04/15/18 09:25 Dose: 25 mg Dextrose (Glucose Tablet -) 4 gm PO ONCE PRN PRN Reason: BG < 60mg/dl Last Admin: 04/15/18 01:20 Dose: 4 gm Guaifenesin (Robitussin -) 10 ml PO Q6H PRN PRN Reason: COUGH Last Admin: 04/02/18 22:15 Dose: 10 ml Insulin Aspart (Novolog Vial Sliding Scale -) 1 vial SQ BIDI [facility]; Protocol Last Admin: 04/15/18 06:25 Dose: Not Given Mirtazapine (Remeron -) 7.5 mg PO HS [facility] Last Admin: 04/14/18 22:02 Dose: 7.5 mg Nystatin (Nystop Powder -) 1 applic TP QSHIFT [facility] Last Admin: 04/15/18 06:25 Dose: 1 applic Pantoprazole Sodium (Protonix -) 40 mg PO DAILY [facility] Last Admin: 04/15/18 09:25 Dose: 40 mg Polyethylene Glycol (Miralax (For Daily Use) -) 17 gm PO BID [facility] Last Admin: 04/15/18 09:25 Dose: Not Given Sacubitril/Valsartan (Entresto 24 Mg-26 Mg Tablet) 1 tab PO BID [facility] Last Admin: 04/15/18 09:25 Dose: 1 tab Senna (Senna -) 2 tab PO HS PRN PRN Reason: CONSTIPATION Last Admin: 04/07/18 00:08 Dose: 2 tab Sertraline HCl (Zoloft -) 25 mg PO DAILY [facility] Last Admin: 04/15/18 09:25 Dose: 25 mg Tamsulosin HCl (Flomax -) 0.4 mg PO DAILY@0830 [facility] Last Admin: 04/15/18 09:25 Dose: 0.4 mg - Objective Vital Signs: Vital Signs Temperature 98.0 F 04/15/18 09:24 Pulse Rate 71 04/15/18 09:24 Respiratory Rate 18 04/15/18 09:00 Blood Pressure 119/63 04/15/18 09:24 O2 Sat by Pulse Oximetry (%) 97 04/15/18 09:00 Constitutional: Yes: Well Nourished, Calm Eyes: Yes: WNL HENT: Yes: WNL Neck: Yes: WNL Cardiovascular: Yes: Pulse Irregular, S1, S2 Respiratory: Yes: Diminished Gastrointestinal: Yes: Normal Bowel Sounds, Soft Extremities: Yes: WNL Edema: No Labs: CBC, BMP 04/13/18 07:00 INR, PTT INR 2.80 (0.83-1.09) H 04/15/18 06:10 - ....Imaging Chest X-ray: Report Reviewed, Image Reviewed (no change r pleural effusion) Assessment/Plan Problem List - Problems (1) Incarcerated hernia Code(s): K46.0 - UNSP ABDOMINAL HERNIA WITH OBSTRUCTION, WITHOUT GANGRENE NOT A SURGICAL CANDIDATE (2) Acute on chronic renal failure Code(s): N17.9 - ACUTE KIDNEY FAILURE, UNSPECIFIED; N18.9 - CHRONIC KIDNEY DISEASE, UNSPECIFIED Qualifiers: Chronic kidney disease stage: stage 3 (moderate) (3) Afib Code(s): I48.91 - UNSPECIFIED ATRIAL FIBRILLATION Qualifiers: Atrial fibrillation type: persistent Qualified Code(s): I48.1 - Persistent atrial fibrillation (4) Anemia Code(s): D64.9 - ANEMIA, UNSPECIFIED Qualifiers: Anemia type: unspecified type Qualified Code(s): D64.9 - Anemia, unspecified (5) Anticoagulated on Coumadin Code(s): Z79.01 - SUPPLY CHAIN CONSULTANT (CURRENT) USE OF ANTICOAGULANTS (6) Coronary artery disease Code(s): I25.10 - ATHSCL HEART DISEASE OF [place] CORONARY ARTERY W/O ANG PCTRS Qualifiers: Coronary Disease-Associated Artery/Lesion type: [place] artery [place] vs. transplanted heart: [place] heart Associated angina: without angina Qualified Code(s): I25.10 - Atherosclerotic heart disease of [place] coronary artery without angina pectoris (7) HTN (hypertension) Code(s): I10 - ESSENTIAL (PRIMARY) HYPERTENSION Qualifiers: Hypertension type: essential hypertension Qualified Code(s): I10 - Essential (primary) hypertension (8) Hyperlipidemia Code(s): E78.5 - HYPERLIPIDEMIA, UNSPECIFIED Qualifiers: Hyperlipidemia type: pure hypercholesterolemia Qualified Code(s): E78.00 - Pure hypercholesterolemia, unspecified; E78.0 - Pure hypercholesterolemia (9) Pacemaker Code(s): Z95.0 - PRESENCE OF CARDIAC PACEMAKER (10) Pleural effusion, right Code(s): J90 - PLEURAL EFFUSION, NOT ELSEWHERE CLASSIFIED (11) Pulmonary hypertension Code(s): I27.2 - OTHER SECONDARY PULMONARY HYPERTENSION * DO NOT USE * (12) Sick sinus syndrome Code(s): I49.5 - SICK SINUS SYNDROME (13) Status post coronary artery stent placement Code(s): Z95.5 - PRESENCE OF CORONARY ANGIOPLASTY IMPLANT AND GRAFT (14) Supratherapeutic INR Code(s): R79.1 - ABNORMAL COAGULATION PROFILE (15) Systolic and diastolic CHF, acute on chronic Code(s): I50.43 - ACUTE ON CHRONIC COMBINED SYSTOLIC AND DIASTOLIC HRT FAIL (16) Type 2 diabetes mellitus Code(s): E11.9 - TYPE 2 DIABETES MELLITUS WITHOUT COMPLICATIONS Qualifiers: Diabetes mellitus complication status: with kidney complications Diabetes mellitus complication detail: with chronic kidney disease Chronic kidney disease stage: stage 3 (moderate) A/P Incarcerated Hernia Right Pleural Effusion S/P chest tube h/o Breast Ca Acute on Chronic Renal Failure LV Systolic Dysfunction CAD Atrial Fibrillation/AV block s/p PPM Mitral Regurgitation HTN DM - inhaled bronchodilators - O2 to keep SpO2 >90% - chest x-ray - consider pleur-x catheter will discuss with daughter DR AKINS
[2018-04-15] MEDS: MIRTAZAPINE 15 MG TABLET (FP) PO SCH (22:12)
[2018-04-16] MEDS: NYSTATIN POWDER 100,000 UNITS/GM - 15 GM TOPICAL POWDER TP SCH ×2 (06:35→21:28)
[2018-04-16 09:01] LABS: BASO % 0.3 % (0-2.0); EOS % 1.4 % (0-4.5); HEMATOCRIT 28.3 % (35.4-49); HEMOGLOBIN 9.3 GM/dL (11.7-16.9); LYMPH % 10.5 % (8-40); MCH 31.4 pg (25.7-33.7); MCHC 32.7 g/dl (32.0-35.9); MEAN PLT VOLUME 8.5 fl (7.5-11.1); MONO % 10.6 % (3.8-10.2); NEUT % 77.2 % (42.8-82.8); PLATELET COUNT 189 K/MM3 (134-434); RBC 2.95 M/mm3 (4.00-5.60); RDW 16.2 % (11.9-15.9); WHITE BLOOD COUNT 6.7 K/mm3 (4.0-10.0)
[2018-04-16] MEDS ORDERED: PT OWN MED DRAWER 7, Y5N ONE ×2 (09:06→16:55)
[2018-04-16 09:09] LABS: INR 2.52 (0.83-1.09)
[2018-04-16] MEDS: CARVEDILOL 25 MG TABLET (FP) PO SCH ×2 (09:11→21:28)
[2018-04-16] MEDS: SACUBITRIL/VALSARTAN 24 MG-26 MG TABLET PO SCH ×2 (09:18→21:28)
[2018-04-16] MEDS: POLYETHYLENE GLYCOL 3350 119 GM BTL PO SCH ×2 (09:18→21:28)
[2018-04-16] MEDS: SERTRALINE HCL 25 MG TABLET (FP) PO SCH (09:26)
[2018-04-16] MEDS: PANTOPRAZOLE 40 MG TABLET (FP) PO SCH (09:26)
[2018-04-16] MEDS: TAMSULOSIN HCL 0.4 MG CAP PO SCH (09:26)
[2018-04-16 09:30] LABS: ALBUMIN 1.4 g/dl (3.4-5.0); ALK PHOS 188 U/L (45-117); ANION GAP 5 MMOL/L (8-16); BILIRUBIN,TOTAL 0.5 mg/dL (0.2-1); BLOOD UREA NITROGEN 51 mg/dL (7-18); CHLORIDE 108 mmol/L (98-107); CO2 27 mmol/L (21-32); CREATININE 1.9 mg/dL (0.55-1.3); GLUCOSE,RANDOM 112 mg/dL (74-106); POTASSIUM 5.1 mmol/L (3.5-5.1); SGOT/AST 14 U/L (15-37); SGPT/ALT 18 U/L (13-61); SODIUM 140 mmol/L (136-145); TOT PROT 4.5 g/dl (6.4-8.2)
--- NOTE | 2018-04-16 11:15 | PN ---
Progress Note (short form) - Note Progress Note: no distress chest tube - s/p replacement Ct chest noted-- effusion is large BP low meds held pt is awake no complaints no SOB, has occasional cough Vital Signs - 24 hr 04/15/18 04/15/18 04/15/18 14:45 18:00 21:00 Temperature 98.2 F 98.3 F Pulse Rate 69 81 Respiratory 18 18 20 Rate Blood Pressure 91/56 L 104/58 L O2 Sat by Pulse 96 Oximetry (%) 04/15/18 04/16/18 04/16/18 22:00 00:00 09:00 Temperature 98.3 F Pulse Rate 76 56 L Respiratory 20 20 Rate Blood Pressure 90/45 L 98/55 L O2 Sat by Pulse 97 Oximetry (%) 04/16/18 10:00 Temperature 97.7 F Pulse Rate 67 Respiratory 18 Rate Blood Pressure 84/52 L O2 Sat by Pulse Oximetry (%) Current Medications Generic Name Dose Route Start Last Admin Trade Name Freq PRN Reason Stop Dose Admin Acetaminophen 650 mg 03/31/18 10:44 04/06/18 10:50 Tylenol - PO 650 mg Q6H PRN Administration MODERATE PAIN Carvedilol 25 mg 03/19/18 22:00 04/16/18 09:11 Coreg - PO Not Given BID [facility] Dextrose 4 gm 03/19/18 23:22 04/15/18 01:20 Glucose Tablet - PO 4 gm ONCE PRN Administration BG < 60mg/dl Guaifenesin 10 ml 03/18/18 18:32 04/02/18 22:15 Robitussin - PO 10 ml Q6H PRN Administration COUGH Mirtazapine 7.5 mg 04/06/18 22:00 04/15/18 22:12 Remeron - PO 7.5 mg HS [facility] Administration Nystatin 1 applic 03/28/18 14:00 04/16/18 06:35 Nystop Powder - TP Not Given QSHIFT [facility] Pantoprazole Sodium 40 mg 03/20/18 10:00 04/16/18 09:26 Protonix - PO 40 mg DAILY [facility] Administration Polyethylene Glycol 17 gm 03/23/18 11:30 04/16/18 09:18 Miralax (For Daily Use) - PO Not Given BID [facility] Sacubitril/Valsartan 1 tab 04/13/18 12:45 04/16/18 09:18 Entresto 24 Mg-26 Mg Tablet PO Not Given BID [facility] Senna 2 tab 03/23/18 11:16 04/07/18 00:08 Senna - PO 2 tab HS PRN Administration CONSTIPATION Sertraline HCl 25 mg 04/07/18 10:00 04/16/18 09:26 Zoloft - PO 25 mg DAILY [facility] Administration Tamsulosin HCl 0.4 mg 03/20/18 08:30 04/16/18 09:26 Flomax - PO 0.4 mg DAILY@0830 [facility] Administration Laboratory Results - last 24 hr 04/15/18 04/16/18 04/16/18 16:49 05:56 08:00 WBC RBC Hgb Hct MCV MCH MCHC RDW Plt Count MPV Absolute Neuts (auto) Neutrophils % Lymphocytes % Monocytes % Eosinophils % Basophils % Nucleated RBC % PT with INR 30.00 H INR 2.52 H Sodium Potassium Chloride Carbon Dioxide Anion Gap BUN Creatinine Creat Clearance w eGFR POC Glucometer 170 155 Random Glucose Hemoglobin A1c % Calcium Total Bilirubin AST ALT Alkaline Phosphatase Total Protein Albumin 04/16/18 04/16/18 04/16/18 08:00 08:00 08:00 WBC 6.7 RBC 2.95 L Hgb 9.3 L Hct 28.3 L MCV 96.0 MCH 31.4 MCHC 32.7 RDW 16.2 H Plt Count 189 MPV 8.5 Absolute Neuts (auto) 5.2 Neutrophils % 77.2 Lymphocytes % 10.5 D Monocytes % 10.6 H Eosinophils % 1.4 Basophils % 0.3 Nucleated RBC % 0 PT with INR INR Sodium 140 Potassium 5.1 Chloride 108 H Carbon Dioxide 27 Anion Gap 5 L BUN 51 H Creatinine 1.9 H Creat Clearance w eGFR 34.19 POC Glucometer Random Glucose 112 H Hemoglobin A1c % 5.6 Calcium 9.0 Total Bilirubin 0.5 AST 14 L ALT 18 Alkaline Phosphatase 188 H Total Protein 4.5 L Albumin 1.4 L Physical Examination Constitutional: Yes: No Distress, comfortable Cardiovascular: Yes: Regular Rate and Rhythm Respiratory: Yes: Diminished - chest tube Gastrointestinal: Yes: soft/ hernia + bs present, NT Edema: No Neuro- a0x3 a/p stable not SOB no JVD nebs prn hold Coumadin in anticipation for Pleurx catheter placement monitor for hypoglycemia continue with meds spoke with Pulmonary to speak with daughter with regards to pleurx vs no interventions as pt is bedbound, not in distress, does not have sob Problem List - Problems (1) Incarcerated hernia Code(s): K46.0 - UNSP ABDOMINAL HERNIA WITH OBSTRUCTION, WITHOUT GANGRENE (2) Abnormal INR Code(s): R79.1 - ABNORMAL COAGULATION PROFILE (3) Afib Code(s): I48.91 - UNSPECIFIED ATRIAL FIBRILLATION Qualifiers: Atrial fibrillation type: persistent Qualified Code(s): I48.1 - Persistent atrial fibrillation (4) Anemia Code(s): D64.9 - ANEMIA, UNSPECIFIED Qualifiers: Anemia type: unspecified type Qualified Code(s): D64.9 - Anemia, unspecified (5) Anticoagulated on Coumadin Code(s): Z79.01 - PENITENTIARY (CURRENT) USE OF ANTICOAGULANTS (6) Breast cancer in male Code(s): C50.929 - MALIGNANT NEOPLASM OF UNSP SITE OF UNSPECIFIED MALE BREAST (7) Chronic kidney disease (CKD) Code(s): N18.9 - CHRONIC KIDNEY DISEASE, UNSPECIFIED Qualifiers: Chronic kidney disease stage: unspecified stage Qualified Code(s): N18.9 - Chronic kidney disease, unspecified
--- NOTE | 2018-04-16 13:09 | PN ---
Progress Note, Physician History of Present Illness: PULMONARY ALERT,NO DISTRESS,MIN CHEST TUBE DRAINAGE 60CC,CHEST CT NO CHANGE SOLOMON EFFUSIONS R>L - Current Medication List Current Medications: Active Medications Acetaminophen (Tylenol -) 650 mg PO Q6H PRN PRN Reason: MODERATE PAIN Last Admin: 04/06/18 10:50 Dose: 650 mg Carvedilol (Coreg -) 25 mg PO BID [facility] Last Admin: 04/16/18 09:11 Dose: Not Given Dextrose (Glucose Tablet -) 4 gm PO ONCE PRN PRN Reason: BG < 60mg/dl Last Admin: 04/15/18 01:20 Dose: 4 gm Guaifenesin (Robitussin -) 10 ml PO Q6H PRN PRN Reason: COUGH Last Admin: 04/02/18 22:15 Dose: 10 ml Mirtazapine (Remeron -) 7.5 mg PO HS [facility] Last Admin: 04/15/18 22:12 Dose: 7.5 mg Nystatin (Nystop Powder -) [facility] Last Admin: 04/16/18 06:35 Dose: Not Given Pantoprazole Sodium (Protonix -) 40 mg PO DAILY [facility] Last Admin: 04/16/18 09:26 Dose: 40 mg Polyethylene Glycol (Miralax (For Daily Use) -) 17 gm PO BID [facility] Last Admin: 04/16/18 09:18 Dose: Not Given Sacubitril/Valsartan (Entresto 24 Mg-26 Mg Tablet) 1 tab PO BID [facility] Last Admin: 04/16/18 09:18 Dose: Not Given Senna (Senna -) 2 tab PO PRN PRN Reason: CONSTIPATION Last Admin: 04/07/18 00:08 Dose: 2 tab Sertraline HCl (Zoloft -) 25 mg PO DAILY [facility] Last Admin: 04/16/18 09:26 Dose: 25 mg Tamsulosin HCl (Flomax -) 0.4 mg PO DAILY@0830 [facility] Last Admin: 04/16/18 09:26 Dose: 0.4 mg - Objective Vital Signs: Vital Signs Temperature 97.7 F 04/16/18 10:00 Pulse Rate 67 04/16/18 10:00 Respiratory Rate 18 04/16/18 10:00 Blood Pressure 84/52 L 04/16/18 10:00 O2 Sat by Pulse Oximetry (%) 97 04/16/18 09:00 Constitutional: Yes: Calm, Thin Eyes: Yes: WNL HENT: Yes: WNL Neck: Yes: WNL Cardiovascular: Yes: Pulse Irregular, S1, S2 Respiratory: Yes: Diminished Gastrointestinal: Yes: Normal Bowel Sounds, Soft Extremities: Yes: WNL Edema: No Labs: CBC, BMP 04/16/18 08:00 04/16/18 08:00 INR, PTT INR 2.52 (0.83-1.09) H 04/16/18 08:00 - ....Imaging Cat Scan: Report Reviewed, Image Reviewed Assessment/Plan Problem List - Problems (1) Incarcerated hernia Code(s): K46.0 - UNSP ABDOMINAL HERNIA WITH OBSTRUCTION, WITHOUT GANGRENE NOT A SURGICAL CANDIDATE (2) Acute on chronic renal failure Code(s): N17.9 - ACUTE KIDNEY FAILURE, UNSPECIFIED; N18.9 - CHRONIC KIDNEY DISEASE, UNSPECIFIED Qualifiers: Chronic kidney disease stage: stage 3 (moderate) (3) Afib Code(s): I48.91 - UNSPECIFIED ATRIAL FIBRILLATION Qualifiers: Atrial fibrillation type: persistent Qualified Code(s): I48.1 - Persistent atrial fibrillation (4) Anemia Code(s): D64.9 - ANEMIA, UNSPECIFIED Qualifiers: Anemia type: unspecified type Qualified Code(s): D64.9 - Anemia, unspecified (5) Anticoagulated on Coumadin Code(s): Z79.01 - CORRECTIONAL COOK (CURRENT) USE OF ANTICOAGULANTS (6) Coronary artery disease Code(s): I25.10 - ATHSCL HEART DISEASE OF [place] CORONARY ARTERY W/O ANG PCTRS Qualifiers: Coronary Disease-Associated Artery/Lesion type: [place] artery [place] vs. transplanted heart: [place] heart Associated angina: without angina Qualified Code(s): I25.10 - Atherosclerotic heart disease of [place] coronary artery without angina pectoris (7) HTN (hypertension) Code(s): I10 - ESSENTIAL (PRIMARY) HYPERTENSION Qualifiers: Hypertension type: essential hypertension Qualified Code(s): I10 - Essential (primary) hypertension (8) Hyperlipidemia Code(s): E78.5 - HYPERLIPIDEMIA, UNSPECIFIED Qualifiers: Hyperlipidemia type: pure hypercholesterolemia Qualified Code(s): E78.00 - Pure hypercholesterolemia, unspecified; E78.0 - Pure hypercholesterolemia (9) Pacemaker Code(s): Z95.0 - PRESENCE OF CARDIAC PACEMAKER (10) Pleural effusion, right Code(s): J90 - PLEURAL EFFUSION, NOT ELSEWHERE CLASSIFIED (11) Pulmonary hypertension Code(s): I27.2 - OTHER SECONDARY PULMONARY HYPERTENSION * DO NOT USE * (12) Sick sinus syndrome Code(s): I49.5 - SICK SINUS SYNDROME (13) Status post coronary artery stent placement Code(s): Z95.5 - PRESENCE OF CORONARY ANGIOPLASTY IMPLANT AND GRAFT (14) Supratherapeutic INR Code(s): R79.1 - ABNORMAL COAGULATION PROFILE (15) Systolic and diastolic CHF, acute on chronic Code(s): I50.43 - ACUTE ON CHRONIC COMBINED SYSTOLIC AND DIASTOLIC HRT FAIL (16) Type 2 diabetes mellitus Code(s): E11.9 - TYPE 2 DIABETES MELLITUS WITHOUT COMPLICATIONS Qualifiers: Diabetes mellitus complication status: with kidney complications Diabetes mellitus complication detail: with chronic kidney disease Chronic kidney disease stage: stage 3 (moderate) A/P Incarcerated Hernia Right Pleural Effusion S/P chest tube transudate h/o Breast Ca Acute on Chronic Renal Failure LV Systolic Dysfunction CAD Atrial Fibrillation/AV block s/p PPM Mitral Regurgitation HTN DM - inhaled bronchodilators - O2 to keep SpO2 >90% - consider pleur-x catheter will discuss with daughter DR AKINS
[2018-04-16 13:44] LABS: ANISOCYTOSIS 2+; MACROCYTOSIS 1+; OVALOCYTE 1+; PLATELET ESTIMATE NORMAL; TEAR DROP CELLS 1+
[2018-04-16] MEDS: MIRTAZAPINE 15 MG TABLET (FP) PO SCH (21:28)
[2018-04-17] MEDS: NYSTATIN POWDER 100,000 UNITS/GM - 15 GM TOPICAL POWDER TP SCH ×3 (06:05→21:15)
[2018-04-17] MEDS: TAMSULOSIN HCL 0.4 MG CAP PO SCH (08:30)
[2018-04-17 08:39] LABS: INR 1.94 (0.83-1.09)
--- NOTE | 2018-04-17 09:27 | PN ---
Progress Note (short form) - Note Progress Note: no distress chest tube - s/p replacement Ct chest noted-- effusion is large BP better pt is awake no complaints Vital Signs - 24 hr 04/16/18 04/16/18 04/17/18 21:00 22:00 06:00 Temperature 97.6 F Pulse Rate 80 70 Respiratory 20 20 20 Rate Blood Pressure 90/80 101/65 O2 Sat by Pulse 97 Oximetry (%) 04/17/18 04/17/18 04/17/18 09:00 10:00 14:15 Temperature 97.3 F L 98.2 F Pulse Rate 73 77 Respiratory 20 20 20 Rate Blood Pressure 114/61 97/57 L O2 Sat by Pulse 100 Oximetry (%) Current Medications Generic Name Dose Route Start Last Admin Trade Name Freq PRN Reason Stop Dose Admin Acetaminophen 650 mg 03/31/18 10:44 04/06/18 10:50 Tylenol - PO 650 mg Q6H PRN Administration MODERATE PAIN Carvedilol 12.5 mg 04/17/18 09:36 04/17/18 10:18 Coreg - PO 12.5 mg BID ALEX Administration Dextrose 4 gm 03/19/18 23:22 04/15/18 01:20 Glucose Tablet - PO 4 gm ONCE PRN Administration BG < 60mg/dl Guaifenesin 10 ml 03/18/18 18:32 04/02/18 22:15 Robitussin - PO 10 ml Q6H PRN Administration COUGH Mirtazapine 7.5 mg 04/06/18 22:00 04/16/18 21:28 Remeron - PO 7.5 mg HS [facility]LEX Administration Nystatin 1 applic 03/28/18 14:00 04/17/18 14:52 Nystop Powder - TP 1 applic QSHIFT [facility]LEX Administration Pantoprazole Sodium 40 mg 03/20/18 10:00 04/17/18 10:17 Protonix - PO 40 mg DAILY [facility] Administration Polyethylene Glycol 17 gm 03/23/18 11:30 04/17/18 10:17 Miralax (For Daily Use) - PO 17 grams BID [facility] Administration Sacubitril/Valsartan 1 tab 04/13/18 12:45 04/17/18 10:17 Entresto 24 Mg-26 Mg Tablet PO 1 tab BID [facility] Administration Senna 2 tab 03/23/18 11:16 04/07/18 00:08 Senna - PO 2 tab HS PRN Administration CONSTIPATION Sertraline HCl 25 mg 04/07/18 10:00 04/17/18 10:17 Zoloft - PO 25 mg DAILY [facility] Administration Tamsulosin HCl 0.4 mg 03/20/18 08:30 04/17/18 08:30 Flomax - PO 0.4 mg DAILY@0830 [facility]LEX Administration Laboratory Results - last 24 hr 04/16/18 04/17/18 04/17/18 21:26 06:20 08:00 PT with INR 23.00 H INR 1.94 H POC Glucometer 130 108 Physical Examination Constitutional: Yes: No Distress, comfortable Cardiovascular: Yes: Regular Rate and Rhythm Respiratory: Yes: Diminished - chest tube Gastrointestinal: Yes: soft/ hernia + bs present, NT Edema: No Neuro- a0x3 a/p stable not SOB no JVD nebs prn hold Coumadin in anticipation for Pleurx catheter placement-- daughter in agreement now monitor for hypoglycemia continue with meds Problem List - Problems (1) Incarcerated hernia Code(s): K46.0 - UNSP ABDOMINAL HERNIA WITH OBSTRUCTION, WITHOUT GANGRENE (2) Abnormal INR Code(s): R79.1 - ABNORMAL COAGULATION PROFILE (3) Afib Code(s): I48.91 - UNSPECIFIED ATRIAL FIBRILLATION Qualifiers: Atrial fibrillation type: persistent Qualified Code(s): I48.1 - Persistent atrial fibrillation (4) Anemia Code(s): D64.9 - ANEMIA, UNSPECIFIED Qualifiers: Anemia type: unspecified type Qualified Code(s): D64.9 - Anemia, unspecified (5) Anticoagulated on Coumadin Code(s): Z79.01 - BAND TUMBLER (CURRENT) USE OF ANTICOAGULANTS (6) Breast cancer in male Code(s): C50.929 - MALIGNANT NEOPLASM OF UNSP SITE OF UNSPECIFIED MALE BREAST (7) Chronic kidney disease (CKD) Code(s): N18.9 - CHRONIC KIDNEY DISEASE, UNSPECIFIED Qualifiers: Chronic kidney disease stage: unspecified stage Qualified Code(s): N18.9 - Chronic kidney disease, unspecified
[2018-04-17] MEDS ORDERED: PT OWN MED DRAWER 7, Y5N ONE (10:00)
[2018-04-17] MEDS: SACUBITRIL/VALSARTAN 24 MG-26 MG TABLET PO SCH ×2 (10:17→21:15)
[2018-04-17] MEDS: SERTRALINE HCL 25 MG TABLET (FP) PO SCH (10:17)
[2018-04-17] MEDS: PANTOPRAZOLE 40 MG TABLET (FP) PO SCH (10:17)
[2018-04-17] MEDS: POLYETHYLENE GLYCOL 3350 119 GM BTL PO SCH ×2 (10:17→21:16)
[2018-04-17] MEDS: CARVEDILOL 12.5 MG TABLET (FP) PO SCH ×2 (10:18→21:15)
--- NOTE | 2018-04-17 13:47 | PN ---
Progress Note, Physician History of Present Illness: Resting, dyspnea and cough resolved. Right chest tube draining. - Current Medication List Current Medications: Active Medications Acetaminophen (Tylenol -) 650 mg PO Q6H PRN PRN Reason: MODERATE PAIN Last Admin: 04/06/18 10:50 Dose: 650 mg Carvedilol (Coreg -) 12.5 mg PO BID [facility] Last Admin: 04/17/18 10:18 Dose: 12.5 mg Dextrose (Glucose Tablet -) 4 gm PO ONCE PRN PRN Reason: BG < 60mg/dl Last Admin: 04/15/18 01:20 Dose: 4 gm Guaifenesin (Robitussin -) 10 ml PO Q6H PRN PRN Reason: COUGH Last Admin: 04/02/18 22:15 Dose: 10 ml Mirtazapine (Remeron -) 7.5 mg PO HS [facility] Last Admin: 04/16/18 21:28 Dose: 7.5 mg Nystatin (Nystop Powder -) 1 applic TP QSHIFT [facility] Last Admin: 04/17/18 06:05 Dose: Not Given Pantoprazole Sodium (Protonix -) 40 mg PO DAILY [facility] Last Admin: 04/17/18 10:17 Dose: 40 mg Polyethylene Glycol (Miralax (For Daily Use) -) 17 gm PO BID [facility] Last Admin: 04/17/18 10:17 Dose: 17 grams Sacubitril/Valsartan (Entresto 24 Mg-26 Mg Tablet) 1 tab PO BID [facility] Last Admin: 04/17/18 10:17 Dose: 1 tab Senna (Senna -) 2 tab PO HS PRN PRN Reason: CONSTIPATION Last Admin: 04/07/18 00:08 Dose: 2 tab Sertraline HCl (Zoloft -) 25 mg PO DAILY [facility] Last Admin: 04/17/18 10:17 Dose: 25 mg Tamsulosin HCl (Flomax -) 0.4 mg PO DAILY@0830 [facility] Last Admin: 04/17/18 08:30 Dose: 0.4 mg - Objective Vital Signs: Vital Signs Temperature 97.3 F L 04/17/18 10:00 Pulse Rate 73 04/17/18 10:00 Respiratory Rate 20 04/17/18 10:00 Blood Pressure 114/61 04/17/18 10:00 O2 Sat by Pulse Oximetry (%) 100 04/17/18 09:00 Constitutional: Yes: No Distress, Calm, Thin Neck: Yes: Supple Cardiovascular: Yes: Regular Rate and Rhythm Respiratory: Yes: Regular, Diminished, Other (Right chest tube in situ) Gastrointestinal: Yes: Normal Bowel Sounds, Soft Edema: No Labs: CBC, BMP 04/16/18 08:00 04/16/18 08:00 INR, PTT INR 1.94 (0.83-1.09) H 04/17/18 08:00 - ....Imaging Cat Scan: Report Reviewed (Chest CT: Right effusion) Problem List - Problems (1) Incarcerated hernia Code(s): K46.0 - UNSP ABDOMINAL HERNIA WITH OBSTRUCTION, WITHOUT GANGRENE (2) Acute on chronic renal failure Code(s): N17.9 - ACUTE KIDNEY FAILURE, UNSPECIFIED; N18.9 - CHRONIC KIDNEY DISEASE, UNSPECIFIED Qualifiers: Chronic kidney disease stage: stage 3 (moderate) (3) Afib Code(s): I48.91 - UNSPECIFIED ATRIAL FIBRILLATION Qualifiers: Atrial fibrillation type: persistent Qualified Code(s): I48.1 - Persistent atrial fibrillation (4) Anemia Code(s): D64.9 - ANEMIA, UNSPECIFIED Qualifiers: Anemia type: unspecified type Qualified Code(s): D64.9 - Anemia, unspecified (5) Anticoagulated on Coumadin Code(s): Z79.01 - ASSISTED (CURRENT) USE OF ANTICOAGULANTS (6) Coronary artery disease Code(s): I25.10 - ATHSCL HEART DISEASE OF [place] CORONARY ARTERY W/O ANG PCTRS Qualifiers: Coronary Disease-Associated Artery/Lesion type: [place] artery [place] vs. transplanted heart: [place] heart Associated angina: without angina Qualified Code(s): I25.10 - Atherosclerotic heart disease of [place] coronary artery without angina pectoris (7) HTN (hypertension) Code(s): I10 - ESSENTIAL (PRIMARY) HYPERTENSION Qualifiers: Hypertension type: essential hypertension Qualified Code(s): I10 - Essential (primary) hypertension (8) Hyperlipidemia Code(s): E78.5 - HYPERLIPIDEMIA, UNSPECIFIED Qualifiers: Hyperlipidemia type: pure hypercholesterolemia Qualified Code(s): E78.00 - Pure hypercholesterolemia, unspecified; E78.0 - Pure hypercholesterolemia (9) Pacemaker Code(s): Z95.0 - PRESENCE OF CARDIAC PACEMAKER (10) Pleural effusion, right Code(s): J90 - PLEURAL EFFUSION, NOT ELSEWHERE CLASSIFIED (11) Pulmonary hypertension Code(s): I27.2 - OTHER SECONDARY PULMONARY HYPERTENSION * DO NOT USE * (12) Sick sinus syndrome Code(s): I49.5 - SICK SINUS SYNDROME (13) Status post coronary artery stent placement Code(s): Z95.5 - PRESENCE OF CORONARY ANGIOPLASTY IMPLANT AND GRAFT (14) Systolic and diastolic CHF, acute on chronic Code(s): I50.43 - ACUTE ON CHRONIC COMBINED SYSTOLIC AND DIASTOLIC HRT FAIL (15) Type 2 diabetes mellitus Code(s): E11.9 - TYPE 2 DIABETES MELLITUS WITHOUT COMPLICATIONS Qualifiers: Diabetes mellitus complication status: with kidney complications Diabetes mellitus complication detail: with chronic kidney disease Chronic kidney disease stage: stage 3 (moderate) Assessment/Plan 02/09/2018 Echo: Normal LV size with severely decreased LV fxn, severe TR, severe pulm HTN, pacer in RV 1. Incarcerated spigelian hernia without strangulation, for conservative management 2. Right pleural effusion with underlying history of breast carcinoma post mastectomy post chemotherapy, s/p pigtail catheter placement and chest tube 3. 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 CAD post PCI/stent angina pectoris 5. Persistent/chronic atrial fibrillation on anticoagulation, [id number] score of 6 with therapeutic INR 6. AV block post PPM 7. Mitral valve and tricuspid valve regurgitation 8. HTN/HCVD 9. DM 10. Hypercholesterolemia 11. Acute on CKD with proteinuria and hyperkalemia resolving PLAN: 1. Continue Coumadin per INR 2. Continue Carvedilol 25 mg BID as tolerated (BP permitting) 3. Entresto 24/26 mg BID and monitor renal function and electrolytes 4. Chest tube management, bronchodilator and O2 as needed, consider Pleur-X at this point
--- NOTE | 2018-04-17 14:19 | PN ---
Progress Note, Physician History of Present Illness: pulmonary alert,no distress on nasal o2. discussed with pts daughter who agrees with pleur -x placement for drainage r pleural effusion - Current Medication List Current Medications: Active Medications Acetaminophen (Tylenol -) 650 mg PO Q6H PRN PRN Reason: MODERATE PAIN Last Admin: 04/06/18 10:50 Dose: 650 mg Carvedilol (Coreg -) 12.5 mg PO BID [facility] [place] Last Admin: 04/17/18 10:18 Dose: 12.5 mg Dextrose (Glucose Tablet -) 4 gm PO ONCE PRN PRN Reason: BG < 60mg/dl Last Admin: 04/15/18 01:20 Dose: 4 gm Guaifenesin (Robitussin -) 10 ml PO Q6H PRN PRN Reason: COUGH Last Admin: 04/02/18 22:15 Dose: 10 ml Mirtazapine (Remeron -) 7.5 mg PO HS [facility] Last Admin: 04/16/18 21:28 Dose: 7.5 mg Nystatin (Nystop Powder -) 1 applic TP QSHIFT [facility] Last Admin: 04/17/18 06:05 Dose: Not Given Pantoprazole Sodium (Protonix -) 40 mg PO DAILY [facility] [place] Last Admin: 04/17/18 10:17 Dose: 40 mg Polyethylene Glycol (Miralax (For Daily Use) -) 17 gm PO BID [facility] [place] Last Admin: 04/17/18 10:17 Dose: 17 grams Sacubitril/Valsartan (Entresto 24 Mg-26 Mg Tablet) 1 tab PO BID [facility] [place] Last Admin: 04/17/18 10:17 Dose: 1 tab Senna (Senna -) 2 tab PO HS PRN PRN Reason: CONSTIPATION Last Admin: 04/07/18 00:08 Dose: 2 tab Sertraline HCl (Zoloft -) 25 mg PO DAILY [facility] [place] Last Admin: 04/17/18 10:17 Dose: 25 mg Tamsulosin HCl (Flomax -) 0.4 mg PO DAILY@0830 [facility] Last Admin: 04/17/18 08:30 Dose: 0.4 mg - Objective Vital Signs: Vital Signs Temperature 97.3 F L 04/17/18 10:00 Pulse Rate 73 04/17/18 10:00 Respiratory Rate 20 04/17/18 10:00 Blood Pressure 114/61 04/17/18 10:00 O2 Sat by Pulse Oximetry (%) 100 04/17/18 09:00 Constitutional: Yes: Calm, Thin Eyes: Yes: WNL HENT: Yes: WNL Neck: Yes: WNL Cardiovascular: Yes: Pulse Irregular, S1, S2 Respiratory: Yes: Diminished Gastrointestinal: Yes: Normal Bowel Sounds, Soft Extremities: Yes: WNL Edema: No Labs: CBC, BMP Assessment/Plan Problem List - Problems (1) Incarcerated hernia Code(s): K46.0 - UNSP ABDOMINAL HERNIA WITH OBSTRUCTION, WITHOUT GANGRENE NOT A SURGICAL CANDIDATE (2) Acute on chronic renal failure Code(s): N17.9 - ACUTE KIDNEY FAILURE, UNSPECIFIED; N18.9 - CHRONIC KIDNEY DISEASE, UNSPECIFIED Qualifiers: Chronic kidney disease stage: stage 3 (moderate) (3) Afib Code(s): I48.91 - UNSPECIFIED ATRIAL FIBRILLATION Qualifiers: Atrial fibrillation type: persistent Qualified Code(s): I48.1 - Persistent atrial fibrillation (4) Anemia Code(s): D64.9 - ANEMIA, UNSPECIFIED Qualifiers: Anemia type: unspecified type Qualified Code(s): D64.9 - Anemia, unspecified (5) Anticoagulated on Coumadin Code(s): Z79.01 - HALFWAY (CURRENT) USE OF ANTICOAGULANTS (6) Coronary artery disease Code(s): I25.10 - ATHSCL HEART DISEASE OF [place] CORONARY ARTERY W/O ANG PCTRS Qualifiers: Coronary Disease-Associated Artery/Lesion type: [place] artery [place] vs. transplanted heart: [place] heart Associated angina: without angina Qualified Code(s): I25.10 - Atherosclerotic heart disease of [place] coronary artery without angina pectoris (7) HTN (hypertension) Code(s): I10 - ESSENTIAL (PRIMARY) HYPERTENSION Qualifiers: Hypertension type: essential hypertension Qualified Code(s): I10 - Essential (primary) hypertension (8) Hyperlipidemia Code(s): E78.5 - HYPERLIPIDEMIA, UNSPECIFIED Qualifiers: Hyperlipidemia type: pure hypercholesterolemia Qualified Code(s): E78.00 - Pure hypercholesterolemia, unspecified; E78.0 - Pure hypercholesterolemia (9) Pacemaker Code(s): Z95.0 - PRESENCE OF CARDIAC PACEMAKER (10) Pleural effusion, right Code(s): J90 - PLEURAL EFFUSION, NOT ELSEWHERE CLASSIFIED (11) Pulmonary hypertension Code(s): I27.2 - OTHER SECONDARY PULMONARY HYPERTENSION * DO NOT USE * (12) Sick sinus syndrome Code(s): I49.5 - SICK SINUS SYNDROME (13) Status post coronary artery stent placement Code(s): Z95.5 - PRESENCE OF CORONARY ANGIOPLASTY IMPLANT AND GRAFT (14) Supratherapeutic INR Code(s): R79.1 - ABNORMAL COAGULATION PROFILE (15) Systolic and diastolic CHF, acute on chronic Code(s): I50.43 - ACUTE ON CHRONIC COMBINED SYSTOLIC AND DIASTOLIC HRT FAIL (16) Type 2 diabetes mellitus Code(s): E11.9 - TYPE 2 DIABETES MELLITUS WITHOUT COMPLICATIONS Qualifiers: Diabetes mellitus complication status: with kidney complications Diabetes mellitus complication detail: with chronic kidney disease Chronic kidney disease stage: stage 3 (moderate) A/P Incarcerated Hernia Right Pleural Effusion S/P chest tube transudate h/o Breast Ca Acute on Chronic Renal Failure LV Systolic Dysfunction CAD Atrial Fibrillation/AV block s/p PPM Mitral Regurgitation HTN DM - inhaled bronchodilators - O2 to keep SpO2 >90% - IR for pleur-x catheter insertion DR AKINS
[2018-04-17] MEDS: MIRTAZAPINE 15 MG TABLET (FP) PO SCH (21:30)
[2018-04-18 06:55] LABS: INR 1.57 (0.83-1.09); PROTHROMBIN TIME (PATIENT) 18.6 SEC (9.7-13.0)
[2018-04-18] MEDS: NYSTATIN POWDER 100,000 UNITS/GM - 15 GM TOPICAL POWDER TP SCH ×5 (07:14→22:24)
--- NOTE | 2018-04-18 10:37 | CONS ---
DATE OF CONSULTATION: 04/18/2018 PHYSICAL MEDICATION REHABILITATION CONSULTATION HISTORY OF PRESENT ILLNESS: Patient is an 82-year-old male with an extensive past medical history which includes atrial fibrillation on anticoagulation as well as chronic kidney disease, coronary artery disease status post stent, permanent pacemaker for sick sinus syndrome, pulmonary hypertension, as well as breast cancer status post mastectomy, diabetes who was admitted on March 17, 2018, and has had a complicated course. Patient apparently has an incarcerated hernia but is not a surgical candidate. On March 17, he had elevated BUN 43 to creatinine 2.2. His WBCs were 7.4, hemoglobin 11.3, platelet count 200. His INR was supratherapeutic at 4.37. He had slight elevation of his potassium of 5.1. Albumen was low at 2.6. Most recent blood work on April 16, patient has normal WBCs 6.7, hemoglobin 9.3, platelet count of 189. His Potassium remains borderline at 5.1, elevated BUN 51 , creatinine 1.9, but albumin has decreased to 1.4. His INR as of today is subtherapeutic at 1.57. It had been supratherapeutic previously. Patient himself is not cooperative, does not open his eyes, and does not participate in any history or exam. All history taken from his hospital record. Patient was seen by Physical Therapy and apparently was mod assist of 2 for stand-pivot transfer. REVIEW OF PAST MEDICAL AND SURGICAL HISTORY: As above. Also congestive heart failure, hyperlipidemia, hypertension. SOCIAL HISTORY: Apparently lives with a 24-hour live-in home health aide and was at a wheelchair level requiring assistance for activities of daily living. Current function as above. REVIEW OF SYSTEMS: Impossible due to patient n to participating. PHYSICAL EXAMINATION: Thin, cachectic man who keeps his eyes closed. He is curled up on his right side and is not cooperative at all with examination. He moans and grunts but does not respond to any questions. Unable to get full range of motion in his right upper extremity as it withdraws. I can get full range in the hand itself but the elbow he resists any elbow extension or shoulder range of motion. Left hand appears a more natural posture and better range in the left elbow, but again he resists any examination of his shoulder on the left side. In the lower extremities, he has what appears to be full range of motion, and he withdraws to pin stimulus. He has some arthritic changes in his knees, but again very limited examination due to poor patient cooperation and resistance. No skin rash noted. No pitting edema in the lower extremities. OVERALL IMPRESSION: 1. Severe deficits in mobility and activities of daily living. 2. Incarcerated hernia for which he is not a surgical candidate. 3. Atrial fibrillation on anticoagulation status post supratherapeutic INR currently subtherapeutic at 1.57. 4. Pulmonary hypertension. 5. History of coronary artery disease status post stent with a history of congestive heart failure. 6. Acute on chronic kidney disease. 7. History of breast cancer status post mastectomy. 8. Anemia. 9. Increased risk for decubitus ulceration. 10. Possible poor mental status. PLAN/SUGGESTION: 1. Will try to follow up with the patient later in the day. Perhaps he is not awake as of yet, but currently a poor candidate for rehabilitation. 2. Continue to attempt physical therapy for at least range of motion to the upper and lower limbs as well as bed mobility and family or aide training as appropriate. 3. Continue supportive care. 4. Skin precautions. 5. Anticoagulated on Coumadin. No further DVT prophylaxis needed but subtherapeutic. 6. Monitor bowel regimen. Consider laxative if constipated. 7. Disposition: Difficult to determine at this point. Consider hospice care or short term rehab depending on his medical prognosis and response to therapy. Thank you for this referral. ANDREWS MARKS M.D. JACQUELINE/[id number] MTDD
[2018-04-18] MEDS: TAMSULOSIN HCL 0.4 MG CAP PO SCH (11:00)
--- NOTE | 2018-04-18 11:20 | PN ---
Progress Note, Physician History of Present Illness: Resting, dyspnea and cough resolved. Right chest tube draining. - Current Medication List Current Medications: Active Medications Acetaminophen (Tylenol -) 650 mg PO Q6H PRN PRN Reason: MODERATE PAIN Last Admin: 04/06/18 10:50 Dose: 650 mg Carvedilol (Coreg -) 12.5 mg PO BID [facility] Last Admin: 04/17/18 21:15 Dose: Not Given Dextrose (Glucose Tablet -) 4 gm PO ONCE PRN PRN Reason: BG < 60mg/dl Last Admin: 04/15/18 01:20 Dose: 4 gm Guaifenesin (Robitussin -) 10 ml PO Q6H PRN PRN Reason: COUGH Last Admin: 04/02/18 22:15 Dose: 10 ml Mirtazapine (Remeron -) 7.5 mg PO HS [facility] Last Admin: 04/17/18 21:30 Dose: 7.5 mg Nystatin ([facility]ystop Powder -) [facility] Last Admin: 04/18/18 07:14 Dose: Not Given Pantoprazole Sodium (Protonix -) 40 mg PO DAILY [facility] Last Admin: 04/17/18 10:17 Dose: 40 mg Polyethylene Glycol (Miralax (For Daily Use) -) 17 gm PO BID [facility] Last Admin: 04/17/18 21:16 Dose: Not Given Sacubitril/Valsartan (Entresto 24 Mg-26 Mg Tablet) 1 tab PO BID [facility] Last Admin: 04/17/18 21:15 Dose: Not Given Senna (Senna -) 2 tab PO HS PRN PRN Reason: CONSTIPATION Last Admin: 04/07/18 00:08 Dose: 2 tab Sertraline HCl (Zoloft -) 25 mg PO DAILY [facility] Last Admin: 04/17/18 10:17 Dose: 25 mg Tamsulosin HCl (Flomax -) 0.4 mg PO DAILY@0830 [facility] Last Admin: 04/17/18 08:30 Dose: 0.4 mg - Objective Vital Signs: Vital Signs Temperature 97.8 F 04/18/18 06:00 Pulse Rate 90 04/18/18 06:00 Respiratory Rate 20 04/18/18 06:00 Blood Pressure 112/58 L 04/18/18 06:00 O2 Sat by Pulse Oximetry (%) 96 04/17/18 21:00 Constitutional: Yes: No Distress, Calm, Thin Neck: Yes: Supple Cardiovascular: Yes: Regular Rate and Rhythm Respiratory: Yes: Regular, Diminished, Other (Right chest tube in place) Gastrointestinal: Yes: Normal Bowel Sounds, Soft Edema: No Labs: CBC, BMP 04/16/18 08:00 04/16/18 08:00 INR, PTT INR 1.57 (0.83-1.09) H 04/18/18 06:12 Problem List - Problems (1) Incarcerated hernia Code(s): K46.0 - UNSP ABDOMINAL HERNIA WITH OBSTRUCTION, WITHOUT GANGRENE (2) Acute on chronic renal failure Code(s): N17.9 - ACUTE KIDNEY FAILURE, UNSPECIFIED; N18.9 - CHRONIC KIDNEY DISEASE, UNSPECIFIED Qualifiers: Chronic kidney disease stage: stage 3 (moderate) (3) Afib Code(s): I48.91 - UNSPECIFIED ATRIAL FIBRILLATION Qualifiers: Atrial fibrillation type: persistent Qualified Code(s): I48.1 - Persistent atrial fibrillation (4) Anemia Code(s): D64.9 - ANEMIA, UNSPECIFIED Qualifiers: Anemia type: unspecified type Qualified Code(s): D64.9 - Anemia, unspecified (5) Anticoagulated on Coumadin Code(s): Z79.01 - [facility] (CURRENT) USE OF ANTICOAGULANTS (6) Coronary artery disease Code(s): I25.10 - ATHSCL HEART DISEASE OF [place] CORONARY ARTERY W/O ANG PCTRS Qualifiers: Coronary Disease-Associated Artery/Lesion type: [place] artery [place] vs. transplanted heart: [place] heart Associated angina: without angina Qualified Code(s): I25.10 - Atherosclerotic heart disease of [place] coronary artery without angina pectoris (7) HTN (hypertension) Code(s): I10 - ESSENTIAL (PRIMARY) HYPERTENSION Qualifiers: Hypertension type: essential hypertension Qualified Code(s): I10 - Essential (primary) hypertension (8) Hyperlipidemia Code(s): E78.5 - HYPERLIPIDEMIA, UNSPECIFIED Qualifiers: Hyperlipidemia type: pure hypercholesterolemia Qualified Code(s): E78.00 - Pure hypercholesterolemia, unspecified; E78.0 - Pure hypercholesterolemia (9) Pacemaker Code(s): Z95.0 - PRESENCE OF CARDIAC PACEMAKER (10) Pleural effusion, right Code(s): J90 - PLEURAL EFFUSION, NOT ELSEWHERE CLASSIFIED (11) Pulmonary hypertension Code(s): I27.2 - OTHER SECONDARY PULMONARY HYPERTENSION * DO NOT USE * (12) Sick sinus syndrome Code(s): I49.5 - SICK SINUS SYNDROME (13) Status post coronary artery stent placement Code(s): Z95.5 - PRESENCE OF CORONARY ANGIOPLASTY IMPLANT AND GRAFT (14) Systolic and diastolic CHF, acute on chronic Code(s): I50.43 - ACUTE ON CHRONIC COMBINED SYSTOLIC AND DIASTOLIC HRT FAIL (15) Type 2 diabetes mellitus Code(s): E11.9 - TYPE 2 DIABETES MELLITUS WITHOUT COMPLICATIONS Qualifiers: Diabetes mellitus complication status: with kidney complications Diabetes mellitus complication detail: with chronic kidney disease Chronic kidney disease stage: stage 3 (moderate) Assessment/Plan 02/09/2018 Echo: Normal LV size with severely decreased LV fxn, severe TR, severe pulm HTN, pacer in RV 1. Incarcerated spigelian hernia without strangulation, for conservative management 2. Right pleural effusion with underlying history of breast carcinoma post mastectomy post chemotherapy, s/p pigtail catheter placement and chest tube 3. 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 CAD post PCI/stent angina pectoris 5. Persistent/chronic atrial fibrillation on anticoagulation, [id number] score of 6 with subtherapeutic INR 6. AV block post PPM 7. Mitral valve and tricuspid valve regurgitation 8. HTN/HCVD 9. DM 10. Hypercholesterolemia 11. Acute on CKD with proteinuria and hyperkalemia resolving PLAN: 1. Coumadin held pending Pleur-X insertion 2. Continue Carvedilol 12.5 mg BID as tolerated (BP permitting) 3. Entresto 24/26 mg BID and monitor renal function and electrolytes 4. Chest tube management, bronchodilator and O2 as needed, IR for Pleur-X insertion
[2018-04-18] MEDS: CARVEDILOL 12.5 MG TABLET (FP) PO SCH ×2 (11:37→23:56)
[2018-04-18] MEDS: SACUBITRIL/VALSARTAN 24 MG-26 MG TABLET PO SCH ×2 (11:38→22:24)
[2018-04-18] MEDS: POLYETHYLENE GLYCOL 3350 119 GM BTL PO SCH ×2 (11:38→22:24)
--- NOTE | 2018-04-18 12:30 | PN ---
Progress Note (short form) - Note Progress Note: PULMONARY Denies shortness of breath. For pleur-x placement today. Vital Signs Period Temp Pulse Resp BP Sys/[place]oria Pulse Ox Last 24 Hr 97.8 F-98.2 F 75-90 20-20 90-112/55-58 96 Gen: NAD at rest Heart: RRR Lung: decreased breath sounds right base Abd: soft, nontender Ext: no edema Chest tube: serous fluid, no air leak CBC, BMP 04/16/18 08:00 04/16/18 08:00 Active Medications Acetaminophen (Tylenol -) 650 mg PO Q6H PRN PRN Reason: MODERATE PAIN Last Admin: 04/06/18 10:50 Dose: 650 mg Carvedilol (Coreg -) 12.5 mg PO BID [facility] Last Admin: 04/18/18 11:37 Dose: Not Given Dextrose (Glucose Tablet -) 4 gm PO ONCE PRN PRN Reason: BG < 60mg/dl Last Admin: 04/15/18 01:20 Dose: 4 gm Guaifenesin (Robitussin -) 10 ml PO Q6H PRN PRN Reason: COUGH Last Admin: 04/02/18 22:15 Dose: 10 ml Mirtazapine (Remeron -) 7.5 mg PO HS [facility] Last Admin: 04/17/18 21:30 Dose: 7.5 mg Nystatin ([facility]op Powder -) [facility] Last Admin: 04/18/18 07:14 Dose: Not Given Pantoprazole Sodium (Protonix -) 40 mg PO DAILY [facility] Last Admin: 04/17/18 10:17 Dose: 40 mg Polyethylene Glycol (Miralax (For Daily Use) -) 17 gm PO BID [facility] Last Admin: 04/18/18 11:38 Dose: Not Given Sacubitril/Valsartan (Entresto 24 Mg-26 Mg Tablet) 1 tab PO BID [facility] Last Admin: 04/18/18 11:38 Dose: Not Given Senna (Senna -) 2 tab PO HS PRN PRN Reason: CONSTIPATION Last Admin: 04/07/18 00:08 Dose: 2 tab Sertraline HCl (Zoloft -) 25 mg PO DAILY [facility] Last Admin: 04/17/18 10:17 Dose: 25 mg Tamsulosin HCl (Flomax -) 0.4 mg PO DAILY@0830 [facility] Last Admin: 04/17/18 08:30 Dose: 0.4 mg A/P Incarcerated Hernia Right Pleural Effusion s/p pigtail catheter placement h/o Breast Ca Acute on Chronic Renal Failure LV Systolic Dysfunction CAD Atrial Fibrillation/AV block s/p PPM Mitral Regurgitation HTN DM - for pleur-x placement - monitor chest tube output - inhaled bronchodilators - O2 to keep SpO2 >90% - rate controlled
--- NOTE | 2018-04-18 13:21 | PN ---
Progress Note (short form) - Note Progress Note: pt seen/ examined chart reviewed for pleural x placement today comfortable Vital Signs Temp 97.8 F 04/18/18 06:00 Pulse 88 04/18/18 10:00 Resp 16 04/18/18 10:00 BP 112/58 L 04/18/18 10:00 Pulse Ox 96 04/17/18 21:00 Intake & Output 04/17/18 04/18/18 04/18/18 23:59 11:59 23:59 Intake Total 1275 100 Output Total 650 240 Balance 625 -140 Intake: Oral 1275 100 Output: Chest Tube Drainage 40 Right Mediastinal 40 Urine 650 200 Void 650 200 Other: Voiding Method Urinal # Unmeasured Voids Void 5 Bowel Movement No Active Medications Acetaminophen (Tylenol -) 650 mg PO Q6H PRN PRN Reason: MODERATE PAIN Last Admin: 04/06/18 10:50 Dose: 650 mg Carvedilol (Coreg -) 12.5 mg PO BID [facility] Last Admin: 04/18/18 11:37 Dose: Not Given Dextrose (Glucose Tablet -) 4 gm PO ONCE PRN PRN Reason: BG < 60mg/dl Last Admin: 04/15/18 01:20 Dose: 4 gm Guaifenesin (Robitussin -) 10 ml PO Q6H PRN PRN Reason: COUGH Last Admin: 04/02/18 22:15 Dose: 10 ml Mirtazapine (Remeron -) 7.5 mg PO HS [facility] Last Admin: 04/17/18 21:30 Dose: 7.5 mg Nystatin ([facility]op Powder -) [facility] Last Admin: 04/18/18 07:14 Dose: Not Given Pantoprazole Sodium (Protonix -) 40 mg PO DAILY [facility] Last Admin: 04/17/18 10:17 Dose: 40 mg Polyethylene Glycol (Miralax (For Daily Use) -) 17 gm PO BID [facility] Last Admin: 04/18/18 11:38 Dose: Not Given Sacubitril/Valsartan (Entresto 24 Mg-26 Mg Tablet) 1 tab PO BID [facility] Last Admin: 04/18/18 11:38 Dose: Not Given Senna (Senna -) 2 tab PO HS PRN PRN Reason: CONSTIPATION Last Admin: 04/07/18 00:08 Dose: 2 tab Sertraline HCl (Zoloft -) 25 mg PO DAILY [facility] Last Admin: 04/17/18 10:17 Dose: 25 mg Tamsulosin HCl (Flomax -) 0.4 mg PO DAILY@0830 [facility] Last Admin: 04/17/18 08:30 Dose: 0.4 mg CBC, BMP 04/16/18 08:00 04/16/18 08:00 INR, PTT INR 1.57 (0.83-1.09) H 04/18/18 06:12 ct chest reviewed Physical Examination Constitutional: Yes: No Distress, comfortable Cardiovascular: Yes: Regular Rate and Rhythm Respiratory: Yes: Diminished - chest tube Gastrointestinal: Yes: soft/ hernia + bs present, NT Edema: No Neuro- a0x3 a/p stable for Pleural -X catheter today continue with meds-- coumadin on hold will follow Problem List - Problems (1) Incarcerated hernia Code(s): K46.0 - UNSP ABDOMINAL HERNIA WITH OBSTRUCTION, WITHOUT GANGRENE (2) Abnormal INR Code(s): R79.1 - ABNORMAL COAGULATION PROFILE (3) Afib Code(s): I48.91 - UNSPECIFIED ATRIAL FIBRILLATION Qualifiers: Atrial fibrillation type: persistent Qualified Code(s): I48.1 - Persistent atrial fibrillation (4) Anticoagulated on Coumadin Code(s): Z79.01 - JAIL (CURRENT) USE OF ANTICOAGULANTS (5) Ascites Code(s): R18.8 - OTHER ASCITES Qualifiers: Ascites type: other type Qualified Code(s): R18.8 - Other ascites (6) Breast cancer in male Code(s): C50.929 - MALIGNANT NEOPLASM OF UNSP SITE OF UNSPECIFIED MALE BREAST (7) Chronic kidney disease (CKD) Code(s): N18.9 - CHRONIC KIDNEY DISEASE, UNSPECIFIED Qualifiers: Chronic kidney disease stage: unspecified stage Qualified Code(s): N18.9 - Chronic kidney disease, unspecified (8) Coronary artery disease Code(s): I25.10 - ATHSCL HEART DISEASE OF [place] CORONARY ARTERY W/O ANG PCTRS Qualifiers: Coronary Disease-Associated Artery/Lesion type: [place] artery [place] vs. transplanted heart: [place] heart Associated angina: without angina Qualified Code(s): I25.10 - Atherosclerotic heart disease of [place] coronary artery without angina pectoris (9) Pacemaker Code(s): Z95.0 - PRESENCE OF CARDIAC PACEMAKER (10) Pleural effusion Code(s): J90 - PLEURAL EFFUSION, NOT ELSEWHERE CLASSIFIED
[2018-04-18] MEDS: SERTRALINE HCL 25 MG TABLET (FP) PO SCH (16:27)
[2018-04-18] MEDS: PANTOPRAZOLE 40 MG TABLET (FP) PO SCH (16:27)
[2018-04-18] MEDS: MIRTAZAPINE 15 MG TABLET (FP) PO SCH (22:25)
[2018-04-19] MEDS: NYSTATIN POWDER 100,000 UNITS/GM - 15 GM TOPICAL POWDER TP SCH ×3 (06:56→22:04)
--- NOTE | 2018-04-19 11:09 | PN ---
Progress Note (short form) - Note Progress Note: PULMONARY Denies shortness of breath. For pleur-x placement today. Chest tube draining serous fluid. Vital Signs Period Temp Pulse Resp BP Sys/Soria Pulse Ox Last 24 Hr 97.8 F-98.2 F 72-92 20-22 98-154/54-60 96 Gen: NAD at rest Heart: RRR Lung: decreased breath sounds right base Abd: soft, nontender Ext: no edema Chest tube: serous fluid, no air leak CBC, BMP 04/16/18 08:00 Active Medications Acetaminophen (Tylenol -) 650 mg PO Q6H PRN PRN Reason: MODERATE PAIN Last Admin: 04/06/18 10:50 Dose: 650 mg Carvedilol (Coreg -) 12.5 mg PO BID [facility] Last Admin: 04/18/18 23:56 Dose: Not Given Dextrose (Glucose Tablet -) 4 gm PO ONCE PRN PRN Reason: BG < 60mg/dl Last Admin: 04/15/18 01:20 Dose: 4 gm Guaifenesin (Robitussin -) 10 ml PO Q6H PRN PRN Reason: COUGH Last Admin: 04/02/18 22:15 Dose: 10 ml Mirtazapine (Remeron -) 7.5 mg PO HS [facility] Last Admin: 04/18/18 22:25 Dose: 7.5 mg Nystatin (Nystop Powder -) 1 applic TP QSHIFT [facility] Last Admin: 04/19/18 06:56 Dose: 1 applic Pantoprazole Sodium (Protonix -) 40 mg PO DAILY [facility] Last Admin: 04/18/18 16:27 Dose: 40 mg Polyethylene Glycol (Miralax (For Daily Use) -) 17 gm PO BID [facility] Last Admin: 04/18/18 22:24 Dose: Not Given Sacubitril/Valsartan (Entresto 24 Mg-26 Mg Tablet) 1 tab PO BID [facility] Last Admin: 04/18/18 22:24 Dose: Not Given Senna (Senna -) 2 tab PO HS PRN PRN Reason: CONSTIPATION Last Admin: 04/07/18 00:08 Dose: 2 tab Sertraline HCl (Zoloft -) 25 mg PO DAILY [facility] Last Admin: 04/18/18 16:27 Dose: 25 mg Tamsulosin HCl (Flomax -) 0.4 mg PO DAILY@0830 [facility] Last Admin: 04/18/18 11:00 Dose: Not Given A/P Right Pleural Effusion s/p pigtail catheter placement h/o Breast Ca Acute on Chronic Renal Failure LV Systolic Dysfunction CAD Atrial Fibrillation/AV block s/p PPM Mitral Regurgitation HTN DM - for pleur-x placement - monitor chest tube output - inhaled bronchodilators - O2 to keep SpO2 >90% - rate controlled
[2018-04-19 11:28] LABS: ANION GAP 4 MMOL/L (8-16); BLOOD UREA NITROGEN 60 mg/dL (7-18); CALCIUM 9.3 mg/dL (8.5-10.1); CHLORIDE 109 mmol/L (98-107); CO2 26 mmol/L (21-32); CREATININE 1.8 mg/dL (0.55-1.3); GLUCOSE,RANDOM 158 mg/dL (74-106); POTASSIUM 5.5 mmol/L (3.5-5.1); SODIUM 139 mmol/L (136-145)
[2018-04-19] MEDS: CARVEDILOL 12.5 MG TABLET (FP) PO SCH ×2 (11:34→22:03)
[2018-04-19] MEDS: TAMSULOSIN HCL 0.4 MG CAP PO SCH (11:34)
[2018-04-19] MEDS: PANTOPRAZOLE 40 MG TABLET (FP) PO SCH (11:34)
[2018-04-19] MEDS: SERTRALINE HCL 25 MG TABLET (FP) PO SCH (11:34)
[2018-04-19] MEDS: SACUBITRIL/VALSARTAN 24 MG-26 MG TABLET PO SCH ×2 (11:34→22:03)
[2018-04-19] MEDS: POLYETHYLENE GLYCOL 3350 119 GM BTL PO SCH ×3 (11:35→22:04)
[2018-04-19] MEDS ORDERED: SODIUM POLYSTYRENE SULFONATE 15 GM/60 ML BOTTLE PO ONE (11:40)
--- NOTE | 2018-04-19 12:04 | PN ---
Progress Note (short form) - Note Progress Note: no distress chest tube - s/p replacement Ct chest noted-- effusion is large BP better pt is awake no complaints about 20cc out put from chest tube Vital Signs - 24 hr 04/18/18 04/18/18 04/18/18 16:25 18:34 21:00 Temperature 97.8 F 98.2 F Pulse Rate 92 H 76 Respiratory 22 H 22 H 22 H Rate Blood Pressure 154/56 L 123/56 L O2 Sat by Pulse 96 Oximetry (%) 04/18/18 04/19/18 22:00 06:00 Temperature 98.2 F Pulse Rate 72 76 Respiratory 20 20 Rate Blood Pressure 98/60 121/54 L O2 Sat by Pulse Oximetry (%) Current Medications Generic Name Dose Route Start Last Admin Trade Name Freq PRN Reason Stop Dose Admin Acetaminophen 650 mg 03/31/18 10:44 04/06/18 10:50 Tylenol - PO 650 mg Q6H PRN Administration MODERATE PAIN Carvedilol 12.5 mg 04/17/18 09:36 04/19/18 11:34 Coreg - PO 12.5 mg BID [facility] Administration Dextrose 4 gm 03/19/18 23:22 04/15/18 01:20 Glucose Tablet - PO 4 gm ONCE PRN Administration BG < 60mg/dl Guaifenesin 10 ml 03/18/18 18:32 04/02/18 22:15 Robitussin - PO 10 ml Q6H PRN Administration COUGH Mirtazapine 7.5 mg 04/06/18 22:00 04/18/18 22:25 Remeron - PO 7.5 mg HS [facility] Administration Nystatin 1 applic 03/28/18 14:00 04/19/18 06:56 Nystop Powder - TP 1 applic QSHIFT [facility] Administration Pantoprazole Sodium 40 mg 03/20/18 10:00 04/19/18 11:34 Protonix - PO 40 mg DAILY [facility] Administration Polyethylene Glycol 17 gm 03/23/18 11:30 04/19/18 11:39 Miralax (For Daily Use) - PO Not Given BID [facility] Sacubitril/Valsartan 1 tab 04/13/18 12:45 04/19/18 11:34 Entresto 24 Mg-26 Mg Tablet PO 1 tab BID [facility] Administration Senna 2 tab 03/23/18 11:16 04/07/18 00:08 Senna - PO 2 tab HS PRN Administration CONSTIPATION Sertraline HCl 25 mg 04/07/18 10:00 04/19/18 11:34 Zoloft - PO 25 mg DAILY [facility] Administration Tamsulosin HCl 0.4 mg 03/20/18 08:30 04/19/18 11:34 Flomax - PO 0.4 mg DAILY@0830 [facility] Administration Laboratory Results - last 24 hr 04/18/18 04/19/18 04/19/18 16:26 06:16 10:50 Sodium 139 Potassium 5.5 H Chloride 109 H Carbon Dioxide 26 Anion Gap 4 L BUN 60 H Creatinine 1.8 H Creat Clearance w eGFR 36.39 POC Glucometer 88 81 Random Glucose 158 H Calcium 9.3 Physical Examination Constitutional: Yes: No Distress, comfortable Cardiovascular: Yes: Regular Rate and Rhythm Respiratory: Yes: Diminished - chest tube Gastrointestinal: Yes: soft/ hernia + bs present, NT Edema: No Neuro- a0x3 a/p stable not SOB no JVD nebs prn hold Coumadin in anticipation for Pleurx catheter placement-- daughter in agreement now will be done tomorrow as potassium elevated-- Kayexalate given - recheck potassium tonight monitor for hypoglycemia continue with meds Problem List - Problems (1) Incarcerated hernia Code(s): K46.0 - UNSP ABDOMINAL HERNIA WITH OBSTRUCTION, WITHOUT GANGRENE (2) Abnormal INR Code(s): R79.1 - ABNORMAL COAGULATION PROFILE (3) Afib Code(s): I48.91 - UNSPECIFIED ATRIAL FIBRILLATION Qualifiers: Atrial fibrillation type: persistent Qualified Code(s): I48.1 - Persistent atrial fibrillation (4) Anemia Code(s): D64.9 - ANEMIA, UNSPECIFIED Qualifiers: Anemia type: unspecified type Qualified Code(s): D64.9 - Anemia, unspecified (5) Anticoagulated on Coumadin Code(s): Z79.01 - SENIOR CARE (CURRENT) USE OF ANTICOAGULANTS (6) Breast cancer in male Code(s): C50.929 - MALIGNANT NEOPLASM OF UNSP SITE OF UNSPECIFIED MALE BREAST (7) Chronic kidney disease (CKD) Code(s): N18.9 - CHRONIC KIDNEY DISEASE, UNSPECIFIED Qualifiers: Chronic kidney disease stage: unspecified stage Qualified Code(s): N18.9 - Chronic kidney disease, unspecified
--- NOTE | 2018-04-19 14:09 | PN ---
Progress Note, Physician Chief Complaint: Events noted No chest pain or SOB History of Present Illness: Patient was seen and examined. Chart was reviewed Generalized weakness - Current Medication List Current Medications: Active Medications Acetaminophen (Tylenol -) 650 mg PO Q6H PRN PRN Reason: MODERATE PAIN Last Admin: 04/06/18 10:50 Dose: 650 mg Carvedilol (Coreg -) 12.5 mg PO BID [facility] Last Admin: 04/19/18 11:34 Dose: 12.5 mg Dextrose (Glucose Tablet -) 4 gm PO ONCE PRN PRN Reason: BG < 60mg/dl Last Admin: 04/15/18 01:20 Dose: 4 gm Guaifenesin (Robitussin -) 10 ml PO Q6H PRN PRN Reason: COUGH Last Admin: 04/02/18 22:15 Dose: 10 ml Mirtazapine (Remeron -) 7.5 mg PO HS [facility] Last Admin: 04/18/18 22:25 Dose: 7.5 mg Nystatin (Nystop Powder -) 1 applic TP QSHIFT [facility] Last Admin: 04/19/18 06:56 Dose: 1 applic Pantoprazole Sodium (Protonix -) 40 mg PO DAILY [facility] Last Admin: 04/19/18 11:34 Dose: 40 mg Polyethylene Glycol (Miralax (For Daily Use) -) 17 gm PO BID [facility] Last Admin: 04/19/18 11:39 Dose: Not Given Sacubitril/Valsartan (Entresto 24 Mg-26 Mg Tablet) 1 tab PO BID [facility] Last Admin: 04/19/18 11:34 Dose: 1 tab Senna (Senna -) 2 tab PO HS PRN PRN Reason: CONSTIPATION Last Admin: 04/07/18 00:08 Dose: 2 tab Sertraline HCl (Zoloft -) 25 mg PO DAILY [facility] Last Admin: 04/19/18 11:34 Dose: 25 mg Tamsulosin HCl (Flomax -) 0.4 mg PO DAILY@0830 [facility] Last Admin: 04/19/18 11:34 Dose: 0.4 mg - Objective Vital Signs: Vital Signs Temperature 97.9 F 04/19/18 14:04 Pulse Rate 75 04/19/18 14:04 Respiratory Rate 20 04/19/18 14:04 Blood Pressure 98/53 L 04/19/18 14:04 O2 Sat by Pulse Oximetry (%) 96 04/18/18 21:00 HENT: Yes: Atraumatic Neck: Yes: Supple Cardiovascular: Yes: Regular Rate and Rhythm, S1, S2 Respiratory: Yes: Diminished Gastrointestinal: Yes: Normal Bowel Sounds, Soft. No: Tenderness Edema: No Labs: CBC, BMP 04/19/18 10:50 INR, PTT INR 1.57 (0.83-1.09) H 04/18/18 06:12 Problem List - Problems (1) Incarcerated hernia Code(s): K46.0 - UNSP ABDOMINAL HERNIA WITH OBSTRUCTION, WITHOUT GANGRENE (2) Acute on chronic congestive heart failure Code(s): I50.9 - HEART FAILURE, UNSPECIFIED (3) Acute on chronic renal failure Code(s): N17.9 - ACUTE KIDNEY FAILURE, UNSPECIFIED; N18.9 - CHRONIC KIDNEY DISEASE, UNSPECIFIED Qualifiers: Chronic kidney disease stage: stage 3 (moderate) (4) Afib Code(s): I48.91 - UNSPECIFIED ATRIAL FIBRILLATION Qualifiers: Atrial fibrillation type: persistent Qualified Code(s): I48.1 - Persistent atrial fibrillation (5) Anemia Code(s): D64.9 - ANEMIA, UNSPECIFIED Qualifiers: Anemia type: unspecified type Qualified Code(s): D64.9 - Anemia, unspecified (6) Anticoagulated on Coumadin Code(s): Z79.01 - HALF-WAY (CURRENT) USE OF ANTICOAGULANTS (7) Chronic kidney disease (CKD) Code(s): N18.9 - CHRONIC KIDNEY DISEASE, UNSPECIFIED Qualifiers: Chronic kidney disease stage: unspecified stage Qualified Code(s): N18.9 - Chronic kidney disease, unspecified (8) Coronary artery disease Code(s): I25.10 - ATHSCL HEART DISEASE OF [place] CORONARY ARTERY W/O ANG PCTRS Qualifiers: Coronary Disease-Associated Artery/Lesion type: [place] artery [place] vs. transplanted heart: [place] heart Associated angina: without angina Qualified Code(s): I25.10 - Atherosclerotic heart disease of [place] coronary artery without angina pectoris (9) HTN (hypertension) Code(s): I10 - ESSENTIAL (PRIMARY) HYPERTENSION Qualifiers: Hypertension type: essential hypertension Qualified Code(s): I10 - Essential (primary) hypertension (10) Hyperlipidemia Code(s): E78.5 - HYPERLIPIDEMIA, UNSPECIFIED Qualifiers: Hyperlipidemia type: pure hypercholesterolemia Qualified Code(s): E78.00 - Pure hypercholesterolemia, unspecified; E78.0 - Pure hypercholesterolemia (11) Pacemaker Code(s): Z95.0 - PRESENCE OF CARDIAC PACEMAKER (12) Pleural effusion Code(s): J90 - PLEURAL EFFUSION, NOT ELSEWHERE CLASSIFIED (13) Pulmonary hypertension Code(s): I27.2 - OTHER SECONDARY PULMONARY HYPERTENSION * DO NOT USE * (14) Sick sinus syndrome Code(s): I49.5 - SICK SINUS SYNDROME (15) Status post coronary artery stent placement Code(s): Z95.5 - PRESENCE OF CORONARY ANGIOPLASTY IMPLANT AND GRAFT (16) Supratherapeutic INR Code(s): R79.1 - ABNORMAL COAGULATION PROFILE (17) Systolic and diastolic CHF, acute on chronic Code(s): I50.43 - ACUTE ON CHRONIC COMBINED SYSTOLIC AND DIASTOLIC HRT FAIL (18) Type 2 diabetes mellitus Code(s): E11.9 - TYPE 2 DIABETES MELLITUS WITHOUT COMPLICATIONS Qualifiers: Diabetes mellitus complication status: with kidney complications Diabetes mellitus complication detail: with chronic kidney disease Chronic kidney disease stage: stage 3 (moderate) Assessment/Plan 1. Incarcerated spigelian hernia without strangulation for conservative management 2. Right pleural effusion with underlying history of breast carcinoma post mastectomy post chemotherapy, s/p pigtail catheter placement and chest tube 3. 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 CAD post PCI/stent angina pectoris 5. Persistent/chronic atrial fibrillation on anticoagulation, [id number] score of 6 6. AV block post PPM 7. Mitral valve and tricuspid valve regurgitation 8. HTN/HCVD 9. DM 10. Hypercholesterolemia 11. Acute on CKD with proteinuria and hyperkalemia resolving PLAN: 1. Coumadin held pending Pleur-X insertion 2. Continue Carvedilol 12.5 mg BID as tolerated (BP permitting) 3. Entresto 24/26 mg BID and monitor renal function and electrolytes 4. Chest tube management, bronchodilator and O2 as needed and IR for Pleur-X insertion Further plans are to follow Chente Gasca MD
[2018-04-19 21:21] LABS: ANION GAP 6 MMOL/L (8-16); BLOOD UREA NITROGEN 58 mg/dL (7-18); CALCIUM 9.6 mg/dL (8.5-10.1); CHLORIDE 109 mmol/L (98-107); CO2 27 mmol/L (21-32); CREATININE 1.9 mg/dL (0.55-1.3); GLUCOSE,RANDOM 115 mg/dL (74-106); POTASSIUM 5.3 mmol/L (3.5-5.1); SODIUM 142 mmol/L (136-145)
[2018-04-19] MEDS: MIRTAZAPINE 15 MG TABLET (FP) PO SCH (22:04)
[2018-04-20] MEDS: NYSTATIN POWDER 100,000 UNITS/GM - 15 GM TOPICAL POWDER TP SCH ×3 (06:50→21:46)
[2018-04-20 06:51] LABS: INR 1.35 (0.83-1.09)
[2018-04-20 07:14] LABS: ANION GAP 3 MMOL/L (8-16); BLOOD UREA NITROGEN 57 mg/dL (7-18); CALCIUM 9.1 mg/dL (8.5-10.1); CHLORIDE 108 mmol/L (98-107); CO2 29 mmol/L (21-32); CREATININE 1.8 mg/dL (0.55-1.3); GLUCOSE,RANDOM 91 mg/dL (74-106); SODIUM 139 mmol/L (136-145)
[2018-04-20] MEDS: TAMSULOSIN HCL 0.4 MG CAP PO SCH (08:57)
--- NOTE | 2018-04-20 10:23 | PN ---
Progress Note (short form) - Note Progress Note: no distress chest tube - s/p replacement Ct chest noted-- effusion is large BP better pt is awake no complaints Vital Signs - 24 hr 04/19/18 04/19/18 04/19/18 14:04 18:30 21:00 Temperature 97.9 F 97.8 F Pulse Rate 75 75 Respiratory 20 20 20 Rate Blood Pressure 98/53 L 96/44 L O2 Sat by Pulse 100 Oximetry (%) 04/19/18 04/20/18 04/20/18 22:00 06:00 10:03 Temperature Pulse Rate 87 87 66 Respiratory 20 20 20 Rate Blood Pressure 125/72 125/72 91/52 L O2 Sat by Pulse Oximetry (%) Current Medications Generic Name Dose Route Start Last Admin Trade Name Freq PRN Reason Stop Dose Admin Acetaminophen 650 mg 03/31/18 10:44 04/06/18 10:50 Tylenol - PO 650 mg Q6H PRN Administration MODERATE PAIN Carvedilol 12.5 mg 04/17/18 09:36 04/19/18 22:03 Coreg - PO 12.5 mg BID [facility] Administration Dextrose 4 gm 03/19/18 23:22 04/15/18 01:20 Glucose Tablet - PO 4 gm ONCE PRN Administration BG < 60mg/dl Guaifenesin 10 ml 03/18/18 18:32 04/02/18 22:15 Robitussin - PO 10 ml Q6H PRN Administration COUGH Mirtazapine 7.5 mg 04/06/18 22:00 04/19/18 22:04 Remeron - PO 7.5 mg HS [facility] Administration Nystatin 1 applic 03/28/18 14:00 04/20/18 06:50 Nystop Powder - TP 1 applic QSHIFT [facility] Administration Pantoprazole Sodium 40 mg 03/20/18 10:00 04/19/18 11:34 Protonix - PO 40 mg DAILY [facility] Administration Polyethylene Glycol 17 gm 03/23/18 11:30 04/19/18 22:04 Miralax (For Daily Use) - PO Not Given BID [facility] Sacubitril/Valsartan 1 tab 04/13/18 12:45 04/19/18 22:03 Entresto 24 Mg-26 Mg Tablet PO 1 tab BID [facility] Administration Senna 2 tab 03/23/18 11:16 04/07/18 00:08 Senna - PO 2 tab HS PRN Administration CONSTIPATION Sertraline HCl 25 mg 04/07/18 10:00 04/19/18 11:34 Zoloft - PO 25 mg DAILY [facility] Administration Tamsulosin HCl 0.4 mg 03/20/18 08:30 04/20/18 08:57 Flomax - PO 0.4 mg DAILY@0830 [facility] Administration Laboratory Results - last 24 hr 04/19/18 04/19/18 04/19/18 10:50 16:28 20:05 PT with INR INR Sodium 139 142 Potassium 5.5 H 5.3 H Chloride 109 H 109 H Carbon Dioxide 26 27 Anion Gap 4 L 6 L BUN 60 H 58 H Creatinine 1.8 H 1.9 H Creat Clearance w eGFR 36.39 34.19 POC Glucometer 125 Random Glucose 158 H 115 H Calcium 9.3 9.6 04/20/18 04/20/18 04/20/18 05:46 06:00 06:00 PT with INR 16.00 H INR 1.35 H Sodium 139 Potassium 5.0 Chloride 108 H Carbon Dioxide 29 Anion Gap 3 L BUN 57 H Creatinine 1.8 H Creat Clearance w eGFR 36.39 POC Glucometer 89 Random Glucose 91 Calcium 9.1 Physical Examination Constitutional: Yes: No Distress, comfortable Cardiovascular: Yes: Regular Rate and Rhythm Respiratory: Yes: Diminished - chest tube Gastrointestinal: Yes: soft/ hernia + bs present, NT Edema: No Neuro- a0x3 a/p stable not SOB no JVD nebs prn hold Coumadin in anticipation for Pleurx catheter placement-- daughter in agreement now potassium not elevated ok for pleurx placement daughter now wants pt to be transferred to SNF afterwards-- spoke with case aide monitor for hypoglycemia continue with meds Problem List - Problems (1) Incarcerated hernia Code(s): K46.0 - UNSP ABDOMINAL HERNIA WITH OBSTRUCTION, WITHOUT GANGRENE (2) Abnormal INR Code(s): R79.1 - ABNORMAL COAGULATION PROFILE (3) Afib Code(s): I48.91 - UNSPECIFIED ATRIAL FIBRILLATION Qualifiers: Atrial fibrillation type: persistent Qualified Code(s): I48.1 - Persistent atrial fibrillation (4) Anemia Code(s): D64.9 - ANEMIA, UNSPECIFIED Qualifiers: Anemia type: unspecified type Qualified Code(s): D64.9 - Anemia, unspecified (5) Anticoagulated on Coumadin Code(s): Z79.01 - INSURANCE SALES PRODUCER (CURRENT) USE OF ANTICOAGULANTS (6) Breast cancer in male Code(s): C50.929 - MALIGNANT NEOPLASM OF UNSP SITE OF UNSPECIFIED MALE BREAST (7) Chronic kidney disease (CKD) Code(s): N18.9 - CHRONIC KIDNEY DISEASE, UNSPECIFIED Qualifiers: Chronic kidney disease stage: unspecified stage Qualified Code(s): N18.9 - Chronic kidney disease, unspecified
[2018-04-20] MEDS ORDERED: PT OWN MED DRAWER 7, Y5N ONE (10:25)
[2018-04-20] MEDS: SACUBITRIL/VALSARTAN 24 MG-26 MG TABLET PO SCH ×2 (10:26→21:45)
[2018-04-20] MEDS: POLYETHYLENE GLYCOL 3350 119 GM BTL PO SCH ×2 (10:26→21:46)
[2018-04-20] MEDS: CARVEDILOL 12.5 MG TABLET (FP) PO SCH ×2 (10:26→21:45)
[2018-04-20] MEDS: SERTRALINE HCL 25 MG TABLET (FP) PO SCH (10:27)
[2018-04-20] MEDS: PANTOPRAZOLE 40 MG TABLET (FP) PO SCH (10:28)
--- NOTE | 2018-04-20 14:18 | PN ---
Progress Note, Physician History of Present Illness: pulmonary alert,no distress on nasal o2. min chest tube drainage 5cc - Current Medication List Current Medications: Active Medications Acetaminophen (Tylenol -) 650 mg PO Q6H PRN PRN Reason: MODERATE PAIN Last Admin: 04/06/18 10:50 Dose: 650 mg Carvedilol (Coreg -) 12.5 mg PO BID [facility] Last Admin: 04/20/18 10:26 Dose: Not Given Dextrose (Glucose Tablet -) 4 gm PO ONCE PRN PRN Reason: BG < 60mg/dl Last Admin: 04/15/18 01:20 Dose: 4 gm Guaifenesin (Robitussin -) 10 ml PO Q6H PRN PRN Reason: COUGH Last Admin: 04/02/18 22:15 Dose: 10 ml Mirtazapine (Remeron -) 7.5 mg PO HS [facility] Last Admin: 04/19/18 22:04 Dose: 7.5 mg Nystatin (Nystop Powder -) 1 applic TP QSHIFT [facility] Last Admin: 04/20/18 06:50 Dose: 1 applic Pantoprazole Sodium (Protonix -) 40 mg PO DAILY [facility] Last Admin: 04/20/18 10:28 Dose: 40 mg Polyethylene Glycol (Miralax (For Daily Use) -) 17 gm PO BID [facility] Last Admin: 04/20/18 10:26 Dose: Not Given Sacubitril/Valsartan (Entresto 24 Mg-26 Mg Tablet) 1 tab PO BID [facility] Last Admin: 04/20/18 10:26 Dose: Not Given Senna (Senna -) 2 tab PO HS PRN PRN Reason: CONSTIPATION Last Admin: 04/07/18 00:08 Dose: 2 tab Sertraline HCl (Zoloft -) 25 mg PO DAILY [facility] Last Admin: 04/20/18 10:27 Dose: 25 mg Tamsulosin HCl (Flomax -) 0.4 mg PO DAILY@0830 [facility] Last Admin: 04/20/18 08:57 Dose: 0.4 mg - Objective Vital Signs: Vital Signs Temperature 98.2 F 04/20/18 13:53 Pulse Rate 67 04/20/18 13:53 Respiratory Rate 20 04/20/18 13:53 Blood Pressure 94/46 L 04/20/18 13:53 O2 Sat by Pulse Oximetry (%) 100 04/19/18 21:00 Constitutional: Yes: Calm, Thin Eyes: Yes: WNL HENT: Yes: WNL Neck: Yes: WNL Cardiovascular: Yes: Pulse Irregular, S1, S2 Respiratory: Yes: Diminished Gastrointestinal: Yes: Normal Bowel Sounds, Soft Extremities: Yes: WNL Edema: No Labs: CBC, BMP 04/20/18 06:00 INR, PTT INR 1.35 (0.83-1.09) H 04/20/18 06:00 Assessment/Plan Problem List - Problems (1) Incarcerated hernia Code(s): K46.0 - UNSP ABDOMINAL HERNIA WITH OBSTRUCTION, WITHOUT GANGRENE NOT A SURGICAL CANDIDATE (2) Acute on chronic renal failure Code(s): N17.9 - ACUTE KIDNEY FAILURE, UNSPECIFIED; N18.9 - CHRONIC KIDNEY DISEASE, UNSPECIFIED Qualifiers: Chronic kidney disease stage: stage 3 (moderate) (3) Afib Code(s): I48.91 - UNSPECIFIED ATRIAL FIBRILLATION Qualifiers: Atrial fibrillation type: persistent Qualified Code(s): I48.1 - Persistent atrial fibrillation (4) Anemia Code(s): D64.9 - ANEMIA, UNSPECIFIED Qualifiers: Anemia type: unspecified type Qualified Code(s): D64.9 - Anemia, unspecified (5) Anticoagulated on Coumadin Code(s): Z79.01 - CUSTODIAL (CURRENT) USE OF ANTICOAGULANTS (6) Coronary artery disease Code(s): I25.10 - ATHSCL HEART DISEASE OF [place] CORONARY ARTERY W/O ANG PCTRS Qualifiers: Coronary Disease-Associated Artery/Lesion type: [place] artery [place] vs. transplanted heart: [place] heart Associated angina: without angina Qualified Code(s): I25.10 - Atherosclerotic heart disease of [place] coronary artery without angina pectoris (7) HTN (hypertension) Code(s): I10 - ESSENTIAL (PRIMARY) HYPERTENSION Qualifiers: Hypertension type: essential hypertension Qualified Code(s): I10 - Essential (primary) hypertension (8) Hyperlipidemia Code(s): E78.5 - HYPERLIPIDEMIA, UNSPECIFIED Qualifiers: Hyperlipidemia type: pure hypercholesterolemia Qualified Code(s): E78.00 - Pure hypercholesterolemia, unspecified; E78.0 - Pure hypercholesterolemia (9) Pacemaker Code(s): Z95.0 - PRESENCE OF CARDIAC PACEMAKER (10) Pleural effusion, right Code(s): J90 - PLEURAL EFFUSION, NOT ELSEWHERE CLASSIFIED (11) Pulmonary hypertension Code(s): I27.2 - OTHER SECONDARY PULMONARY HYPERTENSION * DO NOT USE * (12) Sick sinus syndrome Code(s): I49.5 - SICK SINUS SYNDROME (13) Status post coronary artery stent placement Code(s): Z95.5 - PRESENCE OF CORONARY ANGIOPLASTY IMPLANT AND GRAFT (14) Supratherapeutic INR Code(s): R79.1 - ABNORMAL COAGULATION PROFILE (15) Systolic and diastolic CHF, acute on chronic Code(s): I50.43 - ACUTE ON CHRONIC COMBINED SYSTOLIC AND DIASTOLIC HRT FAIL (16) Type 2 diabetes mellitus Code(s): E11.9 - TYPE 2 DIABETES MELLITUS WITHOUT COMPLICATIONS Qualifiers: Diabetes mellitus complication status: with kidney complications Diabetes mellitus complication detail: with chronic kidney disease Chronic kidney disease stage: stage 3 (moderate) A/P Incarcerated Hernia Right Pleural Effusion S/P chest tube h/o Breast Ca Acute on Chronic Renal Failure LV Systolic Dysfunction CAD Atrial Fibrillation/AV block s/p PPM Mitral Regurgitation HTN DM - inhaled bronchodilators - O2 to keep SpO2 >90% - IR for pleur-x catheter insertion DR AKINS
--- NOTE | 2018-04-20 19:09 | PN ---
Progress Note, Physician History of Present Illness: Resting, dyspnea and cough resolved. Right chest tube draining. - Current Medication List Current Medications: Active Medications Acetaminophen (Tylenol -) 650 mg PO Q6H PRN PRN Reason: MODERATE PAIN Last Admin: 04/06/18 10:50 Dose: 650 mg Carvedilol (Coreg -) 12.5 mg PO BID [facility] Last Admin: 04/20/18 10:26 Dose: Not Given Dextrose (Glucose Tablet -) 4 gm PO ONCE PRN PRN Reason: BG < 60mg/dl Last Admin: 04/15/18 01:20 Dose: 4 gm Guaifenesin (Robitussin -) 10 ml PO Q6H PRN PRN Reason: COUGH Last Admin: 04/02/18 22:15 Dose: 10 ml Mirtazapine (Remeron -) 7.5 mg PO HS [facility] Last Admin: 04/19/18 22:04 Dose: 7.5 mg Nystatin (Nystop Powder -) 1 applic TP QSHIFT [facility] Last Admin: 04/20/18 14:56 Dose: 1 applic Pantoprazole Sodium (Protonix -) 40 mg PO DAILY [facility] Last Admin: 04/20/18 10:28 Dose: 40 mg Polyethylene Glycol (Miralax (For Daily Use) -) 17 gm PO BID [facility] Last Admin: 04/20/18 10:26 Dose: Not Given Sacubitril/Valsartan (Entresto 24 Mg-26 Mg Tablet) 1 tab PO BID [facility] Last Admin: 04/20/18 10:26 Dose: Not Given Senna (Senna -) 2 tab PO HS PRN PRN Reason: CONSTIPATION Last Admin: 04/07/18 00:08 Dose: 2 tab Sertraline HCl (Zoloft -) 25 mg PO DAILY [facility] Last Admin: 04/20/18 10:27 Dose: 25 mg Tamsulosin HCl (Flomax -) 0.4 mg PO DAILY@0830 [facility] Last Admin: 04/20/18 08:57 Dose: 0.4 mg - Objective Vital Signs: Vital Signs Temperature 98.2 F 04/20/18 13:53 Pulse Rate 67 04/20/18 13:53 Respiratory Rate 20 04/20/18 13:53 Blood Pressure 94/46 L 04/20/18 13:53 O2 Sat by Pulse Oximetry (%) 100 04/19/18 21:00 Constitutional: Yes: No Distress, Calm, Thin Neck: Yes: Supple Cardiovascular: Yes: Regular Rate and Rhythm Respiratory: Yes: Regular, Diminished Gastrointestinal: Yes: Normal Bowel Sounds, Soft Edema: No Labs: CBC, BMP 04/16/18 08:00 04/20/18 06:00 INR, PTT INR 1.35 (0.83-1.09) H 04/20/18 06:00 Problem List - Problems (1) Incarcerated hernia Code(s): K46.0 - UNSP ABDOMINAL HERNIA WITH OBSTRUCTION, WITHOUT GANGRENE (2) Acute on chronic renal failure Code(s): N17.9 - ACUTE KIDNEY FAILURE, UNSPECIFIED; N18.9 - CHRONIC KIDNEY DISEASE, UNSPECIFIED Qualifiers: Chronic kidney disease stage: stage 3 (moderate) (3) Afib Code(s): I48.91 - UNSPECIFIED ATRIAL FIBRILLATION Qualifiers: Atrial fibrillation type: persistent Qualified Code(s): I48.1 - Persistent atrial fibrillation (4) Anemia Code(s): D64.9 - ANEMIA, UNSPECIFIED Qualifiers: Anemia type: unspecified type Qualified Code(s): D64.9 - Anemia, unspecified (5) Anticoagulated on Coumadin Code(s): Z79.01 - LONG-TERM (CURRENT) USE OF ANTICOAGULANTS (6) Coronary artery disease Code(s): I25.10 - ATHSCL HEART DISEASE OF [place] CORONARY ARTERY W/O ANG PCTRS Qualifiers: Coronary Disease-Associated Artery/Lesion type: [place] artery [place] vs. transplanted heart: [place] heart Associated angina: without angina Qualified Code(s): I25.10 - Atherosclerotic heart disease of [place] coronary artery without angina pectoris (7) HTN (hypertension) Code(s): I10 - ESSENTIAL (PRIMARY) HYPERTENSION Qualifiers: Hypertension type: essential hypertension Qualified Code(s): I10 - Essential (primary) hypertension (8) Hyperlipidemia Code(s): E78.5 - HYPERLIPIDEMIA, UNSPECIFIED Qualifiers: Hyperlipidemia type: pure hypercholesterolemia Qualified Code(s): E78.00 - Pure hypercholesterolemia, unspecified; E78.0 - Pure hypercholesterolemia (9) Pacemaker Code(s): Z95.0 - PRESENCE OF CARDIAC PACEMAKER (10) Pleural effusion, right Code(s): J90 - PLEURAL EFFUSION, NOT ELSEWHERE CLASSIFIED (11) Pulmonary hypertension Code(s): I27.2 - OTHER SECONDARY PULMONARY HYPERTENSION * DO NOT USE * (12) Sick sinus syndrome Code(s): I49.5 - SICK SINUS SYNDROME (13) Status post coronary artery stent placement Code(s): Z95.5 - PRESENCE OF CORONARY ANGIOPLASTY IMPLANT AND GRAFT (14) Systolic and diastolic CHF, acute on chronic Code(s): I50.43 - ACUTE ON CHRONIC COMBINED SYSTOLIC AND DIASTOLIC HRT FAIL (15) Type 2 diabetes mellitus Code(s): E11.9 - TYPE 2 DIABETES MELLITUS WITHOUT COMPLICATIONS Qualifiers: Diabetes mellitus complication status: with kidney complications Diabetes mellitus complication detail: with chronic kidney disease Chronic kidney disease stage: stage 3 (moderate) Assessment/Plan 02/09/2018 Echo: Normal LV size with severely decreased LV fxn, severe TR, severe pulm HTN, pacer in RV 1. Incarcerated spigelian hernia without strangulation for conservative management 2. Right pleural effusion with underlying history of breast carcinoma post mastectomy post chemotherapy, s/p pigtail catheter placement and chest tube 3. 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 CAD post PCI/stent angina pectoris 5. Persistent/chronic atrial fibrillation on anticoagulation, [id number] score of 6 6. AV block post PPM 7. Mitral valve and tricuspid valve regurgitation 8. HTN/HCVD 9. DM 10. Hypercholesterolemia 11. Acute on CKD with proteinuria and hyperkalemia resolving PLAN: 1. Coumadin held pending Pleur-X insertion 2. Continue Carvedilol 12.5 mg BID as tolerated (BP permitting) 3. Entresto 24/26 mg BID and monitor renal function and electrolytes 4. Chest tube management, bronchodilator and O2 as needed and IR for Pleur-X insertion
[2018-04-20] MEDS: MIRTAZAPINE 15 MG TABLET (FP) PO SCH (21:46)
[2018-04-21] MEDS: NYSTATIN POWDER 100,000 UNITS/GM - 15 GM TOPICAL POWDER TP SCH ×3 (06:29→22:17)
[2018-04-21] MEDS: TAMSULOSIN HCL 0.4 MG CAP PO SCH ×2 (08:00→15:07)
[2018-04-21 09:11] LABS: ANION GAP 4 MMOL/L (8-16); BLOOD UREA NITROGEN 56 mg/dL (7-18); CHLORIDE 108 mmol/L (98-107); CO2 28 mmol/L (21-32); CREATININE 1.8 mg/dL (0.55-1.3); GLUCOSE,RANDOM 76 mg/dL (74-106); SODIUM 140 mmol/L (136-145)
--- NOTE | 2018-04-21 09:56 | PN ---
Progress Note, Physician History of Present Illness: Dyspnea and cough resolved. Right chest tube draining. - Current Medication List Current Medications: Active Medications Acetaminophen (Tylenol -) 650 mg PO Q6H PRN PRN Reason: MODERATE PAIN Last Admin: 04/06/18 10:50 Dose: 650 mg Carvedilol (Coreg -) 12.5 mg PO BID [facility] Last Admin: 04/20/18 21:45 Dose: 12.5 mg Dextrose (Glucose Tablet -) 4 gm PO ONCE PRN PRN Reason: BG < 60mg/dl Last Admin: 04/15/18 01:20 Dose: 4 gm Guaifenesin (Robitussin -) 10 ml PO Q6H PRN PRN Reason: COUGH Last Admin: 04/02/18 22:15 Dose: 10 ml Mirtazapine (Remeron -) 7.5 mg PO HS [facility] Last Admin: 04/20/18 21:46 Dose: 7.5 mg Nystatin (Nystop Powder -) 1 applic TP QSHIFT [facility] Last Admin: 04/21/18 06:29 Dose: 1 applic Pantoprazole Sodium (Protonix -) 40 mg PO DAILY [facility] Last Admin: 04/20/18 10:28 Dose: 40 mg Polyethylene Glycol (Miralax (For Daily Use) -) 17 gm PO BID [facility] Last Admin: 04/20/18 21:46 Dose: Not Given Sacubitril/Valsartan (Entresto 24 Mg-26 Mg Tablet) 1 tab PO BID [facility] Last Admin: 04/20/18 21:45 Dose: 1 tab Senna (Senna -) 2 tab PO HS PRN PRN Reason: CONSTIPATION Last Admin: 04/07/18 00:08 Dose: 2 tab Sertraline HCl (Zoloft -) 25 mg PO DAILY [facility] Last Admin: 04/20/18 10:27 Dose: 25 mg Tamsulosin HCl (Flomax -) 0.4 mg PO DAILY@0830 [facility] Last Admin: 04/20/18 08:57 Dose: 0.4 mg - Objective Vital Signs: Vital Signs Temperature 97.9 F 04/21/18 09:31 Pulse Rate 69 04/21/18 09:28 Respiratory Rate 20 04/21/18 09:28 Blood Pressure 97/50 L 04/21/18 09:28 O2 Sat by Pulse Oximetry (%) 95 04/20/18 21:00 Constitutional: Yes: No Distress, Calm Neck: Yes: Supple Cardiovascular: Yes: Regular Rate and Rhythm Respiratory: Yes: Regular, Diminished, On Nasal O2, Other (Right chest tube with serous drainage) Gastrointestinal: Yes: Soft, Hypoactive Bowel Sounds Edema: No Labs: CBC, BMP 04/16/18 08:00 04/21/18 07:59 INR, PTT INR 1.35 (0.83-1.09) H 04/20/18 06:00 Problem List - Problems (1) Incarcerated hernia Code(s): K46.0 - UNSP ABDOMINAL HERNIA WITH OBSTRUCTION, WITHOUT GANGRENE (2) Acute on chronic renal failure Code(s): N17.9 - ACUTE KIDNEY FAILURE, UNSPECIFIED; N18.9 - CHRONIC KIDNEY DISEASE, UNSPECIFIED Qualifiers: Chronic kidney disease stage: stage 3 (moderate) (3) Afib Code(s): I48.91 - UNSPECIFIED ATRIAL FIBRILLATION Qualifiers: Atrial fibrillation type: persistent Qualified Code(s): I48.1 - Persistent atrial fibrillation (4) Anemia Code(s): D64.9 - ANEMIA, UNSPECIFIED Qualifiers: Anemia type: unspecified type Qualified Code(s): D64.9 - Anemia, unspecified (5) Anticoagulated on Coumadin Code(s): Z79.01 - RETIREMENT (CURRENT) USE OF ANTICOAGULANTS (6) Coronary artery disease Code(s): I25.10 - ATHSCL HEART DISEASE OF [place] CORONARY ARTERY W/O ANG PCTRS Qualifiers: Coronary Disease-Associated Artery/Lesion type: [place] artery [place] vs. transplanted heart: [place] heart Associated angina: without angina Qualified Code(s): I25.10 - Atherosclerotic heart disease of [place] coronary artery without angina pectoris (7) HTN (hypertension) Code(s): I10 - ESSENTIAL (PRIMARY) HYPERTENSION Qualifiers: Hypertension type: essential hypertension Qualified Code(s): I10 - Essential (primary) hypertension (8) Hyperlipidemia Code(s): E78.5 - HYPERLIPIDEMIA, UNSPECIFIED Qualifiers: Hyperlipidemia type: pure hypercholesterolemia Qualified Code(s): E78.00 - Pure hypercholesterolemia, unspecified; E78.0 - Pure hypercholesterolemia (9) Pacemaker Code(s): Z95.0 - PRESENCE OF CARDIAC PACEMAKER (10) Pleural effusion, right Code(s): J90 - PLEURAL EFFUSION, NOT ELSEWHERE CLASSIFIED (11) Pulmonary hypertension Code(s): I27.2 - OTHER SECONDARY PULMONARY HYPERTENSION * DO NOT USE * (12) Sick sinus syndrome Code(s): I49.5 - SICK SINUS SYNDROME (13) Status post coronary artery stent placement Code(s): Z95.5 - PRESENCE OF CORONARY ANGIOPLASTY IMPLANT AND GRAFT (14) Systolic and diastolic CHF, acute on chronic Code(s): I50.43 - ACUTE ON CHRONIC COMBINED SYSTOLIC AND DIASTOLIC HRT FAIL (15) Type 2 diabetes mellitus Code(s): E11.9 - TYPE 2 DIABETES MELLITUS WITHOUT COMPLICATIONS Qualifiers: Diabetes mellitus complication status: with kidney complications Diabetes mellitus complication detail: with chronic kidney disease Chronic kidney disease stage: stage 3 (moderate) Assessment/Plan 02/09/2018 Echo: Normal LV size with severely decreased LV fxn, severe TR, severe pulm HTN, pacer in RV 1. Incarcerated spigelian hernia without strangulation for conservative management 2. Right pleural effusion with underlying history of breast carcinoma post mastectomy post chemotherapy, s/p pigtail catheter placement and chest tube 3. 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 CAD post PCI/stent angina pectoris 5. Persistent/chronic atrial fibrillation on anticoagulation, [id number] score of 6 6. AV block post PPM 7. Mitral valve and tricuspid valve regurgitation 8. HTN/HCVD 9. DM 10. Hypercholesterolemia 11. Acute on CKD with proteinuria and hyperkalemia resolving PLAN: 1. Coumadin held pending Pleur-X insertion and resume once post-procedure hemostasis achieved 2. Continue Carvedilol 12.5 mg BID as tolerated (BP permitting) 3. Entresto 24/26 mg BID and monitor renal function and electrolytes 4. Chest tube management, bronchodilator and O2 as needed, planned for Pleur-X insertion today
[2018-04-21 10:03] LABS: INR 1.28 (0.83-1.09); PROTHROMBIN TIME (PATIENT) 15.2 SEC (9.7-13.0)
--- NOTE | 2018-04-21 10:47 | PN ---
Progress Note (short form) - Note Progress Note: PULMONARY Denies shortness of breath. For pleur-x placement today. Chest tube draining serous fluid. Vital Signs Period Temp Pulse Resp BP Sys/Soria Pulse Ox Last 24 Hr 97.8 F-98.4 F 64-99 20-20 94-137/42-60 95 Gen: NAD at rest Heart: RRR Lung: decreased breath sounds right base Abd: soft, nontender Ext: no edema Chest tube: serous fluid, no air leak CBC, BMP 04/16/18 08:00 04/21/18 07:59 Active Medications Acetaminophen (Tylenol -) 650 mg PO Q6H PRN PRN Reason: MODERATE PAIN Last Admin: 04/06/18 10:50 Dose: 650 mg Carvedilol (Coreg -) 12.5 mg PO BID [facility] Last Admin: 04/20/18 21:45 Dose: 12.5 mg Dextrose (Glucose Tablet -) 4 gm PO ONCE PRN PRN Reason: BG < 60mg/dl Last Admin: 04/15/18 01:20 Dose: 4 gm Guaifenesin (Robitussin -) 10 ml PO Q6H PRN PRN Reason: COUGH Last Admin: 04/02/18 22:15 Dose: 10 ml Mirtazapine (Remeron -) 7.5 mg PO HS [facility] Last Admin: 04/20/18 21:46 Dose: 7.5 mg Nystatin (Nystop Powder -) 1 applic TP QSHIFT [facility] Last Admin: 04/21/18 06:29 Dose: 1 applic Pantoprazole Sodium (Protonix -) 40 mg PO DAILY [facility] Last Admin: 04/20/18 10:28 Dose: 40 mg Polyethylene Glycol (Miralax (For Daily Use) -) 17 gm PO BID [facility] Last Admin: 04/20/18 21:46 Dose: Not Given Sacubitril/Valsartan (Entresto 24 Mg-26 Mg Tablet) 1 tab PO BID [facility] Last Admin: 04/20/18 21:45 Dose: 1 tab Senna (Senna -) 2 tab PO HS PRN PRN Reason: CONSTIPATION Last Admin: 04/07/18 00:08 Dose: 2 tab Sertraline HCl (Zoloft -) 25 mg PO DAILY [facility] Last Admin: 04/20/18 10:27 Dose: 25 mg Tamsulosin HCl (Flomax -) 0.4 mg PO DAILY@0830 [facility] Last Admin: 04/20/18 08:57 Dose: 0.4 mg A/P Right Pleural Effusion s/p pigtail catheter placement h/o Breast Ca Acute on Chronic Renal Failure LV Systolic Dysfunction CAD Atrial Fibrillation/AV block s/p PPM Mitral Regurgitation HTN DM - for pleur-x placement - monitor chest tube output - inhaled bronchodilators - O2 to keep SpO2 >90% - rate controlled - resume anticoagulation and d/c planning after pleur-x placement
--- NOTE | 2018-04-21 11:45 | PN ---
Progress Note (short form) - Note Progress Note: no distress did not get Pleurx catheter as pt's daughter wanted to speak with Pulmonary again Vital Signs - 24 hr 04/20/18 04/20/18 04/20/18 13:53 18:30 21:00 Temperature 98.2 F 98.4 F Pulse Rate 67 64 Respiratory 20 20 20 Rate Blood Pressure 94/46 L 102/52 L O2 Sat by Pulse 95 Oximetry (%) 04/20/18 04/21/18 04/21/18 22:00 06:00 09:28 Temperature 97.8 F Pulse Rate 99 H 67 69 Respiratory 20 20 20 Rate Blood Pressure 137/60 108/42 L 97/50 L O2 Sat by Pulse Oximetry (%) 04/21/18 09:31 Temperature 97.9 F Pulse Rate Respiratory Rate Blood Pressure O2 Sat by Pulse Oximetry (%) Current Medications Generic Name Dose Route Start Last Admin Trade Name Freq PRN Reason Stop Dose Admin Acetaminophen 650 mg 03/31/18 10:44 04/06/18 10:50 Tylenol - PO 650 mg Q6H PRN Administration MODERATE PAIN Carvedilol 12.5 mg 04/17/18 09:36 04/20/18 21:45 Coreg - PO 12.5 mg BID [facility] Administration Dextrose 4 gm 03/19/18 23:22 04/15/18 01:20 Glucose Tablet - PO 4 gm ONCE PRN Administration BG < 60mg/dl Guaifenesin 10 ml 03/18/18 18:32 04/02/18 22:15 Robitussin - PO 10 ml Q6H PRN Administration COUGH Mirtazapine 7.5 mg 04/06/18 22:00 04/20/18 21:46 Remeron - PO 7.5 mg HS [facility] Administration Nystatin 1 applic 03/28/18 14:00 04/21/18 06:29 Nystop Powder - TP 1 applic QSHIFT [facility] Administration Pantoprazole Sodium 40 mg 03/20/18 10:00 04/20/18 10:28 Protonix - PO 40 mg DAILY [facility] Administration Polyethylene Glycol 17 gm 03/23/18 11:30 04/20/18 21:46 Miralax (For Daily Use) - PO Not Given BID [facility] Sacubitril/Valsartan 1 tab 04/13/18 12:45 04/20/18 21:45 Entresto 24 Mg-26 Mg Tablet PO 1 tab BID [facility] Administration Senna 2 tab 03/23/18 11:16 04/07/18 00:08 Senna - PO 2 tab HS PRN Administration CONSTIPATION Sertraline HCl 25 mg 04/07/18 10:00 04/20/18 10:27 Zoloft - PO 25 mg DAILY [facility] Administration Tamsulosin HCl 0.4 mg 03/20/18 08:30 04/20/18 08:57 Flomax - PO 0.4 mg DAILY@0830 [facility] Administration Laboratory Results - last 24 hr 04/21/18 04/21/18 04/21/18 06:38 07:59 07:59 PT with INR 15.20 H INR 1.28 H Sodium 140 Potassium 5.0 Chloride 108 H Carbon Dioxide 28 Anion Gap 4 L BUN 56 H Creatinine 1.8 H Creat Clearance w eGFR 36.39 POC Glucometer 92 Random Glucose 76 Calcium 9.0 Intake & Output 04/18/18 04/19/18 04/20/18 04/21/18 23:59 23:59 23:59 23:59 Intake Total 700 850 200 0 Output Total 260 325 395 112 Balance 440 525 -195 -112 Physical Examination Constitutional: Yes: No Distress, comfortable Cardiovascular: Yes: Regular Rate and Rhythm Respiratory: Yes: Diminished - chest tube -- draining 12 ml so far Gastrointestinal: Yes: soft/ hernia + bs present, NT Edema: No Neuro- a0x3 a/p stable not SOB no JVD nebs prn coumadin on hold INR subtherapeutic daughter now wants pt to be transferred to SNF afterwards-- spoke with correctional case records supervisor monitor for hypoglycemia continue with meds keep pt NPO - in case daughter agrees today Coumadin to be restarted if he gets catheter placed as per IR Problem List - Problems (1) Incarcerated hernia Code(s): K46.0 - UNSP ABDOMINAL HERNIA WITH OBSTRUCTION, WITHOUT GANGRENE (2) Abnormal INR Code(s): R79.1 - ABNORMAL COAGULATION PROFILE (3) Afib Code(s): I48.91 - UNSPECIFIED ATRIAL FIBRILLATION Qualifiers: Atrial fibrillation type: persistent Qualified Code(s): I48.1 - Persistent atrial fibrillation (4) Anemia Code(s): D64.9 - ANEMIA, UNSPECIFIED Qualifiers: Anemia type: unspecified type Qualified Code(s): D64.9 - Anemia, unspecified (5) Anticoagulated on Coumadin Code(s): Z79.01 - HOT [place]ATE [place] PRESS OPERATOR (CURRENT) USE OF ANTICOAGULANTS (6) Breast cancer in male Code(s): C50.929 - MALIGNANT NEOPLASM OF [place]SP SITE OF UNSPECIFIED MALE BREAST (7) Chronic kidney disease (CKD) Code(s): N18.9 - CHRONIC KIDNEY DISEASE, UNSPECIFIED Qualifiers: Chronic kidney disease stage: unspecified stage Qualified Code(s): N18.9 - Chronic kidney disease, unspecified
[2018-04-21] MEDS: PANTOPRAZOLE 40 MG TABLET (FP) PO SCH (15:06)
[2018-04-21] MEDS: SERTRALINE HCL 25 MG TABLET (FP) PO SCH (15:07)
[2018-04-21] MEDS: CARVEDILOL 12.5 MG TABLET (FP) PO SCH ×2 (15:08→22:16)
[2018-04-21] MEDS: POLYETHYLENE GLYCOL 3350 119 GM BTL PO SCH ×2 (15:08→22:12)
[2018-04-21] MEDS ORDERED: PT OWN MED DRAWER 7, Y5N ONE ×2 (15:09→20:38)
[2018-04-21] MEDS: SACUBITRIL/VALSARTAN 24 MG-26 MG TABLET PO SCH ×2 (15:10→22:16)
[2018-04-21] MEDS: MIRTAZAPINE 15 MG TABLET (FP) PO SCH (22:17)
[2018-04-22] MEDS: NYSTATIN POWDER 100,000 UNITS/GM - 15 GM TOPICAL POWDER TP SCH ×3 (05:47→21:57)
[2018-04-22 07:05] LABS: HEMATOCRIT 25.9 % (35.4-49); HEMOGLOBIN 8.6 GM/dL (11.7-16.9); MCH 32.1 pg (25.7-33.7); MCHC 33.3 g/dl (32.0-35.9); MEAN CELL VOLUME 96.6 fl (80-96); MEAN PLT VOLUME 8.5 fl (7.5-11.1); PLATELET COUNT 180 K/MM3 (134-434); RBC 2.68 M/mm3 (4.00-5.60); RDW 15.9 % (11.9-15.9); WHITE BLOOD COUNT 8.4 K/mm3 (4.0-10.0)
[2018-04-22 07:19] LABS: INR 1.28 (0.83-1.09); PROTHROMBIN TIME (PATIENT) 15.2 SEC (9.7-13.0)
[2018-04-22 07:32] LABS: ANION GAP 6 MMOL/L (8-16); BLOOD UREA NITROGEN 61 mg/dL (7-18); CALCIUM 9.1 mg/dL (8.5-10.1); CHLORIDE 106 mmol/L (98-107); CO2 25 mmol/L (21-32); CREATININE 1.9 mg/dL (0.55-1.3); GLUCOSE,RANDOM 190 mg/dL (74-106); POTASSIUM 4.6 mmol/L (3.5-5.1); SODIUM 137 mmol/L (136-145)
[2018-04-22] MEDS ORDERED: PT OWN MED DRAWER 7, Y5N ONE ×2 (09:24→21:35)
[2018-04-22] MEDS: CARVEDILOL 12.5 MG TABLET (FP) PO SCH ×2 (09:33→21:49)
[2018-04-22] MEDS: guaiFENesin 200 MG/10 ML 10 ML UNIT-DOSE CUPS PO PRN (09:33)
[2018-04-22] MEDS: SERTRALINE HCL 25 MG TABLET (FP) PO SCH (09:33)
[2018-04-22] MEDS: PANTOPRAZOLE 40 MG TABLET (FP) PO SCH (09:33)
[2018-04-22] MEDS: SACUBITRIL/VALSARTAN 24 MG-26 MG TABLET PO SCH ×2 (09:34→21:49)
[2018-04-22] MEDS: TAMSULOSIN HCL 0.4 MG CAP PO SCH (09:34)
[2018-04-22] MEDS: POLYETHYLENE GLYCOL 3350 119 GM BTL PO SCH ×2 (09:37→21:49)
--- NOTE | 2018-04-22 11:12 | PN ---
Progress Note (short form) - Note Progress Note: pt seen/examined chart reviewed Daughter refused Pleurax . comfortable no distress Vital Signs Temp 96.9 F L 04/22/18 09:00 Pulse 72 04/22/18 09:00 Resp 18 04/22/18 09:00 BP 116/56 L 04/22/18 09:00 Pulse Ox 98 04/21/18 21:00 Intake & Output 04/21/18 04/21/18 04/22/18 11:59 23:59 11:59 Intake Total 800 800 Output Total 12 740 0 Balance -12 60 800 Intake: Oral 800 800 Output: Chest Tube Drainage 12 40 0 Right Mediastinal 12 40 0 Urine 700 Void 700 Other: Voiding Method Urinal Urinal Urinal # Unmeasured Voids Void 1 Bowel Movement No Active Medications Acetaminophen (Tylenol -) 650 mg PO Q6H PRN PRN Reason: MODERATE PAIN Last Admin: 04/06/18 10:50 Dose: 650 mg Carvedilol (Coreg -) 12.5 mg PO BID [facility] Last Admin: 04/22/18 09:33 Dose: 12.5 mg Dextrose (Glucose Tablet -) 4 gm PO ONCE PRN PRN Reason: BG < 60mg/dl Last Admin: 04/15/18 01:20 Dose: 4 gm Guaifenesin (Robitussin -) 10 ml PO Q6H PRN PRN Reason: COUGH Last Admin: 04/22/18 09:33 Dose: 10 ml Mirtazapine (Remeron -) 7.5 mg PO HS [facility] Last Admin: 04/21/18 22:17 Dose: 7.5 mg Nystatin (Nystop Powder -) 1 applic TP QSHIFT [facility] Last Admin: 04/22/18 05:47 Dose: 1 applic Pantoprazole Sodium (Protonix -) 40 mg PO DAILY [facility] Last Admin: 04/22/18 09:33 Dose: 40 mg Polyethylene Glycol (Miralax (For Daily Use) -) 17 gm PO BID [facility] Last Admin: 04/22/18 09:37 Dose: 17 grams Sacubitril/Valsartan (Entresto 24 Mg-26 Mg Tablet) 1 tab PO BID [facility] Last Admin: 04/22/18 09:34 Dose: 1 tab Senna (Senna -) 2 tab PO HS PRN PRN Reason: CONSTIPATION Last Admin: 04/07/18 00:08 Dose: 2 tab Sertraline HCl (Zoloft -) 25 mg PO DAILY [facility] Last Admin: 04/22/18 09:33 Dose: 25 mg Tamsulosin HCl (Flomax -) 0.4 mg PO DAILY@0830 [facility] Last Admin: 04/22/18 09:34 Dose: 0.4 mg CBC, BMP 04/22/18 06:45 04/22/18 06:45 Physical Examination Constitutional: Yes: No Distress, comfortable Cardiovascular: Yes: Regular Rate and Rhythm Respiratory: Yes: Diminished - chest tube -- draining little Gastrointestinal: Yes: soft/ hernia + bs present, NT Edema: No Neuro- a0x3 a/p stable not SOB no JVD nebs prn coumadin on hold-- restart tonight after chest tube removal daughter now wants pt to be transferred to SNF afterwards-- spoke with case management social worker also today monitor for hypoglycemia continue with meds Pulmonary to follow will follow Discussed with nursing staff also Problem List - Problems (1) Incarcerated hernia Code(s): K46.0 - UNSP ABDOMINAL HERNIA WITH OBSTRUCTION, WITHOUT GANGRENE (2) Abnormal INR Code(s): R79.1 - ABNORMAL COAGULATION PROFILE (3) Afib Code(s): I48.91 - UNSPECIFIED ATRIAL FIBRILLATION Qualifiers: Atrial fibrillation type: persistent Qualified Code(s): I48.1 - Persistent atrial fibrillation (4) Anticoagulated on Coumadin Code(s): Z79.01 - PRISON (CURRENT) USE OF ANTICOAGULANTS (5) Ascites Code(s): R18.8 - OTHER ASCITES Qualifiers: Ascites type: other type Qualified Code(s): R18.8 - Other ascites (6) Breast cancer in male Code(s): C50.929 - MALIGNANT NEOPLASM OF UNSP SITE OF UNSPECIFIED MALE BREAST (7) Chronic kidney disease (CKD) Code(s): N18.9 - CHRONIC KIDNEY DISEASE, UNSPECIFIED Qualifiers: Chronic kidney disease stage: unspecified stage Qualified Code(s): N18.9 - Chronic kidney disease, unspecified (8) Coronary artery disease Code(s): I25.10 - ATHSCL HEART DISEASE OF [place] CORONARY ARTERY W/O ANG PCTRS Qualifiers: Coronary Disease-Associated Artery/Lesion type: [place] artery [place] vs. transplanted heart: [place] heart Associated angina: without angina Qualified Code(s): I25.10 - Atherosclerotic heart disease of [place] coronary artery without angina pectoris (9) Pacemaker Code(s): Z95.0 - PRESENCE OF CARDIAC PACEMAKER (10) Pleural effusion Code(s): J90 - PLEURAL EFFUSION, NOT ELSEWHERE CLASSIFIED
--- NOTE | 2018-04-22 14:17 | PN ---
Progress Note (short form) - Note Progress Note: PULMONARY PLEUREX REFUSED BY FAMILY PIGTAIL STILL IN PLACE VSS/AFEBRILE Gen: NAD at rest Heart: RRR Lung: decreased breath sounds right base/right pigtail Abd: soft, nontender Ext: no edema Chest tube: serous fluid, no air leak Active Medications noted A/P Right Pleural Effusion s/p pigtail catheter placement h/o Breast Ca Acute on Chronic Renal Failure LV Systolic Dysfunction CAD Atrial Fibrillation/AV block s/p PPM Mitral Regurgitation HTN DM - pleur-x placement refused - chest tube output minimal - inhaled bronchodilators - O2 to keep SpO2 >90% - rate controlled - resume anticoagulation after pigtail removed Primo CAMP MD
--- NOTE | 2018-04-22 14:46 | DS ---
Physical Examination Vital Signs: Vital Signs Temperature 97.3 F L 04/22/18 14:19 Pulse Rate 66 04/22/18 14:19 Respiratory Rate 18 04/22/18 14:19 Blood Pressure 93/45 L 04/22/18 14:19 O2 Sat by Pulse Oximetry (%) 98 04/22/18 09:00 Findings/Remarks: see today progress note Labs: CBC, BMP 04/22/18 06:45 04/22/18 06:45 Discharge Summary Reason For Visit: ACUTE ON CHRONIC RENAL FAILURE Current Active Problems Incarcerated hernia (Acute) Hospital Course: pt with extensive h/o -- The patient is an 82 year old male with a significant past medical history of CAD (s/p PCI stent), AFib (on Warfarin), HTN, CHF, DM, breast CA (s/p mastectomy ), and CKD, who presents to the emergency department today complaining of mucous congestion for over a month. found to have large pleural effusion pulmonary/ cardiology followed ct chest / abd also done Paracentesis also done chest tube placed -- replaced recurrent Effusion Pleurex catheter =-- Daughter refused Chest tube replaced d/c to snf condition gaurded cleared by pulmonary for d/c meds reconcilled restart coumadin Discussed with nursing staff/case manger Condition: Guarded - Instructions Disposition: RESIDENTIAL FACILITY - Home Medications Comprehensive Discharge Medication List: Ambulatory Orders Sertraline HCl [Zoloft -] 50 mg PO DAILY 03/27/15 Carvedilol [Coreg -] 25 mg PO BID #60 tablet 09/27/15 Polyethylene Glycol 3350 [Miralax 119 gm Btl -] 17 gm PO DAILY PRN #1 bottle Furosemide [Lasix] 40 mg PO DAILY 30 Days #30 tablet 02/14/18 Tamsulosin HCl [Flomax -] 0.4 mg PO DAILY@0830 cap.er.24h 02/14/18 Acetaminophen [Tylenol .Regular Strength -] 650 mg PO Q6H PRN tablet 04/22/18 Dextrose Tablet [Glucose Tablet -] 4 gm PO ONCE PRN tab.chew 04/22/18 Guaifenesin [Robitussin -] 10 ml PO Q6H PRN cup 04/22/18 Mirtazapine [Remeron -] 7.5 mg PO HS tablet 04/22/18 Nystatin Powder [Nystop Powder -] 1 applic TP QSHIFT applic 04/22/18 Pantoprazole Sodium [Protonix -] 40 mg PO DAILY tablet.ec 04/22/18 Sacubitril/Valsartan [Entresto 24 mg-26 mg Tablet] 1 tab PO BID tablet Sennosides [Senna -] 2 tab PO HS PRN tablet 04/22/18 Warfarin Sodium [Coumadin] 3 mg PO DAILY #30 tablet 04/22/18
--- NOTE | 2018-04-22 14:47 | PN ---
Progress Note (short form) - Note Progress Note: PULMONARY USING ASEPTIC TECHNIQUE RIGHT PIG TAIL CATHETER REMOVED. PATIENT TOLERATED PROCEDURE WELL. Primo CAMP MD
[2018-04-22] MEDS ORDERED: WARFARIN NA 5 MG TABLET (UD) PO ONE (14:52)
--- NOTE | 2018-04-22 18:41 | PN ---
Progress Note, Physician Chief Complaint: Events noted No chest pain or SOB History of Present Illness: Patient was seen and examined. Chart was reviewed Generalized weakness - Current Medication List Current Medications: Active Medications Acetaminophen (Tylenol -) 650 mg PO Q6H PRN PRN Reason: MODERATE PAIN Last Admin: 04/06/18 10:50 Dose: 650 mg Carvedilol (Coreg -) 12.5 mg PO BID [facility] Last Admin: 04/22/18 09:33 Dose: 12.5 mg Dextrose (Glucose Tablet -) 4 gm PO ONCE PRN PRN Reason: BG < 60mg/dl Last Admin: 04/15/18 01:20 Dose: 4 gm Guaifenesin (Robitussin -) 10 ml PO Q6H PRN PRN Reason: COUGH Last Admin: 04/22/18 09:33 Dose: 10 ml Mirtazapine (Remeron -) 7.5 mg PO HS [facility] Last Admin: 04/21/18 22:17 Dose: 7.5 mg Nystatin (Nystop Powder -) 1 applic TP QSHIFT [facility] Last Admin: 04/22/18 15:23 Dose: 1 applic Pantoprazole Sodium (Protonix -) 40 mg PO DAILY [facility] Last Admin: 04/22/18 09:33 Dose: 40 mg Polyethylene Glycol (Miralax (For Daily Use) -) 17 gm PO BID [facility] Last Admin: 04/22/18 09:37 Dose: 17 grams Sacubitril/Valsartan (Entresto 24 Mg-26 Mg Tablet) 1 tab PO BID [facility] Last Admin: 04/22/18 09:34 Dose: 1 tab Senna (Senna -) 2 tab PO HS PRN PRN Reason: CONSTIPATION Last Admin: 04/07/18 00:08 Dose: 2 tab Sertraline HCl (Zoloft -) 25 mg PO DAILY [facility] Last Admin: 04/22/18 09:33 Dose: 25 mg Tamsulosin HCl (Flomax -) 0.4 mg PO DAILY@0830 [facility] Last Admin: 04/22/18 09:34 Dose: 0.4 mg - Objective Vital Signs: Vital Signs Temperature 97.3 F L 04/22/18 14:19 Pulse Rate 66 04/22/18 14:19 Respiratory Rate 18 04/22/18 14:19 Blood Pressure 93/45 L 04/22/18 14:19 O2 Sat by Pulse Oximetry (%) 98 04/22/18 09:00 HENT: Yes: Atraumatic Neck: Yes: Supple Cardiovascular: Yes: Pulse Irregular, S1, S2 Respiratory: Yes: Diminished Gastrointestinal: Yes: Normal Bowel Sounds, Soft. No: Tenderness Edema: No Labs: CBC, BMP 04/22/18 06:45 04/22/18 06:45 INR, PTT INR 1.28 (0.83-1.09) H 04/22/18 06:45 Problem List - Problems (1) Incarcerated hernia Code(s): K46.0 - UNSP ABDOMINAL HERNIA WITH OBSTRUCTION, WITHOUT GANGRENE (2) Acute on chronic congestive heart failure Code(s): I50.9 - HEART FAILURE, UNSPECIFIED (3) Acute on chronic renal failure Code(s): N17.9 - ACUTE KIDNEY FAILURE, UNSPECIFIED; N18.9 - CHRONIC KIDNEY DISEASE, UNSPECIFIED Qualifiers: Chronic kidney disease stage: stage 3 (moderate) (4) Afib Code(s): I48.91 - UNSPECIFIED ATRIAL FIBRILLATION Qualifiers: Atrial fibrillation type: persistent Qualified Code(s): I48.1 - Persistent atrial fibrillation (5) Anemia Code(s): D64.9 - ANEMIA, UNSPECIFIED Qualifiers: Anemia type: unspecified type Qualified Code(s): D64.9 - Anemia, unspecified (6) Anticoagulated on Coumadin Code(s): Z79.01 - NURSING HOME (CURRENT) USE OF ANTICOAGULANTS (7) Chronic kidney disease (CKD) Code(s): N18.9 - CHRONIC KIDNEY DISEASE, UNSPECIFIED Qualifiers: Chronic kidney disease stage: unspecified stage Qualified Code(s): N18.9 - Chronic kidney disease, unspecified (8) Coronary artery disease Code(s): I25.10 - ATHSCL HEART DISEASE OF [place] CORONARY ARTERY W/O ANG PCTRS Qualifiers: Coronary Disease-Associated Artery/Lesion type: [place] artery [place] vs. transplanted heart: [place] heart Associated angina: without angina Qualified Code(s): I25.10 - Atherosclerotic heart disease of [place] coronary artery without angina pectoris (9) HTN (hypertension) Code(s): I10 - ESSENTIAL (PRIMARY) HYPERTENSION Qualifiers: Hypertension type: essential hypertension Qualified Code(s): I10 - Essential (primary) hypertension (10) Hyperlipidemia Code(s): E78.5 - HYPERLIPIDEMIA, UNSPECIFIED Qualifiers: Hyperlipidemia type: pure hypercholesterolemia Qualified Code(s): E78.00 - Pure hypercholesterolemia, unspecified; E78.0 - Pure hypercholesterolemia (11) Pacemaker Code(s): Z95.0 - PRESENCE OF CARDIAC PACEMAKER (12) Pleural effusion Code(s): J90 - PLEURAL EFFUSION, NOT ELSEWHERE CLASSIFIED (13) Pulmonary hypertension Code(s): I27.2 - OTHER SECONDARY PULMONARY HYPERTENSION * DO NOT USE * (14) Sick sinus syndrome Code(s): I49.5 - SICK SINUS SYNDROME (15) Status post coronary artery stent placement Code(s): Z95.5 - PRESENCE OF CORONARY ANGIOPLASTY IMPLANT AND GRAFT (16) Supratherapeutic INR Code(s): R79.1 - ABNORMAL COAGULATION PROFILE (17) Systolic and diastolic CHF, acute on chronic Code(s): I50.43 - ACUTE ON CHRONIC COMBINED SYSTOLIC AND DIASTOLIC HRT FAIL (18) Type 2 diabetes mellitus Code(s): E11.9 - TYPE 2 DIABETES MELLITUS WITHOUT COMPLICATIONS Qualifiers: Diabetes mellitus complication status: with kidney complications Diabetes mellitus complication detail: with chronic kidney disease Chronic kidney disease stage: stage 3 (moderate) Assessment/Plan 1. Incarcerated spigelian hernia without strangulation for conservative management 2. Right pleural effusion with underlying history of breast carcinoma post mastectomy post chemotherapy, s/p pigtail catheter placement and chest tube 3. 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 CAD post PCI/stent angina pectoris 5. Persistent/chronic atrial fibrillation on anticoagulation, [id number] score of 6 6. AV block post PPM 7. Mitral valve and tricuspid valve regurgitation 8. HTN/HCVD 9. DM 10. Hypercholesterolemia 11. Acute on CKD with proteinuria and hyperkalemia resolving PLAN: 1. Coumadin to be restarted when cleared 2. Continue Carvedilol 12.5 mg BID as tolerated (BP permitting) 3. Entresto 24/26 mg BID and monitor renal function and electrolytes 4. Current management for the catheter Further plans are to follow Chente Gasca MD
[2018-04-22] MEDS: MIRTAZAPINE 15 MG TABLET (FP) PO SCH (21:50)
[2018-04-23] MEDS: NYSTATIN POWDER 100,000 UNITS/GM - 15 GM TOPICAL POWDER TP SCH (06:28)
[2018-04-23] MEDS: TAMSULOSIN HCL 0.4 MG CAP PO SCH (09:11)
[2018-04-23] MEDS: PANTOPRAZOLE 40 MG TABLET (FP) PO SCH (09:12)
[2018-04-23] MEDS: SERTRALINE HCL 25 MG TABLET (FP) PO SCH (09:12)
[2018-04-23] MEDS: CARVEDILOL 12.5 MG TABLET (FP) PO SCH (09:12)
[2018-04-23] MEDS: SACUBITRIL/VALSARTAN 24 MG-26 MG TABLET PO SCH (09:13)
[2018-04-23] MEDS: POLYETHYLENE GLYCOL 3350 119 GM BTL PO SCH (09:25)
[2018-04-23 10:42] VITALS: BP 98/56; PULSE 66; TEMP 97.6
== END 2018-04-23 11:27 | DRG 187 ==
LOC: JER 19:05 → JERBED 22:40 → J5S 03-19 01:23
PROVIDERS: ADMIT Internal Medicine; ATTEND Internal Medicine
PROC: 0W9930Z Drainage of Right Pleural Cavity with Drainage Device, Percutaneous Approach (ICD-10-PCS; principal; 2018-03-25)
PROC: 0W9930Z Drainage of Right Pleural Cavity with Drainage Device, Percutaneous Approach (ICD-10-PCS; 2018-04-04)
PROC: 0W9930Z Drainage of Right Pleural Cavity with Drainage Device, Percutaneous Approach (ICD-10-PCS; 2018-04-08)
PROC: 0BPQX0Z Removal of Drainage Device from Pleura, External Approach (ICD-10-PCS; 2018-04-22)
DX: J90 Pleural effusion, not elsewhere classified (principal); K46.0 Unspecified abdominal hernia with obstruction, without gangrene; N17.9 Acute kidney failure, unspecified; J98.11 Atelectasis; I13.0 Hypertensive heart and chronic kidney disease with heart failure and stage 1 through stage 4 chronic kidney disease, or unspecified chronic kidney disease; I50.22 Chronic systolic (congestive) heart failure; R18.8 Other ascites; I48.1 Persistent atrial fibrillation; J93.83 Other pneumothorax; I25.10 Atherosclerotic heart disease of native coronary artery without angina pectoris; D64.9 Anemia, unspecified; E78.00 Pure hypercholesterolemia, unspecified; I27.20 Pulmonary hypertension, unspecified; I08.1 Rheumatic disorders of both mitral and tricuspid valves; I49.5 Sick sinus syndrome; R79.1 Abnormal coagulation profile; E87.5 Hyperkalemia; E11.22 Type 2 diabetes mellitus with diabetic chronic kidney disease; N18.3 Chronic kidney disease, stage 3 (moderate); Z85.3 Personal history of malignant neoplasm of breast; Z95.0 Presence of cardiac pacemaker; Z79.01 Long term (current) use of anticoagulants; Z95.5 Presence of coronary angioplasty implant and graft
CPT/HCPCS: 32555; 32557; 36415; 71045-TC-FY; 71046-TC-FY; 71250-TC; 74176-TC; 76604-TC; 76942-TC; 76998-TC; 80048; 80053; 81003; 81015; 82140; 82550; 82962; 83036; 83605; 84484; 85025; 85027; 85610; 85730; 86850; 86900; 86901; 87040; 87070; 87075; 87086; 87205; 87804; 93005; 93010; 94640; 97116-GP; 97161-GP; 99285-25; C1729; C1769; J0131